=== PATIENT | female | born 1945 | race Caucasian/White ===

== ENCOUNTER 2018-06-11 09:00 | Day surgery (SDC) | payer OTHER ==
[2018-06-11] MEDS ORDERED: Ringers Lactate 1,000 ML IV ONE (09:44)
[2018-06-11] MEDS ORDERED: PROPOFOL 200 MG/20 ML VIAL IV ONE ×2 (11:01→11:36)
[2018-06-11] MEDS ORDERED: NS 0.9% VIAL 10 ML ONE (11:28)
[2018-06-11] MEDS ORDERED: Phenylephrine HCl 10 MG/ML 1 ML VIAL ONE (11:28)
[2018-06-11] MEDS ORDERED: MIDAZOLAM HCL 2 MG/2 ML INJ ONE (11:36)
[2018-06-11 12:12] VITALS: BP 100/52; TEMP 98.3; O2SAT 95
--- NOTE | 2018-06-11 12:57 | ENDO RPT ---
[address], [address] EGD PROCEDURE REPORT EXAM DATE: 06/11/2018 PATIENT NAME: Breanne Montes De Oca MR#: [id number] BIRTHDATE: 1945 ATTENDING: Maxwell Dudley Dr STATUS: outpatient STUBBER: Ginette Mo and Nery Chau RN INDICATIONS: The patient is a 73 yr old Female here for an EGD due to melenic bleeding, nausea, and weight loss PROCEDURE PERFORMED: EGD with biopsy MEDICATIONS: Per Anesthesia. TOPICAL ANESTHETIC: none CONSENT: The patient understands the risks and benefits of the procedure and understands that these risks include, but are not limited to: sedation, allergic reaction, infection, perforation and/or bleeding. Alternative means of evaluation and treatment include, among others: physical exam, x-rays, and/or surgical intervention. The patient elects to proceed with this endoscopic procedure. DESCRIPTION OF PROCEDURE: During intra-op preparation period all mechanical medical equipment was checked for proper function. Hand hygiene and appropriate measures for infection prevention was taken. Procedure, possible complications, and alternatives including but not limited to the possibility of bleeding, perforation, tear, infection, sepsis, need for surgery, need for blood transfusion, and anesthesia related complications were explained to the patient. After the risks, benefits and alternatives of the procedure were thoroughly explained, Informed consent was verified, confirmed and timeout was successfully executed by the treatment team. The patient was placed in the left lateral position. The patient was anesthetized with topical anesthesia. Through the anesthetized oropharyngeal area, the scope was passed without any difficulty. The EG-[id number] ([id number]) endoscope was introduced through the mouth and advanced to the third portion of the duodenum. Retroflexed views revealed a small hiatal hernia. The gastroscope was then slowly withdrawn and removed. A Schatzki's ring was found in the lower esophagus. A small hiatal hernia was found Mild gastritis was found in the antrum. Multiple biopsies were obtained and sent to pathology. Erosion in the antrum. 6 mm submucosal nodule in the antrum. Duodenitis was found in the bulb and descending duodenum. ADVERSE EVENTS: There were no complications. IMPRESSIONS: 1. A Schatzki's ring in the lower esophagus (no history of dysphagia) 2. A small hiatal hernia 3. Mild gastritis in the antrum 4. Erosion in the antrum 5. 6 mm submucosal nodule in the antrum 6. Mild duodenitis in the bulb and descending duodenum RECOMMENDATIONS: 1. await biopsy results 2. acid suppression therapy REPEAT EXAM: Maxwell Dudley Dr eSigned: Maxwell Dudley Dr 06/11/2018 11:29 AM Revised: 06/11/2018 11:29 AM cc: Pavithra Hernandez CPT CODES: ICD9 CODES: PATIENT NAME: Breanne Montes De Oca MR#: [id number]
--- NOTE | 2018-06-11 12:57 | ENDO RPT ---
[address], [address] COLONOSCOPY PROCEDURE REPORT EXAM DATE: 06/11/2018 PATIENT NAME: Breanne Montes De Oca MR #: [id number] BIRTHDATE: 1945 ATTENDING: Maxwell Dudley Dr STATUS: outpatient MEDICAL CENTER MANAGER: Ginette Mo and Nery Chau RN INDICATIONS: The patient is a 73 yr old Female here for a colonoscopy due to abdominal pain, change in bowel habits, constipation, melenic bleeding, and weight loss PROCEDURE PERFORMED: Colonoscopy MEDICATIONS: Per Anesthesia. ESTIMATED BLOOD LOSS: None CONSENT: The patient understands the risks and benefits of the procedure and understands that these risks include, but are not limited to: sedation, allergic reaction, infection, perforation and/or bleeding. Alternative means of evaluation and treatment include, among others: physical exam, x-rays, and/or surgical intervention. The patient elects to proceed with this endoscopic procedure. DESCRIPTION OF PROCEDURE: During intra-op preparation period all mechanical medical equipment was checked for proper function. Hand hygiene and appropriate measures for infection prevention was taken. Procedure, possible complications, alternatives including, but not limited to possibility of bleeding, perforation, tear, infection, sepsis, need for surgery, need for blood transfusion, were explained to the patient. After the risks, benefits and alternatives of the procedure were thoroughly explained, Informed consent was verified, confirmed and timeout was successfully executed by the treatment team. The patient was placed in the left lateral position. A digital rectal exam was performed and revealed no abnormalities of the rectum. After appropriate level of anesthesia, the scope was passed. The EG-[id number] ([id number]) and [id number] ([id number]) endoscope was introduced through the anus and advanced to the cecum. The quality of the prep was poor. The instrument was then slowly withdrawn as the colon was fully examined. Scope withdrawal time was 9 minutes. COLON FINDINGS: Moderate diverticulosis was noted in the sigmoid colon. No bleeding was noted from the diverticulosis. Diverticula was found throughout the entire examined colon. The opening was medium sized. Moderate sized internal hemorrhoids were found. Retroflexed views revealed medium hemorrhoids. The scope was then completely withdrawn from the patient and the procedure terminated. ADVERSE EVENTS: There were no complications. IMPRESSIONS: 1. Moderate diverticulosis in the sigmoid colon 2. Diverticula throughout the remainder of the examined colon 3. Moderate sized internal hemorrhoids 4. Intubation to cecum RECOMMENDATIONS: 1. fiber rich diet 2. yearly hemoccult (poor prep) 3. constipation therapy RECALL: Return in 5 year(s) for Colonoscopy. Maxwell Dudley Dr eSigned: Maxwell Dudley Dr 06/11/2018 11:59 AM cc: Pavithra Hernandez CPT CODES: ICD9 CODES: PATIENT NAME: Breanne Montes De Oca MR#: [id number]
--- NOTE | 2018-06-11 12:57 | ENDO RPT ---
[address], [address] EGD PROCEDURE REPORT EXAM DATE: 06/11/2018 PATIENT NAME: Breanne Montes De Oca MR#: [id number] BIRTHDATE: 1945 ATTENDING: Maxwell Dudley Dr STATUS: outpatient ROSS FURNACE OPERATOR: Ginette Mo and Nery Chau RN INDICATIONS: The patient is a 73 yr old Female here for an EGD due to melenic bleeding, nausea, and weight loss PROCEDURE PERFORMED: EGD with biopsy MEDICATIONS: Per Anesthesia. TOPICAL ANESTHETIC: none CONSENT: The patient understands the risks and benefits of the procedure and understands that these risks include, but are not limited to: sedation, allergic reaction, infection, perforation and/or bleeding. Alternative means of evaluation and treatment include, among others: physical exam, x-rays, and/or surgical intervention. The patient elects to proceed with this endoscopic procedure. DESCRIPTION OF PROCEDURE: During intra-op preparation period all mechanical medical equipment was checked for proper function. Hand hygiene and appropriate measures for infection prevention was taken. Procedure, possible complications, and alternatives including but not limited to the possibility of bleeding, perforation, tear, infection, sepsis, need for surgery, need for blood transfusion, and anesthesia related complications were explained to the patient. After the risks, benefits and alternatives of the procedure were thoroughly explained, Informed consent was verified, confirmed and timeout was successfully executed by the treatment team. The patient was placed in the left lateral position. The patient was anesthetized with topical anesthesia. Through the anesthetized oropharyngeal area, the scope was passed without any difficulty. The EG-[id number] ([id number]) endoscope was introduced through the mouth and advanced to the third portion of the duodenum. Retroflexed views revealed a small hiatal hernia. The gastroscope was then slowly withdrawn and removed. A Schatzki's ring was found in the lower esophagus. A small hiatal hernia was found Mild gastritis was found in the antrum. Multiple biopsies were obtained and sent to pathology. Erosion in the antrum. Duodenitis was found in the bulb and descending duodenum. ADVERSE EVENTS: There were no complications. IMPRESSIONS: 1. A Schatzki's ring in the lower esophagus (no history of dysphagia) 2. A small hiatal hernia 3. Mild gastritis in the antrum 4. Erosion in the antrum 5. Mild duodenitis in the bulb and descending duodenum RECOMMENDATIONS: 1. await biopsy results 2. acid suppression therapy REPEAT EXAM: Maxwell Dudley Dr eSigned: Maxwell Dudley Dr 06/11/2018 11:27 AM cc: Pavithra Hernandez CPT CODES: ICD9 CODES: PATIENT NAME: Breanne Montes De Oca MR#: [id number]
== END 2018-06-11 12:24 | disposition home or self-care (01) ==
LOC: OR 09:00
PROVIDERS: ATTEND Internal Medicine Gastroenterology
PROC: 0DJD8ZZ Inspection of Lower Intestinal Tract, Via Natural or Artificial Opening Endoscopic (ICD-10-PCS; principal; 2018-06-11 11:15)
PROC: 0DB68ZX Excision of Stomach, Via Natural or Artificial Opening Endoscopic, Diagnostic (ICD-10-PCS; 2018-06-11 11:15)
DX: K25.9 Gastric ulcer, unspecified as acute or chronic, without hemorrhage or perforation (principal); K29.50 Unspecified chronic gastritis without bleeding; K57.30 Diverticulosis of large intestine without perforation or abscess without bleeding; K29.80 Duodenitis without bleeding; K22.2 Esophageal obstruction; K44.9 Diaphragmatic hernia without obstruction or gangrene; R22.9 Localized swelling, mass and lump, unspecified; K64.8 Other hemorrhoids; I10 Essential (primary) hypertension; E03.9 Hypothyroidism, unspecified; I50.9 Heart failure, unspecified; J44.9 Chronic obstructive pulmonary disease, unspecified; M81.0 Age-related osteoporosis without current pathological fracture; Z87.891 Personal history of nicotine dependence
CPT/HCPCS: 43239; 45378; 88305; 88312; J2250; J2370

== ENCOUNTER 2019-09-22 12:49 | Observation (INO) | payer OTHER ==
--- OUTSIDE RECORDS SUMMARY | 2019-09-22 12:51 | XMS REPORT ---
:1945 Author Organization [facility] Address [address] [place] [address] Dr. Clark [address] [place] [id number] Care Team Providers Name Role Phone Unavailable Unavailable Unavailable Problems This patient has no known problems. Allergies, Adverse Reactions, Alerts This patient has no known allergies or adverse reactions. Medications This patient has no known medications. Encounters Start End Encounter Admission Attending Care Care Encounter Date/Time Date/Time Type Type Clinicians Facility Department ID 2019-09-15 Inpatient [facility] MED [id number] 00:38:00
[2019-09-22] MEDS ORDERED: PANTOPRAZOLE 40 MG INJ ONE (13:14)
[2019-09-22] MEDS ORDERED: NA CHLORIDE 0.9% 1,000 ML ONE (13:14)
--- NOTE | 2019-09-22 13:45 | RAD REPORT ---
EXAM DESCRIPTION: RAD - Chest Single View - 09/22/2019 1:35 pm CLINICAL HISTORY: COUGH Chest pain. COMPARISON: CHEST SINGLE VIEW dated 05/25/2015; CHEST SINGLE VIEW dated 05/24/2015; CHEST SINGLE VIEW da maria c 05/21/2015; CHEST SINGLE VIEW dated 11/29/2014 FINDINGS: Portable technique limits examination quality. Mild interstitial pulmonary edema is seen. The heart is moderately enlarged in size. No displaced fra ctures. IMPRESSION: Mild CHF.
[2019-09-22 14:04] LABS: ALT/SGPT 40 U/L (12-78); AST/SGOT 14 U/L (15-37); Albumin 3.2 g/dL (3.4-5.0); Alkaline Phosphatase 95 U/L (45-117); BUN Blood Urea Nitrogen 19 mg/dL (7-18); Bicarbonate 34 mmol/L (21-32); Bilirubin Direct 0.2 mg/dL (0-0.2); Bilirubin Total 0.6 mg/dL (0.2-1.0); Glucose Level 84 mg/dL (74-106); Lipase 105 U/L (73-393); NT PRO-BNP 928 pg/mL (<450); Protein, Total 6.6 g/dL (6.4-8.2); Sodium Level 140 mmol/L (136-145); Troponin (Emerg Dept Use Only) < 0.02 ng/mL (0.0-0.045)
[2019-09-22 14:08] LABS: Absolute Lymphocytes (CBC) 2.7 K/uL (0.7-4.9); Basophils % 0.4 % (0-1.3); Hematocrit 36.8 % (36.0-45.0); Lymphocytes % 19.1 % (15.3-44.8); MPV 9.3 fL (7.6-11.3); RBC Red Blood Cell Count 4.03 M/uL (3.86-4.86)
[2019-09-22 14:10] LABS: Protime INR 0.97
--- NOTE | 2019-09-22 14:50 | EKG ---
Test Date: 2019-09-22 Test Time: 14:37:57 Flag Signalman: STELLA MEASUREMENT RESULTS: Intervals: Rate: 61 RI: 148 QRSD: 80 QT: 440 QTc: 442 [place]: P: 55 RI: 148 QRS: 28 T: 24 INTERPRETIVE STATEMENTS: Normal sinus rhythm Nonspecific ST abnormality Abnormal ECG Compared to ECG 05/25/2015 06:36:04 ST (T wave) deviation now present Electronically Signed On 09-22-19 14:50:03 IRRIGATION MANAGER by Roland Guardado
--- NOTE | 2019-09-22 14:50 | ER ---
Nurse's Notes [facility] Name: Breanne Montes De Oca Age: 74 yrs Sex: Female : 1945 Arrival Date: 09/22/2019 Time: 12:54 Bed 3 Private MD: Diagnosis: Syncope and collapse;Weakness;Obesity, unspecified;Urinary tract infection, site not specified;Unspecified combined systolic (congestive) and diastolic (congestive) heart failure Presentation: 09/22 12:49 Presenting complaint: EMS states: called out by Elsy Hernandez's office for sv hypotension 100/30. Pt was recently released from [facility] a week ago with GI bleed. States they also dx her with a UTI. Transition of care: patient was not received from another setting of care. Onset of symptoms was September 22, 2019. Risk Assessment: Do you want to hurt yourself or someone else? Patient reports no desire to harm self or others. Initial Sepsis Screen: Does the patient meet any 2 criteria? No. Patient's initial sepsis screen is negative. Does the patient have a suspected source of infection? No. Patient's initial sepsis screen is negative. Care prior to arrival: None. 12:49 Method Of Arrival: EMS: [facility] sv 12:49 Acuity: FIOR 3 sv Triage Assessment: 12:49 General: Appears in no apparent distress. comfortable, obese, well developed, Behavior sv is calm, cooperative, appropriate for age. Pain: Denies pain. Neuro: Level of Consciousness is awake, alert, obeys commands, Oriented to person, place, time, situation, Moves all extremities. Full function Speech is normal. Cardiovascular: Patient's skin is warm and dry. Pulses are 3+ in right radial artery and left radial artery. Respiratory: Airway is patent Respiratory effort is even, unlabored, Respiratory pattern is regular, symmetrical. Derm: Skin is pink, warm \T\ dry. Historical: - Allergies: 12:59 No Known Drug Allergies; sv - Home Meds: 12:59 Levoxyl 100 mcg Oral tab 1 tab once daily [Active]; amlodipine 5 mg tab 1 tab once sv daily [Active]; trelegy elllipta 100-62.5-25 mcg 1 puff daily [Active]; ProAir HFA 90 mcg/actuation inhalation HFAA [Active]; Lasix 40 mg Oral tab 1 tab daily prn [Active]; metoprolol tartrate 50 mg Oral tab 1 tab 2 times per day [Active]; Vesicare 5 mg oral tab 1 tab once daily [Active]; gabapentin 100 mg oral cap nightly [Active]; Klor-Con M20 20 mEq Oral TbTQ 1 tab once daily [Active]; Pravachol 20 mg Oral tab nightly [Active]; - PMHx: 12:59 Asthma; Bronchitis; COPD; Hypertension; sv 13:01 CHF; Aortic aneurysm; Urinary incontinence; Osteoporosis; Hypothyroidism; Psoriasis; sv Arthritis; Bipolar disorder; - PSHx: 12:59 Cholecystectomy; Appendectomy; sv - Immunization history:: Adult Immunizations up to date. - Social history:: Smoking status: Patient/guardian denies using tobacco. - Ebola Screening: : No symptoms or risks identified at this time. - Family history:: not pertinent. Screenin:56 Abuse screen: Denies threats or abuse. Denies injuries from another. Nutritional hb screening: No deficits noted. Tuberculosis screening: No symptoms or risk factors identified. Fall Risk Total Mcghee Fall Scale indicates Low Risk Score (25-44 pts). Fall prevention measures have been instituted. Side Rails Up X 2 Frequent Obs/Assesments occuring As available Patient and Family Educated on Fall Prevention Program and strategies. Assessment: 13:17 Reassessment: Inside lab at the bedside to obtain blood. sv 14:10 Reassessment: Patient appears in no apparent distress at this time. Patient and/or hb family updated on plan of care and expected duration. Pain level reassessed. Patient is alert, oriented x 3, equal unlabored respirations, skin warm/dry/pink. 15:54 Reassessment: Patient appears in no apparent distress at this time. Patient and/or sv family updated on plan of care and expected duration. Pain level reassessed. Patient is alert, oriented x 3, equal unlabored respirations, skin warm/dry/pink. Vital Signs: 13:01 BP 186 / 58; Pulse 55; Resp 20; Temp 98.2; Pulse Ox 99% ; Weight 161.03 kg; Height 5 sv ft. 2 in. (157.48 cm); Pain 0/10; 13:01 Body Mass Index 64.93 (161.03 kg, 157.48 cm) sv ED Course: 12:49 Patient has correct armband on for positive identification. Placed in gown. Bed in low sv position. Call light in reach. Side rails up X2. hall monitor on. Pulse ox on. NIBP on. Door closed. Head of bed elevated. 12:54 Patient arrived in ED. sv 12:54 Elsy Thao, RN is Primary Nurse. sv 12:56 Triage completed. sv 12:56 Arm band placed on. hb 12:58 Fritz Gomez MD is Attending Physician. clover 13:15 Inserted saline lock: 22 gauge in right forearm, using aseptic technique. Flushed right sv forearm with 5 ml normal saline. 14:00 EKG done, by audiometric technician. reviewed by Fritz Gomez MD. at1 14:46 Prince Leal MD is Hospitalizing Provider. clover 14:53 Urine collected: clean catch specimen, clear. dh3 15:29 CT Aorta for Dissection In Process Unspecified. EDMS 15:45 Urine Dipstick--Ancillary (enter results) Sent. sv 15:45 XRAY Chest (1 view) Sent. sv 15:53 No provider procedures requiring assistance completed. Patient admitted, IV remains in sv place. intact. Administered Medications: Discontinued: NS 0.9% 1000 ml IV at 125 ml/hr continuous 13:17 Drug: ProTONIX 40 mg Route: IVP; Site: right forearm; sv 14:00 Follow up: Response: No adverse reaction sv 13:18 Drug: NS 0.9% 500 ml Route: IV; Rate: bolus; Site: right forearm; sv 14:02 Follow up: Response: No adverse reaction; IV Status: Completed infusion; IV Intake: hb 500ml 13:48 Not Given (Duplicate Order): NS 0.45 % 1000 ml IV at 125 ml/hr continuous clover 14:08 Drug: NS 0.9% 1000 ml Route: IV; Rate: 125 ml/hr; Site: right forearm; hb 16:15 Drug: Lasix 20 mg Route: IVP; Site: left antecubital; sv 16:18 Follow up: Response: No adverse reaction sv 16:17 Drug: Rocephin 1 grams Route: IV; Rate: per protocol; Site: left antecubital; sv 16:18 Follow up: Response: No adverse reaction; IV Status: Completed infusion; IV Intake: 10mlsv Intake: 14:02 IV: 500ml; Total: 500ml. hb 16:18 IV: 10ml; Total: 510ml. sv Outcome: 14:49 Decision to Hospitalize by Provider. clover 16:10 Admitted to Tele accompanied by tech, via wheelchair, room 427, with oxygen, with sv chart, Report called to Senia FRANKLIN 16:10 Condition: stable 16:10 Instructed on the need for admit. 16:18 Patient left the ED. sv Signatures: Dispatcher [employer] Elsy Nicole, RN RN Fritz Rincon MD MD cha Gonzales, Amanda, restoration ecologist EKG Tat1 Isabel Madrigal RN RN ofelia Jernigan, Kat 3
--- NOTE | 2019-09-22 14:51 | EDPHYS ---
Physician Documentation [facility] Name: Breanne Montes De Oca Age: 74 yrs Sex: Female : 1945 Arrival Date: 09/22/2019 Time: 12:54 Bed 3 Private MD: ED Physician Fritz Gomez HPI: 09/22 13:49 This 74 yrs old Female presents to ER via EMS with complaints of Hypotension. clover 13:49 weakness. Onset: The symptoms/episode began/occurred just prior to arrival, this clover morning. Severity of symptoms: At their worst the symptoms were mild moderate in the emergency department the symptoms are unchanged. The patient has not experienced similar symptoms in the past. Historical: - Allergies: 12:59 No Known Drug Allergies; sv - Home Meds: 12:59 Levoxyl 100 mcg Oral tab 1 tab once daily [Active]; amlodipine 5 mg tab 1 tab once sv daily [Active]; trelegy elllipta 100-62.5-25 mcg 1 puff daily [Active]; ProAir HFA 90 mcg/actuation inhalation HFAA [Active]; Lasix 40 mg Oral tab 1 tab daily prn [Active]; metoprolol tartrate 50 mg Oral tab 1 tab 2 times per day [Active]; Vesicare 5 mg oral tab 1 tab once daily [Active]; gabapentin 100 mg oral cap nightly [Active]; Klor-Con M20 20 mEq Oral TbTQ 1 tab once daily [Active]; Pravachol 20 mg Oral tab nightly [Active]; - PMHx: 12:59 Asthma; Bronchitis; COPD; Hypertension; sv 13:01 CHF; Aortic aneurysm; Urinary incontinence; Osteoporosis; Hypothyroidism; Psoriasis; sv Arthritis; Bipolar disorder; - PSHx: 12:59 Cholecystectomy; Appendectomy; sv - Immunization history:: Adult Immunizations up to date. - Social history:: Smoking status: Patient/guardian denies using tobacco. - Ebola Screening: : No symptoms or risks identified at this time. - Family history:: not pertinent. ROS: 13:49 Constitutional: Negative for fever, chills, and weight loss, Eyes: Negative for injury, clover pain, redness, and discharge, ENT: Negative for injury, pain, and discharge, Neck: Negative for injury, pain, and swelling, Cardiovascular: Negative for chest pain, palpitations, and edema, Respiratory: Negative for shortness of breath, cough, wheezing, and pleuritic chest pain, Abdomen/GI: Negative for abdominal pain, nausea, vomiting, diarrhea, and constipation, Back: Negative for injury and pain, : Negative for injury, bleeding, discharge, and swelling, MS/Extremity: Negative for injury and deformity, Skin: Negative for injury, rash, and discoloration, Psych: Negative for depression, anxiety, suicide ideation, homicidal ideation, and hallucinations, Allergy/Immunology: Negative for hives, rash, and allergies, Endocrine: Negative for neck swelling, polydipsia, polyuria, polyphagia, and marked weight changes, Hematologic/Lymphatic: Negative for swollen nodes, abnormal bleeding, and unusual bruising. 13:49 Neuro: Positive for near syncope, weakness. Exam: 13:49 Constitutional: This is a well developed, well nourished patient who is awake, alert, clover and in no acute distress. Head/Face: Normocephalic, atraumatic. Eyes: Pupils equal round and reactive to light, extra-ocular motions intact. Lids and lashes normal. Conjunctiva and sclera are non-icteric and not injected. Cornea within normal limits. Periorbital areas with no swelling, redness, or edema. ENT: Nares patent. No nasal discharge, no septal abnormalities noted. Tympanic membranes are normal and external auditory canals are clear. Oropharynx with no redness, swelling, or masses, exudates, or evidence of obstruction, uvula midline. Mucous membranes moist. Neck: Trachea midline, no thyromegaly or masses palpated, and no cervical lymphadenopathy. Supple, full range of motion without nuchal rigidity, or vertebral point tenderness. No Meningismus. Chest/axilla: Normal chest wall appearance and motion. Nontender with no deformity. No lesions are appreciated. Cardiovascular: Regular rate and rhythm with a normal S1 and S2. No gallops, murmurs, or rubs. Normal PMI, no JVD. No pulse deficits. Respiratory: Lungs have equal breath sounds bilaterally, clear to auscultation and percussion. No rales, rhonchi or wheezes noted. No increased work of breathing, no retractions or nasal flaring. Abdomen/GI: Soft, non-tender, with normal bowel sounds. No distension or tympany. No guarding or rebound. No evidence of tenderness throughout. Back: No spinal tenderness. No costovertebral tenderness. Full range of motion. Female : Normal external genitalia. Skin: Warm, dry with normal turgor. Normal color with no rashes, no lesions, and no evidence of cellulitis. MS/ Extremity: Pulses equal, no cyanosis. Neurovascular intact. Full, normal range of motion. Neuro: Awake and alert, GCS 15, oriented to person, place, time, and situation. Cranial nerves II-XII grossly intact. Motor strength 5/5 in all extremities. Sensory grossly intact. Cerebellar exam normal. Normal gait. Psych: Awake, alert, with orientation to person, place and time. Behavior, mood, and affect are within normal limits. 13:49 Abdomen/GI: Inspection: abdomen appears normal, Bowel sounds: normal, active, all quadrants, Palpation: abdomen is soft and non-tender, Rectal exam: rectal tone normal, Stool: guaiac negative, hemorrhoid(s), are not appreciated, mass, is not appreciated, swelling, is not appreciated. 13:56 Abdomen/GI: Rectal exam: tenderness, is not appreciated, fecal impaction, is not clover appreciated. Vital Signs: 13:01 BP 186 / 58; Pulse 55; Resp 20; Temp 98.2; Pulse Ox 99% ; Weight 161.03 kg; Height 5 sv ft. 2 in. (157.48 cm); Pain 0/10; 13:01 Body Mass Index 64.93 (161.03 kg, 157.48 cm) sv MDM: 13:04 Patient medically screened. [facility] 13:52 Data reviewed: vital signs, nurses notes, lab test result(s), EKG, radiologic studies, [facility] CT scan, plain films. 09/22 13:02 Order name: Basic Metabolic Panel [facility] 09/22 13:02 Order name: CBC with Diff; Complete Time: 14:43 [facility] 09/22 13:02 Order name: LFT's [facility] 09/22 13:02 Order name: Magnesium [facility] 09/22 13:02 Order name: NT PRO-BNP [facility] 09/22 13:02 Order name: PT-INR; Complete Time: 14:43 [facility] 09/22 13:02 Order name: Troponin (emerg Dept Use Only) [facility] 09/22 13:02 Order name: XRAY Chest (1 view) [facility] 09/22 13:02 Order name: Lipase [facility] 09/22 13:02 Order name: Type And Screen; Complete Time: 14:43 clover 09/22 13:02 Order name: Urine Culture [facility] 09/22 13:49 Order name: TSH; Complete Time: 15:45 clover 09/22 14:56 Order name: Urine Dipstick--Ancillary (enter results) 09/22 15:17 Order name: Urine Dipstick-Ancillary EDMS 09/22 13:02 Order name: EKG; Complete Time: 13:04 clover 09/22 13:02 Order name: Cardiac monitoring; Complete Time: 13:15 clover 09/22 13:02 Order name: EKG - Nurse/Tech; Complete Time: 15:45 [facility] 09/22 13:02 Order name: IV Saline Lock; Complete Time: 13:18 clover 09/22 13:02 Order name: Labs collected and sent; Complete Time: 15:45 [facility] 09/22 13:02 Order name: O2 Per Protocol; Complete Time: 13:15 [facility] 09/22 13:02 Order name: O2 Sat Monitoring; Complete Time: 13:15 clover 09/22 13:53 Order name: CT Aorta for Dissection [facility] 09/22 14:45 Order name: Echo w/ Doppler [facility] 09/22 15:26 Order name: RAD; Complete Time: 15:45 [facility] 09/22 13:02 Order name: Urine Dipstick-Ancillary (obtain specimen); Complete Time: 14:53 [facility] 09/22 13:02 Order name: IV Saline Lock - Large Bore; Complete Time: 13:18 clover Administered Medications: Discontinued: NS 0.9% 1000 ml IV at 125 ml/hr continuous 13:17 Drug: ProTONIX 40 mg Route: IVP; Site: right forearm; sv 14:00 Follow up: Response: No adverse reaction sv 13:18 Drug: NS 0.9% 500 ml Route: IV; Rate: bolus; Site: right forearm; sv 14:02 Follow up: Response: No adverse reaction; IV Status: Completed infusion; IV Intake: hb 500ml 13:48 Not Given (Duplicate Order): NS 0.45 % 1000 ml IV at 125 ml/hr continuous clover 14:08 Drug: NS 0.9% 1000 ml Route: IV; Rate: 125 ml/hr; Site: right forearm; hb 16:15 Drug: Lasix 20 mg Route: IVP; Site: left antecubital; sv 16:18 Follow up: Response: No adverse reaction sv 16:17 Drug: Rocephin 1 grams Route: IV; Rate: per protocol; Site: left antecubital; sv 16:18 Follow up: Response: No adverse reaction; IV Status: Completed infusion; IV Intake: 10mlsv Disposition: 09/22/19 14:49 Hospitalization ordered by Prince Elvis for Inpatient Admission. Preliminary diagnosis are Syncope and collapse, Weakness, Obesity, unspecified, Urinary tract infection, site not specified, Unspecified combined systolic (congestive) and diastolic (congestive) heart failure. - Bed requested for Telemetry/MedSurg (Inpatient). - Status is Inpatient Admission. sv - Condition is Fair. - Problem is new. - Symptoms have improved. UTI on Admission? No Signatures: Dispatcher [employer] EDMS Rosalba Ryan Stephanie, RN RN sv Woody, Diana, RN RN dw Anderson, Corey, MD MD cha Baxter, Heather, RN RN Corrections: (The following items were deleted from the chart) 14:55 14:49 Hospitalization Ordered by Prince Elvis LOVETT for Inpatient Admission. Preliminary [facility] diagnosis is Syncope and collapse; Weakness; Obesity, unspecified. Bed requested for Telemetry/MedSurg (Inpatient). Status is Inpatient Admission. Condition is Fair. Problem is new. Symptoms have improved. UTI on Admission? No. clover 15:46 14:55 09/22/2019 14:49 Hospitalization Ordered by Prince Elvis LOVETT for Inpatient clover Admission. Preliminary diagnosis is Syncope and collapse; Weakness; Obesity, unspecified; Urinary tract infection, site not specified. Bed requested for Telemetry/MedSurg (Inpatient). Status is Inpatient Admission. Condition is Fair. Problem is new. Symptoms have improved. UTI on Admission? No. clover 15:51 15:46 09/22/2019 14:49 Hospitalization Ordered by Prince Elvis LOVETT for Inpatient dw Admission. Preliminary diagnosis is Syncope and collapse; Weakness; Obesity, unspecified; Urinary tract infection, site not specified; Unspecified combined systolic (congestive) and diastolic (congestive) heart failure. Bed requested for Telemetry/MedSurg (Inpatient). Status is Inpatient Admission. Condition is Fair. Problem is new. Symptoms have improved. UTI on Admission? No. clover 16:13 15:51 09/22/2019 14:49 Hospitalization Ordered by Prince Elvis LOVETT for Inpatient bd Admission. Preliminary diagnosis is Syncope and collapse; Weakness; Obesity, unspecified; Urinary tract infection, site not specified; Unspecified combined systolic (congestive) and diastolic (congestive) heart failure. Bed requested for Telemetry/MedSurg (Inpatient). Status is Inpatient Admission. Condition is Fair. Problem is new. Symptoms have improved. UTI on Admission? No. dw 16:18 16:13 09/22/2019 14:49 Hospitalization Ordered by Prince Elvis LOVETT for Inpatient sv Admission. Preliminary diagnosis is Syncope and collapse; Weakness; Obesity, unspecified; Urinary tract infection, site not specified; Unspecified combined systolic (congestive) and diastolic (congestive) heart failure. Bed requested for Telemetry/MedSurg (Inpatient). Status is Inpatient Admission. Condition is Fair. Problem is new. Symptoms have improved. UTI on Admission? No. bd
[2019-09-22 15:16] LABS: Urine Blood NEGATIVE (NEG); Urine Glucose NEGATIVE (NEG); Urine Protein NEGATIVE (NEG); Urine pH 5.5 (5.0-7.0)
--- NOTE | 2019-09-22 15:34 | RAD REPORT ---
EXAM DESCRIPTION: CT - Angio Aorta For Dissection - 09/22/2019 3:08 pm CLINICAL HISTORY: . Chest and abdominal pain COMPARISON: 2018 TECHNIQUE: Computed tomography angiography of the chest, abdomen pelvis were obtained. 100 cc Isovue 370 was administered intravenously. Coronal and sagittal reconstruction were performed. MIP 3D reconstruction was performed All CT scans are performed using dose optimization technique as appropriate and may include automated exposure control or mA/KV adjustment according to patient size. FINDINGS: An aortic dissection is not seen. A 4.6 centimeter aneurysm ascending thoracic aorta The celiac, SMA and BRAD are patent . Mild to moderate patchy ground-glass opacities within the right lung. A pericardial effusion is not seen. A pleural effusion is not noted. The liver,spleen, pancreas adrenals left kidney demonstrate no significant abnormality. 6.5 centimete r right renal cystic mass containing septation unchanged. Small umbilical hernia Extensive diverticulosis without diverticulitis. IMPRESSION: Negative for an aortic dissection. Ascending thoracic aortic aneurysm measuring 4.6 centimeters [id number] right lung alveolitis 6.4 centimeter complex right renal cyst
[2019-09-22] MEDS ORDERED: FUROSEMIDE 20 MG/ 2ML VIAL ONE (15:42)
[2019-09-22] MEDS ORDERED: CEFTRIAXONE/SWI 1gm 1 GM/10 ML SYR ONE (15:57)
--- NOTE | 2019-09-22 16:11 | P.HP ---
Certification for Inpatient Patient admitted to: Observation With expected LOS: <2 Midnights Practitioner: I am a practitioner with admitting privileges, knowledge of patient current condition, hospital course, and medical plan of care. Services: Services provided to patient in accordance with Admission requirements found in Title 42 Section 412.3 of the Code of Federal Regulations Patient History Date of Service: 09/22/19 Reason for admission: High BP, recent syncope and possible CVA History of Present Illness: Patient is a 74-year-old female with a known past medical history of chronic respiratory failure secondary to COPD on 4 L of oxygen at home, recent diagnosis of CVA/TIA requiring admission 5 days ago at [facility]. During that time, she was found down and life flighted to [facility] where she required ICU admission upon presentation. As per family, she was found to have CVA She presented to the ER with daughter upon recommendation by her PCP after she was found to be hypertensive during a routine vital check. The patient was following up with her PCP 2 days and she was told to present to the ER as a PCP was concerned about her widened pulse pressure. She had a diastolic blood pressure in 30 years. Daughter states that nothing has been unusual since her discharge from the hospital a few days ago. However, patient stated that she has been feeling unwell. She is a poor historian. 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 Allergies No Known Drug Allergies Allergy (Verified 05/25/15 03:24) Unknown Home medications list reviewed: Yes Home Medications: Divalproex Sodium [Depakote] 500 mg PO BID 11/27/14 Furosemide [Lasix] 40 mg PO DAILY 11/27/14 Loratadine [Claritin*] 10 mg PO DAILY 11/27/14 Potassium Chloride [Klor-Con 10] 20 meq PO DAILY 11/27/14 Pravastatin Sodium [Pravachol] 20 mg PO DAILY 11/27/14 Metoprolol Succinate [Toprol Xl*] 50 mg PO DAILY #30 tab 11/30/14 Omeprazole [Prilosec] 40 mg PO DAILY 05/25/15 Doxycycline Hyclate 100 mg PO BID #14 tablet 05/26/15 Amlodipine [Norvasc] 5 mg PO DAILY 06/11/18 Levothyroxine Sodium [Levoxyl] 100 mcg PO 06/11/18 Losartan Potassium [Cozaar] 50 mg PO DAILY 06/11/18 - Past Medical/Surgical History Diabetic: No -: COPD -: HTN -: BRONCHITIS -: EMPHYSEMA -: HLD -: BIPOLAR DISORDER -: CLAUSTROPHOBIA -: SLEEP APNEA -: HYPOTHYROIDISM -: GERD -: APPY -: LILI - Family History Mother -: Heart disease, Lung disease Father -: Cancer Brother -: Lung disease, Cancer Sister -: Lung disease, Cancer - Social History Alcohol use: No CD- Drugs: No Caffeine use: No Physical Examination - Physical Exam General: Alert, In no apparent distress, Cooperative HEENT: Atraumatic, Normocephalic, PERRLA, EOMI Respiratory: Clear to auscultation bilaterally, Normal air movement Cardiovascular: No edema, Regular rate/rhythm, Normal S1 S2 Gastrointestinal: Normal bowel sounds, Soft and benign, No tenderness, No rebound Integumentary: No significant lesion, Warmth - Studies Laboratory Data (last 24 hrs) 09/22/19 13:26: PT 11.5, INR 0.97 09/22/19 13:26: WBC 13.9 H, Hgb 12.4, Hct 36.8, Plt Count 423 H 09/22/19 13:26: Sodium 140, Potassium 4.0, BUN 19 H, Creatinine 0.84, Glucose 84 , Magnesium 2.0, Total Bilirubin 0.6, AST 14 L, ALT 40, Alkaline Phosphatase 95 , Lipase 105 Assessment and Plan - Problems (Diagnosis) (1) Syncope Current Visit: Yes Status: Acute (2) Leukocytosis Onset Date: 05/25/15 Current Visit: No Status: Acute (3) COPD (chronic obstructive pulmonary disease) Onset Date: 05/25/15 Current Visit: No Status: Acute (4) Chronic respiratory failure Current Visit: Yes Status: Acute (5) CHF (congestive heart failure) Onset Date: 05/25/15 Current Visit: No Status: Acute - Plan Impression: Patient is a elderly female with chronic respiratory failure secondary to COPD, recent diagnosis of CVA who presented with dyspnea on exertion, found to have abnormal vital signs during a routine visit at her PCP and was urged to present to the ER for further management. During encounter, patient was in no acute distress. She presented nonspecific symptoms mainly not feeling well and getting tired and short of breath more frequently Plan: 1. Admit under observation with telemetry. 2. Follow up a 2D echo to assess the reason for dyspnea on exertion 3. Continue supplemental oxygen via nasal cannula. Patient's baseline is 4 L of oxygen 4. Check thyroid function test, vitamin-D level, folic acid and vitamin B12. 5. Check lactic acid and procalcitonin for elevated WBC. - Advance Directives Does patient have a Living Will: No Does patient have a Durable POA for Healthcare: No
[2019-09-22 18:01] LABS: CKMB Creatine Kinase MB 1.2 ng/mL (0.3-3.6)
[2019-09-22] MEDS: DIVALPROEX DR 500MG TAB PO SCH (20:49)
[2019-09-23 00:27] VITALS: O2SAT 100
[2019-09-23] MEDS ORDERED: PANTOPRAZOLE 40MG TABLET PO SCH (06:30)
[2019-09-23 07:20] VITALS: BMI 45.7
[2019-09-23] MEDS ORDERED: LEVOTHYROXINE SOD 0.1 MG TAB PO SCH (07:30)
[2019-09-23 08:25] LABS: Absolute Lymphocytes (CBC) 1.2 K/uL (0.7-4.9); Basophils % 0.6 % (0-1.3); Hematocrit 35.6 % (36.0-45.0); Lymphocytes % 7.5 % (15.3-44.8); MPV 8.9 fL (7.6-11.3); RBC Red Blood Cell Count 3.92 M/uL (3.86-4.86)
[2019-09-23] MEDS ORDERED: LORATADINE 10 MG TAB PO SCH (09:00)
[2019-09-23] MEDS ORDERED: LOSARTAN POTASSIUM 50 MG TABLET PO SCH (09:00)
[2019-09-23] MEDS: DIVALPROEX DR 500MG TAB PO SCH (09:41)
--- NOTE | 2019-09-23 14:00 | P.DS ---
Admission Date: 09/22/19 Discharge Date: 09/23/19 Discharge Condition: GOOD Reason for Admission: High BP, recent syncope and possible CVA - Problems (1) Syncope Current Visit: Yes Status: Acute (2) Leukocytosis Onset Date: 05/25/15 Current Visit: No Status: Acute (3) COPD (chronic obstructive pulmonary disease) Onset Date: 05/25/15 Current Visit: No Status: Acute (4) Chronic respiratory failure Current Visit: Yes Status: Acute (5) CHF (congestive heart failure) Onset Date: 05/25/15 Current Visit: No Status: Acute Brief History of Present Illness: Patient is a 74-year-old female with a known past medical history of chronic respiratory failure secondary to COPD on 4 L of oxygen at home, recent diagnosis of CVA/TIA requiring admission 5 days ago at [facility]. During that time, she was found down and life flighted to [facility] where she required ICU admission upon presentation. As per family, she was found to have CVA She presented to the ER with daughter upon recommendation by her PCP after she was found to be hypertensive during a routine vital check. The patient was following up with her PCP 2 days and she was told to present to the ER as a PCP was concerned about her widened pulse pressure. She had a diastolic blood pressure in 30 years. Daughter states that nothing has been unusual since her discharge from the hospital a few days ago. However, patient stated that she has been feeling unwell. She is a poor historian. 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 Hospital Course: Patient's hospital course has been relatively unremarkable. She underwent workup for her generalized weakness and malaise. She was found to have vitamin- D deficiency. Physical therapy cleared the patient for discharge. An echocardiogram given her history of CVA and syncope. Results are still pending. Additional workup revealed rising WBC. Patient was reporting some frequency and urgency. She has been prescribed Bactrim as outpatient but she has yet to start taking the medication. She was advised to start taking Bactrim and present to her PCP in 2 days. Vital Signs/Physical Exam: Temp Pulse Resp BP Pulse Ox 96.9 F 81 18 128/59 L 99 09/23/19 12:00 09/23/19 12:00 09/23/19 12:00 09/23/19 12:00 09/23/19 12:00 General: Alert, In no apparent distress, Cooperative HEENT: Atraumatic, Normocephalic, EOMI Respiratory: Clear to auscultation bilaterally, Normal air movement Cardiovascular: Normal pulses, Regular rate/rhythm, Normal S1 S2 Gastrointestinal: Normal bowel sounds, Soft and benign, Non-distended Musculoskeletal: No swelling, No contractures, No tenderness Integumentary: No rashes, Warmth Neurological: Normal speech, Normal affect, Other (With a walker) Laboratory Data at Discharge: WBC 15.9 K/uL (4.3-10.9) H D 09/23/19 08:12 Hgb 11.7 g/dL (12.0-15.0) L 09/23/19 08:12 Hct 35.6 % (36.0-45.0) L 09/23/19 08:12 Plt Count 395 K/uL (152-406) 09/23/19 08:12 PT 11.5 SECONDS (9.5-12.5) 09/22/19 13:26 INR 0.97 09/22/19 13:26 Sodium 140 mmol/L (136-145) 09/22/19 13:26 Potassium 4.0 mmol/L (3.5-5.1) 09/22/19 13:26 BUN 19 mg/dL (7-18) H 09/22/19 13:26 Creatinine 0.84 mg/dL (0.55-1.3) 09/22/19 13:26 Glucose 84 mg/dL (74-106) 09/22/19 13:26 Magnesium 2.0 mg/dL (1.8-2.4) 09/22/19 13:26 Total Bilirubin 0.6 mg/dL (0.2-1.0) 09/22/19 13:26 AST 14 U/L (15-37) L 09/22/19 13:26 ALT 40 U/L (12-78) 09/22/19 13:26 Alkaline Phosphatase 95 U/L (45-117) 09/22/19 13:26 Lipase 105 U/L (73-393) 09/22/19 13:26 Home Medications: Divalproex Sodium [Depakote] 500 mg PO BID 11/27/14 Furosemide [Lasix] 40 mg PO DAILY 11/27/14 Loratadine [Claritin*] 10 mg PO DAILY 11/27/14 Potassium Chloride [Klor-Con 10] 20 meq PO DAILY 11/27/14 Pravastatin Sodium [Pravachol] 20 mg PO DAILY 11/27/14 Metoprolol Succinate [Toprol Xl*] 50 mg PO DAILY #30 tab 11/30/14 Omeprazole [Prilosec] 40 mg PO DAILY 05/25/15 Amlodipine [Norvasc*] 5 mg PO DAILY 06/11/18 Levothyroxine Sodium [Levoxyl] 100 mcg PO [id number] 06/11/18 Losartan Potassium [Cozaar*] 50 mg PO DAILY 06/11/18 Albuterol Sulfate [Proair Hfa] 1 - 2 puff IH Q4HP PRN 09/22/19 Fluticasone/Umeclidin/Vilanter [Trelegy Ellipta 100-62.5-25] 1 puff IH DAILY 03/06 Solifenacin Succinate 1 tab PO DAILY 09/22/19 Cholecalciferol (Vitamin D3) [Children's Vitamin D3] 1,000 unit PO DAILY #30 tab.chew 09/23/19 Ergocalciferol (Vitamin D2) [Drisdol] 50,000 unit PO EVERY 7TH DAY #8 capsule Smz./Tmp. [Bactrim Ds 800 MG/160 MG] 1 tab PO BID #8 tab 09/23/19 New Medications: Cholecalciferol (Vitamin D3) [Children's Vitamin D3] 1,000 unit PO DAILY #30 tab.chew Ergocalciferol (Vitamin D2) [Drisdol] 50,000 unit PO EVERY 7TH DAY #8 capsule Smz./Tmp. [Bactrim Ds 800 MG/160 MG] 1 tab PO BID #8 tab Diet: AHA
[2019-09-23 16:53] VITALS: BP 130/60; TEMP 97.8
--- NOTE | 2019-09-24 08:12 | ECHO ---
HEIGHT: 5 ft 2 in WEIGHT: 250 lb 0 oz DATE OF STUDY: 09/23/[address]: Fritz Gomez MD 2-DIMENSIONAL: YES M.MODE: YES DOPPLER: YES COLOR FLOW: YES TDS: YES PORTABLE: NO DEFINITY: NO BUBBLE STUDY: NO DIAGNOSIS: SYNCOPE CARDIAC HISTORY: CATHERIZATION: YES SURGERY: NO PROSTHETIC VALVE: NO PACEMAKER: NO MEASUREMENTS (cm) DIASTOLIC (NORMALS) SYSTOLIC (NORMALS) IVSd 1.1 (0.6-1.2) LA Diam 3.2 (1.9-4.0) LVEF 56% LVIDd 3.8 (3.5-5.7) LVIDs 2.7 (2.0-3.5) %FS 29% LVPWd 1.4 (0.6-1.2) Ao Diam 2.9 (2.0-3.7) 2 DIMENSIONAL ASSESSMENT: RIGHT ATRIUM: NORMAL LEFT ATRIUM: NORMAL RIGHT VENTRICLE: NORMAL LEFT VENTRICLE: LEFT VENTRICULAR HYPERTROPHY TRICUSPID VALVE: NORMAL MITRAL VALVE: MITRAL ANNULAR CALCIFICATION PULMONIC VALVE: NORMAL AORTIC VALVE: NORMAL PERICARDIAL EFFUSION: NONE AORTIC ROOT: NOMRAL LEFT VENTRICULAR WALL MOTION: NORMAL. DOPPLER/COLOR FLOW: NORMAL. COMMENTS: MITRAL ANNULAR CALCIFICATION. MILD LEFT VENTRICULAR HYPERTROPHY. NO WALL MOTION ABNORMALITY. NO EFFUSION. TECHNOLOGIST: JIMMIE BOURGEOIS
[2019-09-28 05:24] LABS: Vitamin D 1,25-Dihydroxy Total 40 pg/mL (18-72); Vitamin D,1,25-OH2, D2 <8 pg/mL
== END 2019-09-23 18:13 | disposition home or self-care (01) ==
LOC: ER 12:49 → ERHOLD 15:14 → 4TH 16:04
PROVIDERS: ADMIT Internal Medicine; ATTEND Internal Medicine
DX: R55 Syncope and collapse (principal); D72.829 Elevated white blood cell count, unspecified; J96.20 Acute and chronic respiratory failure, unspecified whether with hypoxia or hypercapnia; J44.9 Chronic obstructive pulmonary disease, unspecified; F31.9 Bipolar disorder, unspecified; E03.9 Hypothyroidism, unspecified; K21.9 Gastro-esophageal reflux disease without esophagitis; E55.9 Vitamin D deficiency, unspecified; Z86.73 Personal history of transient ischemic attack (TIA), and cerebral infarction without residual deficits; I11.0 Hypertensive heart disease with heart failure; I50.9 Heart failure, unspecified
CPT/HCPCS: 96361; 93005; 93306; 87088; 85025 ×2; 80048; 36415 ×2; 86900; 83735; 86850; 82550; 85610; 86901; 80076; 83605; 82652; 84443; 81003; 84484; 82553; 82607; 83690; 84145; 82306; 83880; 71275; 74175; 71045; 97116; 97161; 97530; 96375; 96374; 99285; Q9967; J1940; C9113; J0696; J7030; G0378 ×3; 87086

== ENCOUNTER 2022-03-25 14:36 | Observation (INO) | payer OTHER ==
[2022-03-25] MEDS ORDERED: NITROGLYCERIN 1 GM PKT TD ONE (15:09)
[2022-03-25] MEDS ORDERED: FUROSEMIDE 40 MG/4 ML VIAL ONE (15:09)
[2022-03-25] MEDS ORDERED: LEVALBUTEROL 1.25 MG/3 ML NEB ONE ×2 (15:09→17:31)
[2022-03-25 15:21] LABS: MPV 8.8 fL (7.6-11.3); RBC Red Blood Cell Count 3.93 M/uL (3.86-4.86)
[2022-03-25 15:22] LABS: Absolute Lymphocytes (CBC) 1.9 K/uL (0.7-4.9); Lymphocytes % 16.8 % (15.3-44.8)
[2022-03-25 15:26] LABS: Protime INR 1.03
[2022-03-25 15:43] LABS: Potassium 3.8 mmol/L (3.5-5.1)
[2022-03-25 15:44] LABS: Albumin 3.4 g/dL (3.4-5.0); Bilirubin Direct 0.2 mg/dL (0-0.2); Bilirubin Total 0.6 mg/dL (0.2-1.0); Protein, Total 7.1 g/dL (6.4-8.2)
--- NOTE | 2022-03-25 16:29 | RAD REPORT ---
EXAM DESCRIPTION: [place] Single View03/25/2022 4:03 pm CLINICAL HISTORY: Chest pain COMPARISON: 2019 FINDINGS: Mild bilateral pulmonary opacities. The heart is mildly to moderately enlarged IMPRESSION: Mild bilateral pulmonary opacities may indicate pneumonitis or pneumonia
[2022-03-25 16:31] LABS: Troponin High Sensitivity 81.3 pg/mL (<58.9)
--- NOTE | 2022-03-25 16:47 | ER ---
Nurse's Notes [facility] Name: Breanne Montes De Oca Age: 76 yrs Sex: Female : 1945 Arrival Date: 03/25/2022 Time: 14:39 Bed 16 Private MD: Pavithra Hernandez C Diagnosis: Acute systolic (congestive) heart failure-volume overload;Chest pain, unspecified Presentation: 03/25 14:47 Chief complaint: Patient states: SHORTNESS OF BREATH AND RIGHT SIDE PAIN FOR SEVERAL [facility] DAYS. Coronavirus screen: Vaccine status: Patient reports receiving the 2nd dose of the covid vaccine. Client denies travel out of the [place] in the last 14 days. difficulty breathing, shortness of breath. Ebola Screen: Patient negative for fever greater than or equal to 101.5 degrees Fahrenheit, and additional compatible Ebola Virus Disease symptoms. Initial Sepsis Screen: Does the patient meet any 2 criteria? RR > 20 per min. Does the patient have a suspected source of infection? No. Patient's initial sepsis screen is negative. Risk Assessment: Do you want to hurt yourself or someone else? Patient reports no desire to harm self or others. Onset of symptoms is unknown. 14:47 Method Of Arrival: Wheelchair [facility] 14:47 Acuity: FIOR 3 [facility] Historical: - Allergies: 14:49 NKDA; 1 - Home Meds: 14:49 amlodipine 5 mg tab 1 tab once daily [Active]; gabapentin 100 mg Oral cap nightly bh1 [Active]; Klor-Con M20 20 mEq Oral cpER 1 tab once daily [Active]; Lasix 40 mg Oral tab 1 tab daily prn [Active]; Levoxyl 100 mcg Oral tab 1 tab once daily [Active]; metoprolol tartrate 50 mg Oral tab 1 tab 2 times per day [Active]; Pravachol 20 mg Oral tab nightly [Active]; ProAir HFA 90 mcg/actuation inhalation HFAA [Active]; trelegy elllipta 100-62.5-25 mcg 1 puff daily [Active]; Vesicare 5 mg Oral tab 1 tab once daily [Active]; - PMHx: 14:49 aortic aneurysm; Arthritis; Asthma; Bipolar disorder; Bronchitis; CHF; COPD; bh1 Hypertension; Hypothyroidism; Osteoporosis; Urinary incontinence; psoriasis; - Immunization history:: Adult Immunizations up to date. - Social history:: Smoking status: unknown. Screenin:55 Abuse screen: Denies threats or abuse. Nutritional screening: No deficits noted. vg1 Tuberculosis screening: No symptoms or risk factors identified. Fall Risk No fall in past 12 months (0 pts). No secondary diagnosis (0 pts). IV access (20 points). Ambulatory Aid- Crutches/Cane/Walker (15 pts). Gait- Impaired (20 pts.). Mental Status- Total Mcghee Fall Scale indicates High Risk Score (45 or more points). Fall prevention measures have been instituted. Side Rails Up X 2 Placed Close to Nursing Station Family Present and informed to notify staff if the need to leave the bedside As available patient and family educated on Fall Prevention Program and Strategies. Assessment: 14:55 General: Appears uncomfortable, Behavior is calm, cooperative. Pain: Complains of pain vg1 in right lateral anterior chest Pain does not radiate. Pain currently is 7 out of 10 on a pain scale. Pain began x 4 days. Neuro: Level of Consciousness is awake, alert, obeys commands, Oriented to person, place, time, situation. Cardiovascular: Reports chest pain, shortness of breath, Patient's skin is warm and dry. Respiratory: Airway is patent Respiratory effort is even, labored, Respiratory pattern is tachypnea Breath sounds with wheezes bilaterally. GI: No signs and/or symptoms were reported involving the gastrointestinal system. : No signs and/or symptoms were reported regarding the genitourinary system. EENT: No signs and/or symptoms were reported regarding the EENT system. Derm: Skin is intact, is healthy with good turgor. Musculoskeletal: Swelling present in right foot, left foot, right leg and left leg. 15:55 Reassessment: Patient appears in no apparent distress at this time. No changes from vg1 previously documented assessment. Patient and/or family updated on plan of care and expected duration. Pain level reassessed. Patient is alert, oriented x 3, equal unlabored respirations, skin warm/dry/pink. Patient denies pain at this time. 17:00 Reassessment: Patient appears in no apparent distress at this time. Patient and/or vg1 family updated on plan of care and expected duration. Pain level reassessed. Patient is alert, oriented x 3, equal unlabored respirations, skin warm/dry/pink. 17:19 Reassessment: pt c/o difficulty breathing; received VO from [place] VERNON to administer vg1 Xopenex 1.25 mg x1. 18:00 Reassessment: Patient appears in no apparent distress at this time. Patient and/or vg1 family updated on plan of care and expected duration. Pain level reassessed. Patient is alert, oriented x 3, equal unlabored respirations, skin warm/dry/pink. Patient denies pain at this time. Patient states feeling better. 20:31 Reassessment: Patient and/or family updated on plan of care and expected duration. Pain vc1 level reassessed. Patient is alert, oriented x 3, equal unlabored respirations, skin warm/dry/pink. Patient denies pain at this time. Patient states feeling better. Patient states symptoms have improved. Vital Signs: 14:47 BP 145 / 113; Pulse 64; Resp 26; Pulse Ox 93% on 2 lpm NC; Weight 104.33 kg (R); Height bh1 5 ft. 2 in. (157.48 cm); 15:34 BP 158 / 61; Pulse 73; Resp 20; Pulse Ox 94% on 2 lpm NC; vg1 16:00 BP 130 / 69; Pulse 64; Resp 18; Temp 98.6(O); Pulse Ox 96% on 2 lpm NC; vg1 16:20 BP 187 / 154; Pulse 68; Resp 21; Pulse Ox 93% on 2 lpm NC; vg1 16:23 BP 176 / 73; Pulse 69; Resp 22; Pulse Ox 98% on 2 lpm NC; vg1 16:40 BP 128 / 61; Pulse 72; Resp 21; Pulse Ox 95% on 2 lpm NC; vg1 17:00 BP 122 / 90; Pulse 68; Resp 17; Pulse Ox 94% on 2 lpm NC; vg1 18:00 BP 153 / 86; Pulse 88; Resp 18; Pulse Ox 95% on 2 lpm NC; vg1 19:37 BP 158 / 63; Pulse 78; Resp 21; Pulse Ox 97% on 2 lpm NC; vc1 20:32 BP 161 / 92; Pulse 86; Resp 25; Pulse Ox 96% on 2 lpm NC; vc1 14:47 Body Mass Index 42.07 (104.33 kg, 157.48 cm) [facility] ED Course: 14:39 Patient arrived in ED. am2 14:39 Pavithra Hernandez FNP is Private Physician. am2 14:42 [facility] pm1 14:42 Tim Flannery MD is Attending Physician. pm1 14:49 Triage completed. bh1 14:50 Arm band placed on left wrist. 1 14:52 Anne Montoya RN is Primary Nurse. 1 14:52 Initial lab(s) drawn, by la, sent to lab. Inserted saline lock: 20 gauge in left vg1 antecubital area, using aseptic technique. Blood collected. Oxygen administration via nasal cannula \T\ 2L/min. 14:55 Patient has correct armband on for positive identification. Placed in gown. Bed in low vg1 position. Call light in reach. Side rails up X2. Adult w/ patient. Client placed on continuous cardiac and pulse oximetry monitoring. NIBP monitoring applied. 16:04 XRAY Chest (1 view) In Process Unspecified. EDMS 16:46 Zeeshan Busch MD is Hospitalizing Provider. pm1 19:15 Primary Nurse role handed off by Anne Montoya RN mw2 19:37 Jennifer Carey RN is Primary Nurse. vc1 20:41 No provider procedures requiring assistance completed. Patient admitted, IV remains in vc1 place. Administered Medications: 14:58 Not Given (Physician Discretion): Albuterol 2.5 mg Inhalation once pm1 15:08 Drug: Xopenex (levalbuterol) 1.25 mg Route: Inhalation; vg1 16:23 Follow up: Response: No adverse reaction; No change in condition vg1 15:09 Drug: Nitroglycerin Ointment 2 % 1 inches Route: Transdermal; Site: anterior chest wall;vg1 16:23 Follow up: Response: No adverse reaction; Marked relief of symptoms vg1 15:10 Drug: Lasix (furosemide) 40 mg Route: IVP; Site: right antecubital; vg1 16:25 Follow up: Response: No adverse reaction; Marked relief of symptoms vg1 17:27 Drug: Xopenex (levalbuterol) 1.25 mg Route: Inhalation; vg1 Medication: 14:55 VIS not applicable for this client. vg1 Intake: 18:00 per [employer] Managerwick vg1 Output: 18:00 Urine: 550ml (Voided); Total: 550ml. vg1 18:00 per purewick vg1 Outcome: 16:46 Decision to Hospitalize by Provider. pm1 20:42 Instructed on the need for admit. vc1 20:59 Admitted to Med/surg accompanied by tech, via stretcher, room 206, Report called to vc1 RIGOBERTO Perry 20:59 Condition: good 21:06 Patient left the ED. vc1 Signatures: Dispatcher [employer] EDMS Angus Rolon, DOZER OPERATOR DOZER OPERATOR pm1 Martha Anaya am2 Audrey Childers mw2 Anne Montoya, RN RN vg1 Jennifer Carey RN RN vc1 Rosalba Rolon, RN RN 1 Corrections: (The following items were deleted from the chart) 16:25 15:55 Reassessment: Patient appears in no apparent distress at this time. No changes vg1 from previously documented assessment. Patient and/or family updated on plan of care and expected duration. Pain level reassessed. Patient is alert, oriented x 3, equal unlabored respirations, skin warm/dry/pink. vg1 16:30 16:22 BP 130 / 69; Pulse 64bpm; Resp 18bpm; Pulse Ox 96% 2 lpm Nasal Cannula; Temp vg1 98.6F Oral; vg1
--- NOTE | 2022-03-25 16:48 | EDPHYS ---
Physician Documentation [facility] Name: Breanne Montes De Oca Age: 76 yrs Sex: Female : 1945 Arrival Date: 03/25/2022 Time: 14:39 Bed 16 Private MD: Pavithra Hernandez C ED Physician Tim Flannery HPI: 03/25 14:52 This 76 yrs old Female presents to ER via Wheelchair with complaints of Chest Pain. pm1 14:52 The patient or guardian reports chest pain that is located primarily in the anterior pm1 chest wall, right lower, right breast. Onset: this morning, patient with shortness of breath and lower extremity swelling for 4 days. The pain does not radiate. Associated signs and symptoms: Pertinent negatives: abdominal pain, nausea, vomiting, fever. The chest pain is described as sharp. Duration: The patient or guardian reports a single episode, that is still ongoing. Modifying factors: The symptoms are alleviated by nothing. the symptoms are aggravated by nothing. Severity of pain: in the emergency department the pain is actually worse. The patient has not recently seen a physician. 76-year-old patient presents to the ER with complaints of chest pain. Chest pain onset this morning. Patient with shortness of breath and swelling to lower extremities for the past 4 days. Patient with standing home order for additional Lasix as needed for swelling. Patient doubled her dosage of Lasix for the past 3 days and has improvement in swelling to her legs however shortness of breath has persisted along with chest pain that started this morning. Chest pain described as sharp to her right lower chest area. Historical: - Allergies: 14:49 NKDA; bh1 - Home Meds: 14:49 amlodipine 5 mg tab 1 tab once daily [Active]; gabapentin 100 mg Oral cap nightly bh1 [Active]; Klor-Con M20 20 mEq Oral cpER 1 tab once daily [Active]; Lasix 40 mg Oral tab 1 tab daily prn [Active]; Levoxyl 100 mcg Oral tab 1 tab once daily [Active]; metoprolol tartrate 50 mg Oral tab 1 tab 2 times per day [Active]; Pravachol 20 mg Oral tab nightly [Active]; ProAir HFA 90 mcg/actuation inhalation HFAA [Active]; trelegy elllipta 100-62.5-25 mcg 1 puff daily [Active]; Vesicare 5 mg Oral tab 1 tab once daily [Active]; - PMHx: 14:49 aortic aneurysm; Arthritis; Asthma; Bipolar disorder; Bronchitis; CHF; COPD; bh1 Hypertension; Hypothyroidism; Osteoporosis; Urinary incontinence; psoriasis; - Immunization history:: Adult Immunizations up to date. - Social history:: Smoking status: unknown. ROS: 14:52 Constitutional: Negative for fever, chills, and weight loss. pm1 14:52 Abdomen/GI: Negative for abdominal pain, nausea, vomiting, diarrhea, and constipation, Back: Negative for injury and pain, MS/Extremity: Negative for injury and deformity, Skin: Negative for injury, rash, and discoloration, Neuro: Negative for headache, weakness, numbness, tingling, and seizure. 14:52 Cardiovascular: Positive for chest pain, edema. 14:52 Respiratory: Positive for shortness of breath. 14:52 All other systems are negative. Exam: 14:52 Constitutional: This is a well developed, well nourished patient who is awake, alert, pm1 and in no acute distress. Head/Face: Normocephalic, atraumatic. 14:52 Back: No spinal tenderness. No costovertebral tenderness. Full range of motion. Skin: Warm, dry with normal turgor. Normal color with no rashes, no lesions, and no evidence of cellulitis. MS/ Extremity: Pulses equal, no cyanosis. Neurovascular intact. Full, normal range of motion. 14:52 Eyes: Exam is negative for acute changes, Extraocular movements: intact throughout, Conjunctiva: no acute changes, no injection. 14:52 ENT: Exam is negative for acute changes, Mouth: no acute changes, Lips: normal, moist, Oral mucosa: normal, pink and intact, moist. 14:52 Chest/axilla: Inspection: no acute changes, Palpation: tenderness, that is mild, that totally reproduces the patient's complaints. 14:52 Cardiovascular: Exam negative for acute changes, Rate: normal, Rhythm: regular, Pulses: no pulse deficits are appreciated, Heart sounds: normal, normal S1and S2, Edema: 1+ edema to level of left midcalf, left ankle, right midcalf and right ankle. 14:52 Respiratory: the patient does not display signs of respiratory distress, Respirations: normal, Breath sounds: wheezing: expiratory that is mild. 14:52 Abdomen/GI: Inspection: obese Palpation: abdomen is soft and non-tender, in all quadrants. 14:52 Neuro: Exam negative for acute changes, Orientation: is normal, Mentation: is normal, Motor: is normal, moves all fours. Vital Signs: 14:47 BP 145 / 113; Pulse 64; Resp 26; Pulse Ox 93% on 2 lpm NC; Weight 104.33 kg (R); Height bh1 5 ft. 2 in. (157.48 cm); 15:34 BP 158 / 61; Pulse 73; Resp 20; Pulse Ox 94% on 2 lpm NC; vg1 16:00 BP 130 / 69; Pulse 64; Resp 18; Temp 98.6(O); Pulse Ox 96% on 2 lpm NC; vg1 16:20 BP 187 / 154; Pulse 68; Resp 21; Pulse Ox 93% on 2 lpm NC; vg1 16:23 BP 176 / 73; Pulse 69; Resp 22; Pulse Ox 98% on 2 lpm NC; vg1 16:40 BP 128 / 61; Pulse 72; Resp 21; Pulse Ox 95% on 2 lpm NC; vg1 17:00 BP 122 / 90; Pulse 68; Resp 17; Pulse Ox 94% on 2 lpm NC; vg1 18:00 BP 153 / 86; Pulse 88; Resp 18; Pulse Ox 95% on 2 lpm NC; vg1 19:37 BP 158 / 63; Pulse 78; Resp 21; Pulse Ox 97% on 2 lpm NC; vc1 20:32 BP 161 / 92; Pulse 86; Resp 25; Pulse Ox 96% on 2 lpm NC; vc1 14:47 Body Mass Index 42.07 (104.33 kg, 157.48 cm) bh1 MDM: 14:43 Patient medically screened. pm1 15:31 ED course: Patient's chest pain resolved and shortness of breath returned to her pm1 baseline. Medications effective in treatment of her symptoms in the ER. 16:34 Counseling: I had a detailed discussion with the patient and/or guardian regarding: the pm1 historical points, exam findings, and any diagnostic results supporting the discharge/admit diagnosis, lab results, radiology results, the need for further work-up and treatment in the hospital. 16:42 Data reviewed: vital signs. Data interpreted: Pulse oximetry: on room air is 98 %. pm1 Interpretation: normal. 16:42 Physician consultation: Zeeshan Busch MD was contacted at 16:42, regarding admission, pm1 patient's condition, and will see patient in ED, Discussed chest x-ray result and patient presentation, clinical impression is CHF exacerbation with volume overload. Clinical presentation is not pneumonia, no fever or cough along with complaints of edema for the past 3-4 days, so I did not treat the patient with antibiotics initially. Dr. Buschl with see the patient and determine if she will need antibiotics. 17:21 Physician consultation: Zeeshan Busch MD in the emergency department to see patient pm1 at 17:21, He agrees with clinical impression. CHF exacerbation. He does not believe pneumonia is present either, therefore no antibiotic therapy. His plan is diuresis and discharge tomorrow morning, therefore I will change her to observation. . 03/25 14:52 Order name: Basic Metabolic Panel; Complete Time: 16:34 pm1 03/25 14:52 Order name: CBC with Diff; Complete Time: 15:49 pm03/25 14:52 Order name: LFT's; Complete Time: 16:34 pm1 03/25 14:52 Order name: Magnesium; Complete Time: 16:34 pm03/25 14:52 Order name: NT PRO-BNP; Complete Time: 16:34 pm03/25 14:52 Order name: PT-INR; Complete Time: 15:28 pm1 03/25 14:52 Order name: Troponin HS; Complete Time: 16:34 pm1 03/25 14:52 Order name: XRAY Chest (1 view); Complete Time: 16:34 pm03/25 15:53 Order name: COVID-19 SARS RT PCR (Document "Date of Onset" if Symptomatic); Complete pm1 Time: 18:22 03/25 17:21 Order name: CBC with Automated Diff EDMS 03/25 17:21 Order name: CBC with Automated Diff EDMS 03/25 17:21 Order name: Comprehensive Metabolic Panel EDMS 03/25 17:21 Order name: Comprehensive Metabolic Panel EDMS 03/25 14:52 Order name: EKG; Complete Time: 14:53 pm1 03/25 14:52 Order name: Cardiac monitoring; Complete Time: 14:59 pm1 03/25 14:52 Order name: EKG - Nurse/Tech; Complete Time: 14:59 pm1 03/25 14:52 Order name: IV Saline Lock; Complete Time: 14:54 pm1 03/25 14:52 Order name: Labs collected and sent; Complete Time: 14:54 pm1 03/25 14:52 Order name: O2 Per Protocol; Complete Time: 14:54 pm1 03/25 14:52 Order name: O2 Sat Monitoring; Complete Time: 14:54 pm1 03/25 17:21 Order name: Heart Healthy EDMS Administered Medications: 14:58 Not Given (Physician Discretion): Albuterol 2.5 mg Inhalation once pm1 15:08 Drug: Xopenex (levalbuterol) 1.25 mg Route: Inhalation; vg1 16:23 Follow up: Response: No adverse reaction; No change in condition vg1 15:09 Drug: Nitroglycerin Ointment 2 % 1 inches Route: Transdermal; Site: anterior chest wall;vg1 16:23 Follow up: Response: No adverse reaction; Marked relief of symptoms vg1 15:10 Drug: Lasix (furosemide) 40 mg Route: IVP; Site: right antecubital; vg1 16:25 Follow up: Response: No adverse reaction; Marked relief of symptoms vg1 17:27 Drug: Xopenex (levalbuterol) 1.25 mg Route: Inhalation; vg1 Disposition: 03/26 08:25 Co-signature as Attending Physician, Tim Flannery MD. rn Disposition Summary: 03/25/22 16:46 Hospitalization Ordered Provider: Zeeshan Busch pm1 Condition: Stable pm1 Problem: new pm1 Symptoms: have improved pm1 Bed/Room Type: Standard pm1 Hospitalization Status: Observation(03/25/22 17:21) pm1 Location: Telemetry/MedSurg (observation)(03/25/22 17:21) pm1 Room Assignment: [facility](03/25/22 20:25) Diagnosis - Acute systolic (congestive) heart failure - volume overload pm1 - Chest pain, unspecified pm1 Forms: - Medication Reconciliation Form pm1 - SBAR form pm1 Signatures: Dispatcher [employer] EDMS Tim Flannery MD MD rn Garcia, Cindy, RN RN cg Marinas, Patrick, NP TECHNOLOGY ANALYST pm1 Anne Montoya RN RN vg1 Rosalba Rolon RN RN bh1 Corrections: (The following items were deleted from the chart) 03/25 17: 16:46 Inpatient Admission pm1 pm1 17: 16:46 Telemetry/MedSurg (Inpatient) pm1 pm1 17: 16:46 pm1 pm1 20:25 17: pm1 cg
--- NOTE | 2022-03-25 17:19 | P.HP ---
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 does not smoke denies any fever or chills Allergies No Known Drug Allergies Allergy (Verified 09/22/19 17:26) Unknown Home Medications: Divalproex Sodium [Depakote] 500 mg PO BID 11/27/14 Loratadine [Claritin*] 10 mg PO DAILY 11/27/14 Pravastatin Sodium [Pravachol] 20 mg PO DAILY 11/27/14 Metoprolol Succinate [Toprol Xl*] 50 mg PO DAILY #30 tab 11/30/14 Omeprazole [Prilosec] 40 mg PO DAILY 05/25/15 Amlodipine [Norvasc*] 5 mg PO DAILY 06/11/18 Levothyroxine Sodium [Levoxyl] 100 mcg PO [id number] 06/11/18 Losartan Potassium [Cozaar*] 50 mg PO DAILY 06/11/18 Albuterol Sulfate [Proair Hfa] 1 - 2 puff IH Q4HP PRN 09/22/19 Fluticasone/Umeclidin/Vilanter [Trelegy Ellipta 100-62.5-25] 1 puff IH DAILY 09/22/19 Solifenacin Succinate 1 tab PO DAILY 09/22/19 Cholecalciferol (Vitamin D3) [Children's Vitamin D3] 1,000 unit PO DAILY #30 tab.chew 09/23/19 Ergocalciferol (Vitamin D2) [Drisdol] 50,000 unit PO EVERY 7TH DAY #8 capsule 09/23/19 Furosemide [Lasix] 40 mg PO DAILY #30 tab 03/26/22 Spironolactone [Aldactone*] 25 mg PO BID #60 tab 03/26/22 - Past Medical/Surgical History Diabetic: No -: COPD -: HTN -: BRONCHITIS -: EMPHYSEMA -: HLD -: BIPOLAR DISORDER -: CLAUSTROPHOBIA -: SLEEP APNEA -: HYPOTHYROIDISM -: GERD -: CHF -: Arthritis -: APPY -: LILI - Family History Mother -: Heart disease, Lung disease Father -: Cancer Brother -: Lung disease, Cancer Sister -: Lung disease, Cancer Notes: Melanoma - Social History Alcohol use: No CD- Drugs: No Caffeine use: Yes Review of Systems 10-point ROS is otherwise unremarkable Physical Examination - Vital Signs Temperature: 97.3 F Blood Pressure: 146/65 Pulse: 71 Respirations: 17 Pulse Ox (%): 96 (2l) - Physical Exam General: Alert, In no apparent distress, Oriented x3 Respiratory: Crackles/rales (At the bases) Cardiovascular: Regular rate/rhythm, Other (Jugular venous distention), Edema (2 + edema) Gastrointestinal: Normal bowel sounds, Soft and benign Musculoskeletal: No clubbing - Studies Laboratory Data (last 24 hrs) 03/25/22 14:52: PT 11.3, INR 1.03 03/25/22 14:52: WBC 11.2 H, Hgb 12.3, Hct 37.0, Plt Count 345 03/25/22 14:52: Sodium 140, Potassium 3.8, BUN 15, Creatinine 1.10, Glucose 120 H, Magnesium 2.0, Total Bilirubin 0.6, AST 13 L, ALT 21, Alkaline Phosphatase 120 H Assessment and Plan - Problems (Diagnosis) (1) CHF exacerbation Current Visit: Yes Status: Acute Plan: Patient is 76 years of age admitted with the worsening shortness of breath for the past 3 days lower extremity edema orthopnea mornings BNP are all elevated consistent with congestive heart failure aggressive diuresis spironolactone Lasix labs all reviewed chest x-ray shows some interstitial changes consistent with CHF so has a history of obstructive airways disease does use bronchodilators for now stable discharge in a.m. add spironolactone to her medications last echogram echocardiogram done in 2019 shows left ventricular hypertrophy I suspect that she has diastolic failure Qualifiers: Heart failure type: diastolic Qualified Code(s): I50.33 - Acute on chronic diastolic (congestive) heart failure Discharge Plan: Home Plan to discharge in: 24 Hours - Advance Directives Does patient have a Living Will: No Does patient have a Durable POA for Healthcare: No
[2022-03-25] MEDS: IPRATROPIUM BROM 0.5MG/2.5ML NEB SCH (19:20)
[2022-03-25] MEDS ORDERED: IPRATROPIUM BROM 0.5MG/2.5ML ONE (19:29)
[2022-03-25] MEDS: SPIRONOLACTONE 25 MG TABLET PO SCH (21:38)
[2022-03-25] MEDS: FUROSEMIDE 40 MG/4 ML VIAL IV SCH (21:39)
[2022-03-25 22:32] VITALS: BMI 42.0
[2022-03-26 00:32] VITALS: TEMP 97.3
[2022-03-26] MEDS: IPRATROPIUM BROM 0.5MG/2.5ML NEB SCH ×2 (01:35→07:42)
[2022-03-26 03:51] LABS: Absolute Lymphocytes (CBC) 2.6 K/uL (0.7-4.9); Hematocrit 32.8 % (36.0-45.0); Lymphocytes % 27.8 % (15.3-44.8); MCV 94.4 fL (80-100); MPV 8.5 fL (7.6-11.3); RBC Red Blood Cell Count 3.48 M/uL (3.86-4.86)
[2022-03-26 04:13] LABS: Albumin 2.9 g/dL (3.4-5.0); Bilirubin Total 0.6 mg/dL (0.2-1.0); Potassium 3.6 mmol/L (3.5-5.1); Protein, Total 6.4 g/dL (6.4-8.2)
--- NOTE | 2022-03-26 08:04 | P.DS ---
Admission Date: 03/25/22 Discharge Date: 03/26/22 Disposition: ROUTINE DISCHARGE Discharge Condition: GOOD Reason for Admission: Exacerbation shortness of breath - Problems (1) CHF exacerbation Current Visit: Yes Status: Acute Qualifiers: Heart failure type: diastolic Qualified Code(s): I50.33 - Acute on chronic diastolic (congestive) heart failure Brief History of Present Illness: Patient is 76 years of age with a history of congestive heart failure she has been sick for about a week complaining of progressive lower extremity edema right-sided chest discomfort shortness of breath compliant with Lasix at home which she takes twice a day has home oxygen and COPD follows up with a cardio logist does not smoke denies any fever or chills Hospital Course: Patient is 76 years of age admitted with congestive heart failure she did much better on spironolactone time of discharge no complaints shortness of breath is improved I change her over to spironolactone twice a day Lasix 20 to 40 mg daily as needed DC potassium patient has oxygen at home labs reviewed to follow-up with her card room manager or primary care doctor also instructed to weigh herself every day if weight gain more than 2 pounds to take 20 to 40 mg of Lasix Vital Signs/Physical Exam: Temp Pulse Resp BP Pulse Ox 97.3 F 71 17 146/65 H 96 03/26/22 08:02 03/26/22 08:02 03/26/22 08:02 03/26/22 08:02 03/26/22 08:02 Laboratory Data at Discharge: WBC 9.2 K/uL (4.3-10.9) D 03/26/22 03:15 Hgb 11.3 g/dL (12.0-15.0) L 03/26/22 03:15 Hct 32.8 % (36.0-45.0) L 03/26/22 03:15 Plt Count 300 K/uL (152-406) 03/26/22 03:15 PT 11.3 SECONDS (9.5-12.5) 03/25/22 14:52 INR 1.03 03/25/22 14:52 Sodium 138 mmol/L (136-145) 03/26/22 03:15 Potassium 3.6 mmol/L (3.5-5.1) 03/26/22 03:15 BUN 17 mg/dL (7-18) 03/26/22 03:15 Creatinine 0.87 mg/dL (0.55-1.3) 03/26/22 03:15 Glucose 95 mg/dL (74-106) 03/26/22 03:15 Magnesium 2.0 mg/dL (1.8-2.4) 03/25/22 14:52 Total Bilirubin 0.6 mg/dL (0.2-1.0) 03/26/22 03:15 AST 19 U/L (15-37) 03/26/22 03:15 ALT 16 U/L (12-78) 03/26/22 03:15 Alkaline Phosphatase 105 U/L (45-117) 03/26/22 03:15 Home Medications: Divalproex Sodium [Depakote] 500 mg PO BID 11/27/14 Loratadine [Claritin*] 10 mg PO DAILY 11/27/14 Pravastatin Sodium [Pravachol] 20 mg PO DAILY 11/27/14 Metoprolol Succinate [Toprol Xl*] 50 mg PO DAILY #30 tab 11/30/14 Omeprazole [Prilosec] 40 mg PO DAILY 05/25/15 Amlodipine [Norvasc*] 5 mg PO DAILY 06/11/18 Levothyroxine Sodium [Levoxyl] 100 mcg PO [id number] 06/11/18 Losartan Potassium [Cozaar*] 50 mg PO DAILY 06/11/18 Albuterol Sulfate [Proair Hfa] 1 - 2 puff IH Q4HP PRN 09/22/19 Fluticasone/Umeclidin/Vilanter [Trelegy Ellipta 100-62.5-25] 1 puff IH DAILY 09/22/19 Solifenacin Succinate 1 tab PO DAILY 09/22/19 Cholecalciferol (Vitamin D3) [Children's Vitamin D3] 1,000 unit PO DAILY #30 tab.chew 09/23/19 Ergocalciferol (Vitamin D2) [Drisdol] 50,000 unit PO EVERY 7TH DAY #8 capsule 09/23/19 Furosemide [Lasix] 40 mg PO DAILY #30 tab 03/26/22 Spironolactone [Aldactone*] 25 mg PO BID #60 tab 03/26/22 New Medications: Spironolactone [Aldactone*] 25 mg PO BID #60 tab Furosemide [Lasix] 40 mg PO DAILY #30 tab Physician Discharge Instructions: Patient to take spironolactone to 25 mg twice a day prescription faxed to the pharmacy Use Lasix 40 mg now as needed basis for weight gain of 2 pounds/patient to weigh herself daily Discontinue potassium Diet: Low sodium Followup: RAMAKRISHNA LAGUNA [Primary Care Provider] -
[2022-03-26] MEDS ORDERED: AMLODIPINE 5 MG TAB PO SCH (09:00)
[2022-03-26] MEDS ORDERED: METOPROLOL XL 50 MG TAB PO SCH (09:00)
[2022-03-26] MEDS: SPIRONOLACTONE 25 MG TABLET PO SCH (09:35)
[2022-03-26 09:36] VITALS: BP 146/75
[2022-03-26] MEDS: FUROSEMIDE 40 MG/4 ML VIAL IV SCH (09:36)
[2022-03-26 21:01] VITALS: O2SAT 94
--- NOTE | 2022-03-27 13:50 | EKG ---
Test Date: 2022-03-25 Test Time: 14:55:51 Senior Credit Officer: TP MEASUREMENT RESULTS: Intervals: Rate: 73 DE: QRSD: 78 QT: 416 QTc: 458 [place]: P: DE: QRS: 24 T: 68 INTERPRETIVE STATEMENTS: Atrial fibrillation Nonspecific T wave abnormality, probably digitalis effect Abnormal ECG Compared to ECG 09/22/2019 14:37:57 T-wave abnormality now present Sinus rhythm no longer present ST (T wave) deviation no longer present Electronically Signed On 03-27-22 13:47:10 CDT by Davy Flores
== END 2022-03-26 12:20 | disposition home or self-care (01) ==
LOC: ER 14:36 → ERHOLD 17:17 → 2ND 20:41
PROVIDERS: ADMIT Internal Medicine Sleep Medicine; ATTEND Internal Medicine Sleep Medicine
DX: I11.0 Hypertensive heart disease with heart failure (principal); I50.33 Acute on chronic diastolic (congestive) heart failure; J44.9 Chronic obstructive pulmonary disease, unspecified; Z99.81 Dependence on supplemental oxygen; G47.30 Sleep apnea, unspecified; E03.9 Hypothyroidism, unspecified; K21.9 Gastro-esophageal reflux disease without esophagitis; M19.90 Unspecified osteoarthritis, unspecified site; E78.5 Hyperlipidemia, unspecified; F40.240 Claustrophobia; F31.9 Bipolar disorder, unspecified; Z20.822 Contact with and (suspected) exposure to COVID-19; Z79.899 Other long term (current) drug therapy; Z90.49 Acquired absence of other specified parts of digestive tract; Z83.6 Family history of other diseases of the respiratory system; Z82.49 Family history of ischemic heart disease and other diseases of the circulatory system; Z80.8 Family history of malignant neoplasm of other organs or systems
CPT/HCPCS: 36415; 71045; 80048; 80053; 80076; 82947; 83735; 83880; 84484; 85025; 85610; 93005; 96374; 99285; G0378; J1940; U0003

== ENCOUNTER 2022-04-06 10:47 | Inpatient (IN) | payer OTHER ==
[2022-04-06] MEDS ORDERED: ASPIRIN 81 MG CHEWABLE TABLET ONE (11:36)
[2022-04-06] MEDS ORDERED: NITROGLYCERIN 0.4 MG/TAB SL ONE (11:36)
[2022-04-06] MEDS ORDERED: FUROSEMIDE 40 MG/4 ML VIAL ONE (11:36)
[2022-04-06 11:38] LABS: Protime INR 0.96
[2022-04-06 12:01] LABS: Troponin High Sensitivity 26.1 pg/mL (<58.9)
--- NOTE | 2022-04-06 12:34 | RAD REPORT ---
EXAM DESCRIPTION: RAD - Chest Single View - 04/06/2022 12:28 pm CLINICAL HISTORY: DYSPNEA Chest pain. COMPARISON: Chest Single View dated 03/25/2022; Chest Single View dated 09/22/2019; CHEST SINGLE VIEW da maria c 05/25/2015; CHEST SINGLE VIEW dated 05/24/2015 FINDINGS: Portable technique limits examination quality. Mild interstitial pulmonary edema seen. Moderate patchy opacity in the right lung base is noted proba moses representing superimposed pneumonia. The heart is moderately enlarged. No displaced fractures. IMPRESSION: Mild CHF with superimposed right lung base pneumonia suspected.
--- NOTE | 2022-04-06 12:39 | ER ---
Nurse's Notes [facility] Name: Breanne Montes De Oca Age: 76 yrs Sex: Female : 1945 Arrival Date: 04/06/2022 Time: 10:50 Bed 17 Private MD: RAMAKRISHNA LAGUNA Diagnosis: Systolic (congestive) heart failure Presentation: 04/06 10:55 Chief complaint: Patient states: Chest pain \T\ SOB X 4 days. Upon arrival to ER pt SpO2 ld1 93% on 2L NC. Cough X 4 days. Coronavirus screen: At this time, the client does not indicate any symptoms associated with coronavirus-19. Ebola Screen: No symptoms or risks identified at this time. Initial Sepsis Screen: Does the patient meet any 2 criteria? No. Patient's initial sepsis screen is negative. Does the patient have a suspected source of infection? No. Patient's initial sepsis screen is negative. Risk Assessment: Do you want to hurt yourself or someone else? Patient reports no desire to harm self or others. Onset of symptoms was April 06, 2022. 10:55 Method Of Arrival: Ambulatory ld1 10:55 Acuity: FIOR 3 ld1 Triage Assessment: 10:57 General: Appears in no apparent distress. comfortable, Behavior is calm, cooperative, ld1 appropriate for age. Pain: Complains of pain in chest Pain does not radiate. Pain currently is 9 out of 10 on a pain scale. EENT: No signs and/or symptoms were reported regarding the EENT system. Neuro: Level of Consciousness is awake, alert, obeys commands, Oriented to person, place, time, situation. Cardiovascular: Capillary refill < 3 seconds Patient's skin is warm and dry. Rhythm is regular. Respiratory: Reports shortness of breath at rest on exertion Airway is patent Respiratory effort is even, unlabored, Onset: The symptoms/episode began/occurred 4 days, the patient has mild shortness of breath. GI: Abdomen is round non-distended. Historical: - Allergies: 10:57 NKDA; ld1 - PMHx: 10:57 aortic aneurysm; Bipolar disorder; Arthritis; Asthma; COPD; Hypothyroidism; Bronchitis; ld1 CHF; Hypertension; Osteoporosis; psoriasis; Urinary incontinence; - PSHx: 10:57 Appendectomy; Cholecystectomy; ld1 - Immunization history:: Adult Immunizations up to date, Client reports receiving the 2nd dose of the Covid vaccine. - Social history:: Smoking status: Patient denies any tobacco usage or history of. Patient/guardian denies using alcohol. Screenin:36 Abuse screen: Denies threats or abuse. Nutritional screening: No deficits noted. ll1 Tuberculosis screening: No symptoms or risk factors identified. Fall Risk Total Mcghee Fall Scale indicates No Risk (0-24 pts). Assessment: 11:42 Reassessment: No changes from previously documented assessment. Patient and/or family ll1 updated on plan of care and expected duration. Pain level reassessed. Patient is alert, oriented x 3, equal unlabored respirations, skin warm/dry/pink. 12:40 Visitor restriction implemented due to in-person visitations may lead to the ll1 transmission of an infectious agent. Restricted visitation is valid for not more than 5 days unless renewed by the attending provider. Reassessment: No changes from previously documented assessment. Patient and/or family updated on plan of care and expected duration. Pain level reassessed. 13:40 Reassessment: No changes from previously documented assessment. Patient and/or family ll1 updated on plan of care and expected duration. Pain level reassessed. Patient is alert, oriented x 3, equal unlabored respirations, skin warm/dry/pink. 14:36 Reassessment: No changes from previously documented assessment. Patient and/or family ll1 updated on plan of care and expected duration. Pain level reassessed. Patient is alert, oriented x 3, equal unlabored respirations, skin warm/dry/pink. 15:17 Cardiovascular:. Respiratory: Airway is patent Respiratory effort is even, kr3 15:57 :. kr3 Vital Signs: 10:55 BP 217 / 108; Pulse 99; Resp 22; Temp 97.9(TE); Pulse Ox 93% on 2 lpm NC; Weight 104.33 ld1 kg; Height 5 ft. 2 in. (157.48 cm); Pain 7/10; 13:13 BP 140 / 92; Pulse 63; Resp 18; Pulse Ox 97% on R/A; kr3 14:00 BP 147 / 38; Pulse 62; Resp 18; Pulse Ox 97% on R/A; ll1 15:19 BP 125 / 104; Pulse 62; Resp 18; Pulse Ox 96% on R/A; kr3 10:55 Body Mass Index 42.07 (104.33 kg, 157.48 cm) ld1 ED Course: 10:50 Patient arrived in ED. mr 10:50 MEREDITH LAGUNAI is Private Physician. mr 10:57 Triage completed. ld1 10:57 Arm band placed on right wrist. ld1 10:58 Frank Fernández MD is Attending Physician. sp3 11:00 Patient placed in an exam room, on a stretcher. kr3 11:05 Missed attempt(s): 22 gauge in right antecubital area. Bleeding controlled, band aid ll1 applied, catheter tip intact. 11:10 Inserted saline lock: 22 gauge in left antecubital area, using aseptic technique. Blood ll1 collected. 11:16 Maine Mathews, RN is Primary Nurse. kr3 11:33 EKG done, by ED staff, reviewed by Frank Fernández MD. jw7 12:29 XRAY Chest (1 view) In Process Unspecified. EDMS 12:38 Sean Perez MD is Hospitalizing Provider. sp3 13:05 purewick to low wall suction. kr3 13:58 COVID swab sent to lab. jw7 13:59 SARS RAPID Sent. jw7 14:18 First set of blood cultures drawn. kj1 14:36 Patient has correct armband on for positive identification. Bed in low position. Call ll1 light in reach. Side rails up X 1. Client placed on continuous cardiac and pulse oximetry monitoring. NIBP monitoring applied. traffic monitor specialist on. 14:45 Second set of blood cultures drawn by me. kj1 15:20 No provider procedures requiring assistance completed. Patient admitted, IV remains in kr3 place. Administered Medications: 11:35 Drug: Aspirin Chewable Tablet 324 mg Route: PO; ll1 15:22 Follow up: Response: No adverse reaction kr3 11:36 Drug: Nitroglycerin 0.4 mg Route: Sublingual; ll1 15:22 Follow up: Response: No adverse reaction kr3 11:37 Drug: Lasix (furosemide) 40 mg Route: IVP; Site: left antecubital; ll1 15:22 Follow up: Response: No adverse reaction kr3 Medication: 14:36 VIS not applicable for this client. ll1 Output: 15:58 Urine: 650ml (Voided); Total: 650ml. kr3 Outcome: 12:38 Decision to Hospitalize by Provider. sp3 15:20 Admitted to Med/surg via stretcher, Report called to Bertha RN kr3 15:20 Condition: stable 15:20 Instructed on the need for admit. 15:53 Patient left the ED. kr3 Signatures: Dispatcher [employer] EDKY Javier, Arminda Kelsey, Gi kj1 Marlyn Moses RN RN ll1 Susan Hoffman RN RN ld1 Frank Fernández MD MD sp3 Malorie Nguyen jw7 Maine Mathews RN RN kr3 Corrections: (The following items were deleted from the chart) 10:58 10:57 PSHx: None; ld1 ld1 10:59 10:55 Chief complaint: Patient states: Chest pain \T\ SOB X 4 days. Upon arrival to ER pt ld1 SpO2 93% on 2L NC. ld1
--- NOTE | 2022-04-06 12:39 | EDPHYS ---
Physician Documentation [facility] Name: Breanne Montes De Oca Age: 76 yrs Sex: Female : 1945 Arrival Date: 04/06/2022 Time: 10:50 Bed 17 Private MD: RAMAKRISHNA LAGUNA ED Physician Frank Fernández HPI: 04/06 11:03 This 76 yrs old Female presents to ER via Ambulatory with complaints of Breathing sp3 Difficulty. 11:03 76-year-old female with extensive past medical history including COPD and CHF presents sp3 with chief complaint shortness of breath "since they discharged me from the hospital". Patient states that she also has some mild chest pain associated with this. Her main complaint however is dyspnea. Denies headache, fever, changes in her medication abdominal pain, nausea, vomiting, diarrhea, increased salt intake, decreased urine output, or any other findings on ROS at this time.. Historical: - Allergies: 10:57 NKDA; ld1 - PMHx: 10:57 aortic aneurysm; Bipolar disorder; Arthritis; Asthma; COPD; Hypothyroidism; Bronchitis; ld1 CHF; Hypertension; Osteoporosis; psoriasis; Urinary incontinence; - PSHx: 10:57 Appendectomy; Cholecystectomy; ld1 - Immunization history:: Adult Immunizations up to date, Client reports receiving the 2nd dose of the Covid vaccine. - Social history:: Smoking status: Patient denies any tobacco usage or history of. Patient/guardian denies using alcohol. ROS: 11:04 Eyes: Negative for injury, pain, redness, and discharge, ENT: Negative for injury, sp3 pain, and discharge, Neck: Negative for injury, pain, and swelling, Abdomen/GI: Negative for abdominal pain, nausea, vomiting, diarrhea, and constipation, Back: Negative for injury and pain, Skin: Negative for injury, rash, and discoloration, Neuro: Negative for headache, weakness, numbness, tingling, and seizure, Psych: Negative for depression, anxiety, suicide ideation, homicidal ideation, and hallucinations, Allergy/Immunology: Negative for hives, rash, and allergies, Endocrine: Negative for neck swelling, polydipsia, polyuria, polyphagia, and marked weight changes. 11:04 All other systems are negative. Exam: 11:05 Head/Face: Normocephalic, atraumatic. Eyes: Pupils equal round and reactive to light, sp3 extra-ocular motions intact. Lids and lashes normal. Conjunctiva and sclera are non-icteric and not injected. Cornea within normal limits. Periorbital areas with no swelling, redness, or edema. ENT: Nares patent. No nasal discharge, no septal abnormalities noted. External auditory canals are clear. Oropharynx with no redness, swelling, or masses, exudates, or evidence of obstruction, uvula midline. Mucous membranes moist. Neck: Trachea midline, no thyromegaly or masses palpated, and no cervical lymphadenopathy. Supple, full range of motion without nuchal rigidity, or vertebral point tenderness. No Meningismus. Chest/axilla: Normal chest wall appearance and motion. Nontender with no deformity. No lesions are appreciated. Cardiovascular: Regular rate and rhythm with a normal S1 and S2. No gallops, murmurs, or rubs. Normal PMI, no JVD. No pulse deficits. Abdomen/GI: Soft, non-tender, with normal bowel sounds. No distension or tympany. No guarding or rebound. No evidence of tenderness throughout. Back: No spinal tenderness. No costovertebral tenderness. Full range of motion. Skin: Warm, dry with normal turgor. Normal color with no rashes, no lesions, and no evidence of cellulitis. Neuro: Awake and alert, GCS 15, oriented to person, place, time, and situation. Cranial nerves II-XII grossly intact. Motor strength 5/5 in all extremities. Sensory grossly intact. Cerebellar exam normal. Normal gait. Psych: Awake, alert, with orientation to person, place and time. Behavior, mood, and affect are within normal limits. 11:05 Respiratory: She was mild respiratory distress and rales noted bilaterally. Patient also has increased peripheral edema in the lower extremities.. Vital Signs: 10:55 BP 217 / 108; Pulse 99; Resp 22; Temp 97.9(TE); Pulse Ox 93% on 2 lpm NC; Weight 104.33 ld1 kg; Height 5 ft. 2 in. (157.48 cm); Pain 7/10; 13:13 BP 140 / 92; Pulse 63; Resp 18; Pulse Ox 97% on R/A; kr3 14:00 BP 147 / 38; Pulse 62; Resp 18; Pulse Ox 97% on R/A; ll1 15:19 BP 125 / 104; Pulse 62; Resp 18; Pulse Ox 96% on R/A; kr3 10:55 Body Mass Index 42.07 (104.33 kg, 157.48 cm) ld1 MDM: 11:01 Patient medically screened. sp3 11:06 Data reviewed: vital signs, nurses notes. ED course: 76-year-old female with likely CHF sp3 exacerbation. Patient's blood pressure is 217/108 and her physical exam is consistent with fluid overload. Will obtain labs, EKG, chest x-ray to confirm diagnosis. We will also administer nitroglycerin sublingually, aspirin, Lasix IV to start treatment. . 12:37 ED course: She is feeling much better and blood pressure is improved. Patient is back sp3 on nasal cannula. BNP is over 3000. Remainder of labs look okay. Will admit patient for 23-hour observation for continued diuresis with probable discharge tomorrow.. 04/06 11:00 Order name: Basic Metabolic Panel; Complete Time: 12:35 [facility] 04/06 11:00 Order name: CBC with Diff [facility] 04/06 11:00 Order name: NT PRO-BNP; Complete Time: 12:35 3 04/06 11:00 Order name: PT-INR; Complete Time: 11:58 [facility] 04/06 11:00 Order name: Troponin HS; Complete Time: 12:35 [facility] 04/06 13:29 Order name: Lactate [facility] 04/06 11:00 Order name: XRAY Chest (1 view) [facility] 04/06 13:29 Order name: Blood Culture [facility] 04/06 13:30 Order name: Blood Culture [facility] 04/06 13:34 Order name: Echo with Doppler [facility] 04/06 13:49 Order name: SARS RAPID aa5 04/06 14:22 Order name: SARS-COV-2 Antigen Rapid [facility] 04/06 11:00 Order name: EKG; Complete Time: 11:04 3 04/06 11:00 Order name: Cardiac monitoring; Complete Time: 11:33 3 04/06 11:00 Order name: EKG - Nurse/Tech; Complete Time: 11:33 [facility] 04/06 11:00 Order name: IV Saline Lock; Complete Time: 11:40 [facility] 04/06 11:00 Order name: Labs collected and sent; Complete Time: 11:17 sp3 04/06 11:00 Order name: O2 Per Protocol; Complete Time: 11:16 sp3 04/06 11:00 Order name: O2 Sat Monitoring; Complete Time: 11:16 sp3 Administered Medications: 11:35 Drug: Aspirin Chewable Tablet 324 mg Route: PO; 1 15:22 Follow up: Response: No adverse reaction kr3 11:36 Drug: Nitroglycerin 0.4 mg Route: Sublingual; 1 15:22 Follow up: Response: No adverse reaction kr3 11:37 Drug: Lasix (furosemide) 40 mg Route: IVP; Site: left antecubital; 1 15:22 Follow up: Response: No adverse reaction kr3 Disposition Summary: 04/06/22 12:38 Hospitalization Ordered Hospitalization Status: Observation sp3 Provider: Sean Perez sp3 Location: Telemetry/MedSurg (observation) sp3 Condition: Stable sp3 Problem: an acute exacerbation sp3 Symptoms: have worsened sp3 Bed/Room Type: Standard sp3 Room Assignment: 418(04/06/22 14:28) dw Diagnosis - Systolic (congestive) heart failure sp3 Forms: - Medication Reconciliation Form sp3 - SBAR form sp3 Signatures: Dispatcher [employer] EDAleksandra Somers RN RN dw Marlyn Moses RN RN ll1 Susan Hoffman RN RN ld1 Frank Fernández MD MD sp3 Maine Mathews RN kr3 Corrections: (The following items were deleted from the chart) 10:58 10:57 PSHx: None; ld1 ld1 14:28 12:38 sp3 dw
[2022-04-06 12:55] LABS: Absolute Lymphocytes (CBC) 1.4 K/uL (0.7-4.9); Hematocrit 38.7 % (36.0-45.0); Lymphocytes % 25.5 % (15.3-44.8); MCV 92.8 fL (80-100); MPV 8.6 fL (7.6-11.3); RBC Red Blood Cell Count 4.17 M/uL (3.86-4.86)
[2022-04-06] MEDS: DOXYCYCLINE 100 MG in NA CHLORIDE 0.9% 100 ML IVPB SCH ×2 (13:25→21:49)
--- NOTE | 2022-04-06 13:31 | P.HP ---
Certification for Inpatient Patient admitted to: Inpatient With expected LOS: >2 Midnights Patient will require the following post-hospital care: None Practitioner: I am a practitioner with admitting privileges, knowledge of patient current condition, hospital course, and medical plan of care. Services: Services provided to patient in accordance with Admission requirements found in Title 42 Section 412.3 of the Code of Federal Regulations Patient History Date of Service: 04/06/22 Reason for admission: Acute Congestive Heart Failure Exacerbation History of Present Illness: Ms. Breanne Montes De Oca is a pleasant 76 year old female who has a past medical history of chronic diastolic congestive heart failure, chronic obstructive pulmonary disease, asthma, bipolar disorder, hypertension, hypothyroidism, and psoriasis who presents to the [facility] Emergency Department for shortness of breath. She was recently admitted to our hospital earlier this month for an acute congestive heart failure exacerbation. Please refer to the discharge summary by Dr. Carcamo dated 03/26/2022 for further details on that hospitalization. She reports that, over the last 3-4 days, she has been experiencing progressively worsening shortness of breath. She denies any associated symptoms and specifically denies any pain. She states that her shortness of breath is significantly worse when lying flat, and is typically relieved by sitting up. She reports that she has had these symptoms in the past, and they seem to be associated with her congestive heart failure exacerbations. Currently, she grades the severity of her symptoms a 9/10. On review of systems, she denies any fevers, chills, headaches, dizziness, syncope, weakness, chest pain, p alpitations, abdominal pain, nausea/vomiting, diarrhea, constipation, hematochezia, melena, dysuria, hematuria, myalgia, or any other symptoms. She presented to the Emergency Department for further evaluation. Upon presentation, her vital signs were notable for a heart rate of 99 bpm, a respiratory rate of 22 breaths/min, and a blood pressure of 217/108. Her laboratory studies were notable for an NT-Pro BNP of 3,511. Blood cultures x 2 were obtained. EKG revealed sinus rhythm with a prolonged QTc interval (500 msec). Chest x-ray revealed, "mild CHF with superimposed right lung base pneumonia suspected." In the Emergency Department, she was given aspirin 324 mg PO x 1, nitroglycerin 0.4 mg x 1, and furosemide 40 mg IV x 1. She was admitted to the General Internal Medicine service for further evaluation. Allergies No Known Drug Allergies Allergy (Verified 09/22/19 17:26) Unknown Home medications list reviewed: Yes (She does not know her home meds. Prior records reviewed.) Home Medications: Divalproex Sodium [Depakote] 500 mg PO BID 11/27/14 Loratadine [Claritin*] 10 mg PO DAILY 11/27/14 Pravastatin Sodium [Pravachol] 20 mg PO DAILY 11/27/14 Metoprolol Succinate [Toprol Xl*] 50 mg PO DAILY #30 tab 11/30/14 Omeprazole [Prilosec] 40 mg PO DAILY 05/25/15 Amlodipine [Norvasc*] 5 mg PO DAILY 06/11/18 Levothyroxine Sodium [Levoxyl] 100 mcg PO [id number] 06/11/18 Losartan Potassium [Cozaar*] 50 mg PO DAILY 06/11/18 Albuterol Sulfate [Proair Hfa] 1 - 2 puff IH Q4HP PRN 09/22/19 Fluticasone/Umeclidin/Vilanter [Trelegy Ellipta 100-62.5-25] 1 puff IH DAILY 09/22/19 Solifenacin Succinate 1 tab PO DAILY 09/22/19 Cholecalciferol (Vitamin D3) [Children's Vitamin D3] 1,000 unit PO DAILY #30 tab.chew 09/23/19 Ergocalciferol (Vitamin D2) [Drisdol] 50,000 unit PO EVERY 7TH DAY #8 capsule 09/23/19 Furosemide [Lasix] 40 mg PO DAILY #30 tab 03/26/22 Spironolactone [Aldactone*] 25 mg PO BID #60 tab 03/26/22 - Past Medical/Surgical History Diabetic: No -: COPD -: HTN -: BRONCHITIS -: EMPHYSEMA -: HLD -: BIPOLAR DISORDER -: CLAUSTROPHOBIA -: SLEEP APNEA -: HYPOTHYROIDISM -: GERD -: CHF -: Arthritis -: APPY -: LILI - Family History Mother -: Heart disease, Lung disease Father -: Cancer Brother -: Lung disease, Cancer Sister -: Lung disease, Cancer Notes: Melanoma - Social History Smoking Status: Never smoker Alcohol use: No CD- Drugs: No Caffeine use: Yes Review of Systems 10-point ROS is otherwise unremarkable Respiratory: Cough, Shortness of Breath, SOB with Excertion Cardiovascular: Orthopnea, Paroxysmal Noc. Dyspnea, Edema Physical Examination - Vital Signs Temperature: 97.9 F ((vitals on presentation)) Blood Pressure: 217/108 Pulse: 99 Respirations: 22 Pulse Ox (%): 93 (on 2 L NC) - Physical Exam General: Alert, In no apparent distress HEENT: Atraumatic, PERRLA, Mucous membr. moist/pink, EOMI, Sclerae nonicteric Neck: Supple, 2+ carotid pulse no bruit, JVD distended Respiratory: Crackles/rales Cardiovascular: Regular rate/rhythm, Normal S1 S2, No gallops, No rubs, No murmurs, Edema (1+ pitting lower extremity edema) Gastrointestinal: Normal bowel sounds, Soft and benign, Non-distended, No tenderness, No rebound, No guarding Musculoskeletal: No tenderness Integumentary: No rashes Neurological: Normal gait, Normal speech, Normal strength at 5/5 x4 extr, Normal tone, Normal affect Lymphatics: No axilla or inguinal lymphadenopathy - Studies Laboratory Data (last 24 hrs) 04/06/22 12:43: WBC 5.7 D, Hgb 13.2, Hct 38.7 D, Plt Count 341 04/06/22 11:10: PT 10.6, INR 0.96 04/06/22 11:10: Sodium 139, Potassium 4.0, BUN 14, Creatinine 0.92, Glucose 93 Assessment and Plan - Plan # Acute on Chronic Decompensated Diastolic Congestive Heart Failure with Preserved Ejection Fraction (LVEF 56 %) # Suspect Flash Pulmonary Edema secondary to Hypertensive Emergency, now improved with Nitroglycerin - Consult Cardiology and notified Dr. Herrmann - recommendations appreciated - Ordered transthoracic echocardiogram - Diuresis with IV furosemide for today - NT-Pro BNP = 3,511 - Serial troponin: first was 26.1 - Daily weights - Strict I/O - Cardiac diet, 2 L fluid restriction, 2 g Na restriction # Sepsis likely secondary to Right Lower Lobe Pneumonia She met SIRS criteria based on HR > 90 bpm and RR > 20 breaths/min, and the suspected source is right lower lobe pneumonia. - Sepsis order set was initiated - Initial Lactate was requested, trend - Blood cultures x 2 requested - Broad spectrum antibiotics started: Ceftriaxone + Doxycycline (chosen over azithromycin due to prolonged QTc interval [500 msec]) - In regards to fluids: - 30 mL/kg of IV fluids was not administered given SBP > 90, MAP > 65 and concern for decompensated heart failure # COVID-19 Positive It is unclear if this is contributing to her symptoms. - Currently with appropriate SpO2 readings on room air - Encouraged incentive spirometry # Chronic Obstructive Pulmonary Disease # Asthma - No evidence of acute exacerbation - Continue home medications once verified # Hypothyroidism - Continue home medications once verified # Psoriasis - Continue home medications once verified # Bipolar Disorder - Continue home medications once verified Sean Perez MD Discharge Plan: Home Plan to discharge in: Greater than 2 days - Advance Directives Does patient have a Living Will: No Does patient have a Durable POA for Healthcare: No - Code Status/Comfort Care Code Status Assessed: Yes Code Status: Full Code
[2022-04-06 14:22] LABS: SARS-CoV-2 Antigen Rapid Res Positive (Negative)
--- OUTSIDE RECORDS SUMMARY | 2022-04-06 16:15 | XMS REPORT | Continuity of Care Document ---
:1945 Author Organization [facility] t Address [address] [place] [address] Dr. [address]. [address] [place] [address] Care Team Providers Name Role Phone Pasquale Attending Clinician Unavailable Ron Posada MD Attending Clinician Franki Spicer MD Attending Clinician Chip LOVETT Attending Clinician Db LOVETT Attending Clinician Ana LOVETT Attending Clinician KNOW Admitting Clinician Unavailable Chip LOVETT Admitting Clinician Payers Payer Name Policy Type Policy Number Effective Date Expiration Date [facility] [id number] 2015 MEDICARE GOLD 00:00:00 Problems Condition Condition Condition Status Onset Resolution Last Treating Co mments Source Name Details Category Date Date Treatment Clinician Date Meningioma Meningioma Disease Active U nivers 2-21 ity of 00:00: [address] CVA, old, CVA, old, Disease Active Uni vers facial facial 2-19 ity of weakness weakness 00:00: [address] Morbid Morbid Disease Active Univers obesity obesity 9-02 ity of 00:00: [address] HTN HTN Disease Active Univers (hypertens (hypertens 05-19 it y of ion) ion) 00:00: [place] 00 [facility] Branch COPD COPD Disease Active Univers (chronic (chronic 05-19 ity of obstructiv obstructiv [place] Medical pulmonary pulmonary Bran ch disease) disease) Hyperchole Hyperchole Disease Active U nivers steremia steremia 05-19 ity of 00:00: [place] 00 Medical Branch CHF CHF Disease Active Univers (congestiv (congestiv 05-19 it y of e heart e heart 00:00: [place] failure) failure) 00 Medica l Branch Bipolar Bipolar Disease Active Univers affective affective 05-19 ity of disorder disorder 00:00: [place] 00 Medical Branch MELISSA MELISSA Disease Active Univers (obstructi (obstructi 05-19 it y of ve sleep ve sleep 00:00: [place] apnea) apnea) 00 Medical Branch GERD GERD Disease Active Univers (gastroeso (gastroeso 05-19 it y of phageal phageal 00:00: [place] reflux reflux 00 Medical disease) disease) Branch Severe Severe Diagnosis Active Common obesity obesity Spirit (BMI >= (BMI >= - CHI 40) 40) [facility] Incontinen Incontinen Problem Active C ommon ce in ce in Spirit female female [facility] Primary Primary Diagnosis Active Commo n osteoarthr osteoarthr Sp tai itis of itis of - CHI left knee left knee [facility] Pain in Pain in Diagnosis Active Commo n joint of joint of [facility] left knee left knee - CH I [facility] Allergies, Adverse Reactions, Alerts Allergy Allergy Status Severity Reaction(s) Onset Inactive Treating Comm ents Source Name Type Date Date Clinician NO KNOWN Drug Active Univers ALLERGIE Class ity of S [facility] Social History Social Habit Start Date Stop Date Quantity Comments Source Sex Assigned At Universit y of [facility] Exposure to Not sure [facility] SARS-CoV-2 (event) [facility] Cigarettes smoked 2020-11-07 2020-11-07 Univers ity of current (pack per 00:00:00 00:00:00 [facility] ) - Reported Branch Cigarette 2020-11-07 2020-11-07 University of pack-years 00:00:00 00:00:00 [facility] Alcohol intake 2020-11-07 2020-11-07 Current University of 00:00:00 00:00:00 non-drinker of [facility] alcohol (finding) Branch Alcohol Comment 2015-05-19 2015-05-19 Occasional 1 x Unive rsity of 00:00:00 00:00:00 month Beer 6 - 12 [facility] edical / a weekend Branch History of tobacco 2004-09-17 Smoker Univer sity of use 00:00:00 [facility] Smoking Status Start Date Stop Date Source Former smoker 2020-11-07 00:00:00 2020-11-07 00:00:00 [facility] Medications Ordered Filled Start Stop Current Ordering Indication Dosage Frequency Signature Comments Components Source Medication Medication Date Date Medication? Clinician (SIG) Name Name lisinopriL Yes 40mg 40 mg, Unive rs (PRINIVIL,Z 2-26 Oral, ity of ESTRIL) 15:15: DAILY, [place] tablet 40 00 First dose Medi vinay mg (after Branch last modificati on) on Sun11/12/20 at 0915, Until Discontinu ed, Routine HYDROcodone 2020- No 1{tbl} 1 tablet, Univers -acetaminop 11-12- Oral, ity of hen (NORCO 02:24: 02:23 Q6HPRN, Esa as 5) 5-325 mg 27 :27 Starting Medi vinay tablet 1 Betty [place] tablet 11/11/20 at 2023, Until Sun11/12/20 at 2022, Routine, Pain (scale 4-6), Pain (scale 7-10) aspirin 81 Yes 81mg Take 1 Unive rs mg EC - tablet by ity of tablet 00:00: mouth [place] 00 daily. Medical Branch clopidogreL Yes 75mg Take 1 Univ ers 75 mg 2-26 tablet by ity of tablet 00:00: mouth [place] 00 daily. Medical Branch lisinopriL Yes 40mg Take 1 Unive rs 40 mg 2-26 tablet by ity of tablet 00:00: mouth [place] 00 daily. Medical Branch lisinopriL 2020- No 20mg Take 1 Univ ers 20 mg -12 11- tablet by ity of tablet 00:00: 00:00 mouth [place] 00 :00 daily. Medical Branch clopidogreL Yes 75mg 75 mg, Univ ers (PLAVIX) 2-25 Oral, ity of tablet 75 15:00: DAILY, [place] mg 00 First dose Medical on Sun Branch 11/11/20 at 0900, Until Discontinu ed, Routine atorvastati Yes [id number] 40mg Take 1 Univers n 40 mg 2-25 tablet by ity of tablet 00:00: mouth at [place] 00 bedtime. Medical Branch HYDROcodone 2020- No 1{tbl} 1 tablet, Univers -acetaminop 11-10 Oral, ity of hen (NORCO 17:07: 17:06 Q6HPRN, Esa as 5) 5-325 mg 57 :57 Starting Medi vinay tablet 1 Sun [place] tablet 11/10/20 at 1107, Until [facility] 11/11/20 at 1106, Routine, Pain (scale 4-6), Pain (scale 7-10) lisinopriL 2020- No 20mg 20 mg, Univ ers (PRINIVIL,Z 11-10 Oral, ity of ESTRIL) 16:45: 15:03 DAILY, [place] tablet 20 00 :05 First dose Medi vinay mg on [facility] Branch 11/10/20 at 1045, Until Discontinu ed, Routine cilostazoL 2020- No 100mg 100 mg, Un rashad (PLETAL) 11-10 Oral, BID, ity of tablet 100 16:45: 18:08 First dose [place] mg 00 :47 on [facility] Medical 11/10/20 at Branch 1045, Until Discontinu ed, Routine ceFAZolin 2020- No Slow IV Univ ers (ANCEF) 11-10 Push, PRN, ity o f injection 16:00: 16:00 Starting Esa as 00 :00 [facility] Medical 11/10/20 at Branch 1000, Until Sun11/10/20 at 1000, CHARLENE midazolam 2020- No IV Push, Uni vers (VERSED) 11-10 PRN, ity of injection 16:00: 16:00 Starting Esa as 00 :00 Sun Medical 11/10/20 at Branch 1000, Until Sun11/10/20 at 1000, Routine lidocaine No PRN, Univers 2% 11-10 Starting ity of (XYLOCAINE) 15:18: 15:18 Sun [place] 20 mg/mL (2 41 :41 11/10/20 at Sd dical %) 0918, Branch injection Until Sun11/10/20 at 0918, Routine FENTanyl PF 2020- No Slow IV Un rashad (SUBLIMAZE 11-10 Push, PRN, it y of (PF)) 15:12: 16:00 Starting [place] injection 00 :00 Wed Medical 11/10/20 at Branch 0912, Until Sun11/10/20 at 1000, Routine iohexol No 250mL 250 mL, Unive rs (OMNIPAQUE 11-10 Intravenou it y of 300-100 mL) 15:00: 15:00 s, ONCE, 1 [place] injection 00 :00 dose, Wed Medic al 250 mL 11/10/20 at [place] 0900, Routine NaCl 0.9% No 1000mL at 75 Univ ers (NS) IV 11-10 mL/hr, IV ity of infusion 00:15: 17:09 Infusion, Esa as 1,000 mL 00 :34 CONTINUOUS Medic al , Starting [place] Sun11/09/20 at 1815, Until Sun11/10/20 at 1109, Routine aspirin EC Yes 81mg 81 mg, Unive rs tablet 81 23 Oral, ity of mg 15:00: DAILY, [place] 00 First dose Medical (after [place] last modificati on) on Sun11/09/20 at 0900, Until Discontinu ed, Routine aspirin 2020- No [id number] 325mg Take 1 Un rashad E.C. 325 mg 11-09 tablet by it y of EC tablet 00:00: 00:00 mouth [place] 00 :00 daily for Medical 30 days. [place] clopidogreL No 75mg 75 mg, Uni vers (PLAVIX) 11-08 Oral, ity of tablet 75 20:30: 16:30 DAILY, [place] mg 00 :50 First dose Medical on Sun [place] 11/08/20 at 1430, Until Discontinu ed, Routine gadoteridol 2020- No .2mL/kg 22.68 mL Univers (PROHANCE-2 11-08 (0.2 mL/kg i ty of 0 mL) 19:00: 18:47 ?113.4 [place] injection 00 :00 kg), Medical 22.68 mL Intravenou Branc h s, ONCE, 1 dose, 11/08/20 at 1300, Routine atorvastati 2020- No [id number] 40mg Take 1 Univers n 40 mg 11-08 tablet by ity of tablet 00:00: 00:00 mouth at [place] 00 :00 bedtime Medical for 30 Branch days. losartan 25 2020- No [id number] 25mg Take 1 Univers mg tablet 11-08 tablet by ity of 00:00: 00:00 mouth at [place] 00 :00 bedtime Medical for 30 Branch days. ondansetron 2020- No 4mg 4 mg, Slow Univers (ZOFRAN 11-07 IV Push, ity of (PF)) 20:56: 16:30 Q6HPRN, [place] injection 4 06 :39 Starting Medi vinay mg [facility] 11/07/20 at 1456, Until 11/10/20 at 1030, Routine, Nausea and Vomiting (N/V) melatonin Yes 3mg 3 mg, Univers (MELATIN) 11-07 Oral, ity of tablet 3 mg 07:39: QHSPRN, Esa as 59 Starting Medical [facility] 11/07/20 at 0139, Until Discontinu ed, Routine, Insomnia aspirin No 325mg 325 mg, Unive rs E.C. 11-06 Oral, ity of (ECOTRIN) 15:00: 22:25 DAILY, [place] tablet 325 00 :48 First dose Med ical mg (after Branch last modificati on) on 11/06/20 at 0900, Until Discontinu ed, Routine atorvastati Yes 40mg 40 mg, Univ ers n (LIPITOR) 2-20 Oral, QHS, it y of tablet 40 03:00: [place] dose [place] mg 00 on Sun Medical 11/05/20 at Branch 2100, Until Discontinu ed, Routine enoxaparin Yes 40mg 40 mg, Unive rs (LOVENOX) 11-05 Subcutaneo ity of injection 23:00: us, DAILY, [place] 40 mg 00 First dose Medical on Sun Branch 11/05/20 at 1700, Until Discontinu ed, Routine aspirin 2020- No 325mg 325 mg, Unive rs E.C. 11-05 Oral, ity of (ECOTRIN) 14:15: 15:16 ONCE, 1 [place] tablet 325 00 :00 dose, Sun Medi vinay mg 11/05/20 at Branch 0815, STAT cefTRIAXone 2020- No 1000mg 1,000 mg, Univers (ROCEPHIN) 11-05 IV ity of 1,000 mg in 01:45: 02:03 Piggyback, [place] NaCl 0.9% 00 :00 ONCE, 1 Medical (NS) 50 mL dose, [facility] Bran ch MINI-BAG 11/04/20 at 1945, 50 mL
Reas on for Anti-Infec tive: Empiric Therapy for Suspected Infection< br>Empiric Therapy Site: Urine
D uration of therapy: 72 hours sulfur 2020- No 10mL 10 mL, Univers hexafluorid 11-04 Intravenou i ty of e microsphr 20:45: 15:55 s, ONCE, 1 [place] (LUMASON) 00 :00 dose, [facility] Medic al injection 11/04/20 at [facility] ch 10 mL 1445, Routine
city council member approving Restricted medication : FINA ZAPATA aspirin 2020- No 81mg 81 mg, Univers chewable 11-04 Oral, ity of tablet 81 15:00: 01:58 DAILY, [place] mg 00 :55 First dose Medical on [place] Branch 11/04/20 at 0900, Until Discontinu ed, Routine cefTRIAXone 2020- No 1000mg 1,000 mg, Univers (ROCEPHIN) 11-04 IV ity of 1,000 mg in 07:00: 06:37 Piggyback, [place] NaCl 0.9% 00 :00 ONCE, 1 Medical (NS) 50 mL dose, [facility] Bran ch MINI-BAG 11/04/20 at 0100, 50 mL
Reas on for Anti-Infec tive: Documented Infection< br>Documen maria c Infection Site: Urine
D uration of Therapy: Other (see Comments) KCL 2020- No 40meq 40 mEq, Univers (KLOR-CON 11-04 Oral, ity of M20) tablet 05:15: 04:38 ONCE, 1 [place] 40 mEq 00 :00 dose, [facility] Medical 11/03/20 at Branch 2315, Routine iohexol 2020- No 100mL 100 mL, Unive rs (OMNIPAQUE 11-04 Intravenou it y of 350 00:30: 00:09 s, ONCE, 1 [place] BULK-100 00 :00 dose, [facility] Medica l mL) 11/03/20 at [place] injection 1830, 100 mL Routine NaCl 0.9% 2020- No 500mL at 999 Univ ers (NS) bolus 11-03 mL/hr, 500 it y of infusion 23:45: 04:32 mL, IV [place] 500 mL 00 :00 Infusion, Medical ONCE, 1 Branch dose, 11/03/20 at 1745, CHARLENE NaCl 0.9% Yes 5mL 5 mL, Slow Un rashad (NS) 2 IV Push, ity of injection 5 23:28: PRN - SEE [place] mL 59 INSTRUCTIO Medical NS, Branch Starting 11/03/20 at 1728, Until Discontinu ed, 10 mL Estrace Estrace Yes Ramon as Commo n 6-06 [facility] directed Spirit 00:00: - [facility] 00 [facility] Levothyroxi Levothyroxi Yes Ramon 1 tablet Common ne Sodium ne Sodium Johns on an Sp tai empty - CHI stomach in [facility] Pravastatin Pravastatin Yes Ramon 1 tablet Common Sodium Sodium [facility] - [facility] Loratadine Loratadine Yes Ramon 1 tablet Common Allergy Allergy Johns on the Spiri t Relief Relief tongue and - CHI allow to [facility] Perforomist Perforomist Yes Ramon 2 ml Common [facility] - [facility] Divalproex Divalproex Yes Ramon not C ommon Sodium Sodium Johns defined [facility] Losartan Losartan Yes Ramon 1 tablet C ommon Potassium Potassium [facility] Furosemide Furosemide Yes Ramon 1 tablet Common Johns [facility] ProAir HFA ProAir HFA Yes Ramon 2 puffs as Common Johns needed [facility] Symbicort Symbicort Yes Ramon 2 puffs Common Johns [facility] Amlodipine Amlodipine Yes Ramon 1 tablet Common Besylate Besylate [facility] Klor-Con Klor-Con Yes Ramon 1 packet C ommon Johns with food [facility] Quetiapine Quetiapine Yes Armon 1 tablet Common Fumarate Fumarate [facility] Metoprolol Metoprolol Yes Ramon not C ommon Succinate Succinate [facility] Immunizations Ordered Filled Immunization Date Status Comments [facility] e Immunization Name Name Pneumococcal 2015-05-30 [facility] o f Polysaccharide, 00:00:00 [facility] ical PPSV23 (PNEUMOVAX) [place] Vital Signs Vital Name Observation Time Observation Value Comments Source Systolic blood 2020-11-12 22:50:00 152 mm[Hg] [facility] Di[facility] blood 2020-11-12 22:50:00 67 mm[Hg] [facility] Heart rate 2020-11-12 22:50:00 90 /min [facility] Body temperature 2020-11-12 22:50:00 37.39 Karen [facility] Res[facility] rate 2020-11-12 22:50:00 20 /min [facility] Oxygen saturation in 2020-11-12 22:50:00 96 /min [facility] Arterial blood by [facility] Pulse oximetry Branch Body weight 2020-11-03 23:13:00 113.399 kg [facility] BMI 2020-11-03 23:13:00 47.20 kg/m2 [facility] Systolic blood 2020-11-12 22:50:00 152 mm[Hg] Univer [facility] Diastolic blood 2020-11-12 22:50:00 67 mm[Hg] [facility] of pressure [facility] Heart rate 2020-11-12 22:50:00 90 /min [facility] Body temperature 2020-11-12 22:50:00 37.39 Karen [facility] Respiratory rate 2020-11-12 22:50:00 20 /min [facility] Oxygen saturation in 2020-11-12 22:50:00 96 /min [facility] Arterial blood by [facility] Pulse oximetry [place] Body weight 2020-11-03 23:13:00 113.399 kg [facility] BMI 2020-11-03 23:13:00 47.20 kg/m2 [facility] Procedures Procedure Date / Time Performing Clinician Source Performed BASIC METABOLIC PANEL 2020-11-10 10:07:00 Arminda Barrera [facility] (NA, K, CL, CO2, GLUCOSE, Medica l Branch BUN, CREATININE, CA) CBC WITH DIFF 2020-11-10 10:07:00 Franko [facility] VERIFYNOW ASPIRIN TEST 2020-11-10 10:07:00 Arminda [facility]rera [facility] BASIC METABOLIC PANEL 2020-11-09 10:43:00 Franko [facility] (NA, K, CL, CO2, GLUCOSE, Medica l Branch BUN, CREATININE, CA) CBC WITH DIFF 2020-11-09 10:43:00 Franko [facility] MR BRAIN W WO CONTRAST 2020-11-08 18:56:40 Roxanne Bhandari [facility] BASIC METABOLIC PANEL 2020-11-08 10:18:00 [facility] (NA, K, CL, CO2, GLUCOSE, Medica l Branch BUN, CREATININE, CA) CBC WITH DIFF 2020-11-08 10:18:00 Franko [facility] POCT GLUCOSE (AUTOMATED) 2020-11-07 14:06:00 [facility]OM[facility]) 2020-11-07 02:09:00 YariSondra brennan [facility] POCT GLUCOSE (AUTOMATED) 2020-11-06 22:49:00 JoycerupaSondra brennan [facility] POCT GLUCOSE (AUTOMATED) 2020-11-06 18:43:00 Sondra Spicer [facility] POCT GLUCOSE (AUTOMATED) 2020-11-06 14:19:00 JoycerupaToyin brennantuan Franki [facility] POCT GLUCOSE (AUTOMATED) 2020-11-06 02:45:00 JoycerupaSondra brennan [facility] POCT GLUCOSE (AUTOMATED) 2020-11-05 23:16:00 JoycerupaToyin brennantuan Franki [facility] POCT GLUCOSE (AUTOMATED) 2020-11-05 18:47:00 JoycerupaSondra brennan [facility] POCT GLUCOSE (AUTOMATED) 2020-11-05 15:21:00 ArleneJorge brennanbrian Franki [facility] TROPONIN I 2020-11-05 10:07:00 [facility] BASIC METABOLIC PANEL 2020-11-05 10:07:00 [facility] (NA, K, CL, CO2, GLUCOSE, Jessie Medica l Branch BUN, CREATININE, CA) CBC WITH DIFF 2020-11-05 10:07:00 [facility] TROPONIN I 2020-11-05 02:24:00 Briana Tiwari [facility] ECHO ROUTINE W/DOPPLER 2020-11-04 15:07:52 [facility] COL[facility] CAROTID DUPLEX BILATERAL 2020-11-04 14:36:19 Briana Tiwari [facility] BY VASCULAR LAB [facility] LIPID PANEL ([id number])(TOTAL 2020-11-04 14:21:00 Briana Tiwari [facility] CHOLESTEROL, [facility] Branch TRIGLYCERIDES, HDL) GLYCOSYLATED HEMOGLOBIN 2020-11-04 14:21:00 Briana Tiwari [facility] (A1C) [facility] URINALYSIS 2020-11-04 04:37:00 [facility] 2020-11-04 04:33:00 Sondra Spicer [facility] N-TERMINAL PRO-BNP 2020-11-04 04:33:00 Sondra Spicer [facility] CREATINE KINASE 2020-11-04 00:28:00 Sean Posada [facility] CT STROKE ANGIOGRAM HEAD 2020-11-04 00:17:10 Sean Posada [facility] CT STROKE ANGIOGRAM NECK 2020-11-04 00:17:10 Sean Posada [facility] CT STROKE HEAD WO 2020-11-04 00:01:24 Sean Posada [facility] CONTRAST [facility] HB CREATININE BLOOD 2020-11-03 23:50:00 Sean Posada [facility] TROPONIN I 2020-11-03 23:49:00 Sean Posada [facility] BASIC METABOLIC PANEL 2020-11-03 23:49:00 Sean Posada [facility] (NA, K, CL, CO2, GLUCOSE, Medica l Branch BUN, CREATININE, CA) CBC WITHOUT DIFF 2020-11-03 23:49:00 Sean Posada [facility] PROTHROMBIN TIME / INR 2020-11-03 23:49:00 Sean Posada [facility] ACTIVATED PARTIAL 2020-11-03 23:49:00 Saen Posada [facility] THRLAS TAMMIE [facility] Branch COVID-19 (ID NOW RAPID 2020-11-03 23:49:00 Sean Posada [facility] TESTING) Medical Branch LAB ONLY COVID 2020-11-03 23:49:00 Sean Posada [facility] INTERPRETATION [facility] HB ECG ROUTINE & RHYTHM 2020-11-03 23:29:45 Sean Posada [facility] POCT GLUCOSE (AUTOMATED) 2020-11-03 23:28:00 Sean Posada [facility] CONSENT/REFUSAL FOR 2020-11-03 22:59:33 Doctor Unassigned, [facility] DIAGNOSIS AND TREATMENT [facility] NOTICE OF PRIVACY 2020-11-03 22:58:50 Doctor Hernán, [facility] PRACTICES [facility] AGREEMENTS AUTHORIZATIONS 2020-11-03 06:01:00 Doctor Hernán, [facility] AND IRREVOCABLE [facility] ASSIGNMENTS (FORM 2001) Encounters Start End Encounter Admission Attending Care Care Encounter Source Date/Time Date/Time Type Type Clinicians Facility Department ID 2019-09-15 Inpatient [facility] MED [id number] [facility] B 00:38:00 2019-05-26 Inpatient E [facility] MED [id number] [facility] H 18:54:00 2020-11-17 2020-11-17 Outpatient Pasquale [facility] [id number] [facility] 15:00:00 15:00:00 Tang Clarke303 [facility] 2020-11-16 2020-11-16 Outpatient JANIYA Giordano [facility] G99 [id number] [facility] 12:03:00 12:03:00 Tang Clarke302 [facility] 2020-11-15 2020-11-15 Outpatient Pasquale [facility] G99 [id number] [facility] 15:00:00 15:00:00 Tang Clarke301 [facility] 2020-11-03 2020-11-12 [facility] [id number] .[id number] 17:16:00 19:49:00 [facility]counter [place] [id number] [facility] [place] [id number]. [address] [place] [id number] [facility] 109 (CLC) 2020-11-03 2020-11-12 [facility] [id number] .114 [id number] [facility] 17:16:00 19:49:00 [facility]counter [facility] [id number] ity Jessie Saunders [place] [id number]. [id number] [place] [id number] Medical [facility] 109 Br anch (CLC) 2020-11-03 2020-11-03 Emergency X [facility] ERT [id number] Univers 16:55:00 16:55:00 ity [facility] 2018-11-11 2018-11-11 [facility] [id number] Common 14:00:00 14:00:00 [facility] 2018-11-04 2018-11-04 [facility] [id number] Common 14:00:00 14:00:00 [facility] 2018-10-21 2018-10-21 [facility] [id number] Common 08:30:00 08:30:00 t [facility] Results Test Description Test Time Test Comments Results Result Sour e Comments - CT UP EXTREM 2020-11-16 W/O CONT LT 16:39:00 [facility] 1945 Sex: F Name: JAMES BOYER [facility] : 1945 Age/S: 75 / F [address] [facility] Unit #: [id number] Loc: LopezPRETTY [address] Phys: Tang Giordano MD Acct: [id number] Dis Date: Status: REG CLI PHONE #: [phone] Exam Date: 11/16/2020 1237 FAX #: [phone] Reason: DISLOCATION OF LT SHOULDER. EXAMS: CPT CODE: [id number] CT UP EXTREM W/[place] [address] [place] left shoulder without contrast. INDICATION: Anterior dislocation of left shoulder/humerus. COMPARISON: None. TECHNIQUE: Noncontrast CT of the shoulder is performed with thin cut reconstructions in all 3 planes. DOSE: CT imaging performed at this location utilizes radiation dose optimization technique which includes one or more of the followin) Automated exposure control; 2) Adjustment of the mA and/or kV according to patient's size; 3) Use of iterative reconstruction techniques. DLP: 593 mGy-cm FINDINGS: There is no acute fracture or dislocation in the shoulder. Moderately severe osteoarthritis is present of the acromioclavicular joint. Mild to moderate glenohumeral osteoarthritis also present with osteophyte, joint space narrowing, and subchondral cysts. No large glenohumeral joint effusion able to be identified by CT. No severe rotator cuff muscle atrophy appreciated by CT. Mild generalized age-appropriate atrophy seen. Emphysematous changes partially included in the [id number] in the left lung. Linear atelectasis or scarring in the left upper lobe noted. IMPRESSION: 1. No acute fracture or dislocation of shoulder. 2. 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 3. 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 SL: SG-H at 1639 Reported and signed by: Fausto Desai M.D. CC: Tang Giordano MD Technologist:RT Ashley(R)(CT) CTDI: DLP: Trnscb Date/Time: 11/16/2020 (1639) [id number] PAGE 1 Signed Report VERIFYNOW ASPIRIN TEST 2020-11-10 11:00:00 Test Item Value Reference Range Interpretation Comme nts VerifyNow Aspirin Test (test See Comment ARU code = [id number]) SHANIA (test code = SHANIA) < 550 ARU - Evidence of platelet dysfunction due to aspirin>= 550 ARU - No evidence of aspirin-induced platelet dysfunction The performance of VerifyNow Aspirin test on patients with acquired non-drug induced platelet abnormalities is not known. Patients who have been treated with Glycoprotein IIb/IIIa inhibitor drugs should not be tested until platelet function has recovered. The recovery period after drug administration is discontinued is approximately 14 days for abciximab (ReoPro) and up to 48 hours for eptifibatide (Integrilin) and tirofiban (Aggrastat). The time to recovery of platelet functions varies among individuals and is longer for patients with renal dysfunction. Patient with low platelet counts may not give consistent results. Results should be interpreted in conjunction with other laboratory and clinical data available to the clinician. [facility]10 10:51:00 Test Item Value Reference Range Interpretation Comments VerifyNow PRUTest See_Comment [Automate d (P2Y12) (test code message] The = [id number]) system which generated this result transmitted reference range : 182 - 335 PRU. The reference range was not used to interpret this result as normal/abnormal . SHANIA (test code = Off-drug PRU SHANIA) reference range is 180 - 376. Values less than 180 PRU suggest evidence of a P2Y12 inhibitor effect, which may be explained by P2Y12 receptor medications. ? ? P2Y12 Reaction Units (PRU) indicates the amount of ADP-mediated aggregation specific to the platelet P2Y12 receptor; a LOW PRU indicates a higher response to anti-platelet medication while a HIGH PRU indicates lower platelet inhibitive effect. Patients who have been treated with Glycoprotein IIb/IIIa inhibitor drugs should not be tested with the PRUtest until platelet function has recovered. The recovery period after drug administration is discontinued is approximately 14 days to abciximab (ReoPro) and up to 48 hours for eptifibatide (Integrilin) and tirofiban (Aggrastat). The time to recovery of platelet functions varies among individuals and is not affected by renal dysfunction. Patient with low platelet counts may not give consistent results. Results should be interpreted in conjunction with other laboratory and clinical data available to the clinician. Lab Interpretation Normal (test code = 95312-7) [facility] (NA, K, CL, CO2, GLUCOSE, BUN, CREATININE, CA)2020-11-10 10:38:00 Test Item Value Reference Range Interpretation Comments NA (test code = 136 mmol/L 135-145 6820615225) K (test code = 3.8 mmol/L 3.5-5 6638686555) CL (test code = 97 mmol/L 98-108 L 7448687083) CO2 TOTAL (test code = 32 mmol/L 23-31 H 8517291705) AGAP (test code = 2-16 2580345189) BUN (test code = 19 mg/dL 7-23 8501313751) GLUCOSE (test code = 101 mg/dL 70-110 2015652562) CREATININE (test code = 0.89 mg/dL 0.5-1.04 3232708551) CALCIUM (test code = 9.4 mg/dL 8.6-10.6 4408605342) eGFR Calculation mL/min/1.73m2 (Non-) (test code = 4757933942) eGFR Calculation mL/min/1.73m2 () (test code = 7964295612) SHANIA (test code = SHANIA) Association of Glomerular Filtration Rate (GFR) and Staging of Kidney Disease* + --+ --+ ------+| GFR (mL/min/1.73 m2) ?| With Kidney Damage ?| ?Without Kidney Damage+ --------+ --------+ +| ?>90 ?| ?Stage one ?| ? Normal ?+ ---+ ---+ -------+| ?60-89 ?| ?Stage two ?| ? Decreased GFR ? + --+ --+ ------+| ?30-59 ?| ?Stage three ?| ? Stage three ? + --+ --+ ------+| ?15-29 ?| ?Stage four ? | ? Stage four ?+ ---+ ---+ -------+| ?<15 (or dialysis) ? ?| ?Stage five ? | ? Stage five ?+ ---+ ---+ -------+ *Each stage assumes the associated GFR level has been in effect for at least three months. ?Stages 1 to 5, with or without kidney disease, indicate chronic kidney disease. Notes: Determination of stages one and two (with eGFR >59mL/min/1.73 m2) requires estimation of kidney damage for at least three months as defined by structural or functional abnormalities of the kidney, manifested by either:Pathological abnormalities or Markers of kidney damage (including abnormalities in the composition of the blood or urine or abnormalities in imaging tests). Lab Interpretation Abnormal (test code = 93283-3) [facility] WITH [id number] 10:31:00 Test Item Value Reference Range Interpretation Comments WBC (test code = See_Comment [Automated 6690-2) message] The sy stem which generated this result transmitted reference range : 4.30 - 11.10 10*3/?L. The reference range was not used to interpret this result as normal/abnormal . RBC (test code = See_Comment [Automated 789-8) message] The sy stem which generated this result transmitted reference range : 3.93 - 5.25 10*6/?L. The reference range was not used to interpret this result as normal/abnormal . HGB (test code = 12.1 g/dL 11.6-15 718-7) HCT (test code = 37.3 % 35.7-45.2 4544-3) MCV (test code = 91.2 fL 80.6-95.5 787-2) MCH (test code = 29.6 pg 25.9-32.8 785-6) MCHC (test code = 32.4 g/dL 31.6-35.1 786-4) RDW-SD (test code = 44.4 fL 39-49.9 22816-8) RDW-CV (test code = 13.5 % 12-15.5 788-0) PLT (test code = See_Comment [Automated 777-3) message] The sy stem which generated this result transmitted reference range : 166 - 358 10*3/ ?L. The reference r maría was not used to interpret this result as normal/abnormal . MPV (test code = 10.3 fL 9.5-12.9 94678-2) NRBC/100 WBC (test See_Comment [Automat ed code = 8721594777) message] The system which generated this result transmitted reference range : 0.0 - 10.0 /100 WBCs. The refer ence range was not u sed to interpret th is result as normal/abnormal . NRBC x10^3 (test code <0.01 See_Comment [Auto mated = 3445218721) message] The s ystem which generated this result transmitted reference range : 10*3/?L. The reference range was not used to interpret this result as normal/abnormal . GRAN MAT (NEUT) % 47.5 % (test code = 770-8) IMM GRAN % (test code 0.40 % = 5562308417) LYMPH % (test code = 39.2 % 736-9) MONO % (test code = 10.1 % 5905-5) EOS % (test code = 2.3 % 713-8) BASO % (test code = 0.5 % 706-2) GRAN MAT x10^3(ANC) 4.65 10*3/uL 1.88-7.09 (test code = 4194796940) IMM GRAN x10^3 (test 0.04 10*3/uL 0-0.06 code = 6629889509) LYMPH x10^3 (test code 3.85 10*3/uL 1.32-3.29 H = 731-0) MONO x10^3 (test code 0.99 10*3/uL 0.33-0.92 H = 742-7) EOS x10^3 (test code = 0.23 10*3/uL 0.03-0.39 711-2) BASO x10^3 (test code 0.05 10*3/uL 0.01-0.07 = 704-7) Lab Interpretation Abnormal (test code = 57485-2) [facility] METABOLIC PANEL (NA, K, CL, CO2, GLUCOSE, BUN, CREATININE, CA)2020-11-09 11:04:00 Test Item Value Reference Range Interpretation Comments NA (test code = 135 mmol/L 135-145 5688394952) K (test code = 3.8 mmol/L 3.5-5 3111040583) CL (test code = 98 mmol/L 98-108 4650737867) CO2 TOTAL (test code = 32 mmol/L 23-31 H 1071886450) AGAP (test code = 2-16 7970833579) BUN (test code = 17 mg/dL 7-23 8020845672) GLUCOSE (test code = 94 mg/dL 70-110 6469973115) CREATININE (test code = 0.89 mg/dL 0.5-1.04 2594657948) CALCIUM (test code = 9.3 mg/dL 8.6-10.6 0929997439) eGFR Calculation mL/min/1.73m2 (Non-) (test code = 7797702443) eGFR Calculation mL/min/1.73m2 () (test code = 9576534871) SHANIA (test code = SHANIA) Association of Glomerular Filtration Rate (GFR) and Staging of Kidney Disease* + --+ --+ ------+| GFR (mL/min/1.73 m2) ?| With Kidney Damage ?| ?Without Kidney Damage+ --------+ --------+ +| ?>90 ?| ?Stage one ?| ? Normal ?+ ---+ ---+ -------+| ?60-89 ?| ?Stage two ?| ? Decreased GFR ? + --+ --+ ------+| ?30-59 ?| ?Stage three ?| ? Stage three ? + --+ --+ ------+| ?15-29 ?| ?Stage four ? | ? Stage four ?+ ---+ ---+ -------+| ?<15 (or dialysis) ? ?| ?Stage five ? | ? Stage five ?+ ---+ ---+ -------+ *Each stage assumes the associated GFR level has been in effect for at least three months. ?Stages 1 to 5, with or without kidney disease, indicate chronic kidney disease. Notes: Determination of stages one and two (with eGFR >59mL/min/1.73 m2) requires estimation of kidney damage for at least three months as defined by structural or functional abnormalities of the kidney, manifested by either:Pathological abnormalities or Markers of kidney damage (including abnormalities in the composition of the blood or urine or abnormalities in imaging tests). Lab Interpretation Abnormal (test code = 43701-8) [facility] WITH [id number] 10:52:00 Test Item Value Reference Range Interpretation Comments WBC (test code = See_Comment [Automated message] 6690-2) The system [employer] generated this result transmitted ref erence range: 4.30 - 1 1.10 10*3/?L. The re ference range was not u sed to interpret this result as normal/abnor mal. RBC (test code = See_Comment [Automated message] 789-8) The system [employer] generated this result transmitted ref erence range: 3.93 - 5 .25 10*6/?L. The re ference range was not u sed to interpret this result as normal/abnor mal. HGB (test code = 12.5 g/dL 11.6-15 718-7) HCT (test code = 38.5 % 35.7-45.2 4544-3) MCV (test code = 90.8 fL 80.6-95.5 787-2) MCH (test code = 29.5 pg 25.9-32.8 785-6) MCHC (test code = 32.5 g/dL 31.6-35.1 786-4) RDW-SD (test code 43.8 fL 39-49.9 = 53533-0) RDW-CV (test code 13.4 % 12-15.5 = 788-0) PLT (test code = See_Comment [Automated message] 777-3) The system [employer] h generated this result transmitted ref erence range: 166 - 35 8 10*3/?L. The re ference range was not u sed to interpret this result as normal/abnor mal. MPV (test code = 10.1 fL 9.5-12.9 40845-8) NRBC/100 WBC (test See_Comment [Automat ed message] code = 2427034354) The syste m which generated this result transmitted ref erence range: 0.0 - 10 .0 /100 WBCs. The refer ence range was not u sed to interpret this result as normal/abnor mal. NRBC x10^3 (test <0.01 See_Comment [Automated message] code = 9074658443) The syste m which generated this result transmitted ref erence range: 10*3/?L. The reference range was not used to interpr et this result as normal/abnormal . GRAN MAT (NEUT) % 53.2 % (test code = 770-8) IMM GRAN % (test 0.40 % code = 0214848131) LYMPH % (test code 31.3 % = 736-9) MONO % (test code 11.5 % = 5905-5) EOS % (test code = 3.1 % 713-8) BASO % (test code 0.5 % = 706-2) GRAN MAT 4.05 10*3/uL 1.88-7.09 x10^3(ANC) (test code = 0897896500) IMM GRAN x10^3 0.03 10*3/uL 0-0.06 (test code = 5533854016) LYMPH x10^3 (test 2.39 10*3/uL 1.32-3.29 code = 731-0) MONO x10^3 (test 0.88 10*3/uL 0.33-0.92 code = 742-7) EOS x10^3 (test 0.24 10*3/uL 0.03-0.39 code = 711-2) BASO x10^3 (test 0.04 10*3/uL 0.01-0.07 code = 704-7) [facility] [id number] 19:19:05 Acute-subacute lacunar infarct involving the right valentin radiata Avidly enhancing, dural-based, extra-axial masses measuring 2-3 cm in theanterior aspect of the right sylvian fissure and overlying the posterioraspect of the left temporal lobe corresponding to densely calcified lesionson prior CT. These most likely represent meningiomas. The mass in the rightsylvian fissure results in mild edema and/or gliosis in the underlyingtemporal pole. Background mild global volume loss and mild ischemic small vessel diseaseMR BRAIN W WO CONTRAST HISTORY: Female 75 years stroke COMPARISON: CT head dated 11/03/2020 TECHNIQUE: Multiplanar multi weighted imaging of the brain was obtainedbefore and following the administration of 20 mL IV ProHance FINDINGS: The ventricles and cerebral sulci are prominent consistent with mild globalvolume loss. No hydrocephalus, midline shift or pathological extra-axialfluid collection is present. The basal cisterns are unremarkable. A small focus of restricted diffusion is noted in the right valentin radiatacorresponds to the hypodensity described on recent CT head. Periventricularand additional scattered small foci of hyperintense T2/FLAIR signal in thebiconvexity deep white matter are nonspecific but most likely representischemic small vessel changes. Remote lacunar infarcts are noted in thebilateral basal ganglia. There are 2 avidly enhancing, extra-axial masses which correspond to thedensely calcified lesion seen on prior CT. One lies within the anterioraspect of the right sylvian fissure at the junction of the anterior andmiddle cranial fossae and measures approximately 3.1 x 2.0 x 2.2 cm (AP byTV by CC). There is involvement of the underlying calvarium. There is al soprobably mild mass effect on the temporal pole with subtle associatedhyperintense FLAIR signal compatible with edema. The second mass overlies the posterior aspect of the left temporal lobe andmeasures approximately 2.4 x 2.3 x 2.0 cm (AP by TV by CC). No signalabnormality is seen in the overlying parenchyma. There is scalloping of theunderlying inner skull table. No focus of abnormal parenchymal gradient blooming or enhancement ispresent. No abnormal fluid signal is present in the mastoid air cells or paranasalair sinuses. The T2 flow voids for the major intracranial vessels areunremarkable. [facility], Radiant Results Inft User - 11/08/2020 1:20 PM CSTMR BRAIN W WO CONTRASTHISTORY: Female 75 years stroke COMPARISON: CT head dated 11/03/2020TECHNIQUE: Multiplanar multi weighted imaging of the brain was obtainedbefore and following the administration of 20 mL IV ProHanceFINDINGS:The ventricles and cerebral sulci are prominent consistent with mild globalvolume loss. No hydrocephalus, midline shift or pathological extra-axialfluid collection is present. The basal cisterns are unremarkable.A small focus of restricted diffusion is noted in the right valentin radiatacorresponds to the hypodensity described on recent CT head. Periventricularand additional scattered small foci of hyperintense T2/FLAIR signal in thebiconvexity deep white matter are nonspecific but most likely representischemic small vessel changes. Remote lacunar infarcts are noted in thebilateral basal ganglia.There are 2 avidly enhancing, extra-axial masses which correspond to thedensely calcified lesion seen on prior CT. One lies within the anterioraspect of the right sylvian fissure at the junction of the anterior andmiddle cranial fossae and measures approximately 3.1 x 2.0 x 2.2 cm (AP byTV by CC). There is involvement of the un derlying calvarium. There is alsoprobably mild mass effect on the temporal pole with subtle associatedhyperintense FLAIR signal compatible with edema.The second mass overlies the posterior aspect of the left temporal lobe andmeasures approximately 2.4 x 2.3 x 2.0 cm (AP by TV by CC). No signalabnormality is seen in the overlying parenchyma. There is scalloping of theunderlying inner skull table.No focus of abnormal parenchymal gradient blooming or enhancement ispresent.No abnormal fluid signal is present in the mastoid air cells or paranasalair sinuses. The T2 flow voids for the major intracranial vessels areunremarkable.IMPRESSIONAcute-subacute lacunar infarct involving the right valentin radiataAvidly enhancing, dural-based, extra-axial masses measuring 2-3 cm in theanterior aspect of the right sylvian fissure and overlying the posterioraspect of the left temporal lobe corresponding to densely calcified lesionson prior CT. These most likely represent meningiomas. The mass in the rightsylvian fissure results in mild edema and/or gliosis in the underlyingtemporal pole.Background mild global volume loss and mild ischemic small vessel diseaseUnO[facility] METABOLIC PANEL (NA, K, CL, CO2, GLUCOSE, BUN, CREATININE, CA)2020-11-08 10:43:00 Test Item Value Reference Range Interpretation Comments NA (test code = 135 mmol/L 135-145 5091961849) K (test code = 3.8 mmol/L 3.5-5 4785185400) CL (test code = 98 mmol/L 98-108 8946306505) CO2 TOTAL (test code = 31 mmol/L 23-31 6949696923) AGAP (test code = 2-16 6411124281) BUN (test code = 18 mg/dL 7-23 0620546783) GLUCOSE (test code = 99 mg/dL 70-110 1379736369) CREATININE (test code 0.95 mg/dL 0.5-1.04 = 8209562098) CALCIUM (test code = 9.4 mg/dL 8.6-10.6 0840738241) eGFR Calculation mL/min/1.73m2 (Non-) (test code = 7907186728) eGFR Calculation mL/min/1.73m2 () (test code = 9826773261) SHANIA (test code = SHANIA) Association of Glomerular Filtration Rate (GFR) and Staging of Kidney Disease* + -+ + ---+| GFR (mL/min/1.73 m2) ?| With Kidney Damage ?| ?Without Kidney Damage+ -------+ ------+ ---------+| ?>90 ?| ?Stage one ?| ? Normal ?+ --+ -+ ----+| ?60-89 ?| ?Stage two ?| ? Decreased GFR ? + -+ + ---+| ?30-59 ?| ?Stage three ?| ? Stage three ? + -+ + ---+| ?15-29 ?| ?Stage four ? | ? Stage four ?+ --+ -+ ----+| ?<15 (or dialysis) ? ?| ?Stage five ? | ? Stage five ?+ --+ -+ ----+ *Each stage assumes the associated GFR level has been in effect for at least three months. ?Stages 1 to 5, with or without kidney disease, indicate chronic kidney disease. Notes: Determination of stages one and two (with eGFR >59mL/min/1.73 m2) requires estimation of kidney damage for at least three months as defined by structural or functional abnormalities of the kidney, manifested by either:Pathological abnormalities or Markers of kidney damage (including abnormalities in the composition of the blood or urine or abnormalities in imaging tests). [facility] WITH [id number] 10:25:00 Test Item Value Reference Range Interpretation Comments WBC (test code = See_Comment [Automated 4532-2) message] The sy stem which generated this result transmitted reference range : 4.30 - 11.10 10*3/?L. The reference range was not used to interpret this result as normal/abnormal . RBC (test code = See_Comment [Automated 995-8) message] The sy stem which generated this result transmitted reference range : 3.93 - 5.25 10*6/?L. The reference range was not used to interpret this result as normal/abnormal . HGB (test code = 12.3 g/dL 11.6-15 718-7) HCT (test code = 37.8 % 35.7-45.2 4544-3) MCV (test code = 90.9 fL 80.6-95.5 787-2) MCH (test code = 29.6 pg 25.9-32.8 785-6) MCHC (test code = 32.5 g/dL 31.6-35.1 786-4) RDW-SD (test code = 44.1 fL 39-49.9 70110-2) RDW-CV (test code = 13.3 % 12-15.5 788-0) PLT (test code = See_Comment H [Automated 777-3) message] The sy stem which generated this result transmitted reference range : 166 - 358 10*3/ ?L. The reference r maría was not used to interpret this result as normal/abnormal . MPV (test code = 10.0 fL 9.5-12.9 95334-0) NRBC/100 WBC (test See_Comment [Automat ed code = 6703343923) message] The system which generated this result transmitted reference range : 0.0 - 10.0 /100 WBCs. The refer ence range was not u sed to interpret th is result as normal/abnormal . NRBC x10^3 (test code <0.01 See_Comment [Auto mated = 8346554245) message] The s ystem which generated this result transmitted reference range : 10*3/?L. The reference range was not used to interpret this result as normal/abnormal . GRAN MAT (NEUT) % 54.7 % (test code = 770-8) IMM GRAN % (test code 0.10 % = 0618855356) LYMPH % (test code = 31.2 % 736-9) MONO % (test code = 11.0 % 5905-5) EOS % (test code = 2.6 % 713-8) BASO % (test code = 0.4 % 706-2) GRAN MAT x10^3(ANC) 4.55 10*3/uL 1.88-7.09 (test code = 1734079662) IMM GRAN x10^3 (test <0.03 0-0.06 code = 5772677579) LYMPH x10^3 (test code 2.59 10*3/uL 1.32-3.29 = 731-0) MONO x10^3 (test code 0.91 10*3/uL 0.33-0.92 = 742-7) EOS x10^3 (test code = 0.22 10*3/uL 0.03-0.39 711-2) BASO x10^3 (test code 0.03 10*3/uL 0.01-0.07 = 704-7) Lab Interpretation Abnormal (test code = 08618-4) [facility] [id number] 05:02:00COVID DMT InterpretationInterpretation/Recommendations: Molecular NAAT Tests for Active Infection with the SARS-CoV-2 Virus: The patient has currently tested negative for the SARS-CoV-2 virus that causes COVID-19 illness. This most likely indicates that the patient does not have an active infection with the SARS-CoV-2 virus. However, infection is not completely ruled out as the false negative rate for molecular NAAT testing using a nasopharyngeal sample can be up to 30%, mostly dependent on the timing of sample collection in relation to illness onset and any deficiencies in sampling techniques. If the patient has symptoms concerning for COVID-19 illness, a repeat NAAT test (PCR, Rapid ID Now, etc.) should be performed, at which time the SARS-CoV-2 virus - if present - may have reached a detectable viral load (usually peaking by the end of the first week of symptoms). Tests for IgM and/or IgGAntibodies to the SARS-CoV-2 Virus: If the patient develops COVID-19 illness in the future, testingfor IgM and IgG antibodies approximately 3 weeks after illness onset will likely indicate if the patient has produced antibodies to the SARS-CoV-2 virus. However, some patients may take longer to develop detectable antibodies, while some patients who were infected with SARS-CoV-2 may never develop antibodies. While antibodies to SARS-CoV-2 may provide some degree of immunity, at this time the strength and duration of the antibody response is unknown. Interpretation Result Comments:These interpretation comments are based uponall COVID-19 testing the patient has had at [facility], including molecular NAAT testing (more commonly known as PCR testing and Rapid ID Now testing) and antibody testing. It does not take into account any testing that a patient has had outside of the [facility] medical record. [facility] LABORATORY SERVICESCOVID Res yinmFAAD-SpY-7 Rapid ID NOW (no units) ? ? Date ? Value ? 11/03/2020 ? Not Detected ? [facility]2020-11-07 14:07:00 Test Item Value Reference Range Interpretation Comments POCT GLU (test code = 3537924736) 93 mg/dL 70-110 Lab Interpretation (test code = Normal 29132-9) General acute hospital GLUCOSE (AUTOMATED)2020-11-07 02:11:00 Test Item Value Reference Range Interpretation Comments POCT GLU (test code = 5272341729) 109 mg/dL 70-110 Lab Interpretation (test code = Normal 40189-6) General acute hospital GLUCOSE (AUTOMATED)2020-11-06 22:50:00 Test Item Value Reference Range Interpretation Comments POCT GLU (test code = 5614228097) 119 mg/dL 70-110 H Lab Interpretation (test code = Abnormal 53174-9) General acute hospital GLUCOSE (AUTOMATED)2020-11-06 18:52:00 Test Item Value Reference Range Interpretation Comments POCT GLU (test code = 6579916775) 101 mg/dL 70-110 Lab Interpretation (test code = Normal 99395-3) General acute hospital GLUCOSE (AUTOMATED)2020-11-06 14:19:00 Test Item Value Reference Range Interpretation Comments POCT GLU (test code = 3383238514) 100 mg/dL 70-110 Lab Interpretation (test code = Normal 36989-2) General acute hospital GLUCOSE (AUTOMATED)2020-11-06 02:46:00 Test Item Value Reference Range Interpretation Comments POCT GLU (test code = 0607890751) 89 mg/dL 70-110 Lab Interpretation (test code = Normal 51349-2) General acute hospital GLUCOSE (AUTOMATED)2020-11-05 23:17:00 Test Item Value Reference Range Interpretation Comments POCT GLU (test code = 0928610796) 101 mg/dL 70-110 Lab Interpretation (test code = Normal 72052-0) General acute hospital GLUCOSE (AUTOMATED)2020-11-05 18:49:00 Test Item Value Reference Range Interpretation Comments POCT GLU (test code = 9476481142) 110 mg/dL 70-110 Lab Interpretation (test code = Normal 49730-3) General acute hospital GLUCOSE (AUTOMATED)2020-11-05 15:22:00 Test Item Value Reference Range Interpretation Comments POCT GLU (test code = 8770171499) 100 mg/dL 70-110 Lab Interpretation (test code = Normal 95643-4) [facility] [id number] 11:16:00 Test Item Value Reference Range Interpretation Comments TROPONIN I (test 0.061 ng/mL See_Comment H [Automated code = 2395227121) message] The system which generated this result transmitted reference range : <=0.034. The reference range was not used to interpret this result as normal/abnormal . SHANIA (test code = Equal or Less than SHANIA) 0.034 ng/ml---Normal ?Note: Cardiac troponin begins to rise 3-4 hours after the onset of ischemia. Repeat in 4-6 hours if the sample was drawn within 3-4 hours of the onset of the symptom and found normal. Between 0.035 and 0.120 ng/mL--- Borderline. Questionable myocardial injury or necrosis ? ?Note: Serial measurement may be necessary to confirm or exclude the diagnosis of myocardial injury or necrosis; Clinical correlation (symptoms, EKGs, imaging studies, and others) required; Repeat in 4-6 hours if clinically indicated. ? Equal or Higher than 0.121 ng/mL---Abnormal. Myocardial Injury or Necrosis Likely ? Biotin has been reported to cause a negative bias, interpret results relative to patient's use of biotin. ? Lab Interpretation Abnormal (test code = 57136-9) [facility] (NA, K, CL, CO2, GLUCOSE, BUN, CREATININE, CA)2020-11-05 10:30:00 Test Item Value Reference Range Interpretation Comments NA (test code = 138 mmol/L 135-145 2490173889) K (test code = 3.2 mmol/L 3.5-5 L 4705107813) CL (test code = 98 mmol/L 98-108 1284048381) CO2 TOTAL (test code = 32 mmol/L 23-31 H 7193468017) AGAP (test code = 2-16 2263796758) BUN (test code = 29 mg/dL 7-23 H 9247751900) GLUCOSE (test code = 106 mg/dL 70-110 1431277187) CREATININE (test code = 1.18 mg/dL 0.5-1.04 H 9832540418) CALCIUM (test code = 9.3 mg/dL 8.6-10.6 2266309261) eGFR Calculation mL/min/1.73m2 (Non-) (test code = 2703743831) eGFR Calculation mL/min/1.73m2 () (test code = 5607993916) SHANIA (test code = SHANIA) Association of Glomerular Filtration Rate (GFR) and Staging of Kidney Disease* + --+ --+ ------+| GFR (mL/min/1.73 m2) ?| With Kidney Damage ?| ?Without Kidney Damage+ --------+ --------+ +| ?>90 ?| ?Stage one ?| ? Normal ?+ ---+ ---+ -------+| ?60-89 ?| ?Stage two ?| ? Decreased GFR ? + --+ --+ ------+| ?30-59 ?| ?Stage three ?| ? Stage three ? + --+ --+ ------+| ?15-29 ?| ?Stage four ? | ? Stage four ?+ ---+ ---+ -------+| ?<15 (or dialysis) ? ?| ?Stage five ? | ? Stage five ?+ ---+ ---+ -------+ *Each stage assumes the associated GFR level has been in effect for at least three months. ?Stages 1 to 5, with or without kidney disease, indicate chronic kidney disease. Notes: Determination of stages one and two (with eGFR >59mL/min/1.73 m2) requires estimation of kidney damage for at least three months as defined by structural or functional abnormalities of the kidney, manifested by either:Pathological abnormalities or Markers of kidney damage (including abnormalities in the composition of the blood or urine or abnormalities in imaging tests). Lab Interpretation Abnormal (test code = 58951-7) [facility] WITH [id number] 10:17:00 Test Item Value Reference Range Interpretation Comments WBC (test code = See_Comment [Automated 6690-2) message] The sy stem which generated this result transmitted reference range : 4.30 - 11.10 10*3/?L. The reference range was not used to interpret this result as normal/abnormal . RBC (test code = See_Comment [Automated 789-8) message] The sy stem which generated this result transmitted reference range : 3.93 - 5.25 10*6/?L. The reference range was not used to interpret this result as normal/abnormal . HGB (test code = 12.5 g/dL 11.6-15 718-7) HCT (test code = 38.5 % 35.7-45.2 4544-3) MCV (test code = 91.0 fL 80.6-95.5 787-2) MCH (test code = 29.6 pg 25.9-32.8 785-6) MCHC (test code = 32.5 g/dL 31.6-35.1 786-4) RDW-SD (test code = 45.7 fL 39-49.9 49980-9) RDW-CV (test code = 13.6 % 12-15.5 788-0) PLT (test code = See_Comment H [Automated 777-3) message] The sy stem which generated this result transmitted reference range : 166 - 358 10*3/ ?L. The reference r maría was not used to interpret this result as normal/abnormal . MPV (test code = 10.3 fL 9.5-12.9 50440-0) NRBC/100 WBC (test See_Comment [Automat ed code = 2075955581) message] The system which generated this result transmitted reference range : 0.0 - 10.0 /100 WBCs. The refer ence range was not u sed to interpret th is result as normal/abnormal . NRBC x10^3 (test code <0.01 See_Comment [Auto mated = 9779903203) message] The s [employer] which generated this result transmitted reference range : 10*3/?L. The reference range was not used to interpret this result as normal/abnormal . GRAN MAT (NEUT) % 53.2 % (test code = 770-8) IMM GRAN % (test code 0.40 % = 7540670958) LYMPH % (test code = 31.6 % 736-9) MONO % (test code = 10.8 % 5905-5) EOS % (test code = 3.4 % 713-8) BASO % (test code = 0.6 % 706-2) GRAN MAT x10^3(ANC) 5.24 10*3/uL 1.88-7.09 (test code = 5022515307) IMM GRAN x10^3 (test 0.04 10*3/uL 0-0.06 code = 1672190791) LYMPH x10^3 (test code 3.11 10*3/uL 1.32-3.29 = 731-0) MONO x10^3 (test code 1.06 10*3/uL 0.33-0.92 H = 742-7) EOS x10^3 (test code = 0.33 10*3/uL 0.03-0.39 711-2) BASO x10^3 (test code 0.06 10*3/uL 0.01-0.07 = 704-7) Lab Interpretation Abnormal (test code = 08284-6) [id number] 03:13:00 Test Item Value Reference Range Interpretation Comments TROPONIN I (test 0.085 ng/mL See_Comment H [Automated code = 9449152813) message] The system which generated this result transmitted reference range : <=0.034. The reference range was not used to interpret this result as normal/abnormal . SHANIA (test code = Equal or Less than SHANIA) 0.034 ng/ml---Normal ?Note: Cardiac troponin begins to rise 3-4 hours after the onset of ischemia. Repeat in 4-6 hours if the sample was drawn within 3-4 hours of the onset of the symptom and found normal. Between 0.035 and 0.120 ng/mL--- Borderline. Questionable myocardial injury or necrosis ? ?Note: Serial measurement may be necessary to confirm or exclude the diagnosis of myocardial injury or necrosis; Clinical correlation (symptoms, EKGs, imaging studies, and others) required; Repeat in 4-6 hours if clinically indicated. ? Equal or Higher than 0.121 ng/mL---Abnormal. Myocardial Injury or Necrosis Likely ? Biotin has been reported to cause a negative bias, interpret results relative to patient's use of biotin. ? Lab Interpretation Abnormal (test code = 93565-8) [facility]2020-11-04 21:45:00 Test Item Value Reference Range Interpretation Comments HGB A1C (test code = 5.2 % 4-6 4548-4) SHANIA (test code = SHANIA) %A1C (NGSP) Interpretation (ADA)4.8-5.6 ? ? Normal or (Non-Diabetic Range)5.7-6.4 ? ? Increased Risk (Pre-Diabetic)>6.5 ?Diabetes Indicated Lab Interpretation Normal (test code = 49017-0) [facility]77705)(TOTAL CHOLESTEROL, TRIGLYCERIDES, HDL)2020-11-04 14:39:00 Test Item Value Reference Range Interpretation Comments CHOL (test code = 139 mg/dL 120-200 9831438014) HDL (test code = 36 mg/dL >50 L 5941403252) HDLC RATIO (test code = See_Comment [Au tomated message] 1068855684) The system [employer] generated this result transmit maria c reference range : <=4.5. The refe rence range was not u sed to interpret th is result as normal/abnormal . TRIG (test code = 99 mg/dL 30-170 2368688827) LDL CHOL (test code = 83 mg/dL See_Comment [Auto mated message] 98474-1) The system [employer] generated this result transmit maria c reference range : <=160. The refe rence range was not u sed to interpret th is result as normal/abnormal . VLDL (test code = 20 mg/dL 5-60 8868164271) Lab Interpretation (test Abnormal code = 87687-5) [facility] [id number] 14:29:00 Test Item Value Reference Range Interpretation Comments POCT Creatinine (test code = 1.7 mg/dL 0.5-1.1 H 7081309518) Lab Interpretation (test code = Abnormal 94570-5) [facility] [id number] 05:41:00 Test Item Value Reference Range Interpretation Comments TROPONIN I (test 0.132 ng/mL See_Comment H [Automated code = 5231559719) message] The system which generated this result transmitted reference range : <=0.034. The reference range was not used to interpret this result as normal/abnormal . SHANIA (test code = Equal or Less than SHANIA) 0.034 ng/ml---Normal ?Note: Cardiac troponin begins to rise 3-4 hours after the onset of ischemia. Repeat in 4-6 hours if the sample was drawn within 3-4 hours of the onset of the symptom and found normal. Between 0.035 and 0.120 ng/mL--- Borderline. Questionable myocardial injury or necrosis ? ?Note: Serial measurement may be necessary to confirm or exclude the diagnosis of myocardial injury or necrosis; Clinical correlation (symptoms, EKGs, imaging studies, and others) required; Repeat in 4-6 hours if clinically indicated. ? Equal or Higher than 0.121 ng/mL---Abnormal. Myocardial Injury or Necrosis Likely ? Biotin has been reported to cause a negative bias, interpret results relative to patient's use of biotin. ? Lab Interpretation Abnormal (test code = 09152-1) [facility] [id number] 05:15:00 Test Item Value Reference Range Interpretation Comments NT-proBNP (test code 820 pg/mL See_Comment H [Autom ated = 3548406245) message] The system which generated this result transmitted reference range : <=450. The reference range was not used to interpret this result as normal/abnormal . SHANIA (test code = SHANIA) Biotin has been reported to cause a negative bias, interpret results relative to patient's use of biotin. Lab Interpretation Abnormal (test code = 52441-5) [id number] 05:06:00 Test Item Value Reference Range Interpretation Comments APPEARANCE (test code = Clear Clear 6554943153) COLOR (test code = Yellow Yellow 3092021923) PH (test code = 4.8-8.0 9574236255) SP GRAVITY (test code = 1.003-1.030 H 8868399595) GLU U QUAL (test code = Normal Normal 2130361586) BLOOD (test code = Negative Negative 0754985987) KETONES (test code = Negative Negative 3065323324) PROTEIN (test code = Negative Negative 2887-8) UROBILIN (test code = Normal Normal 6766195803) BILIRUBIN (test code = Negative Negative 2514097297) NITRITE (test code = Positive Negative A 3497619248) LEUK CHUY (test code = 75/uL Negative A 1210545546) RBC/HPF (test code = See_Comment [Autom ated message] 7168516703) The system [employer] generated this result transmitted ref erence range: 0 - 3 HP F. The reference range was not used to int erpret this result as normal/abnormal . WBC/HPF (test code = See_Comment H [Autom ated message] 0314686931) The system [employer] generated this result transmitted ref erence range: 0 - 5 HP F. The reference range was not used to int erpret this result as normal/abnormal . BACTERIA (test code = Few Negative A 0796419250) MUCOUS (test code = Slight Negative LPF A 0922974101) SQ EPITH (test code = <1 HPF 7425420015) HYAL CAST (test code = See_Comment H [Aut omated message] 4784171367) The system [employer] generated this result transmitted ref erence range: <=2 LPF. The reference range was not used to int erpret this result as normal/abnormal . Lab Interpretation (test Abnormal code = 08975-2) [facility] [id number] 01:07:06 No proximal large vessel occlusion or flow-limiting intracranial stenosisidentified. 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 Otherwise,no flow-limiting extra cranial stenosis identified. CT STROKE ANGIOGRAM HEAD, CT STROKE ANGIOGRAM NECK HISTORY: Female 75 years Acute Stroke Rad: please obtain POCT creatinineprior to CTA head/neck COMPARISON: None TECHNIQUE: . CT angiographic images of the head and neck were obtainedafter administration of IV contrast. Multiplanar reformats includingmaximum intensity projection images submitted for review. FINDINGS: CTA HEAD: The PICA origin is visualized on the left. Right PICA AICA variant issuspected. Trace atherosclerosis of the right V4 vertebral artery segmentwithout flow-limiting stenosis. The basilar artery is normal in caliber.The superior cerebellar arteries are unremarkable. The posterior cerebralarteries are unremarkable. A therosclerotic calcifications of the carotid siphons without flow- limitingstenosis. Mild fusiform ectasia of the right cavernous carotid segment. Thedistal cervical, petrous, cavernous and supraclinoidinternal carotidarteries are otherwise unremarkable. Incidental note is made ofpneumatization of the inferior aspect of the left anterior clinoid as wellas the basisphenoid, right more than left, in the regions of the leftparaclinoid and right distal petrous ICA segments, respectively.Theanterior and middle cerebral arteries are unremarkable. No evidence of filling defect in the major dural venous sinuses. CT ANGIOGRAM NECK: Classic three-vessel arch anatomy identified. Atherosclerotic calcificationof the aortic arch extending to the great vessel ostia without significantluminal narrowing. Moderatestenosis of the right subclavian origin fromthe innominate. Remainder of the subclavian arteries demonstrate normalcontrast opacification. Medialization of the proximal right and mid left cervical ICA segments withbrief retropharyngeal course. Atherosclerosis of the proximal right ICAsegment with mildluminal narrowing. There is normal opacification of thecommon carotid arteries and cervical courses of the bilateral internalcarotid arteries. The vertebral artery ostia patent. No flow- limiting stenosis is identifiedwithin the cervical segments. ? The visualized lung fair down to moderate emphysematous changes andinterlobular septal thickening which may reflect scarring. [facility], Radiant Results Inft User - 11/03/2020 7:08 PM CSTCT STROKE ANGIOGRAM HEAD, CT STROKE ANGIOGRAM NECKHISTORY: Female 75 years Acute Stroke Rad: please obtain POCT creatinineprior to CTA head/neckCOMPARISON: NoneTECHNIQUE:. CT angiographic images of the head and neck were obtainedafter administration of IV contrast. Multiplanar reformats includingmaximum intensity projection images submitted for review.FINDINGS:CTA HEAD:The PICA origin is visualized on the left. Right PICA AICA variant issuspected. Trace atherosclerosis of the right V4 vertebral artery segmentwithout flow-limiting stenosis. The basilar artery is normal in caliber.The superior cerebellar arteries are unremarkable. The posterior cerebralarteries are unremarkable. Atherosclerotic calcifications of the carotid siphons without flow-limitingstenosis. Mildfusiform ectasia of the right cavernous carotid segment. Thedistal cervical, petrous, cavernous and s upraclinoid internal carotidarteries are otherwise unremarkable. Incidental note is made ofpneumatization of the inferior aspect of the left anterior clinoid as wellas the basisphenoid, right more thanleft, in the regions of the leftparaclinoid and right distal petrous ICA segments, respectively.Theanterior and middle cerebral arteries are unremarkable.No evidence of filling defect in the major dural venous sinuses.CT ANGIOGRAM NECK:Classic three-vessel arch anatomy identified. Atherosclerotic calcificationof the aortic arch extending to the great vessel ostia without significantluminal narrowing.Moderate stenosis of the right subclavian origin fromthe innominate. Remainder of the subclavian markie morris demonstrate normalcontrast opacification.Medialization of the proximal right and mid left cervical ICA segments withbrief retropharyngeal course. Atherosclerosis of the proximal right ICAsegment with mild luminal narrowing. There is normal opacification of thecommon carotid arteries and cervical courses of the bilateral internalcarotid arteries. The vertebral artery ostia patent. No flow-limiting stenosis is identifiedwithin the cervical segments. The visualized lung fair down to moderate emphysematous changes andinterlobular septal thickening which may reflect scarring.IMPRESSIONNo proximal large vessel occlusion or flow-limiting intracranial stenosisidentified. 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 Otherwise,no flow-limiting extra cranial stenosis identified.[facility] [id number] 01:07:06 No proximal large vessel occlusion or flow- limiting intracranial stenosisidentified. 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 Otherwise,no flow-limiting extra cranial stenosis identified. CT STROKE ANGIOGRAM HEAD, CT STROKE ANGIOGRAM NECK HISTORY: Female 75 years Acute StrokeRad: please obtain POCT creatinineprior to CTA head/neck COMPARISON: None TECHNIQUE: . CT angiographic images of the head and neck were obtainedafter administration of IV contrast. Multiplanar reformats includingmaximum intensity projection images submitted for review. FINDINGS: CTA HEAD: The PICA origin is visualized on the left. Right PICA AICA variant issuspected. Trace atherosclerosis of the right V4 vertebral artery segmentwithout flow-limiting stenosis. The basilar artery is normal in caliber.T he superior cerebellar arteries are unremarkable. The posterior cerebralarteries are unremarkable. Atherosclerotic calcifications of the carotid siphons without flow-limitingstenosis. Mild fusiform ectasia of the right cavernous carotid segment. Thedistal cervical, petrous, cavernous and supraclinoidinternal carotidarteries are otherwise unremarkable. Incidental note is made ofpneumatization of theinferior aspect of the left anterior clinoid as wellas the basisphenoid, right more than left, in the regions of the leftparaclinoid and right distal petrous ICA segments, respectively.Theanterior and middle cerebral arteries are unremarkable. No evidence of filling defect in the major dural venous sinuses. CT ANGIOGRAM NECK: Classic three-vessel arch anatomy identified. Atherosclerotic calcificationof the aortic arch extending to the great vessel ostia without significantluminal narrowing. Moderatestenosis of the right subclavian origin fromthe innominate. Remainder of the subclavian arteries demonstrate normalcontrast opacification. Medialization of the proximal right and mid left cervical ICA segments withbrief retropharyngeal course. Atherosclerosis of the proximal right ICAsegment with mildluminal narrowing. There is normal opacification of thecommon carotid arteries and cervical courses of the bilateral internalcarotid arteries. The vertebral artery ostia patent. No flow-limiting stenosis is identifiedwithin the cervical segments. ? The visualized lung fair down to moderate emphysematous changes andinterlobular septal thickening which may reflect scarring. [facility], Radiant Results Inft User - 11/03/2020 7:08 PM CSTCT STROKE ANGIOGRAM HEAD, CT STROKE ANGIOGRAM NECKHISTORY: Female 75 years Acute Stroke Rad: please obtain POCT creatinineprior to CTA head/neckCOMPARISON: NoneTECHNIQUE:. CT angiographic images of the head and neck were obtainedafter administration of IV contrast. Multiplanar reformats includingmaximum intensity projection images submitted for review.FINDINGS:CTA HEAD:The PICA origin is visualized on the left. Right PICA AICA variant issuspected. Trace atherosclerosis of the right V4 vertebral artery segmentwithout flow-limiting stenosis. The basilar artery is normal in caliber.The superior cerebellar arteries are unremarkable. The posterior cerebralarteries are unremarkable. Atherosclerotic calcifications of the carotid siphons without flow-limitingstenosis. Mildfusiform ectasia of the right cavernous carotid segment. Thedistal cervical, petrous, cavernous and s upraclinoid internal carotidarteries are otherwise unremarkable. Incidental note is made ofpneumatization of the inferior aspect of the left anterior clinoid as wellas the basisphenoid, right more thanleft, in the regions of the leftparaclinoid and right distal petrous ICA segments, respectively.Theanterior and middle cerebral arteries are unremarkable.No evidence of filling defect in the major dural venous sinuses.CT ANGIOGRAM NECK:Classic three-vessel arch anatomy identified. Atherosclerotic calcificationof the aortic arch extending to the great vessel ostia without significantluminal narrowing.Moderate stenosis of the right subclavian origin fromthe innominate. Remainder of the subclavian markie morris demonstrate normalcontrast opacification.Medialization of the proximal right and mid left cervical ICA segments withbrief retropharyngeal course. Atherosclerosis of the proximal right ICAsegment with mild luminal narrowing. There is normal opacification of thecommon carotid arteries and cervical courses of the bilateral internalcarotid arteries. The vertebral artery ostia patent. No flow-limiting stenosis is identifiedwithin the cervical segments. The visualized lung fair down to moderate emphysematous changes andinterlobular septal thickening which may reflect scarring.IMPRESSIONNo proximal large vessel occlusion or flow-limiting intracranial stenosisidentified. 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 Otherwise,no flow-limiting extra cranial stenosis identified.[facility] 2020-11-04 00:47:00 Test Item Value Reference Range Interpretation Comments CK (test code = 4860741202) 146 U/L 33-194 Lab Interpretation (test code = Normal 68591-2) [facility] WO [id number] 00:26:00 Hypodensities noted in the right valentin radiata and right basal ganglia maybe chronic but are technically age indeterminate. Suggest clinicalcorrelation and further evaluation with MRI, as clinically directed. Partially calcified extra- axial lesions identified in the inferior rightfrontal region and left temporal occipital junction, likely calcifiedmeningiomas.CT HEAD WITHOUT CONTRAST HISTORY: Neurodeficit, acute, stroke suspected COMPARISON: ?None. TECHNIQUE: CT axial images of the head were obtained from vertex to skullbase. Multiplanar reformats were submitted for review. FINDINGS: Calcified nodular right inferior frontal extra-axial lesion in the regionof sylvian fissure noted measuring 2.5x 2.0 x 2.7 cm (AP X TV X CC). Thisis associated with hyperostosis of the underlying calvarium and is favoredto reflect a essentially calcified meningioma. Similar appearingextra-axial lesion at the left temporoparietal junction with smoothscalloping/remodeling of the overlying calvarium measuring 2.9x 2.2 x 2.3(AP X TV X CC) also favored to reflect meningioma. The ventricles and sulci are normal insize and configuration. Nointracranial abnormality such as hemorrhage, midline shift, hydrocephalusor extra axial fluid collection is appreciated. The basal cisterns arepatent. Hypodensities in the right valentin radiata and right basal ganglia.Hypodensity in the right subinsular/external capsular region, likelyreflecting remote lacunar infarct. The calvarium and skull base are intact.Osseous protuberance arising from the midline frontal calvarium measuring2.5 x 0.7 cm likely reflecting osteoma. The paranasal sinuses and mastoidair cells are clear. [facility], Radiant Results Inft User - 11/03/2020 6:27 PM CSTCT HEAD WITHOUT CONTRASTHISTORY: Neuro deficit, acute, stroke suspected COMPARISON: None.TECHNIQUE: CT axial images of the head were obtained from vertex to skullbase. Multiplanar reformats were submitted for review.FINDINGS:Calcified nodular right inferior frontal extra-axial lesion in the regionof sylvian fissure noted measuring 2.5 x 2.0 x 2.7 cm (AP X TV X CC). Thisis associated with hyperostosis of the underlying calvarium and is favoredto reflect a essentially calcified meningioma. Similar appearingextra-axial lesion at the left temporoparietal junction with smoothscalloping/remodeling of the overlying calvarium measuring 2.9 x 2.2 x 2.3(AP X TV X CC) also favored to reflect meningioma.The ventricles and sulci are normal in size and configuration. Nointracranial abnormality such as hemorrhage, midline shift, hydrocephalusor extra axial fluid collection is appreciated. The basal cisterns arepatent.Hypodensities in the right valentin radiata and right basal ganglia.Hypodensity in the right subinsular/external capsular region, likelyreflecting remote lacunar infarct. The calvarium and skull base are intact.Osseous protuberance arising from the midline frontal calvarium measuring2.5 x 0.7 cm likely reflecting osteoma. The paranasal sinuses and mastoidair cells are clear.IMPRESSIONHypodensities noted in the right valentin radiata and right basal ganglia maybe chronic but are technically age indeterminate. Suggest clinicalcorrelation and further evaluation with MRI, as clinically directed.Partially calcified extra-axial lesions identified in the inferior rightfrontal region and left temporal occipital junction, likely calcifiedmeningiomas.[facility] 2020-11-04 00:25:00 Test Item Value Reference Range Interpretation Comments APTT Patient (test See_Comment [Automat ed code = 3173-2) message] The system which generated this result transmitted reference range : 23 - 38 Seconds . The reference range was not used to interpr et this result as normal/abnormal . SHANIA (test code = SHANIA) The [facility] patient population mean normal value for aPTT is 30 seconds. Lab Interpretation Normal (test code = 76820-2) [facility] / [facility] - Code [id number] 00:23:00 Test Item Value Reference Range Interpretation Comments PROTIME PATIENT (test See_Comment [Auto mated message] code = 5964-2) The system wh ich generated this result transmitted ref erence range: 12.0 - 1 4.7 Seconds. The re ference range was not u sed to interpret this result as normal/abnor mal. INR (test code = 6301-6) Nor mal INR <1.1; Warfarin Therap eutic range 2.0 to 3. 0 or 2.5 to 3.5, dep ending upon the indica tions. Lab Interpretation (test Normal code = 29139-4) [facility] Code [id number] 00:17:00 Test Item Value Reference Range Interpretation Comments TROPONIN I (test 0.130 ng/mL See_Comment H [Automated code = 1991048615) message] The system which generated this result transmitted reference range : <=0.034. The reference range was not used to interpret this result as normal/abnormal . SHANIA (test code = Equal or Less than SHANIA) 0.034 ng/ml---Normal ?Note: Cardiac troponin begins to rise 3-4 hours after the onset of ischemia. Repeat in 4-6 hours if the sample was drawn within 3-4 hours of the onset of the symptom and found normal. Between 0.035 and 0.120 ng/mL--- Borderline. Questionable myocardial injury or necrosis ? ?Note: Serial measurement may be necessary to confirm or exclude the diagnosis of myocardial injury or necrosis; Clinical correlation (symptoms, EKGs, imaging studies, and others) required; Repeat in 4-6 hours if clinically indicated. ? Equal or Higher than 0.121 ng/mL---Abnormal. Myocardial Injury or Necrosis Likely ? Biotin has been reported to cause a negative bias, interpret results relative to patient's use of biotin. ? Lab Interpretation Abnormal (test code = 05183-8) [facility] NOW RAPID TESTING)2020-11-04 00:10:00 Test Item Value Reference Range Interpretation Comments SARS-CoV-2 Rapid ID NOW Not Detected Not Detected (test code = 26938-0) SHANIA (test code = SHANIA) ID NOW COVID-19 Assay is an isothermal nucleic acid amplification test intended for the qualitative detection of nucleic acid from SARS-CoV-2 viral RNA in nasopharyngeal (HOT STICK MAN) specimens. It is used under Emergency Use Authorization (EUA) by FDA. The limit of detection (LOD) of the assay is 125 Genome Equivalents/mL. A positive result is indicative of the presence of SARS-CoV-2 RNA. ?Clinical correlation with patient history and other diagnostic information is necessary to determine patient infection status. A negative (Not Detected) result does not preclude SARS-CoV-2 infection. In patients with clinical symptoms and other tests that are consistent with SARS-CoV-2 infection, negative results should be treated as presumptive negative and a new specimen should be tested with alternative PCR molecular test. Invalid: Please collect a new specimen for repeat patient testing if clinically indicated. Lab Interpretation Normal (test code = 08993-9) [facility] Metabolic Panel (NA, K, CL, CO2, Glucose, BUN, Creatinine, CA) - Code [id number] 00:06:00 Test Item Value Reference Range Interpretation Comments NA (test code = 137 mmol/L 135-145 0910254281) K (test code = 3.1 mmol/L 3.5-5 L 6719772230) CL (test code = 91 mmol/L 98-108 L 5956337777) CO2 TOTAL (test code = 36 mmol/L 23-31 H 4977759321) AGAP (test code = 2-16 5431894511) BUN (test code = 30 mg/dL 7-23 H 6325487984) GLUCOSE (test code = 109 mg/dL 70-110 6762816874) CREATININE (test code = 1.70 mg/dL 0.5-1.04 H 5085441008) CALCIUM (test code = 9.4 mg/dL 8.6-10.6 8094094722) eGFR Calculation mL/min/1.73m2 (Non-) (test code = 7986786607) eGFR Calculation mL/min/1.73m2 () (test code = 1272850820) SHANIA (test code = SHANIA) Association of Glomerular Filtration Rate (GFR) and Staging of Kidney Disease* + --+ --+ ------+| GFR (mL/min/1.73 m2) ?| With Kidney Damage ?| ?Without Kidney Damage+ --------+ --------+ +| ?>90 ?| ?Stage one ?| ? Normal ?+ ---+ ---+ -------+| ?60-89 ?| ?Stage two ?| ? Decreased GFR ? + --+ --+ ------+| ?30-59 ?| ?Stage three ?| ? Stage three ? + --+ --+ ------+| ?15-29 ?| ?Stage four ? | ? Stage four ?+ ---+ ---+ -------+| ?<15 (or dialysis) ? ?| ?Stage five ? | ? Stage five ?+ ---+ ---+ -------+ *Each stage assumes the associated GFR level has been in effect for at least three months. ?Stages 1 to 5, with or without kidney disease, indicate chronic kidney disease. Notes: Determination of stages one and two (with eGFR >59mL/min/1.73 m2) requires estimation of kidney damage for at least three months as defined by structural or functional abnormalities of the kidney, manifested by either:Pathological abnormalities or Markers of kidney damage (including abnormalities in the composition of the blood or urine or abnormalities in imaging tests). Lab Interpretation Abnormal (test code = 80176-1) [facility] without Diff - Code [id number] 23:55:00 Test Item Value Reference Range Interpretation Comments WBC (test code = 6690-2) See_Comment H [A utomated message] The system [employer] generated this result transmit maria c reference range : 4.30 - 11.10 10*3/?L. The reference range was not used to interpret this result as normal/abnormal . RBC (test code = 789-8) See_Comment [Au tomated message] The system [employer] generated this result transmit maria c reference range : 3.93 - 5.25 10* 6/?L. The reference r maría was not used to interpret this result as normal/abnormal . HGB (test code = 718-7) 13.4 g/dL 11.6-15 HCT (test code = 4544-3) 41.4 % 35.7-45.2 MCH (test code = 785-6) 29.3 pg 25.9-32.8 MCV (test code = 787-2) 90.6 fL 80.6-95.5 MCHC (test code = 786-4) 32.4 g/dL 31.6-35.1 PLT (test code = 777-3) See_Comment H [Au tomated message] The system [employer] generated this result transmit maria c reference range : 166 - 358 10*3/?L. The reference range was not used to interpret this result as normal/abnormal . MPV (test code = 10.4 fL 9.5-12.9 58517-2) RDW-CV (test code = 13.6 % 12-15.5 788-0) RDW-SD (test code = 45.1 fL 39-49.9 99128-9) NRBC x10^3 (test code = <0.01 See_Comment [Au tomated message] [id number]) The system [employer] generated this result transmit maria c reference range : 10*3/?L. The reference range was not used to interpret this result as normal/abnormal . NRBC/100 WBC (test code See_Comment [Au tomated message] = 4949775145) The system [employer] generated this result transmit maria c reference range : 0.0 - 10.0 /100 WBC s. The reference r maría was not used to interpret this result as normal/abnormal . IPF % (test code = 8906764677) Lab Interpretation (test Abnormal code = 09124-3) [facility]2020-11-03 23:36:00 Test Item Value Reference Range Interpretation Comments POCT GLU (test code = 4095602004) 123 mg/dL 70-110 H Lab Interpretation (test code = Abnormal 36002-9) [facility]"
[2022-04-06] MEDS ORDERED: HYDRALAZINE HCL 20 MG/ML VIAL IV PRN (16:28)
[2022-04-06] MEDS: FUROSEMIDE 40 MG/4 ML VIAL IV SCH (16:40)
--- NOTE | 2022-04-06 19:08 | CON ---
Date of Consultation: 04/06/2022 Reason For Consultation: Suspected heart failure. History Of Present Illness: A 76-year-old female with history of diastolic heart failure, COPD, hype rtension, dyslipidemia, steep apnea, presented to the emergency room with shortness of breath, for th e last 3-4 days having progressive shortness of breath, but without any chest pain, and she has signi ficant orthopnea, cannot lie down flat with some lower extremity edema, presented to the emergency ro om. Evaluation revealed that she is having some congestive heart failure symptoms, started on IV Las ix. Denies having any chest pain. Past Medical History: As outlined above in the HPI. Medications: Refer to reconciliation sheet for detailed list. Allergies: NO KNOWN DRUG ALLERGIES. Family History: No premature coronary artery disease. There is a history of lung cancer among her s iblings. Social History: Does not smoke or drink. Does not use any drugs. Review of Systems: All systems reviewed and they were negative except for what mentioned in HPI. Physical Examination: Vital Signs: Temperature is 97.9, pulse 99, breathing at 22, blood pressure is 217/108. General: Pleasant elderly female, in no distress. Head and Neck: Pupils are equal, reactive to light. Intact eye movements. No JVD. No cervical lym phadenopathy. Neck is supple. Thyroid is not enlarged. Lungs: Clear to auscultation bilaterally. No rhonchi, wheezing, or crackles. No accessory muscle u se. Heart: Regular rate and rhythm. No extra sounds. Abdomen: Soft, nontender. Bowel sounds positive. No organomegaly. No masses or hernia. No rigidi ty or rebound. Extremities: No clubbing or cyanosis. Intact pulses. Skin: No rash. Neurologic: Alert, awake, oriented x3. No acute focal deficits appreciated. Investigations: Troponin is 26. Creatinine is 0.92. Hemoglobin 13.2, white blood cell count is 5.7. NT-proBNP was 3511. Assessment And Recommendations: 1.Acute on chronic diastolic heart failure exacerbation. EF was normal per last echo. Continue Las ix 40 mg IV q.12 hours. Monitor BUN, creatinine, electrolytes, and low-salt diet. Strict I and O me asurements. 2.Hypertensive emergency resulting in acute decompensated heart failure. Recommend to start the pat ient on Norvasc 5 mg daily along with lisinopril 10 mg daily and adjust further to get blood pressure under better control. 3.Questionable pneumonia. The patient is being managed with antibiotics. /AVNI Voice ID: [id number] Report ID: [id number]
[2022-04-06] MEDS: AMLODIPINE 5 MG TAB PO SCH (21:25)
[2022-04-06] MEDS: lisinopriL 10 MG TAB PO SCH (21:27)
[2022-04-07] MEDS ORDERED: ALBUTEROL 2.5 MG/3 ML NEB SOL NEB ONE (02:05)
[2022-04-07] MEDS ORDERED: ALBUTEROL 2.5 MG/3 ML NEB SOL ONE (02:19)
[2022-04-07 03:25] LABS: Absolute Lymphocytes (CBC) 2.8 K/uL (0.7-4.9); Hematocrit 37.7 % (36.0-45.0); Lymphocytes % 39.8 % (15.3-44.8); MCV 92.5 fL (80-100); MPV 8.5 fL (7.6-11.3); RBC Red Blood Cell Count 4.07 M/uL (3.86-4.86)
[2022-04-07 03:46] LABS: Albumin 3.2 g/dL (3.4-5.0); Bilirubin Total 0.7 mg/dL (0.2-1.0); Magnesium 1.8 mg/dL (1.8-2.4); Phosphorus 2.4 mg/dL (2.5-4.9); Potassium 3.7 mmol/L (3.5-5.1); Protein, Total 6.6 g/dL (6.4-8.2)
[2022-04-07] MEDS: dexAMETHasone 10 MG/ML VIAL IV SCH (10:03)
[2022-04-07] MEDS: AMLODIPINE 5 MG TAB PO SCH (10:04)
[2022-04-07] MEDS: FUROSEMIDE 40 MG/4 ML VIAL IV SCH ×2 (10:04→17:23)
[2022-04-07] MEDS: ENOXAPARIN 40 MG/0.4 ML SQ SCH (10:04)
[2022-04-07] MEDS: GUAIFENESIN 600 MG SA TAB PO PRN ×2 (10:05→22:50)
[2022-04-07] MEDS: DOXYCYCLINE 100 MG in NA CHLORIDE 0.9% 100 ML IVPB SCH ×2 (10:35→20:40)
[2022-04-07] MEDS: CEFTRIAXONE 1,000 MG in NA CHLORIDE 0.9% 50 ML IVPB SCH (11:31)
--- NOTE | 2022-04-07 11:38 | P.CNS ---
Date of Consult: 04/07/22 Reason for Consult: COPD exacerbation coronavirus infection Chief Complaint: Shortness of breath History of Present Illness: Patient is 76 years of patient is 76 years of age past medical history of diastolic heart failure COPD bipolar disorders admitted to the hospital with worsening dyspnea and diagnosed with congestive heart failure patient has oxygen at home uses bronchodilators have been complaining of some GI symptoms Allergies No Known Drug Allergies Allergy (Verified 09/22/19 17:26) Unknown Home Medications: Divalproex Sodium [Depakote] 500 mg PO BID 11/27/14 Pravastatin Sodium [Pravachol] 20 mg PO DAILY 11/27/14 Metoprolol Succinate [Toprol Xl*] 50 mg PO DAILY #30 tab 11/30/14 Omeprazole [Prilosec] 40 mg PO DAILY 05/25/15 Amlodipine [Norvasc*] 5 mg PO DAILY 06/11/18 Levothyroxine Sodium [Levoxyl] 100 mcg PO [id number] 06/11/18 Losartan Potassium [Cozaar*] 50 mg PO DAILY 06/11/18 Albuterol Sulfate [Proair Hfa] 1 - 2 puff IH Q4HP PRN 09/22/19 Solifenacin Succinate 1 tab PO DAILY 09/22/19 Cholecalciferol (Vitamin D3) [Children's Vitamin D3] 1,000 unit PO DAILY #30 tab.chew 09/23/19 Ergocalciferol (Vitamin D2) [Drisdol] 50,000 unit PO EVERY 7TH DAY #8 capsule 09/23/19 Furosemide [Lasix] 40 mg PO DAILY #30 tab 03/26/22 Spironolactone [Aldactone*] 25 mg PO BID #60 tab 03/26/22 - Past Medical/Surgical History Diabetic: No -: COPD -: HTN -: BRONCHITIS -: EMPHYSEMA -: HLD -: BIPOLAR DISORDER -: CLAUSTROPHOBIA -: SLEEP APNEA -: HYPOTHYROIDISM -: GERD -: CHF -: Arthritis -: APPY -: LILI - Family History Mother Medical History: Heart disease, Lung disease Father Medical History: Cancer Brother Medical History: Lung disease, Cancer Sister Medical History: Lung disease, Cancer Notes: Melanoma - Social History Smoking Status: Unknown if ever smoked Alcohol use: No CD- Drugs: No Caffeine use: Yes Review of Systems General: Weakness Respiratory: Cough, Shortness of Breath Gastrointestinal: Nausea, Diarrhea Physical Examination Temp Pulse Resp BP Pulse Ox 97.5 F 66 20 148/63 H 98 04/07/22 08:00 04/07/22 10:04 04/07/22 08:00 04/07/22 10:04 04/07/22 08:00 General: Alert, In no apparent distress, Mild distress Laboratory Data (last 24 hrs) 04/06/22 12:43: WBC 5.7 D, Hgb 13.2, Hct 38.7 D, Plt Count 341 04/06/22 11:10: PT 10.6, INR 0.96 04/06/22 11:10: Sodium 139, Potassium 4.0, BUN 14, Creatinine 0.92, Glucose 93 - Problems (1) 2019 novel coronavirus-infected pneumonia (NCIP) Current Visit: Yes Status: Acute Plan: Patient 76 years of age multiple medical problems with a history of COPD admitted with worsening dyspnea more prominent interstitial changes/also has prominent GI symptoms positive for coronavirus/BNP is elevated/vital signs are stable probably has a combination of heart failure COPD and coronavirus pneumonia agree with steroids bronchodilators last echo was done in 2019 possible diastolic dysfunction/plan for discharge home tomorrow on Decadron/can DC doxycycline p.o. levofloxacin possible follow-up with me in 2 weeks
[2022-04-07] MEDS ORDERED: REMDESIVIR (EUA) 200 MG in NA CHLORIDE 0.9% 250 ML IV ONE (13:00)
[2022-04-07] MEDS: BENZONATATE 100 MG CAP PO PRN (17:23)
--- NOTE | 2022-04-07 20:02 | P.PN ---
Subjective Date of Service: 04/07/22 Chief Complaint: Shortness of breath This morning, she complains of significant shortness of breath. She is actively coughing throughout my interview with her. SpO2 is 94 % on 3 L NC. She states that she has never had COVID before and that she is unvaccinated. Review of Systems 10-point ROS is otherwise unremarkable Respiratory: Cough, Shortness of Breath Physical Examination - Vital Signs Temperature: 98.3 F Blood Pressure: 128/85 Pulse: 98 Respirations: 24 Pulse Ox (%): 96 Assessment And Plan - Plan # Acute on Chronic Decompensated Diastolic Congestive Heart Failure with Preserved Ejection Fraction (LVEF 56 %) # Suspect Flash Pulmonary Edema secondary to Hypertensive Emergency, now improved with Nitroglycerin - Consult Cardiology and notified Dr. Herrmann - recommendations appreciated - Transthoracic echocardiogram pending - Diuresis with IV furosemide for today - NT-Pro BNP = 3,511 - HS troponin = 26.1 - Daily weights - Strict I/O - Cardiac diet, 2 L fluid restriction, 2 g Na restriction # Sepsis likely secondary to Right Lower Lobe Pneumonia She met SIRS criteria based on HR > 90 bpm and RR > 20 breaths/min, and the suspected source is right lower lobe pneumonia. - Sepsis order set was initiated - Lactate = 0.9 - Blood cultures x 2 requested - Broad spectrum antibiotics started: Ceftriaxone + Doxycycline (chosen over azithromycin due to prolonged QTc interval [500 msec]) - In regards to fluids: - 30 mL/kg of IV fluids was not administered given SBP > 90, MAP > 65 and concern for decompensated heart failure # Concern for Superimposed COVID-19 Pneumonia - Previously with appropriate SpO2 readings on room air - Now with SpO2 of 94 % on 3 L NC - Discussed with Dr. Busch, will start dexamethasone and remdesivir - Encouraged incentive spirometry # Chronic Obstructive Pulmonary Disease # Asthma # Hypothyroidism # Psoriasis # Bipolar Disorder - She is unable to tell us her home meds - Continue home medications once verified Sean Perez MD
[2022-04-07] MEDS: lisinopriL 10 MG TAB PO SCH (20:40)
[2022-04-07 21:58] LABS: Urine Bilirubin Negative (Negative); Urine Blood Negative (Negative); Urine Clarity Clear (Clear); Urine Color Yellow (Yellow); Urine Glucose Negative (Negative); Urine Protein Negative (Negative); Urine Urobilinogen 0.2 mg/dL (0.2-1.0); Urine pH 5.5 (5.0-7.0)
[2022-04-08] MEDS: BENZONATATE 100 MG CAP PO PRN ×4 (01:44→21:43)
[2022-04-08 03:44] LABS: Absolute Lymphocytes (CBC) 1.3 K/uL (0.7-4.9); Hematocrit 38.2 % (36.0-45.0); Lymphocytes % 17.9 % (15.3-44.8); MCV 92.6 fL (80-100); MPV 8.8 fL (7.6-11.3); RBC Red Blood Cell Count 4.13 M/uL (3.86-4.86)
[2022-04-08 03:53] LABS: Albumin 3.1 g/dL (3.4-5.0); Bilirubin Total 0.5 mg/dL (0.2-1.0); Protein, Total 6.8 g/dL (6.4-8.2)
--- NOTE | 2022-04-08 05:51 | PN ---
Ms. Montes De Oca was seen by Dr. Flores on 04/06/2022. The patient had come in with COVID pneumonia. Hyp ertensive. She is presently on lisinopril, Norvasc, hydralazine, and remdesivir for her COVID. She is being seen by Dr. Carcamo. Echocardiogram showed diastolic congestive heart failure. No wall mot ion abnormalities otherwise. I think we need to continue her present regimen, aim for better blood p ressure control. No further cardiac workup recommended. ADEEL/AVNI Voice ID: [id number] Report ID: [id number]
--- NOTE | 2022-04-08 06:25 | EKG ---
Test Date: 2022-04-06 Test Time: 11:25:30 Instrument Assembly Supervisor: ALBARO MEASUREMENT RESULTS: Intervals: Rate: 77 PA: 154 QRSD: 86 QT: 442 QTc: 500 Crawford: P: 67 PA: 154 QRS: 14 T: 24 INTERPRETIVE STATEMENTS: Sinus rhythm with marked sinus arrhythmia Prolonged QT Abnormal ECG Compared to ECG 03/25/2022 14:55:51 Prolonged QT interval now present Atrial fibrillation no longer present T-wave abnormality no longer present Electronically Signed On 04-08-22 06:22:47 CDT by Alhaji Herrmann
[2022-04-08] MEDS: CEFTRIAXONE 1,000 MG in NA CHLORIDE 0.9% 50 ML IVPB SCH (09:02)
[2022-04-08] MEDS: AMLODIPINE 5 MG TAB PO SCH (09:04)
[2022-04-08] MEDS: GUAIFENESIN 600 MG SA TAB PO PRN (09:04)
[2022-04-08] MEDS: FUROSEMIDE 40 MG/4 ML VIAL IV SCH ×2 (09:05→17:16)
[2022-04-08] MEDS: ENOXAPARIN 40 MG/0.4 ML SQ SCH (09:06)
[2022-04-08] MEDS: dexAMETHasone 10 MG/ML VIAL IV SCH (09:11)
[2022-04-08] MEDS: DOXYCYCLINE 100 MG in NA CHLORIDE 0.9% 100 ML IVPB SCH ×2 (09:40→21:42)
[2022-04-08] MEDS: REMDESIVIR (EUA) 100 MG in NA CHLORIDE 0.9% 250 ML IV SCH (10:45)
--- NOTE | 2022-04-08 11:17 | P.PN ---
Subjective Date of Service: 04/08/22 Chief Complaint: COPD exacerbation pneumonia and positive for COVID Subjective: Improving (Patient is improving feeling better still weak complaining of cough and shortness of breath) Review of Systems General: Weakness Respiratory: Cough, Shortness of Breath Physical Examination - Vital Signs Temperature: 98.1 F Blood Pressure: 137/60 Pulse: 68 Respirations: 20 Pulse Ox (%): 99 - Physical Exam General: Alert, Oriented x3 Respiratory: Expiratory wheezes Cardiovascular: No edema, Regular rate/rhythm, Normal S1 S2 Assessment And Plan - Current Problems (Diagnosis) (1) 2019 novel coronavirus-infected pneumonia (NCIP) Current Visit: Yes Status: Acute Plan: Patient is clinically improving vital signs are stable oxygenation satisfactory labs and chemistries reviewed can change to p.o. meds p.o. Decadron plus p.o. antibiotic patient's white count is normal cultures are negative can be changed over to p.o. levofloxacin she does have a right lower lobe infiltrate
--- NOTE | 2022-04-08 14:15 | RAD REPORT ---
EXAM DESCRIPTION: RAD - Chest Single View - 04/08/2022 1:54 pm CLINICAL HISTORY: Pneumonia COMPARISON: Chest Single View dated 04/06/2022; Chest Single View dated 03/25/2022; Chest Single View d ated 09/22/2019; CHEST SINGLE VIEW dated 05/25/2015 FINDINGS: Lines: None. Lungs: Diffuse prominence of the pulmonary interstitium. Pleural: No significant pleural effusions or pneumothorax. Cardiac: Cardiomegaly. Bones: No acute fractures. Other: IMPRESSION: Prominence of the pulmonary interstitium suggesting edema. No definite evidence of a sup erimposed pneumonia.
--- NOTE | 2022-04-08 19:48 | P.PN ---
Subjective Date of Service: 04/08/22 Chief Complaint: COPD exacerbation pneumonia and positive for COVID This morning, she complains of significant shortness of breath, particularly with exertion. Her cough seems to have improved somewhat compared to yesterday. SpO2 is 98 % on 4 L NC. Review of Systems 10-point ROS is otherwise unremarkable Respiratory: Cough, Shortness of Breath, SOB with Excertion Physical Examination - Vital Signs Temperature: 98.0 F Blood Pressure: 150/82 Pulse: 78 Respirations: 24 Pulse Ox (%): 97 Assessment And Plan - Plan PHYSICAL EXAMINATION: General: Alert, In no apparent distress HEENT: Atraumatic, PERRLA, Mucous membr. moist/pink, EOMI, Sclerae nonicteric Neck: Supple, 2+ carotid pulse no bruit, JVD minimally distended Respiratory: SpO2 98 % on 4 L. Crackles/rales Cardiovascular: Regular rate/rhythm, Normal S1 S2, No gallops, No rubs, No murmurs, Edema (1+ pitting lower extremity edema) Gastrointestinal: Normal bowel sounds, Soft and benign, Non-distended, No tenderness, No rebound, No guarding Musculoskeletal: No tenderness Integumentary: No rashes Neurological: Normal gait, Normal speech, Normal strength at 5/5 x4 extr, Normal tone, Normal affect Lymphatics: No axilla or inguinal lymphadenopathy # Acute on Chronic Decompensated Diastolic Congestive Heart Failure with Preserved Ejection Fraction (LVEF 56 %) # Suspect Flash Pulmonary Edema secondary to Hypertensive Emergency, now improved with Nitroglycerin - Consult Cardiology and notified Dr. Herrmann - recommendations appreciated - Transthoracic echocardiogram pending - Diuresis with IV furosemide for today - NT-Pro BNP = 3,511 - HS troponin = 26.1 - Daily weights - Strict I/O - Cardiac diet, 2 L fluid restriction, 2 g Na restriction # Sepsis likely secondary to Right Lower Lobe Pneumonia She met SIRS criteria based on HR > 90 bpm and RR > 20 breaths/min, and the suspected source is right lower lobe pneumonia. - Sepsis order set was initiated - Lactate = 0.9 - Blood cultures x 2 requested - Broad spectrum antibiotics started: Ceftriaxone + Doxycycline (chosen over azithromycin due to prolonged QTc interval [500 msec]) - In regards to fluids: - 30 mL/kg of IV fluids was not administered given SBP > 90, MAP > 65 and concern for decompensated heart failure # Concern for Superimposed COVID-19 Pneumonia - Previously with appropriate SpO2 readings on room air - Now with SpO2 of 98 % on 4 L NC - Discussed with Dr. Busch, will start dexamethasone and remdesivir (day 2 of 5) - Encouraged incentive spirometry # Chronic Obstructive Pulmonary Disease # Asthma # Hypothyroidism # Psoriasis # Bipolar Disorder - She is unable to tell us her home meds - Continue home medications once verified Sean Perez MD Plan to discharge in: Greater than 2 days
[2022-04-08] MEDS ORDERED: FAMOTIDINE 20 MG TAB PO ONE (21:34)
[2022-04-08] MEDS: lisinopriL 10 MG TAB PO SCH (21:43)
[2022-04-09 03:53] LABS: Absolute Lymphocytes (CBC) 1.4 K/uL (0.7-4.9); Hematocrit 36.6 % (36.0-45.0); MCV 93.2 fL (80-100); MPV 8.9 fL (7.6-11.3); RBC Red Blood Cell Count 3.93 M/uL (3.86-4.86)
[2022-04-09 04:06] LABS: Albumin 3.1 g/dL (3.4-5.0); Bilirubin Total 0.4 mg/dL (0.2-1.0); Protein, Total 6.4 g/dL (6.4-8.2)
--- NOTE | 2022-04-09 08:08 | RAD REPORT ---
EXAM DESCRIPTION: RAD - Chest Single View - 04/09/2022 7:00 am CLINICAL HISTORY: Pneumonia COMPARISON: Chest Single View dated 04/08/2022; Chest Single View dated 04/06/2022; Chest Single View dated 03/25/2022; Chest Single View dated 09/22/2019 FINDINGS: Lines: None. Lungs: Similar prominence of view pulmonary interstitium. Pleural: No significant pleural effusions or pneumothorax. Cardiac: Cardiomegaly. Bones: No acute fractures. Other: IMPRESSION: No significant change from prior. Bilateral interstitial prominence and mild basilar opa cities likely reflecting edema with or without pneumonia.
[2022-04-09] MEDS: REMDESIVIR (EUA) 100 MG in NA CHLORIDE 0.9% 250 ML IV SCH (09:28)
[2022-04-09] MEDS: dexAMETHasone 10 MG/ML VIAL IV SCH (09:34)
[2022-04-09] MEDS: FUROSEMIDE 40 MG/4 ML VIAL IV SCH ×2 (09:35→17:38)
[2022-04-09] MEDS: ENOXAPARIN 40 MG/0.4 ML SQ SCH (09:36)
[2022-04-09] MEDS: AMLODIPINE 5 MG TAB PO SCH (09:36)
[2022-04-09] MEDS: GUAIFENESIN 600 MG SA TAB PO PRN (10:15)
[2022-04-09] MEDS: BENZONATATE 100 MG CAP PO PRN ×2 (10:15→22:11)
--- NOTE | 2022-04-09 12:03 | P.PN ---
Subjective Date of Service: 04/09/22 Chief Complaint: COPD exacerbation pneumonia and positive for COVID This morning, she states that her shortness of breath is gradually improving, but her cough has been persistent. SpO2 is 98 % on 3 L NC. Review of Systems 10-point ROS is otherwise unremarkable Respiratory: Cough, SOB with Excertion Physical Examination - Vital Signs Temperature: 97.4 F Blood Pressure: 172/61 Pulse: 71 Respirations: 21 Pulse Ox (%): 99 Assessment And Plan - Plan PHYSICAL EXAMINATION: General: Alert, In no apparent distress HEENT: Atraumatic, PERRLA, Mucous membr. moist/pink, EOMI, Sclerae nonicteric Neck: Supple, 2+ carotid pulse no bruit, JVD minimally distended Respiratory: SpO2 98 % on 3 L. Crackles/rales Cardiovascular: Regular rate/rhythm, Normal S1 S2, No gallops, No rubs, No murmurs, Edema (1+ pitting lower extremity edema) Gastrointestinal: Normal bowel sounds, Soft and benign, Non-distended, No tenderness, No rebound, No guarding Musculoskeletal: No tenderness Integumentary: No rashes Neurological: Normal gait, Normal speech, Normal strength at 5/5 x4 extr, Normal tone, Normal affect Lymphatics: No axilla or inguinal lymphadenopathy # Acute on Chronic Decompensated Diastolic Congestive Heart Failure with Preserved Ejection Fraction (LVEF 56 %) # Suspect Flash Pulmonary Edema secondary to Hypertensive Emergency, now improved with Nitroglycerin - Consult Cardiology and notified Dr. Herrmann - recommendations appreciated - Transthoracic echocardiogram pending - Diuresis with IV furosemide for today - NT-Pro BNP = 3,511 - HS troponin = 26.1 - Daily weights - Strict I/O - Cardiac diet, 2 L fluid restriction, 2 g Na restriction # Sepsis likely secondary to Right Lower Lobe Pneumonia She met SIRS criteria based on HR > 90 bpm and RR > 20 breaths/min, and the suspected source is right lower lobe pneumonia. - Sepsis order set was initiated - Lactate = 0.9 - Blood cultures x 2 requested - Broad spectrum antibiotics started: Ceftriaxone + Doxycycline (chosen over azithromycin due to prolonged QTc interval [500 msec]) - Day 4 of 7 - In regards to fluids: - 30 mL/kg of IV fluids was not administered given SBP > 90, MAP > 65 and concern for decompensated heart failure # Concern for Superimposed COVID-19 Pneumonia - Previously with appropriate SpO2 readings on room air - Now with SpO2 of 98 % on 4 L NC - Discussed with Dr. Busch, will start dexamethasone and remdesivir (day 3 of 5) - Encouraged incentive spirometry # Chronic Obstructive Pulmonary Disease # Asthma # Hypothyroidism # Psoriasis # Bipolar Disorder - She is unable to tell us her home meds - Continue home medications once verified Sean Perez MD
[2022-04-09] MEDS: CEFTRIAXONE 1,000 MG in NA CHLORIDE 0.9% 50 ML IVPB SCH (13:00)
[2022-04-09] MEDS: DOXYCYCLINE 100 MG in NA CHLORIDE 0.9% 100 ML IVPB SCH ×2 (13:04→22:11)
[2022-04-09] MEDS: GUAIFENESIN 600 MG SA TAB PO SCH (17:39)
[2022-04-09] MEDS ORDERED: FAMOTIDINE 20 MG/2 ML VIAL IV PRN (20:54)
[2022-04-09] MEDS: lisinopriL 10 MG TAB PO SCH (22:11)
[2022-04-10] MEDS: GUAIFENESIN 600 MG SA TAB PO SCH ×3 (01:00→16:10)
[2022-04-10 03:48] LABS: Absolute Lymphocytes (CBC) 1.4 K/uL (0.7-4.9); Hematocrit 35.4 % (36.0-45.0); Lymphocytes % 13.9 % (15.3-44.8); MCV 90.8 fL (80-100); MPV 8.7 fL (7.6-11.3)
[2022-04-10 04:11] LABS: Albumin 2.9 g/dL (3.4-5.0); Bilirubin Total 0.4 mg/dL (0.2-1.0); Potassium 4.1 mmol/L (3.5-5.1); Protein, Total 6.1 g/dL (6.4-8.2)
--- NOTE | 2022-04-10 07:07 | ECHO ---
HEIGHT: 5 ft 2 in WEIGHT: 230 lb 0 oz DATE OF STUDY: 04/07/[address]: Sean Perez MD 2-DIMENSIONAL: YES M.MODE: YES DOPPLER: YES COLOR FLOW: YES TDS: PORTABLE: YES DEFINITY: BUBBLE STUDY: DIAGNOSIS: CONGESTIVE HEART FAILURE CARDIAC HISTORY: CATHERIZATION: SURGERY: PROSTHETIC VALVE: PACEMAKER: MEASUREMENTS (cm) DIASTOLIC (NORMALS) SYSTOLIC (NORMALS) IVSd 1.1 (0.6-1.2) LA Diam 3.7 (1.9-4.0) LVEF 69% LVIDd 4.8 (3.5-5.7) LVIDs 3.0 (2.0-3.5) %FS 38% LVPWd 1.1 (0.6-1.2) Ao Diam 3.0 (2.0-3.7) 2 DIMENSIONAL ASSESSMENT: RIGHT ATRIUM: NORMAL LEFT ATRIUM: NORMAL RIGHT VENTRICLE: NORMAL LEFT VENTRICLE: NORMAL TRICUSPID VALVE: NORMAL MITRAL VALVE: MITRAL ANNULAR CALCIFICATION PULMONIC VALVE: NORMAL AORTIC VALVE: SCLEROSIS PERICARDIAL EFFUSION: NONE AORTIC ROOT: NORMAL LEFT VENTRICULAR WALL MOTION: NORMAL DOPPLER/COLOR FLOW: NORMAL COMMENTS: MITRAL ANNULAR CALCIFICATION. AORTIC SCLEROSIS. NO STENOSIS. NORMAL EJECTION FRACTION. NO WALL MOTION ABNORMALITY. TECHNOLOGIST: ALVARO DAIVS
[2022-04-10 07:35] VITALS: BMI 40.7
[2022-04-10] MEDS: DOXYCYCLINE 100 MG in NA CHLORIDE 0.9% 100 ML IVPB SCH (08:57)
[2022-04-10] MEDS: REMDESIVIR (EUA) 100 MG in NA CHLORIDE 0.9% 250 ML IV SCH (09:00)
[2022-04-10] MEDS: ENOXAPARIN 40 MG/0.4 ML SQ SCH (09:01)
[2022-04-10] MEDS: AMLODIPINE 5 MG TAB PO SCH (09:01)
[2022-04-10] MEDS: CEFTRIAXONE 1,000 MG in NA CHLORIDE 0.9% 50 ML IVPB SCH (09:01)
[2022-04-10] MEDS: dexAMETHasone 10 MG/ML VIAL IV SCH (09:01)
[2022-04-10] MEDS: FUROSEMIDE 40 MG/4 ML VIAL IV SCH ×2 (09:02→16:10)
[2022-04-10] MEDS ORDERED: ACETAMINOPHEN 500 MG TAB PO PRN (11:28)
--- NOTE | 2022-04-10 12:57 | P.PN ---
Subjective Date of Service: 04/10/22 Chief Complaint: COPD exacerbation pneumonia and positive for COVID No acute events overnight. Reports a mild headache this morning. Shortness of breath is still present with ambulation. SpO2 is 99 % on 3.5 L NC. Review of Systems 10-point ROS is otherwise unremarkable Respiratory: Cough, SOB with Excertion Neurological: Other (headache, mild) Physical Examination - Vital Signs Temperature: 97.6 F Blood Pressure: 141/57 Pulse: 72 Respirations: 20 Pulse Ox (%): 95 Assessment And Plan - Plan PHYSICAL EXAMINATION: General: Alert, In no apparent distress HEENT: Atraumatic, PERRLA, Mucous membr. moist/pink, EOMI, Sclerae nonicteric Neck: Supple, 2+ carotid pulse no bruit, JVD minimally distended Respiratory: SpO2 99 % on 3.5 L. Crackles/rales. No wheezes or rhonchi. Cardiovascular: Regular rate/rhythm, Normal S1 S2, No gallops, No rubs, No murmurs, Edema (1+ pitting lower extremity edema) Gastrointestinal: Normal bowel sounds, Soft and benign, Non-distended, No tenderness, No rebound, No guarding Musculoskeletal: No tenderness Integumentary: No rashes Neurological: Normal gait, Normal speech, Normal strength at 5/5 x4 extr, Normal tone, Normal affect Lymphatics: No axilla or inguinal lymphadenopathy # Acute on Chronic Decompensated Diastolic Congestive Heart Failure with Preserved Ejection Fraction (LVEF 56 %) # Suspect Flash Pulmonary Edema secondary to Hypertensive Emergency, now improved with Nitroglycerin - Consult Cardiology and notified Dr. Herrmann - recommendations appreciated - Transthoracic echocardiogram = "mitral annular calcification. aortic sclerosis. no stenosis. normal ejection fraction. no wall motion abnormality" - Diuresis with IV furosemide for today - NT-Pro BNP = 3,511 - HS troponin = 26.1 - Daily weights - Strict I/O - Cardiac diet, 2 L fluid restriction, 2 g Na restriction # Sepsis likely secondary to Right Lower Lobe Pneumonia She met SIRS criteria based on HR > 90 bpm and RR > 20 breaths/min, and the suspected source is right lower lobe pneumonia. - Sepsis order set was initiated - Lactate = 0.9 - Blood cultures x 2 requested - Broad spectrum antibiotics started: Ceftriaxone + Doxycycline (chosen over azithromycin due to prolonged QTc interval [500 msec]) - Day 5 of 7 - In regards to fluids: - 30 mL/kg of IV fluids was not administered given SBP > 90, MAP > 65 and concern for decompensated heart failure # Concern for Superimposed COVID-19 Pneumonia # Chronic Respiratory Failure on Intermittent Home Oxygen (2 L NC) - Previously with appropriate SpO2 readings on room air - Now with SpO2 of 99 % on 3.5 L NC - Discussed with Dr. Bsuch, will start dexamethasone and remdesivir (day 4 of 5) - Encouraged incentive spirometry # Chronic Obstructive Pulmonary Disease # Asthma # Hypothyroidism # Psoriasis # Bipolar Disorder - Continue home medications once verified Sean Perez MD
[2022-04-10] MEDS: BENZONATATE 100 MG CAP PO PRN (16:10)
[2022-04-10] MEDS: lisinopriL 10 MG TAB PO SCH (21:02)
[2022-04-10] MEDS: DOXYCYCLINE 100 MG CAP PO SCH (21:02)
[2022-04-10] MEDS: FAMOTIDINE 20 MG TAB PO PRN (22:04)
[2022-04-11] MEDS: BENZONATATE 100 MG CAP PO PRN (01:22)
[2022-04-11] MEDS: GUAIFENESIN 600 MG SA TAB PO SCH ×3 (01:22→17:00)
[2022-04-11 06:44] LABS: Absolute Lymphocytes (CBC) 1.8 K/uL (0.7-4.9); Hematocrit 37.5 % (36.0-45.0); MCV 92.1 fL (80-100); MPV 8.9 fL (7.6-11.3); RBC Red Blood Cell Count 4.07 M/uL (3.86-4.86)
[2022-04-11 07:00] LABS: Bilirubin Total 0.4 mg/dL (0.2-1.0); Potassium 4.8 mmol/L (3.5-5.1); Protein, Total 6.2 g/dL (6.4-8.2)
[2022-04-11] MEDS: REMDESIVIR (EUA) 100 MG in NA CHLORIDE 0.9% 250 ML IV SCH (10:29)
[2022-04-11] MEDS: CEFTRIAXONE 1,000 MG in NA CHLORIDE 0.9% 50 ML IVPB SCH (10:29)
[2022-04-11] MEDS: FUROSEMIDE 40 MG/4 ML VIAL IV SCH ×2 (10:30→17:00)
[2022-04-11] MEDS: AMLODIPINE 5 MG TAB PO SCH (10:30)
[2022-04-11] MEDS: DOXYCYCLINE 100 MG CAP PO SCH ×2 (10:30→22:19)
[2022-04-11] MEDS: ENOXAPARIN 40 MG/0.4 ML SQ SCH (10:30)
[2022-04-11] MEDS: dexAMETHasone 10 MG/ML VIAL IV SCH (10:31)
[2022-04-11] MEDS: FAMOTIDINE 20 MG TAB PO PRN (15:39)
[2022-04-11] MEDS ORDERED: DIPHENHYDRAMINE 25 MG TAB/CAP PO PRN (17:14)
--- NOTE | 2022-04-11 17:46 | P.PN ---
Subjective Date of Service: 04/11/22 Chief Complaint: COPD exacerbation pneumonia and positive for COVID Subjective: No new changes Physical Examination - Vital Signs Temperature: 97.4 F Blood Pressure: 156/60 Pulse: 61 Respirations: 16 Pulse Ox (%): 97 - Physical Exam General: Alert HEENT: Atraumatic, Normocephalic Neck: Supple Respiratory: Diminished Cardiovascular: Regular rate/rhythm, Normal S1 S2 Gastrointestinal: Soft and benign Neurological: Normal speech Assessment And Plan - Plan # Acute on Chronic Decompensated Diastolic Congestive Heart Failure with Preserved Ejection Fraction (LVEF 56 %) # Suspect Flash Pulmonary Edema secondary to Hypertensive Emergency, now improved with Nitroglycerin Much improved symptomatology. Will continue present care with diuretic therapy, fluid restriction and 2 g sodium diet. Monitor input and output closely. Will follow trend of vitals and symptoms. # Sepsis likely secondary to Right Lower Lobe Pneumonia Much improved vitals and clinical symptoms. To continue empiric antibiotic of Rocephin and Doxycycline. Will follow symptoms closely. # Concern for Superimposed COVID-19 Pneumonia # Chronic Respiratory Failure on Intermittent Home Oxygen (2 L NC) There will continue requirement. will continue dexamethasone and remdesivir (day 5 of 5) - Encouraged incentive spirometry # Chronic Obstructive Pulmonary Disease # Asthma # Hypothyroidism # Psoriasis # Bipolar Disorder - Continue home medications.
[2022-04-11] MEDS: lisinopriL 10 MG TAB PO SCH (21:00)
[2022-04-12 00:19] VITALS: O2SAT 98
[2022-04-12] MEDS: GUAIFENESIN 600 MG SA TAB PO SCH ×2 (00:55→11:12)
[2022-04-12 05:30] LABS: Absolute Lymphocytes (CBC) 1.9 K/uL (0.7-4.9); Lymphocytes % 15.2 % (15.3-44.8); MCV 91.4 fL (80-100); MPV 8.9 fL (7.6-11.3); RBC Red Blood Cell Count 4.15 M/uL (3.86-4.86)
[2022-04-12 05:38] LABS: Bilirubin Total 0.4 mg/dL (0.2-1.0); Potassium 4.5 mmol/L (3.5-5.1); Protein, Total 6.1 g/dL (6.4-8.2)
[2022-04-12] MEDS: dexAMETHasone 10 MG/ML VIAL IV SCH (11:12)
[2022-04-12] MEDS: DOXYCYCLINE 100 MG CAP PO SCH (11:12)
[2022-04-12] MEDS: AMLODIPINE 5 MG TAB PO SCH (11:12)
[2022-04-12] MEDS: ENOXAPARIN 40 MG/0.4 ML SQ SCH (11:13)
[2022-04-12] MEDS: FUROSEMIDE 40 MG/4 ML VIAL IV SCH (11:13)
[2022-04-12] MEDS: CEFTRIAXONE 1,000 MG in NA CHLORIDE 0.9% 50 ML IVPB SCH (11:14)
--- NOTE | 2022-04-12 12:46 | P.DS ---
Admission Date: 04/06/22 Discharge Date: 04/12/22 Disposition: ROUTINE DISCHARGE Discharge Condition: GOOD Reason for Admission: COPD exacerbation pneumonia and positive for COVID Brief History of Present Illness: Ms. Breanne Montes De Oca is a pleasant 76 year old female who has a past medical history of chronic diastolic congestive heart failure, chronic obstructive pulmonary disease, asthma, bipolar disorder, hypertension, hypothyroidism, and psoriasis who presents to the [facility] Emergency Department for shortness of breath. She was recently admitted to our hospital earlier this month for an acute conge stive heart failure exacerbation. Please refer to the discharge summary by Dr. Carcamo dated 03/26/2022 for further details on that hospitalization. She reports that, over the last 3-4 days, she has been experiencing progressively worsening shortness of breath. She denies any associated symptoms and specifically denies any pain. She states that her shortness of breath is significantly worse when lying flat, and is typically relieved by sitting up. She reports that she has had these symptoms in the past, and they seem to be associated with her congestive heart failure exacerbations. Currently, she grades the severity of her symptoms a 9/10. On review of systems, she denies any fevers, chills, headaches, dizziness, syncope, weakness, chest pain, palpitations, abdominal pain, nausea/vomiting, diarrhea, constipation, hematochezia, melena, dysuria, hematuria, myalgia, or any other symptoms. She presented to the Emergency Department for further evaluation. Upon presentation, her vital signs were notable for a heart rate of 99 bpm, a respiratory rate of 22 breaths/min, and a blood pressure of 217/108. Her laboratory studies were notable for an NT-Pro BNP of 3,511. Blood cultures x 2 were obtained. EKG revealed sinus rhythm with a prolonged QTc interval (500 msec). Chest x-ray revealed, "mild CHF with superimposed right lung base pneumonia suspected." In the Emergency Department, she was given aspirin 324 mg PO x 1, nitroglycerin 0.4 mg x 1, and furosemide 40 mg IV x 1. She was admitted to the General Internal Medicine service for further evaluation. Hospital Course: On admission was started on dexamethasone and supplemental oxygen. She was also put on empiric antibiotic therapy of doxycycline and Rocephin for management of suspected pneumonia. she was also started on remdesivir for COVID-19 disease. Pulmonary physician was consulted for additional management recommendation. She responded well to therapy and completed the 6-day course of IV dexamethasone, and dual antibiotic therapy Rocephin and doxycycline. She was deemed stable for discharge today as she was able to meet minimal requirement for mobility and activity participation by PT. She will complete oral course of dexamethasone for 4 days and she will also be continued on as needed Mucinex for antitussive therapy follow-up with pulmonary physician and primary care doctor on outpatient. Vital Signs/Physical Exam: Temp Pulse Resp BP Pulse Ox 97.3 F 81 15 153/40 H 96 04/12/22 08:00 04/12/22 11:13 04/12/22 08:00 04/12/22 11:13 04/12/22 08:00 General: Alert, Oriented x3 HEENT: Atraumatic, Normocephalic Neck: Supple Respiratory: Normal air movement Cardiovascular: Regular rate/rhythm, Normal S1 S2 Gastrointestinal: Soft and benign Musculoskeletal: No swelling Neurological: Normal speech Laboratory Data at Discharge: WBC 12.3 K/uL (4.3-10.9) H 04/12/22 04:50 Hgb 12.5 g/dL (12.0-15.0) 04/12/22 04:50 Hct 38.0 % (36.0-45.0) 04/12/22 04:50 Plt Count 467 K/uL (152-406) H 04/12/22 04:50 PT 10.6 SECONDS (9.5-12.5) 04/06/22 11:10 INR 0.96 04/06/22 11:10 Sodium 137 mmol/L (136-145) 04/12/22 04:50 Potassium 4.5 mmol/L (3.5-5.1) 04/12/22 04:50 BUN 52 mg/dL (7-18) H 04/12/22 04:50 Creatinine 1.12 mg/dL (0.55-1.3) 04/12/22 04:50 Glucose 89 mg/dL (74-106) 04/12/22 04:50 Phosphorus 2.4 mg/dL (2.5-4.9) L 04/07/22 02:53 Magnesium 1.8 mg/dL (1.8-2.4) 04/07/22 02:53 Total Bilirubin 0.4 mg/dL (0.2-1.0) 04/12/22 04:50 AST 14 U/L (15-37) L 04/12/22 04:50 ALT 28 U/L (12-78) 04/12/22 04:50 Alkaline Phosphatase 103 U/L (45-117) 04/12/22 04:50 Home Medications: Divalproex Sodium [Depakote] 500 mg PO BID 11/27/14 Pravastatin Sodium [Pravachol] 20 mg PO DAILY 11/27/14 Metoprolol Succinate [Toprol Xl*] 50 mg PO DAILY #30 tab 11/30/14 Omeprazole [Prilosec] 40 mg PO DAILY 05/25/15 Amlodipine [Norvasc*] 5 mg PO DAILY 06/11/18 Levothyroxine Sodium [Levoxyl] 100 mcg PO [id number] 06/11/18 Losartan Potassium [Cozaar*] 50 mg PO DAILY 06/11/18 Albuterol Sulfate [Proair Hfa] 1 - 2 puff IH Q4HP PRN 09/22/19 Solifenacin Succinate 1 tab PO DAILY 09/22/19 Ergocalciferol (Vitamin D2) [Drisdol] 50,000 unit PO EVERY 7TH DAY #8 capsule 09/23/19 Furosemide [Lasix*] 40 mg PO DAILY #30 tab 03/26/22 Dexamethasone [Decadron] 6 mg PO DAILY 4 Days 04/12/22 Guaifenesin [Mucinex] 600 mg PO BID 7 Days #14 04/12/22 New Medications: Dexamethasone [Decadron] 6 mg PO DAILY 4 Days Guaifenesin [Mucinex] 600 mg PO BID 7 Days #14 Diet: AHA Followup: RAMAKRISHNA LAGUNA [Primary Care Provider] -
[2022-04-12 14:00] VITALS: BP 137/54; TEMP 97.8
== END 2022-04-12 17:18 | disposition home or self-care (01) | DRG 871 ==
LOC: ER 10:47 → ERHOLD 13:25 → 4TH 15:18
PROVIDERS: ADMIT Internal Medicine; ATTEND Internal Medicine
PROC: XW033E5 Introduction of Remdesivir Anti-infective into Peripheral Vein, Percutaneous Approach, New Technology Group 5 (ICD-10-PCS; principal; 2022-04-07)
DX: A41.9 Sepsis, unspecified organism (principal); J18.9 Pneumonia, unspecified organism; U07.1 COVID-19; J12.82 Pneumonia due to coronavirus disease 2019; I50.33 Acute on chronic diastolic (congestive) heart failure; J44.0 Chronic obstructive pulmonary disease with (acute) lower respiratory infection; I16.1 Hypertensive emergency; J96.10 Chronic respiratory failure, unspecified whether with hypoxia or hypercapnia; E03.9 Hypothyroidism, unspecified; L40.9 Psoriasis, unspecified; F31.9 Bipolar disorder, unspecified; F40.240 Claustrophobia; I11.0 Hypertensive heart disease with heart failure; E78.5 Hyperlipidemia, unspecified; K21.9 Gastro-esophageal reflux disease without esophagitis; G47.30 Sleep apnea, unspecified; Z99.81 Dependence on supplemental oxygen
CPT/HCPCS: 36415; 71045; 80048; 80053; 81003; 82947; 83605; 83735; 83880; 84100; 84484; 85025; 85610; 87040; 87811; 93005; 93306; 94010; 94640; 96374; 97116; 97161; 99285; J0248; J0360; J1100; J1650; J1940; J7050

== ENCOUNTER 2022-09-02 06:31 | Inpatient (IN) | payer OTHER ==
--- OUTSIDE RECORDS SUMMARY | 2022-09-02 06:44 | XMS REPORT | Continuity of Care Document ---
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 MG 9-18 tab, PO, l Oral Tablet 18:21: Q12H, 0 Her villegas [Keppra] 00 Refill(s) Lidocaine Yes 1 patch, Samson jere 0.05 MG/MG 9-18 TOP, l Transdermal 18:21: Daily, 0 He rmann Patch 00 Refill(s) polyethylen 0 Yes PO, Daily, Memoria e glycol 18 0 l 3350 oral 18:21: Refill(s) Her villegas powder for 00 reconstitut ion Sulfamethox Yes 1 tab, PO, Memoria azole 800 9-18 [id number], 0 l MG / 18:21: Refill(s) Arash Trimethopri 00 m 160 MG Oral Tablet [Bactrim] Docusate Yes 1 tab, PO, Mem oria Sodium 50 9-18 BID, PRN l MG / 18:21: Constipati [place] sennosides, 00 on, 0 [facility] 8.6 MG Refill(s) Oral Tablet gabapentin Yes 100 mg = 1 M emoria 100 MG Oral 9-18 cap, PO, l Capsule 18:21: Q8H, 0 [place] 00 Refill(s) Levetiracet Yes 500 mg = 1 Memoria am 500 MG 9-18 tab, PO, l Oral Tablet 18:21: Q12H, 0 Her villegas [Keppra] 00 Refill(s) Lidocaine Yes 1 patch, Samson jere 0.05 MG/MG 9-18 TOP, l Transdermal 18:21: Daily, 0 He rmann Patch 00 Refill(s) polyethylen 0 Yes PO, Daily, Memoria e glycol 9-18 0 l 3350 oral 18:21: Refill(s) Her villegas powder for 00 reconstitut ion Sulfamethox Yes 1 tab, PO, Memoria azole 800 9-18 [id number], 0 l MG / 18:21: Refill(s) Arash Trimethopri 00 m 160 MG Oral Tablet [Bactrim] remove No Notes: Memoria patch 9-16 Remove l 02:00: patch 12 [place] 00 hours after applicatio n each day. remove No Notes: Memoria patch 9-16 Remove l 02:00: patch 12 Arash 00 hours after applicatio n each day. Docusate No Notes: Memoria Sodium 50 9-15 (Same as l MG / 22:00: Senokot-S) [place] sennosides, 00 Equiv. to [facility] 8.6 MG [facility] Oral Tablet e. Docusate No Notes: Memoria Sodium 50 9-15 (Same as l MG / 22:00: Senokot-S) Arash sennosides, 00 Equiv. to [facility] 8.6 MG [facility] Oral Tablet e. Lidocaine No Notes: Memori a 0.05 MG/MG 9-15 Apply only l Transdermal 14:00: once for He rmann Patch 00 up to 12 hours in a 24-hour period (12 hours on and 12 hours off). (Same as: Lidoderm) "Remove old patch before applicatio n of new patch" Lidocaine No Notes: Memori a 0.05 MG/MG 9-15 Apply only l Transdermal 14:00: once for He rmann Patch 00 up to 12 hours in a 24-hour period (12 hours on and 12 hours off). (Same as: Lidoderm) "Remove old patch before applicatio n of new patch" Symbicort No 2 puff, Memor ia 160/4.5 05-30 Route: l inhalation 22:00: INHALATION H ermann aerosol 00 , Drug with Form: adapter AERO/A, Dosing Weight 130, kg, BID, Start date: 05/30/19 17:00:00 CDT, Duration: 30 day, Stop date: 06/29/19 9:00:00 CDT Symbicort No 2 puff, Memor ia 160/4.5 05-30 Route: l inhalation 22:00: INHALATION H ermann aerosol 00 , Drug with Form: adapter AERO/A, Dosing Weight 130, kg, BID, Start date: 05/30/19 17:00:00 CDT, Duration: 30 day, Stop date: 06/29/19 9:00:00 CDT albuterol No Notes: SEE Me moria - RT l 20:00: DOCUMENTAT Arash ION (Same as: Proventil) albuterol No Notes: SEE Me moria -13 RT l 20:00: DOCUMENTAT Arash ION (Same as: Proventil) Pulmicort No Notes: Memori a Respules 05-30 (Same As: l 19:36: Pulmicort) [place] 00 Pulmicort No Notes: Memori a Respules 05-30 (Same As: l 19:36: Pulmicort) Pravachol No Notes: Memori a -13 (Same as: l 02:00: Pravachol) [place] 00 Pravachol No Notes: Memori a 9-13 (Same as: l 02:00: Pravachol) [place] 00 Sulfamethox No Notes: One Memoria azole 800 9-12 DS tablet l MG / 23:00: = Arash Trimethopri 00 trimethopr m 160 MG im 160mg + Oral Tablet sulfametho [Bactrim] xazole 800 mg Dose based on trimethopr im component On empty stomach with a glass of water. (Same As: Bactrim DS, Septra DS) Sulfamethox No Notes: One Memoria azole 800 9-12 DS tablet l MG / 23:00: = [place] Trimethopri 00 trimethopr m 160 MG im 160mg + Oral Tablet sulfametho [Bactrim] xazole 800 mg Dose based on trimethopr im component On empty stomach with a glass of water. (Same As: Bactrim DS, Septra DS) Morphine No Notes: Memoria 12 (Same l 21:01: as:MORPhin [place] 00 e Sulfate) Morphine No Notes: Memoria 9-12 (Same l 21:01: as:MORPhin Arash 00 e Sulfate) Levetiracet No Notes: Samson jere am 500 MG 9-12 (Same l Oral Tablet 14:00: as:Keppra) Arash [Keppra] Losartan No Notes: Memoria 9-12 (Same as: l 14:00: Cozaar) Detrol No Notes: Memoria 9-12 (Same As: l 14:00: Detrol) metoprolol No Notes: Memor ia tartrate 9-12 (Same as: l 14:00: Lopressor) Miralax No 17 gm, 1 Memori a 9-12 pkt, l 14:00: Route: PO, Drug form: PWDR, Daily, Dosing Weight 130, kg, Start date: 05/29/19 9:00:00 CDT, Duration: 30 day, Stop date: 06/27/19 9:00:00 CDT, 0 Levetiracet No Notes: Samson jere am 500 MG -12 (Same l Oral Tablet 14:00: as:Keppra) [place] [Keppra] Losartan No Notes: Memoria 9-12 (Same as: l 14:00: Cozaar) Detrol No Notes: Memoria 9-12 (Same As: l 14:00: Detrol) metoprolol No Notes: Memor ia tartrate 9-12 (Same as: l 14:00: Lopressor) Miralax No 17 gm, 1 Memori a 9-12 pkt, l 14:00: Route: PO, Drug form: PWDR, Daily, Dosing Weight 130, kg, Start date: 05/29/19 9:00:00 CDT, Duration: 30 day, Stop date: 06/27/19 9:00:00 CDT, 0 Docusate No Notes: Memoria Sodium 50 -12 (Same as l MG / 09:37: Senokot-S) Arash sennosides, 00 Equiv. to [facility] 8.6 MG [facility] Oral Tablet e. Docusate 2019-0 No Notes: Memoria Sodium 50 9-12 (Same as l MG / 09:37: Senokot-S) Arahs merlos, 00 Equiv. to [facility] 8.6 MG [facility] Oral Tablet e. Tramadol 2019-0 No 100 mg, 2 Samson jere 9-11 tab, l 23:22: Route: PO, Drug form: TAB, Q6H, Dosing Weight 130, kg, PRN Pain Score 4-6, Start date: 05/28/19 18:22:00 CDT, Duration: 30 day, Stop date: 06/27/19 18:21:00 CDT, 0 Tramadol 2019-0 No 100 mg, 2 Samson jere 9-11 tab, l 23:22: Route: PO, Drug form: TAB, Q6H, Dosing Weight 130, kg, PRN Pain Score 4-6, Start date: 05/28/19 18:22:00 CDT, Duration: 30 day, Stop date: 06/27/19 18:21:00 CDT, 0 Symbicort 2019-0 No 2 puff, Memor ia 160/4.5 05-28 Route: l inhalation 22:00: INHALATION H ermann aerosol , Drug with Form: adapter AERO/A, Dosing Weight 130, kg, BID, Start date: 05/28/19 17:00:00 CDT, Duration: 30 day, Stop date: 06/27/19 9:00:00 CDT Symbicort 2019-0 No 2 puff, Memor ia 160/4.5 05-28 Route: l inhalation 22:00: INHALATION H ermann aerosol , Drug with Form: adapter AERO/A, Dosing Weight 130, kg, BID, Start date: 05/28/19 17:00:00 CDT, Duration: 30 day, Stop date: 06/27/19 9:00:00 CDT albuterol 2019-0 No 2.49 mg, 3 Me moria 9-11 mL, Route: l 20:00: NEB, Drug form: SOLN, RQID, Start date: 05/28/19 15:00:00 CDT, Duration: 30 day, Stop date: 06/27/19 11:00:00 CDT, 0 albuterol 2019-0 No 2.49 mg, 3 Me moria 9-11 mL, Route: l 20:00: NEB, Drug form: SOLN, RQID, Start date: 05/28/19 15:00:00 CDT, Duration: 30 day, Stop date: 06/27/19 11:00:00 CDT, 0 Tylenol 2019-0 No Notes: Max Samson jere 9-11 acetaminop l 19:33: hen 4000 Arash 00 mg/day (4 gm/day). (Same as: Tylenol Extra Strength) Tylenol 2019-0 No Notes: Max Samson jere 9-11 acetaminop l 19:33: hen 4000 Arash 00 mg/day (4 gm/day). (Same as: Tylenol Extra Strength) Pulmicort 2019-0 No 0.5 mg, 2 Mem oria Respules 9-11 mL, Route: l 18:52: NEB, Drug form: SUSP, RBID, Start date: 05/28/19 13:52:00 CDT, Duration: 30 day, Stop date: 06/27/19 8:00:00 CDT, 0 Pulmicort 2019-0 No 0.5 mg, 2 Mem oria Respules 9-11 mL, Route: l 18:52: NEB, Drug form: SUSP, RBID, Start date: 05/28/19 13:52:00 CDT, Duration: 30 day, Stop date: 06/27/19 8:00:00 CDT, 0 Amoxicillin 2019-0 No 1 tab, Samson jere 875 MG / 05-28 Route: PO, l Clavulanate 18:41: Drug Form: [place] 125 MG Oral 00 TAB, Tablet Dosing [Augmentin Weight 875-mg] 130, kg, [id number], NOW, Start date: 05/28/19 13:41:00 CDT, Duration: 30 day, Stop date: 06/27/19 2:00:00 CDT, 0 Amoxicillin 2019-0 No 1 tab, Samson jere 875 MG / 11 Route: PO, l Clavulanate 18:41: Drug Form: Arash 125 MG Oral 00 TAB, Tablet Dosing [Augmentin Weight 875-mg] 130, kg, [id number], NOW, Start date: 05/28/19 13:41:00 CDT, Duration: 30 day, Stop date: 06/27/19 2:00:00 CDT, 0 Amlodipine No Notes: Memor ia 9-11 (Same as: l 14:00: Norvasc) Amlodipine No Notes: Memor ia 9-11 (Same as: l 14:00: Norvasc) metoprolol No Notes: Memor ia tartrate 9-11 (Same as: l 12:00: Lopressor) metoprolol No Notes: Memor ia tartrate 9-11 (Same as: l 12:00: Lopressor) Tylenol No Notes: Max Samson jere 9-11 acetaminop l 05:00: hen 4000 Arash 00 mg/day (4 gm/day). (Same as: Tylenol Extra Strength) gabapentin No Notes: Memor ia 9-11 (Same as: l 05:00: Neurontin) Tylenol No Notes: Max Samson jere 9-11 acetaminop l 05:00: hen 4000 Arash 00 mg/day (4 gm/day). (Same as: Tylenol Extra Strength) gabapentin No Notes: Memor ia 9-11 (Same as: l 05:00: Neurontin) Naproxen No Notes: Memoria 9-11 (Same as: l 02:00: Naprosyn) Take with food. Naproxen No Notes: Memoria 9-11 (Same as: l 02:00: Naprosyn) Take with food. Hydralazine No 10 mg, Samson jere 9-10 Route: l 21:32: IVP, ONCE, Dosing Weight 130, kg, Start date: 05/27/19 16:32:00 CDT, Stop date: 05/27/19 16:32:00 CDT Hydralazine No 10 mg, Samson jere 9-10 Route: l 21:32: IVP, ONCE, Dosing Weight 130, kg, Start date: 05/27/19 16:32:00 CDT, Stop date: 05/27/19 16:32:00 CDT Losartan No Notes: Memoria 9-10 (Same as: l 21:00: Cozaar) Arash 00 Losartan No Notes: Memoria 9-10 (Same as: l 21:00: Cozaar) [place] 00 Dexmedetomi No Notes: Use Memoria dine 9-10 the l 20:06: following [place] 00 cdm for [id number]. Dexmedetomi No Notes: Use Memoria dine 9-10 the l 20:06: following Arash 00 cdm for [id number]. cefepime No Notes: Memoria 9-10 (Same As: l 14:00: Maxipime) Arash 00 MEDICATION WASTE Product Size: 1000 mg Product Wasted: _0__ mg Famotidine No Notes: Memor ia 9-10 (Same as: l 14:00: Pepcid) Arash 00 Can be dilute in 5-10cc NS IVP: Slow IV push over at least 2 minutes. Saline No Notes: Memoria Flush 0.9% 9-10 (Same as: l 14:00: BD [place] 00 Posiflush) chlorhexidi No Notes: Samson jere ne 9-10 (Same As: l gluconate 14:00: Peridex) Herm rachna 1.2 MG/ML 00 Mouthwash Symbicort No Notes: Memori a 160/4.5 9-10 (Same as: l inhalation 14:00: Symbicort) H ermann aerosol 00 WASTE: with Aerosol - adapter Return to Pharmacy cefepime No Notes: Memoria 9-10 (Same As: l 14:00: Maxipime) [place] 00 MEDICATION WASTE Product Size: 1000 mg Product Wasted: _0__ mg Famotidine No Notes: Memor ia 9-10 (Same as: l 14:00: Pepcid) Arash 00 Can be dilute in 5-10cc NS IVP: Slow IV push over at least 2 minutes. Saline No Notes: Memoria Flush 0.9% 9- (Same as: l 14:00: BD [place] 00 Posiflush) chlorhexidi No Notes: Samson jere ne - (Same As: l gluconate 14:00: Peridex) Herm rachna 1.2 MG/ML 00 Mouthwash Symbicort No Notes: Memori a 160/4.5 -10 (Same as: l inhalation 14:00: Symbicort) H ermann aerosol 00 WASTE: with Aerosol - adapter Return to Pharmacy cefepime No Notes: Memoria 9-10 (Same As: l 13:00: Maxipime) [place] 00 MEDICATION WASTE Product Size: 1000 mg Product Wasted: 0 mg cefepime No Notes: Memoria 9-10 (Same As: l 13:00: Maxipime) Arash 00 MEDICATION WASTE Product Size: 1000 mg Product Wasted: 0 mg Levoxyl No Notes: Memoria 9-10 Take 1 l 11:30: hour Arash 00 before or 2 hours after meal; Enteral feeds may interefere with the absorption of this medication . (Same as:Levothr oid, Synthroid) Levoxyl No Notes: Memoria 9-10 Take 1 l 11:30: hour Arash 00 before or 2 hours after meal; Enteral feeds may interefere with the absorption of this medication . (Same as:Levothr oid, Synthroid) Docusate No Notes: Memoria Sodium 50 9-10 (Same as l MG / 11:04: Senokot-S) [place] sennosides, 00 Equiv. to [facility] 8.6 MG [facility] Oral Tablet e. Docusate No Notes: Memoria Sodium 50 9-10 (Same as l MG / 11:04: Senokot-S) [place] sennosides, 00 Equiv. to [facility] 8.6 MG [facility] Oral Tablet e. ocular No Notes: Memoria lubricant 9-10 (Same as: l 11:00: Lacri-Lube [place] 00 , Puralube, Duratears Naturale, Artificial Tears, and Tears Again ) ocular No Notes: Memoria lubricant 9-10 (Same as: l 11:00: Lacri-Lube [place] 00 , Puralube, Duratears Naturale, Artificial Tears, and Tears Again ) Levothyroxi Yes 100 Memori a ne Sodium 9-10 microgram l 0.1 MG Oral 09:03: = 1 tab, He rmann Tablet 00 PO, Daily, [Levoxyl] # 30 tab, 0 Refill(s) Levothyroxi Yes 100 Memori a ne Sodium 9-10 microgram l 0.1 MG Oral 09:03: = 1 tab, He rmann Tablet 00 PO, Daily, [Levoxyl] # 30 tab, 0 Refill(s) chlorhexidi No Notes: Samson jere ne 9-10 (Same As: l gluconate 08:52: Peridex) Herm rachna 1.2 MG/ML 00 Mouthwash chlorhexidi No Notes: Samson jere ne 9-10 (Same As: l gluconate 08:52: Peridex) Herm rachna 1.2 MG/ML 00 Mouthwash Amlodipine No PO, Daily, M emoria 9-10 0 l 07:28: Refill(s) Arash 00 Furosemide No 40 mg = 1 Me moria 40 MG Oral 9-10 tab, PO, l Tablet 07:28: Daily, # Arash [Lasix] 00 30 tab, 0 Refill(s) Levoxyl 0 No PO, Daily, Samson jere 9-10 0 l 07:28: Refill(s) [place] 00 losartan 50 2019 Yes 50 mg = 1 M emoria mg oral 9-10 tab, PO, l tablet 07:28: Daily, # Arash 00 30 tab, 0 Refill(s) metoprolol 2019 Yes 50 mg = 1 Me moria tartrate 50 9-10 tab, PO, l mg oral 07:28: BID, # 60 Jessy nn tablet 00 tab, 0 Refill(s) Pravastatin Yes 20 mg = 1 M emoria Sodium 20 9-10 tab, PO, l MG Oral 07:28: Bedtime, # Herm rachna Tablet 00 30 tab, 0 [Pravachol] Refill(s) Symbicort Yes 2 puff, Memor ia 160/4.5 9-10 INHALATION l inhalation 07:28: , BID, # 6 H ermann aerosol 00 gm, 0 with Refill(s) adapter tolterodine 2019-0 Yes 2 mg = 1 Me moria tartrate 2 9-10 tab, PO, l MG Oral 07:28: BID, # 60 Jsesy nn Tablet 00 tab, 0 [Detrol] Refill(s) Loratadine Yes 10 mg = 1 Me moria 10 MG Oral 9-10 tab, PO, l Tablet 07:28: Daily, # [place] 00 30 tab, 0 Refill(s) 200 ACTUAT 20190 Yes 2 puff, Samson jere Albuterol 9-10 INHALER, l 0.09 07:28: Q6H, PRN Arash MG/ACTUAT 00 for Metered wheezing, Dose # 8.5 gm, Inhaler 0 [ProAir Refill(s) HFA] Amlodipine 2018-0 No PO, Daily, M emoria 9-10 0 l 07:28: Refill(s) Arash 00 Furosemide No 40 mg = 1 Me moria 40 MG Oral 9-10 tab, PO, l Tablet 07:28: Daily, # Arash [Lasix] 00 30 tab, 0 Refill(s) Levoxyl 2018-0 No PO, Daily, Samson jere 9-10 0 l 07:28: Refill(s) [place] 00 losartan 50 0 Yes 50 mg = 1 M emoria mg oral 9-10 tab, PO, l tablet 07:28: Daily, # [place] 00 30 tab, 0 Refill(s) metoprolol 0 Yes 50 mg = 1 Me moria tartrate 50 9-10 tab, PO, l mg oral 07:28: BID, # 60 Jessy nn tablet 00 tab, 0 Refill(s) Pravastatin 20190 Yes 20 mg = 1 M emoria Sodium 20 9-10 tab, PO, l MG Oral 07:28: Bedtime, # Herm rachna Tablet 00 30 tab, 0 [Pravachol] Refill(s) Symbicort 2018-0 Yes 2 puff, Memor ia 160/4.5 9-10 INHALATION l inhalation 07:28: , BID, # 6 H ermann aerosol 00 gm, 0 with Refill(s) adapter tolterodine Yes 2 mg = 1 Me moria tartrate 2 9-10 tab, PO, l MG Oral 07:28: BID, # 60 Jessy nn Tablet 00 tab, 0 [Detrol] Refill(s) Loratadine Yes 10 mg = 1 Me moria 10 MG Oral 9-10 tab, PO, l Tablet 07:28: Daily, # [place] 00 30 tab, 0 Refill(s) 200 ACTUAT 20190 Yes 2 puff, Samson jere Albuterol 9-10 INHALER, l 0.09 07:28: Q6H, PRN [place] MG/ACTUAT 00 for Metered wheezing, Dose # 8.5 gm, Inhaler 0 [ProAir Refill(s) HFA] Flagyl No Notes: Memoria 9-10 (Same as: l 05:00: Flagyl) Arash 00 Avoid alcohol. Vancomycin No 2001 mg: Me moria 9-10 infuse l 05:00: over 2.5 Arash 00 hours For adult patients only: Round to nearest 250 mg per Medical Staff approval MEDICATION WASTE Product Size: 1000 mg Product Wasted: ___ mg Flagyl No Notes: Memoria 9-10 (Same as: l 05:00: Flagyl) [place] 00 Avoid alcohol. Vancomycin No 2001 mg: Me moria 9-10 infuse l 05:00: over 2.5 [place] 00 hours For adult patients only: Round to nearest 250 mg per Medical Staff approval MEDICATION WASTE Product Size: 1000 mg Product Wasted: ___ mg Vancomycin 2018- No 2001 mg: Me moria 9-10 infuse l 04:25: over 2.5 [place] 00 hours For adult patients only: Round to nearest 250 mg per Medical Staff approval MEDICATION WASTE Product Size: 1000 mg Product Wasted: ___ mg cefepime 2018- No Notes: Memoria 9-10 (Same as: l 04:25: Maxipime) Arash 00 MEDICATION WASTE Product Size: 2000 mg Product Wasted: ___ mg Vancomycin 2019-0 No 2001 mg: Me moria 9-10 infuse l 04:25: over 2.5 Arash 00 hours For adult patients only: Round to nearest 250 mg per Medical Staff approval MEDICATION WASTE Product Size: 1000 mg Product Wasted: ___ mg cefepime No Notes: Memoria 9-10 (Same as: l 04:25: Maxipime) MEDICATION WASTE Product Size: 2000 mg Product Wasted: ___ mg Enoxaparin No Notes: Memor ia 9-10 (Same as: l 04:00: Lovenox) [place] 00 Enoxaparin No Notes: Memor ia 9-10 (Same as: l 04:00: Lovenox) [place] 00 Nystatin No Notes: Memoria 100 UNT/MG 9-10 (Same l Topical 03:59: as:Mycosta Herm rachna Powder 00 tin, Nilstat) For external use only. Albuterol No Notes: Memori a 0.833 MG/ML 9-10 (Same as: l / 03:59: Duoneb) [place] Ipratropium 00 [place] 0.167 MG/ML Inhalant Solution Saline No Notes: Memoria Flush 0.9% 9-10 (Same as: l 03:59: BD Arash 00 Posiflush) Nystatin No Notes: Memoria 100 UNT/MG 9-10 (Same l Topical 03:59: as:Mycosta Herm rachna Powder 00 tin, Nilstat) For external use only. Albuterol No Notes: Memori a 0.833 MG/ML 9-10 (Same as: l / 03:59: Duoneb) Arash Ipratropium 00 [place] 0.167 MG/ML Inhalant Solution Saline No Notes: Memoria Flush 0.9% 9-10 (Same as: l 03:59: BD [place] 00 Posiflush) Fentanyl No 50 Memoria 9-09 microgram, l 23:09: Route: Arash 00 IVP, ONCE, Dosing Weight 130, kg, Priority: STAT, Start date: 05/26/19 18:09:00 CDT, Stop date: 05/26/19 18:09:00 CDT Fentanyl No 50 Memoria 9-09 microgram, l 23:09: Route: [place] 00 IVP, ONCE, Dosing Weight 130, kg, Priority: STAT, Start date: 05/26/19 18:09:00 CDT, Stop date: 05/26/19 18:09:00 CDT Fentanyl 2019-0 No 1,000 Memoria 9-09 microgram, l 21:43: 20 mL, Rate: Titrate, Start Dose: 50 microgram/ hr, Titration: 25 microgram/ hour every 15 minutes, Goal(s): rass 0, Max Dose: 300 microgram/ hr, Route: IV, Dosing Weight 130 kg, Total Volume: 20, Start date: 05/26/19 16:43:00 CDT, Durat... Fentanyl 2019-0 No 1,000 Memoria 9-09 microgram, l 21:43: 20 mL, Rate: Titrate, Start Dose: 50 microgram/ hr, Titration: 25 microgram/ hour every 15 minutes, Goal(s): rass 0, Max Dose: 300 microgram/ hr, Route: IV, Dosing Weight 130 kg, Total Volume: 20, Start date: 05/26/19 16:43:00 CDT, Durat... Fentanyl 2019-0 No 50 Memoria 9-09 microgram, l 20:47: Route: IVP, Drug form: INJ, ONCE, Dosing Weight 130, kg, Priority: STAT, Start date: 05/26/19 15:47:00 CDT, Stop date: 05/26/19 15:47:00 CDT, 0 Fentanyl 2019-0 No 50 Memoria 9-09 microgram, l 20:47: Route: IVP, Drug form: INJ, ONCE, Dosing Weight 130, kg, Priority: STAT, Start date: 05/26/19 15:47:00 CDT, Stop date: 05/26/19 15:47:00 CDT, 0 Versed 2018-0 No 1 mg/kg, Memoria 05-26 Route: l 20:46: IVP, ONCE, Dosing Weight 130, kg, Priority: STAT, Start date: 05/26/19 15:46:00 CDT, Stop date: 05/26/19 15:46:00 CDT Versed 2018-0 No 1 mg/kg, Memoria 05-26 Route: l 20:46: IVP, ONCE, Dosing Weight 130, kg, Priority: STAT, Start date: 05/26/19 15:46:00 CDT, Stop date: 05/26/19 15:46:00 CDT Fentanyl 2018- No 50 Memoria 9- microgram, l 19:46: 1 mL, Route: IVP, Drug form: INJ, ONCE, Dosing Weight 130, kg, Priority: STAT, Start date: 05/26/19 14:46:00 CDT, Stop date: 05/26/19 14:46:00 CDT, 0 Fentanyl 2018- No 50 Memoria 05-26 microgram, l 19:46: 1 mL, Route: IVP, Drug form: INJ, ONCE, Dosing Weight 130, kg, Priority: STAT, Start date: 05/26/19 14:46:00 CDT, Stop date: 05/26/19 14:46:00 CDT, 0 Propofol No Notes: Per [facility] oria 05-26 state l 19:42: nursing Arash law propofol can only be given by a nurse if patient is intubated or being intubated (unless the nurse is a SPORTS SPECIALIST). (Same as: Ju) Fentanyl No Notes: Memoria 05-26 (Same as: l 19:42: Sublimaze) Propofol No Notes: Per [facility] oria 05-26 state l 19:42: nursing [place] 00 law propofol can only be given by a nurse if patient is intubated or being intubated (unless the nurse is a SPORTS SPECIALIST). (Same as: Ju) Fentanyl No Notes: Memoria 05-26 (Same as: l 19:42: Sublimaze) propofol 10 No 1,000 mg, M emoria mg/mL 05-26 100 mL, l (Titrate.) 19:30: Rate: Vincent n IV 1,000 mg 00 Titrate, Start Dose: 5 microgram/ kg/min, Titration: 5 microgram/ kg/min every 15 min, Goal(s): RASS -1, Max Dose: 50 microgram/ kg/min, Route: IV, Dosing Weight 130 kg, Total Volume: 100, Start date: 05/26/19 14:30:00 CDT, Durati... propofol 10 No 1,000 mg, M emoria mg/mL 05-26 100 mL, l (Titrate.) 19:30: Rate: Vincent n IV 1,000 mg 00 Titrate, Start Dose: 5 microgram/ kg/min, Titration: 5 microgram/ kg/min every 15 min, Goal(s): RASS -1, Max Dose: 50 microgram/ kg/min, Route: IV, Dosing Weight 130 kg, Total Volume: 100, Start date: 05/26/19 14:30:00 CDT, Durati... Iohexol No Notes: Memoria 05-26 (Same l 18:16: as:Omnipaq [place] [address]). WASTE: F/P - Black; E - [facility] Trash [facility] Iohexol No Notes: Memoria 05-26 (Same l 18:16: as:Omnipaq [place] [address]). WASTE: F/P - Black; E - [facility] Trash [facility] Iohexol No 150 mL, Memoria 05-26 Route: l 18:12: IVP, Drug [place] 00 Form: SOLN, kg, ONCALL, STAT, Start date: 05/26/19 13:12:00 CDT, Duration: 1 doses or times, Dose = 2.2ml/kg, Max dose = 150ml -- "To be infused by Radiology Staff ONLY" Iohexol No 150 mL, Memoria 05-26 Route: l 18:12: IVP, Drug [place] Form: SOLN, kg, ONCALL, STAT, Start date: 05/26/19 13:12:00 CDT, Duration: 1 doses or times, Dose = 2.2ml/kg, Max dose = 150ml -- "To be infused by Radiology Staff ONLY" Morphine No Notes: Memoria 05-26 (Same l 17:22: as:MORPhin [place] 00 e Sulfate) Zofran No Notes: Memoria 05-26 (Same as: l 17:22: Zofran) [place] 00 MEDICATION WASTE Product Size: 4 mg Product Wasted: ___ mg Morphine No Notes: Memoria 05-26 (Same l 17:22: as:MORPhin Arash 00 e Sulfate) Zofran No Notes: Memoria 05-26 (Same as: l 17:22: Zofran) Arash 00 MEDICATION WASTE Product Size: 4 mg Product Wasted: ___ mg Saline No Notes: Memoria Flush 0.9% 05-26 (Same as: l 17:16: BD Arash 00 Posiflush) Saline No Notes: Memoria Flush 0.9% 05-26 (Same as: l 17:16: BD [place] Posiflush) Estrace Estrace Yes Ramon as Commo n 6-06 [facility] directed [facility] 00:00: - [facility] 00 [facility] Levothyroxi Levothyroxi Yes Ramon 1 tablet Common ne Sodium ne Sodium Johns on an Sp tai empty - [facility] stomach in [facility] Pravastatin Pravastatin Yes Ramon 1 tablet Common Sodium Sodium [facility] Loratadine Loratadine Yes Ramon 1 tablet Common Allergy Allergy Johns on the Spiri t Relief Relief tongue and - [facility] allow to [facility] Perforomist Perforomist Yes Ramon 2 ml Common [facility] Divalproex Divalproex Yes Ramon not C ommon Sodium Sodium [facility] defined [facility] Losartan Losartan Yes Ramon 1 tablet C ommon Potassium Potassium [facility] Furosemide Furosemide Yes Ramon 1 tablet Common Johns [facility] ProAir HFA ProAir HFA Yes Ramon 2 puffs as Common Johns needed [facility] Symbicort Symbicort Yes Ramon 2 puffs Common [facility] Amlodipine Amlodipine Yes Ramon 1 tablet Common Besylate Besylate [facility] Klor-Con Klor-Con Yes Ramon 1 packet C ommon Johns with food [facility] Quetiapine Quetiapine Yes Ramon 1 tablet Common Fumarate Fumarate [facility] Metoprolol Metoprolol Yes Ramon not C ommon Succinate Succinate Johns defined [facility] Immunizations Ordered Filled Immunization Date Status Comments [facility] e Immunization Name Name Pneumococcal 2015-05-30 Completed [facility] Polys[place], 00:00[facility]00 [place] [facility] PPSV23 (PNEUMOVAX) [place] Vital Signs Vital Name Observation Time Observation Value Comments Source Systolic blood 2020-11-12 22:50:00 152 mm[Hg] [facility] Diastolic blood 2020-11-12 22:50:00 67 mm[Hg] [facility] Heart rate 2020-11-12 22:50:00 90 /min [facility] [place] [facility] Body temperature 2020-11-12 22:50:00 37.39 Karen [facility] [place] [facility] Respiratory rate 2020-11-12 22:50:00 20 /min [facility] [place] [facility] Oxygen saturation in 2020-11-12 22:50:00 96 /min [facility] Arterial blood by [place] [employer] vinay Pulse oximetry Branch Body weight 2020-11-03 23:13:00 113.399 kg [facility] [place] [facility] BMI 2020-11-03 23:13:00 47.20 kg/m2 [facility] [place] [facility] Systolic blood 2020-11-12 22:50:00 152 mm[Hg] [facility] [place] [facility] Diastolic blood 2020-11-12 22:50:00 67 mm[Hg] [facility] Heart rate 2020-11-12 22:50:00 90 /min [facility] [place] [facility] Body temperature 2020-11-12 22:50:00 37.39 Karen [facility] [place] [facility] Respiratory rate 2020-11-12 22:50:00 20 /min [facility] [place] [facility] Oxygen saturation in 2020-11-12 22:50:00 96 /min [facility] Arterial blood by [place] [employer] vinay Pulse oximetry Branch Body weight 2020-11-03 23:13:00 113.399 kg [facility] [place] [facility] BMI 2020-11-03 23:13:00 47.20 kg/m2 [facility] [place] [facility] Temperature Oral (F) 2019-09-17 13:15:[address] [facility] Heart Rate 2019-09-17 13:15:00 [facility] Respitory Rate 2019-09-17 13:15:00 [facility] [place] Systolic (mm Hg) 2019-09-17 13:15:00 Samson rial [place] Diastolic (mm Hg) 2019-09-17 13:15:00 Mem [facility] [place] Heart Rate 2019-09-17 09:14:00 [facility] [place] Respitory Rate 2019-09-17 09:14:00 [facility] [place] Systolic (mm Hg) 2019-09-17 09:14:00 Samson rial [facility] Diastolic (mm Hg) 2019-09-17 09:14:00 Mem [facility] [place] Temperature Oral (F) 2019-09-17 09:14:00 97.8 F [facility] Temperature Oral (F) 2019-09-17 04:42:00 97.6 F [facility] [place] Heart Rate 2019-09-17 04:42:00 [facility] Respitory Rate 2019-09-17 04:42:00 [facility] Systolic (mm Hg) 2019-09-17 04:42:00 Samson rial [facility] Diastolic (mm Hg) 2019-09-17 04:42:00 Mem [facility] Weight 2019-09-16 12:50:00 [facility] [place] Height 2019-09-15 05:17:00 157.48 cm [facility] Weight 2019-09-15 05:17:00 [facility] BMI Calculated 2019-09-15 05:17:00 [facility] [place] Temperature Oral (F) 2019-06-04 17:13:00 97.1 F [facility] Heart Rate 2019-06-04 17:13:00 [facility] Respitory Rate 2019-06-04 17:13:00 [facility] [place] Systolic (mm Hg) 2019-06-04 17:13:00 Samson rial [facility] Diastolic (mm Hg) 2019-06-04 17:13:00 Mem [facility] [place] Temperature Oral (F) 2019-06-04 12:15:00 97.5 F [facility] [place] Heart Rate 2019-06-04 12:15:00 [facility] [place] Respitory Rate 2019-06-04 12:15:00 [facility] [place] Systolic (mm Hg) 2019-06-04 12:15:00 Samson rial [facility] Diastolic (mm Hg) 2019-06-04 12:15:00 Mem orial [place] Heart Rate 2019-06-04 09:41:00 [facility] [place] Respitory Rate 2019-06-04 09:41:00 Carey fonseca [facility] Systolic (mm Hg) 2019-06-04 09:41:00 Samson garcia [place] Diastolic (mm Hg) 2019-06-04 09:41:00 Mem [facility] Temperature Oral (F) 2019-06-03 21:55:00 99.4 F [facility] [place] Height 2019-05-30 10:34:00 160.02 cm [facility] Height 2019 16:48:00 160.02 cm [facility] Height 2019 12:47:00 160.02 cm [facility] Weight 2019-05-27 02:16:00 [facility] BMI Calculated 2019-05-27 02:16:00 Carey fonseca [facility] BMI Calculated 2019-05-26 17:05:00 Carey fonseca [facility] Weight 2019-05-26 17:05:00 [facility] Arash Procedures Procedure Date / Time Performing Clinician Source Performed BASIC METABOLIC PANEL (NA, 2020-11-10 10:07:00 Arminda Barrera [facility] [place] K, CL, CO2, GLUCOSE, BUN, Medica l Branch CREATININE, [place]) CBC WITH DIFF 2020-11-10 10:07:00 Franko [facility] VERIFYNOW ASPIRIN TEST 2020-11-10 10:07:00 Arminda Barrera [facility] BASIC METABOLIC PANEL (NA, 2020-11-09 10:43:00 Abdul, Minnie [employer] [facility] [place] K, CL, CO2, GLUCOSE, BUN, Medica l Branch CREATININE, CA) CBC WITH DIFF 2020-11-09 10:43:00 Franko [facility] MR BRAIN W WO CONTRAST 2020-11-08 18:56:40 Roxanne Bhandari [facility] BASIC METABOLIC PANEL (NA, 2020-11-08 10:18:00 Abdul, Minnie [facility] [facility] [place] K, CL, CO2, GLUCOSE, BUN, Medica l Branch CREATININE, CA) CBC WITH DIFF 2020-11-08 10:18:00 Abdul, [facility] POCT GLUCOSE (AUTOMATED) 2020-11-07 14:06:00 Sondra Spicer [facility] POCT GLUCOSE (AUTOMATED) 2020-11-07 02:09:00 Sondra Spicer [facility] POCT GLUCOSE (AUTOMATED) 2020-11-06 22:49:00 Sondra Spicer [facility] POCT GLUCOSE (AUTOMATED) 2020-11-06 18:43:00 Sondra Spicer [facility] POCT GLUCOSE (AUTOMATED) 2020-11-06 14:19:00 Sondra Spicer [facility] POCT GLUCOSE (AUTOMATED) 2020-11-06 02:45:00 Sondra Spicer [facility] POCT GLUCOSE (AUTOMATED) 2020-11-05 23:16:00 Sondra Spicer [facility] POCT GLUCOSE (AUTOMATED) 2020-11-05 18:47:00 Sondra Spicer [facility] POCT GLUCOSE (AUTOMATED) 2020-11-05 15:21:00 Sondra Spicer [facility] TROPONIN I 2020-11-05 10:07:00 [facility] BASIC METABOLIC PANEL (NA, 2020-11-05 10:07:00 Annalabbhaskarprosper, [facility] K, CL, CO2, GLUCOSE, BUN, Jessie Medica [facility] Branch CREATININE, CA) CBC WITH DIFF 2020-11-05 10:07:00 [facility] TROPONIN I 2020-11-05 02:24:00 Briana Tiwari [facility] ECHO ROUTINE W/DOPPLER 2020-11-04 15:07:52 [facility] CAROT[facility] DUP[facility] BILATERAL 2020-11-04 14:36:19 Briana Tiwari [facility] BY VASCULAR LAB [facility] LIPID PANEL (78611)(TOTAL 2020-11-04 14:21:00 Briana Tiwari [facility] CHOLESTEROL, [facility] TRIGLYCERIDES, HDL) GLYCOSYLATED HEMOGLOBIN 2020-11-04 14:21:00 Briana Tiwari [facility] (A1C) [facility] URINALYSIS 2020-11-04 04:37:00 Sondra Spicer [facility] TROPONIN I 2020-11-04 04:33:00 Sondra Spicer [facility] N-TERMINAL PRO-BNP 2020-11-04 04:33:00 Sondra Spicer [facility] CREATINE KINASE 2020-11-04 00:28:00 Sean Posada [facility] CT STROKE ANGIOGRAM HEAD 2020-11-04 00:17:10 Sean Posada [facility] CT STROKE ANGIOGRAM NECK 2020-11-04 00:17:10 Sean Posada [facility] CT STROKE HEAD WO CONTRAST 2020-11-04 00:01:24 Sean Posada [facility] HB CREATININE BLOOD 2020-11-03 23:50:00 Sean Posada [facility] TROPONIN I 2020-11-03 23:49:00 Sean Posada [facility] BASIC METABOLIC PANEL (NA, 2020-11-03 23:49:00 Sean Posada [facility] K, CL, CO2, GLUCOSE, BUN, Medica l Branch CREATININE, CA) CBC WITHOUT DIFF 2020-11-03 23:49:00 Sean Posada [facility] PROTHROMBIN TIME / INR 2020-11-03 23:49:00 Sean Posada [facility] ACTIVATED PARTIAL THRMPLAS 2020-11-03 23:49:00 Sean Posada [facility] COVID-19 (ID NOW RAPID 2020-11-03 23:49:00 Sean Posada [facility] TESTING) Medical Branch LAB ONLY COVID 2020-11-03 23:49:00 Sean Posada [facility] HB ECG ROUTINE & RHYTHM 2020-11-03 23:29:45 [facility] (AUTOMATED) 2020-11-03 23:28:00 [facility] [place] CONSENT/REFUSAL FOR 2020-11-03 22:59:33 Doctor Unassigned, [facility] DIAGNOSIS AND TREATMENT [facility] NOTICE OF PRIVACY 2020-11-03 22:58:50 Doctor Unassigned, [facility] PRACTICES [facility] AGREEMENTS AUTHORIZATIONS 2020-11-03 06:01:00 Doctor Unassigned, [facility] AND IRREVOCABLE [facility] ASSIGNMENTS (FORM 2001) Appendectomy [facility] Cholecystectomy [facility] Encounters Start End Encounter Admission Attending Care Care Encounter Source Date/Time Date/Time Type Type Clinicians Facility Department ID 2019-09-15 Inpatient [facility] MED [id number] [facility] B 00:38:00 2019-05-26 Inpatient E [facility] MED [id number] MHH H 18:54:00 2020-11-15 2020-11-15 Outpatient DEE EdwardsCL HCACL G00 [id number] [facility] 16:57:54 16:57:54 Tang Clemente [facility] 2020-11-03 2020-11-12 [facility] [place] [facility] [id number] 17:16:00 19:49:00 [place] [id number] [facility] cheng [place] 4.2.7.2. 686 [facility] [id number] [facility] 109 ([facility]) 2020-11-03 2020-11-12 [facility] [place] [facility] 1.2.840 .[id number] Univers 17:16:00 19:49:00 Encounter [facility] [id number] [facility] 4.2.7.2. 686 [facility] [id number] [facility] 109 Br anch (CLC) 2020-11-03 2020-11-03 Emergency X [facility] ERT [id number] Univers 16:55:00 16:55:00 ity of [facility] 2019-09-15 2019-09-17 Inpatient nullFlavo [facility] [id number] Memoria 06:38:00 17:57:00 r Arash campoverde Dundee Herma 2019-09-15 2019-09-17 Inpatient nullFlavo [facility] [id number] Memoria 06:38:00 17:57:00 r Arash campoverde Dundee Herma 2019-09-15 2019-09-17 Outpatient Kiki SL [facility] [id number] 00:38:00 11:57:00 Alyssa Naqvi 2019-09-15 2019-09-17 Outpatient [facility], [facility] [id number] 00:38:00 11:57:00 Alyssa Martinez Donya 2019-05-26 2019-06-04 Inpatient nullFlavo [facility] [id number] Memoria 17:14:00 20:05:00 ortiz Antoine 00 [facility] 2019-05-26 2019-06-04 Inpatient fifiFlavo [facility] [id number] Memoria 17:14:00 20:05:00 r Arash 00 [facility] 2019-05-26 2019-06-04 Outpatient Carla Petty [facility] [id number] 12:14:00 15:05:00 Abhijeet 2019-05-26 2019-06-04 Outpatient Carla Petty [facility] [id number] 12:14:00 15:05:00 Abhijeet 2019-05-26 2019-05-26 Emergency nullFlavo [facility] [id number] Memoria 16:58:00 16:58:00 r Arash Goyal [facility] 2019-05-26 2019-05-26 Emergency nullFlavo [facility] [id number] Memoria 16:58:00 16:58:00 r Arash Goyal [facility] 2019-05-26 2019-05-26 Outpatient Ann-Marie [facility] [id number] 11:58:00 11:58:00 Mp Hennessy 2019-05-26 2019-05-26 Outpatient Ann-Marie [facility] [id number] 11:58:00 11:58:00 Mp Hennessy 2018-11-11 2018-11-11 [facility]patient [facility] [id number] Common 14:00:00 14:00:00 [facility] 2018-11-04 2018-11-04 Outpatient [facility] [id number] Common 14:00:00 14:00:00 [facility] 2018-10-21 2018-10-21 Outpatient [facility] [id number] Common 08:30:00 08:30:00 t [facility] Results Test Description Test Time Test Comments Results Result [facility] e Comments - CT UP EXTREM W/O 2020-11-16 CONT LT 16:39:00 [facility] : 1945 Sex: F Name: JAMES BOYER [facility] : 1945 Age/S: 75 / F [address] [place] [address] Unit #: [id number] Loc: [place] [address] Phys: Tang Giordano MD Acct: [id number] Dis Date: Status: REG CLI PHONE #: [phone] Exam Date: 11/16/2020 1237 FAX #: [phone] Reason: DISLOCATION OF LT SHOULDER. EXAMS: CPT CODE: [id number] CT UP EXTREM W/[place] [address] [place] left shoulder without contrast. INDICATION: Anterior [...] seen. Emphysematous changes partially included in the auzhi-ub-jotc in the left lung. Linear atelectasis or [...] Test (test See Comment ARU code = 8882168150) SHANIA (test code = SHANIA) < 550 [...] and clinical data available to the clinician. [facility] PRUTEST (P2Y12)2020-11-10 10:51:00 Test Item Value Reference Range Interpretation Comments VerifyNow PRUTest See_Comment [Automate d (P2Y12) (test code = message ] The 7682982210) system which generated this result transmitted reference [...] clinician. Lab Interpretation Normal (test code = 38259-9) [facility]IC PANEL (NA, K, CL, CO2, GLUCOSE, BUN, CREATININE, CA)2020-11-10 10:38:00 Test Item Value Reference Range Interpretation Comments NA (test code = 136 mmol/L 135-145 5166425385) K (test code = 3.8 mmol/L 3.5-5 4606537382) CL (test code = 97 mmol/L 98-108 L 6070712278) CO2 TOTAL (test code = 32 mmol/L 23-31 H 5492301526) AGAP (test code = 2-16 9884684643) BUN (test code = 19 mg/dL 7-23 2998444148) GLUCOSE (test code = 101 mg/dL 70-110 5755116826) CREATININE (test code = 0.89 mg/dL 0.5-1.04 1567248358) CALCIUM (test code = 9.4 mg/dL 8.6-10.6 0376650382) eGFR Calculation mL/min/1.73m2 (Non-) (test code = 4749168701) eGFR Calculation mL/min/1.73m2 () (test code = 1266750477) SHANIA (test code = SHANIA) Association of [...] tests). Lab Interpretation Abnormal (test code = 09937-1) [facility] WITH [id number] 10:31:00 Test Item Value Reference Range Interpretation Comments WBC (test code = See_Comment [Automated 3290-2) message] The sy stem which generated this [...] RDW-SD (test code = 44.4 fL 39-49.9 38286-5) RDW-CV (test code = 13.5 % 12-15.5 788-0) PLT (test code = See_Comment [Automated 777-3) message] The sy stem which generated this result transmitted reference range : 166 - 358 10*3/ ?L. The reference r maría was not used to interpret this result as normal/abnormal . MPV (test code = 10.3 fL 9.5-12.9 67247-3) NRBC/100 WBC (test See_Comment [Automat ed code = 5926209937) message] The system which generated this result transmitted reference range : 0.0 - 10.0 /100 WBCs. The refer ence range was not u sed to interpret th is result as normal/abnormal . NRBC x10^3 (test code <0.01 See_Comment [Auto mated = 3169810406) message] The s ystem which generated this result transmitted reference range : 10*3/?L. The reference range was not used to interpret this result as normal/abnormal . GRAN MAT (NEUT) % 47.5 % (test code = 770-8) IMM GRAN % (test code 0.40 % = 6498331413) LYMPH % (test code = 39.2 % 736-9) MONO % (test code = 10.1 % 5905-5) EOS % (test code = 2.3 % 713-8) BASO % (test code = 0.5 % 706-2) GRAN MAT x10^3(ANC) 4.65 10*3/uL 1.88-7.09 (test code = 0650486607) IMM GRAN x10^3 (test 0.04 10*3/uL 0-0.06 code = 0038348710) LYMPH x10^3 (test code 3.85 10*3/uL 1.32-3.29 H = 731-0) MONO x10^3 (test code 0.99 10*3/uL 0.33-0.92 H = 742-7) EOS x10^3 (test code = 0.23 10*3/uL 0.03-0.39 711-2) BASO x10^3 (test code 0.05 10*3/uL 0.01-0.07 = 704-7) Lab Interpretation Abnormal (test code = 46427-0) [facility] METABOLIC PANEL (NA, K, CL, CO2, GLUCOSE, BUN, CREATININE, CA)2020-11-09 11:04:00 Test Item Value Reference Range Interpretation Comments NA (test code = 135 mmol/L 135-145 1461153204) K (test code = 3.8 mmol/L 3.5-5 7410052760) CL (test code = 98 mmol/L 98-108 0033340152) CO2 TOTAL (test code = 32 mmol/L 23-31 H 4148490616) AGAP (test code = 2-16 2860605641) BUN (test code = 17 mg/dL 7-23 5276140368) GLUCOSE (test code = 94 mg/dL 70-110 9994624346) CREATININE (test code = 0.89 mg/dL 0.5-1.04 9498456134) CALCIUM (test code = 9.3 mg/dL 8.6-10.6 6494768203) eGFR Calculation mL/min/1.73m2 (Non-) (test code = 2258578961) eGFR Calculation mL/min/1.73m2 () (test code = 4748009470) SHANIA (test code = SHANIA) Association of [...] tests). Lab Interpretation Abnormal (test code = 07600-5) [facility] WITH [id number] 10:52:00 Test Item Value Reference Range Interpretation Comments WBC (test code = See_Comment [Automated message] 6690-2) The system DXY generated this result transmitted ref erence range: 4.30 - 1 1.10 10*3/?L. The re ference range was not u sed to interpret this result as normal/abnor mal. RBC (test code = See_Comment [Automated message] 789-8) The system DXY generated this result transmitted ref erence range: [...] RDW-SD (test code 43.8 fL 39-49.9 = 89755-7) RDW-CV (test code 13.4 % 12-15.5 = 788-0) PLT (test code = See_Comment [Automated message] 777-3) The system whic h generated this result transmitted ref erence range: 166 - 35 8 10*3/?L. The re ference range was not u sed to interpret this result as normal/abnor mal. MPV (test code = 10.1 fL 9.5-12.9 85877-5) NRBC/100 WBC (test See_Comment [Automat ed message] code = 2007452358) The syste m which generated this result transmitted ref erence range: 0.0 - 10 .0 /100 WBCs. The refer ence range was not u sed to interpret this result as normal/abnor mal. NRBC x10^3 (test <0.01 See_Comment [Automated message] code = 8661753715) The syste m which generated this result transmitted ref erence range: 10*3/?L. The reference range was not used to interpr et this result as normal/abnormal . GRAN MAT (NEUT) % 53.2 % (test code = 770-8) IMM GRAN % (test 0.40 % code = 6578364887) LYMPH % (test code 31.3 % = 736-9) MONO % (test code 11.5 % = 5905-5) EOS % (test code = 3.1 % 713-8) BASO % (test code 0.5 % = 706-2) GRAN MAT 4.05 10*3/uL 1.88-7.09 x10^3(ANC) (test code = 0422575823) IMM GRAN x10^3 0.03 10*3/uL 0-0.06 (test code = 9114761086) LYMPH x10^3 (test 2.39 10*3/uL 1.32-3.29 code = 731-0) MONO x10^3 (test 0.88 10*3/uL 0.33-0.92 code = 742-7) EOS x10^3 (test 0.24 10*3/uL 0.03-0.39 code = 711-2) BASO x10^3 (test 0.04 10*3/uL 0.01-0.07 code = 704-7) [facility] WO [id number] 19:19:05 Acute-subacute lacunar infarct involving the right [...] of the brain was obtainedbefore and following theadministration of 20 mL IV ProHance FINDINGS: The [...] of hyperintense T2/FLAIR signal in thebiconvexity deep whitematter are nonspecific but most likely representischemic small [...] involvement of the underlying calvarium. There is als oprobably mild mass effect on the temporal pole [...] voids for the major intracranial vessels areunremarkable. [facility], Radiant Results Inft User - 11/08/2020 [...] are nonspecific but most likely representischemic small vesselchanges. Remote lacunar infarcts are noted in thebilateral [...] involvement of the underlying calvarium. There is alsoprobably mild mass effect [...] gliosis in the underlyingtemporal pole.Background mild global volumeloss and mild ischemic small vessel diseaseUnKnapp Medical CenterBACARROLL [facility] METABOLIC PANEL (NA, K, CL, CO2, GLUCOSE, BUN, CREATININE, CA)2020-11-08 10:43:00 Test Item Value Reference Range Interpretation Comments NA (test code = 135 mmol/L 135-145 6013489097) K (test code = 3.8 mmol/L 3.5-5 1952613119) CL (test code = 98 mmol/L 98-108 5596483707) CO2 TOTAL (test code = 31 mmol/L 23-31 4594541788) AGAP (test code = 2-16 4543467363) BUN (test code = 18 mg/dL 7-23 8012503883) GLUCOSE (test code = 99 mg/dL 70-110 8358075602) CREATININE (test code 0.95 mg/dL 0.5-1.04 = 7813107463) CALCIUM (test code = 9.4 mg/dL 8.6-10.6 3105574342) eGFR Calculation mL/min/1.73m2 (Non-) (test code = 0943360305) eGFR Calculation mL/min/1.73m2 () (test code = 8578588839) SHANIA (test code = SHANIA) Association of [...] or urine or abnormalities in imaging tests). [facility] WITH [id number] 10:25:00 Test Item Value Reference Range Interpretation Comments WBC (test code = See_Comment [Automated 7345-2) message] The sy stem which generated this result transmitted reference range : 4.30 - 11.10 10*3/?L. The reference range was not used to interpret this result as normal/abnormal . RBC (test code = See_Comment [Automated 739-8) message] The sy stem which generated this [...] RDW-SD (test code = 44.1 fL 39-49.9 22637-1) RDW-CV (test code = 13.3 % 12-15.5 788-0) PLT (test code = See_Comment H [Automated 777-3) message] The sy stem which generated this result transmitted reference range : 166 - 358 10*3/ ?L. The reference r maría was not used to interpret this result as normal/abnormal . MPV (test code = 10.0 fL 9.5-12.9 15547-3) NRBC/100 WBC (test See_Comment [Automat ed code = 8595161602) message] The system which generated this result transmitted reference range : 0.0 - 10.0 /100 WBCs. The refer ence range was not u sed to interpret th is result as normal/abnormal . NRBC x10^3 (test code <0.01 See_Comment [Auto mated = 9397545001) message] The s ystem which generated this result transmitted reference range : 10*3/?L. The reference range was not used to interpret this result as normal/abnormal . GRAN MAT (NEUT) % 54.7 % (test code = 770-8) IMM GRAN % (test code 0.10 % = 0450891110) LYMPH % (test code = 31.2 % 736-9) MONO % (test code = 11.0 % 5905-5) EOS % (test code = 2.6 % 713-8) BASO % (test code = 0.4 % 706-2) GRAN MAT x10^3(ANC) 4.55 10*3/uL 1.88-7.09 (test code = 1798887494) IMM GRAN x10^3 (test <0.03 0-0.06 code = 9766918258) LYMPH x10^3 (test code 2.59 10*3/uL 1.32-3.29 = 731-0) MONO x10^3 (test code 0.91 10*3/uL 0.33-0.92 = 742-7) EOS x10^3 (test code = 0.22 10*3/uL 0.03-0.39 711-2) BASO x10^3 (test code 0.03 10*3/uL 0.01-0.07 = 704-7) Lab Interpretation Abnormal (test code = 02239-5) [facility] COVID [id number] 05:02:00COVID DMT InterpretationInterpretation/Recommendations: Molecular NAAT Tests for [...] week of symptoms). Tests for IgM and/or IgG Antibodies to the SARS-CoV-2 Virus: If the patient develops COVID-19 illness in the future, testing for IgM and IgG antibodies approximately 3 weeks [...] Interpretation Result Comments:These interpretation comments are based upon all COVID-19 testing the patient has had at [facility], including molecular NAAT testing (more commonly known as PCR testing and Rapid ID Now testing) and antibody testing. It does not take into account any testingthat a patient has had outside of the [facility] medical record. [facility] SERVICESCOVID [id number]-[id number] Rapid ID NOW (no units) ? ? Date ? Value ? 11/03/2020 ? Not Detected ? [facility] GLUCOSE (AUTOMATED)2020-11-07 14:07:00 Test Item Value Reference Range Interpretation Comments POCT GLU (test code = 7340377510) 93 mg/dL 70-110 Lab Interpretation (test code = Normal 22785-1) [facility] GLUCOSE (AUTOMATED)2020-11-07 02:11:00 Test Item Value Reference Range Interpretation Comments POCT GLU (test code = 4293709102) 109 mg/dL 70-110 Lab Interpretation (test code = Normal 68129-0) [facility] GLUCOSE (AUTOMATED)2020-11-06 22:50:00 Test Item Value Reference Range Interpretation Comments POCT GLU (test code = 1399419431) 119 mg/dL 70-110 H Lab Interpretation (test code = Abnormal 02446-9) [facility] GLUCOSE (AUTOMATED)2020-11-06 18:52:00 Test Item Value Reference Range Interpretation Comments POCT GLU (test code = 4260874277) 101 mg/dL 70-110 Lab Interpretation (test code = Normal 51043-6) [facility] GLUCOSE (AUTOMATED)2020-11-06 14:19:00 Test Item Value Reference Range Interpretation Comments POCT GLU (test code = 5970096366) 100 mg/dL 70-110 Lab Interpretation (test code = Normal 61485-4) [facility] GLUCOSE (AUTOMATED)2020-11-06 02:46:00 Test Item Value Reference Range Interpretation Comments POCT GLU (test code = 6746810293) 89 mg/dL 70-110 Lab Interpretation (test code = Normal 50774-2) [facility] GLUCOSE (AUTOMATED)2020-11-05 23:17:00 Test Item Value Reference Range Interpretation Comments POCT GLU (test code = 7679759558) 101 mg/dL 70-110 Lab Interpretation (test code = Normal 25438-8) [facility] GLUCOSE (AUTOMATED)2020-11-05 18:49:00 Test Item Value Reference Range Interpretation Comments POCT GLU (test code = 1464013092) 110 mg/dL 70-110 Lab Interpretation (test code = Normal 76960-2) [facility]2020-[facility] 15:22:00 Test Item Value Reference Range Interpretation Comments POCT GLU (test code = 0374278736) 100 mg/dL 70-110 Lab Interpretation (test code = Normal 04244-6) [facility] [id number] 11:16:00 Test Item Value Reference Range Interpretation Comments TROPONIN I (test 0.061 ng/mL See_Comment H [Automated code = 7671080603) message] The system which generated this result [...] ? Lab Interpretation Abnormal (test code = 29140-3) [facility] (NA, K, CL, CO2, GLUCOSE, BUN, CREATININE, CA)2020-11-05 10:30:00 Test Item Value Reference Range Interpretation Comments NA (test code = 138 mmol/L 135-145 3525518318) K (test code = 3.2 mmol/L 3.5-5 L 4297749313) CL (test code = 98 mmol/L 98-108 5700739553) CO2 TOTAL (test code = 32 mmol/L 23-31 H 3249438789) AGAP (test code = 2-16 4162532862) BUN (test code = 29 mg/dL 7-23 H 4654698851) GLUCOSE (test code = 106 mg/dL 70-110 9706263899) CREATININE (test code = 1.18 mg/dL 0.5-1.04 H 7046541368) CALCIUM (test code = 9.3 mg/dL 8.6-10.6 3994600201) eGFR Calculation mL/min/1.73m2 (Non-) (test code = 8281457894) eGFR Calculation mL/min/1.73m2 () (test code = 5326045966) SHANIA (test code = SHANIA) Association of [...] tests). Lab Interpretation Abnormal (test code = 85332-1) [facility] WITH [id number] 10:17:00 Test Item Value Reference Range Interpretation [...] RDW-SD (test code = 45.7 fL 39-49.9 79388-3) RDW-CV (test code = 13.6 % 12-15.5 788-0) PLT (test code = See_Comment H [Automated 777-3) message] The sy stem which generated this result transmitted reference range : 166 - 358 10*3/ ?L. The reference r maría was not used to interpret this result as normal/abnormal . MPV (test code = 10.3 fL 9.5-12.9 56736-7) NRBC/100 WBC (test See_Comment [Automat ed code = 6359023937) message] The system which generated this result transmitted reference range : 0.0 - 10.0 /100 WBCs. The refer ence range was not u sed to interpret th is result as normal/abnormal . NRBC x10^3 (test code <0.01 See_Comment [Auto mated = 1843293636) message] The s ystem which generated this result transmitted reference range : 10*3/?L. The reference range was not used to interpret this result as normal/abnormal . GRAN MAT (NEUT) % 53.2 % (test code = 770-8) IMM GRAN % (test code 0.40 % = 8795997924) LYMPH % (test code = 31.6 % 736-9) MONO % (test code = 10.8 % 5905-5) EOS % (test code = 3.4 % 713-8) BASO % (test code = 0.6 % 706-2) GRAN MAT x10^3(ANC) 5.24 10*3/uL 1.88-7.09 (test code = 8979223808) IMM GRAN x10^3 (test 0.04 10*3/uL 0-0.06 code = 7331356677) LYMPH x10^3 (test code 3.11 10*3/uL 1.32-3.29 = 731-0) MONO x10^3 (test code 1.06 10*3/uL 0.33-0.92 H = 742-7) EOS x10^3 (test code = 0.33 10*3/uL 0.03-0.39 711-2) BASO x10^3 (test code 0.06 10*3/uL 0.01-0.07 = 704-7) Lab Interpretation Abnormal (test code = 46338-5) [id number] Test Item Value Reference Range Interpretation Comments TROPONIN I (test 0.085 ng/mL See_Comment H [Automated code = 5808840020) message] The system which generated this result [...] ? Lab Interpretation Abnormal (test code = 25171-1) [facility] (A1C)2020-11-04 21:45:00 Test Item Value Reference Range Interpretation Comments HGB A1C (test code = 5.2 % 4-6 4548-4) SHANIA (test code = SHANIA) %A1C (NGSP) Interpretation (ADA)4.8-5.6 ? ? Normal or (Non-Diabetic Range)5.7-6.4 ? ? Increased Risk (Pre-Diabetic)>6.5 ?Diabetes Indicated Lab Interpretation Normal (test code = 47978-2) [facility] SystemLIP[facility] (84150)(TOTAL CHOLESTEROL, TRIGLYCERIDES, HDL)2020-11-04 14:39:00 Test Item Value Reference Range Interpretation Comments CHOL (test code = 139 mg/dL 120-200 7471450450) HDL (test code = 36 mg/dL >50 L 0641035078) HDLC RATIO (test code = See_Comment [Au tomated message] 1064036246) The system DXY generated this result transmit maria c reference range : <=4.5. The refe rence range was not u sed to interpret th is result as normal/abnormal . TRIG (test code = 99 mg/dL 30-170 3767183138) LDL CHOL (test code = 83 mg/dL See_Comment [Auto mated message] 14305-1) The system DXY generated this result transmit maria c reference range : <=160. The refe rence range was not u sed to interpret th is result as normal/abnormal . VLDL (test code = 20 mg/dL 5-60 0872177139) Lab Interpretation (test Abnormal code = 96317-9) [facility] SystemPOCT [id number] 14:29:00 Test Item Value Reference Range Interpretation Comments POCT Creatinine (test code = 1.7 mg/dL 0.5-1.1 H 7266382290) Lab Interpretation (test code = Abnormal 58530-1) [facility] SystemTR[facility] [id number] 05:41:00 Test Item Value Reference Range Interpretation Comments TROPONIN I (test 0.132 ng/mL See_Comment H [Automated code = 6203852728) message] The system which generated this result [...] ? Lab Interpretation Abnormal (test code = 69987-7) [facility] SystemN-TERMINAL [id number] 05:15:00 Test Item Value Reference Range Interpretation Comments NT-proBNP (test code 820 pg/mL See_Comment H [Autom ated = 3195467782) message] The system which generated this result transmitted reference range : <=450. The reference range was not used to interpret this result as normal/abnormal . SHANIA (test code = SHANIA) Biotin has been reported to cause a negative bias, interpret results relative to patient's use of biotin. Lab Interpretation Abnormal (test code = 31108-4) [facility] SystemURINALYSIS2021-02-18 05:06:00 Test Item Value Reference Range Interpretation Comments APPEARANCE (test code = Clear Clear 4703983475) COLOR (test code = Yellow Yellow 0330472007) PH (test code = 4.8-8.0 7789649155) SP GRAVITY (test code = 1.003-1.030 H 2410797474) GLU U QUAL (test code = Normal Normal 2406366970) BLOOD (test code = Negative Negative 5414503194) KETONES (test code = Negative Negative 7244601640) PROTEIN (test code = Negative Negative 2887-8) UROBILIN (test code = Normal Normal 3074262087) BILIRUBIN (test code = Negative Negative 6383047173) NITRITE (test code = Positive Negative A 9668506194) LEUK CHUY (test code = 75/uL Negative A 9970316368) RBC/HPF (test code = See_Comment [Autom ated message] 0552976663) The system DXY generated this result transmitted ref erence range: 0 - 3 HP F. The reference range was not used to int erpret this result as normal/abnormal . WBC/HPF (test code = See_Comment H [Autom ated message] 2966314977) The system DXY generated this result transmitted ref erence range: 0 - 5 HP F. The reference range was not used to int erpret this result as normal/abnormal . BACTERIA (test code = Few Negative A 6957655347) MUCOUS (test code = Slight Negative LPF A 2968686726) SQ EPITH (test code = <1 HPF 7876840040) HYAL CAST (test code = See_Comment H [Aut omated message] 7328946274) The system DXY generated this result transmitted ref erence range: <=2 LPF. The reference range was not used to int erpret this result as normal/abnormal . Lab Interpretation (test Abnormal code = 05042-7) [facility] ANG[facility] [id number] 01:07:06 No proximal large vessel occlusion or [...] for review. FINDINGS: CTA HEAD: The PICA originis visualized on the left. Right PICA AICA variant issuspected. Trace atherosclerosis of the right V4 vertebral artery segmentwithout flow-limiting stenosis. The basilar artery is normal in caliber.Thesuperior cerebellar arteries are unremarkable. The posterior cerebralarteries are unremarkable. Atherosclerotic calcifications of the carotid siphons without flow- limitingstenosis. Mild fusiform ectasia of the right cavernous carotid segment. Thedistal cervical, petrous, cavernous and supraclinoid internal carotidarteries are otherwise unremarkable. Incidental note is made ofpneumatization of the infe rior aspect of the left anterior clinoid as [...] the great vessel ostia without significantluminal narrowing. Moderate stenosis of the right subclavian origin fromthe [...] The visualized lung fair down to moderate emphysematouschanges andinterlobular septal thickening which may reflect scarring. [facility], Radiant Results Inft User - 11/03/2020 7:08 PM CSTCT STROKE ANGIOGRAM HEAD, CT STROKE ANGIOGRAM NECKHISTORY: Female 75 years Acute Stroke Rad: please obtain POCT creatinineprior to CTA head/neckCOMPARISON: NoneTECHNIQUE: . CT angiographic images of the head and neck were obtainedafter administration of IV contrast. Multiplanar reformats includingmaximum intensity projection images submitted for review.FINDINGS:CTA HEAD:The PICA origin is visualized on the left. Right PICA AICA variant issuspected. Trace atherosclerosis of the right V4 vertebral artery segmentwithout flow-limiting stenosis. The basilar artery is normal in ca liber.The superior cerebellar arteries are unremarkable. The posterior cerebralarteries are unremarkable. Atherosclerotic calcifications of the carotid siphons without flow-limitingstenosis. Mild fusiform ectasia of the right cavernous carotid segment. Thedistal cervical, petrous, cavernous and supracl inoid internal carotidarteries are otherwise unremarkable. Incidental note is made ofpneumatization of the inferior aspect of the left anterior clinoid as wellas the basisphenoid, right more than left,in the regions of the leftparaclinoid and right distal petrous ICA segments, respectively.Theanterior and middle cerebral arteries are unremarkable.No evidence of filling defect in the major dural venous sinuses.CT ANGIOGRAM NECK:Classic three-vessel arch anatomy identified. Atherosclerotic calcificationof the aortic arch extending to the great vessel ostia without significantluminal narrowing. Moderate stenosis of the right subclavian origin fromthe innominate. Remainder of the subclavian arteries demonstrate normalcontrast opacification.Medialization of the proximal right [...] septal thickening which may reflect scarring.IMPRESSIONNo proximal largevessel occlusion or flow-limiting intracranial stenosisidentified. 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 Otherwise,no flow-limiting extra cranial stenosis identified.[facility] [id number] 01:07:06 No proximal large vessel occlusion or [...] obtainedafter administration of IV contrast. Multiplanar reformats in cludingmaximum intensity projection images submitted for review. FINDINGS: CTA HEAD: The PICA originis visualized on the left. Right PICA AICA variant issuspected. Trace atherosclerosis of the right V4 vertebral artery segmentwithout flow-limiting stenosis. The basilar artery is normal in caliber.Thesuperior cerebellar arteries are unremarkable. The posterior cerebralarteries are unremarkable. Atherosclerotic calcifications of the carotid siphons without flow-limitingstenosis. Mild fusiform ectasia of the right cavernous carotid segment. Thedistal cervical, petrous, cavernous and supraclinoid internal carotidarteries are otherwise unremarkable. Incidental note [...] the great vessel ostia without significantluminal narrowing. Moderate stenosis of the right subclavian origin fromthe [...] The visualized lung fair down to moderate emphysematouschanges andinterlobular septal thickening which may reflect scarring. [facility], Radiant Results Inft User - 11/03/2020 7:08 PM CSTCT STROKE ANGIOGRAM HEAD, CT STROKE ANGIOGRAM NECKHISTORY: Female 75 years Acute Stroke Rad: please obtain POCT creatinineprior to CTA head/neckCOMPARISON: NoneTECHNIQUE: . CT angiographic images of the head and neck were obtainedafter administration of IV contrast. Multiplanar reformats includingmaximum intensity projection images submitted for review.FINDINGS:CTA HEAD:The PICA origin is visualized on the left. Right PICA AICA variant issuspected. Trace atherosclerosis of the right V4 vertebral artery segmentwithout flow-limiting stenosis. The basilar artery is normal in ca liber.The superior cerebellar arteries are unremarkable. The posterior cerebralarteries are unremarkable. Atherosclerotic calcifications of the carotid siphons without flow-limitingstenosis. Mild fusiform ectasia of the right cavernous carotid segment. Thedistal cervical, petrous, cavernous and supracl inoid internal carotidarteries are otherwise unremarkable. Incidental note is made ofpneumatization of the inferior aspect of the left anterior clinoid as wellas the basisphenoid, right more than left,in the regions of the leftparaclinoid and right distal petrous ICA segments, respectively.Theanterior and middle cerebral arteries are unremarkable.No evidence of filling defect in the major dural venous sinuses.CT ANGIOGRAM NECK:Classic three-vessel arch anatomy identified. Atherosclerotic calcificationof the aortic arch extending to the great vessel ostia without significantluminal narrowing. Moderate stenosis of the right subclavian origin fromthe innominate. Remainder of the subclavian arteries demonstrate normalcontrast opacification.Medialization of the proximal right [...] septal thickening which may reflect scarring.IMPRESSIONNo proximal largevessel occlusion or flow-limiting intracranial stenosisidentified. 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 Otherwise,no flow-limiting extra cranial stenosis identified.[facility] SystemCREAT[facility] KINASE 2020-11-04 00:47:00 Test Item Value Reference Range Interpretation Comments CK (test code = 4078723052) 146 U/L 33-194 Lab Interpretation (test code = Normal 21599-7) [facility] SystemCT [facility] HEAD WO [id number] 00:26:00 Hypodensities noted in the right valentin [...] with hyperostosis of the underlying calvarium and isfavoredto reflect a essentially calcified meningioma. Similar appearingextra-axial lesion at the left temporoparietal junction with smoothscalloping/remodeling of the overlying calvarium measuring 2.9 x 2.2 x 2.3(AP X TV X CC) also favored to reflect meningioma. The ventricles and sulci are normal in size and configuration. Nointracranial abnormality such as hemorrhage, midline shift, hydrocephalusorextra axial fluid collection is appreciated. The basal cisterns arepatent. Hypodensities in the right valentin radiata and right basal ganglia.Hypodensity in the right subinsular/external capsular region, likelyreflecting remote lacunar infarct. The calvarium and skull base are intact.Osseous protuberance arising from the midline frontal calvarium measuring2.5 x 0.7 cm likely reflecting osteoma. The paranasal sinuses and mastoidair cells are clear. [facility], Radiant Results Inft User - 11/03/2020 6:27 PM CSTCT HEAD WITHOUT CONTRASTHISTORY: Neuro deficit, acute, stroke suspected COMPARISON: None.TECHNIQUE: CT axial images of the head were obtained from vertex to skullbase. Multiplanar reformats were submitted for review.FINDINGS:Calcified nodular right inferior frontal extra-axial lesion in the regionofsylvian fissure noted measuring 2.5 x 2.0 x 2.7 cm (AP X TV X CC). Thisis associated with hyperostosis of the underlying calvarium and is favoredto reflect a essentially calcified meningioma. Similar appearingextra-axial lesion at the left temporoparietal junction with smoothscalloping/remodeling of the overlying calvarium measuring 2.9 x 2.2 x 2.3(AP X TV X CC) also favored to reflect meningioma.Theventricles and sulci are normal in size and configuration. Nointracranial abnormality such as hemorrhage, midline shift, hydrocephalusor extra axial fluid collection is appreciated. The basal cisterns a repatent.Hypodensities in the right valentin radiata and right basal ganglia.Hypodensity in the right subinsular/external capsular region, likelyreflecting remote lacunar infarct. The calvarium and skullbase are intact.Osseous protuberance arising from the midline frontal calvarium measuring2.5 x 0.7 cm likely reflecting osteoma. The paranasal sinuses and mastoidair cells are clear.IMPRESSIONHypodensities noted in the right valentin radiata and right basal ganglia maybe chronic but are technically age i ndeterminate. Suggest clinicalcorrelation and further evaluation with MRI, as clinically directed.Partially calcified extra-axial lesions identified in the inferior rightfrontal region and left temporal occipital junction, likely calcifiedmeningiomas.[facility] SystemaP[facility] - Code Stroke 2020-11-04 00:25:00 Test Item Value Reference Range Interpretation Comments APTT Patient (test See_Comment [Automat ed code = 3173-2) message] The system which generated this result transmitted reference range : 23 - 38 Seconds . The reference range was not used to interpr et this result as normal/abnormal . SHANIA (test code = SHANIA) The [facility] patient population mean normal value for aPTT is 30 seconds. Lab Interpretation Normal (test code = 89571-7) [facility] SystemProthrombin Time / INR - Code [id number] 00:23:00 Test Item Value Reference Range Interpretation [...] tions. Lab Interpretation (test Normal code = 41097-5) [facility] SystemTroponin I - Code [id number] 00:17:00 Test Item Value Reference Range Interpretation Comments TROPONIN I (test 0.130 ng/mL See_Comment H [Automated code = 7729485573) message] The system which generated this result [...] ? Lab Interpretation Abnormal (test code = 43250-8) [facility] System[facility]OVID[facility] (ID NOW RAPID TESTING)2020-11-04 00:10:00 Test Item Value Reference Range Interpretation Comments SARS-CoV-2 Rapid ID NOW Not Detected Not Detected (test code = 20821-8) SHANIA (test code = SHANIA) ID NOW COVID-19 Assay is an isothermal nucleic acid amplification test intended for the qualitative detection of nucleic acid from SARS-CoV-2 viral RNA in nasopharyngeal (MANAGER OF [employer]ANNING) specimens. It is used under Emergency Use [...] indicated. Lab Interpretation Normal (test code = 85143-1) [facility] (NA, K, CL, CO2, Glucose, BUN, Creatinine, CA) - Code [id number] 00:06:00 Test Item Value Reference Range Interpretation Comments NA (test code = 137 mmol/L 135-145 8779352405) K (test code = 3.1 mmol/L 3.5-5 L 7535925991) CL (test code = 91 mmol/L 98-108 L 5066637330) CO2 TOTAL (test code = 36 mmol/L 23-31 H 5698118633) AGAP (test code = 2-16 7024908296) BUN (test code = 30 mg/dL 7-23 H 4774232418) GLUCOSE (test code = 109 mg/dL 70-110 1245977297) CREATININE (test code = 1.70 mg/dL 0.5-1.04 H 9967490592) CALCIUM (test code = 9.4 mg/dL 8.6-10.6 5416257283) eGFR Calculation mL/min/1.73m2 (Non-) (test code = 4317770029) eGFR Calculation mL/min/1.73m2 () (test code = 6718375203) SHANIA (test code = SHANIA) Association of [...] tests). Lab Interpretation Abnormal (test code = 41044-8) [facility] without Diff - Code [id number] 23:55:00 Test Item Value Reference Range Interpretation Comments WBC (test code = 6690-2) See_Comment H [A utomated message] The system DXY generated this result transmit maria c reference range : 4.30 - 11.10 10*3/?L. The reference range was not used to interpret this result as normal/abnormal . RBC (test code = 789-8) See_Comment [Au tomated message] The system DXY generated this result transmit maria c reference [...] See_Comment H [Au tomated message] The system DXY generated this result transmit maria c reference range : 166 - 358 10*3/?L. The reference range was not used to interpret this result as normal/abnormal . MPV (test code = 10.4 fL 9.5-12.9 95758-9) RDW-CV (test code = 13.6 % 12-15.5 788-0) RDW-SD (test code = 45.1 fL 39-49.9 68169-9) NRBC x10^3 (test code = <0.01 See_Comment [Au tomated message] 3238559950) The system [employer] h generated this result transmit maria c reference range : 10*3/?L. The reference range was not used to interpret this result as normal/abnormal . NRBC/100 WBC (test code See_Comment [Au tomated message] = 3391003688) The system [employer] ch generated this result transmit maria c reference range : 0.0 - 10.0 /100 WBC s. The reference r maría was not used to interpret this result as normal/abnormal . IPF % (test code = 4912468703) Lab Interpretation (test Abnormal code = 47369-5) [facility] (AUT[facility]ATED)2020-11-03 23:36:00 Test Item Value Reference Range Interpretation Comments POCT GLU (test code = 9975035750) 123 mg/dL 70-110 H Lab Interpretation (test code = Abnormal 05586-4) [facility] SystemCHEM [id number] 00:06:00 Test Item Value Reference Range Interpretation Comments Ammonia (test code = Ammonia) 12.0 [facility] [id number] 00:06:00 Test Item Value Reference Range Interpretation Comments D-Dimer (test code = D-Dimer) 3.11 [facility] CenterCHEM [id number] 00:06:00 Test Item Value Reference Range Interpretation Comments Ammonia (test code = Ammonia) 12.0 [facility] [id number] 00:06:00 Test Item Value Reference Range Interpretation Comments D-Dimer (test code = D-Dimer) 3.11 [facility] CenterCARDIAC [id number] 15:23:00 Test Item Value Reference Range Interpretation Comments Troponin-I (test code 0.16 See_Comment [Auto mated message] The = Troponin-I) system which g enerated this result transmit maria c reference range : <=0.40. The reference r maría was not used to interpr et this result as karthikeyan l/abnormal. [facility] CenterannCARDIAC [id number] 15:23:00 Test Item Value Reference Range Interpretation Comments Troponin-I (test code 0.16 See_Comment [Auto mated message] The = Troponin-I) system which g enerated this result transmit maria c reference range : <=0.40. The reference r maría was not used to interpr et this result as karthikeyan l/abnormal. [facility] CenterannBACTERIAL - [id number] 12:33:00 Test Item Value Reference Range Interpretation Comments Source Strep (test code Urine *NA*(09/15/19 = Source Strep) 6:33 AM) [facility] CenterannBACTERIAL - [id number] 12:33:00 Test Item Value Reference Range Interpretation Comments Strep pneumoniae Ag Negative (09/15/19 (test code = Strep 6:33 AM) pneumoniae Ag) [facility] [id number] 12:33:00 Test Item Value Reference Range Interpretation Comments Source Respiratory Nasophrngl Swb Panel PCR (test code = *NA*(09/15/19 6:33 AM) Source Respiratory Panel PCR) [facility] [id number] 12:33:00 Test Item Value Reference Range Interpretation Comments Influenza A PCR (test Negative *NA*(09/15/19 code = Influenza A PCR) 6:33 AM) [facility] [id number] 12:33:00 Test Item Value Reference Range Interpretation Comments Influenza B PCR (test Negative *NA*(09/15/19 code = Influenza B PCR) 6:33 AM) [facility] [id number] 12:33:00 Test Item Value Reference Range Interpretation Comments RSV PCR (test code = Negative *NA*(09/15/19 RSV PCR) 6:33 AM) [facility] [id number] 12:33:00 Test Item Value Reference Range Interpretation Comments Source Strep (test code Urine *NA*(09/15/19 = Source Strep) 6:33 AM) [facility]ann[facility] - [id number] 12:33:00 Test Item Value Reference Range Interpretation Comments Strep pneumoniae Ag Negative (09/15/19 (test code = Strep 6:33 AM) pneumoniae Ag) [facility] [id number] 12:33:00 Test Item Value Reference Range Interpretation Comments Source Respiratory Nasophrngl Swb Panel PCR (test code = *NA*(09/15/19 6:33 AM) Source Respiratory Panel PCR) [facility] [id number] 12:33:00 Test Item Value Reference Range Interpretation Comments Influenza A PCR (test Negative *NA*(09/15/19 code = Influenza A PCR) 6:33 AM) [facility] [id number] 12:33:00 Test Item Value Reference Range Interpretation Comments Influenza B PCR (test Negative *NA*(09/15/19 code = Influenza B PCR) 6:33 AM) [facility] [id number] 12:33:00 Test Item Value Reference Range Interpretation Comments RSV PCR (test code = Negative *NA*(09/15/19 RSV PCR) 6:33 AM) [facility] [id number] 10:31:00 Test Item Value Reference Range Interpretation Comments Vitamin B12 Lvl (test code = Vitamin [phone] B12 Lvl) [facility] [id number] 10:31:00 Test Item Value Reference Range Interpretation Comments Troponin-I (test code 0.18 See_Comment [Auto mated message] The = Troponin-I) system which g enerated this result transmit maria c reference range : <=0.40. The reference r maría was not used to interpr et this result as karthikeyan l/abnormal. [facility] CenterSojern [id number] 10:31:00 Test Item Value Reference Range Interpretation Comments Phosphorus (test code = Phosphorus) 4.4 2.5-4.5 [facility]2019-12-30 10:31:00 Test Item Value Reference Range Interpretation Comments Magnesium Lvl (test code = Magnesium 2.2 1.8-2.4 Lvl) [facility] [id number] 10:31:00 Test Item Value Reference Range Interpretation Comments Glucose Lvl (test code = Glucose Lvl) 146 70-99 [facility]2019-12-30 10:31:00 Test Item Value Reference Range Interpretation Comments BUN (test code = BUN) 14 7-22 [facility]2019-12-30 10:31:00 Test Item Value Reference Range Interpretation Comments Creatinine Lvl (test code = Creatinine 0.94 0.50-1.40 Lvl) [facility]2019-12-30 10:31:00 Test Item Value Reference Range Interpretation Comments Sodium Lvl (test code = Sodium Lvl) 140 135-145 [facility]2019-12-30 10:31:00 Test Item Value Reference Range Interpretation Comments Potassium Lvl (test code = Potassium 3.9 3.5-5.1 Lvl) [facility]2019-12-30 10:31:00 Test Item Value Reference Range Interpretation Comments Chloride Lvl (test code = Chloride Lvl) 103 95-109 [facility]2019-12-30 10:31:00 Test Item Value Reference Range Interpretation Comments CO2 (test code = CO2) 28 24-32 [facility]2019-12-30 10:31:00 Test Item Value Reference Range Interpretation Comments Calcium Lvl (test code = Calcium Lvl) 9.2 8.5-10.5 [facility]2019-12-30 10:31:00 Test Item Value Reference Range Interpretation Comments eGFR (test code = eGFR) 59 [facility]2019-12-30 10:31:00 Test Item Value Reference Range Interpretation Comments AGAP (test code = AGAP) 12.9 10.0-20.0 [facility]2019-12-30 10:31:00 Test Item Value Reference Range Interpretation Comments Procalcitonin Lvl (test 3.83 See_Comment [Au tomated message] code = Procalcitonin Lvl) e system which generated this result transmitted ref erence range: <=0.10. The reference range was not used to interpr et this result as normal/abnormal . [facility]2019-12-30 10:31:00 Test Item Value Reference Range Interpretation Comments Lactic Acid Lvl (test code = Lactic 1.5 0.5-2.2 Acid Lvl) [facility] Hos[id number] 10:31:00 Test Item Value Reference Range Interpretation Comments Segs (test code = Segs) 91.2 45.0-75.0 [facility] Hospit[id number] 10:31:00 Test Item Value Reference Range Interpretation Comments Lymphocytes (test code = Lymphocytes) 7.5 20.0-40.0 [facility] Hospit[id number] 10:31:00 Test Item Value Reference Range Interpretation Comments Monocytes (test code = Monocytes) 1.2 2.0-12.0 [facility] HospitalFeegpmpUBBVRHVQSA2852-16-93 10:31:00 Test Item Value Reference Range Interpretation Comments Basophils (test code = 0.1 See_Comment [Aut omated message] The Basophils) system which ge nerated this result tra nsmitted reference range : <=1.0. The reference r maría was not used to int erpret this result as normal/abnormal . [facility] HospitalNrtmapfPLUXSMZRGI8935-27-39 10:31:00 Test Item Value Reference Range Interpretation Comments Neutrophils # (test code = Neutrophils 9.4 1.5-8.1 #) [facility] HospitalWjitifdPVUZPKSBLO8677-30-98 10:31:00 Test Item Value Reference Range Interpretation Comments Lymphocytes # (test code = Lymphocytes 0.8 1.0-5.5 #) [facility] HospitalVvkitbxXFFEPRCJHH2316-65-29 10:31:00 Test Item Value Reference Range Interpretation Comments Monocytes # (test code 0.1 See_Comment [Aut omated message] The = Monocytes #) system which generated this result tra nsmitted reference range : <=0.8. The reference r maría was not used to int erpret this result as normal/abnormal . [facility] HospitalFavsftsMKHJHJITTT3288-91-40 10:31:00 Test Item Value Reference Range Interpretation Comments WBC (test code = WBC) 10.3 3.7-10.4 [facility] HospitalTqgntgoKGAWFNVUXP3165-17-81 10:31:00 Test Item Value Reference Range Interpretation Comments RBC (test code = RBC) 4.13 4.20-5.40 [facility] HospitalJhpdpamKFAILJQAYC4577-21-87 10:31:00 Test Item Value Reference Range Interpretation Comments Hgb (test code = Hgb) 12.8 12.0-16.0 [facility] HospitalHxbmdhuGBJLYVORTJ7890-66-75 10:31:00 Test Item Value Reference Range Interpretation Comments Hct (test code = Hct) 38.6 36.0-48.0 [facility] HospitalCshinvlJBTYCQIJGQ5575-06-21 10:31:00 Test Item Value Reference Range Interpretation Comments MCV (test code = MCV) 93.7 80.0-98.0 [facility] HospitalOeqiqdoSIJFEKVUUD6207-09-60 10:31:00 Test Item Value Reference Range Interpretation Comments MCH (test code = MCH) 31.0 pg 27.0-31.0 [facility] CenterZnorpkyLCGETRTJTP0108-33-12 10:31:00 Test Item Value Reference Range Interpretation Comments MCHC (test code = MCHC) 33.1 32.0-36.0 [facility]YddhsmbZSJIGOUVXB7360-67-50 10:31:00 Test Item Value Reference Range Interpretation Comments RDW (test code = RDW) 15.4 11.5-14.5 [facility] CenterNxffxtyFJMZUZUVOQ8349-36-58 10:31:00 Test Item Value Reference Range Interpretation Comments Platelet (test code = Platelet) 388 133-450 [facility] HospitalLlxkaviBBPCPUFYRQ3054-73-20 10:31:00 Test Item Value Reference Range Interpretation Comments MPV (test code = MPV) 8.3 7.4-10.4 [facility] CenterXfreiyaBFBNZI5655-54-96 10:31:00 Test Item Value Reference Range Interpretation Comments CHD Risk (test code = CHD Risk) 2.87 1 3.90-5.80 [facility] CenterSzzzyoxCBPLOB8035-06-00 10:31:00 Test Item Value Reference Range Interpretation Comments Trig (test code = Trig) 52 [facility] CenterSvixqegOMUNFZ6149-91-76 10:31:00 Test Item Value Reference Range Interpretation Comments Chol (test code = Chol) 172 [facility] CenterNptswxePPIZHL9979-43-77 10:31:00 Test Item Value Reference Range Interpretation Comments HDL (test code = HDL) 60 [facility] CenterHgovdmdYNPTTV8918-68-83 10:31:00 Test Item Value Reference Range Interpretation Comments LDL (Calculated) (test code = LDL 102 (Calculated)) [facility] CenterUckabzxFZYKNN2146-14-86 10:31:00 Test Item Value Reference Range Interpretation Comments VLDL (test code = VLDL) [address] [facility] CenterSPECIAL [id number] 10:31:00 Test Item Value Reference Range Interpretation Comments Hgb A1C (test code = Hgb A1C) 4.9 [facility] CenterannANEMIA [id number] 10:31:00 Test Item Value Reference Range Interpretation Comments Vitamin B12 Lvl (test code = Vitamin [phone] B12 Lvl) [facility] CenterCARDIAC [id number] 10:31:00 Test Item Value Reference Range Interpretation Comments Troponin-I (test code 0.18 See_Comment [Auto mated message] The = Troponin-I) system which g enerated this result transmit maria c reference range : <=0.40. The reference r maría was not used to interpr et this result as karthikeyan l/abnormal. [facility]2019-12-30 10:31:00 Test Item Value Reference Range Interpretation Comments Phosphorus (test code = Phosphorus) 4.4 2.5-4.5 [facility]2019-12-30 10:31:00 Test Item Value Reference Range Interpretation Comments Magnesium Lvl (test code = Magnesium 2.2 1.8-2.4 Lvl) [facility]2019-12-30 10:31:00 Test Item Value Reference Range Interpretation Comments Glucose Lvl (test code = Glucose Lvl) 146 70-99 [facility]2019-12-30 10:31:00 Test Item Value Reference Range Interpretation Comments BUN (test code = BUN) 14 7-22 [facility]2019-12-30 10:31:00 Test Item Value Reference Range Interpretation Comments Creatinine Lvl (test code = Creatinine 0.94 0.50-1.40 Lvl) [facility]2019-12-30 10:31:00 Test Item Value Reference Range Interpretation Comments Sodium Lvl (test code = Sodium Lvl) 140 135-145 [facility]2019-12-30 10:31:00 Test Item Value Reference Range Interpretation Comments Potassium Lvl (test code = Potassium 3.9 3.5-5.1 Lvl) [facility]2019-12-30 10:31:00 Test Item Value Reference Range Interpretation Comments Chloride Lvl (test code = Chloride Lvl) 103 95-109 [facility]2019-12-30 10:31:00 Test Item Value Reference Range Interpretation Comments CO2 (test code = CO2) 28 24-32 [facility]2019-12-30 10:31:00 Test Item Value Reference Range Interpretation Comments Calcium Lvl (test code = Calcium Lvl) 9.2 8.5-10.5 [facility]2019-12-30 10:31:00 Test Item Value Reference Range Interpretation Comments eGFR (test code = eGFR) 59 [facility]2019-12-30 10:31:00 Test Item Value Reference Range Interpretation Comments AGAP (test code = AGAP) 12.9 10.0-20.0 [facility]2019-12-30 10:31:00 Test Item Value Reference Range Interpretation Comments Procalcitonin Lvl (test 3.83 See_Comment [Au tomated message] code = Procalcitonin Lvl) Th e system which generated this result transmitted ref erence range: <=0.10. The reference range was not used to interpr et this result as normal/abnormal . [facility]2019-12-30 10:31:00 Test Item Value Reference Range Interpretation Comments Lactic Acid Lvl (test code = Lactic 1.5 0.5-2.2 Acid Lvl) [facility] HospitalQevwegmHUZMWSOBHA8573-41-63 10:31:00 Test Item Value Reference Range Interpretation Comments Segs (test code = Segs) 91.2 45.0-75.0 [facility] HospitalHlfgmkxILAWEDQBLR4896-81-22 10:31:00 Test Item Value Reference Range Interpretation Comments Lymphocytes (test code = Lymphocytes) 7.5 20.0-40.0 [facility] HospitalUjdpvddZHZUBULDYM1870-24-18 10:31:00 Test Item Value Reference Range Interpretation Comments Monocytes (test code = Monocytes) 1.2 2.0-12.0 [facility] HospitalQdpowpcXCBSKTVANO4376-63-32 10:31:00 Test Item Value Reference Range Interpretation Comments Basophils (test code = 0.1 See_Comment [Aut omated message] The Basophils) system which ge nerated this result tra nsmitted reference range : <=1.0. The reference r maría was not used to int erpret this result as normal/abnormal . [facility] HospitalCwqawebAEAMPUJUAZ3174-87-71 10:31:00 Test Item Value Reference Range Interpretation Comments Neutrophils # (test code = Neutrophils 9.4 1.5-8.1 #) [facility] HospitalDxbmrcxBZKRFRZGAW8942-10-51 10:31:00 Test Item Value Reference Range Interpretation Comments Lymphocytes # (test code = Lymphocytes 0.8 1.0-5.5 #) [facility] HospitalOifbbeiTORJQDWJZQ7626-67-24 10:31:00 Test Item Value Reference Range Interpretation Comments Monocytes # (test code 0.1 See_Comment [Aut omated message] The = Monocytes #) system which generated this result tra nsmitted reference range : <=0.8. The reference r maría was not used to int erpret this result as normal/abnormal . [facility] HospitalLzogsqrANGBLFLRQT3402-08-23 10:31:00 Test Item Value Reference Range Interpretation Comments WBC (test code = WBC) 10.3 3.7-10.4 [facility] HospitalLfdlzfeQUMVHRCWSK6071-85-01 10:31:00 Test Item Value Reference Range Interpretation Comments RBC (test code = RBC) 4.13 4.20-5.40 [facility] HospitalOoizadwEOMISBGTPE0595-48-33 10:31:00 Test Item Value Reference Range Interpretation Comments Hgb (test code = Hgb) 12.8 12.0-16.0 [facility] HospitalCoplowqZTMAKUBWLN6790-10-94 10:31:00 Test Item Value Reference Range Interpretation Comments Hct (test code = Hct) 38.6 36.0-48.0 [facility] HospitalKphhougHSTAXNLAMS9823-61-64 10:31:00 Test Item Value Reference Range Interpretation Comments MCV (test code = MCV) 93.7 80.0-98.0 [facility] HospitalEqbjpsrIWLCHLEOQW5169-70-56 10:31:00 Test Item Value Reference Range Interpretation Comments MCH (test code = MCH) 31.0 pg 27.0-31.0 [facility] HospitalRqossnhLJLWIJIPNX5151-67-71 10:31:00 Test Item Value Reference Range Interpretation Comments MCHC (test code = MCHC) 33.1 32.0-36.0 [facility] HospitalFnhvsqdYBHKKRNVWX7954-35-78 10:31:00 Test Item Value Reference Range Interpretation Comments RDW (test code = RDW) 15.4 11.5-14.5 [facility] HospitalBnndtqsCPMDYUPRRH1146-50-67 10:31:00 Test Item Value Reference Range Interpretation Comments Platelet (test code = Platelet) 388 133-450 [facility] HospitalXbswxtdFZULJJWFNT4905-90-09 10:31:00 Test Item Value Reference Range Interpretation Comments MPV (test code = MPV) 8.3 7.4-10.4 [facility]RssbiujKBVRYO3646-94-20 10:31:00 Test Item Value Reference Range Interpretation Comments CHD Risk (test code = CHD Risk) 2.87 1 3.90-5.80 [facility] CenterDbkjxgeZXQNVZ5980-18-04 10:31:00 Test Item Value Reference Range Interpretation Comments Trig (test code = Trig) 52 [facility] CenterOgbohzjTHSRPZ7814-43-27 10:31:00 Test Item Value Reference Range Interpretation Comments Chol (test code = Chol) 172 [facility] CenterRpaboxgFYMWJO0517-20-95 10:31:00 Test Item Value Reference Range Interpretation Comments HDL (test code = HDL) 60 [facility] CenterIxgieepJGTZAG9300-46-07 10:31:00 Test Item Value Reference Range Interpretation Comments LDL (Calculated) (test code = LDL 102 (Calculated)) [facility] CenterBebotzpNJJCGS3460-13-28 10:31:00 Test Item Value Reference Range Interpretation Comments VLDL (test code = VLDL) [address] [facility] CenterSPECIAL BQJTDBUIT6213-89-32 10:31:00 Test Item Value Reference Range Interpretation Comments Hgb A1C (test code = Hgb A1C) 4.9 [facility] CenterBACTERIAL - NQVJBJIE7874-90-96 05:41:00 Test Item Value Reference Range Interpretation Comments MRSA by PCR (test Negative (09/14/19 11:41 code = MRSA by PCR) PM) [facility] CenterannCARDIAC [id number] 05:41:00 Test Item Value Reference Range Interpretation Comments BNP (test code = BNP) 488 [facility] CenterImpulcityCARYieldPlanetAC [id number] 05:41:00 Test Item Value Reference Range Interpretation Comments Troponin-I (test code 0.26 See_Comment [Auto mated message] The = Troponin-I) system which g enerated this result transmit maria c reference range : <=0.40. The reference r maría was not used to interpr et this result as karthikeyan l/abnormal. [facility] [employer] [id number] 05:41:00 Test Item Value Reference Range Interpretation Comments Procalcitonin Lvl (test 2.77 See_Comment [Au tomated message] code = Procalcitonin Lvl) Th e system which generated this result transmitted ref erence range: <=0.10. The reference range was not used to interpr et this result as normal/abnormal . [facility] [employer] [id number] 05:41:00 Test Item Value Reference Range Interpretation Comments Glucose Lvl (test code = Glucose Lvl) 134 70-99 [facility] [employer] [id number] 05:41:00 Test Item Value Reference Range Interpretation Comments BUN (test code = BUN) 13 7-22 [facility]2019-12-30 05:41:00 Test Item Value Reference Range Interpretation Comments Creatinine Lvl (test code = Creatinine 1.01 0.50-1.40 Lvl) [facility]2019-12-30 05:41:00 Test Item Value Reference Range Interpretation Comments Sodium Lvl (test code = Sodium Lvl) 140 135-145 [facility]2019-12-30 05:41:00 Test Item Value Reference Range Interpretation Comments Potassium Lvl (test code = Potassium 4.0 3.5-5.1 Lvl) [facility]2019-12-30 05:41:00 Test Item Value Reference Range Interpretation Comments Chloride Lvl (test code = Chloride Lvl) 103 95-109 [facility]2019-12-30 05:41:00 Test Item Value Reference Range Interpretation Comments CO2 (test code = CO2) 30 24-32 [facility]2019-12-30 05:41:00 Test Item Value Reference Range Interpretation Comments Calcium Lvl (test code = Calcium Lvl) 8.8 8.5-10.5 [facility]2019-12-30 05:41:00 Test Item Value Reference Range Interpretation Comments Total Protein (test code = Total 7.3 6.4-8.4 Protein) [facility]2019-12-30 05:41:00 Test Item Value Reference Range Interpretation Comments Albumin Lvl (test code = Albumin Lvl) 3.2 3.5-5.0 [facility]2019-12-30 05:41:00 Test Item Value Reference Range Interpretation Comments ALT (test code = ALT) 19 See_Comment [Auto mated message] The system which ge nerated this result transmit maria c reference range : <=65. The reference range was not used to interpr et this result as karthikeyan l/abnormal. [facility]2019-12-30 05:41:00 Test Item Value Reference Range Interpretation Comments AST (test code = AST) 21 See_Comment [Auto mated message] The system which ge nerated this result transmit maria c reference range : <=37. The reference range was not used to interpr et this result as karthikeyan l/abnormal. [facility]2019-12-30 05:41:00 Test Item Value Reference Range Interpretation Comments Alk Phos (test code = Alk Phos) 136 39-136 [facility]2019-12-30 05:41:00 Test Item Value Reference Range Interpretation Comments Bili Total (test code = Bili Total) 0.4 0.2-1.3 [facility]2019-12-30 05:41:00 Test Item Value Reference Range Interpretation Comments eGFR (test code = eGFR) 55 [facility]2019-12-30 05:41:00 Test Item Value Reference Range Interpretation Comments AGAP (test code = AGAP) 11.0 10.0-20.0 [facility]2019-12-30 05:41:00 Test Item Value Reference Range Interpretation Comments B/C Ratio (test code = B/C Ratio) 13 1 6-25 [facility]2019-12-30 05:41:00 Test Item Value Reference Range Interpretation Comments Globulin (test code = Globulin) 4.1 2.7-4.2 [facility]2019-12-30 05:41:00 Test Item Value Reference Range Interpretation Comments A/G Ratio (test code = A/G Ratio) 0.8 1 0.7-1.6 [facility]2019-12-30 05:41:00 Test Item Value Reference Range Interpretation Comments Magnesium Lvl (test code = Magnesium 2.3 1.8-2.4 Lvl) [facility]2019-12-30 05:41:00 Test Item Value Reference Range Interpretation Comments Phosphorus (test code = Phosphorus) 4.4 2.5-4.5 [facility] Ho[id number] 05:41:00 Test Item Value Reference Range Interpretation Comments WBC (test code = WBC) 14.9 3.7-10.4 [facility] HospitalWsyqfyeTWKFTKSLYG4921-58-33 05:41:00 Test Item Value Reference Range Interpretation Comments RBC (test code = RBC) 4.11 4.20-5.40 [facility] HospitalEowypziTFZKPEFIBW6641-71-92 05:41:00 Test Item Value Reference Range Interpretation Comments Hgb (test code = Hgb) 12.6 12.0-16.0 [facility] HospitalXvhuedcAKEJTPKSYM3659-94-64 05:41:00 Test Item Value Reference Range Interpretation Comments Hct (test code = Hct) 38.1 36.0-48.0 [facility] HospitalAggdhjkCOYHNVKTNI3925-28-75 05:41:00 Test Item Value Reference Range Interpretation Comments MCV (test code = MCV) 92.8 80.0-98.0 [facility] HospitalGajaruiVPEWFGTWDS2405-06-13 05:41:00 Test Item Value Reference Range Interpretation Comments MCH (test code = MCH) 30.7 pg 27.0-31.0 [facility] HospitalJwifyiuPSCIHRSYQO8501-92-42 05:41:00 Test Item Value Reference Range Interpretation Comments MCHC (test code = MCHC) 33.1 32.0-36.0 [facility] HospitalBwuqvliLHJRKNJUWT6136-52-16 05:41:00 Test Item Value Reference Range Interpretation Comments RDW (test code = RDW) 15.2 11.5-14.5 [facility] HospitalMlpyujfHZJVLWGLVN0972-70-02 05:41:00 Test Item Value Reference Range Interpretation Comments Platelet (test code = Platelet) 372 133-450 [facility] HospitalUvmrtwyOCXUAEPGAK4201-91-04 05:41:00 Test Item Value Reference Range Interpretation Comments MPV (test code = MPV) 8.3 7.4-10.4 [facility] HospitalSiypuakDIHVLXFUFJ3521-33-77 05:41:00 Test Item Value Reference Range Interpretation Comments INR (test code = INR) 1.07 1 0.85-1.17 [facility] HospitalBaldsckQPQHGTCPSZ4880-29-35 05:41:00 Test Item Value Reference Range Interpretation Comments PT (test code = PT) 13.9 s 12.0-14.7 [facility] HospitalTxdehvlXJRCHITJRJ0849-72-83 05:41:00 Test Item Value Reference Range Interpretation Comments PTT (test code = PTT) 34.8 s 22.9-35.8 [facility] HospitalFtresynTFZUXZPAEL2112-40-23 05:41:00 Test Item Value Reference Range Interpretation Comments RBC Morph (test code = Normal (09/14/19 11:41 RBC Morph) PM) [facility] HospitalMrastkrEIUDYRLGDY7527-61-04 05:41:00 Test Item Value Reference Range Interpretation Comments Plt Morph (test code = Normal (09/14/19 11:41 Plt Morph) PM) [facility] HospitalHwoysbpOECSBNKHTP6073-29-81 05:41:00 Test Item Value Reference Range Interpretation Comments Segs (test code = Segs) 94.6 45.0-75.0 [facility] HospitalKwwrstlRXJYONXOIK0809-45-31 05:41:00 Test Item Value Reference Range Interpretation Comments Lymphocytes (test code = Lymphocytes) 3.9 20.0-40.0 [facility] HospitalNwdzlpyQVEPXCPFJR3204-20-45 05:41:00 Test Item Value Reference Range Interpretation Comments Monocytes (test code = Monocytes) 1.1 2.0-12.0 [facility] HospitalLwoujbbJIYHEMEZED5032-87-24 05:41:00 Test Item Value Reference Range Interpretation Comments Eosinophils (test code = 0.1 See_Comment [A utomated message] The Eosinophils) system which ge nerated this result tra nsmitted reference range : <=4.0. The reference r maría was not used to int erpret this result as normal/abnormal . [facility] HospitalDxjeiysEQCSVVVUOP2397-77-06 05:41:00 Test Item Value Reference Range Interpretation Comments Basophils (test code = 0.3 See_Comment [Aut omated message] The Basophils) system which ge nerated this result tra nsmitted reference range : <=1.0. The reference r maría was not used to int erpret this result as normal/abnormal . [facility] HospitalFjztmdlWUBVYLODCB5700-23-44 05:41:00 Test Item Value Reference Range Interpretation Comments Neutrophils # (test code = Neutrophils 14.1 1.5-8.1 #) [facility] HospitalNrtcajgSPNQYTYURD0709-40-72 05:41:00 Test Item Value Reference Range Interpretation Comments Lymphocytes # (test code = Lymphocytes 0.6 1.0-5.5 #) [facility] HospitalOwopqzjZDITEJDOSA9330-15-84 05:41:00 Test Item Value Reference Range Interpretation Comments Monocytes # (test code 0.2 See_Comment [Aut omated message] The = Monocytes #) system which generated this result tra nsmitted reference range : <=0.8. The reference r maría was not used to int erpret this result as normal/abnormal . [facility]2019-12-30 05:41:00 Test Item Value Reference Range Interpretation Comments Ca Ion WB (test code = Ca Ion WB) 1.08 1.05-1.25 [facility]2019-12-30 05:41:00 Test Item Value Reference Range Interpretation Comments Ca Norm WB (test code = Ca Norm WB) 1.04 1.05-1.25 [facility]BACT[facility] - [id number] 05:41:00 Test Item Value Reference Range Interpretation Comments MRSA by PCR (test Negative (09/14/19 11:41 code = MRSA by PCR) PM) [facility] CenterCARDIAC [id number] 05:41:00 Test Item Value Reference Range Interpretation Comments BNP (test code = BNP) 488 [facility] FTMSEFS9554-77-11 05:41:00 Test Item Value Reference Range Interpretation Comments Troponin-I (test code 0.26 See_Comment [Auto mated message] The = Troponin-I) system which g enerated this result transmit maria c reference range : <=0.40. The reference r maría was not used to interpr et this result as karthikeyan l/abnormal. [facility] [id number] 05:41:00 Test Item Value Reference Range Interpretation Comments Procalcitonin Lvl (test 2.77 See_Comment [Au tomated message] code = Procalcitonin Lvl) Th e system which generated this result transmitted ref erence range: <=0.10. The reference range was not used to interpr et this result as normal/abnormal . [facility] [id number] 05:41:00 Test Item Value Reference Range Interpretation Comments Glucose Lvl (test code = Glucose Lvl) 134 70-99 [facility] [id number] 05:41:00 Test Item Value Reference Range Interpretation Comments BUN (test code = BUN) 13 7-22 [facility] [id number] 05:41:00 Test Item Value Reference Range Interpretation Comments Creatinine Lvl (test code = Creatinine 1.01 0.50-1.40 Lvl) [facility] [id number] 05:41:00 Test Item Value Reference Range Interpretation Comments Sodium Lvl (test code = Sodium Lvl) 140 135-145 [facility] [id number] 05:41:00 Test Item Value Reference Range Interpretation Comments Potassium Lvl (test code = Potassium 4.0 3.5-5.1 Lvl) [facility] [id number] 05:41:00 Test Item Value Reference Range Interpretation Comments Chloride Lvl (test code = Chloride Lvl) 103 95-109 [facility]2019-12-30 05:41:00 Test Item Value Reference Range Interpretation Comments CO2 (test code = CO2) 30 24-32 [facility]2019-12-30 05:41:00 Test Item Value Reference Range Interpretation Comments Calcium Lvl (test code = Calcium Lvl) 8.8 8.5-10.5 [facility]2019-12-30 05:41:00 Test Item Value Reference Range Interpretation Comments Total Protein (test code = Total 7.3 6.4-8.4 Protein) [facility]2019-12-30 05:41:00 Test Item Value Reference Range Interpretation Comments Albumin Lvl (test code = Albumin Lvl) 3.2 3.5-5.0 [facility]2019-12-30 05:41:00 Test Item Value Reference Range Interpretation Comments ALT (test code = ALT) 19 See_Comment [Auto mated message] The system which ge nerated this result transmit maria c reference range : <=65. The reference range was not used to interpr et this result as karthikeyan l/abnormal. [facility]2019-12-30 05:41:00 Test Item Value Reference Range Interpretation Comments AST (test code = AST) 21 See_Comment [Auto mated message] The system which ge nerated this result transmit maria c reference range : <=37. The reference range was not used to interpr et this result as karthikeyan l/abnormal. [facility]2019-12-30 05:41:00 Test Item Value Reference Range Interpretation Comments Alk Phos (test code = Alk Phos) 136 39-136 [facility]2019-12-30 05:41:00 Test Item Value Reference Range Interpretation Comments Bili Total (test code = Bili Total) 0.4 0.2-1.3 [facility]2019-12-30 05:41:00 Test Item Value Reference Range Interpretation Comments eGFR (test code = eGFR) 55 [facility]2019-12-30 05:41:00 Test Item Value Reference Range Interpretation Comments AGAP (test code = AGAP) 11.0 10.0-20.0 [facility]2019-12-30 05:41:00 Test Item Value Reference Range Interpretation Comments B/C Ratio (test code = B/C Ratio) 13 1 6-25 [facility]2019-12-30 05:41:00 Test Item Value Reference Range Interpretation Comments Globulin (test code = Globulin) 4.1 2.7-4.2 [facility]2019-12-30 05:41:00 Test Item Value Reference Range Interpretation Comments A/G Ratio (test code = A/G Ratio) 0.8 1 0.7-1.6 [facility]2019-12-30 05:41:00 Test Item Value Reference Range Interpretation Comments Magnesium Lvl (test code = Magnesium 2.3 1.8-2.4 Lvl) [facility]2019-12-30 05:41:00 Test Item Value Reference Range Interpretation Comments Phosphorus (test code = Phosphorus) 4.4 2.5-4.5 [facility] HospitalIxofstzSAFVRUFRIT2216-40-90 05:41:00 Test Item Value Reference Range Interpretation Comments WBC (test code = WBC) 14.9 3.7-10.4 [facility] HospitalGevomwlZJBNEQTIQC2127-11-39 05:41:00 Test Item Value Reference Range Interpretation Comments RBC (test code = RBC) 4.11 4.20-5.40 [facility] HospitalVyikaxcHDVJULZZCP8999-93-45 05:41:00 Test Item Value Reference Range Interpretation Comments Hgb (test code = Hgb) 12.6 12.0-16.0 [facility] HospitalElagibfIYMGQILNZP9878-89-79 05:41:00 Test Item Value Reference Range Interpretation Comments Hct (test code = Hct) 38.1 36.0-48.0 [facility] HospitalSdbdicpWFLPSYONOT3851-57-64 05:41:00 Test Item Value Reference Range Interpretation Comments MCV (test code = MCV) 92.8 80.0-98.0 [facility] HospitalAfxxgntNZNHRGJNSL4104-44-32 05:41:00 Test Item Value Reference Range Interpretation Comments MCH (test code = MCH) 30.7 pg 27.0-31.0 [facility] HospitalLvqntfiSLCZGTUQGA4304-60-40 05:41:00 Test Item Value Reference Range Interpretation Comments MCHC (test code = MCHC) 33.1 32.0-36.0 [facility] HospitalOrxzdwjALOOJEWNDH9161-34-93 05:41:00 Test Item Value Reference Range Interpretation Comments RDW (test code = RDW) 15.2 11.5-14.5 [facility] HospitalYoexenuGAYSOVTIMX0602-33-38 05:41:00 Test Item Value Reference Range Interpretation Comments Platelet (test code = Platelet) 372 133-450 [facility] HospitalKmobevuXGMNVXBLNS9617-19-19 05:41:00 Test Item Value Reference Range Interpretation Comments MPV (test code = MPV) 8.3 7.4-10.4 [facility] HospitalOiunepjPRKKOAMMNU9517-92-81 05:41:00 Test Item Value Reference Range Interpretation Comments INR (test code = INR) 1.07 1 0.85-1.17 [facility] HospitalOrbasjuYZXENBXWAH0401-66-32 05:41:00 Test Item Value Reference Range Interpretation Comments PT (test code = PT) 13.9 s 12.0-14.7 [facility] HospitalQkrtdnoGHXSBQXFKU4112-74-80 05:41:00 Test Item Value Reference Range Interpretation Comments PTT (test code = PTT) 34.8 s 22.9-35.8 [facility] HospitalUtytrczHCQZSSRVLP6559-92-90 05:41:00 Test Item Value Reference Range Interpretation Comments RBC Morph (test code = Normal (09/14/19 11:41 RBC Morph) PM) [facility] HospitalIfbdusnBHBPVJAEDL2335-62-32 05:41:00 Test Item Value Reference Range Interpretation Comments Plt Morph (test code = Normal (09/14/19 11:41 Plt Morph) PM) [facility] HospitalNnsybxzKIIVRBADGW2912-33-68 05:41:00 Test Item Value Reference Range Interpretation Comments Segs (test code = Segs) 94.6 45.0-75.0 [facility] HospitalKjjfbwcXHDOWSDUVL2311-90-96 05:41:00 Test Item Value Reference Range Interpretation Comments Lymphocytes (test code = Lymphocytes) 3.9 20.0-40.0 [facility] HospitalEezscgeVHDRPDMVHQ7750-09-27 05:41:00 Test Item Value Reference Range Interpretation Comments Monocytes (test code = Monocytes) 1.1 2.0-12.0 [facility] HospitalEzyvbljOUGXHJLSAD1008-75-52 05:41:00 Test Item Value Reference Range Interpretation Comments Eosinophils (test code = 0.1 See_Comment [A utomated message] The Eosinophils) system which ge nerated this result tra nsmitted reference range : <=4.0. The reference r maría was not used to int erpret this result as normal/abnormal . [facility] HospitalIzydtrjTJSSCATGYZ4324-05-12 05:41:00 Test Item Value Reference Range Interpretation Comments Basophils (test code = 0.3 See_Comment [Aut omated message] The Basophils) system which ge nerated this result tra nsmitted reference range : <=1.0. The reference r maría was not used to int erpret this result as normal/abnormal . [facility] HospitalTpnzgvlIGHRPQLAJF8916-57-89 05:41:00 Test Item Value Reference Range Interpretation Comments Neutrophils # (test code = Neutrophils 14.1 1.5-8.1 #) [facility] HospitalAxmioheJVDAHTIJHM4849-01-46 05:41:00 Test Item Value Reference Range Interpretation Comments Lymphocytes # (test code = Lymphocytes 0.6 1.0-5.5 #) [facility] HospitalQneutaqQYUWHMOCVR7341-55-84 05:41:00 Test Item Value Reference Range Interpretation Comments Monocytes # (test code 0.2 See_Comment [Aut omated message] The = Monocytes #) system which generated this result tra nsmitted reference range : <=0.8. The reference r maría was not used to int erpret this result as normal/abnormal . [facility]2019-12-30 05:41:00 Test Item Value Reference Range Interpretation Comments Ca Ion WB (test code = Ca Ion WB) 1.08 1.05-1.25 [facility]2019-12-30 05:41:00 Test Item Value Reference Range Interpretation Comments Ca Norm WB (test code = Ca Norm WB) 1.04 1.05-1.25 [facility]2019-09-15 10:10:00 Test Item Value Reference Range Interpretation Comments Glucose Lvl (test code = Glucose Lvl) 78 70-99 [facility]2019-09-15 10:10:00 Test Item Value Reference Range Interpretation Comments BUN (test code = BUN) 16 7-22 [facility]2019-09-15 10:10:00 Test Item Value Reference Range Interpretation Comments Creatinine Lvl (test code = Creatinine 0.80 0.50-1.40 Lvl) [facility]2019-09-15 10:10:00 Test Item Value Reference Range Interpretation Comments Sodium Lvl (test code = Sodium Lvl) 138 135-145 [facility]2019-09-15 10:10:00 Test Item Value Reference Range Interpretation Comments Potassium Lvl (test code = Potassium 4.2 3.5-5.1 Lvl) [facility]2019-09-15 10:10:00 Test Item Value Reference Range Interpretation Comments Chloride Lvl (test code = Chloride Lvl) 102 95-109 [facility]2019-09-15 10:10:00 Test Item Value Reference Range Interpretation Comments CO2 (test code = CO2) 30 24-32 [facility]2019-09-15 10:10:00 Test Item Value Reference Range Interpretation Comments Calcium Lvl (test code = Calcium Lvl) 9.0 8.5-10.5 [facility]2019-09-15 10:10:00 Test Item Value Reference Range Interpretation Comments AGAP (test code = AGAP) 10.2 10.0-20.0 [facility]2019-09-15 10:10:00 Test Item Value Reference Range Interpretation Comments eGFR (test code = eGFR) 72 [facility] HospitalKtlzokaHJFUPKYUEQ1906-65-63 10:10:00 Test Item Value Reference Range Interpretation Comments WBC (test code = WBC) 9.7 3.7-10.4 [facility] HospitalVjdpmpfLGSVASYIIZ4822-10-05 10:10:00 Test Item Value Reference Range Interpretation Comments RBC (test code = RBC) 3.56 4.20-5.40 [facility] HospitalVqdrrqfZJAMEKURYS8133-40-21 10:10:00 Test Item Value Reference Range Interpretation Comments Hgb (test code = Hgb) 11.6 12.0-16.0 [facility] HospitalEhfksrsZIQRWKJXEZ6257-44-54 10:10:00 Test Item Value Reference Range Interpretation Comments Hct (test code = Hct) 34.9 36.0-48.0 [facility] HospitalKcrjawpJUUWHOFJXK0268-93-54 10:10:00 Test Item Value Reference Range Interpretation Comments MCV (test code = MCV) 98.1 80.0-98.0 [facility] HospitalIvgduawFYKQTJPZSS2058-07-22 10:10:00 Test Item Value Reference Range Interpretation Comments MCH (test code = MCH) 32.7 pg 27.0-31.0 [facility] HospitalEwhcicxDRAZSKSGAZ1336-16-37 10:10:00 Test Item Value Reference Range Interpretation Comments MCHC (test code = MCHC) 33.4 32.0-36.0 [facility] HospitalTxnybydKJUIDJNCQF5119-85-60 10:10:00 Test Item Value Reference Range Interpretation Comments RDW (test code = RDW) 15.5 11.5-14.5 [facility] HospitalFulniemKLIRLUCWOH5004-77-30 10:10:00 Test Item Value Reference Range Interpretation Comments Platelet (test code = Platelet) 288 133-450 [facility] HospitalUjhiiaiNYXVLCFAZL4951-37-81 10:10:00 Test Item Value Reference Range Interpretation Comments MPV (test code = MPV) 9.0 7.4-10.4 [facility]2019-09-15 10:10:00 Test Item Value Reference Range Interpretation Comments Glucose Lvl (test code = Glucose Lvl) 78 70-99 [facility]2019-09-15 10:10:00 Test Item Value Reference Range Interpretation Comments BUN (test code = BUN) 16 7-22 [facility]2019-09-15 10:10:00 Test Item Value Reference Range Interpretation Comments Creatinine Lvl (test code = Creatinine 0.80 0.50-1.40 Lvl) [facility]2019-09-15 10:10:00 Test Item Value Reference Range Interpretation Comments Sodium Lvl (test code = Sodium Lvl) 138 135-145 [facility]2019-09-15 10:10:00 Test Item Value Reference Range Interpretation Comments Potassium Lvl (test code = Potassium 4.2 3.5-5.1 Lvl) [facility]2019-09-15 10:10:00 Test Item Value Reference Range Interpretation Comments Chloride Lvl (test code = Chloride Lvl) 102 95-109 [facility]2019-09-15 10:10:00 Test Item Value Reference Range Interpretation Comments CO2 (test code = CO2) 30 24-32 [facility]2019-09-15 10:10:00 Test Item Value Reference Range Interpretation Comments Calcium Lvl (test code = Calcium Lvl) 9.0 8.5-10.5 [facility]2019-09-15 10:10:00 Test Item Value Reference Range Interpretation Comments AGAP (test code = AGAP) 10.2 10.0-20.0 [facility]2019-09-15 10:10:00 Test Item Value Reference Range Interpretation Comments eGFR (test code = eGFR) 72 [facility] HospitalQfktunbLREBGVIRSC2127-45-29 10:10:00 Test Item Value Reference Range Interpretation Comments WBC (test code = WBC) 9.7 3.7-10.4 [facility] HospitalEyixrhpAJRHLTUWYY3600-23-56 10:10:00 Test Item Value Reference Range Interpretation Comments RBC (test code = RBC) 3.56 4.20-5.40 [facility] HospitalRulejlbUGIQZIIIEA2789-34-94 10:10:00 Test Item Value Reference Range Interpretation Comments Hgb (test code = Hgb) 11.6 12.0-16.0 [facility] HospitalKmjhudyAAGYDDWZWW6586-39-35 10:10:00 Test Item Value Reference Range Interpretation Comments Hct (test code = Hct) 34.9 36.0-48.0 [facility] HospitalDmuzemeKHIXPYBKHC8741-69-90 10:10:00 Test Item Value Reference Range Interpretation Comments MCV (test code = MCV) 98.1 80.0-98.0 [facility] HospitalTyluvdqTODGBHEQUO2838-84-01 10:10:00 Test Item Value Reference Range Interpretation Comments MCH (test code = MCH) 32.7 pg 27.0-31.0 [facility] HospitalPnutrsgSFRYGXDGCP8874-90-49 10:10:00 Test Item Value Reference Range Interpretation Comments MCHC (test code = MCHC) 33.4 32.0-36.0 [facility] HospitalCzcxgteDAEMZZOJEW8779-42-91 10:10:00 Test Item Value Reference Range Interpretation Comments RDW (test code = RDW) 15.5 11.5-14.5 [facility] HospitalBtkpsmzJDVSPNHDTK1443-38-86 10:10:00 Test Item Value Reference Range Interpretation Comments Platelet (test code = Platelet) 288 133-450 [facility] HospitalOppdcrjASHUIUBADO1712-96-41 10:10:00 Test Item Value Reference Range Interpretation Comments MPV (test code = MPV) 9.0 7.4-10.4 [facility]2019-09-14 08:06:00 Test Item Value Reference Range Interpretation Comments Magnesium Lvl (test code = Magnesium 2.2 1.8-2.4 Lvl) [facility]2019-09-14 08:06:00 Test Item Value Reference Range Interpretation Comments Phosphorus (test code = Phosphorus) 3.7 2.5-4.5 [facility]KmlfmiuXQMTAUILTDUG0619-88-96 08:06:00 Test Item Value Reference Range Interpretation Comments AGAP (test code = AGAP) 11.3 10.0-20.0 [facility] HospitalFcxrbtoEHKHZXRUHSYX4089-93-38 08:06:00 Test Item Value Reference Range Interpretation Comments Glucose Lvl (test code = Glucose Lvl) 88 70-99 [facility] HospitalDzaceyvGVGBINWDYCSH3475-28-86 08:06:00 Test Item Value Reference Range Interpretation Comments BUN (test code = BUN) 21 7-22 [facility] HospitalXzhleukNMTNMJVTFUFU7446-94-86 08:06:00 Test Item Value Reference Range Interpretation Comments Creatinine Lvl (test code = Creatinine 0.74 0.50-1.40 Lvl) [facility] HospitalPkwzajfQICWNZXJLKCL2300-67-60 08:06:00 Test Item Value Reference Range Interpretation Comments Sodium Lvl (test code = Sodium Lvl) 137 135-145 [facility] HospitalAfvxyqtHOEABTBYTZLX5058-57-48 08:06:00 Test Item Value Reference Range Interpretation Comments Potassium Lvl (test code = Potassium 4.3 3.5-5.1 Lvl) [facility] HospitalCisubtzSCANZWVOMXWR6585-92-51 08:06:00 Test Item Value Reference Range Interpretation Comments Chloride Lvl (test code = Chloride Lvl) 102 95-109 [facility] HospitalNdvrsngPJGDXRIJICWF1053-62-46 08:06:00 Test Item Value Reference Range Interpretation Comments CO2 (test code = CO2) 28 24-32 [facility] HospitalVfpynigUYPYMBTQDKOL4620-30-76 08:06:00 Test Item Value Reference Range Interpretation Comments Calcium Lvl (test code = Calcium Lvl) 8.5 8.5-10.5 [facility] HospitalOyljujiRHDFBDUZQDUG6153-53-74 08:06:00 Test Item Value Reference Range Interpretation Comments eGFR (test code = eGFR) 79 [facility] HospitalObwckuyVXVITHKRTF7240-84-24 08:06:00 Test Item Value Reference Range Interpretation Comments WBC (test code = WBC) 9.9 3.7-10.4 [facility] HospitalKjumhkfRULHIYZEVA1582-36-96 08:06:00 Test Item Value Reference Range Interpretation Comments RBC (test code = RBC) 3.57 4.20-5.40 [facility] HospitalFfmyitxGJDPFGFJXB7911-64-78 08:06:00 Test Item Value Reference Range Interpretation Comments Hgb (test code = Hgb) 11.7 12.0-16.0 [facility] HospitalIgwstzaUTZEUBQSRB4623-58-10 08:06:00 Test Item Value Reference Range Interpretation Comments Hct (test code = Hct) 35.0 36.0-48.0 [facility] HospitalZleijfyRRBYACKPFA3478-65-32 08:06:00 Test Item Value Reference Range Interpretation Comments MCV (test code = MCV) 98.0 80.0-98.0 [facility] HospitalOrlcnbhKNTUVZZMGI2163-96-01 08:06:00 Test Item Value Reference Range Interpretation Comments MCH (test code = MCH) 32.9 pg 27.0-31.0 [facility] HospitalZxwnmqlBVAJMSTFLA1486-32-59 08:06:00 Test Item Value Reference Range Interpretation Comments MCHC (test code = MCHC) 33.5 32.0-36.0 [facility] HospitalXdsttxqREJCGZZSWK4282-79-33 08:06:00 Test Item Value Reference Range Interpretation Comments RDW (test code = RDW) 15.2 11.5-14.5 [facility] HospitalJcydnkzUKNVQBQUVU0936-04-49 08:06:00 Test Item Value Reference Range Interpretation Comments Platelet (test code = Platelet) 244 133-450 [facility] HospitalPeundxgDOGCNBGDLC7827-51-66 08:06:00 Test Item Value Reference Range Interpretation Comments MPV (test code = MPV) 9.1 7.4-10.4 [facility]2019-09-14 08:06:00 Test Item Value Reference Range Interpretation Comments Magnesium Lvl (test code = Magnesium 2.2 1.8-2.4 Lvl) [facility]2019-09-14 08:06:00 Test Item Value Reference Range Interpretation Comments Phosphorus (test code = Phosphorus) 3.7 2.5-4.5 [facility] HospitalPfmktzcLCHOTBIIYYEP1684-48-68 08:06:00 Test Item Value Reference Range Interpretation Comments AGAP (test code = AGAP) 11.3 10.0-20.0 [facility] HospitalIkrygjuUFZNXUWMHKCD2230-44-85 08:06:00 Test Item Value Reference Range Interpretation Comments Glucose Lvl (test code = Glucose Lvl) 88 70-99 [facility] HospitalYuquvlzXHYEUQRUYNXI8439-17-97 08:06:00 Test Item Value Reference Range Interpretation Comments BUN (test code = BUN) 21 7-22 [facility] HospitalZklnllzFWNKREJRVYRQ8106-86-24 08:06:00 Test Item Value Reference Range Interpretation Comments Creatinine Lvl (test code = Creatinine 0.74 0.50-1.40 Lvl) [facility] HospitalObugetqTFNBPOMSZMUA9143-16-98 08:06:00 Test Item Value Reference Range Interpretation Comments Sodium Lvl (test code = Sodium Lvl) 137 135-145 [facility] HospitalBkqfghxGUUNWNZDMQZQ7304-44-00 08:06:00 Test Item Value Reference Range Interpretation Comments Potassium Lvl (test code = Potassium 4.3 3.5-5.1 Lvl) [facility] HospitalRkrcclnMATLSLDJPFVW0497-03-58 08:06:00 Test Item Value Reference Range Interpretation Comments Chloride Lvl (test code = Chloride Lvl) 102 95-109 [facility] HospitalHlssivpYQZBJYDTQYRD1276-50-26 08:06:00 Test Item Value Reference Range Interpretation Comments CO2 (test code = CO2) 28 24-32 [facility]ylsncKWNYXCQSSSCO3967-95-87 08:06:00 Test Item Value Reference Range Interpretation Comments Calcium Lvl (test code = Calcium Lvl) 8.5 8.5-10.5 [facility]IhwbryoHVRPPZBFHNCH2237-45-33 08:06:00 Test Item Value Reference Range Interpretation Comments eGFR (test code = eGFR) 79 [facility]WrzvaooNGDBNSWUGD5623-31-23 08:06:00 Test Item Value Reference Range Interpretation Comments WBC (test code = WBC) 9.9 3.7-10.4 [facility] HospitalUyqgsndMNVDHBIMLI4684-06-66 08:06:00 Test Item Value Reference Range Interpretation Comments RBC (test code = RBC) 3.57 4.20-5.40 [facility] HospitalRgelkkwNKAJZGVYDV5629-57-78 08:06:00 Test Item Value Reference Range Interpretation Comments Hgb (test code = Hgb) 11.7 12.0-16.0 [facility] HospitalYsodrueYIQXVNMAQH4558-89-64 08:06:00 Test Item Value Reference Range Interpretation Comments Hct (test code = Hct) 35.0 36.0-48.0 [facility] HospitalUqqymoyHGYRYVNAXR7597-67-88 08:06:00 Test Item Value Reference Range Interpretation Comments MCV (test code = MCV) 98.0 80.0-98.0 [facility] HospitalNjiljudDPHSCDMWGP4740-62-69 08:06:00 Test Item Value Reference Range Interpretation Comments MCH (test code = MCH) 32.9 pg 27.0-31.0 [facility] HospitalNdhjqhxSJXJMAWYNW2501-25-70 08:06:00 Test Item Value Reference Range Interpretation Comments MCHC (test code = MCHC) 33.5 32.0-36.0 [facility] HospitalJmmlzjlDJPKKIRJRR0391-26-45 08:06:00 Test Item Value Reference Range Interpretation Comments RDW (test code = RDW) 15.2 11.5-14.5 [facility] HospitalUqibjgfPKYYMOANKR2988-60-16 08:06:00 Test Item Value Reference Range Interpretation Comments Platelet (test code = Platelet) 244 133-450 [facility] HospitalEijgmruTWNCXHHPXU5403-29-48 08:06:00 Test Item Value Reference Range Interpretation Comments MPV (test code = MPV) 9.1 7.4-10.4 [facility]2019-09-13 07:47:00 Test Item Value Reference Range Interpretation Comments Magnesium Lvl (test code = Magnesium 2.3 1.8-2.4 Lvl) [facility]2019-09-13 07:47:00 Test Item Value Reference Range Interpretation Comments Phosphorus (test code = Phosphorus) 3.1 2.5-4.5 [facility]2019-09-13 07:47:00 Test Item Value Reference Range Interpretation Comments Procalcitonin Lvl (test 0.93 See_Comment [Au tomated message] code = Procalcitonin Lvl) e system which generated this result transmitted ref erence range: <=0.10. The reference range was not used to interpr et this result as normal/abnormal . [facility]2019-09-13 07:47:00 Test Item Value Reference Range Interpretation Comments Glucose Lvl (test code = Glucose Lvl) 88 70-99 [facility]2019-09-13 07:47:00 Test Item Value Reference Range Interpretation Comments BUN (test code = BUN) 21 7-22 [facility]2019-09-13 07:47:00 Test Item Value Reference Range Interpretation Comments Creatinine Lvl (test code = Creatinine 0.64 0.50-1.40 Lvl) [facility]2019-09-13 07:47:00 Test Item Value Reference Range Interpretation Comments Sodium Lvl (test code = Sodium Lvl) 141 135-145 [facility]2019-09-13 07:47:00 Test Item Value Reference Range Interpretation Comments Potassium Lvl (test code = Potassium 4.6 3.5-5.1 Lvl) [place]659-09-13 07:47:00 Test Item Value Reference Range Interpretation Comments Chloride Lvl (test code = Chloride Lvl) 104 95-109 [facility]2019-09-13 07:47:00 Test Item Value Reference Range Interpretation Comments CO2 (test code = CO2) 27 24-32 [place] 458659-09-13 07:47:00 Test Item Value Reference Range Interpretation Comments Calcium Lvl (test code = Calcium Lvl) 8.7 8.5-10.5 [facility]2019-09-13 07:47:00 Test Item Value Reference Range Interpretation Comments eGFR (test code = eGFR) 87 [facility]2019-09-13 07:47:00 Test Item Value Reference Range Interpretation Comments AGAP (test code = AGAP) 14.6 10.0-20.0 [facility] HospitalDcjdgjiNMHLVSOWXP7918-61-62 07:47:00 Test Item Value Reference Range Interpretation Comments WBC (test code = WBC) 10.6 3.7-10.4 [facility] HospitalDdyigifPOPUBBODLY0349-11-77 07:47:00 Test Item Value Reference Range Interpretation Comments RBC (test code = RBC) 3.73 4.20-5.40 [facility] HospitalPkefdvzVHRVFRALPV4373-80-28 07:47:00 Test Item Value Reference Range Interpretation Comments Hgb (test code = Hgb) 12.4 12.0-16.0 [place] 744099-09-13 07:47:00 Test Item Value Reference Range Interpretation Comments Hct (test code = Hct) 36.3 36.0-48.0 [facility] HospitalEwbvrjyJFOXKWTQHJ7997-57-31 07:47:00 Test Item Value Reference Range Interpretation Comments MCV (test code = MCV) 97.3 80.0-98.0 [place] 744099-09-13 07:47:00 Test Item Value Reference Range Interpretation Comments MCH (test code = MCH) 33.2 pg 27.0-31.0 [place] 744099-09-13 07:47:00 Test Item Value Reference Range Interpretation Comments MCHC (test code = MCHC) 34.2 32.0-36.0 [facility] HospitalYeuvdtfHXLWDTFHDM9122-75-49 07:47:00 Test Item Value Reference Range Interpretation Comments RDW (test code = RDW) 15.6 11.5-14.5 [place] 744099-09-13 07:47:00 Test Item Value Reference Range Interpretation Comments Platelet (test code = Platelet) 240 133-450 [facility] HospitalHspiscyPNLXPWHDHV1051-05-72 07:47:00 Test Item Value Reference Range Interpretation Comments MPV (test code = MPV) 9.2 7.4-10.4 [facility]2019-09-13 07:47:00 Test Item Value Reference Range Interpretation Comments Magnesium Lvl (test code = Magnesium 2.3 1.8-2.4 Lvl) [facility]2019-09-13 07:47:00 Test Item Value Reference Range Interpretation Comments Phosphorus (test code = Phosphorus) 3.1 2.5-4.5 [facility]2019-09-13 07:47:00 Test Item Value Reference Range Interpretation Comments Procalcitonin Lvl (test 0.93 See_Comment [Au tomated message] code = Procalcitonin Lvl) e system which generated this result transmitted ref erence range: <=0.10. The reference range was not used to interpr et this result as normal/abnormal . [facility]2019-09-13 07:47:00 Test Item Value Reference Range Interpretation Comments Glucose Lvl (test code = Glucose Lvl) 88 70-99 [facility]2019-09-13 07:47:00 Test Item Value Reference Range Interpretation Comments BUN (test code = BUN) 21 7-22 [facility]2019-09-13 07:47:00 Test Item Value Reference Range Interpretation Comments Creatinine Lvl (test code = Creatinine 0.64 0.50-1.40 Lvl) [facility]2019-09-13 07:47:00 Test Item Value Reference Range Interpretation Comments Sodium Lvl (test code = Sodium Lvl) 141 135-145 [facility]2019-09-13 07:47:00 Test Item Value Reference Range Interpretation Comments Potassium Lvl (test code = Potassium 4.6 3.5-5.1 Lvl) [facility]2019-09-13 07:47:00 Test Item Value Reference Range Interpretation Comments Chloride Lvl (test code = Chloride Lvl) 104 95-109 [place] 458659-09-13 07:47:00 Test Item Value Reference Range Interpretation Comments CO2 (test code = CO2) 27 24-32 [facility]2019-09-13 07:47:00 Test Item Value Reference Range Interpretation Comments Calcium Lvl (test code = Calcium Lvl) 8.7 8.5-10.5 [facility]2019-09-13 07:47:00 Test Item Value Reference Range Interpretation Comments eGFR (test code = eGFR) 87 [facility]2019-09-13 07:47:00 Test Item Value Reference Range Interpretation Comments AGAP (test code = AGAP) 14.6 10.0-20.0 [facility] HospitalGktqsprVZKQUQTASW1769-67-72 07:47:00 Test Item Value Reference Range Interpretation Comments WBC (test code = WBC) 10.6 3.7-10.4 [facility] HospitalVslwfzbEDXRLANHQR2456-19-55 07:47:00 Test Item Value Reference Range Interpretation Comments RBC (test code = RBC) 3.73 4.20-5.40 [facility] HospitalTmqevejGGJOPHJYJH9816-94-91 07:47:00 Test Item Value Reference Range Interpretation Comments Hgb (test code = Hgb) 12.4 12.0-16.0 [facility] HospitalCkwtbkaWBXEJVLJJF2870-79-26 07:47:00 Test Item Value Reference Range Interpretation Comments Hct (test code = Hct) 36.3 36.0-48.0 [place] 744099-09-13 07:47:00 Test Item Value Reference Range Interpretation Comments MCV (test code = MCV) 97.3 80.0-98.0 [facility] HospitalKkmfxafQALMHFYBKR0549-33-29 07:47:00 Test Item Value Reference Range Interpretation Comments MCH (test code = MCH) 33.2 pg 27.0-31.0 [facility] HospitalXqdzpkmTJHOCAGYTM0032-91-64 07:47:00 Test Item Value Reference Range Interpretation Comments MCHC (test code = MCHC) 34.2 32.0-36.0 [place] 744099-09-13 07:47:00 Test Item Value Reference Range Interpretation Comments RDW (test code = RDW) 15.6 11.5-14.5 [facility] HospitalTsjwjuqYRTZOKBLRT1950-00-88 07:47:00 Test Item Value Reference Range Interpretation Comments Platelet (test code = Platelet) 240 133-450 [facility] HospitalJmwknnfUZPTIDZADY6568-54-67 07:47:00 Test Item Value Reference Range Interpretation Comments MPV (test code = MPV) 9.2 7.4-10.4 [facility] [id number] 07:17:00 Test Item Value Reference Range Interpretation Comments Phosphorus (test code = Phosphorus) 2.9 2.5-4.5 [facility] [id number] 07:17:00 Test Item Value Reference Range Interpretation Comments Magnesium Lvl (test code = Magnesium 2.3 1.8-2.4 Lvl) [facility] HospitalMsdugshHLMDURCBRE8340-66-91 07:17:00 Test Item Value Reference Range Interpretation Comments Segs (test code = Segs) 68.6 45.0-75.0 [facility] HospitalFaxquptURCLOOHBRH6546-88-18 07:17:00 Test Item Value Reference Range Interpretation Comments Lymphocytes (test code = Lymphocytes) 17.0 20.0-40.0 [facility] HospitalJlvaaqbKHJOQUZHTM8387-73-83 07:17:00 Test Item Value Reference Range Interpretation Comments Monocytes (test code = Monocytes) 12.1 2.0-12.0 [facility] HospitalMtzrkigYQLQXYMOVG0333-66-23 07:17:00 Test Item Value Reference Range Interpretation Comments Eosinophils (test code = 1.5 See_Comment [A utomated message] The Eosinophils) system which ge nerated this result tra nsmitted reference range : <=4.0. The reference r maría was not used to int erpret this result as normal/abnormal . [facility] HospitalKjdzihlEBINWMTCUP8248-06-76 07:17:00 Test Item Value Reference Range Interpretation Comments Basophils (test code = 0.8 See_Comment [Aut omated message] The Basophils) system which ge nerated this result tra nsmitted reference range : <=1.0. The reference r maría was not used to int erpret this result as normal/abnormal . [facility] HospitalBrxpiruVQMCXNGFFK9384-71-63 07:17:00 Test Item Value Reference Range Interpretation Comments Neutrophils # (test code = Neutrophils 7.8 1.5-8.1 #) [facility] HospitalYjozqneEKNVACTVVT3537-11-98 07:17:00 Test Item Value Reference Range Interpretation Comments Lymphocytes # (test code = Lymphocytes 1.9 1.0-5.5 #) [facility] HospitalRghxwczHZLHUHDDZT1976-23-86 07:17:00 Test Item Value Reference Range Interpretation Comments Monocytes # (test code 1.4 See_Comment [Aut omated message] The = Monocytes #) system which generated this result tra nsmitted reference range : <=0.8. The reference r maría was not used to int erpret this result as normal/abnormal . [facility] HospitalUjyzsuwUHFKVOZOWF1870-63-40 07:17:00 Test Item Value Reference Range Interpretation Comments Eosinophils # (test code 0.2 See_Comment [A utomated message] The = Eosinophils #) system whic h generated this result tra nsmitted reference range : <=0.5. The reference r maría was not used to int erpret this result as normal/abnormal . [facility] HospitalZdpdlodCGKVHREUQL3350-08-39 07:17:00 Test Item Value Reference Range Interpretation Comments Basophils # (test code 0.1 See_Comment [Aut omated message] The = Basophils #) system which generated this result tra nsmitted reference range : <=0.2. The reference r maría was not used to int erpret this result as normal/abnormal . [facility]2019-09-12 07:17:00 Test Item Value Reference Range Interpretation Comments Ca Ion WB (test code = Ca Ion WB) 1.20 1.05-1.25 [facility]2019-09-12 07:17:00 Test Item Value Reference Range Interpretation Comments Ca Norm WB (test code = Ca Norm WB) 1.11 1.05-1.25 [facility]2019-09-12 07:17:00 Test Item Value Reference Range Interpretation Comments Phosphorus (test code = Phosphorus) 2.9 2.5-4.5 [facility]2019-09-12 07:17:00 Test Item Value Reference Range Interpretation Comments Magnesium Lvl (test code = Magnesium 2.3 1.8-2.4 Lvl) [facility] HospitalQpcicwqZECFQERLNB1327-73-52 07:17:00 Test Item Value Reference Range Interpretation Comments Segs (test code = Segs) 68.6 45.0-75.0 [facility] HospitalLddqiqeBAHENYDXKK8951-15-09 07:17:00 Test Item Value Reference Range Interpretation Comments Lymphocytes (test code = Lymphocytes) 17.0 20.0-40.0 [facility] HospitalPmijjipGELGAJITLD8457-79-19 07:17:00 Test Item Value Reference Range Interpretation Comments Monocytes (test code = Monocytes) 12.1 2.0-12.0 [facility] HospitalXwtvcqqKFMIOKFSIB8163-35-72 07:17:00 Test Item Value Reference Range Interpretation Comments Eosinophils (test code = 1.5 See_Comment [A utomated message] The Eosinophils) system which ge nerated this result tra nsmitted reference range : <=4.0. The reference r maría was not used to int erpret this result as normal/abnormal . [facility] HospitalUtugzrjUYVJBMEQCF7943-16-64 07:17:00 Test Item Value Reference Range Interpretation Comments Basophils (test code = 0.8 See_Comment [Aut omated message] The Basophils) system which ge nerated this result tra nsmitted reference range : <=1.0. The reference r maraí was not used to int erpret this result as normal/abnormal . [facility] HospitalMoamyerLRCOIBZQKU6072-33-43 07:17:00 Test Item Value Reference Range Interpretation Comments Neutrophils # (test code = Neutrophils 7.8 1.5-8.1 #) [facility] HospitalPfwoiliBZQIAHAJVF5566-72-08 07:17:00 Test Item Value Reference Range Interpretation Comments Lymphocytes # (test code = Lymphocytes 1.9 1.0-5.5 #) [facility] HospitalOewkqycLDTVCTEJJE2773-69-29 07:17:00 Test Item Value Reference Range Interpretation Comments Monocytes # (test code 1.4 See_Comment [Aut omated message] The = Monocytes #) system which generated this result tra nsmitted reference range : <=0.8. The reference r maría was not used to int erpret this result as normal/abnormal . [facility] HospitalWwvbbbqAJJFBDTDXW3432-87-02 07:17:00 Test Item Value Reference Range Interpretation Comments Eosinophils # (test code 0.2 See_Comment [A utomated message] The = Eosinophils #) system whic h generated this result tra nsmitted reference range : <=0.5. The reference r maría was not used to int erpret this result as normal/abnormal . [facility]QpcnmpeKBVPDWOTPY7369-92-27 07:17:00 Test Item Value Reference Range Interpretation Comments Basophils # (test code 0.1 See_Comment [Aut omated message] The = Basophils #) system which generated this result tra nsmitted reference range : <=0.2. The reference r maría was not used to int erpret this result as normal/abnormal . [facility]annPARATHYROID [id number] 07:17:00 Test Item Value Reference Range Interpretation Comments Ca Ion WB (test code = Ca Ion WB) 1.20 1.05-1.25 [facility] CenterannPARATHYROID [id number] 07:17:00 Test Item Value Reference Range Interpretation Comments Ca Norm WB (test code = Ca Norm WB) 1.11 1.05-1.25 [facility] CenterannBACTERIAL - [id number] 09:43:00 Test Item Value Reference Range Interpretation Comments MRSA by PCR (test Negative (05/28/19 4:43 code = MRSA by PCR) AM) [facility] CenterannBACTERIAL - [id number] 09:43:00 Test Item Value Reference Range Interpretation Comments MRSA by PCR (test Negative (05/28/19 4:43 code = MRSA by PCR) AM) [facility] CenterannCARDIAC [id number] 05:09:00 Test Item Value Reference Range Interpretation Comments Troponin-I (test code 0.62 See_Comment [Auto mated message] The = Troponin-I) system which g enerated this result transmit maria c reference range : <=0.40. The reference r maría was not used to interpr et this result as karthikeyan l/abnormal. [facility] NikmsmtCAMMRJKJWG5748-26-54 05:09:00 Test Item Value Reference Range Interpretation Comments Segs (test code = Segs) 75.1 45.0-75.0 [facility] CenterMbmvvshWOLVHKQNYV7333-85-71 05:09:00 Test Item Value Reference Range Interpretation Comments Lymphocytes (test code = Lymphocytes) 13.1 20.0-40.0 [facility] CenterZpwbbnzZYCFEDSRFQ5670-64-18 05:09:00 Test Item Value Reference Range Interpretation Comments Monocytes (test code = Monocytes) 11.3 2.0-12.0 [facility]JpmmizoBETQGYISXA7440-97-17 05:09:00 Test Item Value Reference Range Interpretation Comments Eosinophils (test code = 0.2 See_Comment [A utomated message] The Eosinophils) system which ge nerated this result tra nsmitted reference range : <=4.0. The reference r maría was not used to int erpret this result as normal/abnormal . [facility] HospitalIgcdflgWXVOMFTFZX2181-73-22 05:09:00 Test Item Value Reference Range Interpretation Comments Basophils (test code = 0.3 See_Comment [Aut omated message] The Basophils) system which ge nerated this result tra nsmitted reference range : <=1.0. The reference r maría was not used to int erpret this result as normal/abnormal . [facility] HospitalXitvarnROQCCHVLOQ7909-75-07 05:09:00 Test Item Value Reference Range Interpretation Comments Neutrophils # (test code = Neutrophils 8.6 1.5-8.1 #) [facility] CenterWafhdibZYWDLSPGRL6731-34-43 05:09:00 Test Item Value Reference Range Interpretation Comments Lymphocytes # (test code = Lymphocytes 1.5 1.0-5.5 #) [facility] HospitalWkemorhYIQBASPZQB1650-94-92 05:09:00 Test Item Value Reference Range Interpretation Comments Monocytes # (test code 1.3 See_Comment [Aut omated message] The = Monocytes #) system which generated this result tra nsmitted reference range : <=0.8. The reference r maría was not used to int erpret this result as normal/abnormal . [facility] CenterPARATHYROID TRKZHVB7583-25-20 05:09:00 Test Item Value Reference Range Interpretation Comments Ca Ion WB (test code = Ca Ion WB) 1.19 1.05-1.25 [facility] CenterannPARATHYROID [id number] 05:09:00 Test Item Value Reference Range Interpretation Comments Ca Norm WB (test code = Ca Norm WB) 1.12 1.05-1.25 [facility] CenterCARDIAC [id number] 05:09:00 Test Item Value Reference Range Interpretation Comments Troponin-I (test code 0.62 See_Comment [Auto mated message] The = Troponin-I) system which g enerated this result transmit maria c reference range : <=0.40. The reference r maría was not used to interpr et this result as karthikeyan l/abnormal. [facility] HospitalCkuacybJMAKFCOXIR7897-39-56 05:09:00 Test Item Value Reference Range Interpretation Comments Segs (test code = Segs) 75.1 45.0-75.0 [facility] HospitalWayaxlgHXEUJYLPMH5487-13-96 05:09:00 Test Item Value Reference Range Interpretation Comments Lymphocytes (test code = Lymphocytes) 13.1 20.0-40.0 [facility] HospitalRfwwwjxQONNQIMVCY4739-64-14 05:09:00 Test Item Value Reference Range Interpretation Comments Monocytes (test code = Monocytes) 11.3 2.0-12.0 [facility] HospitalTqcieseZGKABGWFAV5864-37-50 05:09:00 Test Item Value Reference Range Interpretation Comments Eosinophils (test code = 0.2 See_Comment [A utomated message] The Eosinophils) system which ge nerated this result tra nsmitted reference range : <=4.0. The reference r maría was not used to int erpret this result as normal/abnormal . [facility] HospitalSrygjgdUQLQRPJRPI7505-27-21 05:09:00 Test Item Value Reference Range Interpretation Comments Basophils (test code = 0.3 See_Comment [Aut omated message] The Basophils) system which ge nerated this result tra nsmitted reference range : <=1.0. The reference r maría was not used to int erpret this result as normal/abnormal . [facility] HospitalEhgbpzzLHBOKTBCQE5352-66-62 05:09:00 Test Item Value Reference Range Interpretation Comments Neutrophils # (test code = Neutrophils 8.6 1.5-8.1 #) [facility] HospitalUewozmfLHOYNFZNGV5150-03-56 05:09:00 Test Item Value Reference Range Interpretation Comments Lymphocytes # (test code = Lymphocytes 1.5 1.0-5.5 #) [facility] HospitalMmcrrvdHYZBCXAKZD6163-14-90 05:09:00 Test Item Value Reference Range Interpretation Comments Monocytes # (test code 1.3 See_Comment [Aut omated message] The = Monocytes #) system which generated this result tra nsmitted reference range : <=0.8. The reference r maría was not used to int erpret this result as normal/abnormal . [facility]ATHYROID [id number] 05:09:00 Test Item Value Reference Range Interpretation Comments Ca Ion WB (test code = Ca Ion WB) 1.19 1.05-1.25 [facility]annPARATHYROID ZFCBMCY2969-35-07 05:09:00 Test Item Value Reference Range Interpretation Comments Ca Norm WB (test code = Ca Norm WB) 1.12 1.05-1.25 [facility] [id number] 21:41:00 Test Item Value Reference Range Interpretation Comments Troponin-I (test code 0.73 See_Comment [Auto mated message] The = Troponin-I) system which g enerated this result transmit maria c reference range : <=0.40. The reference r maría was not used to interpr et this result as karthikeyan l/abnormal. [facility]annCARDIAC AFGSUEQ6324-77-12 21:41:00 Test Item Value Reference Range Interpretation Comments Troponin-I (test code 0.73 See_Comment [Auto mated message] The = Troponin-I) system which g enerated this result transmit maria c reference range : <=0.40. The reference r maría was not used to interpr et this result as karthikeyan l/abnormal. [facility] LudyannCARDIAC TCYVVTQ0828-87-48 14:27:00 Test Item Value Reference Range Interpretation Comments Troponin-I (test code 0.53 See_Comment [Auto mated message] The = Troponin-I) system which g enerated this result transmit maria c reference range : <=0.40. The reference r maría was not used to interpr et this result as karthikeyan l/abnormal. [facility] LudyannCARDIAC [id number] 14:27:00 Test Item Value Reference Range Interpretation Comments Troponin-I (test code 0.53 See_Comment [Auto mated message] The = Troponin-I) system which g enerated this result transmit maria c reference range : <=0.40. The reference r maría was not used to interpr et this result as karthikeyan l/abnormal. [facility]annCIPROFLOXACIN:SUSC:PT:ISOLATE:ORDQN:[id number] 13:00:00 Test Item Value Reference Range Interpretation Comments Gram Stain Report Gram Stain Performed By: (test code = Gram [facility] [place] Stain Report) [facility] HermannCIPROFLOXACIN:SUSC:PT:ISOLATE:ORDQN:[id number] 13:00:00 Test Item Value Reference Range Interpretation Comments Culture: Respiratory Few Serratia w/Gram Stain (test code marcescens Few Yeast = Culture: Respiratory Normal Respiratory w/Gram Stain) [facility] CenterCIPROFLOXACIN:SUSC:PT:ISOLATE:ORDQN:[id number] 13:00:00 Test Item Value Reference Range Interpretation Comments Serratia marcescens (test Serratia marcescens code = Serratia marcescens) [facility] CenterannCIPROFLOXACIN:SUSC:PT:ISOLATE:ORDQN:[id number] 13:00:00 Test Item Value Reference Range Interpretation Comments Gram Stain Report Gram Stain Performed By: (test code = Gram [facility] Stain Report) [facility]annCIPROFLOXACIN:SUSC:PT:ISOLATE:ORDQN:[id number] 13:00:00 Test Item Value Reference Range Interpretation Comments Culture: Respiratory Few Serratia w/Gram Stain (test code marcescens Few Yeast = Culture: Respiratory Normal Respiratory w/Gram Stain) [facility]PROFLOXACIN:SUSC:PT:ISOLATE:ORDQN:[id number] 13:00:00 Test Item Value Reference Range Interpretation Comments Serratia marcescens (test Serratia marcescens code = Serratia marcescens) [facility]2019-09-10 05:32:00 Test Item Value Reference Range Interpretation Comments Total Protein (test code = Total 6.6 6.4-8.4 Protein) [facility]2019-09-10 05:32:00 Test Item Value Reference Range Interpretation Comments Albumin Lvl (test code = Albumin Lvl) 3.3 3.5-5.0 [facility]2019-09-10 05:32:00 Test Item Value Reference Range Interpretation Comments ALT (test code = ALT) 28 See_Comment [Auto mated message] The system which ge nerated this result transmit maria c reference range : <=65. The reference range was not used to interpr et this result as karthikeyan l/abnormal. [facility]2019-09-10 05:32:00 Test Item Value Reference Range Interpretation Comments AST (test code = AST) 38 See_Comment [Auto mated message] The system which ge nerated this result transmit maria c reference range : <=37. The reference range was not used to interpr et this result as karthikeyan l/abnormal. [facility]2019-09-10 05:32:00 Test Item Value Reference Range Interpretation Comments Alk Phos (test code = Alk Phos) 77 39-136 [facility]2019-09-10 05:32:00 Test Item Value Reference Range Interpretation Comments Bili Total (test code = Bili Total) 0.5 0.2-1.3 [facility]2019-09-10 05:32:00 Test Item Value Reference Range Interpretation Comments B/C Ratio (test code = B/C Ratio) 24 1 6-25 [facility]2019-09-10 05:32:00 Test Item Value Reference Range Interpretation Comments Globulin (test code = Globulin) 3.3 2.7-4.2 [facility]2019-09-10 05:32:00 Test Item Value Reference Range Interpretation Comments A/G Ratio (test code = A/G Ratio) 1.0 1 0.7-1.6 [facility]2019-09-10 05:32:00 Test Item Value Reference Range Interpretation Comments Procalcitonin Lvl (test 5.00 See_Comment [Au tomated message] code = Procalcitonin Lvl) Th e system which generated this result transmitted ref erence range: <=0.10. The reference range was not used to interpr et this result as normal/abnormal . [facility] H[id number] 05:32:00 Test Item Value Reference Range Interpretation Comments Segs (test code = Segs) 76.1 45.0-75.0 [facility] H[id number] 05:32:00 Test Item Value Reference Range Interpretation Comments Lymphocytes (test code = Lymphocytes) 12.8 20.0-40.0 [facility] HospitalLwyanczHUSJAYQYOE7972-88-06 05:32:00 Test Item Value Reference Range Interpretation Comments Monocytes (test code = Monocytes) 10.8 2.0-12.0 [facility] Hos[id number] 05:32:00 Test Item Value Reference Range Interpretation Comments Basophils (test code = 0.3 See_Comment [Aut omated message] The Basophils) system which ge nerated this result tra nsmitted reference range : <=1.0. The reference r maría was not used to int erpret this result as normal/abnormal . [facility]CztknoaQICIWPVMJC2684-77-73 05:32:00 Test Item Value Reference Range Interpretation Comments Neutrophils # (test code = Neutrophils 12.4 1.5-8.1 #) [facility] [id number] 05:32:00 Test Item Value Reference Range Interpretation Comments Lymphocytes # (test code = Lymphocytes 2.1 1.0-5.5 #) [facility] H[id number] 05:32:00 Test Item Value Reference Range Interpretation Comments Monocytes # (test code 1.8 See_Comment [Aut omated message] The = Monocytes #) system which generated this result tra nsmitted reference range : <=0.8. The reference r maría was not used to int erpret this result as normal/abnormal . [facility] HospitalATHYROID [id number] 05:32:00 Test Item Value Reference Range Interpretation Comments Ca Ion WB (test code = Ca Ion WB) 1.07 1.05-1.25 [facility] [id number] 05:32:00 Test Item Value Reference Range Interpretation Comments Ca Norm WB (test code = Ca Norm WB) 1.04 1.05-1.25 [facility] [id number] 05:32:00 Test Item Value Reference Range Interpretation Comments U Creatinine (test code = U 184.00 Creatinine) [facility] [id number] 05:32:00 Test Item Value Reference Range Interpretation Comments U Protein (test code = U Protein) 39.4 [facility] [id number] 05:32:00 Test Item Value Reference Range Interpretation Comments U Prot/Creat (test code = U 0.21 1 Prot/Creat) [facility] CenterCulture: [id number] 05:32:00 Test Item Value Reference Range Interpretation Comments Culture: Urine (test code = No Growth Culture: Urine) [facility] [id number] 05:32:00 Test Item Value Reference Range Interpretation Comments Total Protein (test code = Total 6.6 6.4-8.4 Protein) [facility] [id number] 05:32:00 Test Item Value Reference Range Interpretation Comments Albumin Lvl (test code = Albumin Lvl) 3.3 3.5-5.0 [facility]2019-09-10 05:32:00 Test Item Value Reference Range Interpretation Comments ALT (test code = ALT) 28 See_Comment [Auto mated message] The system which ge nerated this result transmit maria c reference range : <=65. The reference range was not used to interpr et this result as karthikeyan l/abnormal. [facility]2019-09-10 05:32:00 Test Item Value Reference Range Interpretation Comments AST (test code = AST) 38 See_Comment [Auto mated message] The system which ge nerated this result transmit maria c reference range : <=37. The reference range was not used to interpr et this result as karthikeyan l/abnormal. [facility] CenterImpulcityHARRIS REGIONAL [id number] 05:32:00 Test Item Value Reference Range Interpretation Comments Alk Phos (test code = Alk Phos) 77 39-136 [facility] CenterImpulcityHARRIS REGIONAL [id number] 05:32:00 Test Item Value Reference Range Interpretation Comments Bili Total (test code = Bili Total) 0.5 0.2-1.3 [facility]2019-09-10 05:32:00 Test Item Value Reference Range Interpretation Comments B/C Ratio (test code = B/C Ratio) 24 1 6-25 [facility]2019-09-10 05:32:00 Test Item Value Reference Range Interpretation Comments Globulin (test code = Globulin) 3.3 2.7-4.2 [facility]2019-09-10 05:32:00 Test Item Value Reference Range Interpretation Comments A/G Ratio (test code = A/G Ratio) 1.0 1 0.7-1.6 [facility]2019-09-10 05:32:00 Test Item Value Reference Range Interpretation Comments Procalcitonin Lvl (test 5.00 See_Comment [Au tomated message] code = Procalcitonin Lvl) Th e system which generated this result transmitted ref erence range: <=0.10. The reference range was not used to interpr et this result as normal/abnormal . [facility] H[id number] 05:32:00 Test Item Value Reference Range Interpretation Comments Segs (test code = Segs) 76.1 45.0-75.0 [facility] HospitalKvxrbrqOLKNKWTKFV5886-89-33 05:32:00 Test Item Value Reference Range Interpretation Comments Lymphocytes (test code = Lymphocytes) 12.8 20.0-40.0 [facility] HospitalYzmoukhEPOKTGMTTV9616-74-87 05:32:00 Test Item Value Reference Range Interpretation Comments Monocytes (test code = Monocytes) 10.8 2.0-12.0 [facility] HospitalFadmvhqMAOIAQGKFX7515-23-94 05:32:00 Test Item Value Reference Range Interpretation Comments Basophils (test code = 0.3 See_Comment [Aut omated message] The Basophils) system which ge nerated this result tra nsmitted reference range : <=1.0. The reference r maría was not used to int erpret this result as normal/abnormal . [facility] [id number] 05:32:00 Test Item Value Reference Range Interpretation Comments Neutrophils # (test code = Neutrophils 12.4 1.5-8.1 #) [facility] H[id number] 05:32:00 Test Item Value Reference Range Interpretation Comments Lymphocytes # (test code = Lymphocytes 2.1 1.0-5.5 #) [facility] HospitalMiykqrpIZJHRIMRUE3616-99-13 05:32:00 Test Item Value Reference Range Interpretation Comments Monocytes # (test code 1.8 See_Comment [Aut omated message] The = Monocytes #) system which generated this result tra nsmitted reference range : <=0.8. The reference r maría was not used to int erpret this result as normal/abnormal . [facility]2019-09-10 05:32:00 Test Item Value Reference Range Interpretation Comments Ca Ion WB (test code = Ca Ion WB) 1.07 1.05-1.25 [facility]2019-09-10 05:32:00 Test Item Value Reference Range Interpretation Comments Ca Norm WB (test code = Ca Norm WB) 1.04 1.05-1.25 [facility]2019-09-10 05:32:00 Test Item Value Reference Range Interpretation Comments U Creatinine (test code = U 184.00 Creatinine) [facility]2019-09-10 05:32:00 Test Item Value Reference Range Interpretation Comments U Protein (test code = U Protein) 39.4 [facility]2019-09-10 05:32:00 Test Item Value Reference Range Interpretation Comments U Prot/Creat (test code = U 0.21 1 Prot/Creat) [facility] CenterCulture: [id number] 05:32:00 Test Item Value Reference Range Interpretation Comments Culture: Urine (test code = No Growth Culture: Urine) [facility] AND [id number] 20:46:43 Test Item Value Reference Range Interpretation Comments UA Color (test code = Yellow (05/26/19 3:46 PM) UA Color) [facility] AND [id number] 20:46:43 Test Item Value Reference Range Interpretation Comments UA Turbidity (test code Slight *ABN*(05/26/19 = UA Turbidity) 3:46 PM) [facility] AND [id number] 20:46:43 Test Item Value Reference Range Interpretation Comments UA Spec Grav (test code = UA Spec 1.032 1 Grav) [facility] AND [id number] 20:46:43 Test Item Value Reference Range Interpretation Comments UA pH (test code = UA pH) 5.0 1 5.0-8.0 [facility] AND [id number] 20:46:43 Test Item Value Reference Range Interpretation Comments UA Protein (test code = UA Protein) 100 mg/dL [facility] AND [id number] 20:46:43 Test Item Value Reference Range Interpretation Comments UA Glucose (test code = UA Glucose) 50mg/dl [facility] AND [id number] 20:46:43 Test Item Value Reference Range Interpretation Comments UA Ketones (test code = Trace *ABN*(05/26/19 UA Ketones) 3:46 PM) [facility] AND [id number] 20:46:43 Test Item Value Reference Range Interpretation Comments UA Bili (test code = Negative *NA*(05/26/19 UA Bili) 3:46 PM) [facility] AND [id number] 20:46:43 Test Item Value Reference Range Interpretation Comments UA Blood (test code = Small *ABN*(05/26/19 UA Blood) 3:46 PM) [facility] AND [id number] 20:46:43 Test Item Value Reference Range Interpretation Comments UA Urobilinogen (test code = UA 2.0 0.1-1.0 Urobilinogen) [facility] AND [id number] 20:46:43 Test Item Value Reference Range Interpretation Comments UA Nitrite (test code Negative (05/26/19 3:46 = UA Nitrite) PM) [facility] AND [id number] 20:46:43 Test Item Value Reference Range Interpretation Comments UA Leuk Est (test Negative (05/26/19 3:46 code = UA Leuk Est) PM) [facility] AND [id number] 20:46:43 Test Item Value Reference Range Interpretation Comments UA Sq Epi (test code = UA Sq Occasional /LPF Epi) [facility] AND [id number] 20:46:43 Test Item Value Reference Range Interpretation Comments UA WBC (test code = 5 See_Comment [Automa maria c message] The UA WBC) system which ge nerated this result transmit maria c reference range : <=5. The reference range was not used to interpr et this result as karthikeyan l/abnormal. [facility] AND [id number] 20:46:43 Test Item Value Reference Range Interpretation Comments UA RBC (test code = 6 See_Comment [Automa maria c message] The UA RBC) system which ge nerated this result transmit maria c reference range : <=2. The reference range was not used to interpr et this result as karthikeyan l/abnormal. [facility] AND [id number] 20:46:43 Test Item Value Reference Range Interpretation Comments UA Mucus (test code = UA Mucus) Few /LPF [facility] AND [id number] 20:46:43 Test Item Value Reference Range Interpretation Comments UA Amorph Lamar (test code = Occasional /HPF UA Amorph Lamar) [facility] AND [id number] 20:46:43 Test Item Value Reference Range Interpretation Comments UA Hyal Cast (test 5 See_Comment [Automat ed message] The code = UA Hyal Cast) system which generated this result transmit maria c reference range : <=2. The reference range was not used to interpr et this result as karthikeyan l/abnormal. [facility] AND [id number] 20:46:43 Test Item Value Reference Range Interpretation Comments UA WBC Cast (test code = UA WBC Cast) 1 [facility] AND [id number] 20:46:43 Test Item Value Reference Range Interpretation Comments UA Color (test code = Yellow (05/26/19 3:46 PM) UA Color) [facility] AND [id number] 20:46:43 Test Item Value Reference Range Interpretation Comments UA Turbidity (test code Slight *ABN*(05/26/19 = UA Turbidity) 3:46 PM) [facility] AND [id number] 20:46:43 Test Item Value Reference Range Interpretation Comments UA Spec Grav (test code = UA Spec 1.032 1 Grav) [facility] AND [id number] 20:46:43 Test Item Value Reference Range Interpretation Comments UA pH (test code = UA pH) 5.0 1 5.0-8.0 [facility] AND [id number] 20:46:43 Test Item Value Reference Range Interpretation Comments UA Protein (test code = UA Protein) 100 mg/dL [facility] AND [id number] 20:46:43 Test Item Value Reference Range Interpretation Comments UA Glucose (test code = UA Glucose) 50mg/dl [facility] AND [id number] 20:46:43 Test Item Value Reference Range Interpretation Comments UA Ketones (test code = Trace *ABN*(05/26/19 UA Ketones) 3:46 PM) [facility] AND [id number] 20:46:43 Test Item Value Reference Range Interpretation Comments UA Bili (test code = Negative *NA*(05/26/19 UA Bili) 3:46 PM) [facility] AND [id number] 20:46:43 Test Item Value Reference Range Interpretation Comments UA Blood (test code = Small *ABN*(05/26/19 UA Blood) 3:46 PM) [facility] AND [id number] 20:46:43 Test Item Value Reference Range Interpretation Comments UA Urobilinogen (test code = UA 2.0 0.1-1.0 Urobilinogen) [facility] AND [id number] 20:46:43 Test Item Value Reference Range Interpretation Comments UA Nitrite (test code Negative (05/26/19 3:46 = UA Nitrite) PM) [facility] AND [id number] 20:46:43 Test Item Value Reference Range Interpretation Comments UA Leuk Est (test Negative (05/26/19 3:46 code = UA Leuk Est) PM) [facility] [id number] 20:46:43 Test Item Value Reference Range Interpretation Comments UA Sq Epi (test code = UA Sq Occasional /LPF Epi) [facility] [id number] 20:46:43 Test Item Value Reference Range Interpretation Comments UA WBC (test code = 5 See_Comment [Automa maria c message] The UA WBC) system which ge nerated this result transmit maria c reference range : <=5. The reference range was not used to interpr et this result as karthikeyan l/abnormal. [facility] [id number] 20:46:43 Test Item Value Reference Range Interpretation Comments UA RBC (test code = 6 See_Comment [Automa maria c message] The UA RBC) system which ge nerated this result transmit maria c reference range : <=2. The reference range was not used to interpr et this result as karthikeyan l/abnormal. [facility] [id number] 20:46:43 Test Item Value Reference Range Interpretation Comments UA Mucus (test code = UA Mucus) Few /LPF [facility] [id number] 20:46:43 Test Item Value Reference Range Interpretation Comments UA Amorph Lamar (test code = Occasional /HPF UA Amorph Lamar) [facility] [id number] 20:46:43 Test Item Value Reference Range Interpretation Comments UA Hyal Cast (test 5 See_Comment [Automat ed message] The code = UA Hyal Cast) system which generated this result transmit maria c reference range : <=2. The reference range was not used to interpr et this result as karthikeyan l/abnormal. [facility] [id number] 20:46:43 Test Item Value Reference Range Interpretation Comments UA WBC Cast (test code = UA WBC Cast) 1 [facility] [id number] 20:20:00 Test Item Value Reference Range Interpretation Comments U Amph Scr (test code Negative *NA*(05/26/19 = U Amph Scr) 3:20 PM) [facility] [id number] 20:20:00 Test Item Value Reference Range Interpretation Comments U Tereza Scr (test code Negative *NA*(05/26/19 = U Tereza Scr) 3:20 PM) [facility] [id number] 20:20:00 Test Item Value Reference Range Interpretation Comments U Benzodiaz Scr (test Negative *NA*(05/26/19 code = U Benzodiaz Scr) 3:20 PM) [facility] [id number] 20:20:00 Test Item Value Reference Range Interpretation Comments U Cocaine Scr (test Negative *NA*(05/26/19 code = U Cocaine Scr) 3:20 PM) [facility] [id number] 20:20:00 Test Item Value Reference Range Interpretation Comments U Cannab Scr (test Negative *NA*(05/26/19 code = U Cannab Scr) 3:20 PM) [facility] [id number] 20:20:00 Test Item Value Reference Range Interpretation Comments U Opiate Scr (test Negative *NA*(05/26/19 code = U Opiate Scr) 3:20 PM) [facility] [id number] 20:20:00 Test Item Value Reference Range Interpretation Comments U Phencyclidine Scr (test Negative *NA*(05/26/19 code = U Phencyclidine 3:20 PM) Scr) [facility] [id number] 20:20:00 Test Item Value Reference Range Interpretation Comments UDS Note (test code = See Note (05/26/19 3:20 UDS Note) PM) [facility] [id number] 20:20:00 Test Item Value Reference Range Interpretation Comments U Amph Scr (test code Negative *NA*(05/26/19 = U Amph Scr) 3:20 PM) [facility] [id number] 20:20:00 Test Item Value Reference Range Interpretation Comments U Tereza Scr (test code Negative *NA*(05/26/19 = U Tereza Scr) 3:20 PM) [facility] [id number] 20:20:00 Test Item Value Reference Range Interpretation Comments U Benzodiaz Scr (test Negative *NA*(05/26/19 code = U Benzodiaz Scr) 3:20 PM) [facility] [id number] 20:20:00 Test Item Value Reference Range Interpretation Comments U Cocaine Scr (test Negative *NA*(05/26/19 code = U Cocaine Scr) 3:20 PM) [facility] [id number] 20:20:00 Test Item Value Reference Range Interpretation Comments U Cannab Scr (test Negative *NA*(05/26/19 code = U Cannab Scr) 3:20 PM) [facility] [id number] 20:20:00 Test Item Value Reference Range Interpretation Comments U Opiate Scr (test Negative *NA*(05/26/19 code = U Opiate Scr) 3:20 PM) [facility] [id number] 20:20:00 Test Item Value Reference Range Interpretation Comments U Phencyclidine Scr (test Negative *NA*(05/26/19 code = U Phencyclidine 3:20 PM) Scr) [facility]2019-09-09 20:20:00 Test Item Value Reference Range Interpretation Comments UDS Note (test code = See Note (05/26/19 3:20 UDS Note) PM) [facility]2019-09-09 17:18:00 Test Item Value Reference Range Interpretation Comments Lactic Acid Lvl (test code = Lactic 1.6 0.5-2.2 Acid Lvl) [facility] [id number] 17:18:00 Test Item Value Reference Range Interpretation Comments ACT (TEG) Rapid (test code = ACT (TEG) 121 s 86-118 Rapid) [facility] [id number] 17:18:00 Test Item Value Reference Range Interpretation Comments Split Point Rapid (test code = Split 0.7 min Point Rapid) [facility] [id number] 17:18:00 Test Item Value Reference Range Interpretation Comments R-time Rapid (test code = R-time 0.8 min 0.4-0.7 Rapid) [facility] [id number] 17:18:00 Test Item Value Reference Range Interpretation Comments K-time Rapid (test code = K-time 1.3 min 0.6-2.3 Rapid) [facility] H[id number] 17:18:00 Test Item Value Reference Range Interpretation Comments Angle Rapid (test code = Angle 74 degrees 64-80 Rapid) [facility] [id number] 17:18:00 Test Item Value Reference Range Interpretation Comments Max Amplitude Rapid (test code = Max 73 mm 52-71 Amplitude Rapid) [facility] Ho[id number] 17:18:00 Test Item Value Reference Range Interpretation Comments G-value Rapid (test code = G-value 13.4 5.0-11.6 Rapid) [facility] H[id number] 17:18:00 Test Item Value Reference Range Interpretation Comments Estimated % Lysis Rapid 0.1 See_Comment [Au tomated message] The (test code = Estimated syste m which generated % Lysis Rapid) this result t ransmitted reference range : <=7.5. The reference r maría was not used to int erpret this result as normal/abnormal . [facility] H[id number] 17:18:00 Test Item Value Reference Range Interpretation Comments Eosinophils (test code = 0.2 See_Comment [A utomated message] The Eosinophils) system which ge nerated this result tra nsmitted reference range : <=4.0. The reference r maría was not used to int erpret this result as normal/abnormal . [facility] H[id number] 17:18:00 Test Item Value Reference Range Interpretation Comments Basophils # (test code 0.1 See_Comment [Aut omated message] The = Basophils #) system which generated this result tra nsmitted reference range : <=0.2. The reference r maría was not used to int erpret this result as normal/abnormal . [place] [id number] 17:18:00 Test Item Value Reference Range Interpretation Comments Ethanol Lvl (test code = Ethanol <3.0 mg/dL Lvl) [place] [id number] 17:18:00 Test Item Value Reference Range Interpretation Comments Etoh (%) (test code = Etoh (%)) <0.003 % [facility]2019-09-09 17:18:00 Test Item Value Reference Range Interpretation Comments Lactic Acid Lvl (test code = Lactic 1.6 0.5-2.2 Acid Lvl) [id number] 17:18:00 Test Item Value Reference Range Interpretation Comments ACT (TEG) Rapid (test code = ACT (TEG) 121 s 86-118 Rapid) [facility] [id number] 17:18:00 Test Item Value Reference Range Interpretation Comments Split Point Rapid (test code = Split 0.7 min Point Rapid) [facility] [id number] 17:18:00 Test Item Value Reference Range Interpretation Comments R-time Rapid (test code = R-time 0.8 min 0.4-0.7 Rapid) [facility] H[id number] 17:18:00 Test Item Value Reference Range Interpretation Comments K-time Rapid (test code = K-time 1.3 min 0.6-2.3 Rapid) [facility] H[id number] 17:18:00 Test Item Value Reference Range Interpretation Comments Angle Rapid (test code = Angle 74 degrees 64-80 Rapid) [facility] H[id number] 17:18:00 Test Item Value Reference Range Interpretation Comments Max Amplitude Rapid (test code = Max 73 mm 52-71 Amplitude Rapid) [facility] [id number] 17:18:00 Test Item Value Reference Range Interpretation Comments G-value Rapid (test code = G-value 13.4 5.0-11.6 Rapid) [facility] [id number] 17:18:00 Test Item Value Reference Range Interpretation Comments Estimated % Lysis Rapid 0.1 See_Comment [Au tomated message] The (test code = Estimated syste m which generated % Lysis Rapid) this result t ransmitted reference range : <=7.5. The reference r maría was not used to int erpret this result as normal/abnormal . [facility] [id number] 17:18:00 Test Item Value Reference Range Interpretation Comments Eosinophils (test code = 0.2 See_Comment [A utomated message] The Eosinophils) system which ge nerated this result tra nsmitted reference range : <=4.0. The reference r maría was not used to int erpret this result as normal/abnormal . [facility] [id number] 17:18:00 Test Item Value Reference Range Interpretation Comments Basophils # (test code 0.1 See_Comment [Aut omated message] The = Basophils #) system which generated this result tra nsmitted reference range : <=0.2. The reference r maría was not used to int erpret this result as normal/abnormal . [id number] 17:18:00 Test Item Value Reference Range Interpretation Comments Ethanol Lvl (test code = Ethanol <3.0 mg/dL Lvl) [id number] 17:18:00 Test Item Value Reference Range Interpretation Comments Etoh (%) (test code = Etoh (%)) <0.003 % [facility] [id number] 17:12:00 Test Item Value Reference Range Interpretation Comments ABO/Rh (test code = ABO/Rh) O POS [facility] [id number] 17:12:00 Test Item Value Reference Range Interpretation Comments Antibody Scrn (test Negative (05/26/19 12:12 code = Antibody Scrn) PM) [facility] [id number] 17:12:00 Test Item Value Reference Range Interpretation Comments ABO/Rh (test code = ABO/Rh) O POS [facility] [id number] 17:12:00 Test Item Value Reference Range Interpretation Comments Antibody Scrn (test Negative (05/26/19 12:12 code = Antibody Scrn) PM) [facility]
[2022-09-02] MEDS ORDERED: METHYLPREDNISOLONE 125 MG INJ ONE (06:57)
[2022-09-02] MEDS ORDERED: AZITHROMYCIN 250 MG TAB ONE (06:57)
[2022-09-02] MEDS ORDERED: NA CHLORIDE 0.9% 1,000 ML ONE (06:58)
[2022-09-02] MEDS ORDERED: LEVALBUTEROL 1.25 MG/3 ML NEB ONE ×2 (06:58→07:00)
[2022-09-02] MEDS ORDERED: CEFTRIAXONE 1000 MG/VIAL ONE (06:58)
[2022-09-02] MEDS ORDERED: NA CHLORIDE 0.9% 0 ML IV ONE (06:58)
[2022-09-02] MEDS ORDERED: NA CHLORIDE 0.9% 500 ML ONE (06:58)
[2022-09-02] MEDS ORDERED: Magnesium Sulfate 2gm IVPB 2 G/50 ML BAG IV ONE (06:58)
[2022-09-02] MEDS ORDERED: FAMOTIDINE 20 MG/2 ML VIAL IV ONE (06:58)
[2022-09-02] MEDS ORDERED: IPRATROPIUM BROM 0.5MG/2.5ML ONE (06:58)
--- NOTE | 2022-09-02 07:09 | ER ---
Nurse's Notes [facility] Name: Breanne Montes De Oca Age: 77 yrs Sex: Female : 1945 Arrival Date: 09/02/2022 Time: 06:33 Bed 6 Private MD: RAMAKRISHNA LAGUNA Diagnosis: COPD/ Chronic obstructive pulmonary disease with (acute) exacerbation;Obesity, unspecified Presentation: 09/02 06:47 Chief complaint: Patient states: "I've been short of breath for the past 2 days". as6 Coronavirus screen: At this time, the client does not indicate any symptoms associated with coronavirus-19. Ebola Screen: No symptoms or risks identified at this time. Initial Sepsis Screen: Does the patient meet any 2 criteria? No. Patient's initial sepsis screen is negative. Does the patient have a suspected source of infection? No. Patient's initial sepsis screen is negative. Risk Assessment: Do you want to hurt yourself or someone else? Patient reports no desire to harm self or others. Onset of symptoms was August 31, 2022. 06:47 Method Of Arrival: Ambulatory as6 06:47 Acuity: FIOR 3 as6 Historical: - Allergies: 06:50 NKDA; as6 - PMHx: 06:50 aortic aneurysm; Arthritis; Asthma; Bipolar disorder; Bronchitis; CHF; COPD; as6 Hypertension; Hypothyroidism; Osteoporosis; psoriasis; Urinary incontinence; - PSHx: 06:50 Appendectomy; Cholecystectomy; as6 - Immunization history:: Client reports having NOT received the Covid vaccine. Flu vaccine is not up to date. - Social history:: Smoking status: Patient denies any tobacco usage or history of. Screenin:[facility] ED Fall Risk Assessment (Adult) History of falling in the last 3 months, as6 including since admission No falls in past 3 months (0 pts) Confusion or Disorientation No (0 pts) Intoxicated or Sedated No (0 pts) Impaired Gait No (0 pts) Mobility Assist Device Used Yes (1 pt) Altered Elimination Yes (1 pt) Score/Fall Risk Level 0 - 2 = Low Risk Oriented to surroundings, Maintained a safe environment, Educated pt \\T\\ family on fall prevention, incl call for assistance when getting out of bed, Used ambulatory aids as needed (educated on \\T\\ assisted with). Abuse screen: Denies threats or abuse. Denies injuries from another. Nutritional screening: No deficits noted. Tuberculosis screening: No symptoms or risk factors identified. Fall Risk No fall in past 12 months (0 pts). IV access (20 points). Ambulatory Aid- Crutches/Cane/Walker (15 pts). Total Mcghee Fall Scale indicates High Risk Score (45 or more points). Side Rails Up X 2 Family Present and informed to notify staff if the need to leave the bedside. Assessment: 06:50 General: Appears in no apparent distress. Behavior is calm, cooperative. General: as6 Reports feeling ill for. Pain: Complains of pain in chest. Neuro: Level of Consciousness is awake, alert, obeys commands, Oriented to person, place, time, situation. Cardiovascular: Reports chest pain, shortness of breath. Respiratory: Airway is patent Respiratory effort is even, labored, Breath sounds with wheezes. 07:05 General: Appears in no apparent distress. comfortable, Behavior is calm, cooperative, kc6 appropriate for age. Neuro: Wiley Agitation-Sedation Scale (RASS): 0 - Alert and Calm Level of Consciousness is awake, alert, obeys commands, Oriented to person, place, time, situation, Appropriate for age. Cardiovascular: Heart tones S1 S2 present Capillary refill < 3 seconds. Respiratory: Reports shortness of breath Airway is patent Trachea midline Respiratory effort is even, unlabored, Respiratory pattern is regular, symmetrical, Breath sounds with wheezes bilaterally. GI: No signs and/or symptoms were reported involving the gastrointestinal system. : No signs and/or symptoms were reported regarding the genitourinary system. EENT: No signs and/or symptoms were reported regarding the EENT system. Derm: No signs and/or symptoms reported regarding the dermatologic system. Skin is intact, Skin is pink, warm \\T\\ dry. Musculoskeletal: No signs and/or symptoms reported regarding the musculoskeletal system. Circulation, motion, and sensation intact. Capillary refill < 3 seconds, Range of motion: intact in all extremities. 08:00 Reassessment: attempted to call inside lab for assistance with blood draw, no answer. 6 08:05 Reassessment: Sara Pedraza (daughter) [phone]. jd3 08:05 Reassessment: Patient appears in no apparent distress at this time. No changes from kc6 previously documented assessment. Patient and/or family updated on plan of care and expected duration. Pain level reassessed. Patient is alert, oriented x 3, equal unlabored respirations, skin warm/dry/pink. 08:15 Reassessment: inside lab paged for assistance with blood draw. kc6 08:30 Reassessment: called inside lab for assistance with blood draw. stated they will send kc6 someone down here as soon as they can. stated they're very busy. 09:05 Reassessment: Patient appears in no apparent distress at this time. No changes from kc6 previously documented assessment. Patient and/or family updated on plan of care and expected duration. Pain level reassessed. Patient is alert, oriented x 3, equal unlabored respirations, skin warm/dry/pink. 09:35 Reassessment: phlebotomy at bedside for blood draw. kc6 10:05 Reassessment: Patient appears in no apparent distress at this time. No changes from kc6 previously documented assessment. Patient and/or family updated on plan of care and expected duration. Pain level reassessed. Patient is alert, oriented x 3, equal unlabored respirations, skin warm/dry/pink. 11:05 Reassessment: Patient appears in no apparent distress at this time. No changes from hb previously documented assessment. Patient and/or family updated on plan of care and expected duration. Pain level reassessed. Patient is alert, oriented x 3, equal unlabored respirations, skin warm/dry/pink. 12:05 Reassessment: Patient appears in no apparent distress at this time. No changes from hb previously documented assessment. Patient and/or family updated on plan of care and expected duration. Pain level reassessed. Patient is alert, oriented x 3, equal unlabored respirations, skin warm/dry/pink. Reassessment: Patient appears in no apparent distress at this time. No changes from previously documented assessment. Patient and/or family updated on plan of care and expected duration. Pain level reassessed. Patient is alert, oriented x 3, equal unlabored respirations, skin warm/dry/pink. please see [facility] for further charting. Vital Signs: 06:47 BP 175 / 72; Pulse 66; Resp 20 S; Temp 98.6(O); Pulse Ox 99% on 2 lpm NC; Weight 100.7 as6 kg (R); Height 5 ft. 2 in. (157.48 cm) (R); Pain 6/10; 08:14 BP 142 / 96; Pulse 60; Resp 20 S; Pulse Ox 100% on 2 lpm NC; kc6 09:14 BP 157 / 57; Pulse 62; Resp 27 S; Pulse Ox 97% on 2 lpm NC; kc6 10:14 BP 138 / 97; Pulse 59; Resp 20 S; Pulse Ox 97% on 2.5 lpm NC; kc6 13:40 BP 130 / 59; Pulse 84; Resp 19 S; Pulse Ox 96% on 2 lpm NC; hb 06:47 Body Mass Index 40.60 (100.70 kg, 157.48 cm) as6 ED Course: 06:33 Patient arrived in ED. es 06:34 RAMAKRISHNA LAGUNA is Private Physician. es 06:36 Fritz Gomez MD is Attending Physician. clover 06:47 Edgar Cortes, RN is Primary Nurse. as6 06:50 Triage completed. as6 06:50 Arm band placed on. as6 06:52 Placed in gown. Bed in low position. Call light in reach. Side rails up X 1. Adult w/ as6 patient. 07:05 Ad Maloney is Hospitalizing Provider. clover 07:21 Nunu Dickey MD is Hospitalizing Provider. clover 07:28 COVID-19/FLU A+B Sent. kc6 07:45 Accessed peripheral vein via ultrasound, utilizing dynamic ultrasound technique using jd3 20G Nexia IV catheter ,sterile technique, per hospital protocol. Clean \\T\\ dry. Dressing intact. Good blood return. Flushes easily. 20 G to the left forearm. 07:57 Chest Pa And Lat (2 Views) XRAY In Process Unspecified. EDMS 13:50 No provider procedures requiring assistance completed. Patient admitted, IV remains in hb place. Administered Medications: 07:02 Drug: Xopenex (levalbuterol) 3.75 mg Route: Inhalation; as6 07:55 Follow up: Response: No adverse reaction; Wheezing diminished kc6 07:02 Drug: AtroVENT (ipratropium) Aerosol 0.5 mg Route: Inhalation; as6 07:55 Follow up: Response: No adverse reaction; Wheezing diminished kc6 07:28 Drug: Zithromax (azithromycin) 500 mg Route: PO; kc6 08:41 Follow up: Response: No adverse reaction kc6 08:13 Drug: NS 0.9% 500 ml Route: IV; Rate: bolus; Site: left forearm; kc6 08:42 Follow up: Response: No adverse reaction; IV Status: Completed infusion; IV Intake: kc6 500ml 08:13 Drug: SOLU-Medrol (methylPrednisoLONE) 125 mg Route: IVP; Site: left forearm; kc6 08:42 Follow up: Response: No adverse reaction kc6 08:13 Drug: Magnesium Sulfate 2 grams Route: IVPB; Infused Over: 2 hrs; Site: left forearm; kc6 09:31 Follow up: Response: No adverse reaction; IV Status: Completed infusion; IV Intake: kc6 100ml 08:13 Drug: Pepcid (famotidine) 20 mg Route: IVP; Site: left forearm; kc6 08:42 Follow up: Response: No adverse reaction kc6 08:41 Drug: NS 0.9% 1000 ml Route: IV; Rate: 125 ml/hr; Site: left forearm; kc6 09:41 Follow up: Response: No adverse reaction; IV Status: Infusion continued; IV Intake: kc6 1000ml 10:00 Drug: Rocephin (cefTRIAXone) 1 grams Route: IV; Rate: per protocol; Site: left forearm; kc6 10:29 Follow up: Response: No adverse reaction; IV Status: Completed infusion; IV Intake: [id number] Medication: 13:50 VIS not applicable for this client. hb Intake: 08:42 IV: 500ml; Total: 500ml. kc6 09:31 IV: 100ml; Total: 600ml. kc6 09:41 IV: 1000ml; Total: 1600ml. kc6 10:29 IV: 10ml; Total: 1610ml. kc6 Outcome: 07:08 Decision to Hospitalize by Provider. clover 13:50 Admitted to Med/surg accompanied by tech, via stretcher, room 229, with oxygen, with hb chart, Report called to RIGOBERTO Roman 13:50 Condition: stable 13:50 Instructed on the need for admit. 14:57 Patient left the ED. hb Signatures: Dispatcher [employer] Fritz Hernandez MD MD cha Salyer, Edna es Baxter, Heather, RN RN hb Davies, Jonathon, RN RN jd3 Edgar Cortes, RN RN as6 Sandy Spangler, RN RN kc6
--- NOTE | 2022-09-02 07:09 | EDPHYS ---
Physician Documentation [facility] Name: Breanne Montes De Oca Age: 77 yrs Sex: Female : 1945 Arrival Date: 09/02/2022 Time: 06:33 Bed 6 Private MD: RAMAKRISHNA LAGUNA ED Physician Fritz Gomez HPI: 09/02 06:50 This 77 yrs old Female presents to ER via Ambulatory with complaints of clover Breathing Difficulty. 06:50 The patient has shortness of breath at rest, with light activity. Onset: The clover symptoms/episode began/occurred 2 day(s) ago. Duration: The symptoms are continuous, and are steadily getting worse. The patient's shortness of breath is aggravated by coughing, talking, walking. Associated signs and symptoms: The patient has no apparent associated signs or symptoms. Severity of symptoms: At their worst the symptoms were moderate in the emergency department the symptoms are worse mildly. The patient has experienced similar episodes in the past. Historical: - Allergies: 06:50 NKDA; as6 - PMHx: 06:50 aortic aneurysm; Arthritis; Asthma; Bipolar disorder; Bronchitis; CHF; COPD; as6 Hypertension; Hypothyroidism; Osteoporosis; psoriasis; Urinary incontinence; - PSHx: 06:50 Appendectomy; Cholecystectomy; as6 - Immunization history:: Client reports having NOT received the Covid vaccine. Flu vaccine is not up to date. - Social history:: Smoking status: Patient denies any tobacco usage or history of. ROS: 06:52 Constitutional: Negative for fever, chills, and weight loss, Eyes: Negative for injury, clover pain, redness, and discharge, ENT: Negative for injury, pain, and discharge, Neck: Negative for injury, pain, and swelling, Cardiovascular: Negative for chest pain, palpitations, and edema, Abdomen/GI: Negative for abdominal pain, nausea, vomiting, diarrhea, and constipation, Back: Negative for injury and pain, : Negative for injury, bleeding, discharge, and swelling, MS/Extremity: Negative for injury and deformity, Skin: Negative for injury, rash, and discoloration, Neuro: Negative for headache, weakness, numbness, tingling, and seizure, Psych: Negative for depression, anxiety, suicide ideation, homicidal ideation, and hallucinations, Allergy/Immunology: Negative for hives, rash, and allergies, Endocrine: Negative for neck swelling, polydipsia, polyuria, polyphagia, and marked weight changes, Hematologic/Lymphatic: Negative for swollen nodes, abnormal bleeding, and unusual bruising. 06:52 Constitutional: Positive for fatigue, fever, malaise. 06:52 Respiratory: Positive for cough, shortness of breath, wheezing, inspiratory, expiratory. Exam: 06:52 Constitutional: This is a well developed, well nourished patient who is awake, alert, clover and in no acute distress. Head/Face: Normocephalic, atraumatic. Eyes: Pupils equal round and reactive to light, extra-ocular motions intact. Lids and lashes normal. Conjunctiva and sclera are non-icteric and not injected. Cornea within normal limits. Periorbital areas with no swelling, redness, or edema. ENT: Nares patent. No nasal discharge, no septal abnormalities noted. Tympanic membranes are normal and external auditory canals are clear. Oropharynx with no redness, swelling, or masses, exudates, or evidence of obstruction, uvula midline. Mucous membranes moist. Neck: Trachea midline, no thyromegaly or masses palpated, and no cervical lymphadenopathy. Supple, full range of motion without nuchal rigidity, or vertebral point tenderness. No Meningismus. Chest/axilla: Normal chest wall appearance and motion. Nontender with no deformity. No lesions are appreciated. Cardiovascular: Regular rate and rhythm with a normal S1 and S2. No gallops, murmurs, or rubs. Normal PMI, no JVD. No pulse deficits. Abdomen/GI: Soft, non-tender, with normal bowel sounds. No distension or tympany. No guarding or rebound. No evidence of tenderness throughout. Back: No spinal tenderness. No costovertebral tenderness. Full range of motion. Female : Normal external genitalia. Skin: Warm, dry with normal turgor. Normal color with no rashes, no lesions, and no evidence of cellulitis. MS/ Extremity: Pulses equal, no cyanosis. Neurovascular intact. Full, normal range of motion. Neuro: Awake and alert, GCS 15, oriented to person, place, time, and situation. Cranial nerves II-XII grossly intact. Motor strength 5/5 in all extremities. Sensory grossly intact. Cerebellar exam normal. Normal gait. Psych: Awake, alert, with orientation to person, place and time. Behavior, mood, and affect are within normal limits. 06:52 ECG was reviewed by the Attending Physician. 06:52 Respiratory: mild respiratory distress is noted, Respirations: labored breathing, that is mild, Breath sounds: decreased breath sounds, rhonchi, that are mild, stridor, is not appreciated, + upper airway congestion. wheezing: expiratory Vital Signs: 06:47 BP 175 / 72; Pulse 66; Resp 20 S; Temp 98.6(O); Pulse Ox 99% on 2 lpm NC; Weight 100.7 as6 kg (R); Height 5 ft. 2 in. (157.48 cm) (R); Pain 6/10; 08:14 BP 142 / 96; Pulse 60; Resp 20 S; Pulse Ox 100% on 2 lpm NC; kc6 09:14 BP 157 / 57; Pulse 62; Resp 27 S; Pulse Ox 97% on 2 lpm NC; kc6 10:14 BP 138 / 97; Pulse 59; Resp 20 S; Pulse Ox 97% on 2.5 lpm NC; kc6 13:40 BP 130 / 59; Pulse 84; Resp 19 S; Pulse Ox 96% on 2 lpm NC; hb 06:47 Body Mass Index 40.60 (100.70 kg, 157.48 cm) as6 MDM: 06:36 Patient medically screened. [facility] 09/02 06:43 Order name: Basic Metabolic Panel; Complete Time: 10:37 [facility] 09/02 06:43 Order name: CBC with Diff; Complete Time: 10:37 [facility] 09/02 06:43 Order name: LFT's; Complete Time: 10:37 [facility] 09/02 06:43 Order name: Magnesium; Complete Time: 10:37 [facility] 09/02 06:43 Order name: NT PRO-BNP; Complete Time: 10:37 [facility] 09/02 06:43 Order name: PT-INR [facility] 09/02 06:43 Order name: Troponin HS; Complete Time: 10:37 [facility] 09/02 06:43 Order name: Blood Culture Adult (2) [facility] 09/02 06:43 Order name: COVID-19/FLU A+B; Complete Time: 10:37 [facility] 09/02 06:43 Order name: Lactate w/ 2H reflex if indic.; Complete Time: 10:37 [facility] 09/02 12:00 Order name: CBC with Automated Diff EDMS 09/02 12:00 Order name: CBC with Automated Diff EDMS 09/02 12:00 Order name: Comprehensive Metabolic Panel EDMS 09/02 12:00 Order name: Comprehensive Metabolic Panel EDMS 09/02 06:49 Order name: Chest Pa And Lat (2 Views) XRAY; Complete Time: 10:37 [facility] 09/02 12:00 Order name: Lipid Profile EDMS 09/02 12:00 Order name: Lipid Profile EDMS 09/02 12:00 Order name: Magnesium EDMS 09/02 12:00 Order name: Magnesium EDMS 09/02 12:00 Order name: NT PRO-BNP EDMS 09/02 12:00 Order name: NT PRO-BNP EDMS 09/02 12:00 Order name: Phosphorus EDMS 09/02 12:00 Order name: Phosphorus EDMS 09/02 06:43 Order name: EKG; Complete Time: 06:44 [facility] 09/02 06:43 Order name: Cardiac monitoring; Complete Time: 07:02 [facility] 09/02 06:43 Order name: EKG - Nurse/Tech; Complete Time: 07:02 [facility] 09/02 06:43 Order name: IV Saline Lock; Complete Time: 08:25 [facility] 09/02 06:43 Order name: Labs collected and sent; Complete Time: 09:47 [facility] 09/02 06:43 Order name: O2 Per Protocol; Complete Time: 06:52 [facility] 09/02 06:43 Order name: O2 Sat Monitoring; Complete Time: 06:52 [facility] 09/02 09:37 Order name: Labs - recollect needed: recollect chemistries per [place]; Complete Time: eb 09:47 09/02 12:00 Order name: Heart Healthy EDMS EC:52 Rate is 63 beats/min. Rhythm is regular. QRS [place] is Normal. MO interval is normal. QRS clover interval is normal. No Q waves. T waves are Normal. No ST changes noted. Clinical impression: NSR w/ Non-specific ST/T Changes and No evidence of ischemia. Interpreted by me. Reviewed by me. Administered Medications: 07:02 Drug: Xopenex (levalbuterol) 3.75 mg Route: Inhalation; as6 07:55 Follow up: Response: No adverse reaction; Wheezing diminished kc6 07:02 Drug: AtroVENT (ipratropium) Aerosol 0.5 mg Route: Inhalation; as6 07:55 Follow up: Response: No adverse reaction; Wheezing diminished kc6 07:28 Drug: Zithromax (azithromycin) 500 mg Route: PO; kc6 08:41 Follow up: Response: No adverse reaction kc6 08:13 Drug: NS 0.9% 500 ml Route: IV; Rate: bolus; Site: left forearm; kc6 08:42 Follow up: Response: No adverse reaction; IV Status: Completed infusion; IV Intake: kc6 500ml 08:13 Drug: SOLU-Medrol (methylPrednisoLONE) 125 mg Route: IVP; Site: left forearm; kc6 08:42 Follow up: Response: No adverse reaction kc6 08:13 Drug: Magnesium Sulfate 2 grams Route: IVPB; Infused Over: 2 hrs; Site: left forearm; kc6 09:31 Follow up: Response: No adverse reaction; IV Status: Completed infusion; IV Intake: kc6 100ml 08:13 Drug: Pepcid (famotidine) 20 mg Route: IVP; Site: left forearm; kc6 08:42 Follow up: Response: No adverse reaction kc6 08:41 Drug: NS 0.9% 1000 ml Route: IV; Rate: 125 ml/hr; Site: left forearm; kc6 09:41 Follow up: Response: No adverse reaction; IV Status: Infusion continued; IV Intake: kc6 1000ml 10:00 Drug: Rocephin (cefTRIAXone) 1 grams Route: IV; Rate: per protocol; Site: left forearm; kc6 10:29 Follow up: Response: No adverse reaction; IV Status: Completed infusion; IV Intake: [id number] Disposition Summary: 09/02/22 07:08 Hospitalization Ordered Hospitalization Status: Inpatient Admission clover Location: Telemetry/MedSurg (Inpatient) clover Condition: Fair clover Problem: new clover Symptoms: have improved clover Bed/Room Type: Standard clover Provider: Nunu Dickey(09/02/22 07:21) clover Room Assignment: 229(09/02/22 13:36) eb Diagnosis - COPD/ Chronic obstructive pulmonary disease with (acute) exacerbation clover - Obesity, unspecified clover Forms: - Medication Reconciliation Form clover - SBAR form clover Signatures: Dispatcher [employer] EDFritz Navarro MD MD cha Nieto, Roman, MD MD rn Botello, Elizabeth eb Slawson, Edgar, RN RN as6 Sandy Spangler RN RN kc6 Corrections: (The following items were deleted from the chart) 07:21 07:08 Ad Maloney cha, cha 13:36 07:08 clover caruso
[2022-09-02 08:25] LABS: SARS-COV-2 RT PCR NEGATIVE (NEGATIVE)
--- NOTE | 2022-09-02 09:20 | RAD REPORT ---
EXAM DESCRIPTION: Janellt Pa And Lat (2 Views)09/02/2022 7:55 am CLINICAL HISTORY: Cough COMPARISON: March 2022 FINDINGS: Mild bilateral interstitial opacities. Heart remains enlarged IMPRESSION: Mild bilateral interstitial lung opacities probably interstitial pulmonary edema
[2022-09-02 09:33] LABS: Absolute Lymphocytes (CBC) 1.1 K/uL (0.7-4.9); Hematocrit 37.7 % (36.0-45.0); Lymphocytes % 10.5 % (15.3-44.8); MPV 9.3 fL (7.6-11.3); RBC Red Blood Cell Count 4.05 M/uL (3.86-4.86)
[2022-09-02 09:58] LABS: Protime INR 1.01
[2022-09-02 10:14] LABS: Albumin 3.4 g/dL (3.4-5.0); Bilirubin Direct 0.3 mg/dL (0-0.2); Bilirubin Total 0.9 mg/dL (0.2-1.0); Magnesium 2.5 mg/dL (1.6-2.4); Potassium 4.1 mmol/L (3.5-5.1); Protein, Total 7.3 g/dL (6.4-8.2)
[2022-09-02 10:28] LABS: Troponin High Sensitivity 84.4 pg/mL (<58.9)
[2022-09-02] MEDS ORDERED: ONDANSETRON 4 MG/2 ML VIAL IV PRN (11:55)
[2022-09-02] MEDS ORDERED: ACETAMINOPHEN 500 MG TAB PO PRN (11:55)
[2022-09-02 13:18] VITALS: BMI 40.2
[2022-09-02] MEDS ORDERED: ALBUTEROL 2.5 MG/3 ML NEB SOL NEB SCH (14:00)
[2022-09-02] MEDS ORDERED: ALBUTEROL 2.5 MG/3 ML NEB SOL NEB PRN (14:00)
[2022-09-02] MEDS: IPRATROPIUM BROM 0.5MG/2.5ML NEB SCH ×2 (15:00→20:10)
[2022-09-02] MEDS: METHYLPREDNISOLONE 40 MG INJ IV SCH (16:07)
[2022-09-02] MEDS: CEFTRIAXONE 1,000 MG in NA CHLORIDE 0.9% 50 ML IVPB SCH (20:32)
[2022-09-03] MEDS: METHYLPREDNISOLONE 40 MG INJ IV SCH ×3 (00:59→16:45)
[2022-09-03] MEDS: IPRATROPIUM BROM 0.5MG/2.5ML NEB SCH ×4 (01:20→19:55)
[2022-09-03 07:27] LABS: Absolute Lymphocytes (CBC) 0.8 K/uL (0.7-4.9); Hematocrit 36.5 % (36.0-45.0); Lymphocytes % 7.7 % (15.3-44.8); MCV 93.2 fL (80-100); RBC Red Blood Cell Count 3.92 M/uL (3.86-4.86)
[2022-09-03 07:45] LABS: Albumin 3.1 g/dL (3.4-5.0); Bilirubin Total 0.5 mg/dL (0.2-1.0); Magnesium 2.4 mg/dL (1.6-2.4); Phosphorus 2.9 mg/dL (2.5-4.9); Protein, Total 6.9 g/dL (6.4-8.2)
[2022-09-03] MEDS: CEFTRIAXONE 1,000 MG in NA CHLORIDE 0.9% 50 ML IVPB SCH ×2 (08:49→20:38)
[2022-09-03] MEDS ORDERED: PANTOPRAZOLE 40MG TABLET PO ONE (11:00)
[2022-09-03] MEDS ORDERED: MAGNES/ALUMIN/SIMET 30ML UCUP PO ONE (11:00)
[2022-09-03] MEDS: ALBUTEROL 2.5 MG/3 ML NEB SOL NEB SCH ×3 (12:08→19:55)
--- NOTE | 2022-09-03 15:51 | EKG ---
Test Date: 2022-09-02 Test Time: 06:48:58 Motion Picture Equipment Supervisor: MEASUREMENT RESULTS: Intervals: Rate: 63 CO: 154 QRSD: 80 QT: 424 QTc: 433 [place]: P: 30 CO: 154 QRS: -6 T: 33 INTERPRETIVE STATEMENTS: Normal sinus rhythm Septal infarct, age undetermined Abnormal ECG Compared to ECG 04/06/2022 11:25:30 Myocardial infarct finding now present Sinus arrhythmia no longer present Prolonged QT interval no longer present Electronically Signed On 09-03-22 15:50:37 FURNACE CHARGING MACHINE OPERATOR by Davy Flores
[2022-09-03] MEDS ORDERED: clonazePAM 1 MG TAB PO ONE (16:57)
[2022-09-03] MEDS ORDERED: ALBUTEROL INHALER 60 PUFF/8 GM IH PRN (18:56)
[2022-09-03] MEDS: ATORVASTATIN 10 MG TAB PO SCH (20:38)
[2022-09-03] MEDS: DIVALPROEX DR 500MG TAB PO SCH (20:38)
[2022-09-03] MEDS: GUAIFENESIN 600 MG SA TAB PO SCH (20:38)
[2022-09-04] MEDS: METHYLPREDNISOLONE 40 MG INJ IV SCH ×3 (00:16→17:00)
[2022-09-04] MEDS: HYDRALAZINE HCL 20 MG/ML VIAL IV PRN ×2 (01:28→20:32)
[2022-09-04] MEDS: IPRATROPIUM BROM 0.5MG/2.5ML NEB SCH ×4 (01:30→20:00)
[2022-09-04] MEDS: ALBUTEROL 2.5 MG/3 ML NEB SOL NEB SCH ×4 (01:30→14:05)
[2022-09-04] MEDS: METOPROLOL XL 50 MG TAB PO SCH ×2 (06:05→17:08)
[2022-09-04] MEDS: LEVOTHYROXINE SOD 0.1 MG TAB PO SCH (06:05)
[2022-09-04 07:31] LABS: Potassium 4.4 mmol/L (3.5-5.1)
[2022-09-04] MEDS ORDERED: CEFTRIAXONE 1000 MG/VIAL ONE (07:52)
--- NOTE | 2022-09-04 08:01 | P.HP ---
Certification for Inpatient Patient admitted to: Inpatient With expected LOS: >2 Midnights Patient will require the following post-hospital care: None Practitioner: I am a practitioner with admitting privileges, knowledge of patient current condition, hospital course, and medical plan of care. Services: Services provided to patient in accordance with Admission requirements found in Title 42 Section 412.3 of the Code of Federal Regulations Patient History Date of Service: 09/02/22 Reason for admission: Acute COPD exacerbation History of Present Illness: patient is a 77-year-old female with a history of COPD, who presents to the hospital with 2 days worsening of shortness of breath. Patient has been having persistent cough and congestion. She did have a some expiratory wheezing. She has history of COPD and she is on inhaler therapy. Patient has also been on some dexamethasone but is not getting any better. She came to the emergency room for further evaluation. Chest x-ray with some interstitial edema. Prior CT scan shows thoracic aortic aneurysm which is being followed by Cardiology. Patient also has had alveolitis on prior imaging studies. Patient admits on nebs, steroids, and antibiotics. She is feeling better. She will be admitted to the hospital for further evaluation. Allergies No Known Drug Allergies Allergy (Verified 09/22/19 17:26) Unknown Home Medications: Divalproex Sodium [Depakote] 500 mg PO BID 11/27/14 Pravastatin Sodium [Pravachol] 20 mg PO BEDTIME 11/27/14 Omeprazole [Prilosec] 40 mg PO DAILY 05/25/15 Amlodipine [Norvasc*] 5 mg PO DAILY 06/11/18 Levothyroxine Sodium [Levoxyl] 100 mcg PO [id number] 06/11/18 Losartan Potassium [Cozaar*] 50 mg PO DAILY 06/11/18 Albuterol Sulfate [Proair Hfa] 1 - 2 puff IH Q4HP PRN 09/22/19 Solifenacin Succinate 1 tab PO DAILY 09/22/19 Ergocalciferol (Vitamin D2) [Drisdol] 50,000 unit PO EVERY 7TH DAY #8 capsule 09/23/19 Furosemide [Lasix*] 40 mg PO DAILY #30 tab 03/26/22 Guaifenesin [Mucinex] 600 mg PO BID 7 Days #14 04/12/22 dexAMETHasone [Decadron] 6 mg PO DAILY 4 Days 04/12/22 Fluticasone/Umeclidin/Vilanter [Trelegy Ellipta 100-62.5-25] 1 puff IH DAILY 09/02/22 Metoprolol Succinate [Toprol Xl*] 50 mg PO BID 6AM 6PM 09/02/22 - Past Medical/Surgical History Has patient received pneumonia vaccine in the past: No Diabetic: No -: COPD -: HTN -: BRONCHITIS -: EMPHYSEMA -: HLD -: BIPOLAR DISORDER -: CLAUSTROPHOBIA -: SLEEP APNEA -: HYPOTHYROIDISM -: GERD -: CHF -: Arthritis -: APPY -: LILI - Family History Mother Medical History: Heart disease, Lung disease Father Medical History: Cancer Brother Medical History: Lung disease, Cancer Sister Medical History: Lung disease, Cancer Notes: Melanoma - Social History Smoking Status: Former smoker CD- Drugs: No Review of Systems 10-point ROS is otherwise unremarkable Physical Examination - Vital Signs Temperature: 97.3 F Blood Pressure: 174/76 Pulse: 65 Respirations: 18 Pulse Ox (%): 98 - Physical Exam General: Alert, In no apparent distress, Oriented x3 HEENT: Atraumatic, PERRLA, Mucous membr. moist/pink, EOMI, Sclerae nonicteric Neck: Supple, 2+ carotid pulse no bruit, No LAD, Without JVD or thyroid abnormality Respiratory: Diminished, Expiratory wheezes Cardiovascular: Regular rate/rhythm, Normal S1 S2, No murmurs Gastrointestinal: Normal bowel sounds, Soft and benign, Non-distended, No tenderness Musculoskeletal: No clubbing, No swelling, No tenderness Neurological: Normal speech, Sensation intact, Cranial nerves 3-12 intact, Normal affect Lymphatics: No axilla or inguinal lymphadenopathy - Studies Microbiology Data (last 24 hrs): 09/02/22 09:45 Blood - Blood Anaerobic Blood Culture - Final Assessment & Plan - Problems (Diagnosis) (1) COPD (chronic obstructive pulmonary disease) Onset Date: 05/25/15 Current Visit: No Status: Acute Qualifiers: COPD type: COPD with acute exacerbation Qualified Code(s): J44.1 - Chronic obstructive pulmonary disease with (acute) exacerbation (2) 2019 novel coronavirus-infected pneumonia (NCIP) Current Visit: No Status: Chronic (3) Dyspnea Onset Date: 05/25/15 Current Visit: No Status: Acute Qualifiers: Dyspnea type: dyspnea on exertion Qualified Code(s): R06.09 - Other forms of dyspnea (4) Pulmonary edema Onset Date: 11/30/14 Current Visit: No Status: Acute (5) Thoracic aortic aneurysm Current Visit: Yes Status: Chronic - Plan -nebs, steroids, and antibiotics -O2 per protocol. -Out of bed and ambulate -reviewed echocardiogram; normal ejection fraction -repeat chest x-ray -pulmonary follow-up as an outpatient Discharge Plan: Home Plan to discharge in: Greater than 2 days - Advance Directives Does patient have a Living Will: No Does patient have a Durable POA for Healthcare: No - Code Status/Comfort Care Code Status Assessed: Yes Code Status: Full Code Critical Care: No Time Spent Managing PTS Care (In Minutes): 45
--- NOTE | 2022-09-04 08:05 | P.PN ---
Subjective Date of Service: 09/03/22 Subjective: No new changes, No C/O voiced, Improving patient still feels like she is little more short of breath than baseline. She is a little nervous going home today. Will continue with neb treatments and steroids and possible discharge in the morning. Review of Systems 10-point ROS is otherwise unremarkable Physical Examination - Vital Signs Temperature: 97.3 F Blood Pressure: 174/76 Pulse: 65 Respirations: 18 Pulse Ox (%): 98 - Physical Exam General: Alert, In no apparent distress, Oriented x3 Respiratory: Diminished, Expiratory wheezes Cardiovascular: Regular rate/rhythm, Normal S1 S2, No murmurs Gastrointestinal: Normal bowel sounds, Soft and benign, Non-distended, No tenderness Musculoskeletal: No clubbing, No swelling, No tenderness Neurological: Normal strength at 5/5 x4 extr, Sensation intact, Cranial nerves 3-12 intact, Normal affect - Studies Microbiology Data (last 24 hrs): 09/02/22 09:45 Blood - Blood Anaerobic Blood Culture - Final Medications List Reviewed: Yes Assessment & Plan - Problems (Diagnosis) (1) COPD (chronic obstructive pulmonary disease) Onset Date: 05/25/15 Current Visit: No Status: Acute Qualifiers: COPD type: COPD with acute exacerbation Qualified Code(s): J44.1 - Chronic obstructive pulmonary disease with (acute) exacerbation (2) 2019 novel coronavirus-infected pneumonia (NCIP) Current Visit: No Status: Chronic (3) Dyspnea Onset Date: 05/25/15 Current Visit: No Status: Acute Qualifiers: Dyspnea type: dyspnea on exertion Qualified Code(s): R06.09 - Other forms of dyspnea (4) Pulmonary edema Onset Date: 11/30/14 Current Visit: No Status: Acute (5) Thoracic aortic aneurysm Current Visit: Yes Status: Chronic - Plan Continue with plan of care as mentioned below: -nebs, steroids, and antibiotics -O2 per protocol. -Out of bed and ambulate -reviewed echocardiogram; normal ejection fraction -repeat chest x-ray -pulmonary follow-up as an outpatient Discharge Plan: Home Plan to discharge in: Greater than 2 days - Advance Directives Does patient have a Living Will: No Does patient have a Durable POA for Healthcare: No - Code Status/Comfort Care Code Status: Full Code Critical Care: No Time Spent Managing PTS Care (In Minutes): 30
[2022-09-04] MEDS: AMLODIPINE 5 MG TAB PO SCH (08:36)
[2022-09-04] MEDS: PANTOPRAZOLE 40MG TABLET PO SCH (08:36)
[2022-09-04] MEDS: DIVALPROEX DR 500MG TAB PO SCH ×2 (08:37→20:32)
[2022-09-04] MEDS: LOSARTAN POTASSIUM 50 MG TABLET PO SCH (08:37)
[2022-09-04] MEDS: GUAIFENESIN 600 MG SA TAB PO SCH ×2 (08:37→20:31)
[2022-09-04] MEDS: SOLIFENACIN SUCCIN 5 MG TAB PO SCH (08:37)
[2022-09-04] MEDS: TRELEGY ELLIPTA IH SCH (08:38)
[2022-09-04] MEDS ORDERED: FUROSEMIDE 40 MG TABLET PO SCH (09:00)
[2022-09-04] MEDS ORDERED: NA CHLORIDE 0.9% 50 ML IV ONE (09:50)
[2022-09-04] MEDS: CEFTRIAXONE 1,000 MG in NA CHLORIDE 0.9% 50 ML IVPB SCH (09:52)
--- NOTE | 2022-09-04 10:57 | P.PN ---
Subjective Date of Service: 09/04/22 Chief Complaint: Acute COPD exacerbation No acute events overnight. She reports that her breathing is unchanged compared to yesterday. She reports persistent dry cough and wheezing. Review of Systems 10-point ROS is otherwise unremarkable Respiratory: Cough, Dry, Shortness of Breath, Wheezing Physical Examination - Vital Signs Temperature: 97.3 F Blood Pressure: 165/86 Pulse: 71 Respirations: 18 Pulse Ox (%): 98 - Physical Exam General: Alert, Oriented x3, Mild distress HEENT: Atraumatic, Mucous membr. moist/pink, EOMI, Sclerae nonicteric Neck: JVD not distended Respiratory: Expiratory wheezes, Inspiratory wheezes Cardiovascular: No edema, Regular rate/rhythm, Normal S1 S2, No gallops, No rubs, No murmurs Gastrointestinal: Normal bowel sounds, Soft and benign, Non-distended, No tenderness, No rebound, No guarding Musculoskeletal: No clubbing Integumentary: No rashes Neurological: Normal speech, Cranial nerves 3-12 intact, Normal affect - Studies Microbiology Data (last 24 hrs): 09/02/22 09:45 Blood - Blood Anaerobic Blood Culture - Final Medications List Reviewed: Yes Assessment And Plan - Plan # Acute on Chronic Decompensated Diastolic Congestive Heart Failure with Preserved Ejection Fraction (LVEF 56 %) - Consult Cardiology - recommendations appreciated - Diuresis with IV furosemide for today - NT-Pro BNP = 9,225 - Daily weights - Strict I/O - Cardiac diet, 1.5 L fluid restriction, 2 g Na restriction # Hypertensive Urgency # Type II Non-ST Segment Elevation Myocardial Infarction (Demand Ischemia) secondary to above - resolved # Thoracic Aortic Aneurysm - Continue home amlodipine, metoprolol, losartan - HS troponin = 84.4 -> 30.7 - PRN hydralazine for SBP > 160 mmHg # Acute Chronic Obstructive Pulmonary Disease Exacerbation # Chronic Respiratory Failure on Intermittent Home Oxygen (2 L NC) # Asthma - Evaluation thus far: - Physical exam = wheezing throughout - Chest x-ray = "mild bilateral interstitial lung opacities probably interstitial pulmonary edema." - Plan: - Continue steroids + bronchodilators - Consulted Respiratory Therapy - Supplemental oxygen to maintain SpO2 > 92% - Assess inhaler technique one improved from COPD exacerbation # Hypothyroidism - Continue home levothyroxine # Bipolar Disorder - Continue Divalproex # Psoriasis Sean Perez MD
[2022-09-04] MEDS ORDERED: ALBUTEROL 2.5 MG/3 ML NEB SOL NEB PRN (14:34)
[2022-09-04] MEDS: ATORVASTATIN 10 MG TAB PO SCH (20:31)
[2022-09-05] MEDS: METHYLPREDNISOLONE 40 MG INJ IV SCH ×2 (01:00→08:59)
[2022-09-05] MEDS: IPRATROPIUM BROM 0.5MG/2.5ML NEB SCH ×4 (01:25→20:45)
[2022-09-05 04:05] LABS: Magnesium 2.4 mg/dL (1.6-2.4); Potassium 4.3 mmol/L (3.5-5.1)
[2022-09-05] MEDS: METOPROLOL XL 50 MG TAB PO SCH ×2 (05:11→17:48)
[2022-09-05] MEDS: LEVOTHYROXINE SOD 0.1 MG TAB PO SCH (05:12)
[2022-09-05] MEDS: PANTOPRAZOLE 40MG TABLET PO SCH (08:55)
[2022-09-05] MEDS: AMLODIPINE 5 MG TAB PO SCH (08:55)
[2022-09-05] MEDS: SOLIFENACIN SUCCIN 5 MG TAB PO SCH (08:56)
[2022-09-05] MEDS: GUAIFENESIN 600 MG SA TAB PO SCH ×2 (08:56→20:04)
[2022-09-05] MEDS: LOSARTAN POTASSIUM 50 MG TABLET PO SCH (08:56)
[2022-09-05] MEDS: DIVALPROEX DR 500MG TAB PO SCH ×2 (08:56→20:05)
[2022-09-05] MEDS: TRELEGY ELLIPTA IH SCH (08:57)
[2022-09-05] MEDS ORDERED: CEFTRIAXONE 1,000 MG in NA CHLORIDE 0.9% 50 ML IVPB SCH (09:00)
[2022-09-05] MEDS: CEFDINIR 300 MG CAP PO SCH ×2 (09:29→20:05)
[2022-09-05] MEDS: predniSONE 20 MG TAB PO SCH ×2 (10:04→20:04)
[2022-09-05] MEDS ORDERED: FUROSEMIDE 40 MG/4 ML VIAL IV SCH (12:00)
[2022-09-05] MEDS: FUROSEMIDE 40 MG TABLET PO SCH (12:31)
--- NOTE | 2022-09-05 15:14 | EKG ---
Test Date: 2022-09-05 Test Time: 09:42:46 Decating Machine Operator: STELLA MEASUREMENT RESULTS: Intervals: Rate: 72 NC: 132 QRSD: 90 QT: 400 QTc: 438 [place]: P: 72 NC: 132 QRS: 74 T: 75 INTERPRETIVE STATEMENTS: Sinus rhythm with frequent premature ventricular complexes Otherwise normal ECG Compared to ECG 09/02/2022 06:48:58 Ventricular premature complex(es) now present Myocardial infarct finding no longer present Electronically Signed On 09-05-22 15:13:40 EMERGENCY ROOM CLINICIAN by Davy Flores
--- NOTE | 2022-09-05 16:49 | CON ---
Date of Consultation: 09/05/2022 Reason For Consultation: Shortness of breath. History Of Present Illness: This is a 77-year-old female with history of COPD, severe, presented to the hospital with worsening shortness of breath, wheezing and productive cough and congestion, took h er inhalers, did not feel better, so presented to the emergency room. Denies having any chest pain. No diaphoresis. No nausea, vomiting. Past Medical History: As outlined above in the HPI. Medications: Refer to reconciliation sheet for detailed list. Allergies: NO KNOWN DRUG ALLERGIES. Family History: No premature coronary artery disease. Mother has history of lung cancer. Social History: She is an ex-smoker. Does not drink or use any drugs. Review of Systems: All systems reviewed and they were negative except what mentioned in HPI. Physical Examination: Vital Signs: Showed temperature is 97.1, pulse 74, breathing at 15, blood pressure 171/65, saturatin g 97% on nasal cannula. General: Pleasant elderly female, slightly short of breath. Head and Neck: Pupils are equal, reactive to light. Intact eye movements. No JVD. No cervical lym phadenopathy. Neck is supple. Thyroid is not enlarged. Lungs: Decreased breathing sounds with wheezing and rhonchi bilaterally. Slightly short of breath. Heart: Regular rate and rhythm. No extra sounds. Abdomen: Soft, nontender. Bowel sounds positive. No organomegaly. No masses or hernia. No rigidi ty or rebound. Extremities: Trace edema bilaterally. No clubbing or cyanosis. Intact pulses. Skin: No rash. Neurologic: Alert, awake, oriented x3. No acute focal deficits appreciated. Lymph Nodes: No cervical or axillary lymphadenopathy. Investigations: BUN is 36, creatinine 1.37. Troponins are negative and NT-proBNP was 9229. Hemoglo bin is 12.0. The chest x-ray showed mild pulmonary edema. Assessment And Recommendations: 1.Shortness of breath in part due to severe chronic obstructive pulmonary disease exacerbation for w hich she has been treated by primary hospitalist. Definitely, she has a mild component of fluid rete ntion and congestive heart failure. Recommend to do gentle diuresis, carefully monitor BUN, creatini ne, electrolytes, and a low-sodium diet. Last echo was on March, which showed normal ejection fractio n. 2.Hypertension. Blood pressure is elevated. She has better blood pressure control. She is current ly on Cozaar. Recommend to increase the dose to 100 mg and she will probably benefit from adding hyd rochlorothiazide to it and goal for systolic blood pressure less than 140. 3.Acute on chronic diastolic heart failure exacerbation. She received IV Lasix. She appears to be doing better and appropriately switched to oral Lasix. Monitor BUN, creatinine, electrolytes. SR/MODL Voice ID: [id number] Report ID: [id number]
--- NOTE | 2022-09-05 17:14 | P.PN ---
Subjective Date of Service: 09/05/22 Chief Complaint: Acute COPD exacerbation No acute events overnight. She reports that her breathing is slightly improved compared to yesterday. She reports persistent dry cough and wheezing; however, this is also slightly improved compared to yesterday. Review of Systems 10-point ROS is otherwise unremarkable Respiratory: Cough, Dry, Shortness of Breath, Wheezing Physical Examination - Vital Signs Temperature: 97.1 F Blood Pressure: 171/65 Pulse: 74 Respirations: 15 Pulse Ox (%): 97 - Studies Medications List Reviewed: Yes Assessment And Plan - Plan - Physical Exam General: Alert, Oriented x3, Mild distress HEENT: Atraumatic, Mucous membr. moist/pink, EOMI, Sclerae nonicteric Neck: JVD not distended Respiratory: Diminished throughout, with faint end-expiratory wheezes Cardiovascular: No edema, Regular rate/rhythm, Normal S1 S2, No gallops, No rubs, No murmurs Gastrointestinal: Normal bowel sounds, Soft and benign, Non-distended, No tenderness, No rebound, No guarding Musculoskeletal: No clubbing Integumentary: No rashes Neurological: Normal speech, Cranial nerves 3-12 intact, Normal affect # Acute on Chronic Decompensated Diastolic Congestive Heart Failure with Preserved Ejection Fraction (LVEF 56 %) - Consult Cardiology and spoke with Dr. Flores - recommendations appreciated - Diuresis with IV furosemide for today - NT-Pro BNP = 9,225 - Daily weights - Strict I/O - Cardiac diet, 1.5 L fluid restriction, 2 g Na restriction # Acute Chronic Obstructive Pulmonary Disease Exacerbation # Chronic Respiratory Failure on Intermittent Home Oxygen (2 L NC) # Asthma - Evaluation thus far: - Physical exam = wheezing throughout - Chest x-ray = "mild bilateral interstitial lung opacities probably interstitial pulmonary edema." - Plan: - Continue steroids + bronchodilators - Consulted Respiratory Therapy - Supplemental oxygen to maintain SpO2 > 92% - Assess inhaler technique one improved from COPD exacerbation # Hypertensive Urgency # Type II Non-ST Segment Elevation Myocardial Infarction (Demand Ischemia) secondary to above - resolved # Thoracic Aortic Aneurysm - Continue home amlodipine, metoprolol, losartan (increased from 50 mg to 100 mg) - HS troponin = 84.4 -> 30.7 - PRN hydralazine for SBP > 160 mmHg # Hypothyroidism - Continue home levothyroxine # Bipolar Disorder - Continue Divalproex # Psoriasis Sean Perez MD
[2022-09-05] MEDS ORDERED: LOSARTAN POTASSIUM 50 MG TABLET PO ONE (18:00)
[2022-09-05] MEDS: ATORVASTATIN 10 MG TAB PO SCH (20:05)
[2022-09-06] MEDS: IPRATROPIUM BROM 0.5MG/2.5ML NEB SCH ×2 (02:00→08:38)
[2022-09-06 03:38] LABS: Potassium 4.7 mmol/L (3.5-5.1)
[2022-09-06] MEDS: METOPROLOL XL 50 MG TAB PO SCH (05:12)
[2022-09-06] MEDS: LEVOTHYROXINE SOD 0.1 MG TAB PO SCH (05:12)
[2022-09-06 08:14] VITALS: BP 196/71; TEMP 96.8
--- NOTE | 2022-09-06 08:18 | P.DS ---
Admission Date: 09/03/22 Discharge Date: 09/06/22 Primary Care Provider: Ramakrishna Laguna NP Disposition: ROUTINE DISCHARGE Discharge Condition: GOOD Reason for Admission: Acute COPD exacerbation Consultations: 1. Cardiology Hospital Course: DIAGNOSES: # Acute on Chronic Decompensated Diastolic Congestive Heart Failure with Preserved Ejection Fraction (LVEF 56 %) # Acute Chronic Obstructive Pulmonary Disease Exacerbation # Chronic Respiratory Failure on Intermittent Home Oxygen (2 L NC) # Asthma # Hypertensive Urgency # Type II Non-ST Segment Elevation Myocardial Infarction (Demand Ischemia) secondary to above - resolved # Thoracic Aortic Aneurysm # Hypothyroidism # Bipolar Disorder # Psoriasis HOSPITAL COURSE: Ms. Breanne Montes De Oca is a pleasant 77 year old female with a past medical history significant for chronic respiratory failure on 2 L nasal cannula secondary to chronic obstructive pulmonary disease, chronic diastolic congestive heart failure, hypothyroidism, and bipolar disorder who was admitted to the [facility] on 09/02/2022 for an acute COPD and CHF exacerbation. She was admitted to the Medicine service for further evaluation. She was treated with bronchodilators, steroids, and IV furosemide. Over the course of her hospitalization, her symptoms improved significantly. She was also noted to have a mildly elevated troponin, so Cardiology was consulted. She was evaluated by Dr. Flores, who felt that her troponin was secondary to demand ischemia from COPD and CHF. This morning, her respiratory status has improved significantly and stated that she wishes to go home. On 09/06/2022, she was seen on morning rounds and deemed medically stable for discharge. She was discharged with instructions to schedule follow-up appointments with her PCP (SAULO Laguna) and with Pulmonary Medicine (Dr. Busch). She was provided prescriptions for prednisone and benzonatate. She was given the opportunity to ask questions and reported no further questions. Furthermore, all questions were answered to the best of my ability. A copy of this discharge summary will be sent to the above providers to facilitate continuity of care. Today, I personally spent 20 minutes on her case, of which greater than 50% of the time was spent in patient education, counseling, and coordination of care as described above. Physical Exam General: Alert, Oriented x3, No acute distress HEENT: Atraumatic, Mucous membr. moist/pink, EOMI, Sclerae nonicteric Neck: JVD not distended Respiratory: Diminished throughout, but clear to auscultation bilaterally without wheezes or rales Cardiovascular: No edema, Regular rate/rhythm, Normal S1 S2, No gallops, No rubs, No murmurs Gastrointestinal: Normal bowel sounds, Soft and benign, Non-distended, No tenderness, No rebound, No guarding Musculoskeletal: No clubbing Integumentary: No rashes Neurological: Normal speech, Cranial nerves 3-12 intact, Normal affect Vital Signs/Physical Exam: Temp Pulse Resp BP Pulse Ox 96.8 F 68 18 170/58 H 99 09/06/22 08:00 09/06/22 08:00 09/06/22 08:00 09/06/22 11:13 09/06/22 08:00 Laboratory Data at Discharge: WBC 10.40 K/uL (4.3-10.9) 09/03/22 06:56 Hgb 12.0 g/dL (12.0-15.0) 09/03/22 06:56 Hct 36.5 % (36.0-45.0) 09/03/22 06:56 Plt Count 274 K/uL (152-406) 09/03/22 06:56 PT 11.1 SECONDS (9.5-12.5) 09/02/22 Unknown INR 1.01 09/02/22 Unknown Sodium 138 mmol/L (136-145) 09/06/22 03:11 Potassium 4.7 mmol/L (3.5-5.1) 09/06/22 03:11 BUN 37 mg/dL (7-18) H 09/06/22 03:11 Creatinine 1.33 mg/dL (0.55-1.02) H 09/06/22 03:11 Glucose 111 mg/dL (74-106) H 09/06/22 03:11 Phosphorus 2.9 mg/dL (2.5-4.9) 09/03/22 06:56 Magnesium 2.4 mg/dL (1.6-2.4) 09/05/22 03:04 Total Bilirubin 0.5 mg/dL (0.2-1.0) 09/03/22 06:56 AST 11 U/L (15-37) L 09/03/22 06:56 ALT 17 U/L (13-56) 09/03/22 06:56 Alkaline Phosphatase 106 U/L (45-117) 09/03/22 06:56 Triglycerides 44 mg/dL (<150) 09/03/22 06:56 Cholesterol 143 mg/dL (<200) 09/03/22 06:56 HDL Cholesterol 81 mg/dL (40-60) H 09/03/22 06:56 Cholesterol/HDL Ratio 1.77 09/03/22 06:56 Home Medications: Divalproex Sodium [Depakote] 500 mg PO BID 11/27/14 Pravastatin Sodium [Pravachol] 20 mg PO BEDTIME 11/27/14 Omeprazole [Prilosec] 40 mg PO DAILY 05/25/15 Amlodipine [Norvasc*] 5 mg PO DAILY 06/11/18 Levothyroxine Sodium [Levoxyl] 100 mcg PO [id number] 06/11/18 Albuterol Sulfate [Proair Hfa] 1 - 2 puff IH Q4HP PRN 09/22/19 Solifenacin Succinate 1 tab PO DAILY 09/22/19 Ergocalciferol (Vitamin D2) [Drisdol] 50,000 unit PO EVERY 7TH DAY #8 capsule 09/23/19 Furosemide [Lasix*] 40 mg PO DAILY #30 tab 03/26/22 Guaifenesin [Mucinex] 600 mg PO BID 7 Days #14 04/12/22 Fluticasone/Umeclidin/Vilanter [Trelegy Ellipta 100-62.5-25] 1 puff IH DAILY 09/02/22 Metoprolol Succinate [Toprol Xl*] 50 mg PO BID 6AM 6PM 09/02/22 Benzonatate [Tessalon Perle*] 100 mg PO TID PRN 7 Days #20 cap 09/06/22 Losartan Potassium [Cozaar] 100 mg PO DAILY #30 tab 09/06/22 predniSONE [Prednisone*] 20 mg PO BID 5 Days #10 tab 09/06/22 New Medications: Losartan Potassium [Cozaar] 100 mg PO DAILY #30 tab predniSONE [Prednisone*] 20 mg PO BID 5 Days #10 tab Benzonatate [Tessalon Perle*] 100 mg PO TID PRN 7 Days #20 cap PRN Reason: Cough Physician Discharge Instructions: 1. Please call and schedule a follow-up appointment with your PCP (SAULO Laguna) in 3-5 days - Your losartan dose has been increased from 50 mg to 100 mg - Please have your blood work rechecked with SAULO Laguna to monitor your kidney function and potassium levels 2. Please call and schedule a follow-up appointment with Pulmonary Medicine (Dr. Busch) in 5-7 days Diet: AHA Activity: Ad jessica Followup: Zeeshan Busch MD [ACTIVE - CAN ADMIT] - RAMAKRISHNA LAGUNA [OUTSIDE PHYSICIAN] - Time spent managing pt's care (in minutes): 20
[2022-09-06] MEDS: predniSONE 20 MG TAB PO SCH (08:23)
[2022-09-06] MEDS: PANTOPRAZOLE 40MG TABLET PO SCH (08:23)
[2022-09-06] MEDS: DIVALPROEX DR 500MG TAB PO SCH (08:23)
[2022-09-06] MEDS: GUAIFENESIN 600 MG SA TAB PO SCH (08:23)
[2022-09-06] MEDS: AMLODIPINE 5 MG TAB PO SCH (08:23)
[2022-09-06] MEDS: FUROSEMIDE 40 MG TABLET PO SCH (08:24)
[2022-09-06] MEDS: CEFDINIR 300 MG CAP PO SCH (08:24)
[2022-09-06] MEDS: TRELEGY ELLIPTA IH SCH (08:35)
[2022-09-06] MEDS: SOLIFENACIN SUCCIN 5 MG TAB PO SCH (08:35)
[2022-09-06] MEDS ORDERED: FUROSEMIDE 40 MG TABLET PO SCH (09:00)
[2022-09-06] MEDS ORDERED: LOSARTAN POTASSIUM 50 MG TABLET PO SCH (09:00)
[2022-09-06 09:19] VITALS: O2SAT 97
[2022-09-10] MEDS ORDERED: DRISDOL (VITAMIN D=ERGOCALCIFEROL) 50000 UNIT CAP PO SCH (09:00)
== END 2022-09-06 11:25 | disposition home or self-care (01) | DRG 280 ==
LOC: ER 06:31 → ERHOLD 11:55 → 2ND 13:50 → OBSVTOIN 09-03 16:04
PROVIDERS: ADMIT Hospitalist; ATTEND Internal Medicine
DX: I11.0 Hypertensive heart disease with heart failure (principal); I21.4 Non-ST elevation (NSTEMI) myocardial infarction; I50.33 Acute on chronic diastolic (congestive) heart failure; J44.1 Chronic obstructive pulmonary disease with (acute) exacerbation; Z68.41 Body mass index [BMI] 40.0-44.9, adult; J96.11 Chronic respiratory failure with hypoxia; E66.9 Obesity, unspecified; K21.9 Gastro-esophageal reflux disease without esophagitis; I16.0 Hypertensive urgency; L40.9 Psoriasis, unspecified; F31.9 Bipolar disorder, unspecified; E03.9 Hypothyroidism, unspecified; I71.20 Thoracic aortic aneurysm, without rupture, unspecified; Z79.52 Long term (current) use of systemic steroids; Z90.49 Acquired absence of other specified parts of digestive tract; Z99.81 Dependence on supplemental oxygen; Z86.16 Personal history of COVID-19; Z28.310 Unvaccinated for COVID-19; Z79.890 Hormone replacement therapy; Z79.899 Other long term (current) drug therapy; Z87.891 Personal history of nicotine dependence; Z20.822 Contact with and (suspected) exposure to COVID-19
CPT/HCPCS: 0240U; 36415; 71046; 80048; 80053; 80061; 80076; 83605; 83735; 83880; 84100; 84132; 84484; 85025; 85610; 87040; 93005; 94640; 94760; 96365; 96367; 96375; 97116; 97161; 97530; 99285; G0378; J0360; J2920; J2930; J3475; J7030; J7040; J7512; J7613; J7614; J7644; Q0144

== ENCOUNTER 2023-01-28 13:46 | Emergency (ER) | payer OTHER ==
--- OUTSIDE RECORDS SUMMARY | 2023-01-28 14:08 | XMS REPORT | Continuity of Care Document ---
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 l 15:00: Cozaar) Arash 00 Docusate 2018-09 No Notes: [facility] Sodium 100 2-30 (Same as: l MG Oral 15:00: Colace) Arash Capsule 00 (Do Not [Colace] Crush) Keppra 2018-09 No Notes: Memoria 2-30 (Same l 15:00: as:Keppra) [place] 00 Neurontin 2018-09 No Notes: Memori a 2-30 (Same as: l 15:00: Neurontin) [place] 00 Saline 2018-09 No Notes: [facility] Flush 0.9% 2-30 preservati l 15:00: ve free. Arash 00 Lasix 2018-09 No Notes: Memoria 2-30 (Same as: l 15:00: Lasix) January cause GI upset. Give with food or milk. Losartan 2018-09 No Notes: Memoria 2-30 (Same as: l 15:00: Cozaar) Arash Docusate 2018-09 No Notes: [facility] Sodium 100 2-30 (Same as: l MG Oral 15:00: Colace) Arash Capsule 00 (Do Not [Colace] Crush) Keppra 2018-09 No Notes: Memoria 2-30 (Same l 15:00: as:Keppra) Arash Neurontin 2018-09 No Notes: Memori a 2-30 (Same as: l 15:00: Neurontin) Arash 00 Saline 2018-09 No Notes: [facility] Flush 0.9% 2-30 preservati l 15:00: ve free. [place] Furosemide 2018-09 No Notes: Memor ia 2-30 (Same as: l 15:00: Lasix) Arash MEDICATION WASTE Product Size: 40 mg Product Wasted: ___ mg Furosemide 2018-09 No Notes: Memor ia 2-30 (Same as: l 15:00: Lasix) [place] MEDICATION WASTE Product Size: 40 mg Product Wasted: ___ mg Lasix 2018-09 No Notes: Memoria 2-30 (Same as: l 15:00: Lasix) January cause GI upset. Give with food or milk. Losartan 2018-09 No Notes: Memoria 2-30 (Same as: l 15:00: Cozaar) Arash Docusate 2018-09 No Notes: [facility] Sodium 100 2-30 (Same as: l MG Oral 15:00: Colace) Arash Capsule 00 (Do Not [Colace] Crush) Keppra 2018-09 No Notes: Memoria 2-30 (Same l 15:00: as:Keppra) [place] Neurontin 2018-09 No Notes: Memori a 2-30 (Same as: l 15:00: Neurontin) Arash Saline 2018-09 No Notes: [facility] Flush 0.9% 2-30 preservati l 15:00: ve free. [place] Furosemide 2018-09 No Notes: Memor ia 2-30 (Same as: l 15:00: Lasix) Arash MEDICATION WASTE Product Size: 40 mg Product Wasted: ___ mg Lasix 2018-09 No Notes: Memoria 2-30 (Same as: l 15:00: Lasix) January cause GI upset. Give with food or milk. Losartan 2018-09 No Notes: Memoria 2-30 (Same as: l 15:00: Cozaar) [place] Docusate 2018-09 No Notes: [facility] Sodium 100 2-30 (Same as: l MG Oral 15:00: Colace) [place] Capsule 00 (Do Not [Colace] Crush) Keppra 2018-09 No Notes: Memoria 2-30 (Same l 15:00: as:Keppra) Arash Neurontin 2018-09 No Notes: Memori a 2-30 (Same as: l 15:00: Neurontin) Arash Saline 2018-09 No Notes: [facility] Flush 0.9% 2-30 preservati l 15:00: ve free. [place] Furosemide 2018-09 No Notes: Memor ia 2-30 (Same as: l 15:00: Lasix) [place] 00 MEDICATION WASTE Product Size: 40 mg Product Wasted: ___ mg Lasix 2018-09 No Notes: Memoria 2-30 (Same as: l 15:00: Lasix) January cause GI upset. Give with food or milk. Losartan 2018-09 No Notes: Memoria 2-30 (Same as: l 15:00: Cozaar) Arash 00 Docusate 2018-09 No Notes: [facility] Sodium 100 2-30 (Same as: l MG Oral 15:00: Colace) Arash Capsule 00 (Do Not [Colace] Crush) Keppra 2018-09 No Notes: Memoria 2-30 (Same l 15:00: as:Keppra) Arash 00 Neurontin 2018-09 No Notes: Memori a 2-30 (Same as: l 15:00: Neurontin) Arash 00 Saline 2018-09 No Notes: [facility] Flush 0.9% 2-30 preservati l 15:00: ve free. [place] 00 Furosemide 2018-09 No Notes: Memor ia 2-30 (Same as: l 15:00: Lasix) [place] 00 MEDICATION WASTE Product Size: 40 mg Product Wasted: ___ mg Lasix 2018-09 No Notes: Memoria 2-30 (Same as: l 15:00: Lasix) May [place] 00 cause GI upset. Give with food or milk. Losartan 2018-09 No Notes: Memoria 2-30 (Same as: l 15:00: Cozaar) [place] 00 Docusate 2018-09 No Notes: [facility] Sodium 100 2-30 (Same as: l MG Oral 15:00: Colace) [place] Capsule 00 (Do Not [Colace] Crush) Keppra 2018-09 No Notes: Memoria 2-30 (Same l 15:00: as:Keppra) [place] 00 Neurontin 2018-09 No Notes: Memori a 2-30 (Same as: l 15:00: Neurontin) [place] 00 Saline 2018-09 No Notes: [facility] Flush 0.9% 2-30 preservati l 15:00: ve free. [place] 00 Furosemide 2018-09 No Notes: Memor ia 2-30 (Same as: l 15:00: Lasix) Arash 00 MEDICATION WASTE Product Size: 40 mg Product Wasted: ___ mg Protonix 2018-09 No Notes: Memoria 2-30 Tablet l 13:30: should not [place] 00 be chewed or crushed. (Same as: Protonix) Protonix 2018-09 No Notes: Memoria 2-30 Tablet l 13:30: should not Arash 00 be chewed or crushed. (Same as: Protonix) Protonix 2018-09 No Notes: Memoria 2-30 Tablet l 13:30: should not [place] 00 be chewed or crushed. (Same as: Protonix) Protonix 2018-09 No Notes: Memoria 2-30 Tablet l 13:30: should not Arash 00 be chewed or crushed. (Same as: Protonix) Protonix 2018-09 No Notes: Memoria 2-30 Tablet l 13:30: should not Arash 00 be chewed or crushed. (Same as: Protonix) Protonix 2018-09 No Notes: Memoria 2-30 Tablet l 13:30: should not Arash 00 be chewed or crushed. (Same as: Protonix) Synthroid 2018-09 No Notes: Memori a 2-30 Take 1 l 12:30: hour [place] 00 before or 2 hours after meal; Enteral feeds may interefere with the absorption of this medication . (Same as:Levothr oid, Synthroid) Synthroid 2018-09 No Notes: Memori a 2-30 Take 1 l 12:30: hour [place] 00 before or 2 hours after meal; Enteral feeds may interefere with the absorption of this medication . (Same as:Levothr oid, Synthroid) Synthroid 2018-09 No Notes: Memori a 2-30 Take 1 l 12:30: hour Arash 00 before or 2 hours after meal; Enteral feeds may interefere with the absorption of this medication . (Same as:Levothr oid, Synthroid) Synthroid 2018-09 No Notes: Memori a 2-30 Take 1 l 12:30: hour Arash 00 before or 2 hours after meal; Enteral feeds may interefere with the absorption of this medication . (Same as:Levothr oid, Synthroid) Synthroid 2018-09 No Notes: Memori a 2-30 Take 1 l 12:30: hour [place] 00 before or 2 hours after meal; Enteral feeds may interefere with the absorption of this medication . (Same as:Levothr oid, Synthroid) Synthroid 2018-09 No Notes: Memori a 2-30 Take 1 l 12:30: hour Arash 00 before or 2 hours after meal; Enteral feeds may interefere with the absorption of this medication . (Same as:Levothr oid, Synthroid) Rocephin + 2018-09 No Notes: Memor ia sterile 2-30 (Same As: l water 10 mL 10:00: Rocephin). Arash 00 Use with 100 mL NS and infuse over 30 min MEDICATION WASTE Product Size: 1000 mg Product Wasted: ___ mg Rocephin + 2018-09 No Notes: Memor ia sterile 2-30 (Same As: l water 10 mL 10:00: Rocephin). Arash 00 Use with 100 mL NS and infuse over 30 min MEDICATION WASTE Product Size: 1000 mg Product Wasted: ___ mg Rocephin + 2018-09 No Notes: Memor ia sterile 2-30 (Same As: l water 10 mL 10:00: Rocephin). Arash 00 Use with 100 mL NS and infuse over 30 min MEDICATION WASTE Product Size: 1000 mg Product Wasted: ___ mg Rocephin + 2018-09 No Notes: Memor ia sterile 2-30 (Same As: l water 10 mL 10:00: Rocephin). Arash 00 Use with 100 mL NS and infuse over 30 min MEDICATION WASTE Product Size: 1000 mg Product Wasted: ___ mg Rocephin + 2018-09 No Notes: Memor ia sterile 2-30 (Same As: l water 10 mL 10:00: Rocephin). [place] 00 Use with 100 mL NS and infuse over 30 min MEDICATION WASTE Product Size: 1000 mg Product Wasted: ___ mg Rocephin + 2018-09 No Notes: Memor ia sterile 2-30 (Same As: l water 10 mL 10:00: Rocephin). Arash 00 Use with 100 mL NS and infuse over 30 min MEDICATION WASTE Product Size: 1000 mg Product Wasted: ___ mg Fentanyl 2018-09 No Notes: Memoria 2-30 (Same as: l 09:03: Sublimaze) [place] 00 Preservati ve free. Fentanyl 2018-09 No Notes: Memoria 2-30 (Same as: l 09:03: Sublimaze) [place] 00 Preservati ve free. Fentanyl 2018-09 No Notes: Memoria 2-30 (Same as: l 09:03: Sublimaze) Arash 00 Preservati ve free. Fentanyl 2018-09 No Notes: Memoria 2-30 (Same as: l 09:03: Sublimaze) [place] 00 Preservati ve free. Fentanyl 2018-09 No Notes: Memoria 2-30 (Same as: l 09:03: Sublimaze) Arash 00 Preservati ve free. Fentanyl 2018-09 No Notes: Memoria 2-30 (Same as: l 09:03: Sublimaze) [place] Preservati ve free. Pulmicort 2018-09 No Notes: Memori a Respules 2-30 (Same As: l 07:42: Pulmicort) Arash Pulmicort 2018-09 No Notes: Memori a Respules 2-30 (Same As: l 07:42: Pulmicort) [place] Pulmicort 2018-09 No Notes: Memori a Respules 2-30 (Same As: l 07:42: Pulmicort) Arash Pulmicort 2018-09 No Notes: Memori a Respules 2-30 (Same As: l 07:42: Pulmicort) [place] Pulmicort 2018-09 No Notes: Memori a Respules 2-30 (Same As: l 07:42: Pulmicort) [place] Pulmicort 2018-09 No Notes: Memori a Respules 2-30 (Same As: l 07:42: Pulmicort) [place] Azithromyci 2018-09 No Notes: Samson jere n 2-30 (Same As: l 07:35: Zithromax Arash 00 IV) Azithromyci 2018-09 No Notes: Samson jere n 2-30 (Same As: l 07:35: Zithromax [place] 00 IV) Azithromyci 2018-09 No Notes: Samson jere n 2-30 (Same As: l 07:35: Zithromax [place] 00 IV) Azithromyci 2018-09 No Notes: Samson jere n 2-30 (Same As: l 07:35: Zithromax [place] 00 IV) Azithromyci 2018-09 No Notes: Samson jere n 2-30 (Same As: l 07:35: Zithromax [place] 00 IV) Azithromyci 2018-09 No Notes: Samson jere n 2-30 (Same As: l 07:35: Zithromax [place] 00 IV) Saline 2018-09 No Notes: [facility] Flush 0.9% 2-30 preservati l 07:28: ve free. [place] 00 Saline 2018-09 No Notes: [facility] Flush 0.9% 2-30 preservati l 07:28: ve free. Arash 00 Saline 2018-09 No Notes: Memoria [...] oria n 2-30 Route: PO, l 07:00: [id number], Dosing Weight 115.6, kg, Start date: 09/15/19 1:00:00 KILN WORKER, Duration: 3 day, Stop date: 09/17/19 1:00:00 KILN WORKER, ABX Indication : Non-PNA Respirator y Tract Infection Ceftriaxone 2018-09 No 1 gm, Memor ia 2-30 Route: l 07:00: IVP, [id number], Dosing Weight 115.6, kg, Start date: 09/15/19 1:00:00 KILN WORKER, Duration: 7 day, Stop date: 09/21/19 1:00:00 KILN WORKER, ABX Indication : Pneumonia Rocephin + 2018-09 No Notes: Memor ia sterile 2-30 (Same As: l water 10 mL 07:00: Rocephin). Use with 100 mL NS and infuse over 30 min MEDICATION WASTE Product Size: 1000 mg Product Wasted: ___ mg Azithromyci 2018-09 No 500 mg, Mem oria n 2-30 Route: PO, l 07:00: [id number], Dosing Weight 115.6, kg, Start date: 09/15/19 1:00:00 KILN WORKER, Duration: 3 day, Stop date: 09/17/19 1:00:00 KILN WORKER, ABX Indication : Non-PNA Respirator y Tract Infection Ceftriaxone 2018-09 No 1 gm, Memor ia 2-30 Route: l 07:00: IVP, [id number], Dosing Weight 115.6, kg, Start date: 09/15/19 1:00:00 KILN WORKER, Duration: 7 day, Stop date: 09/21/19 1:00:00 KILN WORKER, ABX Indication : Pneumonia Rocephin + 2018- No Notes: Memor ia sterile 2-30 (Same As: l water 10 mL 07:00: Rocephin). Arash 00 Use with 100 mL NS and infuse over 30 min MEDICATION WASTE Product Size: 1000 mg Product Wasted: ___ mg Azithromyci 2018-09 No 500 mg, Mem oria n 2-30 Route: PO, l 07:00: [id number], [place] 00 Dosing Weight 115.6, kg, Start date: 09/15/19 1:00:00 KILN WORKER, Duration: 3 day, Stop date: 09/17/19 1:00:00 KILN WORKER, ABX Indication : Non-PNA Respirator y Tract Infection Ceftriaxone 2018-09 No 1 gm, Memor ia 2-30 Route: l 07:00: IVP, [id number], Dosing Weight 115.6, kg, Start date: 09/15/19 1:00:00 KILN WORKER, Duration: 7 day, Stop date: 09/21/19 1:00:00 KILN WORKER, ABX Indication : Pneumonia Rocephin + 2018-09 No Notes: Memor ia sterile 2-30 (Same As: l water 10 mL 07:00: Rocephin). Arash 00 Use with 100 mL NS and infuse over 30 min MEDICATION WASTE Product Size: 1000 mg Product Wasted: ___ mg Azithromyci 2018-09 No 500 mg, Mem oria n 2-30 Route: PO, l 07:00: [id number], Arash 00 Dosing Weight 115.6, kg, Start date: 09/15/19 1:00:00 KILN WORKER, Duration: 3 day, Stop date: 09/17/19 1:00:00 KILN WORKER, ABX Indication : Non-PNA Respirator y Tract Infection Ceftriaxone 2018-09 No 1 gm, Memor ia 2-30 Route: l 07:00: IVP, [place] 00 [id number], Dosing Weight 115.6, kg, Start date: 09/15/19 1:00:00 KILN WORKER, Duration: 7 day, Stop date: 09/21/19 1:00:00 KILN WORKER, ABX Indication : Pneumonia Rocephin + 2019- No Notes: Memor ia sterile 2-30 (Same As: l water 10 mL 07:00: Rocephin). Use with 100 mL NS and infuse over 30 min MEDICATION WASTE Product Size: 1000 mg Product Wasted: ___ mg Azithromyci 2018-09 No 500 mg, Mem oria n 2-30 Route: PO, l 07:00: [id number], Arash 00 Dosing Weight 115.6, kg, Start date: 09/15/19 1:00:00 KILN WORKER, Duration: 3 day, Stop date: 09/17/19 1:00:00 KILN WORKER, ABX Indication : Non-PNA Respirator y Tract Infection Ceftriaxone 2018-09 No 1 gm, Memor ia 2-30 Route: l 07:00: IVP, [id number], Dosing Weight 115.6, kg, Start date: 09/15/19 1:00:00 KILN WORKER, Duration: 7 day, Stop date: 09/21/19 1:00:00 KILN WORKER, ABX Indication : Pneumonia Rocephin + 2018- No Notes: Memor ia sterile 2-30 (Same As: l water 10 mL 07:00: Rocephin). Use with 100 mL NS and infuse over 30 min MEDICATION WASTE Product Size: 1000 mg Product Wasted: ___ mg Azithromyci 2018-09 No 500 mg, Mem oria n 2-30 Route: PO, l 07:00: [id number], [place] 00 Dosing Weight 115.6, kg, Start date: 09/15/19 1:00:00 KILN WORKER, Duration: 3 day, Stop date: 09/17/19 1:00:00 KILN WORKER, ABX Indication : Non-PNA Respirator y Tract Infection Ceftriaxone 2018-09 No 1 gm, Memor ia 2-30 Route: l 07:00: IVP, [place] 00 [id number], Dosing Weight 115.6, kg, Start date: 09/15/19 1:00:00 KILN WORKER, Duration: 7 day, Stop date: 09/21/19 1:00:00 KILN WORKER, ABX Indication : Pneumonia Rocephin + 2018-09 [...] 0.9% 2-30 preservati l 06:38: ve free. [place] 00 methylPREDN 2018-09 No Notes: Samson jere ISolone [...] 2-30 Same as l 05:36: Keppra Mix Arash with 100 mL NS, LR or D5W MEDICATION WASTE Product Size: 500 mg Product Wasted: ___ mg Keppra 2018-09 No Notes: Memoria 2-30 Same as l 05:36: Keppra Mix [place] 00 with 100 mL NS, LR or D5W MEDICATION WASTE Product Size: 500 mg Product Wasted: ___ mg Keppra 2018-09 No Notes: Memoria 2-30 Same as l 05:36: Keppra Mix [place] 00 with 100 mL NS, LR or D5W MEDICATION WASTE Product Size: 500 mg Product Wasted: ___ mg Keppra 2018-09 No Notes: Memoria 2-30 Same as l 05:36: Keppra Mix [place] 00 with 100 mL NS, LR or D5W MEDICATION WASTE Product Size: 500 mg Product Wasted: ___ mg Keppra 2018-09 No Notes: Memoria 2-30 Same as l 05:36: Keppra Mix [place] 00 with 100 mL NS, LR or D5W MEDICATION WASTE Product Size: 500 mg Product Wasted: ___ mg Keppra 2018-09 No Notes: Memoria 2-30 Same as l 05:36: Keppra Mix [place] 00 with 100 mL NS, LR or D5W MEDICATION WASTE Product Size: 500 mg Product Wasted: ___ mg Albuterol 2018-09 No Notes: Memori a 0.833 MG/ML 2-30 (Same as: l 05:00: Duoneb) [place] Ipratropium 00 [place] 0.167 MG/ML Inhalant Solution Enoxaparin 2018-09 No Notes: Memor ia 2-30 (Same as: l 05:00: Lovenox) Arash Rocephin 2018-09 No 500 mg, Memori a 2-30 Route: l 05:00: IVPB, Drug [place] 00 form: PDR/INJ, [id number], Dosing Weight 130, kg, Start date: 09/14/19 23:00:00 KILN WORKER, Duration: 7 day, Stop date: 09/21/19 11:00:00 KILN WORKER, ABX Indication : Pneumonia Albuterol 2018-09 No Notes: Memori a 0.833 MG/ML 2-30 (Same as: l 05:00: Duoneb) Arash Ipratropium 00 [place] 0.167 MG/ML Inhalant Solution Enoxaparin 2018-09 No Notes: Memor ia 2-30 (Same as: l 05:00: Lovenox) Arash Rocephin 2018-09 No 500 mg, Memori a 2-30 Route: l 05:00: IVPB, Drug [place] 00 form: PDR/INJ, [id number], Dosing Weight 130, kg, Start date: 09/14/19 23:00:00 KILN WORKER, Duration: 7 day, Stop date: 09/21/19 11:00:00 KILN WORKER, ABX Indication : Pneumonia Albuterol 2018-09 No Notes: Memori a 0.833 MG/ML 2-30 (Same as: l / 05:00: Duoneb) [place] Ipratropium 00 [place] 0.167 MG/ML Inhalant Solution Enoxaparin 2018-09 No Notes: Memor ia 2-30 (Same as: l 05:00: Lovenox) Arash Rocephin 2018-09 No 500 mg, Memori a 2-30 Route: l 05:00: IVPB, Drug Arash 00 form: PDR/INJ, [id number], Dosing Weight 130, kg, Start date: 09/14/19 23:00:00 KILN WORKER, Duration: 7 day, Stop date: 09/21/19 11:00:00 KILN WORKER, ABX Indication : Pneumonia Albuterol 2018-09 No Notes: Memori a 0.833 MG/ML 2-30 (Same as: l / 05:00: Duoneb) [place] Ipratropium 00 [place] 0.167 MG/ML Inhalant Solution Enoxaparin 2018-09 No Notes: Memor ia 2-30 (Same as: l 05:00: Lovenox) [place] Rocephin 2018-09 No 500 mg, Memori a 2-30 Route: l 05:00: IVPB, Drug [place] form: PDR/INJ, [id number], Dosing Weight 130, kg, Start date: 09/14/19 23:00:00 KILN WORKER, Duration: 7 day, Stop date: 09/21/19 11:00:00 KILN WORKER, ABX Indication : Pneumonia Albuterol 2018-09 No Notes: Memori a 0.833 MG/ML 2-30 (Same as: l / 05:00: Duoneb) [place] Ipratropium 00 [place] 0.167 MG/ML Inhalant Solution Enoxaparin 2018-09 No Notes: Memor ia 2-30 (Same as: l 05:00: Lovenox) Arash Rocephin 2018-09 No 500 mg, Memori a 2-30 Route: l 05:00: IVPB, Drug Arash 00 form: PDR/INJ, [id number], Dosing Weight 130, kg, Start date: 09/14/19 23:00:00 KILN WORKER, Duration: 7 day, Stop date: 09/21/19 11:00:00 KILN WORKER, ABX Indication : Pneumonia Albuterol 2018-09 No Notes: Memori a 0.833 MG/ML 2-30 (Same as: l / 05:00: Duoneb) Ipratropium 00 [place] 0.167 MG/ML Inhalant Solution Enoxaparin 2018-09 No Notes: Memor ia 2-30 (Same as: l 05:00: Lovenox) Rocephin 2018-09 No 500 mg, Memori a 2-30 Route: l 05:00: IVPB, Drug form: PDR/INJ, [id number], Dosing Weight 130, kg, Start date: 09/14/19 23:00:00 KILN WORKER, Duration: 7 day, Stop date: 09/21/19 11:00:00 KILN WORKER, ABX Indication : Pneumonia Budesonide 2018-09 No 2 Memoria 0.16 2-30 inhalation l MG/ACTUAT / 04:33: , Route: He rm formoterol 00 INHALATION fumarate , Drug 0.0045 Form: MG/ACTUAT AERO/A, Metered Dosing Dose Weight Inhaler 130, kg, RBID, Start date: 09/14/19 22:33:00 KILN WORKER, Duration: 30 day, Stop date: 10/14/19 20:00:00 KILN WORKER metoprolol 2018-09 No Notes: Memor ia tartrate 2-30 (Same as: l 04:33: Lopressor) Labetalol 2018-09 No 150, 0 Memori a 2-30 l 04:33: Hydralazine 2018-09 No Notes: Samson jere 2-30 (Same as: l 04:33: Apresoline ) Push over 5 minutes Zofran 2018-09 No Notes: Memoria 2-30 (Same as: l 04:33: Zofran) MEDICATION WASTE Product Size: 4 mg Product Wasted: ___ mg Protonix 2018-09 No Notes: For Mem oria 2-30 IV push l 04:33: reconstitu te with 10 ml 0.9% sodium chloride and push over 2 minutes. (Same as: Protonix) Budesonide 2018-09 No 2 Memoria 0.16 2-30 inhalation l MG/ACTUAT / 04:33: , Route: He rmrachna formoterol 00 INHALATION fumarate , Drug 0.0045 Form: MG/ACTUAT AERO/A, Metered Dosing Dose Weight Inhaler 130, kg, RBID, Start date: 09/14/19 22:33:00 KILN WORKER, Duration: 30 day, Stop date: 10/14/19 20:00:00 KILN WORKER metoprolol 2018-09 No Notes: Memor ia tartrate 2-30 (Same as: l 04:33: Lopressor) Labetalol 2018-09 No 150, 0 Memori a 2-30 l 04:33: Arash 00 Hydralazine 2018-09 No Notes: Samson jere 2-30 (Same as: l 04:33: Apresoline ) Push over 5 minutes Zofran 2018-09 No Notes: Memoria 2-30 (Same as: l 04:33: Zofran) MEDICATION WASTE Product Size: 4 mg Product Wasted: ___ mg Protonix 2018-09 No Notes: For Mem oria 2-30 IV push l 04:33: reconstitu te with 10 ml 0.9% sodium chloride and push over 2 minutes. (Same as: Protonix) Budesonide 2018-09 No 2 Memoria 0.16 2-30 inhalation l MG/ACTUAT / 04:33: , Route: Jaret rmrachna formoterol 00 INHALATION fumarate , Drug 0.0045 Form: MG/ACTUAT AERO/A, Metered Dosing Dose Weight Inhaler 130, kg, RBID, Start date: 09/14/19 22:33:00 KILN WORKER, Duration: 30 day, Stop date: 10/14/19 20:00:00 KILN WORKER metoprolol 2018-09 No Notes: Memor ia tartrate 2-30 (Same as: l 04:33: Lopressor) Labetalol 2018-09 No 150, 0 Memori a 2-30 l 04:33: Arash 00 Hydralazine 2018-09 No Notes: Samson jere 2-30 (Same as: l 04:33: Apresoline [place] 00 ) Push over 5 minutes Zofran 2018-09 No Notes: Memoria 2-30 (Same as: l 04:33: Zofran) [place] 00 MEDICATION WASTE Product Size: 4 mg Product Wasted: ___ mg Protonix 2018-09 No Notes: For Mem oria 2-30 IV push l 04:33: reconstitu Arash 00 te with 10 ml 0.9% sodium chloride and push over 2 minutes. (Same as: Protonix) Budesonide 2018-09 No 2 Memoria 0.16 2-30 inhalation l MG/ACTUAT / 04:33: , Route: He ann formoterol 00 INHALATION fumarate , Drug 0.0045 Form: MG/ACTUAT AERO/A, Metered Dosing Dose Weight Inhaler 130, kg, RBID, Start date: 09/14/19 22:33:00 KILN WORKER, Duration: 30 day, Stop date: 10/14/19 20:00:00 KILN WORKER metoprolol 2018-09 No Notes: Memor ia tartrate 2-30 (Same as: l 04:33: Lopressor) Labetalol 2018-09 No 150, 0 Memori a 2-30 l 04:33: Arash 00 Hydralazine 2018-09 No Notes: Samson jere 2-30 (Same as: l 04:33: Apresoline ) Push over 5 minutes Zofran 2018-09 No Notes: Memoria 2-30 (Same as: l 04:33: Zofran) Arash 00 MEDICATION WASTE Product Size: 4 mg Product Wasted: ___ mg Protonix 2018-09 No Notes: For Mem oria 2-30 IV push l 04:33: reconstitu [place] 00 te with 10 ml 0.9% sodium chloride and push over 2 minutes. (Same as: Protonix) Budesonide 2018-09 No 2 Memoria 0.16 2-30 inhalation l MG/ACTUAT / 04:33: , Route: He rmann formoterol 00 INHALATION fumarate , Drug 0.0045 Form: MG/ACTUAT AERO/A, Metered Dosing Dose Weight Inhaler 130, kg, RBID, Start date: 09/14/19 22:33:00 KILN WORKER, Duration: 30 day, Stop date: 10/14/19 20:00:00 KILN WORKER metoprolol 2018-09 No Notes: Memor ia tartrate 2-30 (Same as: l 04:33: Lopressor) Arash 00 Labetalol 2018-09 No 150, 0 Memori a 2-30 l 04:33: Arash 00 Hydralazine 2018-09 No Notes: Samson jere 2-30 (Same as: l 04:33: Apresoline Stigler 00 ) Push over 5 minutes Zofran 2018-09 No Notes: Memoria 2-30 (Same as: l 04:33: Zofran) Stigler 00 MEDICATION WASTE Product Size: 4 mg Product Wasted: ___ mg Protonix 2018-09 No Notes: For Mem oria 2-30 IV push l 04:33: reconstitu Stigler 00 te with 10 ml 0.9% sodium chloride and push over 2 minutes. (Same as: Protonix) Budesonide 2018-09 No 2 Memoria 0.16 2-30 inhalation l MG/ACTUAT / 04:33: , Route: [facility] formoterol 00 INHALATION fumarate , Drug 0.0045 Form: MG/ACTUAT AERO/A, Metered Dosing Dose Weight Inhaler 130, kg, RBID, Start date: 09/14/19 22:33:00 KIL[employer] WORKER, Duration: 30 day, Stop date: 10/14/19 20:00:00 [employer] WORK[employer] metoprolol 2018-09 No Notes: Memor ia tartrate 2-30 (Same as: l 04:33: Lopressor) Labetalol 2018-09 No 150, 0 Memori a 2-30 l 04:33: Arash 00 Hydralazine 2018-09 No Notes: Samson jere 2-30 (Same as: l 04:33: Apresoline Stigler 00 ) Push over 5 minutes Zofran 2018-09 No Notes: Memoria 2-30 (Same as: l 04:33: Zofran) Arash 00 MEDICATION WASTE Product Size: 4 mg Product Wasted: ___ mg Protonix 2018-09 No Notes: For Mem oria 2-30 IV push l 04:33: reconstitu Stigler 00 te with 10 ml 0.9% sodium chloride and push over 2 minutes. (Same as: Protonix) Docusate Yes 1 tab, PO, Mem oria Sodium 50 9-18 BID, PRN l MG / 18:21: Constipati Stigler sennosides, 00 on, 0 HALF-WAY 8.6 MG Refill(s) Oral Tablet gabapentin Yes [...] 1 tab, PO, Memoria azole 800 9-18 [id number], 0 l MG / 18:21: Refill(s) Arash Trimethopri 00 m 160 MG Oral Tablet [Bactrim] Docusate Yes 1 tab, PO, Mem oria Sodium 50 9-18 BID, PRN l MG / 18:21: Constipati Arash sennosides, 00 on, 0 HALF-WAY 8.6 MG Refill(s) Oral Tablet gabapentin Yes [...] 1 tab, PO, Memoria azole 800 9-18 [id number], 0 l MG / 18:21: Refill(s) Arash Trimethopri 00 m 160 MG Oral Tablet [Bactrim] Docusate Yes 1 tab, PO, Mem oria Sodium 50 9-18 BID, PRN l MG / 18:21: Constipati Stigler sennosides, 00 on, 0 HALF-WAY 8.6 MG Refill(s) Oral Tablet gabapentin Yes 100 mg = 1 M emoria 100 MG Oral 18 cap, PO, l Capsule 18:21: Q8H, 0 Arash 00 Refill(s) Levetiracet Yes 500 mg = 1 Memoria am 500 MG -18 tab, PO, l Oral Tablet 18:21: Q12H, 0 Her villegas [Keppra] 00 Refill(s) Lidocaine Yes 1 patch, Samson jere 0.05 MG/MG 06-04 TOP, l Transdermal 18:21: Daily, 0 He rmann Patch 00 Refill(s) polyethylen 0 Yes PO, Daily, Memoria e glycol 18 0 l 3350 oral 18:21: Refill(s) Her villegas powder for 00 reconstitut ion Sulfamethox Yes 1 tab, PO, Memoria azole 800 9-18 [id number], 0 l MG / 18:21: Refill(s) Arash Trimethopri 00 m 160 MG Oral Tablet [Bactrim] Docusate Yes 1 tab, PO, Mem oria Sodium 50 9-18 BID, PRN l MG / 18:21: Constipati Stigler sennosides, 00 on, 0 HALF-WAY 8.6 MG Refill(s) Oral Tablet gabapentin Yes 100 mg = 1 M emoria 100 MG Oral 9-18 cap, PO, l Capsule 18:21: Q8H, 0 Stigler 00 Refill(s) Levetiracet Yes 500 mg = 1 Memoria am 500 MG 9-18 tab, PO, l Oral Tablet 18:21: Q12H, 0 Her villegas [Keppra] 00 Refill(s) Lidocaine Yes 1 patch, Samson jere 0.05 MG/MG 9-18 TOP, l Transdermal 18:21: Daily, 0 He rmann Patch 00 Refill(s) polyethylen 2019-0 Yes PO, Daily, Memoria e glycol 9-18 0 l 3350 oral 18:21: Refill(s) Her villegas powder for 00 reconstitut ion Sulfamethox Yes 1 tab, PO, Memoria azole 800 9-18 [id number], 0 l MG / 18:21: Refill(s) Stigler Trimethopri 00 m 160 MG Oral Tablet [Bactrim] Docusate Yes 1 tab, PO, Mem oria Sodium 50 9-18 BID, PRN l MG / 18:21: Constipati Arash sennosides, 00 on, 0 HALF-WAY 8.6 MG Refill(s) Oral Tablet gabapentin Yes 100 mg = 1 M emoria 100 MG Oral 9-18 cap, PO, l Capsule 18:21: Q8H, 0 Stigler 00 Refill(s) Levetiracet Yes 500 mg = 1 Memoria am 500 MG 9-18 tab, PO, l Oral Tablet 18:21: Q12H, 0 Her villegas [Keppra] 00 Refill(s) Lidocaine Yes 1 patch, Samson jere 0.05 MG/MG 18 TOP, l Transdermal 18:21: Daily, 0 He rmann Patch 00 Refill(s) polyethylen 20190 Yes PO, Daily, Memoria e glycol 9-18 0 l 3350 oral 18:21: Refill(s) Her villegas powder for 00 reconstitut ion Sulfamethox Yes 1 tab, PO, Memoria azole 800 9-18 [id number], 0 l MG / 18:21: Refill(s) Stigler Trimethopri 00 m 160 MG Oral Tablet [Bactrim] Docusate Yes 1 tab, PO, Mem oria Sodium 50 9-18 BID, PRN l MG / 18:21: Constipati Stigler sennosides, 00 on, 0 HALF-WAY 8.6 MG Refill(s) Oral Tablet gabapentin Yes 100 mg = 1 M emoria 100 MG Oral 9-18 cap, PO, l Capsule 18:21: Q8H, 0 Stigler 00 Refill(s) Levetiracet Yes 500 mg = 1 Memoria am 500 MG 9-18 tab, PO, l Oral Tablet 18:21: Q12H, 0 Her villegas [Keppra] 00 Refill(s) Lidocaine Yes 1 patch, Samson jere 0.05 MG/MG 18 TOP, l Transdermal 18:21: Daily, 0 He rmann Patch 00 Refill(s) polyethylen Yes PO, Daily, Memoria e glycol 9-18 0 l 3350 oral 18:21: Refill(s) Her villegas powder for 00 reconstitut ion Sulfamethox Yes 1 tab, PO, Memoria azole 800 9-18 [id number], 0 l MG / 18:21: Refill(s) Stigler Trimethopri 00 m 160 MG Oral Tablet [Bactrim] remove No Notes: Memoria patch 9-16 Remove l 02:00: patch 12 Arash 00 hours after applicatio n each day. remove No Notes: Memoria patch 9-16 Remove l 02:00: patch 12 Arash 00 hours after applicatio n each day. remove No Notes: Memoria patch 9-16 Remove l 02:00: patch 12 Stigler 00 hours after applicatio n each day. remove No Notes: Memoria patch 9-16 Remove l 02:00: patch 12 Stigler 00 hours after applicatio n each day. remove No Notes: Memoria patch 9-16 Remove l 02:00: patch 12 Stigler 00 hours after applicatio n each day. remove No Notes: Memoria patch 9-16 Remove l 02:00: patch 12 Stigler 00 hours after applicatio n each day. Docusate No Notes: Memoria Sodium 50 9-15 (Same as l MG / 22:00: Senokot-S) Arash sennosides, 00 Equiv. to HALF-WAY 8.6 MG [facility] Oral Tablet e. Docusate No Notes: Memoria Sodium 50 9-15 (Same as l MG / 22:00: Senokot-S) Arash sennosides, 00 Equiv. to HALF-WAY 8.6 MG [facility] Oral Tablet e. Docusate No Notes: Memoria Sodium 50 9-15 (Same as l MG / 22:00: Senokot-S) Stigler sennosides, 00 Equiv. to HALF-WAY 8.6 MG [facility] Oral Tablet e. Docusate No Notes: Memoria Sodium 50 9-15 (Same as l MG / 22:00: Senokot-S) Stigler sennosides, 00 Equiv. to HALF-WAY 8.6 MG [facility] Oral Tablet e. Docusate No Notes: Memoria Sodium 50 9-15 (Same as l MG / 22:00: Senokot-S) Stigler sennosides, 00 Equiv. to HALF-WAY 8.6 MG [facility] Oral Tablet e. Docusate No Notes: Memoria Sodium 50 9-15 (Same as l MG / 22:00: Senokot-S) Stigler sennosides, 00 Equiv. to HALF-WAY 8.6 MG [facility] Oral Tablet e. Lidocaine [...] before applicatio n of new patch" Lidocaine 2018-0 No Notes: Memori a 0.05 MG/MG 9-15 Apply only l Transdermal 14:00: once for He rmann Patch 00 up to 12 hours in a 24-hour period (12 hours on and 12 hours off). (Same as: Lidoderm) "Remove old patch before applicatio n of new patch" Lidocaine 2018-0 No Notes: Memori a 0.05 MG/MG 9-15 Apply only l Transdermal 14:00: once for He rmann Patch 00 up to 12 hours in a 24-hour period (12 hours on and 12 hours off). (Same as: Lidoderm) "Remove old patch before applicatio n of new patch" Symbicort 2019-0 No 2 puff, Memor ia 160/4.5 05-30 Route: l inhalation 22:00: INHALATION H ermann aerosol 00 , Drug with Form: adapter AERO/A, Dosing Weight 130, kg, BID, Start date: 05/30/19 17:00:00 CDT, Duration: 30 day, Stop date: 06/29/19 9:00:00 CDT Symbicort 2019-0 No 2 puff, Memor ia 160/4.5 05-30 Route: l inhalation 22:00: INHALATION H ermann aerosol 00 , Drug with Form: adapter AERO/A, Dosing Weight 130, kg, BID, Start date: 05/30/19 17:00:00 CDT, Duration: 30 day, Stop date: 06/29/19 9:00:00 CDT Symbicort 2019-0 No 2 puff, Memor ia 160/4.5 05-30 Route: l inhalation 22:00: INHALATION H ermann aerosol 00 , Drug with Form: adapter AERO/A, Dosing Weight 130, kg, BID, Start date: 05/30/19 17:00:00 CDT, Duration: 30 day, Stop date: 06/29/19 9:00:00 CDT Symbicort 2019-0 No 2 puff, Memor ia 160/4.5 05-30 Route: l inhalation 22:00: INHALATION H ermann aerosol 00 , Drug with Form: adapter AERO/A, Dosing Weight 130, kg, BID, Start date: 05/30/19 17:00:00 CDT, Duration: 30 day, Stop date: 06/29/19 9:00:00 CDT Symbicort 2019-0 No 2 puff, Memor ia 160/4.5 05-30 Route: l inhalation 22:00: INHALATION H ermann aerosol 00 , Drug with Form: adapter AERO/A, Dosing Weight 130, kg, BID, Start date: 05/30/19 17:00:00 CDT, Duration: 30 day, Stop date: 06/29/19 9:00:00 CDT Symbicort 2018-0 No 2 puff, Memor ia 160/4.5 05-30 Route: l inhalation 22:00: INHALATION H ermann aerosol 00 , Drug with Form: adapter AERO/A, Dosing Weight 130, kg, BID, Start date: 05/30/19 17:00:00 CDT, Duration: 30 day, Stop date: 06/29/19 9:00:00 CDT albuterol 2018-0 No Notes: SEE Me moria 9-13 RT l 20:00: DOCUMENTAT Stigler 00 ION (Same as: Proventil) albuterol No Notes: SEE Me moria 9-13 RT l 20:00: DOCUMENTAT Arash 00 ION (Same as: Proventil) albuterol No Notes: SEE Me moria 9-13 RT l 20:00: DOCUMENTAT Arash 00 ION (Same as: Proventil) albuterol No Notes: SEE Me moria 9-13 RT l 20:00: DOCUMENTAT Stigler 00 ION (Same as: Proventil) albuterol No Notes: SEE Me moria 9-13 RT l 20:00: DOCUMENTAT Arash 00 ION (Same as: Proventil) albuterol No Notes: SEE Me moria 9-13 RT l 20:00: DOCUMENTAT Stigler 00 ION (Same as: Proventil) Pulmicort No Notes: Memori a Respules 05-30 (Same As: l 19:36: Pulmicort) Arash 00 Pulmicort No Notes: Memori a Respules 05-30 (Same As: l 19:36: Pulmicort) Arash 00 Pulmicort No Notes: Memori a Respules 9-13 (Same As: l 19:36: Pulmicort) Pulmicort No Notes: Memori a Respules 9-13 (Same As: l 19:36: Pulmicort) Pulmicort No Notes: Memori a Respules 9-13 (Same As: l 19:36: Pulmicort) Pulmicort No Notes: Memori a Respules 9-13 (Same As: l 19:36: Pulmicort) Pravachol No Notes: Memori a 9-13 (Same as: l 02:00: Pravachol) Pravachol No Notes: Memori a 9-13 (Same as: l 02:00: Pravachol) Pravachol No Notes: Memori a 9-13 (Same as: l 02:00: Pravachol) Pravachol No Notes: Memori a 9-13 (Same as: l 02:00: Pravachol) Pravachol No Notes: Memori a 9-13 (Same as: l 02:00: Pravachol) Pravachol No Notes: Memori a 9-13 (Same as: l 02:00: Pravachol) Sulfamethox No Notes: One Memoria azole 800 9-12 DS tablet l MG / 23:00: = Trimethopri 00 trimethopr m 160 MG im [...] DS tablet l MG / 23:00: = Stigler Trimethopri 00 trimethopr m 160 MG im 160mg + Oral Tablet sulfametho [Bactrim] xazole 800 mg Dose based on trimethopr im component On empty stomach with a glass of water. (Same As: Bactrim DS, Septra DS) Morphine No Notes: Memoria 9-12 (Same l 21:01: as:MORPhin Stigler 00 e Sulfate) Morphine No Notes: Memoria 9-12 (Same l 21:01: as:MORPhin Stigler 00 e Sulfate) Morphine No Notes: Memoria 9-12 (Same l 21:01: as:MORPhin Arash 00 e Sulfate) Morphine No Notes: Memoria 9-12 (Same l 21:01: as:MORPhin Stigler 00 e Sulfate) Morphine No Notes: Memoria 9-12 (Same l 21:01: as:MORPhin Stigler 00 e Sulfate) Morphine No Notes: Memoria 9-12 (Same l 21:01: as:MORPhin Arash 00 e Sulfate) Detrol No Notes: Memoria 9-12 (Same As: [...] 9-12 (Same l Oral Tablet 14:00: as:Keppra) Stigler [Keppra] Losartan No Notes: Memoria 9-12 (Same [...] 9-12 (Same l Oral Tablet 14:00: as:Keppra) Stigler [Keppra] Losartan No Notes: Memoria 9-12 (Same as: l 14:00: Cozaar) Detrol No Notes: Memoria 9-12 (Same As: l 14:00: Detrol) metoprolol No Notes: Memor ia tartrate 9-12 (Same as: l 14:00: Lopressor) Miralax No 17 gm, 1 Memori a 9-12 pkt, l 14:00: Route: PO, Arash 00 Drug form: PWDR, Daily, Dosing Weight 130, kg, Start date: 05/29/19 9:00:00 CDT, Duration: 30 day, Stop date: 06/27/19 9:00:00 CDT, 0 Levetiracet No Notes: Samson jere am 500 MG 9-12 (Same l Oral Tablet 14:00: as:Keppra) [Keppra] Losartan No Notes: Memoria 9-12 (Same [...] 9-12 (Same l Oral Tablet 14:00: as:Keppra) [Keppra] Losartan No Notes: Memoria 9-12 (Same as: l 14:00: Cozaar) Levetiracet No Notes: Samson jere am 500 MG 9-12 (Same l Oral Tablet 14:00: as:Keppra) [Keppra] Losartan No Notes: Memoria 9-12 (Same [...] No Notes: Samson jere am 500 MG 05-29 (Same l Oral Tablet 14:00: as:Keppra) [Keppra] Losartan No Notes: Memoria 9-12 (Same as: l 14:00: Cozaar) Detrol No Notes: Memoria 9-12 (Same As: l 14:00: Detrol) metoprolol No Notes: Memor ia tartrate 12 (Same as: l 14:00: Lopressor) Miralax No 17 gm, 1 Memori a 12 pkt, l 14:00: Route: PO, Drug form: PWDR, Daily, Dosing Weight 130, kg, Start date: 05/29/19 9:00:00 CDT, Duration: 30 day, Stop date: 06/27/19 9:00:00 CDT, 0 Docusate No Notes: Memoria Sodium 50 9-12 (Same as l MG / 09:37: Senokot-S) Arash quiroznosides, 00 Equiv. to HALF-WAY 8.6 MG [facility] Oral Tablet e. Docusate No Notes: Memoria Sodium 50 9-12 (Same as l MG / 09:37: Senokot-S) Arash sennosides, 00 Equiv. to HALF-WAY 8.6 MG [facility] Oral Tablet e. Docusate No Notes: Memoria Sodium 50 9-12 (Same as l MG / 09:37: Senokot-S) Arash sennosides, 00 Equiv. to HALF-WAY 8.6 MG [facility] Oral Tablet e. Docusate No Notes: Memoria Sodium 50 9-12 (Same as l MG / 09:37: Senokot-S) Stigler sennosides, 00 Equiv. to HALF-WAY 8.6 MG [facility] Oral Tablet e. Docusate 2019-0 No Notes: Memoria Sodium 50 9-12 (Same as l MG / 09:37: Senokot-S) Stigler sennosides, 00 Equiv. to HALF-WAY 8.6 MG [facility] Oral Tablet e. Docusate 2019-0 No Notes: Memoria Sodium 50 9-12 (Same as l MG / 09:37: Senokot-S) Arash sennosides, 00 Equiv. to HALF-WAY 8.6 MG [facility] Oral Tablet e. Tramadol [...] jere 9-11 tab, l 23:22: Route: PO, Arash 00 Drug form: TAB, Q6H, Dosing Weight 130, kg, PRN Pain Score 4-6, Start date: 05/28/19 18:22:00 CDT, Duration: 30 day, Stop date: 06/27/19 18:21:00 CDT, 0 Tramadol 2019-0 No 100 mg, 2 Samson jere 9-11 tab, l 23:22: Route: PO, Arash 00 Drug form: TAB, Q6H, Dosing Weight 130, [...] 9-11 mL, Route: l 20:00: NEB, Drug Arash form: ROCAEL MUSA, Start date: 05/28/19 15:00:00 CDT, Duration: 30 day, Stop date: 06/27/19 11:00:00 CDT, 0 albuterol 2019-0 No 2.49 mg, 3 Me moria 9-11 mL, Route: l 20:00: NEB, Drug Stigler form: ROCAEL MUSA, Start date: 05/28/19 15:00:00 CDT, Duration: 30 day, Stop date: 06/27/19 11:00:00 CDT, 0 albuterol 2019-0 No 2.49 mg, 3 Me moria 9-11 mL, Route: l 20:00: NEB, Drug Stigler form: ROCAEL MUSA, Start date: 05/28/19 15:00:00 CDT, Duration: 30 day, Stop date: 06/27/19 11:00:00 CDT, 0 albuterol 2019-0 No 2.49 mg, 3 Me moria 9-11 mL, Route: l 20:00: NEB, Drug Stigler 00 form: SOLN, RQID, Start date: 05/28/19 15:00:00 CDT, Duration: 30 day, Stop date: 06/27/19 11:00:00 CDT, 0 albuterol 2019-0 No 2.49 mg, 3 Me moria 9-11 mL, Route: l 20:00: NEB, Drug Arash 00 form: SOLN, RQID, Start date: 05/28/19 15:00:00 CDT, Duration: 30 day, Stop date: 06/27/19 11:00:00 CDT, 0 albuterol 2019-0 No 2.49 mg, 3 Me moria 9-11 mL, Route: l 20:00: NEB, Drug Arash 00 form: SOLN, RQID, Start date: 05/28/19 15:00:00 CDT, Duration: 30 day, Stop date: 06/27/19 11:00:00 CDT, 0 Tylenol No Notes: Max Samson jere 9-11 acetaminop l 19:33: hen 4000 Stigler 00 mg/day (4 gm/day). (Same as: Tylenol Extra Strength) Tylenol No Notes: Max Samson jere 9-11 acetaminop l 19:33: hen 4000 Stigler 00 mg/day (4 gm/day). (Same as: Tylenol Extra Strength) Tylenol No Notes: Max Samson jere 9-11 acetaminop l 19:33: hen 4000 Arash 00 mg/day (4 gm/day). (Same as: Tylenol Extra Strength) Tylenol No Notes: Max Samson jere 9-11 acetaminop l 19:33: hen 4000 Arash 00 mg/day (4 gm/day). (Same as: Tylenol Extra Strength) Tylenol 0 No Notes: Max Samson jere 9-11 acetaminop l 19:33: hen 4000 Arash 00 mg/day (4 gm/day). (Same as: Tylenol Extra Strength) Tylenol No Notes: Max Samson jere 9-11 acetaminop l 19:33: hen 4000 Arash 00 mg/day (4 gm/day). (Same as: Tylenol Extra Strength) Pulmicort 2018-0 No 0.5 mg, 2 Mem oria Respules 9-11 mL, Route: l 18:52: NEB, Drug Arash 00 form: SUSP, RBID, Start date: 05/28/19 13:52:00 CDT, Duration: 30 day, Stop date: 06/27/19 8:00:00 CDT, 0 Pulmicort 2019-0 No 0.5 mg, 2 Mem oria Respules 9-11 mL, Route: l 18:52: NEB, Drug Arash 00 form: SUSP, RBID, Start date: 05/28/19 13:52:00 [...] 9-11 mL, Route: l 18:52: NEB, Drug Stigler 00 form: SUSP, RBID, Start date: 05/28/19 13:52:00 CDT, Duration: 30 day, Stop date: 06/27/19 8:00:00 CDT, 0 Amoxicillin 2019-0 No 1 tab, Samson jere 875 MG / 05-28 Route: PO, l Clavulanate 18:41: Drug Form: Stigler 125 MG Oral 00 TAB, Tablet Dosing [Augmentin Weight 875-mg] 130, kg, [id number], NOW, Start date: 05/28/19 13:41:00 CDT, Duration: 30 day, Stop date: 06/27/19 2:00:00 CDT, 0 Amoxicillin 2019-0 No 1 tab, Samson jere 875 MG 05-28 Route: PO, l Clavulanate 18:41: Drug Form: Stigler 125 MG Oral 00 TAB, Tablet Dosing [Augmentin Weight 875-mg] 130, kg, [id number], NOW, Start date: 05/28/19 13:41:00 CDT, Duration: 30 day, Stop date: 06/27/19 2:00:00 CDT, 0 Amoxicillin 2019-0 No 1 tab, Samson jere 875 MG / 05-28 Route: PO, l Clavulanate 18:41: Drug Form: Arash 125 MG Oral 00 TAB, Tablet Dosing [Augmentin Weight 875-mg] 130, kg, [id number], NOW, Start date: 05/28/19 13:41:00 CDT, Duration: 30 day, Stop date: 06/27/19 2:00:00 CDT, 0 Amoxicillin 2019-0 No 1 tab, Samson jere 875 MG 05-28 Route: PO, l Clavulanate 18:41: Drug Form: Arash 125 MG Oral 00 TAB, Tablet Dosing [Augmentin Weight 875-mg] 130, kg, [id number], NOW, Start date: 05/28/19 13:41:00 CDT, Duration: 30 day, Stop date: 06/27/19 2:00:00 CDT, 0 Amoxicillin 2019-0 No 1 tab, Samson jere 875 MG 05-28 Route: PO, l Clavulanate 18:41: Drug Form: Arash 125 MG Oral 00 TAB, Tablet Dosing [Augmentin Weight 875-mg] 130, kg, [id number], NOW, Start date: 05/28/19 13:41:00 CDT, Duration: 30 day, Stop date: 06/27/19 2:00:00 CDT, 0 Amoxicillin 2019-0 No 1 tab, Samson jere 875 MG / - Route: PO, l Clavulanate 18:41: Drug Form: Arash 125 MG Oral 00 TAB, Tablet Dosing [Augmentin Weight 875-mg] 130, kg, [id number], NOW, Start date: 05/28/19 13:41:00 CDT, Duration: [...] ia 9-11 (Same as: l 05:00: Neurontin) Stigler Tylenol No Notes: Max Samson jere 9-11 acetaminop l 05:00: hen 4000 Arash 00 mg/day (4 gm/day). (Same as: Tylenol Extra Strength) gabapentin No Notes: Memor ia 9-11 (Same as: l 05:00: Neurontin) Stigler Tylenol No Notes: Max Samson jere 9-11 acetaminop l 05:00: hen 4000 Stigler 00 mg/day (4 gm/day). (Same as: Tylenol Extra Strength) gabapentin No Notes: Memor ia 9-11 (Same as: l 05:00: Neurontin) Stigler 00 Tylenol No Notes: Max Samson jere 9-11 acetaminop l 05:00: hen 4000 Arash 00 mg/day (4 gm/day). (Same as: Tylenol Extra Strength) gabapentin No Notes: Memor ia 9-11 (Same as: l 05:00: Neurontin) Stigler Tylenol No Notes: Max Samson jere 9-11 acetaminop l 05:00: hen 4000 Arash 00 mg/day (4 gm/day). (Same as: Tylenol Extra Strength) gabapentin No Notes: Memor ia 9-11 (Same as: l 05:00: Neurontin) Stigler Tylenol No Notes: Max Samson jere 9-11 acetaminop l 05:00: hen 4000 Arash 00 mg/day (4 gm/day). (Same as: Tylenol Extra Strength) gabapentin No Notes: Memor ia 9-11 (Same as: l 05:00: Neurontin) Stigler Naproxen No Notes: Memoria 9-11 (Same as: l 02:00: Naprosyn) Stigler Take with food. Naproxen No Notes: Memoria 9-11 (Same as: l 02:00: Naprosyn) Arash Take with food. Naproxen 2019-0 No Notes: Memoria 9-11 (Same as: l 02:00: Naprosyn) Stigler Take with food. Naproxen 2018-0 No Notes: Memoria 9-11 (Same as: l 02:00: Naprosyn) Stigler Take with food. Naproxen 2018-0 No Notes: Memoria 9-11 (Same as: l 02:00: Naprosyn) Stigler Take with food. Naproxen 2018-0 No Notes: Memoria 9-11 (Same as: l 02:00: Naprosyn) Arash Take with food. Hydralazine 2019-0 No 10 mg, Samson jere 9-10 Route: l 21:32: IVP, ONCE, Dosing Weight 130, kg, Start date: 05/27/19 16:32:00 CDT, Stop date: 05/27/19 16:32:00 CDT Hydralazine 2018-0 No 10 mg, Samson jere 9-10 Route: l 21:32: IVP, ONCE, Dosing Weight 130, kg, Start date: 05/27/19 16:32:00 CDT, Stop date: 05/27/19 16:32:00 CDT Hydralazine 2018-0 No 10 mg, Samson jere 9-10 Route: l 21:32: IVP, ONCE, Dosing Weight 130, kg, Start date: 05/27/19 16:32:00 CDT, Stop date: 05/27/19 16:32:00 CDT Hydralazine 2018-0 No 10 mg, Samson jere 9-10 Route: l 21:32: IVP, ONCE, Dosing Weight 130, kg, Start date: 05/27/19 16:32:00 CDT, Stop date: 05/27/19 16:32:00 CDT Hydralazine 2018-0 No 10 mg, Samson jere 9-10 Route: l 21:32: IVP, ONCE, Dosing Weight 130, kg, Start date: 05/27/19 16:32:00 CDT, Stop date: 05/27/19 16:32:00 CDT Hydralazine 2019-0 No 10 mg, Samson jere 9-10 Route: l 21:32: IVP, ONCE, Arash 00 Dosing Weight 130, kg, Start date: 05/27/19 16:32:00 CDT, Stop date: 05/27/19 16:32:00 CDT Losartan No Notes: Memoria 9-10 (Same as: l 21:00: Cozaar) Losartan No Notes: Memoria 9-10 (Same as: l 21:00: Cozaar) Losartan No Notes: Memoria 9-10 (Same as: l 21:00: Cozaar) Losartan No Notes: Memoria 9-10 (Same as: l 21:00: Cozaar) Losartan No Notes: Memoria 9-10 (Same as: l 21:00: Cozaar) Losartan No Notes: Memoria 9-10 (Same as: l 21:00: Cozaar) Dexmedetomi No Notes: Use Memoria dine 9-10 the l 20:06: following Stigler 00 cdm for [id number]. Dexmedetomi 0 No Notes: Use Memoria dine 9-10 the l 20:06: following Stigler 00 cdm for [id number]. Dexmedetomi No Notes: Use Memoria dine 9-10 the l 20:06: following Arash 00 cdm for [id number]. Dexmedetomi 0 No Notes: Use Memoria dine 9-10 the l 20:06: following Arash 00 cdm for [id number]. Dexmedetomi 0 No Notes: Use Memoria dine 9-10 the l 20:06: following Arash 00 cdm for [id number]. Dexmedetomi 0 No Notes: Use Memoria dine 9-10 the l 20:06: following Arash 00 cdm for [id number]. cefepime 2018- No Notes: Memoria 9-10 (Same As: l 14:00: Maxipime) MEDICATION WASTE Product Size: 1000 mg Product Wasted: _0__ mg Famotidine No Notes: Memor ia 9-10 (Same as: l 14:00: Pepcid) Stigler 00 Can be dilute in 5-10cc NS IVP: Slow IV push over at least 2 minutes. Saline No Notes: Memoria Flush 0.9% 9-10 (Same as: l 14:00: BD Stigler 00 Posiflush) chlorhexidi No Notes: Samson jere ne 9-10 (Same As: l gluconate 14:00: Peridex) Herm rachna 1.2 MG/ML 00 Mouthwash Symbicort No Notes: Memori a 160/4.5 9-10 (Same as: l inhalation 14:00: Symbicort) H ermann aerosol 00 WASTE: with Aerosol - adapter Return to Pharmacy cefepime No Notes: Memoria 9-10 (Same As: l 14:00: Maxipime) Stigler 00 MEDICATION WASTE Product Size: 1000 mg Product Wasted: _0__ mg Famotidine No Notes: Memor ia 9-10 (Same as: l 14:00: Pepcid) Arash 00 Can be dilute in 5-10cc NS IVP: Slow IV push over at least 2 minutes. Saline No Notes: Memoria Flush 0.9% 9-10 (Same as: l 14:00: BD Arash 00 Posiflush) chlorhexidi No Notes: Samson jere ne 9-10 (Same As: l gluconate 14:00: Peridex) Herm rachna 1.2 MG/ML 00 Mouthwash Symbicort No Notes: Memori a 160/4.5 9-10 (Same as: l inhalation 14:00: Symbicort) H ermann aerosol 00 WASTE: with Aerosol - adapter Return to Pharmacy cefepime No Notes: Memoria 9-10 (Same As: l 14:00: Maxipime) Stigler 00 MEDICATION WASTE Product Size: 1000 mg Product Wasted: _0__ mg Famotidine No Notes: Memor ia 9-10 (Same as: l 14:00: Pepcid) Stigler 00 Can be dilute in 5-10cc NS IVP: Slow IV push over at least 2 minutes. Saline No Notes: Memoria Flush 0.9% 9-10 (Same as: l 14:00: BD Arash 00 Posiflush) chlorhexidi No Notes: Samson jere ne 9-10 (Same As: l gluconate 14:00: Peridex) Herm rachna 1.2 MG/ML 00 Mouthwash Symbicort No Notes: Memori a 160/4.5 9-10 (Same as: l inhalation 14:00: Symbicort) H ermann aerosol 00 WASTE: with Aerosol - adapter Return to Pharmacy cefepime No Notes: Memoria 9-10 (Same As: l 14:00: Maxipime) Stigler 00 MEDICATION WASTE Product Size: 1000 mg Product Wasted: _0__ mg Famotidine No Notes: Memor ia 9-10 (Same as: l 14:00: Pepcid) Stigler 00 Can be dilute in 5-10cc NS IVP: Slow IV push over at least 2 minutes. Saline No Notes: Memoria Flush 0.9% 9-10 (Same as: l 14:00: BD Arash 00 Posiflush) chlorhexidi No Notes: Samson jere [...] 0.9% 9-10 (Same as: l 14:00: BD Stigler 00 Posiflush) chlorhexidi No Notes: Samson jere ne 9-10 (Same As: l gluconate 14:00: Peridex) Herm rachna 1.2 MG/ML 00 Mouthwash Symbicort No Notes: Memori a 160/4.5 9-10 (Same as: l inhalation 14:00: Symbicort) H ermann aerosol 00 WASTE: with Aerosol - adapter Return to Pharmacy cefepime No Notes: Memoria 9-10 (Same As: l 14:00: Maxipime) Stigler 00 MEDICATION WASTE Product Size: 1000 mg Product Wasted: _0__ mg Famotidine No Notes: Memor ia -10 (Same as: l 14:00: Pepcid) Arash Can be dilute in 5-10cc NS IVP: Slow IV push over at least 2 minutes. Saline No Notes: Memoria Flush 0.9% - (Same as: l 14:00: BD Stigler 00 Posiflush) chlorhexidi No Notes: Samson jere ne -10 (Same As: l gluconate 14:00: Peridex) Herm rachna 1.2 MG/ML 00 Mouthwash Symbicort No Notes: Memori a 160/4.5 9-10 (Same as: l inhalation 14:00: Symbicort) H ermann aerosol 00 WASTE: with Aerosol - adapter Return to Pharmacy cefepime No Notes: Memoria 9-10 (Same As: l 13:00: Maxipime) Stigler 00 MEDICATION WASTE Product Size: 1000 mg Product Wasted: 0 mg cefepime No Notes: Memoria 9-10 (Same As: l 13:00: Maxipime) Stigler 00 MEDICATION WASTE Product Size: 1000 mg [...] Memoria 9-10 (Same As: l 13:00: Maxipime) Stigler 00 MEDICATION WASTE Product Size: 1000 mg Product Wasted: 0 mg cefepime No Notes: Memoria 9-10 (Same As: l 13:00: Maxipime) Arash MEDICATION WASTE Product Size: 1000 mg Product [...] Memoria 9-10 Take 1 l 11:30: hour Stigler 00 before or 2 hours after meal; Enteral feeds may interefere with the absorption of this medication . (Same as:Levothr oid, Synthroid) Levoxyl No Notes: Memoria 9-10 Take 1 l 11:30: hour Stigler 00 before or 2 hours after meal; [...] (Same as l MG / 11:04: Senokot-S) Stigler sennosides, 00 Equiv. to HALF-WAY 8.6 MG [employer] Oral Tablet e. Docusate No Notes: Memoria Sodium 50 9-10 (Same as l MG / 11:04: Senokot-S) Arash sennosides, 00 Equiv. to HALF-WAY 8.6 MG [employer] Oral Tablet e. Docusate No Notes: Memoria Sodium 50 9-10 (Same as l MG / 11:04: Senokot-S) Stigler sennosides, 00 Equiv. to HALF-WAY 8.6 MG [employer] Oral Tablet e. Docusate No Notes: Memoria Sodium 50 9-10 (Same as l MG / 11:04: Senokot-S) Stigler sennosides, 00 Equiv. to HALF-WAY 8.6 MG [employer] Oral Tablet e. Docusate No Notes: Memoria Sodium 50 9-10 (Same as l MG / 11:04: Senokot-S) Stigler sennosides, 00 Equiv. to HALF-WAY 8.6 MG [employer] Oral Tablet e. Docusate No Notes: Memoria Sodium 50 9-10 (Same as l MG / 11:04: Senokot-S) Arash sennosides, 00 Equiv. to HALF-WAY 8.6 MG [employer] Oral Tablet e. ocular No Notes: Memoria lubricant 9-10 (Same as: l 11:00: Lacri-Lube Stigler 00 , Puralube, Duratears Naturale, Artificial Tears, and Tears Again ) ocular 2019 No Notes: Memoria lubricant 9-10 (Same as: l 11:00: Lacri-Lube Arash 00 , Puralube, Duratears Naturale, Artificial Tears, and Tears Again ) ocular 2019 No Notes: Memoria lubricant 9-10 (Same as: l 11:00: Lacri-Lube Stigler 00 , Puralube, Duratears Naturale, Artificial Tears, and Tears Again ) ocular 2019 No Notes: Memoria lubricant 9-10 (Same as: l 11:00: Lacri-Lube Arash 00 , Puralube, Duratears Naturale, Artificial Tears, and Tears Again ) ocular 2019 No Notes: Memoria lubricant 9-10 (Same as: l 11:00: Lacri-Lube Arash 00 , Puralube, Duratears Naturale, Artificial Tears, and Tears Again ) ocular No Notes: Memoria lubricant 9-10 (Same as: l 11:00: Lacri-Lube Arash 00 , Puralube, Duratears Naturale, Artificial Tears, and Tears Again ) Levothyroxi Yes 100 Memori a ne Sodium 9-10 microgram l 0.1 MG Oral 09:03: = 1 tab, He rmann Tablet 00 PO, Daily, [Levoxyl] # 30 tab, 0 Refill(s) Levothyroxi 2019 Yes 100 Memori a ne Sodium 9-10 [...] [Lasix] 00 30 tab, 0 Refill(s) Levoxyl No PO, Daily, Samson jere 9-10 0 l 07:28: Refill(s) Arash 00 losartan 50 Yes 50 mg = 1 M emoria mg oral 9-10 tab, PO, l tablet 07:28: Daily, # Arash 00 30 tab, 0 Refill(s) metoprolol Yes 50 mg = 1 Me moria [...] PO, l Tablet 07:28: Daily, # Arash 00 30 tab, 0 Refill(s) 200 ACTUAT 0 Yes 2 puff, Samson jere Albuterol 9-10 INHALER, l 0.09 07:28: Q6H, PRN Stigler MG/ACTUAT 00 for Metered wheezing, Dose # 8.5 gm, Inhaler 0 [ProAir Refill(s) HFA] Amlodipine No PO, Daily, M emoria 9-10 0 l 07:28: Refill(s) Arash 00 Furosemide No 40 mg = 1 Me moria 40 MG Oral 9-10 tab, PO, l Tablet 07:28: Daily, # Stigler [Lasix] 00 30 tab, 0 Refill(s) Levoxyl No PO, Daily, Samson jere 9-10 0 l 07:28: Refill(s) Stigler 00 losartan 50 Yes 50 mg = 1 M emoria mg oral 9-10 tab, PO, l tablet 07:28: Daily, # Stigler 00 30 tab, 0 Refill(s) metoprolol Yes 50 mg = 1 Me moria [...] PO, l Tablet 07:28: Daily, # Arash 00 30 tab, 0 Refill(s) 200 ACTUAT 2019-0 Yes 2 puff, Samson jere Albuterol 9-10 INHALER, l 0.09 07:28: Q6H, PRN Stigler MG/ACTUAT 00 for Metered wheezing, Dose # 8.5 gm, Inhaler 0 [ProAir Refill(s) HFA] Amlodipine 2018-0 No PO, Daily, M emoria 9-10 0 l 07:28: Refill(s) Stigler 00 Furosemide 0 No 40 mg = 1 Me moria 40 MG Oral 9-10 tab, PO, l Tablet 07:28: Daily, # Stigler [Lasix] 00 30 tab, 0 Refill(s) Levoxyl 2018-0 No PO, Daily, Samson jere 9-10 0 l 07:28: Refill(s) Stigler 00 losartan 50 0 Yes 50 mg = 1 M emoria mg oral 9-10 tab, PO, l tablet 07:28: Daily, # Arash 00 30 tab, 0 Refill(s) metoprolol Yes 50 mg = 1 Me moria [...] 00 gm, 0 with Refill(s) adapter tolterodine 0 Yes 2 mg = 1 Me moria tartrate 2 9-10 tab, PO, l MG Oral 07:28: BID, # 60 Jessy nn Tablet 00 tab, 0 [Detrol] Refill(s) Loratadine 2018-0 Yes 10 mg = 1 Me moria 10 MG Oral 9-10 tab, PO, l Tablet 07:28: Daily, # Stigler 00 30 tab, 0 Refill(s) 200 ACTUAT 2018-0 Yes 2 puff, Samson jere Albuterol 9-10 INHALER, l 0.09 07:28: Q6H, PRN Arash MG/ACTUAT 00 for Metered wheezing, Dose # 8.5 gm, Inhaler 0 [ProAir Refill(s) HFA] Amlodipine 0 No PO, Daily, M emoria 9-10 0 l 07:28: Refill(s) Arash 00 Furosemide No 40 mg = 1 Me moria 40 MG Oral 9-10 tab, PO, l Tablet 07:28: Daily, # Stig[place] [Lasix] 00 30 tab, 0 Refill(s) Levoxyl 0 No PO, Daily, Samson jere 9-10 0 l 07:28: Refill(s) Arash 00 losartan 50 Yes 50 mg = 1 M emoria mg oral 9-10 tab, PO, l tablet 07:28: Daily, # Arash 00 30 tab, 0 Refill(s) metoprolol Yes 50 mg = 1 Me moria tartrate 50 9-10 tab, PO, l mg oral 07:28: BID, # 60 Jessy nn tablet 00 tab, 0 Refill(s) Pravastatin Yes 20 mg = 1 M emoria Sodium 20 9-10 tab, PO, l MG Oral 07:28: Bedtime, # Herm rachna Tablet 00 30 tab, 0 [Pravachol] Refill(s) Symbicort 0 Yes 2 puff, Memor ia 160/4.5 9-10 INHALATION l inhalation 07:28: , BID, # 6 H ermann aerosol 00 gm, 0 with Refill(s) adapter tolterodine Yes 2 mg = 1 Me moria tartrate 2 9-10 tab, PO, l MG Oral 07:28: BID, # 60 Jessy nn Tablet 00 tab, 0 [Detrol] Refill(s) Loratadine 0 Yes 10 mg = 1 Me moria 10 MG Oral 9-10 tab, PO, l Tablet 07:28: Daily, # Stigler 00 30 tab, 0 Refill(s) 200 ACTUAT 0 Yes 2 puff, Samson jere Albuterol 9-10 INHALER, l 0.09 07:28: Q6H, PRN Arash MG/ACTUAT 00 for Metered wheezing, Dose # 8.5 gm, Inhaler 0 [ProAir Refill(s) HFA] Amlodipine No PO, Daily, M emoria 9-10 0 l 07:28: Refill(s) Arash 00 Furosemide No 40 mg = 1 Me moria 40 MG Oral 9-10 tab, PO, l Tablet 07:28: Daily, # Stig[place] [Lasix] 00 30 tab, 0 Refill(s) Levoxyl 0 No PO, Daily, Samson jere 9-10 0 l 07:28: Refill(s) Stigler 00 losartan 50 Yes 50 mg = 1 M emoria mg oral 9-10 tab, PO, l tablet 07:28: Daily, # Arash 00 30 tab, 0 Refill(s) metoprolol Yes 50 mg = 1 Me moria [...] tab, PO, l Tablet 07:28: Daily, # Stigler 00 30 tab, 0 Refill(s) 200 ACTUAT 0 Yes 2 puff, Samson jere Albuterol 9-10 INHALER, l 0.09 07:28: Q6H, PRN Stigler MG/ACTUAT 00 for Metered wheezing, Dose # 8.5 gm, Inhaler 0 [ProAir Refill(s) HFA] Amlodipine No PO, Daily, M emoria 9-10 0 l 07:28: Refill(s) Stigler 00 Furosemide 2018- No 40 mg = 1 Me moria 40 MG Oral 9-10 tab, PO, l Tablet 07:28: Daily, # Stigler [Lasix] 00 30 tab, 0 Refill(s) Levoxyl No PO, Daily, Samson jere 9-10 0 l 07:28: Refill(s) Arash 00 losartan 50 2019- Yes 50 mg = 1 M emoria mg oral 9-10 tab, PO, l tablet 07:28: Daily, # Stigler 00 30 tab, 0 Refill(s) metoprolol Yes 50 mg = 1 Me moria [...] PO, l Tablet 07:28: Daily, # Arash 00 30 tab, 0 Refill(s) 200 ACTUAT 0 Yes 2 puff, Samson jere Albuterol 9-10 INHALER, l 0.09 07:28: Q6H, PRN Arash MG/ACTUAT 00 for Metered wheezing, Dose # 8.5 gm, Inhaler 0 [ProAir Refill(s) HFA] Flagyl No Notes: Memoria 9-10 (Same as: l 05:00: Flagyl) Stigler 00 Avoid alcohol. Vancomycin No 2001 mg: Me moria 9-10 infuse l 05:00: over 2.5 Arash 00 hours For adult patients only: Round to nearest 250 mg per Medical Staff approval MEDICATION WASTE Product Size: 1000 mg Product Wasted: ___ mg Flagyl 2019-0 No Notes: Memoria 9-10 (Same as: l 05:00: Flagyl) Arash 00 Avoid alcohol. Vancomycin 2019-0 No 2001 mg: Me moria 9-10 infuse l 05:00: over 2.5 Arash 00 hours For adult patients only: Round to nearest 250 mg per Medical Staff approval MEDICATION WASTE Product Size: 1000 mg Product Wasted: ___ mg Flagyl 2019-0 No Notes: Memoria 9-10 (Same as: l 05:00: Flagyl) Stigler 00 Avoid alcohol. Vancomycin 2019-0 No 2001 mg: Me moria 9-10 infuse l 05:00: over 2.5 Arash 00 hours For adult patients only: Round to nearest 250 mg per Medical Staff approval MEDICATION WASTE Product Size: 1000 mg Product Wasted: ___ mg Flagyl 2019-0 No Notes: Memoria 9-10 (Same as: l 05:00: Flagyl) Stigler 00 Avoid alcohol. Vancomycin 2019-0 No 2001 mg: Me moria 9-10 infuse l 05:00: over 2.5 Stigler 00 hours For adult patients only: Round to nearest 250 mg per Medical Staff approval MEDICATION WASTE Product Size: 1000 mg Product Wasted: ___ mg Flagyl 2019-0 No Notes: Memoria 9-10 (Same as: l 05:00: Flagyl) Arash 00 Avoid alcohol. Vancomycin 2019-0 No 2001 mg: Me moria 9-10 infuse l 05:00: over 2.5 Arash 00 hours For adult patients only: Round to nearest 250 mg per Medical Staff approval MEDICATION WASTE Product Size: 1000 mg Product Wasted: ___ mg Flagyl 2019-0 No Notes: Memoria 9-10 (Same as: l 05:00: Flagyl) Stigler 00 Avoid alcohol. Vancomycin 2019-0 No 2001 mg: Me moria 9-10 infuse l 05:00: over 2.5 Stigler 00 hours For adult patients only: Round to nearest 250 mg per Medical Staff approval MEDICATION WASTE Product Size: 1000 mg Product Wasted: ___ mg Vancomycin 2019-0 No 2001 mg: Me moria 9-10 infuse l 04:25: over 2.5 Stigler 00 hours For adult patients only: Round to nearest 250 mg per Medical Staff approval MEDICATION WASTE Product Size: 1000 mg Product Wasted: ___ mg cefepime 2019-0 No Notes: Memoria 05-27 (Same as: l 04:25: Maxipime) Arash 00 MEDICATION WASTE Product Size: 2000 mg Product Wasted: ___ mg Vancomycin 2019-0 No 2001 mg: Me moria 9-10 infuse l 04:25: over 2.5 Arash 00 hours For adult patients only: Round to nearest 250 mg per Medical Staff approval MEDICATION WASTE Product Size: 1000 mg Product Wasted: ___ mg cefepime 2019-0 No Notes: Memoria 05-27 (Same as: l 04:25: Maxipime) Arash 00 MEDICATION WASTE Product Size: 2000 mg Product Wasted: ___ mg Vancomycin 2019-0 No 2001 mg: Me moria 9-10 infuse l 04:25: over 2.5 Stigler 00 hours For adult patients only: Round to nearest 250 mg per Medical Staff approval MEDICATION WASTE Product Size: 1000 mg Product Wasted: ___ mg cefepime 2019-0 No Notes: Memoria 05-27 (Same as: l 04:25: Maxipime) Stigler 00 MEDICATION WASTE Product Size: 2000 mg Product Wasted: ___ mg Vancomycin 2019-0 No 2001 mg: Me moria 9-10 infuse l 04:25: over 2.5 Stigler 00 hours For adult patients only: Round to nearest 250 mg per Medical Staff approval MEDICATION WASTE Product Size: 1000 mg Product Wasted: ___ mg cefepime 2019-0 No Notes: Memoria 10 (Same as: l 04:25: Maxipime) Stigler 00 MEDICATION WASTE Product Size: 2000 mg Product Wasted: ___ mg Vancomycin 2019-0 No 2001 mg: Me moria 9-10 infuse l 04:25: over 2.5 Stigler 00 hours For adult patients only: Round to nearest 250 mg per Medical Staff approval MEDICATION WASTE Product Size: 1000 mg Product Wasted: ___ mg cefepime 2019- No Notes: Memoria 9-10 (Same as: l 04:25: Maxipime) Stigler 00 MEDICATION WASTE Product Size: 2000 mg Product Wasted: ___ mg Vancomycin 2019- No 2001 mg: Me moria 9-10 infuse l 04:25: over 2.5 Arash 00 hours For adult patients only: Round to nearest 250 mg per Medical Staff approval MEDICATION WASTE Product Size: 1000 mg Product Wasted: ___ mg cefepime 2019- No Notes: Memoria 9-10 (Same as: l 04:25: Maxipime) Stigler 00 MEDICATION WASTE Product Size: 2000 mg Product Wasted: ___ mg Enoxaparin 2019- No Notes: Memor ia 9-10 (Same as: l 04:00: Lovenox) Stigler Enoxaparin No Notes: Memor ia 9-10 (Same as: l 04:00: Lovenox) Stigler Enoxaparin No Notes: Memor ia 9-10 (Same as: l 04:00: Lovenox) Stigler Enoxaparin No Notes: Memor ia 9-10 (Same as: l 04:00: Lovenox) Stigler Enoxaparin No Notes: Memor ia 9-10 (Same as: l 04:00: Lovenox) Stigler Enoxaparin No Notes: Memor ia 9-10 (Same as: l 04:00: Lovenox) Arash Nystatin 2018- No Notes: Memoria 100 UNT/MG -10 (Same l Topical 03:59: as:Mycosta Herm rachna Powder 00 tin, Nilstat) For external use only. Albuterol No Notes: Memori a 0.833 MG/ML -10 (Same as: l / 03:59: Duoneb) Arash Ipratropium 00 [place] 0.167 MG/ML Inhalant Solution Saline No Notes: Memoria Flush 0.9% 9-10 (Same as: l 03:59: BD Arash 00 Posiflush) Nystatin No Notes: Memoria 100 UNT/MG 9-10 (Same l Topical 03:59: as:Mycosta Herm rachna Powder 00 tin, Nilstat) For external use only. Albuterol No Notes: Memori a 0.833 MG/ML 9-10 (Same as: l / 03:59: Duoneb) Arash Ipratropium 00 [place] 0.167 MG/ML Inhalant Solution Saline No Notes: Memoria Flush 0.9% 9-10 (Same as: l 03:59: BD Arash 00 Posiflush) Nystatin No Notes: Memoria 100 UNT/MG 9-10 (Same l Topical 03:59: as:Mycosta Herm rachna Powder 00 tin, Nilstat) For external use only. Albuterol No Notes: Memori a 0.833 MG/ML 9-10 (Same as: l / 03:59: Duoneb) Arash Ipratropium 00 [place] 0.167 MG/ML Inhalant Solution Saline No Notes: Memoria Flush 0.9% 9-10 (Same as: l 03:59: BD Stigler 00 Posiflush) Nystatin No Notes: Memoria 100 UNT/MG 9-10 (Same l Topical 03:59: as:Mycosta Herm rachna Powder 00 tin, Nilstat) For external use only. Albuterol No Notes: Memori a 0.833 MG/ML 9-10 (Same as: l / 03:59: Duoneb) Arash Ipratropium 00 [place] 0.167 MG/ML Inhalant Solution Saline No Notes: Memoria Flush 0.9% 9-10 (Same as: l 03:59: BD Arash 00 Posiflush) Nystatin No Notes: Memoria 100 UNT/MG 9-10 (Same l Topical 03:59: as:Mycosta Herm rachna Powder 00 tin, Nilstat) For external use only. Albuterol No Notes: Memori a 0.833 MG/ML 9-10 (Same as: l / 03:59: Duoneb) Stigler Ipratropium 00 [place] 0.167 MG/ML Inhalant Solution Saline No Notes: Memoria Flush 0.9% 9-10 (Same as: l 03:59: BD Stigler 00 Posiflush) Nystatin No Notes: Memoria 100 UNT/MG 9-10 (Same l Topical 03:59: as:Mycosta Herm rachna Powder 00 tin, Nilstat) For external use only. Albuterol No Notes: Memori a 0.833 MG/ML 9-10 (Same as: l / 03:59: Duoneb) Arash Ipratropium 00 [place] 0.167 MG/ML Inhalant Solution Saline No Notes: Memoria Flush 0.9% 9-10 (Same as: l 03:59: BD Stigler 00 Posiflush) Fentanyl No 50 Memoria 9-09 microgram, l 23:09: Route: Stigler 00 IVP, ONCE, Dosing Weight 130, kg, Priority: STAT, Start date: 05/26/19 18:09:00 CDT, Stop date: 05/26/19 18:09:00 CDT Fentanyl 2018-0 No 50 Memoria 9-09 microgram, l 23:09: Route: Stigler 00 IVP, ONCE, Dosing Weight 130, kg, Priority: STAT, Start date: 05/26/19 18:09:00 CDT, Stop date: 05/26/19 18:09:00 CDT Fentanyl 2019-0 No 50 Memoria 9-09 microgram, l 23:09: Route: Arash 00 IVP, ONCE, Dosing Weight 130, kg, Priority: STAT, Start date: 05/26/19 18:09:00 CDT, Stop date: 05/26/19 18:09:00 CDT Fentanyl 2019-0 No 50 Memoria 9-09 microgram, l 23:09: Route: Stigler 00 IVP, ONCE, Dosing Weight 130, kg, Priority: STAT, Start date: 05/26/19 18:09:00 CDT, Stop date: 05/26/19 18:09:00 CDT Fentanyl 2019-0 No 50 Memoria 9-09 microgram, l 23:09: Route: Stigler 00 IVP, ONCE, Dosing Weight 130, kg, Priority: STAT, Start date: 05/26/19 18:09:00 CDT, Stop date: 05/26/19 18:09:00 CDT Fentanyl 2019-0 No 50 Memoria 9-09 microgram, l 23:09: [...] 50 Memoria 9-09 microgram, l 20:47: Route: Arash 00 IVP, Drug form: INJ, ONCE, Dosing Weight 130, kg, Priority: STAT, Start date: 05/26/19 15:47:00 CDT, Stop date: 05/26/19 15:47:00 CDT, 0 Fentanyl 2019-0 No 50 Memoria 9-09 microgram, l 20:47: Route: Arash 00 IVP, Drug form: INJ, ONCE, Dosing Weight 130, kg, Priority: STAT, Start date: 05/26/19 15:47:00 CDT, Stop date: 05/26/19 15:47:00 CDT, 0 Fentanyl 2019-0 No 50 Memoria 9-09 microgram, l 20:47: Route: Arash 00 IVP, Drug form: INJ, ONCE, Dosing Weight 130, kg, Priority: STAT, Start date: 05/26/19 15:47:00 CDT, Stop date: 05/26/19 15:47:00 CDT, 0 Fentanyl 2019-0 No 50 Memoria 9-09 microgram, l 20:47: Route: Arash 00 IVP, Drug form: INJ, ONCE, Dosing Weight 130, kg, Priority: STAT, Start date: 05/26/19 15:47:00 CDT, Stop date: 05/26/19 15:47:00 CDT, 0 Fentanyl 2018-0 No 50 Memoria - microgram, l 20:47: Route: Stigler IVP, Drug form: INJ, ONCE, Dosing Weight 130, kg, Priority: STAT, Start date: 05/26/19 15:47:00 CDT, Stop date: 05/26/19 15:47:00 CDT, 0 Fentanyl 2018-0 No 50 Memoria - microgram, l 20:47: Route: Stigler IVP, Drug form: INJ, ONCE, Dosing Weight 130, kg, Priority: STAT, Start date: 05/26/19 15:47:00 CDT, Stop date: 05/26/19 15:47:00 CDT, 0 Versed 2019-0 No 1 mg/kg, Memoria 05-26 Route: l [...] CDT, Stop date: 05/26/19 15:46:00 CDT Versed 2019-0 No 1 mg/kg, Memoria 05-26 Route: l 20:46: IVP, ONCE, Dosing Weight 130, kg, Priority: STAT, Start date: 05/26/19 15:46:00 CDT, Stop date: 05/26/19 15:46:00 CDT Fentanyl 2019-0 No 50 Memoria 9-09 microgram, l 19:46: 1 mL, Route: IVP, Drug form: INJ, ONCE, Dosing Weight 130, kg, Priority: STAT, Start date: 05/26/19 14:46:00 CDT, Stop date: 05/26/19 14:46:00 CDT, 0 Fentanyl 2019-0 No 50 Memoria 9-09 microgram, l 19:46: 1 mL, Route: IVP, Drug form: INJ, ONCE, Dosing Weight 130, kg, Priority: STAT, Start date: 05/26/19 14:46:00 CDT, Stop date: 05/26/19 14:46:00 CDT, 0 Fentanyl 2019-0 No 50 Memoria 9-09 microgram, l 19:46: 1 mL, Route: IVP, Drug form: INJ, ONCE, Dosing Weight 130, kg, Priority: STAT, Start date: 05/26/19 14:46:00 CDT, Stop date: 05/26/19 14:46:00 CDT, 0 Fentanyl 2019-0 No 50 Memoria 9-09 microgram, l 19:46: 1 mL, Route: IVP, Drug form: INJ, ONCE, Dosing Weight 130, kg, Priority: STAT, Start date: 05/26/19 14:46:00 CDT, Stop date: 05/26/19 14:46:00 CDT, 0 Fentanyl 2019-0 No 50 Memoria 9-09 microgram, l 19:46: 1 mL, Route: IVP, Drug form: INJ, ONCE, Dosing Weight 130, kg, Priority: STAT, Start date: 05/26/19 14:46:00 CDT, Stop date: 05/26/19 14:46:00 CDT, 0 Fentanyl 2019-0 No 50 Memoria 05-26 microgram, l 19:46: 1 mL, Stigler 00 Route: IVP, Drug form: INJ, ONCE, Dosing Weight 130, kg, Priority: STAT, Start date: 05/26/19 14:46:00 CDT, Stop date: 05/26/19 14:46:00 CDT, 0 Propofol No Notes: Per [facility] 05-26 state l 19:42: nursing Stigler 00 law propofol can only be given by a nurse if patient is intubated or being intubated (unless the nurse is a BUCKET OPERATOR). (Same as: Ju) Fentanyl No Notes: Memoria 05-26 (Same as: l 19:42: Sublimaze) Arash [facility]ol No [facility]: [facility] 19:42: nursing Arash 00 law propofol can only be given by a nurse if patient is intubated or being intubated (unless the nurse is a BUCKET OPERATOR). (Same as: Ju) Fentanyl No Notes: Memoria 05-26 (Same as: l 19:42: Sublimaze) Arash Propofol No Notes: [facility] state l 19:42: nursing Stigler 00 law propofol can only be given by a nurse if patient is intubated or being intubated (unless the nurse is a BUCKET OPERATOR). (Same as: Ju) Fentanyl No Notes: Memoria 05-26 (Same as: l 19:42: Sublimaze) Stigler Propofol No Notes: Per [facility] oria 05-26 state l 19:42: nursing Arash 00 law propofol can only be given by a nurse if patient is intubated or being intubated (unless the nurse is a BUCKET OPERATOR). (Same as: Ju) Fentanyl No Notes: Memoria 05-26 (Same as: l 19:42: Sublimaze) Stigler Propofol No Notes: Per [facility] oria 05-26 state l 19:42: nursing Arash 00 law propofol can only be given by a nurse if patient is intubated or being intubated (unless the nurse is a BUCKET OPERATOR). (Same as: Ju) Fentanyl No Notes: Memoria 05-26 (Same as: l 19:42: Sublimaze) Propofol No Notes: Per [facility] 05-26 state l 19:42: nursing law propofol can only be given by a nurse if patient is intubated or being intubated (unless the nurse is a BUCKET OPERATOR). (Same as: Joelrileonor) Fentanyl No Notes: oria 05-26 (Same as: l 19:42: Sublimaze) propofol No 1,000 mg, M emoria mg/mL 05-26 100 mL, l (Titrate.) 19:30: Rate: Vincent n IV 1,000 mg 00 Titrate, Start Dose: 5 microgram/ kg/min, Titration: 5 microgram/ kg/min every 15 min, Goal(s): RASS -1, Max Dose: 50 microgram/ kg/min, Route: IV, Dosing Weight 130 kg, Total Volume: 100, Start date: 05/26/19 14:30:00 CDT, Durati... propofol No 1,000 mg, M emoria mg/mL 05-26 100 mL, l (Titrate.) 19:30: Rate: Vincent n IV 1,000 mg 00 Titrate, Start Dose: 5 microgram/ kg/min, Titration: 5 microgram/ kg/min every 15 min, Goal(s): RASS -1, Max Dose: 50 microgram/ kg/min, Route: IV, Dosing Weight 130 kg, Total Volume: 100, Start date: 05/26/19 14:30:00 CDT, Durati... propofol No 1,000 mg, M emoria mg/mL 05-26 100 mL, l (Titrate.) 19:30: Rate: Vincent n IV 1,000 mg 00 Titrate, Start Dose: 5 microgram/ kg/min, Titration: 5 microgram/ kg/min every 15 min, Goal(s): RASS -1, Max Dose: 50 microgram/ kg/min, Route: IV, Dosing Weight 130 kg, Total Volume: 100, Start date: 05/26/19 14:30:00 CDT, Durati... propofol No 1,000 mg, M emoria mg/mL 05-26 100 mL, l (Titrate.) 19:30: Rate: Vincent n IV 1,000 mg 00 Titrate, Start Dose: 5 microgram/ kg/min, Titration: 5 microgram/ kg/min every 15 min, Goal(s): RASS -1, Max Dose: 50 microgram/ kg/min, Route: IV, Dosing Weight 130 kg, Total Volume: 100, Start date: 05/26/19 14:30:00 CDT, Durati... propofol No 1,000 mg, M emoria mg/mL 05-26 100 mL, l (Titrate.) 19:30: Rate: Vincent n IV 1,000 mg 00 Titrate, Start Dose: 5 microgram/ kg/min, Titration: 5 microgram/ kg/min every 15 min, Goal(s): RASS -1, Max Dose: 50 microgram/ kg/min, Route: IV, Dosing Weight 130 kg, Total Volume: 100, Start date: 05/26/19 14:30:00 CDT, Durati... propofol No 1,000 mg, M emoria mg/mL 05-26 [...] Notes: Memoria 05-26 (Same l 18:16: as:Omnipaq Stigler 00 ue 350). WASTE: F/P - Black; E - Municipal Trash Bin Iohexol No Notes: oria 05-26 (Same l 18:16: as:Omnipaq Arash 00 ue 350). WASTE: F/P - Black; E - Municipal Trash Bin Iohexol No Notes: oria 05-26 (Same l 18:16: as:Omnipaq Arash 00 ue 350). WASTE: F/P - Black; E - Municipal Trash Bin Iohexol 2019-0 No Notes: oria 05-26 (Same l 18:16: as:Omnipaq Stigler 00 ue 350). WASTE: F/P - Black; E - Municipal Trash Bin Iohexol 0 No Notes: oria 05-26 (Same l 18:16: as:Omnipaq Stigler 00 ue 350). WASTE: F/P - Black; E - Municipal Trash Bin Iohexol 0 No Notes: oria 05-26 (Same l 18:16: as:Omnipaq Stigler 00 ue 350). WASTE: F/P - Black; E - Municipal Trash Bin Iohexol 0 No 150 mL, Memoria 05-26 Route: l 18:12: IVP, Drug Stigler Form: SOLN, kg, ONCALL, STAT, Start date: 05/26/19 13:12:00 CDT, Duration: 1 doses or times, Dose = 2.2ml/kg, Max dose = 150ml -- "To be infused by Radiology Staff ONLY" Iohexol 0 No 150 mL, Memoria 05-26 Route: l 18:12: IVP, Drug Stigler Form: SOLN, kg, ONCALL, STAT, Start date: 05/26/19 13:12:00 CDT, Duration: 1 doses or times, Dose = 2.2ml/kg, Max dose = 150ml -- "To be infused by Radiology Staff ONLY" Iohexol No 150 mL, Memoria 05-26 Route: l 18:12: IVP, Drug Stigler Form: SOLN, kg, ONCALL, STAT, Start date: 05/26/19 13:12:00 CDT, Duration: 1 doses or times, Dose = 2.2ml/kg, Max dose = 150ml -- "To be infused by Radiology Staff ONLY" Iohexol 0 No 150 mL, Memoria 05-26 Route: l 18:12: IVP, Drug Stigler 00 Form: SOLN, kg, ONCALL, STAT, Start date: 05/26/19 13:12:00 CDT, Duration: 1 doses or times, Dose = 2.2ml/kg, Max dose = 150ml -- "To be infused by Radiology Staff ONLY" Iohexol No 150 mL, Memoria 05-26 Route: l 18:12: IVP, Drug Stigler 00 Form: SOLN, kg, ONCALL, STAT, Start date: 05/26/19 13:12:00 CDT, Duration: 1 doses or times, Dose = 2.2ml/kg, Max dose = 150ml -- "To be infused by Radiology Staff ONLY" Iohexol No 150 mL, Memoria 05-26 Route: l 18:12: IVP, Drug Arash 00 Form: SOLN, kg, ONCALL, STAT, Start [...] Memoria 05-26 (Same as: l 17:22: Zofran) Stigler 00 MEDICATION WASTE Product Size: 4 mg [...] Memoria 05-26 (Same as: l 17:22: Zofran) Stigler 00 MEDICATION WASTE Product Size: 4 mg Product Wasted: ___ mg Morphine No Notes: Memoria 9- (Same l 17:22: as:MORPhin Arash 00 e Sulfate) Zofran No Notes: Memoria 9 (Same as: l 17:22: Zofran) Arash MEDICATION WASTE Product Size: 4 mg Product Wasted: ___ mg Morphine No Notes: Memoria 9 (Same l 17:22: as:MORPhin Arash 00 e Sulfate) Zofran No Notes: Memoria 9- (Same as: l 17:22: Zofran) Stigler MEDICATION WASTE Product Size: 4 mg Product Wasted: ___ mg Saline No Notes: Memoria Flush 0.9% 9-09 (Same as: l 17:16: BD Stigler 00 Posiflush) Saline No Notes: Memoria Flush 0.9% 9-09 (Same as: l 17:16: BD Arash 00 Posiflush) Saline No Notes: Memoria Flush 0.9% 9-09 (Same as: l 17:16: BD Stigler 00 Posiflush) Saline No Notes: Memoria Flush 0.9% 9-09 (Same as: l 17:16: BD Stigler 00 Posiflush) Saline No Notes: Memoria Flush 0.9% 9-09 (Same as: l 17:16: BD Stigler 00 Posiflush) Saline No Notes: Memoria Flush 0.9% 9-09 (Same as: l 17:16: BD Arash 00 Posiflush) Estrace Estrace Yes Ramon as Commo n 6-06 [facility]: - [facility] Levothyroxi Levothyroxi Yes Ramon 1 tablet Common ne Sodium ne Sodium [facility] tai empty - [facility] stomach in [facility] Pravastatin Pravastatin Yes Ramon 1 tablet Common Sodium Sodium [facility] Loratadine Loratadine Yes Ramon 1 tablet Common Allergy Allergy [facility] t Relief Relief tongue and - [facility] allow to [facility] Perforomist Perforomist Yes Ramon 2 ml Common [facility] Divalproex Divalproex Yes Ramon not C ommon Sodium Sodium [facility] Losartan Losartan Yes Ramon 1 tablet C ommon Potassium Potassium [facility] Furosemide Furosemide Yes Ramon 1 tablet Common [facility] ProAir HFA ProAir HFA Yes Ramon 2 puffs as Common [facility] needed [facility] Symbicort Symbicort Yes Ramon 2 puffs Common [facility] Amlodipine Amlodipine Yes Ramon 1 tablet Common Besylate Besylate [facility] Klor-Con Klor-Con Yes Ramon 1 packet C ommon [facility] with food [facility] Quetiapine Quetiapine Yes Ramon 1 tablet Common Fumarate Fumarate [facility] [facility] Metoprolol Metoprolol Yes Ramon not C ommon Succinate Succinate [facility] Immunizations Ordered Filled Immunization Date Status Comments [facility] e Immunization Name Name Pneumococcal 2015-05-30 Completed Romeo o f Polysaccharide, 00:00:00 [facility] PPSV23 (PNEUMOVAX) [place] Vital Signs Vital Name Observation Time Observation Value Comments Source Systolic blood 2020-11-12 22:50:00 152 mm[Hg] [facility] [place], operated by [facility] Diastolic blood 2020-11-12 22:50:00 67 mm[Hg] [facility] Heart rate 2020-11-12 22:50:00 90 /min [facility] Body temperature 2020-11-12 22:50:00 37.39 Karen [facility] acute hospital Respiratory rate 2020-11-12 22:50:00 20 /min General acute hospital Oxygen saturation in 2020-11-12 22:50:00 96 /min [facility] Arterial blood by [facility] Pulse oximetry Branch Body weight 2020-11-03 23:13:00 113.399 kg [facility] BMI 2020-11-03 23:13:00 47.20 kg/m2 [facility] Systolic blood 2020-11-12 22:50:00 152 mm[Hg] Univer sity of pressure [facility] Diastolic blood 2020-11-12 22:50:00 67 mm[Hg] Unive rsity of pressure [facility] Heart rate 2020-11-12 22:50:00 90 /min [facility] Body temperature 2020-11-12 22:50:[address] [facility] 2020-11-12 22:50:00 20 /min [facility] Oxygen saturation in 2020-11-12 22:50:00 96 /min [facility] Arterial blood by [facility] Pulse oximetry [place] Body weight 2020-11-03 23:13:00 113.399 kg [facility] BMI 2020-11-03 23:13:00 47.20 kg/m2 [facility] Temperature Oral (F) 2019-09-17 13:15:00 98.1 F [facility] Heart Rate 2019-09-17 13:15:00 [facility] Respitory Rate 2019-09-17 13:15:00 [facility] Systolic (mm Hg) 2019-09-17 13:15:00 Samson rial [facility] Diastolic (mm Hg) 2019-09-17 13:15:00 Mem orial [facility] Temperature Oral (F) 2019-09-17 09:14:00 97.8 F [facility] Heart Rate 2019-09-17 09:14:00 [facility] Respitory Rate 2019-09-17 09:14:00 [facility] Systolic (mm Hg) 2019-09-17 09:14:00 Samson rial [facility]ash Diastolic (mm Hg) 2019-09-17 09:14:00 Mem orial [facility] Temperature Oral (F) 2019-09-17 04:42:00 97.6 F [facility] Heart Rate 2019-09-17 04:42:00 [facility] Respitory Rate 2019-09-17 04:42:00 Memori [facility] Systolic (mm Hg) 2019-09-17 04:42:00 Samson rial [facility] Diastolic (mm Hg) 2019-09-17 04:42:00 Mem orial [facility]ash Weight 2019-09-16 12:50:00 [facility] Height 2019-09-15 05:17:00 157.48 cm [facility] Weight 2019-09-15 05:17:00 [facility] BMI Calculated 2019-09-15 05:17:00 [facility] Temperature Oral (F) 2019-06-04 17:13:00 97.1 F [facility] Heart Rate 2019-06-04 17:13:00 [facility] Respitory Rate 2019-06-04 17:13:00 [facility] Systolic (mm Hg) 2019-06-04 17:13:00 Samson rial [facility] Diastolic (mm Hg) 2019-06-04 17:13:00 Mem orial Arash Temperature Oral (F) 2019-06-04 12:15:00 97.5 F [facility] Heart Rate 2019-06-04 12:15:00 [facility] Respitory Rate 2019-06-04 12:15:00 [facility] Systolic (mm Hg) 2019-06-04 12:15:00 Samson rial Arash Diastolic (mm Hg) 2019-06-04 12:15:00 Mem orial [facility] Heart Rate 2019-06-04 09:41:00 [facility] Respitory Rate 2019-06-04 09:41:00 Memori [facility] Systolic (mm Hg) 2019-06-04 09:41:00 Samson rial [facility] Diastolic (mm Hg) 2019-06-04 09:41:00 Mem orial [facility]ash Temperature Oral (F) 2019-06-03 21:55:00 99.4 F [facility] Height 2019-05-30 10:34:00 160.02 cm [facility] Height 2019 16:48:00 160.02 cm [facility] Height 2019 12:47:00 160.02 cm [facility] Weight 2019-05-27 02:16:00 [facility] BMI Calculated 2019-05-27 02:16:00 [facility] BMI Calculated 2019-05-26 17:05:00 [facility] Weight 2019-05-26 17:05:00 [facility] Procedures Procedure Date / Time Performing Clinician Source Performed BASIC METABOLIC PANEL (NA, 2020-11-10 10:07:00 [facility], CL, CO2, GLUCOSE, BUN, Medica l Branch CREATININE, CA) CBC WITH DIFF 2020-11-10 10:07:00 Abdul, [facility] VERIFYNOW ASPIRIN TEST 2020-11-10 10:07:00 Arminda Barrera [facility] BASIC METABOLIC PANEL (NA, 2020-11-09 10:43:00 Abdul, [facility] [place] K, CL, CO2, GLUCOSE, BUN, Medica l Branch CREATININE, CA) CBC WITH DIFF 2020-11-09 10:43:00 Abdul, [facility] MR BRAIN W WO CONTRAST 2020-11-08 18:56:40 Roxanne [facility]hand[facility] BASIC METABOLIC PANEL (NA, 2020-11-08 10:18:00 Abdul, [place]ie [facility] [place] K, CL, CO2, GLUCOSE, BUN, Medica l Branch CREATININE, CA) CBC WITH DIFF 2020-11-08 10:18:00 Abdul, [facility] POCT GLUCOSE (AUTOMATED) 2020-11-07 14:06:00 Sondra Spicer [facility] POCT GLUCOSE (AUTOMATED) 2020-11-07 02:09:00 Sondra Spicer [facility] POCT GLUCOSE (AUTOMATED) 2020-11-06 22:49:00 Sondra Spicer [facility] POCT GLUCOSE (AUTOMATED) 2020-11-06 18:43:00 Sondra Spicer [facility] POCT GLUCOSE (AUTOMATED) 2020-11-06 14:19:00 Sondra Spicer [facility] POCT GLUCOSE (AUTOMATED) 2020-11-06 02:45:00 Sondra Spicer [facility] POCT GLUCOSE (AUTOMATED) 2020-11-05 23:16:00 Sondra Spicer [facility] POCT GLUCOSE (AUTOMATED) 2020-11-05 18:47:00 Sondra Spicer [facility] POCT GLUCOSE (AUTOMATED) 2020-11-05 15:21:00 Sondra Spicer [facility] TROPONIN I 2020-11-05 10:07:00 [facility] BASIC METABOLIC PANEL (NA, 2020-11-05 10:07:00 [facility] K, CL, CO2, GLUCOSE, BUN, Jessie Medica Branch CREATININE, CA) CBC WITH DIFF 2020-11-05 10:07:00 [facility] TROPONIN I 2020-11-05 02:24:00 Briana Tiwari [facility] ECHO ROUTINE W/DOPPLER 2020-11-04 15:07:52 Briana Tiwari [facility] CAROTID DUPLEX BILATERAL 2020-11-04 14:36:19 Briana Tiwari [facility] BY VASCULAR LAB [facility] LIPID PANEL (78479)(TOTAL 2020-11-04 14:21:00 Briana Tiwari [facility] CHOLESTEROL, [facility] TRIGLYCERIDES, HDL) GLYCOSYLATED HEMOGLOBIN 2020-11-04 14:21:00 Briana Tiwari [facility] (A1C) [facility] URINALYSIS 2020-11-04 04:37:00 Sondra Spicer [facility] TROPONIN I 2020-11-04 04:33:00 Sondra Spicer [facility] N-TERMINAL PRO-BNP 2020-11-04 04:33:00 Sondra Spicer [facility] CREATINE KINASE 2020-11-04 00:28:00 Sean Posada [facility] CT STROKE ANGIOGRAM HEAD 2020-11-04 00:17:10 Sean Posada [facility] CT STROKE ANGIOGRAM NECK 2020-11-04 00:17:10 Sean Posada [facility] CT STROKE HEAD WO CONTRAST 2020-11-04 00:01:24 Sean Posada [facility] HB CREATININE BLOOD 2020-11-03 23:50:00 Sean Posada [facility] TROPONIN I 2020-11-03 23:49:00 Sean Posada [facility] BASIC METABOLIC PANEL (NA, 2020-11-03 23:49:00 Sean Posada [facility] K, CL, CO2, GLUCOSE, BUN, Medica l Branch CREATININE, CA) CBC WITHOUT DIFF 2020-11-03 23:49:00 Sean Posada [facility] PROTHROMBIN TIME / INR 2020-11-03 23:49:00 Sean Posada [facility] ACTIVATED PARTIAL THRMPLAS 2020-11-03 23:49:00 Sean Posada [facility] COVID-19 (ID NOW RAPID 2020-11-03 23:49:00 Sean Posada [facility] TESTING) Medical Branch LAB ONLY COVID 2020-11-03 23:49:00 Sean Posada [facility] INTERPRETATION [facility] HB ECG ROUTINE & RHYTHM 2020-11-03 23:29:45 [facility]) 2020-11-03 23:28:00 [facility]US[facility] FOR 2020-11-03 22:59:33 Doctor Hernán, [facility] DIAGNOSIS AND TREATMENT [facility] [place] NOTICE OF PRIVACY 2020-11-03 22:58:50 Doctor Hernán, [facility] PRACTICES [facility] AGREEMENTS AUTHORIZATIONS 2020-11-03 06:01:00 Doctor Hernán, [facility] AND IRREVOCABLE [facility] [place] ASSIGNMENTS (FORM 2000) Appendectomy [facility] Cholecystectomy [facility] Encounters Start End Encounter Admission Attending Care Care Encounter Source Date/Time Date/Time Type Type Clinicians Facility Department ID 2019-09-15 Inpatient [facility] MED [id number] [facility] B 00:38:00 2019-05-26 Inpatient E [facility] MED [id number] [facility] H 18:54:00 2020-11-15 2020-11-15 Outpatient DAKOTA Edwards [facility]L G00 [id number] [facility] 16:57:54 16:57:54 Tang Clemente [facility] 2020-11-03 2020-11-12 Hospital Sean Posada [facility] 1.2.840 .114 [id number] 17:16:00 19:49:00 [facility] [id number] Chip Jessie Clear 4.2.7.2. 686 Olman Ace [id number] [facility] 109 ([facility]) 2020-11-03 2020-11-12 [facility] 1.2.840 .114 [id number] [facility] 17:16:00 19:49:00 [facility] [id number] ity of Haileyprosper Jessie Clear 4.2.7.2. 686 [facility] Russell [id number] [facility] 109 Br anch ([facility]) 2020-11-03 2020-11-03 Emergency X [facility] ERT [id number] Univers 16:55:00 16:55:00 ity of [facility] 2019-09-15 2019-09-17 Inpatient nullFlavo [facility] [id number] Memoria 06:38:00 17:57:00 r Arash 62 l [place] Jessy 2019-09-15 2019-09-17 Inpatient nullFlavo [facility] [id number] Memoria 06:38:00 17:57:00 ortiz Antoine 62 l [place] Jessy 2019-09-15 2019-09-17 Inpatient [facility] [id number] Memoria 06:38:00 17:57:00 ortiz Antoine 62 l [place] Jessy 2019-09-15 2019-09-17 Outpatient Kiki, SL S [id number] 00:38:00 11:57:00 Alyssa Martinez Donya 2019-09-15 2019-09-17 Outpatient Kiki, SL S [id number] 00:38:00 11:57:00 Alyssa Naqvi 2019-05-26 2019-06-04 Inpatient [facility] [id number] Memoria 17:14:00 20:05:00 ortiz Antoine 00 l [facility] 2019-05-26 2019-06-04 Inpatient nullFlavo [facility] [id number] Memoria 17:14:00 20:05:00 r [facility] 00 [facility] 2019-05-26 2019-06-04 Inpatient nullFlavo [facility] [id number] Memoria 17:14:00 20:05:00 r Arash 00 [facility] 2019-05-26 2019-06-04 Outpatient Carla Petty [facility] [id number] 12:14:00 15:05:00 Abhijeet 2019-05-26 2019-06-04 Outpatient Latrice Pettyti [facility] [id number] 12:14:00 15:05:00 Abhijeet 2019-05-26 2019-05-26 Emergency nullFlavo [facility] [id number] Memoria 16:58:00 16:58:00 r Stigler 52 [facility] 2019-05-26 2019-05-26 Emergency nullFlavo [facility] [id number] Memoria 16:58:00 16:58:00 r Stigler 52 [facility] 2019-05-26 2019-05-26 Emergency nullFlavo [facility] [id number] Memoria 16:58:00 16:58:00 r Arash 52 [facility] 2019-05-26 2019-05-26 Outpatient Ann-Marie [facility] [id number] 11:58:00 11:58:00 Mp Jyotsna Gerhard 2019-05-26 2019-05-26 Outpatient Ann-Marie [facility] [id number] 11:58:00 11:58:00 Mp Jyotsna Hennessy 2018-11-11 2018-11-11 Out[facility] [id number] Common 14:00:00 14:00:00 [facility] 2018-11-04 2018-11-04 [facility] [id number] Common 14:00:00 14:00:00 t [facility] 2018-10-21 2018-10-21 [facility] [id number] Common 08:30:00 08:30:00 t [facility] Results Test Description Test Time Test Comments Results Result [facility] e Comments - CT UP EXTREM W/O 2020-11-16 CONT LT 16:39:00 [facility] 1945 Sex: F Name: JAMES BOYER [facility] [place] : 1945 Age/S: 75 / F [address] [facility] Unit #: [id number] Loc: [place] [address] Phys: Tang Giordano MD Acct: [id number] Dis Date: Status: REG CLI PHONE #: [phone] Exam Date: 11/16/2020 1237 FAX #: [phone] Reason: DISLOCATION OF LT SHOULDER. EXAMS: CPT CODE: [id number] CT UP EXTREM W/[place] [address] [place] left shoulder without contrast. INDICATION: Anterior [...] seen. Emphysematous changes partially included in the zqvbf-oc-dwqh in the left lung. Linear atelectasis or scarring in the left upper lobe noted. IMPRESSION: 1. No acute fracture or dislocation of shoulder. 2. 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 3. 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 SL: SG-H at 1639 Reported and signed by: Fausot Desai M.D. CC: Tang Giordano MD Technologist:Shobha Montelongo RT(R)(CT) CTDI: DLP: Trnscb Date/Time: 11/16/2020 (1639) CedrickR.SG9 PAGE 1 Signed Report VERIFYNOW ASPIRIN TEST 2020-11-10 11:00:00 Test Item Value Reference Range Interpretation Comme nts VerifyNow Aspirin Test (test See Comment ARU code = 1773909403) SHANIA (test code = SHANIA) < 550 [...] and clinical data available to the clinician. [facility] PRUTEST (P2Y12)2020-11-10 10:51:00 Test Item Value Reference Range Interpretation Comments VerifyNow PRUTest See_Comment [Automate d (P2Y12) (test code = message ] The 9108331406) system which generated this result transmitted reference [...] clinician. Lab Interpretation Normal (test code = 39186-6) [facility] (NA, K, CL, CO2, GLUCOSE, BUN, CREATININE, CA)2020-11-10 10:38:00 Test Item Value Reference Range Interpretation Comments NA (test code = 136 mmol/L 135-145 3421960548) K (test code = 3.8 mmol/L 3.5-5 5981350409) CL (test code = 97 mmol/L 98-108 L 7000314949) CO2 TOTAL (test code = 32 mmol/L 23-31 H 0512796430) AGAP (test code = 2-16 9832763712) BUN (test code = 19 mg/dL 7-23 3229070183) GLUCOSE (test code = 101 mg/dL 70-110 9205220339) CREATININE (test code = 0.89 mg/dL 0.5-1.04 3951965511) CALCIUM (test code = 9.4 mg/dL 8.6-10.6 5830337937) eGFR Calculation mL/min/1.73m2 (Non-) (test code = 8106012408) eGFR Calculation mL/min/1.73m2 () (test code = 0756991240) SHANIA (test code = SHANIA) Association of [...] tests). Lab Interpretation Abnormal (test code = 03201-4) [facility] WITH [id number] 10:31:00 Test Item Value Reference Range Interpretation Comments WBC (test code = See_Comment [Automated 3369-2) message] The sy stem which generated this result transmitted reference range : 4.30 - 11.10 10*3/?L. The reference range was not used to interpret this result as normal/abnormal . RBC (test code = See_Comment [Automated 980-0) message] The sy stem which generated this [...] RDW-SD (test code = 44.4 fL 39-49.9 76644-5) RDW-CV (test code = 13.5 % 12-15.5 788-0) PLT (test code = See_Comment [Automated 777-3) message] The sy stem which generated this result transmitted reference range : 166 - 358 10*3/ ?L. The reference r maría was not used to interpret this result as normal/abnormal . MPV (test code = 10.3 fL 9.5-12.9 42774-2) NRBC/100 WBC (test See_Comment [Automat ed code = 8986718816) message] The system which generated this result transmitted reference range : 0.0 - 10.0 /100 WBCs. The refer ence range was not u sed to interpret th is result as normal/abnormal . NRBC x10^3 (test code <0.01 See_Comment [Auto mated = 6069327517) message] The s ystem which generated this result transmitted reference range : 10*3/?L. The reference range was not used to interpret this result as normal/abnormal . GRAN MAT (NEUT) % 47.5 % (test code = 770-8) IMM GRAN % (test code 0.40 % = 5829766722) LYMPH % (test code = 39.2 % 736-9) MONO % (test code = 10.1 % 5905-5) EOS % (test code = 2.3 % 713-8) BASO % (test code = 0.5 % 706-2) GRAN MAT x10^3(ANC) 4.65 10*3/uL 1.88-7.09 (test code = 3139934394) IMM GRAN x10^3 (test 0.04 10*3/uL 0-0.06 code = 8256114656) LYMPH x10^3 (test code 3.85 10*3/uL 1.32-3.29 H = 731-0) MONO x10^3 (test code 0.99 10*3/uL 0.33-0.92 H = 742-7) EOS x10^3 (test code = 0.23 10*3/uL 0.03-0.39 711-2) BASO x10^3 (test code 0.05 10*3/uL 0.01-0.07 = 704-7) Lab Interpretation Abnormal (test code = 45635-7) [facility] METABOLIC PANEL (NA, K, CL, CO2, GLUCOSE, BUN, CREATININE, CA)2020-11-09 11:04:00 Test Item Value Reference Range Interpretation Comments NA (test code = 135 mmol/L 135-145 3783308847) K (test code = 3.8 mmol/L 3.5-5 9870576201) CL (test code = 98 mmol/L 98-108 9502850183) CO2 TOTAL (test code = 32 mmol/L 23-31 H 3707029199) AGAP (test code = 2-16 6021594256) BUN (test code = 17 mg/dL 7-23 5169453361) GLUCOSE (test code = 94 mg/dL 70-110 9921469815) CREATININE (test code = 0.89 mg/dL 0.5-1.04 0996334355) CALCIUM (test code = 9.3 mg/dL 8.6-10.6 3968150171) eGFR Calculation mL/min/1.73m2 (Non-) (test code = 3459221261) eGFR Calculation mL/min/1.73m2 () (test code = 4488004224) SHANIA (test code = SHANIA) Association of [...] tests). Lab Interpretation Abnormal (test code = 51922-0) [facility] WITH [id number] 10:52:00 Test Item Value Reference Range Interpretation Comments WBC (test code = See_Comment [Automated message] 0190-2) The system [employer] generated this result transmitted ref erence range: 4.30 - 1 1.10 10*3/?L. The re ference range was not u sed to interpret this result as normal/abnor mal. RBC (test code = See_Comment [Automated message] 199-8) The system [employer] generated this result transmitted ref erence range: [...] RDW-SD (test code 43.8 fL 39-49.9 = 47029-6) RDW-CV (test code 13.4 % 12-15.5 = 788-0) PLT (test code = See_Comment [Automated message] 137-3) The system whic h generated this result transmitted ref erence range: 166 - 35 8 10*3/?L. The re ference range was not u sed to interpret this result as normal/abnor mal. MPV (test code = 10.1 fL 9.5-12.9 86286-1) NRBC/100 WBC (test See_Comment [Automat ed message] code = 4194969918) The syste m which generated this result transmitted ref erence range: 0.0 - 10 .0 /100 WBCs. The refer ence range was not u sed to interpret this result as normal/abnor mal. NRBC x10^3 (test <0.01 See_Comment [Automated message] code = 5551628125) The syste m which generated this result transmitted ref erence range: 10*3/?L. The reference range was not used to interpr et this result as normal/abnormal . GRAN MAT (NEUT) % 53.2 % (test code = 770-8) IMM GRAN % (test 0.40 % code = 9829808841) LYMPH % (test code 31.3 % = 736-9) MONO % (test code 11.5 % = 5905-5) EOS % (test code = 3.1 % 713-8) BASO % (test code 0.5 % = 706-2) GRAN MAT 4.05 10*3/uL 1.88-7.09 x10^3(ANC) (test code = 5975508890) IMM GRAN x10^3 0.03 10*3/uL 0-0.06 (test code = 2638421115) LYMPH x10^3 (test 2.39 10*3/uL 1.32-3.29 code = 731-0) MONO x10^3 (test 0.88 10*3/uL 0.33-0.92 code = 742-7) EOS x10^3 (test 0.24 10*3/uL 0.03-0.39 code = 711-2) BASO x10^3 (test 0.04 10*3/uL 0.01-0.07 code = 704-7) [facility] BRAIN W WO [id number] 19:19:05 Acute-subacute lacunar infarct involving the right [...] voids for the major intracranial vessels areunremarkable. [facility], Radiant Results Inft User - 11/08/2020 1:20 [...] global volumeloss and mild ischemic small vessel diseaseUT [facility] MET[facility]OLIC PANEL (NA, K, CL, CO2, GLUCOSE, BUN, CREATININE, CA)2020-11-08 10:43:00 Test Item Value Reference Range Interpretation Comments NA (test code = 135 mmol/L 135-145 5102263989) K (test code = 3.8 mmol/L 3.5-5 0776202287) CL (test code = 98 mmol/L 98-108 1384110777) CO2 TOTAL (test code = 31 mmol/L 23-31 7315075925) AGAP (test code = 2-16 8077674734) BUN (test code = 18 mg/dL 7-23 3347520013) GLUCOSE (test code = 99 mg/dL 70-110 5881903045) CREATININE (test code 0.95 mg/dL 0.5-1.04 = 1168759413) CALCIUM (test code = 9.4 mg/dL 8.6-10.6 4019654335) eGFR Calculation mL/min/1.73m2 (Non-) (test code = 2846383470) eGFR Calculation mL/min/1.73m2 () (test code = 7851531264) SHANIA (test code = SHANIA) Association of [...] or urine or abnormalities in imaging tests). [facility] WITH [id number] 10:25:00 Test Item Value Reference Range Interpretation Comments WBC (test code = See_Comment [Automated 2690-2) message] The sy stem which generated this [...] RDW-SD (test code = 44.1 fL 39-49.9 53458-4) RDW-CV (test code = 13.3 % 12-15.5 788-0) PLT (test code = See_Comment H [Automated 777-3) message] The sy stem which generated this result transmitted reference range : 166 - 358 10*3/ ?L. The reference r maría was not used to interpret this result as normal/abnormal . MPV (test code = 10.0 fL 9.5-12.9 49352-7) NRBC/100 WBC (test See_Comment [Automat ed code = 9388030825) message] The system which generated this result transmitted reference range : 0.0 - 10.0 /100 WBCs. The refer ence range was not u sed to interpret th is result as normal/abnormal . NRBC x10^3 (test code <0.01 See_Comment [Auto mated = 3206209393) message] The s ystem which generated this result transmitted reference range : 10*3/?L. The reference range was not used to interpret this result as normal/abnormal . GRAN MAT (NEUT) % 54.7 % (test code = 770-8) IMM GRAN % (test code 0.10 % = 0080830244) LYMPH % (test code = 31.2 % 736-9) MONO % (test code = 11.0 % 5905-5) EOS % (test code = 2.6 % 713-8) BASO % (test code = 0.4 % 706-2) GRAN MAT x10^3(ANC) 4.55 10*3/uL 1.88-7.09 (test code = 2576552248) IMM GRAN x10^3 (test <0.03 0-0.06 code = 1647516106) LYMPH x10^3 (test code 2.59 10*3/uL 1.32-3.29 = 731-0) MONO x10^3 (test code 0.91 10*3/uL 0.33-0.92 = 742-7) EOS x10^3 (test code = 0.22 10*3/uL 0.03-0.39 711-2) BASO x10^3 (test code 0.03 10*3/uL 0.01-0.07 = 704-7) Lab Interpretation Abnormal (test code = 99565-1) [facility] COVID [id number] 05:02:00COVID DMT InterpretationInterpretation/Recommendations: Molecular NAAT Tests for [...] develops COVID-19 illness in the future, testing forIgM and IgG antibodies approximately 3 weeks after illness onset will likely indicate if the patienthas produced antibodies to the SARS-CoV-2 virus. However, [...] COVID-19 testing the patient has had at [facility], including molecular NAAT testing (more commonly known asPCR testing and Rapid ID Now testing) and antibody testing. It does not take into account any testing that a patient has had outside of the [facility] medical record. [facility] LABORATORY SERVICESCOVID ResultsSARS -CoV-2 Rapid ID NOW (no units) ? ? Date ? Value ? 11/03/2020 ? Not Detected ? [facility] LABORATORY SERVICES [facility] GLUCOSE (AUTOMATED)2020-11-07 14:07:00 Test Item Value Reference Range Interpretation Comments POCT GLU (test code = 1035945218) 93 mg/dL 70-110 Lab Interpretation (test code = Normal 38988-3) [facility] GLUCOSE (AUTOMATED)2020-11-07 02:11:00 Test Item Value Reference Range Interpretation Comments POCT GLU (test code = 5461501630) 109 mg/dL 70-110 Lab Interpretation (test code = Normal 42411-3) [facility] GLUCOSE (AUTOMATED)2020-11-06 22:50:00 Test Item Value Reference Range Interpretation Comments POCT GLU (test code = 1739729559) 119 mg/dL 70-110 H Lab Interpretation (test code = Abnormal 19055-1) [facility] GLUCOSE (AUTOMATED)2020-11-06 18:52:00 Test Item Value Reference Range Interpretation Comments POCT GLU (test code = 2359113865) 101 mg/dL 70-110 Lab Interpretation (test code = Normal 73589-8) [facility] GLUCOSE (AUTOMATED)2020-11-06 14:19:00 Test Item Value Reference Range Interpretation Comments POCT GLU (test code = 1569049631) 100 mg/dL 70-110 Lab Interpretation (test code = Normal 87035-1) [facility] GLUCOSE (AUTOMATED)2020-11-06 02:46:00 Test Item Value Reference Range Interpretation Comments POCT GLU (test code = 1854350061) 89 mg/dL 70-110 Lab Interpretation (test code = Normal 19687-1) [facility] GLUCOSE (AUTOMATED)2020-11-05 23:17:00 Test Item Value Reference Range Interpretation Comments POCT GLU (test code = 6732622467) 101 mg/dL 70-110 Lab Interpretation (test code = Normal 97759-3) [facility] GLUCOSE (AUTOMATED)2020-11-05 18:49:00 Test Item Value Reference Range Interpretation Comments POCT GLU (test code = 0052447562) 110 mg/dL 70-110 Lab Interpretation (test code = Normal 63741-4) [facility] GLUCOSE (AUTOMATED)2020-11-05 15:22:00 Test Item Value Reference Range Interpretation Comments POCT GLU (test code = 6491565812) 100 mg/dL 70-110 Lab Interpretation (test code = Normal 42531-4) [facility] [id number] 11:16:00 Test Item Value Reference Range Interpretation Comments TROPONIN I (test 0.061 ng/mL See_Comment H [Automated code = 5943504334) message] The system which generated this result [...] ? Lab Interpretation Abnormal (test code = 59001-6) [facility] (NA, K, CL, CO2, GLUCOSE, BUN, CREATININE, CA)2020-11-05 10:30:00 Test Item Value Reference Range Interpretation Comments NA (test code = 138 mmol/L 135-145 7467654047) K (test code = 3.2 mmol/L 3.5-5 L 7052757571) CL (test code = 98 mmol/L 98-108 1035420976) CO2 TOTAL (test code = 32 mmol/L 23-31 H 3554876217) AGAP (test code = 2-16 8443902492) BUN (test code = 29 mg/dL 7-23 H 6823210097) GLUCOSE (test code = 106 mg/dL 70-110 1506344835) CREATININE (test code = 1.18 mg/dL 0.5-1.04 H 7118159602) CALCIUM (test code = 9.3 mg/dL 8.6-10.6 8502052980) eGFR Calculation mL/min/1.73m2 (Non-) (test code = 0732000317) eGFR Calculation mL/min/1.73m2 () (test code = 0295801153) SHANIA (test code = SHANIA) Association of [...] tests). Lab Interpretation Abnormal (test code = 69651-9) [facility] WITH [id number] 10:17:00 Test Item Value Reference Range Interpretation Comments WBC (test code = See_Comment [Automated 7762-2) message] The sy stem which generated this result transmitted reference range : 4.30 - 11.10 10*3/?L. The reference range was not used to interpret this result as normal/abnormal . RBC (test code = See_Comment [Automated 057-8) message] The sy stem which generated this [...] RDW-SD (test code = 45.7 fL 39-49.9 67182-3) RDW-CV (test code = 13.6 % 12-15.5 788-0) PLT (test code = See_Comment H [Automated 777-3) message] The sy stem which generated this result transmitted reference range : 166 - 358 10*3/ ?L. The reference r maría was not used to interpret this result as normal/abnormal . MPV (test code = 10.3 fL 9.5-12.9 36849-3) NRBC/100 WBC (test See_Comment [Automat ed code = 1307975823) message] The system which generated this result transmitted reference range : 0.0 - 10.0 /100 WBCs. The refer ence range was not u sed to interpret th is result as normal/abnormal . NRBC x10^3 (test code <0.01 See_Comment [Auto mated = 4216139788) message] The s ystem which generated this result transmitted reference range : 10*3/?L. The reference range was not used to interpret this result as normal/abnormal . GRAN MAT (NEUT) % 53.2 % (test code = 770-8) IMM GRAN % (test code 0.40 % = 4187359186) LYMPH % (test code = 31.6 % 736-9) MONO % (test code = 10.8 % 5905-5) EOS % (test code = 3.4 % 713-8) BASO % (test code = 0.6 % 706-2) GRAN MAT x10^3(ANC) 5.24 10*3/uL 1.88-7.09 (test code = 5471411167) IMM GRAN x10^3 (test 0.04 10*3/uL 0-0.06 code = 5147073390) LYMPH x10^3 (test code 3.11 10*3/uL 1.32-3.29 = 731-0) MONO x10^3 (test code 1.06 10*3/uL 0.33-0.92 H = 742-7) EOS x10^3 (test code = 0.33 10*3/uL 0.03-0.39 711-2) BASO x10^3 (test code 0.06 10*3/uL 0.01-0.07 = 704-7) Lab Interpretation Abnormal (test code = 45301-3) [facility] [id number] 03:13:00 Test Item Value Reference Range Interpretation Comments TROPONIN I (test 0.085 ng/mL See_Comment H [Automated code = 0072321509) message] The system which generated this result [...] ? Lab Interpretation Abnormal (test code = 03730-3) [facility] WorthGLYCOSYLATED HEMOGLOBIN (A1C)2020-11-04 21:45:00 Test Item Value Reference Range Interpretation Comments HGB A1C (test code = 5.2 % 4-6 4548-4) SHANIA (test code = SHANIA) %A1C (NGSP) Interpretation (ADA)4.8-5.6 ? ? Normal or (Non-Diabetic Range)5.7-6.4 ? ? Increased Risk (Pre-Diabetic)>6.5 ?Diabetes Indicated Lab Interpretation Normal (test code = 24345-7) [facility] WorthLIPID PANEL (99410)(TOTAL CHOLESTEROL, TRIGLYCERIDES, HDL)2020-11-04 14:39:00 Test Item Value Reference Range Interpretation Comments CHOL (test code = 139 mg/dL 120-200 5327063481) HDL (test code = 36 mg/dL >50 L 1313859471) HDLC RATIO (test code = See_Comment [Au tomated message] 0384612713) The system [employer] generated this result transmit maria c reference range : <=4.5. The refe rence range was not u sed to interpret th is result as normal/abnormal . TRIG (test code = 99 mg/dL 30-170 8716705699) LDL CHOL (test code = 83 mg/dL See_Comment [Auto mated message] 41339-1) The system [employer] generated this result transmit maria c reference range : <=160. The refe rence range was not u sed to interpret th is result as normal/abnormal . VLDL (test code = 20 mg/dL 5-60 3635179501) Lab Interpretation (test Abnormal code = 38388-9) [facility] WorthPOCT [id number] 14:29:00 Test Item Value Reference Range Interpretation Comments POCT Creatinine (test code = 1.7 mg/dL 0.5-1.1 H 8491584831) Lab Interpretation (test code = Abnormal 56915-9) [facility] WorthTR[facility]IN [id number] 05:41:00 Test Item Value Reference Range Interpretation Comments TROPONIN I (test 0.132 ng/mL See_Comment H [Automated code = 0892169479) message] The system which generated this result [...] ? Lab Interpretation Abnormal (test code = 55081-9) [facility] WorthN-TERMINAL [id number] 05:15:00 Test Item Value Reference Range Interpretation Comments NT-proBNP (test code 820 pg/mL See_Comment H [Autom ated = 3858801408) message] The system which generated this result transmitted reference range : <=450. The reference range was not used to interpret this result as normal/abnormal . SHANIA (test code = SHANIA) Biotin has been reported to cause a negative bias, interpret results relative to patient's use of biotin. Lab Interpretation Abnormal (test code = 55778-4) [facility] WorthURINALYSIS2021-02-18 05:06:00 Test Item Value Reference Range Interpretation Comments APPEARANCE (test code = Clear Clear 5482308297) COLOR (test code = Yellow Yellow 2462900586) PH (test code = 4.8-8.0 8036111597) SP GRAVITY (test code = 1.003-1.030 H 6611430442) GLU U QUAL (test code = Normal Normal 1254153171) BLOOD (test code = Negative Negative 7775468328) KETONES (test code = Negative Negative 4685300337) PROTEIN (test code = Negative Negative 2887-8) UROBILIN (test code = Normal Normal 9541914969) BILIRUBIN (test code = Negative Negative 6715664882) NITRITE (test code = Positive Negative A 4455284962) LEUK CHUY (test code = 75/uL Negative A 5365342600) RBC/HPF (test code = See_Comment [Autom ated message] 9262058685) The system [employer] generated this result transmitted ref erence range: 0 - 3 HP F. The reference range was not used to int erpret this result as normal/abnormal . WBC/HPF (test code = See_Comment H [Autom ated message] 2987206246) The system [employer] generated this result transmitted ref erence range: 0 - 5 HP F. The reference range was not used to int erpret this result as normal/abnormal . BACTERIA (test code = Few Negative A 8175162230) MUCOUS (test code = Slight Negative LPF A 1861721987) SQ EPITH (test code = <1 HPF 0751190176) HYAL CAST (test code = See_Comment H [Aut omated message] 7122663381) The system [employer] generated this result transmitted ref erence range: <=2 LPF. The reference range was not used to int erpret this result as normal/abnormal . Lab Interpretation (test Abnormal code = 38356-6) [facility] WorthCT STR[facility]KE ANG[facility]GRAM [id number] 01:07:06 No proximal large vessel occlusion or [...] ostium noted. Otherwise,no flow-limiting extra cranial stenosis identified.[facility] Worth[facility] STR[facility]KE ANG[facility] [id number] 01:07:06 No proximal large vessel occlusion or flow- limiting intracranial stenosisidentified. 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 Otherwise,no flow-limiting extra cranial stenosis identified. CT STROKE ANGIOGRAM HEAD, CT STROKE ANGIOGRAM NECK HISTORY: Female 75 years Acute Stroke Rad: please obtain POCT creatinineprior to CTA head/neck COMPARISON: None TECHNIQUE: . CT angiographicimages of the head and neck were obtainedafter [...] HEAD, CT STROKE ANGIOGRAM NECKHISTORY: Female 75 yearsAcute Stroke Rad: please obtain POCT creatinineprior to CTA head/neckCOMPARISON: NoneTECHNIQUE: . CTangiographic images of the head and neck were obtainedafter administration of IV contrast. Multiplanar reformats includingmaximum intensity projection images submitted for review.FINDINGS:CTA HEAD:The PICA origin is visualized on the left. Right PICA AICA variant issuspected. Trace atherosclerosis of the right V4 vertebral artery segmentwithout flow-limiting stenosis. The basilar artery is normal in c aliber.The superior cerebellar arteries are unremarkable. The posterior cerebralarteries are unremarkable. Atherosclerotic calcifications of the carotid siphons without flow-limitingstenosis. Mild fusiform ectasia of the right cavernous carotid segment. Thedistal cervical, petrous, cavernous and suprac linoid internal carotidarteries are otherwise unremarkable. Incidental note is made ofpneumatizationof the inferior aspect of the left anterior [...] origin fromthe innominate. Remainder of the subclavian arteriesdemonstrate normalcontrast opacification.Medialization of the proximal right and [...] ostium noted. 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 The reference range was not used to interpr et this result as normal/abnormal . SHANIA (test code = SHANIA) The [facility] patient population mean normal value for aPTT is 30 seconds. Lab Interpretation Normal (test code = 40366-6) [facility] WorthProthrombin Time / INR - Code [id number] 00:23:00 Test Item Value Reference Range Interpretation [...] tions. Lab Interpretation (test Normal code = 25310-7) [facility] WorthTroponin I - Code [id number] 00:17:00 Test Item Value Reference Range Interpretation Comments TROPONIN I (test 0.130 ng/mL See_Comment H [Automated code = 0712225495) message] The system which generated this result [...] ? Lab Interpretation Abnormal (test code = 39439-3) [facility] WorthCOVID-19 (ID NOW RAPID TESTING)2020-11-04 00:10:00 Test Item Value Reference Range Interpretation Comments SARS-CoV-2 Rapid ID NOW Not Detected Not Detected (test code = 62521-7) SHANIA (test code = SHANIA) ID NOW COVID-19 Assay is an isothermal nucleic acid amplification test intended for the qualitative detection of nucleic acid from SARS-CoV-2 viral RNA in nasopharyngeal (COMMUNICATIONS CONSULTANT) specimens. It is used under Emergency Use [...] indicated. Lab Interpretation Normal (test code = 27315-3) [facility] WorthBasi Metabolic Panel (NA, K, CL, CO2, Glucose, BUN, Creatinine, CA) - Code [id number] 00:06:00 Test Item Value Reference Range Interpretation Comments NA (test code = 137 mmol/L 135-145 5388052922) K (test code = 3.1 mmol/L 3.5-5 L 2926915016) CL (test code = 91 mmol/L 98-108 L 5565536530) CO2 TOTAL (test code = 36 mmol/L 23-31 H 8691505260) AGAP (test code = 2-16 2857214685) BUN (test code = 30 mg/dL 7-23 H 7516944195) GLUCOSE (test code = 109 mg/dL 70-110 7574708364) CREATININE (test code = 1.70 mg/dL 0.5-1.04 H 4346628897) CALCIUM (test code = 9.4 mg/dL 8.6-10.6 8111611485) eGFR Calculation mL/min/1.73m2 (Non-) (test code = 5360765976) eGFR Calculation mL/min/1.73m2 () (test code = 2189920413) SHANIA (test code = SHANIA) Association of [...] tests). Lab Interpretation Abnormal (test code = 74921-7) [facility] without Diff - Code [id number] 23:55:00 Test Item Value Reference Range Interpretation Comments WBC (test code = 6690-2) See_Comment H [A utomated message] The system [employer] generated this result transmit maria c reference range : 4.30 - 11.10 10*3/?L. The reference range was not used to interpret this result as normal/abnormal . RBC (test code = 789-8) See_Comment [Au tomated message] The system [employer] generated this result transmit maria c reference [...] See_Comment H [Au tomated message] The system [employer] generated this result transmit maria c reference range : 166 - 358 10*3/?L. The reference range was not used to interpret this result as normal/abnormal . MPV (test code = 10.4 fL 9.5-12.9 84598-0) RDW-CV (test code = 13.6 % 12-15.5 788-0) RDW-SD (test code = 45.1 fL 39-49.9 43591-3) NRBC x10^3 (test code = <0.01 See_Comment [Au tomated message] 9527827789) The system [employer] generated this result transmit maria c reference range : 10*3/?L. The reference range was not used to interpret this result as normal/abnormal . NRBC/100 WBC (test code See_Comment [Au tomated message] = 1627804032) The system [facility] generated this result transmit maria c reference range : 0.0 - 10.0 /100 WBC s. The reference r maría was not used to interpret this result as normal/abnormal . IPF % (test code = 8116611645) Lab Interpretation (test Abnormal code = 67870-8) [facility] WorthPO[facility] GLUCOSE (AUTOMATED)2020-11-03 23:36:00 Test Item Value Reference Range Interpretation Comments POCT GLU (test code = 7778096376) 123 mg/dL 70-110 H Lab Interpretation (test code = Abnormal 95242-3) [facility] WorthCHEM [id number] 00:06:00 Test Item Value Reference Range Interpretation Comments Ammonia (test code = Ammonia) 12.0 [facility]burgZpzvivcULBEZHIDMM5473-55-61 00:06:00 Test Item Value Reference Range Interpretation Comments D-Dimer (test code = D-Dimer) 3.11 [facility]2019-12-31 00:06:00 Test Item Value Reference Range Interpretation Comments Ammonia (test code = Ammonia) 12.0 [facility]burgAdfcswaPSTFLKULXG4901-70-59 00:06:00 Test Item Value Reference Range Interpretation Comments D-Dimer (test code = D-Dimer) 3.11 [facility]2019-12-31 00:06:00 Test Item Value Reference Range Interpretation Comments Ammonia (test code = Ammonia) 12.0 [facility] EdinburgNskaynkPIMXIOXEED0367-96-30 00:06:00 Test Item Value Reference Range Interpretation Comments D-Dimer (test code = D-Dimer) 3.11 [facility]2019-12-31 00:06:00 Test Item Value Reference Range Interpretation Comments Ammonia (test code = Ammonia) 12.0 [facility]inburgJzjqnrxUFOEFLYEQG8496-92-43 00:06:00 Test Item Value Reference Range Interpretation Comments D-Dimer (test code = D-Dimer) 3.11 [facility]2019-12-31 00:06:00 Test Item Value Reference Range Interpretation Comments Ammonia (test code = Ammonia) 12.0 [facility]burgIlumhcwTAOVGDTCXT2918-63-34 00:06:00 Test Item Value Reference Range Interpretation Comments D-Dimer (test code = D-Dimer) 3.11 [facility]2019-12-31 00:06:00 Test Item Value Reference Range Interpretation Comments Ammonia (test code = Ammonia) 12.0 [facility] EdinburgQchhenpGZAVBPRUAA7619-71-59 00:06:00 Test Item Value Reference Range Interpretation Comments D-Dimer (test code = D-Dimer) 3.11 [facility] [id number] 15:23:00 Test Item Value Reference Range Interpretation Comments Troponin-I (test code 0.16 See_Comment [Auto mated message] The = Troponin-I) system which g enerated this result transmit maria c reference range : <=0.40. The reference r maría was not used to interpr et this result as karthikeyan l/abnormal. [facility] [id number] 15:23:00 Test Item Value Reference Range Interpretation Comments Troponin-I (test code 0.16 See_Comment [Auto mated message] The = Troponin-I) system which g enerated this result transmit maria c reference range : <=0.40. The reference r maría was not used to interpr et this result as karthikeyan l/abnormal. [facility] HospitalInfused Medical TechnologyLongShine TechnologyHFTESER3941-67-54 15:23:00 Test Item Value Reference Range Interpretation Comments Troponin-I (test code 0.16 See_Comment [Auto mated message] The = Troponin-I) system which g enerated this result transmit maria c reference range : <=0.40. The reference r maría was not used to interpr et this result as karthikeyan l/abnormal. [facility] HospitalInfused Medical TechnologyLongShine TechnologyIIPUTKZ8671-56-97 15:23:00 Test Item Value Reference Range Interpretation Comments Troponin-I (test code 0.16 See_Comment [Auto mated message] The = Troponin-I) system which g enerated this result transmit maria c reference range : <=0.40. The reference r maría was not used to interpr et this result as karthikeyan l/abnormal. [facility] HospitalWeeleoEPTKDSX5995-75-99 15:23:00 Test Item Value Reference Range Interpretation Comments Troponin-I (test code 0.16 See_Comment [Auto mated message] The = Troponin-I) system which g enerated this result transmit maria c reference range : <=0.40. The reference r maría was not used to interpr et this result as karthikeyan l/abnormal. [facility] Campusu[facility]sit2019-[facility] 15:23:00 Test Item Value Reference Range Interpretation Comments Troponin-I (test code 0.16 See_Comment [Auto mated message] The = Troponin-I) system which g enerated this result transmit maria c reference range : <=0.40. The reference r maría was not used to interpr et this result as karthikeyan l/abnormal. [facility] CampusannBACTERIAL - [id number] 12:33:00 Test Item Value Reference Range Interpretation Comments Source Strep (test code Urine *NA*(09/15/19 = Source Strep) 6:33 AM) [facility] CampusannBACTERIAL - [id number] 12:33:00 Test Item Value Reference Range Interpretation Comments Strep pneumoniae Ag Negative (09/15/19 (test code = Strep 6:33 AM) pneumoniae Ag) [facility] [id number] 12:33:00 Test Item Value Reference Range Interpretation Comments Source Respiratory Nasophrngl Swb Panel PCR (test code = *NA*(09/15/19 6:33 AM) Source Respiratory Panel PCR) [facility]2019-12-30 12:33:00 Test Item Value Reference Range Interpretation Comments Influenza A PCR (test Negative *NA*(09/15/19 code = Influenza A PCR) 6:33 AM) [facility]2019-12-30 12:33:00 Test Item Value Reference Range Interpretation Comments Influenza B PCR (test Negative *NA*(09/15/19 code = Influenza B PCR) 6:33 AM) [facility] [id number] 12:33:00 Test Item Value Reference Range Interpretation Comments RSV PCR (test code = Negative *NA*(09/15/19 RSV PCR) 6:33 AM) [facility] HospitalBACT[facility] - [id number] 12:33:00 Test Item Value Reference Range Interpretation Comments Source Strep (test code Urine *NA*(09/15/19 = Source Strep) 6:33 AM) [facility] CampusannBACTERIAL - [id number] 12:33:00 Test Item Value Reference Range Interpretation Comments Strep pneumoniae Ag Negative (09/15/19 (test code = Strep 6:33 AM) pneumoniae Ag) [facility] [id number] 12:33:00 Test Item Value Reference Range Interpretation Comments Source Respiratory Nasophrngl Swb Panel PCR (test code = *NA*(09/15/19 6:33 AM) Source Respiratory Panel PCR) [facility] [id number] 12:33:00 Test Item Value Reference Range Interpretation Comments Influenza A PCR (test Negative *NA*(09/15/19 code = Influenza A PCR) 6:33 AM) [facility] [id number] 12:33:00 Test Item Value Reference Range Interpretation Comments Influenza B PCR (test Negative *NA*(09/15/19 code = Influenza B PCR) 6:33 AM) [facility] [id number] 12:33:00 Test Item Value Reference Range Interpretation Comments RSV PCR (test code = Negative *NA*(09/15/19 RSV PCR) 6:33 AM) [facility] HospitalBACTERIAL - [id number] 12:33:00 Test Item Value Reference Range Interpretation Comments Source Strep (test code Urine *NA*(09/15/19 = Source Strep) 6:33 AM) [facility] HospitalBACTERIAL - [id number] 12:33:00 Test Item Value Reference Range Interpretation Comments Strep pneumoniae Ag Negative (09/15/19 (test code = Strep 6:33 AM) pneumoniae Ag) [facility] [id number] 12:33:00 Test Item Value Reference Range Interpretation Comments Source Respiratory Nasophrngl Swb Panel PCR (test code = *NA*(09/15/19 6:33 AM) Source Respiratory Panel PCR) [facility]2019-12-30 12:33:00 Test Item Value Reference Range Interpretation Comments Influenza A PCR (test Negative *NA*(09/15/19 code = Influenza A PCR) 6:33 AM) [facility] [id number] 12:33:00 Test Item Value Reference Range Interpretation Comments Influenza B PCR (test Negative *NA*(09/15/19 code = Influenza B PCR) 6:33 AM) [facility]2019-12-30 12:33:00 Test Item Value Reference Range Interpretation Comments RSV PCR (test code = Negative *NA*(09/15/19 RSV PCR) 6:33 AM) [facility] CampusannBACTERIAL - [id number] 12:33:00 Test Item Value Reference Range Interpretation Comments Source Strep (test code Urine *NA*(09/15/19 = Source Strep) 6:33 AM) [facility] CampusannBACTERIAL - [id number] 12:33:00 Test Item Value Reference Range Interpretation Comments Strep pneumoniae Ag Negative (09/15/19 (test code = Strep 6:33 AM) pneumoniae Ag) [facility] [id number] 12:33:00 Test Item Value Reference Range Interpretation Comments Source Respiratory Nasophrngl Swb Panel PCR (test code = *NA*(09/15/19 6:33 AM) Source Respiratory Panel PCR) [facility] [id number] 12:33:00 Test Item Value Reference Range Interpretation Comments Influenza A PCR (test Negative *NA*(09/15/19 code = Influenza A PCR) 6:33 AM) [facility] [id number] 12:33:00 Test Item Value Reference Range Interpretation Comments Influenza B PCR (test Negative *NA*(09/15/19 code = Influenza B PCR) 6:33 AM) [facility] [id number] 12:33:00 Test Item Value Reference Range Interpretation Comments RSV PCR (test code = Negative *NA*(09/15/19 RSV PCR) 6:33 AM) [facility] [id number] 12:33:00 Test Item Value Reference Range Interpretation Comments Source Strep (test code Urine *NA*(09/15/19 = Source Strep) 6:33 AM) [facility] [id number] 12:33:00 Test Item Value Reference Range Interpretation Comments Strep pneumoniae Ag Negative (09/15/19 (test code = Strep 6:33 AM) pneumoniae Ag) [facility] [id number] 12:33:00 Test Item Value Reference Range Interpretation Comments Source Respiratory Nasophrngl Swb Panel PCR (test code = *NA*(09/15/19 6:33 AM) Source Respiratory Panel PCR) [facility] [id number] 12:33:00 Test Item Value Reference Range Interpretation Comments Influenza A PCR (test Negative *NA*(09/15/19 code = Influenza A PCR) 6:33 AM) [facility] [id number] 12:33:00 Test Item Value Reference Range Interpretation Comments Influenza B PCR (test Negative *NA*(09/15/19 code = Influenza B PCR) 6:33 AM) [facility] [id number] 12:33:00 Test Item Value Reference Range Interpretation Comments RSV PCR (test code = Negative *NA*(09/15/19 RSV PCR) 6:33 AM) [facility] [id number] 12:33:00 Test Item Value Reference Range Interpretation Comments Source Strep (test code Urine *NA*(09/15/19 = Source Strep) 6:33 AM) [facility] [id number] 12:33:00 Test Item Value Reference Range Interpretation Comments Strep pneumoniae Ag Negative (09/15/19 (test code = Strep 6:33 AM) pneumoniae Ag) [facility] [id number] 12:33:00 Test Item Value Reference Range Interpretation Comments Source Respiratory Nasophrngl Swb Panel PCR (test code = *NA*(09/15/19 6:33 AM) Source Respiratory Panel PCR) [facility] [id number] 12:33:00 Test Item Value Reference Range Interpretation Comments Influenza A PCR (test Negative *NA*(09/15/19 code = Influenza A PCR) 6:33 AM) [facility] [id number] 12:33:00 Test Item Value Reference Range Interpretation Comments Influenza B PCR (test Negative *NA*(09/15/19 code = Influenza B PCR) 6:33 AM) [facility] [id number] 12:33:00 Test Item Value Reference Range Interpretation Comments RSV PCR (test code = Negative *NA*(09/15/19 RSV PCR) 6:33 AM) [facility] [id number] 10:31:00 Test Item Value Reference Range Interpretation Comments Vitamin B12 Lvl (test code = Vitamin [phone] B12 Lvl) [facility] [id number] 10:31:00 Test Item Value Reference Range Interpretation Comments Troponin-I (test code 0.18 See_Comment [Auto mated message] The = Troponin-I) system which g enerated this result transmit maria c reference range : <=0.40. The reference r maría was not used to interpr et this result as karthikeyan l/abnormal. [facility]2019-12-30 10:31:00 Test Item Value Reference Range Interpretation Comments Phosphorus (test code = Phosphorus) 4.4 2.5-4.5 [facility]2019-12-30 10:31:00 Test Item Value Reference Range Interpretation Comments Magnesium Lvl (test code = Magnesium 2.2 1.8-2.4 Lvl) [facility]2019-12-30 10:31:00 Test Item Value Reference Range Interpretation Comments Glucose Lvl (test code = Glucose Lvl) 146 70-99 [facility]2019-12-30 10:31:00 Test Item Value Reference Range Interpretation Comments BUN (test code = BUN) 14 7-22 [facility]2019-12-30 10:31:00 Test Item Value Reference Range Interpretation Comments Creatinine Lvl (test code = Creatinine 0.94 0.50-1.40 Lvl) [facility]2019-12-30 10:31:00 Test Item Value Reference Range Interpretation Comments Sodium Lvl (test code = Sodium Lvl) 140 135-145 [facility]2019-12-30 10:31:00 Test Item Value Reference Range Interpretation Comments Potassium Lvl (test code = Potassium 3.9 3.5-5.1 Lvl) [facility]2019-12-30 10:31:00 Test Item Value Reference Range Interpretation Comments Chloride Lvl (test code = Chloride Lvl) 103 95-109 [facility]2019-12-30 10:31:00 Test Item Value Reference Range Interpretation Comments CO2 (test code = CO2) 28 24-32 [facility]2019-12-30 10:31:00 Test Item Value Reference Range Interpretation Comments Calcium Lvl (test code = Calcium Lvl) 9.2 8.5-10.5 [facility]2019-12-30 10:31:00 Test Item Value Reference Range Interpretation Comments eGFR (test code = eGFR) 59 [facility]2019-12-30 10:31:00 Test Item Value Reference Range Interpretation Comments AGAP (test code = AGAP) 12.9 10.0-20.0 [facility]2019-12-30 10:31:00 Test Item Value Reference Range Interpretation Comments Procalcitonin Lvl (test 3.83 See_Comment [Au tomated message] code = Procalcitonin Lvl) e system which generated this result transmitted ref erence range: <=0.10. The reference range was not used to interpr et this result as normal/abnormal . [facility]2019-12-30 10:31:00 Test Item Value Reference Range Interpretation Comments Lactic Acid Lvl (test code = Lactic 1.5 0.5-2.2 Acid Lvl) [facility]FyeugwpOQOCMPYJTW6487-08-58 10:31:00 Test Item Value Reference Range Interpretation Comments Segs (test code = Segs) 91.2 45.0-75.0 [facility]burgGakyuodRSPTKYFSYY7724-23-86 10:31:00 Test Item Value Reference Range Interpretation Comments Lymphocytes (test code = Lymphocytes) 7.5 20.0-40.0 [id number] 10:31:00 Test Item Value Reference Range Interpretation Comments Monocytes (test code = Monocytes) 1.2 2.0-12.0 [facility]burgLchgpqoXQHQEZVRKS8880-80-26 10:31:00 Test Item Value Reference Range Interpretation Comments Basophils (test code = 0.1 See_Comment [Aut omated message] The Basophils) system which ge nerated this result tra nsmitted reference range : <=1.0. The reference r maría was not used to int erpret this result as normal/abnormal . [facility]burgLcdzjthECWFQJIMRV5467-97-28 10:31:00 Test Item Value Reference Range Interpretation Comments Neutrophils # (test code = Neutrophils 9.4 1.5-8.1 #) [facility]burgHxmrrdwFOOQPIGJRD1242-96-42 10:31:00 Test Item Value Reference Range Interpretation Comments Lymphocytes # (test code = Lymphocytes 0.8 1.0-5.5 #) [facility]burgRfmhtqyPPNSGFRBKB0547-49-11 10:31:00 Test Item Value Reference Range Interpretation Comments Monocytes # (test code 0.1 See_Comment [Aut omated message] The = Monocytes #) system which generated this result tra nsmitted reference range : <=0.8. The reference r maría was not used to int erpret this result as normal/abnormal . [facility] HospitalUkhxdfcQSIXMHTPHI2191-03-64 10:31:00 Test Item Value Reference Range Interpretation Comments WBC (test code = WBC) 10.3 3.7-10.4 [facility]burgSndbnibZIPIZYMJCN7858-54-02 10:31:00 Test Item Value Reference Range Interpretation Comments RBC (test code = RBC) 4.13 4.20-5.40 [facility]burgFrcbjulCTJKKDGBNJ7479-65-39 10:31:00 Test Item Value Reference Range Interpretation Comments Hgb (test code = Hgb) 12.8 12.0-16.0 [facility]burgIgiqrcdXMHSIFRJTR9371-59-55 10:31:00 Test Item Value Reference Range Interpretation Comments Hct (test code = Hct) 38.6 36.0-48.0 [facility]burgHftzpikUWNIYQEFHH3805-58-23 10:31:00 Test Item Value Reference Range Interpretation Comments MCV (test code = MCV) 93.7 80.0-98.0 [facility] [id number] 10:31:00 Test Item Value Reference Range Interpretation Comments Vitamin B12 Lvl (test code = Vitamin 102 537-6205 B12 Lvl) [facility]burgSkfswdzUIZDXKBBEY5458-82-36 10:31:00 Test Item Value Reference Range Interpretation Comments MCH (test code = MCH) 31.0 pg 27.0-31.0 [facility] [id number] 10:31:00 Test Item Value Reference Range Interpretation Comments Troponin-I (test code 0.18 See_Comment [Auto mated message] The = Troponin-I) system which g enerated this result transmit maria c reference range : <=0.40. The reference r maría was not used to interpr et this result as karthikeyan l/abnormal. [facility]bu[id number] 10:31:00 Test Item Value Reference Range Interpretation Comments MCHC (test code = MCHC) 33.1 32.0-36.0 [facility]2019-12-30 10:31:00 Test Item Value Reference Range Interpretation Comments Phosphorus (test code = Phosphorus) 4.4 2.5-4.5 [facility]burgPzdjpfvATEXPILWEP2318-80-74 10:31:00 Test Item Value Reference Range Interpretation Comments RDW (test code = RDW) 15.4 11.5-14.5 [facility]2019-12-30 10:31:00 Test Item Value Reference Range Interpretation Comments Magnesium Lvl (test code = Magnesium 2.2 1.8-2.4 Lvl) [facility]burgLyzztobAZHLARRKWP6518-70-04 10:31:00 Test Item Value Reference Range Interpretation Comments Platelet (test code = Platelet) 388 133-450 [facility]inburgWhvymuzKBWCOIEEVI1821-22-47 10:31:00 Test Item Value Reference Range Interpretation Comments MPV (test code = MPV) 8.3 7.4-10.4 [facility]2019-12-30 10:31:00 Test Item Value Reference Range Interpretation Comments Glucose Lvl (test code = Glucose Lvl) 146 70-99 [facility]HxnqmcaGCLIVK9924-54-77 10:31:00 Test Item Value Reference Range Interpretation Comments CHD Risk (test code = CHD Risk) 2.87 1 3.90-5.80 [facility]2019-12-30 10:31:00 Test Item Value Reference Range Interpretation Comments BUN (test code = BUN) 14 7-22 [facility]woodPemwgylFJGWHH4222-47-49 10:31:00 Test Item Value Reference Range Interpretation Comments Trig (test code = Trig) 52 [facility]2019-12-30 10:31:00 Test Item Value Reference Range Interpretation Comments Creatinine Lvl (test code = Creatinine 0.94 0.50-1.40 Lvl) [facility]woodNrfralaBLWNBS9068-25-71 10:31:00 Test Item Value Reference Range Interpretation Comments Chol (test code = Chol) 172 [facility]2019-12-30 10:31:00 Test Item Value Reference Range Interpretation Comments Sodium Lvl (test code = Sodium Lvl) 140 135-145 [facility]woodXrwxwjnVHBJMR8731-36-37 10:31:00 Test Item Value Reference Range Interpretation Comments HDL (test code = HDL) 60 [facility]2019-12-30 10:31:00 Test Item Value Reference Range Interpretation Comments Potassium Lvl (test code = Potassium 3.9 3.5-5.1 Lvl) [facility]woodDtddsyhJCIVSF2796-08-26 10:31:00 Test Item Value Reference Range Interpretation Comments LDL (Calculated) (test code = LDL 102 (Calculated)) [facility]2019-12-30 10:31:00 Test Item Value Reference Range Interpretation Comments Chloride Lvl (test code = Chloride Lvl) 103 95-109 [facility] HospitalYbgbfyqYFMVJO1612-49-61 10:31:00 Test Item Value Reference Range Interpretation Comments VLDL (test code = VLDL) 10 1 [facility]2019-12-30 10:31:00 Test Item Value Reference Range Interpretation Comments CO2 (test code = CO2) 28 24-32 [facility] [id number] 10:31:00 Test Item Value Reference Range Interpretation Comments Hgb A1C (test code = Hgb A1C) 4.9 [facility]2019-12-30 10:31:00 Test Item Value Reference Range Interpretation Comments Calcium Lvl (test code = Calcium Lvl) 9.2 8.5-10.5 [facility]2019-12-30 10:31:00 Test Item Value Reference Range Interpretation Comments eGFR (test code = eGFR) 59 [facility]2019-12-30 10:31:00 Test Item Value Reference Range Interpretation Comments AGAP (test code = AGAP) 12.9 10.0-20.0 [facility]2019-12-30 10:31:00 Test Item Value Reference Range Interpretation Comments Procalcitonin Lvl (test 3.83 See_Comment [Au tomated message] code = Procalcitonin Lvl) Th e system which generated this result transmitted ref erence range: <=0.10. The reference range was not used to interpr et this result as normal/abnormal . [facility] [id number] 10:31:00 Test Item Value Reference Range Interpretation Comments Lactic Acid Lvl (test code = Lactic 1.5 0.5-2.2 Acid Lvl) [facility] HospitalVmjqvwoGDZUCJBNVS4252-60-30 10:31:00 Test Item Value Reference Range Interpretation Comments Segs (test code = Segs) 91.2 45.0-75.0 [facility] HospitalGtvtjsaURQYGAFQLR7729-82-45 10:31:00 Test Item Value Reference Range Interpretation Comments Lymphocytes (test code = Lymphocytes) 7.5 20.0-40.0 [facility] HospitalIjqjawmPRMNYEJXRQ0976-15-61 10:31:00 Test Item Value Reference Range Interpretation Comments Monocytes (test code = Monocytes) 1.2 2.0-12.0 [facility]burgGiskxxiEOSKCQKLJQ9466-09-30 10:31:00 Test Item Value Reference Range Interpretation Comments Basophils (test code = 0.1 See_Comment [Aut omated message] The Basophils) system which ge nerated this result tra nsmitted reference range : <=1.0. The reference r maría was not used to int erpret this result as normal/abnormal . [facility]burgApfazeqJDUBLLFGXB1466-91-52 10:31:00 Test Item Value Reference Range Interpretation Comments Neutrophils # (test code = Neutrophils 9.4 1.5-8.1 #) [facility]burgRsbnbqqVESNQQABPB1147-36-64 10:31:00 Test Item Value Reference Range Interpretation Comments Lymphocytes # (test code = Lymphocytes 0.8 1.0-5.5 #) [facility]burgGdxgmewHNCBNPGDFC8114-20-68 10:31:00 Test Item Value Reference Range Interpretation Comments Monocytes # (test code 0.1 See_Comment [Aut omated message] The = Monocytes #) system which generated this result tra nsmitted reference range : <=0.8. The reference r maría was not used to int erpret this result as normal/abnormal . [facility]burgEwdwtcnJRCWIAOLRQ3392-43-92 10:31:00 Test Item Value Reference Range Interpretation Comments WBC (test code = WBC) 10.3 3.7-10.4 [facility]burgChopvjfZNRYWXBMPM8072-19-19 10:31:00 Test Item Value Reference Range Interpretation Comments RBC (test code = RBC) 4.13 4.20-5.40 [facility]burgIrlyuidSCAKBYWDSQ9370-66-35 10:31:00 Test Item Value Reference Range Interpretation Comments Hgb (test code = Hgb) 12.8 12.0-16.0 [facility]burgGehtenwSCYHSREUVU6246-72-87 10:31:00 Test Item Value Reference Range Interpretation Comments Hct (test code = Hct) 38.6 36.0-48.0 [facility]burgKfqpqekDFSDELUBUM7517-22-64 10:31:00 Test Item Value Reference Range Interpretation Comments MCV (test code = MCV) 93.7 80.0-98.0 [facility]burgRxquoszMQGYLNYABS0704-25-52 10:31:00 Test Item Value Reference Range Interpretation Comments MCH (test code = MCH) 31.0 pg 27.0-31.0 [facility]burgJwiibfzDWYYYTKMEV0355-27-61 10:31:00 Test Item Value Reference Range Interpretation Comments MCHC (test code = MCHC) 33.1 32.0-36.0 [facility]burgSmoddtuIIBCNLVUMJ1495-89-80 10:31:00 Test Item Value Reference Range Interpretation Comments RDW (test code = RDW) 15.4 11.5-14.5 [facility] HospitalQnrigtaVVIKAIVAPZ0123-99-25 10:31:00 Test Item Value Reference Range Interpretation Comments Platelet (test code = Platelet) 388 133-450 [facility]burgPzxadinDKCTYYYELS2261-48-94 10:31:00 Test Item Value Reference Range Interpretation Comments MPV (test code = MPV) 8.3 7.4-10.4 [facility]woodIryoaqaKFZKMQ0714-70-72 10:31:00 Test Item Value Reference Range Interpretation Comments CHD Risk (test code = CHD Risk) 2.87 1 3.90-5.80 [facility]woodMrdapvoOOOQKA6486-15-86 10:31:00 Test Item Value Reference Range Interpretation Comments Trig (test code = Trig) 52 [facility]woodZsbvgzpEDFAFA0485-85-26 10:31:00 Test Item Value Reference Range Interpretation Comments Chol (test code = Chol) 172 [facility] HospitalXlwfxuoBKJDBI2901-16-79 10:31:00 Test Item Value Reference Range Interpretation Comments HDL (test code = HDL) 60 [facility] HospitalSgimraaBLQWDY7213-24-29 10:31:00 Test Item Value Reference Range Interpretation Comments LDL (Calculated) (test code = LDL 102 (Calculated)) [facility] HospitalSrckclqMVPHDU7271-51-56 10:31:00 Test Item Value Reference Range Interpretation Comments VLDL (test code = VLDL) 10 1 [facility] IIDSLJNJG9387-52-54 10:31:00 Test Item Value Reference Range Interpretation Comments Hgb A1C (test code = Hgb A1C) 4.9 [facility] HospitalUnqfptiYNCIEEUVSA1599-31-31 10:31:00 Test Item Value Reference Range Interpretation Comments RBC (test code = RBC) 4.13 4.20-5.40 [facility]burgTzkswcsBWGIZTOTON8305-40-78 10:31:00 Test Item Value Reference Range Interpretation Comments Hgb (test code = Hgb) 12.8 12.0-16.0 [facility]burgHsxcpyaDJYMWOJCWH9217-51-83 10:31:00 Test Item Value Reference Range Interpretation Comments Hct (test code = Hct) 38.6 36.0-48.0 [facility] HospitalCfahzsbKKKFVRZDMC8248-90-24 10:31:00 Test Item Value Reference Range Interpretation Comments MCV (test code = MCV) 93.7 80.0-98.0 [facility]burgFuwwdpeXHJLLGUCNE4761-65-50 10:31:00 Test Item Value Reference Range Interpretation Comments MCH (test code = MCH) 31.0 pg 27.0-31.0 [facility]burgKzsmlxpFJGDUFUJHL2035-12-88 10:31:00 Test Item Value Reference Range Interpretation Comments MCHC (test code = MCHC) 33.1 32.0-36.0 [facility]burgZwtnvidFNINCSQAQR1593-81-49 10:31:00 Test Item Value Reference Range Interpretation Comments RDW (test code = RDW) 15.4 11.5-14.5 [facility]burgZxxcjvqMTGWHOMUOD1606-50-71 10:31:00 Test Item Value Reference Range Interpretation Comments Platelet (test code = Platelet) 388 133-450 [facility]burgFeguqnqUSPQOEEAZA3335-80-44 10:31:00 Test Item Value Reference Range Interpretation Comments MPV (test code = MPV) 8.3 7.4-10.4 [facility] HospitalCdmucsmPASBGF4814-36-17 10:31:00 Test Item Value Reference Range Interpretation Comments CHD Risk (test code = CHD Risk) 2.87 1 3.90-5.80 [facility] HospitalVqtswfnBHPNMV6684-23-08 10:31:00 Test Item Value Reference Range Interpretation Comments Trig (test code = Trig) 52 [facility]woodPrqezoeGLZPFR5345-09-71 10:31:00 Test Item Value Reference Range Interpretation Comments Chol (test code = Chol) 172 [facility] HospitalSrrmnbhHATTSB6118-69-54 10:31:00 Test Item Value Reference Range Interpretation Comments HDL (test code = HDL) 60 [facility] HospitalPxxbifsBYFBNN1465-67-72 10:31:00 Test Item Value Reference Range Interpretation Comments LDL (Calculated) (test code = LDL 102 (Calculated)) [facility] HospitalQjzwflvBKPMVA0873-23-97 10:31:00 Test Item Value Reference Range Interpretation Comments VLDL (test code = VLDL) 10 1 [facility] CLRJYWOIF7403-30-97 10:31:00 Test Item Value Reference Range Interpretation Comments Hgb A1C (test code = Hgb A1C) 4.9 [facility] ZLWQG2796-35-33 10:31:00 Test Item Value Reference Range Interpretation Comments Vitamin B12 Lvl (test code = Vitamin [phone] B12 Lvl) [facility] SFRVYGT3553-49-79 10:31:00 Test Item Value Reference Range Interpretation Comments Troponin-I (test code 0.18 See_Comment [Auto mated message] The = Troponin-I) system which g enerated this result transmit maria c reference range : <=0.40. The reference r maría was not used to interpr et this result as karthikeyan l/abnormal. [facility] [id number] 10:31:00 Test Item Value Reference Range Interpretation Comments Phosphorus (test code = Phosphorus) 4.4 2.5-4.5 [facility]2019-12-30 10:31:00 Test Item Value Reference Range Interpretation Comments Magnesium Lvl (test code = Magnesium 2.2 1.8-2.4 Lvl) [facility]2019-12-30 10:31:00 Test Item Value Reference Range Interpretation Comments Glucose Lvl (test code = Glucose Lvl) 146 70-99 [facility]2019-12-30 10:31:00 Test Item Value Reference Range Interpretation Comments BUN (test code = BUN) 14 7-22 [facility]2019-12-30 10:31:00 Test Item Value Reference Range Interpretation Comments Creatinine Lvl (test code = Creatinine 0.94 0.50-1.40 Lvl) [facility]2019-12-30 10:31:00 Test Item Value Reference Range Interpretation Comments Sodium Lvl (test code = Sodium Lvl) 140 135-145 [facility]2019-12-30 10:31:00 Test Item Value Reference Range Interpretation Comments Potassium Lvl (test code = Potassium 3.9 3.5-5.1 Lvl) [facility]2019-12-30 10:31:00 Test Item Value Reference Range Interpretation Comments Chloride Lvl (test code = Chloride Lvl) 103 95-109 [facility]2019-12-30 10:31:00 Test Item Value Reference Range Interpretation Comments CO2 (test code = CO2) 28 24-32 [facility]2019-12-30 10:31:00 Test Item Value Reference Range Interpretation Comments Calcium Lvl (test code = Calcium Lvl) 9.2 8.5-10.5 [facility]2019-12-30 10:31:00 Test Item Value Reference Range Interpretation Comments eGFR (test code = eGFR) 59 [facility]2019-12-30 10:31:00 Test Item Value Reference Range Interpretation Comments AGAP (test code = AGAP) 12.9 10.0-20.0 [facility]2019-12-30 10:31:00 Test Item Value Reference Range Interpretation Comments Procalcitonin Lvl (test 3.83 See_Comment [Au tomated message] code = Procalcitonin Lvl) Th e system which generated this result transmitted ref erence range: <=0.10. The reference range was not used to interpr et this result as normal/abnormal . [facility]2019-12-30 10:31:00 Test Item Value Reference Range Interpretation Comments Lactic Acid Lvl (test code = Lactic 1.5 0.5-2.2 Acid Lvl) [facility]burgHswauiuBFJEUOBFKX4855-64-91 10:31:00 Test Item Value Reference Range Interpretation Comments Segs (test code = Segs) 91.2 45.0-75.0 [facility]burgCwadktuPNVXODILDM7294-38-80 10:31:00 Test Item Value Reference Range Interpretation Comments Lymphocytes (test code = Lymphocytes) 7.5 20.0-40.0 [facility]burgAvauwvkTGIHPAUQGF6327-13-13 10:31:00 Test Item Value Reference Range Interpretation Comments Monocytes (test code = Monocytes) 1.2 2.0-12.0 [facility]inburgJxenrlrWGLCYKJCSI0015-97-22 10:31:00 Test Item Value Reference Range Interpretation Comments Basophils (test code = 0.1 See_Comment [Aut omated message] The Basophils) system which ge nerated this result tra nsmitted reference range : <=1.0. The reference r maría was not used to int erpret this result as normal/abnormal . [facility]inburgEhcvraqHVRJUKKWDP2821-72-99 10:31:00 Test Item Value Reference Range Interpretation Comments Neutrophils # (test code = Neutrophils 9.4 1.5-8.1 #) [facility] [id number] 10:31:00 Test Item Value Reference Range Interpretation Comments Lymphocytes # (test code = Lymphocytes 0.8 1.0-5.5 #) [facility] [place]burgSihwpxtJOBUMNOOIF8615-39-81 10:31:00 Test Item Value Reference Range Interpretation Comments Monocytes # (test code 0.1 See_Comment [Aut omated message] The = Monocytes #) system which generated this result tra nsmitted reference range : <=0.8. The reference r maría was not used to int erpret this result as normal/abnormal . [facility] [place]inburgRivmgjoHITHTXVAFV3778-42-28 10:31:00 Test Item Value Reference Range Interpretation Comments WBC (test code = WBC) 10.3 3.7-10.4 [facility] [place]burgCjmsvngRTETEAJRTY5872-37-42 10:31:00 Test Item Value Reference Range Interpretation Comments RBC (test code = RBC) 4.13 4.20-5.40 [facility] [place]burgUdoiqtpTNBTRBWLVJ5105-27-85 10:31:00 Test Item Value Reference Range Interpretation Comments Hgb (test code = Hgb) 12.8 12.0-16.0 [facility] [place]inburgZeoezoaMWULDFBYUF8210-63-12 10:31:00 Test Item Value Reference Range Interpretation Comments Hct (test code = Hct) 38.6 36.0-48.0 [facility] [place]inburgJlqqlnxWEIRANYCYG6086-15-74 10:31:00 Test Item Value Reference Range Interpretation Comments MCV (test code = MCV) 93.7 80.0-98.0 [facility] [place]XfvwsrdVYDGADFPWS9769-36-02 10:31:00 Test Item Value Reference Range Interpretation Comments MCH (test code = MCH) 31.0 pg 27.0-31.0 [facility] [place]inburgLqvecekMCGNZEUBEY7525-00-69 10:31:00 Test Item Value Reference Range Interpretation Comments MCHC (test code = MCHC) 33.1 32.0-36.0 [facility] Ed[place]burgIbufxqoXUJJRIUXXI4884-74-72 10:31:00 Test Item Value Reference Range Interpretation Comments RDW (test code = RDW) 15.4 11.5-14.5 [facility] [place]burgTnljobvHGMHQIEPXH5068-98-59 10:31:00 Test Item Value Reference Range Interpretation Comments Platelet (test code = Platelet) 388 133-450 [facility] [place]burgGmwsmhwKOIZEZXHJP1772-85-10 10:31:00 Test Item Value Reference Range Interpretation Comments MPV (test code = MPV) 8.3 7.4-10.4 [facility] CampusXlhhjnbYBMZPC3792-33-57 10:31:00 Test Item Value Reference Range Interpretation Comments CHD Risk (test code = CHD Risk) 2.87 1 3.90-5.80 [facility]VbldbbrUTKXHH3725-18-68 10:31:00 Test Item Value Reference Range Interpretation Comments Trig (test code = Trig) 52 [facility] CampusVnnqwswFHWFTB1924-78-95 10:31:00 Test Item Value Reference Range Interpretation Comments Chol (test code = Chol) 172 [facility] CampusWpjshfuZZAASV8489-74-09 10:31:00 Test Item Value Reference Range Interpretation Comments HDL (test code = HDL) 60 [facility] CampusOdbqvlwACQAMH9541-01-55 10:31:00 Test Item Value Reference Range Interpretation Comments LDL (Calculated) (test code = LDL 102 (Calculated)) [facility] HospitalNovtabkYJMETZ9913-29-89 10:31:00 Test Item Value Reference Range Interpretation Comments VLDL (test code = VLDL) 10 1 [facility] HospitalSPECIAL LSFFBWEUF9654-25-50 10:31:00 Test Item Value Reference Range Interpretation Comments Hgb A1C (test code = Hgb A1C) 4.9 [facility] [id number] 10:31:00 Test Item Value Reference Range Interpretation Comments Vitamin B12 Lvl (test code = Vitamin 988 034-2043 B12 Lvl) [facility]CARD[facility]AC [id number] 10:31:00 Test Item Value Reference Range Interpretation Comments Troponin-I (test code 0.18 See_Comment [Auto mated message] The = Troponin-I) system which g enerated this result transmit maria c reference range : <=0.40. The reference r maría was not used to interpr et this result as karthikeyan l/abnormal. [facility] HospitalCHEM [id number] 10:31:00 Test Item Value Reference Range Interpretation Comments Phosphorus (test code = Phosphorus) 4.4 2.5-4.5 [facility]CHEM [id number] 10:31:00 Test Item Value Reference Range Interpretation Comments Magnesium Lvl (test code = Magnesium 2.2 1.8-2.4 Lvl) [facility]CHE[facility] [id number] 10:31:00 Test Item Value Reference Range Interpretation Comments Glucose Lvl (test code = Glucose Lvl) 146 70-99 [facility]2019-12-30 10:31:00 Test Item Value Reference Range Interpretation Comments BUN (test code = BUN) 14 7-22 [facility]2019-12-30 10:31:00 Test Item Value Reference Range Interpretation Comments Creatinine Lvl (test code = Creatinine 0.94 0.50-1.40 Lvl) [facility]2019-12-30 10:31:00 Test Item Value Reference Range Interpretation Comments Sodium Lvl (test code = Sodium Lvl) 140 135-145 [facility]2019-12-30 10:31:00 Test Item Value Reference Range Interpretation Comments Potassium Lvl (test code = Potassium 3.9 3.5-5.1 Lvl) [facility]2019-12-30 10:31:00 Test Item Value Reference Range Interpretation Comments Chloride Lvl (test code = Chloride Lvl) 103 95-109 [facility]2019-12-30 10:31:00 Test Item Value Reference Range Interpretation Comments CO2 (test code = CO2) 28 24-32 [facility]2019-12-30 10:31:00 Test Item Value Reference Range Interpretation Comments Calcium Lvl (test code = Calcium Lvl) 9.2 8.5-10.5 [facility]2019-12-30 10:31:00 Test Item Value Reference Range Interpretation Comments eGFR (test code = eGFR) 59 [facility]2019-12-30 10:31:00 Test Item Value Reference Range Interpretation Comments AGAP (test code = AGAP) 12.9 10.0-20.0 [facility]2019-12-30 10:31:00 Test Item Value Reference Range Interpretation Comments Procalcitonin Lvl (test 3.83 See_Comment [Au tomated message] code = Procalcitonin Lvl) Th e system which generated this result transmitted ref erence range: <=0.10. The reference range was not used to interpr et this result as normal/abnormal . [facility]2019-12-30 10:31:00 Test Item Value Reference Range Interpretation Comments Lactic Acid Lvl (test code = Lactic 1.5 0.5-2.2 Acid Lvl) [facility] [place]burgXevcvtjBJGUBATSJZ6872-10-47 10:31:00 Test Item Value Reference Range Interpretation Comments Segs (test code = Segs) 91.2 45.0-75.0 [facility] EdinburgDfxzykrOFVXVXJPCW4382-74-11 10:31:00 Test Item Value Reference Range Interpretation Comments Lymphocytes (test code = Lymphocytes) 7.5 20.0-40.0 [facility] EdinburgClcnranNKLIMBTWTC0264-41-98 10:31:00 Test Item Value Reference Range Interpretation Comments Monocytes (test code = Monocytes) 1.2 2.0-12.0 [facility] EdinburgDybepekZAOTAMWGOK4950-93-54 10:31:00 Test Item Value Reference Range Interpretation Comments Basophils (test code = 0.1 See_Comment [Aut omated message] The Basophils) system which ge nerated this result tra nsmitted reference range : <=1.0. The reference r maría was not used to int erpret this result as normal/abnormal . [facility] EdinburgEubrigxDEPKQECWLC3729-76-40 10:31:00 Test Item Value Reference Range Interpretation Comments Neutrophils # (test code = Neutrophils 9.4 1.5-8.1 #) [facility] [place]inburgWzakxczEWJCIGTNXA6763-74-65 10:31:00 Test Item Value Reference Range Interpretation Comments Lymphocytes # (test code = Lymphocytes 0.8 1.0-5.5 #) [facility] EdinburgUxenuduDNXGGGBOTE7678-65-45 10:31:00 Test Item Value Reference Range Interpretation Comments Monocytes # (test code 0.1 See_Comment [Aut omated message] The = Monocytes #) system which generated this result tra nsmitted reference range : <=0.8. The reference r maría was not used to int erpret this result as normal/abnormal . [facility] EdinburgDfmdxaxHLWQTXIHCT7718-57-37 10:31:00 Test Item Value Reference Range Interpretation Comments WBC (test code = WBC) 10.3 3.7-10.4 [facility] [place]burgXaqeeonCBUBGDQPUS6681-35-31 10:31:00 Test Item Value Reference Range Interpretation Comments RBC (test code = RBC) 4.13 4.20-5.40 [facility] [place]burgOhkbkexUVNTWMUEBF2455-49-34 10:31:00 Test Item Value Reference Range Interpretation Comments Hgb (test code = Hgb) 12.8 12.0-16.0 [facility] EdinburgOcmokacAGGARYMGHO8585-67-58 10:31:00 Test Item Value Reference Range Interpretation Comments Hct (test code = Hct) 38.6 36.0-48.0 [facility] HospitalApukevoTTGTPDKYBW0303-59-80 10:31:00 Test Item Value Reference Range Interpretation Comments MCV (test code = MCV) 93.7 80.0-98.0 [facility] EdinburgDixaflfMYSKTCUDIF3887-17-92 10:31:00 Test Item Value Reference Range Interpretation Comments MCH (test code = MCH) 31.0 pg 27.0-31.0 [facility] EdinburgQxxveljDMWWAYIGXJ4825-84-05 10:31:00 Test Item Value Reference Range Interpretation Comments MCHC (test code = MCHC) 33.1 32.0-36.0 [facility] [place]burgOcncuvuKPPXBDWBEI8482-31-85 10:31:00 Test Item Value Reference Range Interpretation Comments RDW (test code = RDW) 15.4 11.5-14.5 [facility] EdinburgZqadjacHNSRJFNXGL4956-28-20 10:31:00 Test Item Value Reference Range Interpretation Comments Platelet (test code = Platelet) 388 133-450 [facility] EdinburgHicfkduZMUVPQNRQT0760-52-52 10:31:00 Test Item Value Reference Range Interpretation Comments MPV (test code = MPV) 8.3 7.4-10.4 [facility] HospitalVttzhrwOLUFGL1012-50-30 10:31:00 Test Item Value Reference Range Interpretation Comments CHD Risk (test code = CHD Risk) 2.87 1 3.90-5.80 [facility] HospitalKjttznoWQPFQY1416-17-72 10:31:00 Test Item Value Reference Range Interpretation Comments Trig (test code = Trig) 52 [facility]VcnssctWEIPYG3586-54-46 10:31:00 Test Item Value Reference Range Interpretation Comments Chol (test code = Chol) 172 [facility] HospitalLsbspkxABKWFG8914-06-63 10:31:00 Test Item Value Reference Range Interpretation Comments HDL (test code = HDL) 60 [facility] HospitalCgpqldvIGEHOS7469-13-81 10:31:00 Test Item Value Reference Range Interpretation Comments LDL (Calculated) (test code = LDL 102 (Calculated)) [facility] HospitalCygdrldRFEJWA8457-88-75 10:31:00 Test Item Value Reference Range Interpretation Comments VLDL (test code = VLDL) 10 1 [facility] [id number] 10:31:00 Test Item Value Reference Range Interpretation Comments Hgb A1C (test code = Hgb A1C) 4.9 [facility] HospitalIA [id number] 10:31:00 Test Item Value Reference Range Interpretation Comments Vitamin B12 Lvl (test code = Vitamin 829 766-7994 B12 Lvl) [facility] HospitalCARDIAC [id number] 10:31:00 Test Item Value Reference Range Interpretation Comments Troponin-I (test code 0.18 See_Comment [Auto mated message] The = Troponin-I) system which g enerated this result transmit maria c reference range : <=0.40. The reference r maría was not used to interpr et this result as karthikeyan l/abnormal. [facility]2019-12-30 10:31:00 Test Item Value Reference Range Interpretation Comments Phosphorus (test code = Phosphorus) 4.4 2.5-4.5 [facility]2019-12-30 10:31:00 Test Item Value Reference Range Interpretation Comments Magnesium Lvl (test code = Magnesium 2.2 1.8-2.4 Lvl) [facility]2019-12-30 10:31:00 Test Item Value Reference Range Interpretation Comments Glucose Lvl (test code = Glucose Lvl) 146 70-99 [facility]2019-12-30 10:31:00 Test Item Value Reference Range Interpretation Comments BUN (test code = BUN) 14 7-22 [facility]2019-12-30 10:31:00 Test Item Value Reference Range Interpretation Comments Creatinine Lvl (test code = Creatinine 0.94 0.50-1.40 Lvl) [facility]2019-12-30 10:31:00 Test Item Value Reference Range Interpretation Comments Sodium Lvl (test code = Sodium Lvl) 140 135-145 [facility]2019-12-30 10:31:00 Test Item Value Reference Range Interpretation Comments Potassium Lvl (test code = Potassium 3.9 3.5-5.1 Lvl) [facility]2019-12-30 10:31:00 Test Item Value Reference Range Interpretation Comments Chloride Lvl (test code = Chloride Lvl) 103 95-109 [facility]2019-12-30 10:31:00 Test Item Value Reference Range Interpretation Comments CO2 (test code = CO2) 28 24-32 [facility]2019-12-30 10:31:00 Test Item Value Reference Range Interpretation Comments Calcium Lvl (test code = Calcium Lvl) 9.2 8.5-10.5 [facility]2019-12-30 10:31:00 Test Item Value Reference Range Interpretation Comments eGFR (test code = eGFR) 59 [facility]2019-12-30 10:31:00 Test Item Value Reference Range Interpretation Comments AGAP (test code = AGAP) 12.9 10.0-20.0 [facility]2019-12-30 10:31:00 Test Item Value Reference Range Interpretation Comments Procalcitonin Lvl (test 3.83 See_Comment [Au tomated message] code = Procalcitonin Lvl) Th e system which generated this result transmitted ref erence range: <=0.10. The reference range was not used to interpr et this result as normal/abnormal . [facility]2019-12-30 10:31:00 Test Item Value Reference Range Interpretation Comments Lactic Acid Lvl (test code = Lactic 1.5 0.5-2.2 Acid Lvl) [facility] [place]burgSvjxgvwBSZIKLKWJT6266-22-32 10:31:00 Test Item Value Reference Range Interpretation Comments Segs (test code = Segs) 91.2 45.0-75.0 [facility] [place]inburgIrkglnlIFFWOCAZRV7438-03-90 10:31:00 Test Item Value Reference Range Interpretation Comments Lymphocytes (test code = Lymphocytes) 7.5 20.0-40.0 [facility] [place]burgPohfmyiSEUNJUPUZO6314-82-58 10:31:00 Test Item Value Reference Range Interpretation Comments Monocytes (test code = Monocytes) 1.2 2.0-12.0 [facility] EdinburgRebpirfPYGXKSYTLX3474-56-51 10:31:00 Test Item Value Reference Range Interpretation Comments Basophils (test code = 0.1 See_Comment [Aut omated message] The Basophils) system which ge nerated this result tra nsmitted reference range : <=1.0. The reference r maría was not used to int erpret this result as normal/abnormal . [facility] [place]burgGwjjkauVLQWGMGYDZ6613-09-10 10:31:00 Test Item Value Reference Range Interpretation Comments Neutrophils # (test code = Neutrophils 9.4 1.5-8.1 #) [facility] [place]burgWzbmpdfDYFGJXKINW5442-11-57 10:31:00 Test Item Value Reference Range Interpretation Comments Lymphocytes # (test code = Lymphocytes 0.8 1.0-5.5 #) [facility] EdinburgQzlivgzHOFOZTJGPT3889-19-40 10:31:00 Test Item Value Reference Range Interpretation Comments Monocytes # (test code 0.1 See_Comment [Aut omated message] The = Monocytes #) system which generated this result tra nsmitted reference range : <=0.8. The reference r maría was not used to int erpret this result as normal/abnormal . [facility] [place]burgPrwcwpfGUUWISJXRV4664-71-12 10:31:00 Test Item Value Reference Range Interpretation Comments WBC (test code = WBC) 10.3 3.7-10.4 [facility] [place]inburgKawidbeBZEDTDPIZC7458-59-66 10:31:00 Test Item Value Reference Range Interpretation Comments RBC (test code = RBC) 4.13 4.20-5.40 [facility] EdinburgSnugulnWPZIKVCJYZ5811-93-39 10:31:00 Test Item Value Reference Range Interpretation Comments Hgb (test code = Hgb) 12.8 12.0-16.0 [facility] [place]burgKbfjvtkPJDBVVRBEC7061-14-28 10:31:00 Test Item Value Reference Range Interpretation Comments Hct (test code = Hct) 38.6 36.0-48.0 [facility] [place]burgWgqtjpmUXWEGOHQEK8722-53-52 10:31:00 Test Item Value Reference Range Interpretation Comments MCV (test code = MCV) 93.7 80.0-98.0 [facility] [place]burgXhepppfDXNKVJCKIG4305-62-10 10:31:00 Test Item Value Reference Range Interpretation Comments MCH (test code = MCH) 31.0 pg 27.0-31.0 [facility] [place]burgXbknslvTEMNJIPWQE9353-61-97 10:31:00 Test Item Value Reference Range Interpretation Comments MCHC (test code = MCHC) 33.1 32.0-36.0 [facility] EdinburgBzgqkiyBJEYMYXBFY8006-15-78 10:31:00 Test Item Value Reference Range Interpretation Comments RDW (test code = RDW) 15.4 11.5-14.5 [facility] EdinburgRwyknlyBKNZEATVHU3944-30-28 10:31:00 Test Item Value Reference Range Interpretation Comments Platelet (test code = Platelet) 388 133-450 [facility] [place]inburgBgbgqsmRWMCQWDCDC9826-66-04 10:31:00 Test Item Value Reference Range Interpretation Comments MPV (test code = MPV) 8.3 7.4-10.4 [facility] CampusHqkcdahVVVWHT6746-65-81 10:31:00 Test Item Value Reference Range Interpretation Comments CHD Risk (test code = CHD Risk) 2.87 1 3.90-5.80 [facility] CampusAlylnndBJKSBW6023-96-59 10:31:00 Test Item Value Reference Range Interpretation Comments Trig (test code = Trig) 52 [facility] CampusDetfrxiNVPXIU6316-97-58 10:31:00 Test Item Value Reference Range Interpretation Comments Chol (test code = Chol) 172 [facility] CampusVvmxhmlSWTDYE1746-41-29 10:31:00 Test Item Value Reference Range Interpretation Comments HDL (test code = HDL) 60 [facility] CampusKyiluyuEGGXBX4626-34-58 10:31:00 Test Item Value Reference Range Interpretation Comments LDL (Calculated) (test code = LDL 102 (Calculated)) [facility] HospitalRyhdyzePANVZO2091-79-87 10:31:00 Test Item Value Reference Range Interpretation Comments VLDL (test code = VLDL) 10 1 [facility] FKLLBCXRK8730-89-94 10:31:00 Test Item Value Reference Range Interpretation Comments Hgb A1C (test code = Hgb A1C) 4.9 [facility] CenterNEMIA KXDVD4631-92-56 10:31:00 Test Item Value Reference Range Interpretation Comments Vitamin B12 Lvl (test code = Vitamin 954 574-1314 B12 Lvl) [facility]CARD[facility]AC FFZIWPY8037-18-19 10:31:00 Test Item Value Reference Range Interpretation Comments Troponin-I (test code 0.18 See_Comment [Auto mated message] The = Troponin-I) system which g enerated this result transmit maria c reference range : <=0.40. The reference r maría was not used to interpr et this result as karthikeyan l/abnormal. [facility]CHEM [id number] 10:31:00 Test Item Value Reference Range Interpretation Comments Phosphorus (test code = Phosphorus) 4.4 2.5-4.5 [facility]CHE[facility] [id number] 10:31:00 Test Item Value Reference Range Interpretation Comments Magnesium Lvl (test code = Magnesium 2.2 1.8-2.4 Lvl) [facility]CHE[facility] JVVZV6552-97-50 10:31:00 Test Item Value Reference Range Interpretation Comments Glucose Lvl (test code = Glucose Lvl) 146 70-99 [facility]2019-12-30 10:31:00 Test Item Value Reference Range Interpretation Comments BUN (test code = BUN) 14 7-22 [facility]2019-12-30 10:31:00 Test Item Value Reference Range Interpretation Comments Creatinine Lvl (test code = Creatinine 0.94 0.50-1.40 Lvl) [facility]2019-12-30 10:31:00 Test Item Value Reference Range Interpretation Comments Sodium Lvl (test code = Sodium Lvl) 140 135-145 [facility]2019-12-30 10:31:00 Test Item Value Reference Range Interpretation Comments Potassium Lvl (test code = Potassium 3.9 3.5-5.1 Lvl) [facility]2019-12-30 10:31:00 Test Item Value Reference Range Interpretation Comments Chloride Lvl (test code = Chloride Lvl) 103 95-109 [facility]2019-12-30 10:31:00 Test Item Value Reference Range Interpretation Comments CO2 (test code = CO2) 28 24-32 [facility]2019-12-30 10:31:00 Test Item Value Reference Range Interpretation Comments Calcium Lvl (test code = Calcium Lvl) 9.2 8.5-10.5 [facility]2019-12-30 10:31:00 Test Item Value Reference Range Interpretation Comments eGFR (test code = eGFR) 59 [facility]2019-12-30 10:31:00 Test Item Value Reference Range Interpretation Comments AGAP (test code = AGAP) 12.9 10.0-20.0 [facility]2019-12-30 10:31:00 Test Item Value Reference Range Interpretation Comments Procalcitonin Lvl (test 3.83 See_Comment [Au tomated message] code = Procalcitonin Lvl) Th e system which generated this result transmitted ref erence range: <=0.10. The reference range was not used to interpr et this result as normal/abnormal . [facility]2019-12-30 10:31:00 Test Item Value Reference Range Interpretation Comments Lactic Acid Lvl (test code = Lactic 1.5 0.5-2.2 Acid Lvl) [facility] EdinburgPlwjeqwWMOFLSTBGF8358-28-08 10:31:00 Test Item Value Reference Range Interpretation Comments Segs (test code = Segs) 91.2 45.0-75.0 [facility] HospitalBqqmkuzNHUHKGJACC3578-66-65 10:31:00 Test Item Value Reference Range Interpretation Comments Lymphocytes (test code = Lymphocytes) 7.5 20.0-40.0 [facility] HospitalZmxpodcSKAGOHBGQE4283-06-88 10:31:00 Test Item Value Reference Range Interpretation Comments Monocytes (test code = Monocytes) 1.2 2.0-12.0 [facility] HospitalXzjuhpeWMKZGSXFUO0054-83-05 10:31:00 Test Item Value Reference Range Interpretation Comments Basophils (test code = 0.1 See_Comment [Aut omated message] The Basophils) system which ge nerated this result tra nsmitted reference range : <=1.0. The reference r maría was not used to int erpret this result as normal/abnormal . [facility] EdinburgOfswjrgXGJBLOZPBE2896-71-69 10:31:00 Test Item Value Reference Range Interpretation Comments Neutrophils # (test code = Neutrophils 9.4 1.5-8.1 #) [facility] HospitalUandqjnMLGGRRHTPL6562-11-05 10:31:00 Test Item Value Reference Range Interpretation Comments Lymphocytes # (test code = Lymphocytes 0.8 1.0-5.5 #) [facility] EdinburgFrfviilHYAJVVZJOA0662-68-69 10:31:00 Test Item Value Reference Range Interpretation Comments Monocytes # (test code 0.1 See_Comment [Aut omated message] The = Monocytes #) system which generated this result tra nsmitted reference range : <=0.8. The reference r maría was not used to int erpret this result as normal/abnormal . [facility] HospitalCaicmmwNPIOETLSBC0875-22-23 10:31:00 Test Item Value Reference Range Interpretation Comments WBC (test code = WBC) 10.3 3.7-10.4 [facility] HospitalBACTERIAL - CFMCXMZE9234-06-61 05:41:00 Test Item Value Reference Range Interpretation Comments MRSA by PCR (test Negative (09/14/19 11:41 code = MRSA by PCR) PM) [facility]CARD[facility]AC [id number] 05:41:00 Test Item Value Reference Range Interpretation Comments BNP (test code = BNP) 488 [facility]AC HHPYZVU9235-38-22 05:41:00 Test Item Value Reference Range Interpretation Comments Troponin-I (test code 0.26 See_Comment [Auto mated message] The = Troponin-I) system which g enerated this result transmit maria c reference range : <=0.40. The reference r maría was not used to interpr et this result as karthikeyan l/abnormal. [facility]2019-12-30 05:41:00 Test Item Value Reference Range Interpretation Comments Procalcitonin Lvl (test 2.77 See_Comment [Au tomated message] code = Procalcitonin Lvl) Th e system which generated this result transmitted ref erence range: <=0.10. The reference range was not used to interpr et this result as normal/abnormal . [facility]2019-12-30 05:41:00 Test Item Value Reference Range Interpretation Comments Glucose Lvl (test code = Glucose Lvl) 134 70-99 [facility]2019-12-30 05:41:00 Test Item Value Reference Range Interpretation Comments BUN (test code = BUN) 13 7-22 [facility]2019-12-30 05:41:00 Test Item Value Reference Range Interpretation Comments Creatinine Lvl (test code = Creatinine 1.01 0.50-1.40 Lvl) [facility]2019-12-30 05:41:00 Test Item Value Reference Range Interpretation Comments Sodium Lvl (test code = Sodium Lvl) 140 135-145 [facility]2019-12-30 05:41:00 Test Item Value Reference Range Interpretation Comments Potassium Lvl (test code = Potassium 4.0 3.5-5.1 Lvl) [facility]2019-12-30 05:41:00 Test Item Value Reference Range Interpretation Comments Chloride Lvl (test code = Chloride Lvl) 103 95-109 [facility]2019-12-30 05:41:00 Test Item Value Reference Range Interpretation Comments CO2 (test code = CO2) 30 24-32 [facility]2019-12-30 05:41:00 Test Item Value Reference Range Interpretation Comments Calcium Lvl (test code = Calcium Lvl) 8.8 8.5-10.5 [facility]2019-12-30 05:41:00 Test Item Value Reference Range Interpretation Comments Total Protein (test code = Total 7.3 6.4-8.4 Protein) [facility]2019-12-30 05:41:00 Test Item Value Reference Range Interpretation Comments Albumin Lvl (test code = Albumin Lvl) 3.2 3.5-5.0 [facility]2019-12-30 05:41:00 Test Item Value Reference Range Interpretation Comments ALT (test code = ALT) 19 See_Comment [Auto mated message] The system which ge nerated this result transmit maria c reference range : <=65. The reference range was not used to interpr et this result as karthikeyan l/abnormal. [facility]2019-12-30 05:41:00 Test Item Value Reference Range Interpretation Comments AST (test code = AST) 21 See_Comment [Auto mated message] The system which ge nerated this result transmit maria c reference range : <=37. The reference range was not used to interpr et this result as karthikeyan l/abnormal. [facility]2019-12-30 05:41:00 Test Item Value Reference Range Interpretation Comments Alk Phos (test code = Alk Phos) 136 39-136 [facility]2019-12-30 05:41:00 Test Item Value Reference Range Interpretation Comments Bili Total (test code = Bili Total) 0.4 0.2-1.3 [facility]2019-12-30 05:41:00 Test Item Value Reference Range Interpretation Comments eGFR (test code = eGFR) 55 [facility]2019-12-30 05:41:00 Test Item Value Reference Range Interpretation Comments AGAP (test code = AGAP) 11.0 10.0-20.0 [facility]2019-12-30 05:41:00 Test Item Value Reference Range Interpretation Comments B/C Ratio (test code = B/C Ratio) 13 1 6-25 [place] 508859-12-30 05:41:00 Test Item Value Reference Range Interpretation Comments Globulin (test code = Globulin) 4.1 2.7-4.2 [place] 508859-12-30 05:41:00 Test Item Value Reference Range Interpretation Comments A/G Ratio (test code = A/G Ratio) 0.8 1 0.7-1.6 [place] 508859-12-30 05:41:00 Test Item Value Reference Range Interpretation Comments Magnesium Lvl (test code = Magnesium 2.3 1.8-2.4 Lvl) [id number] 05:[facility]:00 Test Item Value Reference Range Interpretation Comments Phosphorus (test code = Phosphorus) 4.4 2.5-4.5 [facility]KbtcydiZNKZENRUNS5012-50-23 05:41:00 Test Item Value Reference Range Interpretation Comments WBC (test code = WBC) 14.9 3.7-10.4 [facility]burgUarzptyCCVCWCDSTS6114-78-97 05:41:00 Test Item Value Reference Range Interpretation Comments RBC (test code = RBC) 4.11 4.20-5.40 [facility]burgWubeypeNBXFRJQVCY8886-28-61 05:41:00 Test Item Value Reference Range Interpretation Comments Hgb (test code = Hgb) 12.6 12.0-16.0 [facility]burgYkppgdcHQGONUYMWL6809-77-70 05:41:00 Test Item Value Reference Range Interpretation Comments Hct (test code = Hct) 38.1 36.0-48.0 [facility]BACT[facility] - [id number] 05:41:00 Test Item Value Reference Range Interpretation Comments MRSA by PCR (test Negative (09/14/19 11:41 code = MRSA by PCR) PM) [facility]inburgIwfgzavUMFURTYKBO8424-01-68 05:41:00 Test Item Value Reference Range Interpretation Comments MCV (test code = MCV) 92.8 80.0-98.0 [facility] HospitalCARDIAC [id number] 05:41:00 Test Item Value Reference Range Interpretation Comments BNP (test code = BNP) 488 [facility]inburgHxwqwgiKGBKNABLPO1504-48-40 05:41:00 Test Item Value Reference Range Interpretation Comments MCH (test code = MCH) 30.7 pg 27.0-31.0 [facility] HospitalCARDI VODKQZE1847-33-29 05:41:00 Test Item Value Reference Range Interpretation Comments Troponin-I (test code 0.26 See_Comment [Auto mated message] The = Troponin-I) system which g enerated this result transmit maria c reference range : <=0.40. The reference r maría was not used to interpr et this result as karthikeyan l/abnormal. [facility]inburgZeoqpkpEQAEDVVIJP3658-07-21 05:41:00 Test Item Value Reference Range Interpretation Comments MCHC (test code = MCHC) 33.1 32.0-36.0 [facility]2019-12-30 05:41:00 Test Item Value Reference Range Interpretation Comments Procalcitonin Lvl (test 2.77 See_Comment [Au tomated message] code = Procalcitonin Lvl) Th e system which generated this result transmitted ref erence range: <=0.10. The reference range was not used to interpr et this result as normal/abnormal . [facility]burgMprhlwbZKPXBNABKR2911-91-93 05:41:00 Test Item Value Reference Range Interpretation Comments RDW (test code = RDW) 15.2 11.5-14.5 [facility]2019-12-30 05:41:00 Test Item Value Reference Range Interpretation Comments Glucose Lvl (test code = Glucose Lvl) 134 70-99 [facility]inburgOhezflaHBSKNECCMY4969-15-61 05:41:00 Test Item Value Reference Range Interpretation Comments Platelet (test code = Platelet) 372 133-450 [facility]2019-12-30 05:41:00 Test Item Value Reference Range Interpretation Comments BUN (test code = BUN) 13 7-22 [facility]burgJqcpbzrUSWSJVLIEX3736-42-27 05:41:00 Test Item Value Reference Range Interpretation Comments MPV (test code = MPV) 8.3 7.4-10.4 [facility]2019-12-30 05:41:00 Test Item Value Reference Range Interpretation Comments Creatinine Lvl (test code = Creatinine 1.01 0.50-1.40 Lvl) [facility]inburgLwqozaaVVLEJCGLTT1001-02-96 05:41:00 Test Item Value Reference Range Interpretation Comments INR (test code = INR) 1.07 1 0.85-1.17 [facility]2019-12-30 05:41:00 Test Item Value Reference Range Interpretation Comments Sodium Lvl (test code = Sodium Lvl) 140 135-145 [facility]inburgKdgdzllGWBRWHUAYS5203-35-86 05:41:00 Test Item Value Reference Range Interpretation Comments PT (test code = PT) 13.9 s 12.0-14.7 [facility]2019-12-30 05:41:00 Test Item Value Reference Range Interpretation Comments Potassium Lvl (test code = Potassium 4.0 3.5-5.1 Lvl) [facility]burgZbwzwwhVNGLRTBQKJ3332-91-07 05:41:00 Test Item Value Reference Range Interpretation Comments PTT (test code = PTT) 34.8 s 22.9-35.8 [facility]burgTuwbmzcONLJWSOEAC5531-00-99 05:41:00 Test Item Value Reference Range Interpretation Comments RBC Morph (test code = Normal (09/14/19 11:41 RBC Morph) PM) [facility]2019-12-30 05:41:00 Test Item Value Reference Range Interpretation Comments Chloride Lvl (test code = Chloride Lvl) 103 95-109 [facility]inburgHtqfgckDILUGPHMRQ0402-64-45 05:41:00 Test Item Value Reference Range Interpretation Comments Plt Morph (test code = Normal (09/14/19 11:41 Plt Morph) PM) [facility]2019-12-30 05:41:00 Test Item Value Reference Range Interpretation Comments CO2 (test code = CO2) 30 24-32 [facility]inburgZcmkgjhAHAWIYTXWN5670-54-89 05:41:00 Test Item Value Reference Range Interpretation Comments Segs (test code = Segs) 94.6 45.0-75.0 [facility]2019-12-30 05:41:00 Test Item Value Reference Range Interpretation Comments Calcium Lvl (test code = Calcium Lvl) 8.8 8.5-10.5 [facility]burgEziowcsNWKNMHSBZP0174-28-36 05:41:00 Test Item Value Reference Range Interpretation Comments Lymphocytes (test code = Lymphocytes) 3.9 20.0-40.0 [facility]2019-12-30 05:41:00 Test Item Value Reference Range Interpretation Comments Total Protein (test code = Total 7.3 6.4-8.4 Protein) [facility]burgCbpvqtfRTJCLXISPW7433-48-86 05:41:00 Test Item Value Reference Range Interpretation Comments Monocytes (test code = Monocytes) 1.1 2.0-12.0 [facility]2019-12-30 05:41:00 Test Item Value Reference Range Interpretation Comments Albumin Lvl (test code = Albumin Lvl) 3.2 3.5-5.0 [facility]burgDdmsssxPTJKZDJHYA7082-97-86 05:41:00 Test Item Value Reference Range Interpretation Comments Eosinophils (test code = 0.1 See_Comment [A utomated message] The Eosinophils) system which ge nerated this result tra nsmitted reference range : <=4.0. The reference r maría was not used to int erpret this result as normal/abnormal . [facility]2019-12-30 05:41:00 Test Item Value Reference Range Interpretation Comments ALT (test code = ALT) 19 See_Comment [Auto mated message] The system which ge nerated this result transmit maria c reference range : <=65. The reference range was not used to interpr et this result as karthikeyan l/abnormal. [facility]inburgZddmjsxPQDGUSMYGY3469-05-59 05:41:00 Test Item Value Reference Range Interpretation Comments Basophils (test code = 0.3 See_Comment [Aut omated message] The Basophils) system which ge nerated this result tra nsmitted reference range : <=1.0. The reference r maría was not used to int erpret this result as normal/abnormal . [facility]2019-12-30 05:41:00 Test Item Value Reference Range Interpretation Comments AST (test code = AST) 21 See_Comment [Auto mated message] The system which ge nerated this result transmit maria c reference range : <=37. The reference range was not used to interpr et this result as karthikeyan l/abnormal. [facility]burgCwqdvhaYLBPJUDCCN5469-12-64 05:41:00 Test Item Value Reference Range Interpretation Comments Neutrophils # (test code = Neutrophils 14.1 1.5-8.1 #) [facility]2019-12-30 05:41:00 Test Item Value Reference Range Interpretation Comments Alk Phos (test code = Alk Phos) 136 39-136 [facility]inburgLsnkjukIJFBWBXRPN0047-42-94 05:41:00 Test Item Value Reference Range Interpretation Comments Lymphocytes # (test code = Lymphocytes 0.6 1.0-5.5 #) [facility]2019-12-30 05:41:00 Test Item Value Reference Range Interpretation Comments Bili Total (test code = Bili Total) 0.4 0.2-1.3 [facility]burgHsmcywsHCGOWVIBTH6092-97-44 05:41:00 Test Item Value Reference Range Interpretation Comments Monocytes # (test code 0.2 See_Comment [Aut omated message] The = Monocytes #) system which generated this result tra nsmitted reference range : <=0.8. The reference r maría was not used to int erpret this result as normal/abnormal . [facility]2019-12-30 05:41:00 Test Item Value Reference Range Interpretation Comments eGFR (test code = eGFR) 55 [facility]2019-12-30 05:41:00 Test Item Value Reference Range Interpretation Comments Ca Ion WB (test code = Ca Ion WB) 1.08 1.05-1.25 [facility]2019-12-30 05:41:00 Test Item Value Reference Range Interpretation Comments AGAP (test code = AGAP) 11.0 10.0-20.0 [facility]2019-12-30 05:41:00 Test Item Value Reference Range Interpretation Comments B/C Ratio (test code = B/C Ratio) 13 1 6-25 [facility]2019-12-30 05:41:00 Test Item Value Reference Range Interpretation Comments Ca Norm WB (test code = Ca Norm WB) 1.04 1.05-1.25 [facility]2019-12-30 05:41:00 Test Item Value Reference Range Interpretation Comments Globulin (test code = Globulin) 4.1 2.7-4.2 [facility]2019-12-30 05:41:00 Test Item Value Reference Range Interpretation Comments A/G Ratio (test code = A/G Ratio) 0.8 1 0.7-1.6 [facility]2019-12-30 05:41:00 Test Item Value Reference Range Interpretation Comments Magnesium Lvl (test code = Magnesium 2.3 1.8-2.4 Lvl) [facility]2019-12-30 05:41:00 Test Item Value Reference Range Interpretation Comments Phosphorus (test code = Phosphorus) 4.4 2.5-4.5 [facility]burgKapxjftASSSHBLIQU6573-15-68 05:41:00 Test Item Value Reference Range Interpretation Comments WBC (test code = WBC) 14.9 3.7-10.4 [facility]burgOtjtsdfIYZJLRLLZM4590-32-92 05:41:00 Test Item Value Reference Range Interpretation Comments RBC (test code = RBC) 4.11 4.20-5.40 [facility]burgEzqznvsDDVYTRFGYI8202-68-71 05:41:00 Test Item Value Reference Range Interpretation Comments Hgb (test code = Hgb) 12.6 12.0-16.0 [facility]burgWdqkhqqCESTABCEJK2214-73-20 05:41:00 Test Item Value Reference Range Interpretation Comments Hct (test code = Hct) 38.1 36.0-48.0 [facility]inburgBpgidreGSKSUZDVKI5785-08-37 05:41:00 Test Item Value Reference Range Interpretation Comments MCV (test code = MCV) 92.8 80.0-98.0 [facility]burgSqufqohUSQQCTUSIA5411-32-34 05:41:00 Test Item Value Reference Range Interpretation Comments MCH (test code = MCH) 30.7 pg 27.0-31.0 [facility]inburgMioilteDUOXHPXCWT8895-25-53 05:41:00 Test Item Value Reference Range Interpretation Comments MCHC (test code = MCHC) 33.1 32.0-36.0 [facility]inburgDbjtmtaNZZKSIBHSG5401-89-35 05:41:00 Test Item Value Reference Range Interpretation Comments RDW (test code = RDW) 15.2 11.5-14.5 [facility]inburgJsklhsiUJDRZWHYHH6282-51-46 05:41:00 Test Item Value Reference Range Interpretation Comments Platelet (test code = Platelet) 372 133-450 [facility]inburgHihwxsmTORSORUJRA2010-33-59 05:41:00 Test Item Value Reference Range Interpretation Comments MPV (test code = MPV) 8.3 7.4-10.4 [facility]inburgOgkegjpNQTXEXTOQU4674-04-50 05:41:00 Test Item Value Reference Range Interpretation Comments INR (test code = INR) 1.07 1 0.85-1.17 [facility]inburgFplkzmrLVZNBPWQNM9494-39-80 05:41:00 Test Item Value Reference Range Interpretation Comments PT (test code = PT) 13.9 s 12.0-14.7 [facility]inburgRffyrtzJOEITVRIZB5556-31-85 05:41:00 Test Item Value Reference Range Interpretation Comments PTT (test code = PTT) 34.8 s 22.9-35.8 [facility]inburgQuqbrkkABKBSFOQAA3726-73-75 05:41:00 Test Item Value Reference Range Interpretation Comments RBC Morph (test code = Normal (09/14/19 11:41 RBC Morph) PM) [facility]inburgIiynegnDEIGKYADPE5627-38-86 05:41:00 Test Item Value Reference Range Interpretation Comments Plt Morph (test code = Normal (09/14/19 11:41 Plt Morph) PM) [facility]inburgNlpyyhpYFTYNWOLKW2364-16-32 05:41:00 Test Item Value Reference Range Interpretation Comments Segs (test code = Segs) 94.6 45.0-75.0 [facility]burgKujgcgqLQMGWCSPJV6375-95-83 05:41:00 Test Item Value Reference Range Interpretation Comments Lymphocytes (test code = Lymphocytes) 3.9 20.0-40.0 [facility]inburgDqxkvssWCYTGRXNVP4439-41-31 05:41:00 Test Item Value Reference Range Interpretation Comments Monocytes (test code = Monocytes) 1.1 2.0-12.0 [facility]burgKihmntxLNGDKTRTAJ6526-59-38 05:41:00 Test Item Value Reference Range Interpretation Comments Eosinophils (test code = 0.1 See_Comment [A utomated message] The Eosinophils) system which ge nerated this result tra nsmitted reference range : <=4.0. The reference r maría was not used to int erpret this result as normal/abnormal . [facility]inburgDovvkztIIIIVZZWBD8407-86-69 05:41:00 Test Item Value Reference Range Interpretation Comments Basophils (test code = 0.3 See_Comment [Aut omated message] The Basophils) system which ge nerated this result tra nsmitted reference range : <=1.0. The reference r maría was not used to int erpret this result as normal/abnormal . [facility]inburgYvdnutmLJILJYPLLY0305-38-61 05:41:00 Test Item Value Reference Range Interpretation Comments Neutrophils # (test code = Neutrophils 14.1 1.5-8.1 #) [facility]burgOceblqcUUHMXAAWCE8480-48-52 05:41:00 Test Item Value Reference Range Interpretation Comments Lymphocytes # (test code = Lymphocytes 0.6 1.0-5.5 #) [facility]inburgCazpwogIINCMHEBCA1879-17-10 05:41:00 Test Item Value Reference Range Interpretation Comments Monocytes # (test code 0.2 See_Comment [Aut omated message] The = Monocytes #) system which generated this result tra nsmitted reference range : <=0.8. The reference r maría was not used to int erpret this result as normal/abnormal . [facility] HospitalPARATHYROID [id number] 05:41:00 Test Item Value Reference Range Interpretation Comments Ca Ion WB (test code = Ca Ion WB) 1.08 1.05-1.25 [facility] HospitalPARATHYROID [id number] 05:41:00 Test Item Value Reference Range Interpretation Comments Ca Norm WB (test code = Ca Norm WB) 1.04 1.05-1.25 [facility] HospitalBACTERIAL - [id number] 05:41:00 Test Item Value Reference Range Interpretation Comments MRSA by PCR (test Negative (09/14/19 11:41 code = MRSA by PCR) PM) [facility] CampusannCARDIAC [id number] 05:41:00 Test Item Value Reference Range Interpretation Comments BNP (test code = BNP) 488 [facility] CampusDomain Holdings GroupCAREyestormAC SGETDTJ3631-26-01 05:41:00 Test Item Value Reference Range Interpretation Comments Troponin-I (test code 0.26 See_Comment [Auto mated message] The = Troponin-I) system which g enerated this result transmit maria c reference range : <=0.40. The reference r maría was not used to interpr et this result as karthikeyan l/abnormal. [facility] [employer] [id number] 05:41:00 Test Item Value Reference Range Interpretation Comments Procalcitonin Lvl (test 2.77 See_Comment [Au tomated message] code = Procalcitonin Lvl) Th e system which generated this result transmitted ref erence range: <=0.10. The reference range was not used to interpr et this result as normal/abnormal . [facility] [employer] [id number] 05:41:00 Test Item Value Reference Range Interpretation Comments Glucose Lvl (test code = Glucose Lvl) 134 70-99 [facility] [employer] [id number] 05:41:00 Test Item Value Reference Range Interpretation Comments BUN (test code = BUN) 13 7-22 [facility] CampusResiModel [id number] 05:41:00 Test Item Value Reference Range Interpretation Comments Creatinine Lvl (test code = Creatinine 1.01 0.50-1.40 Lvl) [facility] HospitalFocal Point Pharmaceuticals [id number] 05:41:00 Test Item Value Reference Range Interpretation Comments Sodium Lvl (test code = Sodium Lvl) 140 135-145 [facility] [employer] [id number] 05:41:00 Test Item Value Reference Range Interpretation Comments Potassium Lvl (test code = Potassium 4.0 3.5-5.1 Lvl) [facility]2019-12-30 05:41:00 Test Item Value Reference Range Interpretation Comments Chloride Lvl (test code = Chloride Lvl) 103 95-109 [facility]2019-12-30 05:41:00 Test Item Value Reference Range Interpretation Comments CO2 (test code = CO2) 30 24-32 [facility]2019-12-30 05:41:00 Test Item Value Reference Range Interpretation Comments Calcium Lvl (test code = Calcium Lvl) 8.8 8.5-10.5 [facility]2019-12-30 05:41:00 Test Item Value Reference Range Interpretation Comments Total Protein (test code = Total 7.3 6.4-8.4 Protein) [facility]2019-12-30 05:41:00 Test Item Value Reference Range Interpretation Comments Albumin Lvl (test code = Albumin Lvl) 3.2 3.5-5.0 [facility]2019-12-30 05:41:00 Test Item Value Reference Range Interpretation Comments ALT (test code = ALT) 19 See_Comment [Auto mated message] The system which ge nerated this result transmit maria c reference range : <=65. The reference range was not used to interpr et this result as karthikeyan l/abnormal. [facility]2019-12-30 05:41:00 Test Item Value Reference Range Interpretation Comments AST (test code = AST) 21 See_Comment [Auto mated message] The system which ge nerated this result transmit maria c reference range : <=37. The reference range was not used to interpr et this result as karthikeyan l/abnormal. [facility]2019-12-30 05:41:00 Test Item Value Reference Range Interpretation Comments Alk Phos (test code = Alk Phos) 136 39-136 [facility]2019-12-30 05:41:00 Test Item Value Reference Range Interpretation Comments Bili Total (test code = Bili Total) 0.4 0.2-1.3 [facility]2019-12-30 05:41:00 Test Item Value Reference Range Interpretation Comments eGFR (test code = eGFR) 55 [facility]2019-12-30 05:41:00 Test Item Value Reference Range Interpretation Comments AGAP (test code = AGAP) 11.0 10.0-20.0 [facility]2019-12-30 05:41:00 Test Item Value Reference Range Interpretation Comments B/C Ratio (test code = B/C Ratio) 13 1 6-25 [facility]2019-12-30 05:41:00 Test Item Value Reference Range Interpretation Comments Globulin (test code = Globulin) 4.1 2.7-4.2 [facility]2019-12-30 05:41:00 Test Item Value Reference Range Interpretation Comments A/G Ratio (test code = A/G Ratio) 0.8 1 0.7-1.6 [facility]2019-12-30 05:41:00 Test Item Value Reference Range Interpretation Comments Magnesium Lvl (test code = Magnesium 2.3 1.8-2.4 Lvl) [facility]2019-12-30 05:41:00 Test Item Value Reference Range Interpretation Comments Phosphorus (test code = Phosphorus) 4.4 2.5-4.5 [facility]inburgNawxosvEZVGYUWQHK0267-94-26 05:41:00 Test Item Value Reference Range Interpretation Comments WBC (test code = WBC) 14.9 3.7-10.4 [facility] EdinburgRjoearkYLADRNGWDX5223-07-00 05:41:00 Test Item Value Reference Range Interpretation Comments RBC (test code = RBC) 4.11 4.20-5.40 [facility] EdinburgXoihfreSYBWESRAJG4490-26-05 05:41:00 Test Item Value Reference Range Interpretation Comments Hgb (test code = Hgb) 12.6 12.0-16.0 [facility] EdinburgCrnfndxUULKZKJFWO1114-43-61 05:41:00 Test Item Value Reference Range Interpretation Comments Hct (test code = Hct) 38.1 36.0-48.0 [facility] EdinburgUlhlhrnRNNUDBCNND6991-51-32 05:41:00 Test Item Value Reference Range Interpretation Comments MCV (test code = MCV) 92.8 80.0-98.0 [facility] EdinburgLxpoflvFJDIPYRDOK4728-99-93 05:41:00 Test Item Value Reference Range Interpretation Comments MCH (test code = MCH) 30.7 pg 27.0-31.0 [facility] EdinburgZcbfkvoFOXAGLUVBW0618-22-44 05:41:00 Test Item Value Reference Range Interpretation Comments MCHC (test code = MCHC) 33.1 32.0-36.0 [facility] EdinburgNdxuwuiSPLRALRCQO8805-34-65 05:41:00 Test Item Value Reference Range Interpretation Comments RDW (test code = RDW) 15.2 11.5-14.5 [facility] EdinburgLtldsqbLZNQVQHYPR6326-46-55 05:41:00 Test Item Value Reference Range Interpretation Comments Platelet (test code = Platelet) 372 133-450 [facility] EdinburgYwgiorjQNDOTVCHRR8638-47-56 05:41:00 Test Item Value Reference Range Interpretation Comments MPV (test code = MPV) 8.3 7.4-10.4 [facility] EdinburgMijwxdhUIGKLJCVGM5521-21-86 05:41:00 Test Item Value Reference Range Interpretation Comments INR (test code = INR) 1.07 1 0.85-1.17 [facility] [facility] [place]XavdczlVSTUZPXJQY3642-88-21 05:41:00 Test Item Value Reference Range Interpretation Comments PT (test code = PT) 13.9 s 12.0-14.7 [facility] [place]burgGklsfdaQCYHFEFCKO5657-16-84 05:41:00 Test Item Value Reference Range Interpretation Comments PTT (test code = PTT) 34.8 s 22.9-35.8 [facility] [place]burgChzcmbcSGKTCGBVJB0860-49-04 05:41:00 Test Item Value Reference Range Interpretation Comments RBC Morph (test code = Normal (09/14/19 11:41 RBC Morph) PM) [facility] [place]burgXjsdkfoWQKKRADYLZ1624-27-78 05:41:00 Test Item Value Reference Range Interpretation Comments Plt Morph (test code = Normal (09/14/19 11:41 Plt Morph) PM) [facility] [place]burgPfetxccRJIAVLQANX5483-97-94 05:41:00 Test Item Value Reference Range Interpretation Comments Segs (test code = Segs) 94.6 45.0-75.0 [facility] [place]inburgLturtvpPIHCRWVFQV3720-40-74 05:41:00 Test Item Value Reference Range Interpretation Comments Lymphocytes (test code = Lymphocytes) 3.9 20.0-40.0 [facility] [place]burgWjbcwnzBMVQTEXRUF5901-43-03 05:41:00 Test Item Value Reference Range Interpretation Comments Monocytes (test code = Monocytes) 1.1 2.0-12.0 [facility] EdinburgLqtckbuIYDJLVDTGE4865-51-25 05:41:00 Test Item Value Reference Range Interpretation Comments Eosinophils (test code = 0.1 See_Comment [A utomated message] The Eosinophils) system which ge nerated this result tra nsmitted reference range : <=4.0. The reference r maría was not used to int erpret this result as normal/abnormal . [facility]SluzmltBUYWHITAXR6230-60-71 05:41:00 Test Item Value Reference Range Interpretation Comments Basophils (test code = 0.3 See_Comment [Aut omated message] The Basophils) system which ge nerated this result tra nsmitted reference range : <=1.0. The reference r maría was not used to int erpret this result as normal/abnormal . [facility] HospitalWacfhofADIVYWZVMA6373-80-50 05:41:00 Test Item Value Reference Range Interpretation Comments Neutrophils # (test code = Neutrophils 14.1 1.5-8.1 #) [facility] HospitalFbabhaxHXIAXMNUDU5472-96-69 05:41:00 Test Item Value Reference Range Interpretation Comments Lymphocytes # (test code = Lymphocytes 0.6 1.0-5.5 #) [facility] HospitalHahjufqFMWICLOETC1763-71-81 05:41:00 Test Item Value Reference Range Interpretation Comments Monocytes # (test code 0.2 See_Comment [Aut omated message] The = Monocytes #) system which generated this result tra nsmitted reference range : <=0.8. The reference r maría was not used to int erpret this result as normal/abnormal . [facility]PAR[facility] [id number] 05:41:00 Test Item Value Reference Range Interpretation Comments Ca Ion WB (test code = Ca Ion WB) 1.08 1.05-1.25 [facility] HospitalPARATHYROID [id number] 05:41:00 Test Item Value Reference Range Interpretation Comments Ca Norm WB (test code = Ca Norm WB) 1.04 1.05-1.25 [facility] CampusannBACTERIAL - [id number] 05:41:00 Test Item Value Reference Range Interpretation Comments MRSA by PCR (test Negative (09/14/19 11:41 code = MRSA by PCR) PM) [facility] CampusannCARDIAC [id number] 05:41:00 Test Item Value Reference Range Interpretation Comments BNP (test code = BNP) 488 [facility] HospitalC[facility] PZSQWOD4110-46-06 05:41:00 Test Item Value Reference Range Interpretation Comments Troponin-I (test code 0.26 See_Comment [Auto mated message] The = Troponin-I) system which g enerated this result transmit maria c reference range : <=0.40. The reference r maría was not used to interpr et this result as karthikeyan l/abnormal. [facility]2019-12-30 05:41:00 Test Item Value Reference Range Interpretation Comments Procalcitonin Lvl (test 2.77 See_Comment [Au tomated message] code = Procalcitonin Lvl) Th e system which generated this result transmitted ref erence range: <=0.10. The reference range was not used to interpr et this result as normal/abnormal . [facility]2019-12-30 05:41:00 Test Item Value Reference Range Interpretation Comments Glucose Lvl (test code = Glucose Lvl) 134 70-99 [facility]2019-12-30 05:41:00 Test Item Value Reference Range Interpretation Comments BUN (test code = BUN) 13 7-22 [facility]2019-12-30 05:41:00 Test Item Value Reference Range Interpretation Comments Creatinine Lvl (test code = Creatinine 1.01 0.50-1.40 Lvl) [facility]2019-12-30 05:41:00 Test Item Value Reference Range Interpretation Comments Sodium Lvl (test code = Sodium Lvl) 140 135-145 [facility]2019-12-30 05:41:00 Test Item Value Reference Range Interpretation Comments Potassium Lvl (test code = Potassium 4.0 3.5-5.1 Lvl) [facility]2019-12-30 05:41:00 Test Item Value Reference Range Interpretation Comments Chloride Lvl (test code = Chloride Lvl) 103 95-109 [facility]2019-12-30 05:41:00 Test Item Value Reference Range Interpretation Comments CO2 (test code = CO2) 30 24-32 [facility]2019-12-30 05:41:00 Test Item Value Reference Range Interpretation Comments Calcium Lvl (test code = Calcium Lvl) 8.8 8.5-10.5 [facility]2019-12-30 05:41:00 Test Item Value Reference Range Interpretation Comments Total Protein (test code = Total 7.3 6.4-8.4 Protein) [facility]2019-12-30 05:41:00 Test Item Value Reference Range Interpretation Comments Albumin Lvl (test code = Albumin Lvl) 3.2 3.5-5.0 [facility]2019-12-30 05:41:00 Test Item Value Reference Range Interpretation Comments ALT (test code = ALT) 19 See_Comment [Auto mated message] The system which ge nerated this result transmit maria c reference range : <=65. The reference range was not used to interpr et this result as karthikeyan l/abnormal. [facility]2019-12-30 05:41:00 Test Item Value Reference Range Interpretation Comments AST (test code = AST) 21 See_Comment [Auto mated message] The system which ge nerated this result transmit maria c reference range : <=37. The reference range was not used to interpr et this result as karthikeyan l/abnormal. [place] 508859-12-30 05:41:00 Test Item Value Reference Range Interpretation Comments Alk Phos (test code = Alk Phos) 136 39-136 [facility]2019-12-30 05:41:00 Test Item Value Reference Range Interpretation Comments Bili Total (test code = Bili Total) 0.4 0.2-1.3 [facility]2019-12-30 05:41:00 Test Item Value Reference Range Interpretation Comments eGFR (test code = eGFR) 55 [facility]2019-12-30 05:41:00 Test Item Value Reference Range Interpretation Comments AGAP (test code = AGAP) 11.0 10.0-20.0 [facility]2019-12-30 05:41:00 Test Item Value Reference Range Interpretation Comments B/C Ratio (test code = B/C Ratio) 13 1 6-25 [facility]2019-12-30 05:41:00 Test Item Value Reference Range Interpretation Comments Globulin (test code = Globulin) 4.1 2.7-4.2 [facility]2019-12-30 05:41:00 Test Item Value Reference Range Interpretation Comments A/G Ratio (test code = A/G Ratio) 0.8 1 0.7-1.6 [place] 508859-12-30 05:41:00 Test Item Value Reference Range Interpretation Comments Magnesium Lvl (test code = Magnesium 2.3 1.8-2.4 Lvl) [facility]2019-12-30 05:41:00 Test Item Value Reference Range Interpretation Comments Phosphorus (test code = Phosphorus) 4.4 2.5-4.5 [facility] [place]burgOxpiwzfONBKXBEBNU3544-15-11 05:41:00 Test Item Value Reference Range Interpretation Comments WBC (test code = WBC) 14.9 3.7-10.4 [facility] [place]burgTvmhmvaGFYOSEBXIA5129-83-05 05:41:00 Test Item Value Reference Range Interpretation Comments RBC (test code = RBC) 4.11 4.20-5.40 [facility] [place]burgEntjcdyDSTFQHMLIC4910-77-27 05:41:00 Test Item Value Reference Range Interpretation Comments Hgb (test code = Hgb) 12.6 12.0-16.0 [facility] [place]inburgLljedxuFYZUUWCFSH9311-92-94 05:41:00 Test Item Value Reference Range Interpretation Comments Hct (test code = Hct) 38.1 36.0-48.0 [facility] [place]burgTelqvtxOTYUIFXVSD4106-14-03 05:41:00 Test Item Value Reference Range Interpretation Comments MCV (test code = MCV) 92.8 80.0-98.0 [facility] [place]burgQoikrntMDYJJNLKEM9790-92-80 05:41:00 Test Item Value Reference Range Interpretation Comments MCH (test code = MCH) 30.7 pg 27.0-31.0 [facility] [place]burgDoxmwwcAMMWYHNMXT5177-33-69 05:41:00 Test Item Value Reference Range Interpretation Comments MCHC (test code = MCHC) 33.1 32.0-36.0 [facility] EdinburgArrnhonPGWVFJPUWX6409-96-35 05:41:00 Test Item Value Reference Range Interpretation Comments RDW (test code = RDW) 15.2 11.5-14.5 [facility] EdinburgRwpfdcpFTUJZYQGVE4979-03-73 05:41:00 Test Item Value Reference Range Interpretation Comments Platelet (test code = Platelet) 372 133-450 [facility] EdinburgSzizskeKFFZMQHKJJ0649-12-87 05:41:00 Test Item Value Reference Range Interpretation Comments MPV (test code = MPV) 8.3 7.4-10.4 [facility] [place]burgSpltxckBAYPXUEHJQ6238-48-63 05:41:00 Test Item Value Reference Range Interpretation Comments INR (test code = INR) 1.07 1 0.85-1.17 [facility] [place]burgAhvoswnUKUKUVGIUE4373-94-84 05:41:00 Test Item Value Reference Range Interpretation Comments PT (test code = PT) 13.9 s 12.0-14.7 [facility] [place]burgXisalhmFHPBSJJHRQ1794-97-11 05:41:00 Test Item Value Reference Range Interpretation Comments PTT (test code = PTT) 34.8 s 22.9-35.8 [facility] [place]burgTxrizbzFXUKLNHXVS8413-21-74 05:41:00 Test Item Value Reference Range Interpretation Comments RBC Morph (test code = Normal (09/14/19 11:41 RBC Morph) PM) [facility] [place]burgTnxrwtdQTAFPNLNMD7361-94-53 05:41:00 Test Item Value Reference Range Interpretation Comments Plt Morph (test code = Normal (09/14/19 11:41 Plt Morph) PM) [facility] [place]burgQmzxfqjRXHPUMCVYP0803-57-29 05:41:00 Test Item Value Reference Range Interpretation Comments Segs (test code = Segs) 94.6 45.0-75.0 [facility] [place]burgXfqqeveKKZHFJTBII7917-70-23 05:41:00 Test Item Value Reference Range Interpretation Comments Lymphocytes (test code = Lymphocytes) 3.9 20.0-40.0 [facility] [place]burgVxpjyobNAAFHKSCTT5172-10-64 05:41:00 Test Item Value Reference Range Interpretation Comments Monocytes (test code = Monocytes) 1.1 2.0-12.0 [facility] [place]burgDjymbsgZDSHWYRFXE4502-67-23 05:41:00 Test Item Value Reference Range Interpretation Comments Eosinophils (test code = 0.1 See_Comment [A utomated message] The Eosinophils) system which ge nerated this result tra nsmitted reference range : <=4.0. The reference r maría was not used to int erpret this result as normal/abnormal . [facility] [place]burgQgxfjyaNFEYXKBCHX7472-63-60 05:41:00 Test Item Value Reference Range Interpretation Comments Basophils (test code = 0.3 See_Comment [Aut omated message] The Basophils) system which ge nerated this result tra nsmitted reference range : <=1.0. The reference r maría was not used to int erpret this result as normal/abnormal . [facility] [place]burgXlumoahNSFFIHZTOZ1107-16-50 05:41:00 Test Item Value Reference Range Interpretation Comments Neutrophils # (test code = Neutrophils 14.1 1.5-8.1 #) [facility] CampusSbnkxryFIIRBJLZUZ9934-20-23 05:41:00 Test Item Value Reference Range Interpretation Comments Lymphocytes # (test code = Lymphocytes 0.6 1.0-5.5 #) [facility] CampusMzfviqqFDWZMZRRWP1189-72-50 05:41:00 Test Item Value Reference Range Interpretation Comments Monocytes # (test code 0.2 See_Comment [Aut omated message] The = Monocytes #) system which generated this result tra nsmitted reference range : <=0.8. The reference r maría was not used to int erpret this result as normal/abnormal . [facility] CampusannPARATHYROID [id number] 05:41:00 Test Item Value Reference Range Interpretation Comments Ca Ion WB (test code = Ca Ion WB) 1.08 1.05-1.25 [facility] CampusannPARATHYROID [id number] 05:41:00 Test Item Value Reference Range Interpretation Comments Ca Norm WB (test code = Ca Norm WB) 1.04 1.05-1.25 [facility] CampusannBACTERIAL - [id number] 05:41:00 Test Item Value Reference Range Interpretation Comments MRSA by PCR (test Negative (09/14/19 11:41 code = MRSA by PCR) PM) [facility] CampusannCARDIAC [id number] 05:41:00 Test Item Value Reference Range Interpretation Comments BNP (test code = BNP) 488 [facility] CampusannCARDIAC [id number] 05:41:00 Test Item Value Reference Range Interpretation Comments Troponin-I (test code 0.26 See_Comment [Auto mated message] The = Troponin-I) system which g enerated this result transmit maria c reference range : <=0.40. The reference r maría was not used to interpr et this result as karthikeyan l/abnormal. [facility] [employer] [id number] 05:41:00 Test Item Value Reference Range Interpretation Comments Procalcitonin Lvl (test 2.77 See_Comment [Au tomated message] code = Procalcitonin Lvl) Th e system which generated this result transmitted ref erence range: <=0.10. The reference range was not used to interpr et this result as normal/abnormal . [facility] [employer] [id number] 05:41:00 Test Item Value Reference Range Interpretation Comments Glucose Lvl (test code = Glucose Lvl) 134 70-99 [facility]2019-12-30 05:41:00 Test Item Value Reference Range Interpretation Comments BUN (test code = BUN) 13 7-22 [facility]2019-12-30 05:41:00 Test Item Value Reference Range Interpretation Comments Creatinine Lvl (test code = Creatinine 1.01 0.50-1.40 Lvl) [facility]2019-12-30 05:41:00 Test Item Value Reference Range Interpretation Comments Sodium Lvl (test code = Sodium Lvl) 140 135-145 [facility]2019-12-30 05:41:00 Test Item Value Reference Range Interpretation Comments Potassium Lvl (test code = Potassium 4.0 3.5-5.1 Lvl) [facility]2019-12-30 05:41:00 Test Item Value Reference Range Interpretation Comments Chloride Lvl (test code = Chloride Lvl) 103 95-109 [facility]2019-12-30 05:41:00 Test Item Value Reference Range Interpretation Comments CO2 (test code = CO2) 30 24-32 [facility]2019-12-30 05:41:00 Test Item Value Reference Range Interpretation Comments Calcium Lvl (test code = Calcium Lvl) 8.8 8.5-10.5 [facility]2019-12-30 05:41:00 Test Item Value Reference Range Interpretation Comments Total Protein (test code = Total 7.3 6.4-8.4 Protein) [facility]2019-12-30 05:41:00 Test Item Value Reference Range Interpretation Comments Albumin Lvl (test code = Albumin Lvl) 3.2 3.5-5.0 [facility]2019-12-30 05:41:00 Test Item Value Reference Range Interpretation Comments ALT (test code = ALT) 19 See_Comment [Auto mated message] The system which ge nerated this result transmit maria c reference range : <=65. The reference range was not used to interpr et this result as karthikeyan l/abnormal. [facility]2019-12-30 05:41:00 Test Item Value Reference Range Interpretation Comments AST (test code = AST) 21 See_Comment [Auto mated message] The system which ge nerated this result transmit maria c reference range : <=37. The reference range was not used to interpr et this result as karthikeyan l/abnormal. [facility]2019-12-30 05:41:00 Test Item Value Reference Range Interpretation Comments Alk Phos (test code = Alk Phos) 136 39-136 [facility]2019-12-30 05:41:00 Test Item Value Reference Range Interpretation Comments Bili Total (test code = Bili Total) 0.4 0.2-1.3 [facility]2019-12-30 05:41:00 Test Item Value Reference Range Interpretation Comments eGFR (test code = eGFR) 55 [facility]2019-12-30 05:41:00 Test Item Value Reference Range Interpretation Comments AGAP (test code = AGAP) 11.0 10.0-20.0 [facility]2019-12-30 05:41:00 Test Item Value Reference Range Interpretation Comments B/C Ratio (test code = B/C Ratio) 13 1 6-25 [facility]2019-12-30 05:41:00 Test Item Value Reference Range Interpretation Comments Globulin (test code = Globulin) 4.1 2.7-4.2 [facility]2019-12-30 05:41:00 Test Item Value Reference Range Interpretation Comments A/G Ratio (test code = A/G Ratio) 0.8 1 0.7-1.6 [facility]2019-12-30 05:41:00 Test Item Value Reference Range Interpretation Comments Magnesium Lvl (test code = Magnesium 2.3 1.8-2.4 Lvl) [facility]2019-12-30 05:41:00 Test Item Value Reference Range Interpretation Comments Phosphorus (test code = Phosphorus) 4.4 2.5-4.5 [facility] EdinburgFhsxxocNKOVWLABOM8845-56-16 05:41:00 Test Item Value Reference Range Interpretation Comments WBC (test code = WBC) 14.9 3.7-10.4 [facility] [place]burgSesgrkmCXQOGAPGED8863-84-55 05:41:00 Test Item Value Reference Range Interpretation Comments RBC (test code = RBC) 4.11 4.20-5.40 [facility] EdinburgUasvfcpEYYZALOWEP3534-22-79 05:41:00 Test Item Value Reference Range Interpretation Comments Hgb (test code = Hgb) 12.6 12.0-16.0 [facility] EdinburgHhmytgkXFFOMEPZXP9154-63-82 05:41:00 Test Item Value Reference Range Interpretation Comments Hct (test code = Hct) 38.1 36.0-48.0 [facility] EdinburgUmlfnczAGPQDBARDB9508-89-58 05:41:00 Test Item Value Reference Range Interpretation Comments MCV (test code = MCV) 92.8 80.0-98.0 [facility] EdinburgJukbxtoNKCXQLRSGZ2533-06-96 05:41:00 Test Item Value Reference Range Interpretation Comments MCH (test code = MCH) 30.7 pg 27.0-31.0 [facility] [place]burgPmftigvAASVJZKBUW9750-40-02 05:41:00 Test Item Value Reference Range Interpretation Comments MCHC (test code = MCHC) 33.1 32.0-36.0 [facility] EdinburgClqovjaFEYMMWUPOY7876-75-79 05:41:00 Test Item Value Reference Range Interpretation Comments RDW (test code = RDW) 15.2 11.5-14.5 [facility] EdinburgXyluhhgHTUZSXVTXG0356-47-14 05:41:00 Test Item Value Reference Range Interpretation Comments Platelet (test code = Platelet) 372 133-450 [facility] EdinburgJqntrplBYCEAWTPYN6372-17-92 05:41:00 Test Item Value Reference Range Interpretation Comments MPV (test code = MPV) 8.3 7.4-10.4 [facility] EdinburgBsjgezqSPYDYRADJJ2593-14-94 05:41:00 Test Item Value Reference Range Interpretation Comments INR (test code = INR) 1.07 1 0.85-1.17 [facility] EdinburgRyzaclqITQWDKWLTB1961-46-39 05:41:00 Test Item Value Reference Range Interpretation Comments PT (test code = PT) 13.9 s 12.0-14.7 [facility]inburgPthbqqeOXSJQUMHEC9161-30-88 05:41:00 Test Item Value Reference Range Interpretation Comments PTT (test code = PTT) 34.8 s 22.9-35.8 [facility] EdinburgIvallsdTRVBBJAKVL4435-03-07 05:41:00 Test Item Value Reference Range Interpretation Comments RBC Morph (test code = Normal (09/14/19 11:41 RBC Morph) PM) [facility] EdinburgMbllthnZVJZAEGOEZ8511-72-36 05:41:00 Test Item Value Reference Range Interpretation Comments Plt Morph (test code = Normal (09/14/19 11:41 Plt Morph) PM) [facility] EdinburgVwkutjkQYEXSKLCXC1360-73-61 05:41:00 Test Item Value Reference Range Interpretation Comments Segs (test code = Segs) 94.6 45.0-75.0 [facility] EdinburgSomyiqmHFPUPDBVVA7799-48-05 05:41:00 Test Item Value Reference Range Interpretation Comments Lymphocytes (test code = Lymphocytes) 3.9 20.0-40.0 [facility] EdinburgQekkpnrYGXBNTIORU5250-00-61 05:41:00 Test Item Value Reference Range Interpretation Comments Monocytes (test code = Monocytes) 1.1 2.0-12.0 [facility] EdinburgMmcfgfnOQKFIRDLHO4772-70-70 05:41:00 Test Item Value Reference Range Interpretation Comments Eosinophils (test code = 0.1 See_Comment [A utomated message] The Eosinophils) system which ge nerated this result tra nsmitted reference range : <=4.0. The reference r maría was not used to int erpret this result as normal/abnormal . [facility] EdinburgXritximCANAERBLIZ3351-38-76 05:41:00 Test Item Value Reference Range Interpretation Comments Basophils (test code = 0.3 See_Comment [Aut omated message] The Basophils) system which ge nerated this result tra nsmitted reference range : <=1.0. The reference r maría was not used to int erpret this result as normal/abnormal . [facility] EdinburgFvlbskkFUKLCEMMNW7161-43-01 05:41:00 Test Item Value Reference Range Interpretation Comments Neutrophils # (test code = Neutrophils 14.1 1.5-8.1 #) [facility] EdinburgPkwsisfIQSOQMUMLM9341-83-44 05:41:00 Test Item Value Reference Range Interpretation Comments Lymphocytes # (test code = Lymphocytes 0.6 1.0-5.5 #) [facility] EdinburgDxwhexoAPHNTKJKVE8317-05-57 05:41:00 Test Item Value Reference Range Interpretation Comments Monocytes # (test code 0.2 See_Comment [Aut omated message] The = Monocytes #) system which generated this result tra nsmitted reference range : <=0.8. The reference r maría was not used to int erpret this result as normal/abnormal . [facility]ATHY[facility] [id number] 05:41:00 Test Item Value Reference Range Interpretation Comments Ca Ion WB (test code = Ca Ion WB) 1.08 1.05-1.25 [facility]PARATHYROID [id number] 05:41:00 Test Item Value Reference Range Interpretation Comments Ca Norm WB (test code = Ca Norm WB) 1.04 1.05-1.25 [facility] HospitalBACTERIAL - [id number] 05:41:00 Test Item Value Reference Range Interpretation Comments MRSA by PCR (test Negative (09/14/19 11:41 code = MRSA by PCR) PM) [facility] CampusDomain Holdings GroupCARDIAC [id number] 05:41:00 Test Item Value Reference Range Interpretation Comments BNP (test code = BNP) 488 [facility] HospitalTetra DiscoveryAC WEJXWDQ0369-30-23 05:41:00 Test Item Value Reference Range Interpretation Comments Troponin-I (test code 0.26 See_Comment [Auto mated message] The = Troponin-I) system which g enerated this result transmit maria c reference range : <=0.40. The reference r maría was not used to interpr et this result as karthikeyan l/abnormal. [facility] CampusResiModel [id number] 05:41:00 Test Item Value Reference Range Interpretation Comments Procalcitonin Lvl (test 2.77 See_Comment [Au tomated message] code = Procalcitonin Lvl) Th e system which generated this result transmitted ref erence range: <=0.10. The reference range was not used to interpr et this result as normal/abnormal . [facility] CampusResiModel [id number] 05:41:00 Test Item Value Reference Range Interpretation Comments Glucose Lvl (test code = Glucose Lvl) 134 70-99 [facility] CampusResiModel [id number] 05:41:00 Test Item Value Reference Range Interpretation Comments BUN (test code = BUN) 13 7-22 [facility] CampusResiModel [id number] 05:41:00 Test Item Value Reference Range Interpretation Comments Creatinine Lvl (test code = Creatinine 1.01 0.50-1.40 Lvl) [facility] HospitalFocal Point Pharmaceuticals [id number] 05:41:00 Test Item Value Reference Range Interpretation Comments Sodium Lvl (test code = Sodium Lvl) 140 135-145 [facility] CampusResiModel [id number] 05:41:00 Test Item Value Reference Range Interpretation Comments Potassium Lvl (test code = Potassium 4.0 3.5-5.1 Lvl) [facility]2019-12-30 05:41:00 Test Item Value Reference Range Interpretation Comments Chloride Lvl (test code = Chloride Lvl) 103 95-109 [facility]2019-12-30 05:41:00 Test Item Value Reference Range Interpretation Comments CO2 (test code = CO2) 30 24-32 [facility]2019-12-30 05:41:00 Test Item Value Reference Range Interpretation Comments Calcium Lvl (test code = Calcium Lvl) 8.8 8.5-10.5 [facility]2019-12-30 05:41:00 Test Item Value Reference Range Interpretation Comments Total Protein (test code = Total 7.3 6.4-8.4 Protein) [facility]2019-12-30 05:41:00 Test Item Value Reference Range Interpretation Comments Albumin Lvl (test code = Albumin Lvl) 3.2 3.5-5.0 [facility]2019-12-30 05:41:00 Test Item Value Reference Range Interpretation Comments ALT (test code = ALT) 19 See_Comment [Auto mated message] The system which ge nerated this result transmit maria c reference range : <=65. The reference range was not used to interpr et this result as karthikeyan l/abnormal. [facility]2019-12-30 05:41:00 Test Item Value Reference Range Interpretation Comments AST (test code = AST) 21 See_Comment [Auto mated message] The system which ge nerated this result transmit maria c reference range : <=37. The reference range was not used to interpr et this result as karthikeyan l/abnormal. [facility]2019-12-30 05:41:00 Test Item Value Reference Range Interpretation Comments Alk Phos (test code = Alk Phos) 136 39-136 [facility]2019-12-30 05:41:00 Test Item Value Reference Range Interpretation Comments Bili Total (test code = Bili Total) 0.4 0.2-1.3 [facility]2019-12-30 05:41:00 Test Item Value Reference Range Interpretation Comments eGFR (test code = eGFR) 55 [facility]2019-12-30 05:41:00 Test Item Value Reference Range Interpretation Comments AGAP (test code = AGAP) 11.0 10.0-20.0 [facility]2019-12-30 05:41:00 Test Item Value Reference Range Interpretation Comments B/C Ratio (test code = B/C Ratio) 13 1 6-25 [facility]2019-12-30 05:41:00 Test Item Value Reference Range Interpretation Comments Globulin (test code = Globulin) 4.1 2.7-4.2 [facility]2019-12-30 05:41:00 Test Item Value Reference Range Interpretation Comments A/G Ratio (test code = A/G Ratio) 0.8 1 0.7-1.6 [facility]2019-12-30 05:41:00 Test Item Value Reference Range Interpretation Comments Magnesium Lvl (test code = Magnesium 2.3 1.8-2.4 Lvl) [facility]2019-12-30 05:41:00 Test Item Value Reference Range Interpretation Comments Phosphorus (test code = Phosphorus) 4.4 2.5-4.5 [facility]MfafkeeJTIBXVQAVG8773-01-11 05:41:00 Test Item Value Reference Range Interpretation Comments WBC (test code = WBC) 14.9 3.7-10.4 [facility]burgKypxbunSQJMKJEBZY9616-93-68 05:41:00 Test Item Value Reference Range Interpretation Comments RBC (test code = RBC) 4.11 4.20-5.40 [facility]burgFjchbowUUYYOHBTOU5544-59-24 05:41:00 Test Item Value Reference Range Interpretation Comments Hgb (test code = Hgb) 12.6 12.0-16.0 [facility]burgLcwdwdzYCWDIHJYLJ3921-41-97 05:41:00 Test Item Value Reference Range Interpretation Comments Hct (test code = Hct) 38.1 36.0-48.0 [facility]burgNezotzcTXERDOUMPJ1666-82-97 05:41:00 Test Item Value Reference Range Interpretation Comments MCV (test code = MCV) 92.8 80.0-98.0 [facility]burgHaklbehNIJVXTBELM6232-64-42 05:41:00 Test Item Value Reference Range Interpretation Comments MCH (test code = MCH) 30.7 pg 27.0-31.0 [facility]burgYxjgtqbKNETSSEWUS3640-18-39 05:41:00 Test Item Value Reference Range Interpretation Comments MCHC (test code = MCHC) 33.1 32.0-36.0 [facility]burgEwyolqiOQIPVBNHFN9040-79-75 05:41:00 Test Item Value Reference Range Interpretation Comments RDW (test code = RDW) 15.2 11.5-14.5 [facility]burgSegdlpbPCWRZZWFAW9840-09-13 05:41:00 Test Item Value Reference Range Interpretation Comments Platelet (test code = Platelet) 372 133-450 [facility]burgMguidzdHLXWDRVGIB6722-55-56 05:41:00 Test Item Value Reference Range Interpretation Comments MPV (test code = MPV) 8.3 7.4-10.4 [facility]burgCjlqbafXOBURSKGWI6735-05-23 05:41:00 Test Item Value Reference Range Interpretation Comments INR (test code = INR) 1.07 1 0.85-1.17 [facility]burgGvpvlrmEIBONVYBPD0858-83-05 05:41:00 Test Item Value Reference Range Interpretation Comments PT (test code = PT) 13.9 s 12.0-14.7 [facility]burgZcbdcreBSAIUSJOGN5914-71-44 05:41:00 Test Item Value Reference Range Interpretation Comments PTT (test code = PTT) 34.8 s 22.9-35.8 [facility]burgFxvouswQVPNSHNBRJ9790-15-10 05:41:00 Test Item Value Reference Range Interpretation Comments RBC Morph (test code = Normal (09/14/19 11:41 RBC Morph) PM) [facility]burgRrclscgYMUXVVEPZJ2769-08-20 05:41:00 Test Item Value Reference Range Interpretation Comments Plt Morph (test code = Normal (09/14/19 11:41 Plt Morph) PM) [facility]burgEwdrzbfDPYNGHZHNY2007-76-35 05:41:00 Test Item Value Reference Range Interpretation Comments Segs (test code = Segs) 94.6 45.0-75.0 [facility]burgJnmdmskPHDLPYSGOZ5512-79-60 05:41:00 Test Item Value Reference Range Interpretation Comments Lymphocytes (test code = Lymphocytes) 3.9 20.0-40.0 [facility]burgWnfjujkLPKLYJQJCT8381-24-57 05:41:00 Test Item Value Reference Range Interpretation Comments Monocytes (test code = Monocytes) 1.1 2.0-12.0 [facility]burgPtbivqoPXONVXSEHX6153-29-93 05:41:00 Test Item Value Reference Range Interpretation Comments Eosinophils (test code = 0.1 See_Comment [A utomated message] The Eosinophils) system which ge nerated this result tra nsmitted reference range : <=4.0. The reference r maría was not used to int erpret this result as normal/abnormal . [facility]burgSopwpbuXDPXAWSYHC9639-30-61 05:41:00 Test Item Value Reference Range Interpretation Comments Basophils (test code = 0.3 See_Comment [Aut omated message] The Basophils) system which ge nerated this result tra nsmitted reference range : <=1.0. The reference r maría was not used to int erpret this result as normal/abnormal . [facility]burgTfhvnyoNGYIIIMHFS6615-57-39 05:41:00 Test Item Value Reference Range Interpretation Comments Neutrophils # (test code = Neutrophils 14.1 1.5-8.1 #) [facility]burgHjccwrzPSYNTOZFKL5015-39-64 05:41:00 Test Item Value Reference Range Interpretation Comments Lymphocytes # (test code = Lymphocytes 0.6 1.0-5.5 #) [facility]burgZygfnzqFWRQAYEMSE5866-61-12 05:41:00 Test Item Value Reference Range Interpretation Comments Monocytes # (test code 0.2 See_Comment [Aut omated message] The = Monocytes #) system which generated this result tra nsmitted reference range : <=0.8. The reference r maría was not used to int erpret this result as normal/abnormal . [facility]2019-12-30 05:41:00 Test Item Value Reference Range Interpretation Comments Ca Ion WB (test code = Ca Ion WB) 1.08 1.05-1.25 [facility]2019-12-30 05:41:00 Test Item Value Reference Range Interpretation Comments Ca Norm WB (test code = Ca Norm WB) 1.04 1.05-1.25 [facility]2019-09-15 10:10:00 Test Item Value Reference Range Interpretation Comments Glucose Lvl (test code = Glucose Lvl) 78 70-99 [facility]2019-09-15 10:10:00 Test Item Value Reference Range Interpretation Comments BUN (test code = BUN) 16 7-22 [facility]2019-09-15 10:10:00 Test Item Value Reference Range Interpretation Comments Creatinine Lvl (test code = Creatinine 0.80 0.50-1.40 Lvl) [facility]2019-09-15 10:10:00 Test Item Value Reference Range Interpretation Comments Sodium Lvl (test code = Sodium Lvl) 138 135-145 [facility]2019-09-15 10:10:00 Test Item Value Reference Range Interpretation Comments Potassium Lvl (test code = Potassium 4.2 3.5-5.1 Lvl) [facility]2019-09-15 10:10:00 Test Item Value Reference Range Interpretation Comments Chloride Lvl (test code = Chloride Lvl) 102 95-109 [facility]2019-09-15 10:10:00 Test Item Value Reference Range Interpretation Comments CO2 (test code = CO2) 30 24-32 [facility]2019-09-15 10:10:00 Test Item Value Reference Range Interpretation Comments Calcium Lvl (test code = Calcium Lvl) 9.0 8.5-10.5 [facility]2019-09-15 10:10:00 Test Item Value Reference Range Interpretation Comments AGAP (test code = AGAP) 10.2 10.0-20.0 [facility]2019-09-15 10:10:00 Test Item Value Reference Range Interpretation Comments eGFR (test code = eGFR) 72 [facility]burgWkrlxvoNWWCMQGJRZ2197-67-78 10:10:00 Test Item Value Reference Range Interpretation Comments WBC (test code = WBC) 9.7 3.7-10.4 [facility]burgYlicndjJCFBKXDNNT9887-67-00 10:10:00 Test Item Value Reference Range Interpretation Comments RBC (test code = RBC) 3.56 4.20-5.40 [facility]burgKtswuxhZBCXCLNAWF9048-92-78 10:10:00 Test Item Value Reference Range Interpretation Comments Hgb (test code = Hgb) 11.6 12.0-16.0 [facility]burgZwvyejaZPRXSFYBQG0992-87-18 10:10:00 Test Item Value Reference Range Interpretation Comments Hct (test code = Hct) 34.9 36.0-48.0 [facility]burgBnszckyFMOTBTNRLP3476-11-65 10:10:00 Test Item Value Reference Range Interpretation Comments MCV (test code = MCV) 98.1 80.0-98.0 [facility]burgVojghhdDZWXNFIAXC7778-38-55 10:10:00 Test Item Value Reference Range Interpretation Comments MCH (test code = MCH) 32.7 pg 27.0-31.0 [facility]burgOjmuavfINCJMZZHWZ2748-36-37 10:10:00 Test Item Value Reference Range Interpretation Comments MCHC (test code = MCHC) 33.4 32.0-36.0 [facility]burgKxrfnioACSUTCONFD8465-43-23 10:10:00 Test Item Value Reference Range Interpretation Comments RDW (test code = RDW) 15.5 11.5-14.5 [facility]burgStxlymeRTQZAVTALC1084-71-08 10:10:00 Test Item Value Reference Range Interpretation Comments Platelet (test code = Platelet) 288 133-450 [facility]burgPbluvwzJROQHABCTP8285-35-12 10:10:00 Test Item Value Reference Range Interpretation Comments MPV (test code = MPV) 9.0 7.4-10.4 [facility]2019-09-15 10:10:00 Test Item Value Reference Range Interpretation Comments Glucose Lvl (test code = Glucose Lvl) 78 70-99 [facility]2019-09-15 10:10:00 Test Item Value Reference Range Interpretation Comments BUN (test code = BUN) 16 7-22 [facility]2019-09-15 10:10:00 Test Item Value Reference Range Interpretation Comments Creatinine Lvl (test code = Creatinine 0.80 0.50-1.40 Lvl) [facility]2019-09-15 10:10:00 Test Item Value Reference Range Interpretation Comments Sodium Lvl (test code = Sodium Lvl) 138 135-145 [facility]2019-09-15 10:10:00 Test Item Value Reference Range Interpretation Comments Potassium Lvl (test code = Potassium 4.2 3.5-5.1 Lvl) [facility]2019-09-15 10:10:00 Test Item Value Reference Range Interpretation Comments Chloride Lvl (test code = Chloride Lvl) 102 95-109 [facility]2019-09-15 10:10:00 Test Item Value Reference Range Interpretation Comments CO2 (test code = CO2) 30 24-32 [facility]2019-09-15 10:10:00 Test Item Value Reference Range Interpretation Comments Calcium Lvl (test code = Calcium Lvl) 9.0 8.5-10.5 [facility]2019-09-15 10:10:00 Test Item Value Reference Range Interpretation Comments AGAP (test code = AGAP) 10.2 10.0-20.0 [facility]2019-09-15 10:10:00 Test Item Value Reference Range Interpretation Comments eGFR (test code = eGFR) 72 [facility]burgZctmvmeEJGVHPZIWL7563-65-24 10:10:00 Test Item Value Reference Range Interpretation Comments WBC (test code = WBC) 9.7 3.7-10.4 [facility]burgUvovxmvPRYYCTIHRX0294-21-50 10:10:00 Test Item Value Reference Range Interpretation Comments RBC (test code = RBC) 3.56 4.20-5.40 [facility]burgZbpgsqpLXJBFYYAEW8013-09-46 10:10:00 Test Item Value Reference Range Interpretation Comments Hgb (test code = Hgb) 11.6 12.0-16.0 [facility]burgCixacslURREWPFEXK8210-82-04 10:10:00 Test Item Value Reference Range Interpretation Comments Hct (test code = Hct) 34.9 36.0-48.0 [facility]burgRrabcfjRAWBONHABZ7879-18-22 10:10:00 Test Item Value Reference Range Interpretation Comments MCV (test code = MCV) 98.1 80.0-98.0 [facility]burgPiessylXSRCMSXICE4941-41-18 10:10:00 Test Item Value Reference Range Interpretation Comments MCH (test code = MCH) 32.7 pg 27.0-31.0 [facility]burgPzxuoesYXAZLNBANT2650-55-36 10:10:00 Test Item Value Reference Range Interpretation Comments MCHC (test code = MCHC) 33.4 32.0-36.0 [facility]burgPaerzlpMEOHESNEUD0595-38-13 10:10:00 Test Item Value Reference Range Interpretation Comments RDW (test code = RDW) 15.5 11.5-14.5 [facility]burgWseiexpTXSIINKQCZ1831-26-48 10:10:00 Test Item Value Reference Range Interpretation Comments Platelet (test code = Platelet) 288 133-450 [facility]burgQwrbgxwRHWEZXLXMQ7095-40-01 10:10:00 Test Item Value Reference Range Interpretation Comments MPV (test code = MPV) 9.0 7.4-10.4 [facility]2019-09-15 10:10:00 Test Item Value Reference Range Interpretation Comments Glucose Lvl (test code = Glucose Lvl) 78 70-99 [facility]2019-09-15 10:10:00 Test Item Value Reference Range Interpretation Comments BUN (test code = BUN) 16 7-22 [facility]2019-09-15 10:10:00 Test Item Value Reference Range Interpretation Comments Creatinine Lvl (test code = Creatinine 0.80 0.50-1.40 Lvl) [facility]2019-09-15 10:10:00 Test Item Value Reference Range Interpretation Comments Sodium Lvl (test code = Sodium Lvl) 138 135-145 [facility]2019-09-15 10:10:00 Test Item Value Reference Range Interpretation Comments Potassium Lvl (test code = Potassium 4.2 3.5-5.1 Lvl) [facility]2019-09-15 10:10:00 Test Item Value Reference Range Interpretation Comments Chloride Lvl (test code = Chloride Lvl) 102 95-109 [facility]2019-09-15 10:10:00 Test Item Value Reference Range Interpretation Comments CO2 (test code = CO2) 30 24-32 [facility]2019-09-15 10:10:00 Test Item Value Reference Range Interpretation Comments Calcium Lvl (test code = Calcium Lvl) 9.0 8.5-10.5 [facility]2019-09-15 10:10:00 Test Item Value Reference Range Interpretation Comments AGAP (test code = AGAP) 10.2 10.0-20.0 [facility]2019-09-15 10:10:00 Test Item Value Reference Range Interpretation Comments eGFR (test code = eGFR) 72 [facility]burgNjmxjkqYUFGSNOXQG6893-24-08 10:10:00 Test Item Value Reference Range Interpretation Comments WBC (test code = WBC) 9.7 3.7-10.4 [facility]burgLtapwdwWVPFMBPJWZ3316-43-76 10:10:00 Test Item Value Reference Range Interpretation Comments RBC (test code = RBC) 3.56 4.20-5.40 [facility]burgZbrrnnzJOEPMNILWU6723-34-80 10:10:00 Test Item Value Reference Range Interpretation Comments Hgb (test code = Hgb) 11.6 12.0-16.0 [facility]burgEsmgyifNHWPUYARQH5924-94-21 10:10:00 Test Item Value Reference Range Interpretation Comments Hct (test code = Hct) 34.9 36.0-48.0 [facility]burgFragsonKIHVHUCSRT7580-84-52 10:10:00 Test Item Value Reference Range Interpretation Comments MCV (test code = MCV) 98.1 80.0-98.0 [facility]burgGiikgrvQHOOWQXCDE5161-57-21 10:10:00 Test Item Value Reference Range Interpretation Comments MCH (test code = MCH) 32.7 pg 27.0-31.0 [facility]burgUwrhlvdTZOEPPQLLE3675-35-28 10:10:00 Test Item Value Reference Range Interpretation Comments MCHC (test code = MCHC) 33.4 32.0-36.0 [facility]burgBrnakzaAWDWLOAKXL9357-14-78 10:10:00 Test Item Value Reference Range Interpretation Comments RDW (test code = RDW) 15.5 11.5-14.5 [facility]burgSympqzuQMFGXHYATP6592-60-82 10:10:00 Test Item Value Reference Range Interpretation Comments Platelet (test code = Platelet) 288 133-450 [facility]burgFufsjnhDYYYMEJIIT2368-06-91 10:10:00 Test Item Value Reference Range Interpretation Comments MPV (test code = MPV) 9.0 7.4-10.4 [facility]2019-09-15 10:10:00 Test Item Value Reference Range Interpretation Comments Glucose Lvl (test code = Glucose Lvl) 78 70-99 [facility]2019-09-15 10:10:00 Test Item Value Reference Range Interpretation Comments BUN (test code = BUN) 16 7-22 [facility]2019-09-15 10:10:00 Test Item Value Reference Range Interpretation Comments Creatinine Lvl (test code = Creatinine 0.80 0.50-1.40 Lvl) [facility]2019-09-15 10:10:00 Test Item Value Reference Range Interpretation Comments Sodium Lvl (test code = Sodium Lvl) 138 135-145 [facility]2019-09-15 10:10:00 Test Item Value Reference Range Interpretation Comments Potassium Lvl (test code = Potassium 4.2 3.5-5.1 Lvl) [facility]2019-09-15 10:10:00 Test Item Value Reference Range Interpretation Comments Chloride Lvl (test code = Chloride Lvl) 102 95-109 [facility]2019-09-15 10:10:00 Test Item Value Reference Range Interpretation Comments CO2 (test code = CO2) 30 24-32 [facility]2019-09-15 10:10:00 Test Item Value Reference Range Interpretation Comments Calcium Lvl (test code = Calcium Lvl) 9.0 8.5-10.5 [facility]2019-09-15 10:10:00 Test Item Value Reference Range Interpretation Comments AGAP (test code = AGAP) 10.2 10.0-20.0 [facility]2019-09-15 10:10:00 Test Item Value Reference Range Interpretation Comments eGFR (test code = eGFR) 72 [facility]burgPdjdmayMBCRTZZPHI5040-87-06 10:10:00 Test Item Value Reference Range Interpretation Comments WBC (test code = WBC) 9.7 3.7-10.4 [facility]burgNpgpqliYCDBUKNLSY6671-69-04 10:10:00 Test Item Value Reference Range Interpretation Comments RBC (test code = RBC) 3.56 4.20-5.40 [facility]burgLwptzbhEDEONCGQQT0877-13-80 10:10:00 Test Item Value Reference Range Interpretation Comments Hgb (test code = Hgb) 11.6 12.0-16.0 [facility]burgWjrgiviTWSGRQXABR1399-76-83 10:10:00 Test Item Value Reference Range Interpretation Comments Hct (test code = Hct) 34.9 36.0-48.0 [facility]burgWcxnxebFHSNTPZDPM7976-27-84 10:10:00 Test Item Value Reference Range Interpretation Comments MCV (test code = MCV) 98.1 80.0-98.0 [facility]burgKhxvaaiNXUAIOYKHQ1169-67-93 10:10:00 Test Item Value Reference Range Interpretation Comments MCH (test code = MCH) 32.7 pg 27.0-31.0 [facility]burgZqwzszwVXGBNMZUDM4960-90-12 10:10:00 Test Item Value Reference Range Interpretation Comments MCHC (test code = MCHC) 33.4 32.0-36.0 [facility]burgVkrhvorRLHIFLWRRZ8534-19-24 10:10:00 Test Item Value Reference Range Interpretation Comments RDW (test code = RDW) 15.5 11.5-14.5 [facility]burgWcsuzncQHEXDGLFLN7089-95-57 10:10:00 Test Item Value Reference Range Interpretation Comments Platelet (test code = Platelet) 288 133-450 [facility]burgNzdbzxfOHAWHHPCAI1429-47-55 10:10:00 Test Item Value Reference Range Interpretation Comments MPV (test code = MPV) 9.0 7.4-10.4 [facility]2019-09-15 10:10:00 Test Item Value Reference Range Interpretation Comments Glucose Lvl (test code = Glucose Lvl) 78 70-99 [facility]2019-09-15 10:10:00 Test Item Value Reference Range Interpretation Comments BUN (test code = BUN) 16 7-22 [facility]2019-09-15 10:10:00 Test Item Value Reference Range Interpretation Comments Creatinine Lvl (test code = Creatinine 0.80 0.50-1.40 Lvl) [facility]2019-09-15 10:10:00 Test Item Value Reference Range Interpretation Comments Sodium Lvl (test code = Sodium Lvl) 138 135-145 [facility]2019-09-15 10:10:00 Test Item Value Reference Range Interpretation Comments Potassium Lvl (test code = Potassium 4.2 3.5-5.1 Lvl) [facility]2019-09-15 10:10:00 Test Item Value Reference Range Interpretation Comments Chloride Lvl (test code = Chloride Lvl) 102 95-109 [facility]2019-09-15 10:10:00 Test Item Value Reference Range Interpretation Comments CO2 (test code = CO2) 30 24-32 [facility]2019-09-15 10:10:00 Test Item Value Reference Range Interpretation Comments Calcium Lvl (test code = Calcium Lvl) 9.0 8.5-10.5 [facility]2019-09-15 10:10:00 Test Item Value Reference Range Interpretation Comments AGAP (test code = AGAP) 10.2 10.0-20.0 [facility]2019-09-15 10:10:00 Test Item Value Reference Range Interpretation Comments eGFR (test code = eGFR) 72 [facility]burgRuheloiMQQIDVJYGR4939-64-40 10:10:00 Test Item Value Reference Range Interpretation Comments WBC (test code = WBC) 9.7 3.7-10.4 [facility]burgAdltffkBRIPGBSONP7268-95-30 10:10:00 Test Item Value Reference Range Interpretation Comments RBC (test code = RBC) 3.56 4.20-5.40 [facility]burgVrytngpKRAUHWGVXN8679-83-07 10:10:00 Test Item Value Reference Range Interpretation Comments Hgb (test code = Hgb) 11.6 12.0-16.0 [facility]burgBzgkenqMANEASXEVI3402-57-29 10:10:00 Test Item Value Reference Range Interpretation Comments Hct (test code = Hct) 34.9 36.0-48.0 [facility]burgMbbucwqBQPGHXQBFI5901-51-68 10:10:00 Test Item Value Reference Range Interpretation Comments MCV (test code = MCV) 98.1 80.0-98.0 [facility]burgGjhozcpMZVXWNIWLL8353-16-01 10:10:00 Test Item Value Reference Range Interpretation Comments MCH (test code = MCH) 32.7 pg 27.0-31.0 [facility]burgVkbqxzwNPMYYRPJET0511-44-80 10:10:00 Test Item Value Reference Range Interpretation Comments MCHC (test code = MCHC) 33.4 32.0-36.0 [facility]burgVqglkrgLROBXLNHVU0534-53-26 10:10:00 Test Item Value Reference Range Interpretation Comments RDW (test code = RDW) 15.5 11.5-14.5 [facility]burgTzislowFIPTHVWEKP6619-83-01 10:10:00 Test Item Value Reference Range Interpretation Comments Platelet (test code = Platelet) 288 133-450 [facility]burgTjnzzeoBWWSWDIING8903-06-93 10:10:00 Test Item Value Reference Range Interpretation Comments MPV (test code = MPV) 9.0 7.4-10.4 [facility]2019-09-15 10:10:00 Test Item Value Reference Range Interpretation Comments Glucose Lvl (test code = Glucose Lvl) 78 70-99 [facility]2019-09-15 10:10:00 Test Item Value Reference Range Interpretation Comments BUN (test code = BUN) 16 7-22 [facility]2019-09-15 10:10:00 Test Item Value Reference Range Interpretation Comments Creatinine Lvl (test code = Creatinine 0.80 0.50-1.40 Lvl) [facility]2019-09-15 10:10:00 Test Item Value Reference Range Interpretation Comments Sodium Lvl (test code = Sodium Lvl) 138 135-145 [facility]2019-09-15 10:10:00 Test Item Value Reference Range Interpretation Comments Potassium Lvl (test code = Potassium 4.2 3.5-5.1 Lvl) [facility]2019-09-15 10:10:00 Test Item Value Reference Range Interpretation Comments Chloride Lvl (test code = Chloride Lvl) 102 95-109 [facility]2019-09-15 10:10:00 Test Item Value Reference Range Interpretation Comments CO2 (test code = CO2) 30 24-32 [facility]2019-09-15 10:10:00 Test Item Value Reference Range Interpretation Comments Calcium Lvl (test code = Calcium Lvl) 9.0 8.5-10.5 [facility]2019-09-15 10:10:00 Test Item Value Reference Range Interpretation Comments AGAP (test code = AGAP) 10.2 10.0-20.0 [facility]2019-09-15 10:10:00 Test Item Value Reference Range Interpretation Comments eGFR (test code = eGFR) 72 [facility]WaetoajJQRWKDJEGS1026-07-69 10:10:00 Test Item Value Reference Range Interpretation Comments WBC (test code = WBC) 9.7 3.7-10.4 [facility]burgKvgjemjTHJRRZWRVZ6474-97-85 10:10:00 Test Item Value Reference Range Interpretation Comments RBC (test code = RBC) 3.56 4.20-5.40 [facility]burgRfttyblBGXLQJYNGT8704-44-52 10:10:00 Test Item Value Reference Range Interpretation Comments Hgb (test code = Hgb) 11.6 12.0-16.0 [facility]burgLshkfmnCMAMBEDKYJ6126-42-14 10:10:00 Test Item Value Reference Range Interpretation Comments Hct (test code = Hct) 34.9 36.0-48.0 [facility]burgYhlugzmCXIAPLUPYT7847-49-18 10:10:00 Test Item Value Reference Range Interpretation Comments MCV (test code = MCV) 98.1 80.0-98.0 [facility]burgDdksjlcNXNOYCUEEE3305-66-55 10:10:00 Test Item Value Reference Range Interpretation Comments MCH (test code = MCH) 32.7 pg 27.0-31.0 [facility]burgVlwtqmlOIGPOJGLBM7199-73-09 10:10:00 Test Item Value Reference Range Interpretation Comments MCHC (test code = MCHC) 33.4 32.0-36.0 [facility]burgFlnfugtQXXFYGONWW5808-05-04 10:10:00 Test Item Value Reference Range Interpretation Comments RDW (test code = RDW) 15.5 11.5-14.5 [facility]inburgNscbzukNRPZXAXHMF9450-28-52 10:10:00 Test Item Value Reference Range Interpretation Comments Platelet (test code = Platelet) 288 133-450 [facility]inburgUephgzvDHMLIHOVIT6735-84-97 10:10:00 Test Item Value Reference Range Interpretation Comments MPV (test code = MPV) 9.0 7.4-10.4 [facility]2019-09-14 08:06:00 Test Item Value Reference Range Interpretation Comments Magnesium Lvl (test code = Magnesium 2.2 1.8-2.4 Lvl) [facility]2019-09-14 08:06:00 Test Item Value Reference Range Interpretation Comments Phosphorus (test code = Phosphorus) 3.7 2.5-4.5 [facility]QmhusggUTJXJGHSEYZS0970-30-24 08:06:00 Test Item Value Reference Range Interpretation Comments AGAP (test code = AGAP) 11.3 10.0-20.0 [facility] CenterHhafojhVUNNWZDUDMHC6238-79-58 08:06:00 Test Item Value Reference Range Interpretation Comments Glucose Lvl (test code = Glucose Lvl) 88 70-99 [facility] CenterXemxqolFUNZLUDFDHSS8429-36-42 08:06:00 Test Item Value Reference Range Interpretation Comments BUN (test code = BUN) 21 7-22 [facility] CenterUtelnorWCTLTGCMKNBG6769-01-39 08:06:00 Test Item Value Reference Range Interpretation Comments Creatinine Lvl (test code = Creatinine 0.74 0.50-1.40 Lvl) [facility] CenterQhsyvawTUTPTMIYPAIR4156-01-03 08:06:00 Test Item Value Reference Range Interpretation Comments Sodium Lvl (test code = Sodium Lvl) 137 135-145 [facility] CenterGoizbuvUFFWEGJFJLMU6629-67-69 08:06:00 Test Item Value Reference Range Interpretation Comments Potassium Lvl (test code = Potassium 4.3 3.5-5.1 Lvl) [facility] CenterAggvzbiKKQNJREBAEIJ1997-31-28 08:06:00 Test Item Value Reference Range Interpretation Comments Chloride Lvl (test code = Chloride Lvl) 102 95-109 [place] 917769-09-14 08:06:00 Test Item Value Reference Range Interpretation Comments CO2 (test code = CO2) 28 24-32 [facility] CenterWokzxlkWXPBGDDGRQIB1605-03-01 08:06:00 Test Item Value Reference Range Interpretation Comments Calcium Lvl (test code = Calcium Lvl) 8.5 8.5-10.5 [facility] CenterXafxvnjSQHQQBEYCFFA4138-45-39 08:06:00 Test Item Value Reference Range Interpretation Comments eGFR (test code = eGFR) 79 [facility]inburgOexouakWZNTMHJAPM1991-22-03 08:06:00 Test Item Value Reference Range Interpretation Comments WBC (test code = WBC) 9.9 3.7-10.4 [facility]burgWvdneyjLIFTYGNBMU6177-94-25 08:06:00 Test Item Value Reference Range Interpretation Comments RBC (test code = RBC) 3.57 4.20-5.40 [facility]inburgBwslubkJKYWLFNWTW1329-79-09 08:06:00 Test Item Value Reference Range Interpretation Comments Hgb (test code = Hgb) 11.7 12.0-16.0 [facility]burgObfgyobWVBIFJVCZH6264-64-04 08:06:00 Test Item Value Reference Range Interpretation Comments Hct (test code = Hct) 35.0 36.0-48.0 [facility]inburgGzoilgdDEXCSDTBLU7900-92-50 08:06:00 Test Item Value Reference Range Interpretation Comments MCV (test code = MCV) 98.0 80.0-98.0 [facility]burgPkldumpPRUVAGYCIG6583-95-28 08:06:00 Test Item Value Reference Range Interpretation Comments MCH (test code = MCH) 32.9 pg 27.0-31.0 [facility] EdinburgBdtmgmeOEDJANBRZO7586-86-42 08:06:00 Test Item Value Reference Range Interpretation Comments MCHC (test code = MCHC) 33.5 32.0-36.0 [facility]inburgOadrbarNDTUHBGRMB4469-13-96 08:06:00 Test Item Value Reference Range Interpretation Comments RDW (test code = RDW) 15.2 11.5-14.5 [facility]inburgItconlsXVIIRAPFZW2457-56-95 08:06:00 Test Item Value Reference Range Interpretation Comments Platelet (test code = Platelet) 244 133-450 [facility]burgGswoxgrOMOLBPQCUI5336-93-57 08:06:00 Test Item Value Reference Range Interpretation Comments MPV (test code = MPV) 9.1 7.4-10.4 [facility]2019-09-14 08:06:00 Test Item Value Reference Range Interpretation Comments Magnesium Lvl (test code = Magnesium 2.2 1.8-2.4 Lvl) [facility]2019-09-14 08:06:00 Test Item Value Reference Range Interpretation Comments Phosphorus (test code = Phosphorus) 3.7 2.5-4.5 [facility] CenterAbyoyuvUQUCCQYTRKNM1721-86-90 08:06:00 Test Item Value Reference Range Interpretation Comments AGAP (test code = AGAP) 11.3 10.0-20.0 [facility] CenterRlozsaeMFFIGSTEJGAU5111-30-30 08:06:00 Test Item Value Reference Range Interpretation Comments Glucose Lvl (test code = Glucose Lvl) 88 70-99 [facility] CenterUercsfiWQAATWYJEUFI4977-29-59 08:06:00 Test Item Value Reference Range Interpretation Comments BUN (test code = BUN) 21 7-22 [facility] CenterTjcjgizBXWQEHTXVMAD6058-61-79 08:06:00 Test Item Value Reference Range Interpretation Comments Creatinine Lvl (test code = Creatinine 0.74 0.50-1.40 Lvl) [facility] CenterThrdkvqFLKIOITHNWUT1038-23-70 08:06:00 Test Item Value Reference Range Interpretation Comments Sodium Lvl (test code = Sodium Lvl) 137 135-145 [facility] CenterUshpztxPEPUGKBRRWDS6064-67-60 08:06:00 Test Item Value Reference Range Interpretation Comments Potassium Lvl (test code = Potassium 4.3 3.5-5.1 Lvl) [facility] CenterFqhjcxqKRTEKCSIULFI2250-49-81 08:06:00 Test Item Value Reference Range Interpretation Comments Chloride Lvl (test code = Chloride Lvl) 102 95-109 [facility] CenterOgwumtsFITEVJRDDDPX2118-48-74 08:06:00 Test Item Value Reference Range Interpretation Comments CO2 (test code = CO2) 28 24-32 [facility] CenterJdyuysoVCUZISGMVHOG8780-40-10 08:06:00 Test Item Value Reference Range Interpretation Comments Calcium Lvl (test code = Calcium Lvl) 8.5 8.5-10.5 [facility] CenterRywskcpJNQAKYYDRUXA6549-67-05 08:06:00 Test Item Value Reference Range Interpretation Comments eGFR (test code = eGFR) 79 [facility]DfdafyqIRABOGNVCV9296-37-81 08:06:00 Test Item Value Reference Range Interpretation Comments WBC (test code = WBC) 9.9 3.7-10.4 [facility] HospitalRvuftfkRKPGEAHEFE6333-52-88 08:06:00 Test Item Value Reference Range Interpretation Comments RBC (test code = RBC) 3.57 4.20-5.40 [facility] HospitalWhjowtgJHEJQDQTQI4496-83-08 08:06:00 Test Item Value Reference Range Interpretation Comments Hgb (test code = Hgb) 11.7 12.0-16.0 [facility] HospitalDspygvqCMCSZTQBYQ8305-53-06 08:06:00 Test Item Value Reference Range Interpretation Comments Hct (test code = Hct) 35.0 36.0-48.0 [facility] HospitalXvyyxrpARMSZJRDZA7375-77-68 08:06:00 Test Item Value Reference Range Interpretation Comments MCV (test code = MCV) 98.0 80.0-98.0 [facility] HospitalVbobwamMMBUVMFJBL5644-70-00 08:06:00 Test Item Value Reference Range Interpretation Comments MCH (test code = MCH) 32.9 pg 27.0-31.0 [facility] HospitalRfjqnfcWENPVNLVHB2527-07-40 08:06:00 Test Item Value Reference Range Interpretation Comments MCHC (test code = MCHC) 33.5 32.0-36.0 [facility] HospitalTycbprvDPGZJMGILG3294-26-71 08:06:00 Test Item Value Reference Range Interpretation Comments RDW (test code = RDW) 15.2 11.5-14.5 [facility] HospitalEinfhvjYMFTSDGBIN5706-73-21 08:06:00 Test Item Value Reference Range Interpretation Comments Platelet (test code = Platelet) 244 133-450 [facility] HospitalYiivxtvXSKFSLHKRU1219-20-93 08:06:00 Test Item Value Reference Range Interpretation Comments MPV (test code = MPV) 9.1 7.4-10.4 [facility]CHEM IXSYB5318-35-25 08:06:00 Test Item Value Reference Range Interpretation Comments Magnesium Lvl (test code = Magnesium 2.2 1.8-2.4 Lvl) [facility]CHE[facility] FMQTS1005-03-35 08:06:00 Test Item Value Reference Range Interpretation Comments Phosphorus (test code = Phosphorus) 3.7 2.5-4.5 [facility] CampusWexrweaVLGEDFRBJMXM2782-63-68 08:06:00 Test Item Value Reference Range Interpretation Comments AGAP (test code = AGAP) 11.3 10.0-20.0 [facility] CenterMdlmladAYKWDTZHTZQF9914-73-09 08:06:00 Test Item Value Reference Range Interpretation Comments Glucose Lvl (test code = Glucose Lvl) 88 70-99 [facility] CenterWzyfeqlBSQIJBTQRIKJ9002-34-93 08:06:00 Test Item Value Reference Range Interpretation Comments BUN (test code = BUN) 21 7-22 [facility] CenterSzzqqedTUAOLCYKZJBB2374-52-61 08:06:00 Test Item Value Reference Range Interpretation Comments Creatinine Lvl (test code = Creatinine 0.74 0.50-1.40 Lvl) [facility] CenterEembasiXUXQNQWMSSZW0779-38-75 08:06:00 Test Item Value Reference Range Interpretation Comments Sodium Lvl (test code = Sodium Lvl) 137 135-145 [facility] CenterLspazqmOWXUMPUJYVYB8698-73-30 08:06:00 Test Item Value Reference Range Interpretation Comments Potassium Lvl (test code = Potassium 4.3 3.5-5.1 Lvl) [facility] CenterAevohbhJAZMLPNQSUSA9391-65-17 08:06:00 Test Item Value Reference Range Interpretation Comments Chloride Lvl (test code = Chloride Lvl) 102 95-109 [facility] CenterFrdvmglGAXVNVBJRLBR8370-47-12 08:06:00 Test Item Value Reference Range Interpretation Comments CO2 (test code = CO2) 28 24-32 [facility] CenterXpcqkviSQNCVSUNANLQ4054-30-52 08:06:00 Test Item Value Reference Range Interpretation Comments Calcium Lvl (test code = Calcium Lvl) 8.5 8.5-10.5 [facility] CenterZkvyypwNNMIMZIOTFBC7606-54-54 08:06:00 Test Item Value Reference Range Interpretation Comments eGFR (test code = eGFR) 79 [facility]burgHxwydhlZOOYUCYACS5102-13-14 08:06:00 Test Item Value Reference Range Interpretation Comments WBC (test code = WBC) 9.9 3.7-10.4 [facility]burgBhlvfiwSIWCYSMIWP0739-39-23 08:06:00 Test Item Value Reference Range Interpretation Comments RBC (test code = RBC) 3.57 4.20-5.40 [facility]burgKxmybtpHIXQAWPQLP2579-80-34 08:06:00 Test Item Value Reference Range Interpretation Comments Hgb (test code = Hgb) 11.7 12.0-16.0 [facility]burgUfucarlSQBTLWVXPG8698-48-86 08:06:00 Test Item Value Reference Range Interpretation Comments Hct (test code = Hct) 35.0 36.0-48.0 [facility]burgEauohryHPKEQWCJEK3774-32-87 08:06:00 Test Item Value Reference Range Interpretation Comments MCV (test code = MCV) 98.0 80.0-98.0 [facility]burgQhgeufgRBZIAUHZZM6167-01-80 08:06:00 Test Item Value Reference Range Interpretation Comments MCH (test code = MCH) 32.9 pg 27.0-31.0 [facility]burgGxisaslLDNCHFQRQG7835-22-99 08:06:00 Test Item Value Reference Range Interpretation Comments MCHC (test code = MCHC) 33.5 32.0-36.0 [facility]burgJbrvffxYGFXVVECUB3378-65-50 08:06:00 Test Item Value Reference Range Interpretation Comments RDW (test code = RDW) 15.2 11.5-14.5 [facility]burgFgrbdacIMPTESWUOH4783-38-19 08:06:00 Test Item Value Reference Range Interpretation Comments Platelet (test code = Platelet) 244 133-450 [facility]burgNdcaytuJYGJKFOOPL3327-40-03 08:06:00 Test Item Value Reference Range Interpretation Comments MPV (test code = MPV) 9.1 7.4-10.4 [facility]2019-09-14 08:06:00 Test Item Value Reference Range Interpretation Comments Magnesium Lvl (test code = Magnesium 2.2 1.8-2.4 Lvl) [facility]2019-09-14 08:06:00 Test Item Value Reference Range Interpretation Comments Phosphorus (test code = Phosphorus) 3.7 2.5-4.5 [facility]JzcxqjqXQPFATPBQBDC1723-03-23 08:06:00 Test Item Value Reference Range Interpretation Comments AGAP (test code = AGAP) 11.3 10.0-20.0 [facility] CenterMkxigwlQTIMIDFQTDQK8018-59-94 08:06:00 Test Item Value Reference Range Interpretation Comments Glucose Lvl (test code = Glucose Lvl) 88 70-99 [facility] CenterHkcxtfjXWREEVNVHDHQ0681-94-56 08:06:00 Test Item Value Reference Range Interpretation Comments BUN (test code = BUN) 21 7-22 [facility] CenterDbvqufzDYRBEBYUHWKR2556-21-68 08:06:00 Test Item Value Reference Range Interpretation Comments Creatinine Lvl (test code = Creatinine 0.74 0.50-1.40 Lvl) [facility] CenterGgtgvmfMVNYCUKBNYBB5835-26-14 08:06:00 Test Item Value Reference Range Interpretation Comments Sodium Lvl (test code = Sodium Lvl) 137 135-145 [facility] CenterZtupzsaZNPCAETOEPNE1663-25-48 08:06:00 Test Item Value Reference Range Interpretation Comments Potassium Lvl (test code = Potassium 4.3 3.5-5.1 Lvl) [facility] CenterWphwjmpXNXUKMWXHOSP9369-22-63 08:06:00 Test Item Value Reference Range Interpretation Comments Chloride Lvl (test code = Chloride Lvl) 102 95-109 [facility] CenterGnyhhqjREEDKERIDYBU7681-82-47 08:06:00 Test Item Value Reference Range Interpretation Comments CO2 (test code = CO2) 28 24-32 [facility] CenterLmogyyhACIAPBSZACQC3196-55-50 08:06:00 Test Item Value Reference Range Interpretation Comments Calcium Lvl (test code = Calcium Lvl) 8.5 8.5-10.5 [facility] CenterUbernwmJUJORTBBYXLA0036-09-30 08:06:00 Test Item Value Reference Range Interpretation Comments eGFR (test code = eGFR) 79 [facility]burgHtqtptfLGVLKIZGTU1339-05-52 08:06:00 Test Item Value Reference Range Interpretation Comments WBC (test code = WBC) 9.9 3.7-10.4 [facility]burgVdipplcHWUMLZQDBS5674-94-75 08:06:00 Test Item Value Reference Range Interpretation Comments RBC (test code = RBC) 3.57 4.20-5.40 [facility]burgXbmdrpgUEATOQXLFH3247-68-23 08:06:00 Test Item Value Reference Range Interpretation Comments Hgb (test code = Hgb) 11.7 12.0-16.0 [facility]burgXkhkrmeUSISHDADZJ9981-08-37 08:06:00 Test Item Value Reference Range Interpretation Comments Hct (test code = Hct) 35.0 36.0-48.0 [facility]burgNcbxjxvHWUIUXXQYQ2839-94-23 08:06:00 Test Item Value Reference Range Interpretation Comments MCV (test code = MCV) 98.0 80.0-98.0 [facility]burgScuqrvyQTBVOFJEJH5942-94-74 08:06:00 Test Item Value Reference Range Interpretation Comments MCH (test code = MCH) 32.9 pg 27.0-31.0 [facility]burgGeukjjvBQZPUBVRBZ3346-91-55 08:06:00 Test Item Value Reference Range Interpretation Comments MCHC (test code = MCHC) 33.5 32.0-36.0 [facility]inburgNcaspgiGKAEUBVMYK7216-08-60 08:06:00 Test Item Value Reference Range Interpretation Comments RDW (test code = RDW) 15.2 11.5-14.5 [facility]burgKlnipevJCCSDEKBEI6206-03-75 08:06:00 Test Item Value Reference Range Interpretation Comments Platelet (test code = Platelet) 244 133-450 [facility] EdinburgYbcbjfcPHWVDKNKIX3805-58-85 08:06:00 Test Item Value Reference Range Interpretation Comments MPV (test code = MPV) 9.1 7.4-10.4 [facility]2019-09-14 08:06:00 Test Item Value Reference Range Interpretation Comments Magnesium Lvl (test code = Magnesium 2.2 1.8-2.4 Lvl) [facility]2019-09-14 08:06:00 Test Item Value Reference Range Interpretation Comments Phosphorus (test code = Phosphorus) 3.7 2.5-4.5 [facility] CenterMqdrzceUZAYAKQUMDTO1892-94-11 08:06:00 Test Item Value Reference Range Interpretation Comments AGAP (test code = AGAP) 11.3 10.0-20.0 [facility] CenterRmkqntcENEWGLNEJJEN4976-13-21 08:06:00 Test Item Value Reference Range Interpretation Comments Glucose Lvl (test code = Glucose Lvl) 88 70-99 [facility] CenterPciuwvqCOQZNBXCSNAN7209-80-72 08:06:00 Test Item Value Reference Range Interpretation Comments BUN (test code = BUN) 21 7-22 [facility] CenterNqgrjzyYKFCHSZYZGED8929-16-44 08:06:00 Test Item Value Reference Range Interpretation Comments Creatinine Lvl (test code = Creatinine 0.74 0.50-1.40 Lvl) [facility] CenterKuluhczSWLQVHSGNHNF4966-81-79 08:06:00 Test Item Value Reference Range Interpretation Comments Sodium Lvl (test code = Sodium Lvl) 137 135-145 [facility] CenterVfcaeklJBUBRDUHYFYH8912-10-08 08:06:00 Test Item Value Reference Range Interpretation Comments Potassium Lvl (test code = Potassium 4.3 3.5-5.1 Lvl) [facility] CenterKvozkpeFAYBZGGFLZGZ1246-55-62 08:06:00 Test Item Value Reference Range Interpretation Comments Chloride Lvl (test code = Chloride Lvl) 102 95-109 [facility] CenterJvqxzvcGTTCLSDIPNBP9844-77-28 08:06:00 Test Item Value Reference Range Interpretation Comments CO2 (test code = CO2) 28 24-32 [facility] CenterBsaflsjQSFEZATJEEAY4467-23-75 08:06:00 Test Item Value Reference Range Interpretation Comments Calcium Lvl (test code = Calcium Lvl) 8.5 8.5-10.5 [facility] CenterGcneegiEMLOCRMAJUVX0082-24-88 08:06:00 Test Item Value Reference Range Interpretation Comments eGFR (test code = eGFR) 79 [facility]burgFpbwvhuTMZJHBFVRQ7949-01-00 08:06:00 Test Item Value Reference Range Interpretation Comments WBC (test code = WBC) 9.9 3.7-10.4 [facility]burgWgaknttEANEFTIQUU8969-68-19 08:06:00 Test Item Value Reference Range Interpretation Comments RBC (test code = RBC) 3.57 4.20-5.40 [facility]burgEyiztrvLHUDMVVZLM6281-19-62 08:06:00 Test Item Value Reference Range Interpretation Comments Hgb (test code = Hgb) 11.7 12.0-16.0 [facility]burgFlqpvkzKVQXXJXFDL4957-10-25 08:06:00 Test Item Value Reference Range Interpretation Comments Hct (test code = Hct) 35.0 36.0-48.0 [facility]inburgNfwbjdeLMCNMIKINF8622-53-68 08:06:00 Test Item Value Reference Range Interpretation Comments MCV (test code = MCV) 98.0 80.0-98.0 [facility]inburgTtubdstVKEVLLENOG1723-96-66 08:06:00 Test Item Value Reference Range Interpretation Comments MCH (test code = MCH) 32.9 pg 27.0-31.0 [facility]burgWmmzzazQBOCZSTHUS6169-51-58 08:06:00 Test Item Value Reference Range Interpretation Comments MCHC (test code = MCHC) 33.5 32.0-36.0 [facility]burgXxfykeoJPZJQHPBHE8600-90-45 08:06:00 Test Item Value Reference Range Interpretation Comments RDW (test code = RDW) 15.2 11.5-14.5 [facility] EdinburgZljaxsfCAWTHNICVL0561-31-17 08:06:00 Test Item Value Reference Range Interpretation Comments Platelet (test code = Platelet) 244 133-450 [facility] HospitalRjusuxzUYPWCBWQJD5607-85-55 08:06:00 Test Item Value Reference Range Interpretation Comments MPV (test code = MPV) 9.1 7.4-10.4 [facility] FWZZR0327-18-15 08:06:00 Test Item Value Reference Range Interpretation Comments Magnesium Lvl (test code = Magnesium 2.2 1.8-2.4 Lvl) [facility]2019-09-14 08:06:00 Test Item Value Reference Range Interpretation Comments Phosphorus (test code = Phosphorus) 3.7 2.5-4.5 [facility]BgdnbsmGGGMXXITTTSM7141-36-92 08:06:00 Test Item Value Reference Range Interpretation Comments AGAP (test code = AGAP) 11.3 10.0-20.0 [facility] CenterVymucpoBGMWFFCUQLOZ8164-44-34 08:06:00 Test Item Value Reference Range Interpretation Comments Glucose Lvl (test code = Glucose Lvl) 88 70-99 [facility] CenterHadxgvjSGZPXXWCAMNB1598-20-85 08:06:00 Test Item Value Reference Range Interpretation Comments BUN (test code = BUN) 21 7-22 [facility] CenterMusrkhpGIZXBRCPLVMO6922-10-46 08:06:00 Test Item Value Reference Range Interpretation Comments Creatinine Lvl (test code = Creatinine 0.74 0.50-1.40 Lvl) [facility] CenterWcxongeLYIKLCQKSSFS7995-58-01 08:06:00 Test Item Value Reference Range Interpretation Comments Sodium Lvl (test code = Sodium Lvl) 137 135-145 [facility] CenterYnujxiwSUCRNQKVSNCN0363-59-63 08:06:00 Test Item Value Reference Range Interpretation Comments Potassium Lvl (test code = Potassium 4.3 3.5-5.1 Lvl) [facility] CenterIrxjpyhLDHXOWNGZGXK0727-76-55 08:06:00 Test Item Value Reference Range Interpretation Comments Chloride Lvl (test code = Chloride Lvl) 102 95-109 [facility] CenterRyhgbiuWWPQKRKHGXQO2701-87-49 08:06:00 Test Item Value Reference Range Interpretation Comments CO2 (test code = CO2) 28 24-32 [facility] CenterMwtfpghEIZIPSPMWPXO4961-41-03 08:06:00 Test Item Value Reference Range Interpretation Comments Calcium Lvl (test code = Calcium Lvl) 8.5 8.5-10.5 [facility] CenterMpkdtsuXHJIOSCSHSQI7519-89-91 08:06:00 Test Item Value Reference Range Interpretation Comments eGFR (test code = eGFR) 79 [facility] HospitalTvknekvSHVXZRBCCQ6516-14-76 08:06:00 Test Item Value Reference Range Interpretation Comments WBC (test code = WBC) 9.9 3.7-10.4 [facility]burgRfdfxreMZKQKETCJY9096-66-48 08:06:00 Test Item Value Reference Range Interpretation Comments RBC (test code = RBC) 3.57 4.20-5.40 [facility]inburgSnrthlxAHOIKVEXCY2059-93-79 08:06:00 Test Item Value Reference Range Interpretation Comments Hgb (test code = Hgb) 11.7 12.0-16.0 [facility] HospitalPmnwejrMNLNJZEWVE2952-61-90 08:06:00 Test Item Value Reference Range Interpretation Comments Hct (test code = Hct) 35.0 36.0-48.0 [facility]inburgFegursmPMVVWIJLOE0723-82-37 08:06:00 Test Item Value Reference Range Interpretation Comments MCV (test code = MCV) 98.0 80.0-98.0 [facility]burgEufdzdnOMEXGFRLHL9659-82-78 08:06:00 Test Item Value Reference Range Interpretation Comments MCH (test code = MCH) 32.9 pg 27.0-31.0 [facility] HospitalSxtdohyDDYNRGGZBD9921-49-24 08:06:00 Test Item Value Reference Range Interpretation Comments MCHC (test code = MCHC) 33.5 32.0-36.0 [facility]inburgPbmzoisHTRMDTSKED3537-37-19 08:06:00 Test Item Value Reference Range Interpretation Comments RDW (test code = RDW) 15.2 11.5-14.5 [facility]burgZapsipbRLQKLJJCGS6221-31-71 08:06:00 Test Item Value Reference Range Interpretation Comments Platelet (test code = Platelet) 244 133-450 [facility]JweohsjQDEIKVLSQI6268-84-54 08:06:00 Test Item Value Reference Range Interpretation Comments MPV (test code = MPV) 9.1 7.4-10.4 [facility] [id number] 07:47:00 Test Item Value Reference Range Interpretation Comments Magnesium Lvl (test code = Magnesium 2.3 1.8-2.4 Lvl) [facility] [id number] 07:47:00 Test Item Value Reference Range Interpretation Comments Phosphorus (test code = Phosphorus) 3.1 2.5-4.5 [facility]2019-09-13 07:47:00 Test Item Value Reference Range Interpretation Comments Procalcitonin Lvl (test 0.93 See_Comment [Au tomated message] code = Procalcitonin Lvl) Th e system which generated this result transmitted ref erence range: <=0.10. The reference range was not used to interpr et this result as normal/abnormal . [facility]2019-09-13 07:47:00 Test Item Value Reference Range Interpretation Comments Glucose Lvl (test code = Glucose Lvl) 88 70-99 [facility]2019-09-13 07:47:00 Test Item Value Reference Range Interpretation Comments BUN (test code = BUN) 21 7-22 [facility]2019-09-13 07:47:00 Test Item Value Reference Range Interpretation Comments Creatinine Lvl (test code = Creatinine 0.64 0.50-1.40 Lvl) [facility]2019-09-13 07:47:00 Test Item Value Reference Range Interpretation Comments Sodium Lvl (test code = Sodium Lvl) 141 135-145 [facility]2019-09-13 07:47:00 Test Item Value Reference Range Interpretation Comments Potassium Lvl (test code = Potassium 4.6 3.5-5.1 Lvl) [facility]2019-09-13 07:47:00 Test Item Value Reference Range Interpretation Comments Chloride Lvl (test code = Chloride Lvl) 104 95-109 [facility]2019-09-13 07:47:00 Test Item Value Reference Range Interpretation Comments CO2 (test code = CO2) 27 24-32 [facility]2019-09-13 07:47:00 Test Item Value Reference Range Interpretation Comments Calcium Lvl (test code = Calcium Lvl) 8.7 8.5-10.5 [facility]2019-09-13 07:47:00 Test Item Value Reference Range Interpretation Comments eGFR (test code = eGFR) 87 [facility]2019-09-13 07:47:00 Test Item Value Reference Range Interpretation Comments AGAP (test code = AGAP) 14.6 10.0-20.0 [facility]burgGvfkkouXYGEKHVWXU8597-93-53 07:47:00 Test Item Value Reference Range Interpretation Comments WBC (test code = WBC) 10.6 3.7-10.4 [facility]burgOblljsfTHVXLAIRNX8503-82-72 07:47:00 Test Item Value Reference Range Interpretation Comments RBC (test code = RBC) 3.73 4.20-5.40 [facility]burgAisqznmKKJMREOVXR3675-59-90 07:47:00 Test Item Value Reference Range Interpretation Comments Hgb (test code = Hgb) 12.4 12.0-16.0 [facility]burgUpsayufPZOYBHSYCM8769-75-92 07:47:00 Test Item Value Reference Range Interpretation Comments Hct (test code = Hct) 36.3 36.0-48.0 [facility]burgUcnxlzsEQRQQXYNGP0483-64-59 07:47:00 Test Item Value Reference Range Interpretation Comments MCV (test code = MCV) 97.3 80.0-98.0 [facility]burgBdixonvPDLNVKINYQ6693-95-13 07:47:00 Test Item Value Reference Range Interpretation Comments MCH (test code = MCH) 33.2 pg 27.0-31.0 [facility]burgHdeddwxJBOPGJSSZA9627-35-46 07:47:00 Test Item Value Reference Range Interpretation Comments MCHC (test code = MCHC) 34.2 32.0-36.0 [facility]burgJfenbuiMBQIMGWIBE2154-13-99 07:47:00 Test Item Value Reference Range Interpretation Comments RDW (test code = RDW) 15.6 11.5-14.5 [facility]burgQytxceuOKSCPRRIQT8173-32-20 07:47:00 Test Item Value Reference Range Interpretation Comments Platelet (test code = Platelet) 240 133-450 [facility]burgIykxpmsPFLZZFPCLA7385-95-55 07:47:00 Test Item Value Reference Range Interpretation Comments MPV (test code = MPV) 9.2 7.4-10.4 [facility]2019-09-13 07:47:00 Test Item Value Reference Range Interpretation Comments Magnesium Lvl (test code = Magnesium 2.3 1.8-2.4 Lvl) [facility]2019-09-13 07:47:00 Test Item Value Reference Range Interpretation Comments Phosphorus (test code = Phosphorus) 3.1 2.5-4.5 [facility]2019-09-13 07:47:00 Test Item Value Reference Range Interpretation Comments Procalcitonin Lvl (test 0.93 See_Comment [Au tomated message] code = Procalcitonin Lvl) Th e system which generated this result transmitted ref erence range: <=0.10. The reference range was not used to interpr et this result as normal/abnormal . [facility]2019-09-13 07:47:00 Test Item Value Reference Range Interpretation Comments Glucose Lvl (test code = Glucose Lvl) 88 70-99 [facility]2019-09-13 07:47:00 Test Item Value Reference Range Interpretation Comments BUN (test code = BUN) 21 7-22 [facility]2019-09-13 07:47:00 Test Item Value Reference Range Interpretation Comments Creatinine Lvl (test code = Creatinine 0.64 0.50-1.40 Lvl) [facility]2019-09-13 07:47:00 Test Item Value Reference Range Interpretation Comments Sodium Lvl (test code = Sodium Lvl) 141 135-145 [facility]2019-09-13 07:47:00 Test Item Value Reference Range Interpretation Comments Potassium Lvl (test code = Potassium 4.6 3.5-5.1 Lvl) [facility]2019-09-13 07:47:00 Test Item Value Reference Range Interpretation Comments Chloride Lvl (test code = Chloride Lvl) 104 95-109 [facility]2019-09-13 07:47:00 Test Item Value Reference Range Interpretation Comments CO2 (test code = CO2) 27 24-32 [facility]2019-09-13 07:47:00 Test Item Value Reference Range Interpretation Comments Calcium Lvl (test code = Calcium Lvl) 8.7 8.5-10.5 [facility]2019-09-13 07:47:00 Test Item Value Reference Range Interpretation Comments eGFR (test code = eGFR) 87 [facility]2019-09-13 07:47:00 Test Item Value Reference Range Interpretation Comments AGAP (test code = AGAP) 14.6 10.0-20.0 [facility]burgKtsjtbaXAJGGWYDKE1885-36-28 07:47:00 Test Item Value Reference Range Interpretation Comments WBC (test code = WBC) 10.6 3.7-10.4 [facility]burgAhpyzsxYGFDEDYSNP7757-25-22 07:47:00 Test Item Value Reference Range Interpretation Comments RBC (test code = RBC) 3.73 4.20-5.40 [facility]burgMiakjndQIEWGIQOEB9671-38-64 07:47:00 Test Item Value Reference Range Interpretation Comments Hgb (test code = Hgb) 12.4 12.0-16.0 [facility]burgZkdomgiAFRUWTCXNC7887-45-69 07:47:00 Test Item Value Reference Range Interpretation Comments Hct (test code = Hct) 36.3 36.0-48.0 [facility]burgJentdguQTHDJWNLLF4261-63-65 07:47:00 Test Item Value Reference Range Interpretation Comments MCV (test code = MCV) 97.3 80.0-98.0 [facility]burgKsjglzaAXQIVQCQJK2626-80-77 07:47:00 Test Item Value Reference Range Interpretation Comments MCH (test code = MCH) 33.2 pg 27.0-31.0 [facility]burgJjmnccwLBGNPECIMJ1196-99-96 07:47:00 Test Item Value Reference Range Interpretation Comments MCHC (test code = MCHC) 34.2 32.0-36.0 [facility]burgKnvjcddAWPOFMGRNF6082-16-75 07:47:00 Test Item Value Reference Range Interpretation Comments RDW (test code = RDW) 15.6 11.5-14.5 [facility]burgMxakcgvDZUDIVPUGL4019-01-73 07:47:00 Test Item Value Reference Range Interpretation Comments Platelet (test code = Platelet) 240 133-450 [facility]burgAosqummYMHNHPZVOT7651-11-52 07:47:00 Test Item Value Reference Range Interpretation Comments MPV (test code = MPV) 9.2 7.4-10.4 [facility]2019-09-13 07:47:00 Test Item Value Reference Range Interpretation Comments Magnesium Lvl (test code = Magnesium 2.3 1.8-2.4 Lvl) [facility]2019-09-13 07:47:00 Test Item Value Reference Range Interpretation Comments Phosphorus (test code = Phosphorus) 3.1 2.5-4.5 [facility]2019-09-13 07:47:00 Test Item Value Reference Range Interpretation Comments Procalcitonin Lvl (test 0.93 See_Comment [Au tomated message] code = Procalcitonin Lvl) Th e system which generated this result transmitted ref erence range: <=0.10. The reference range was not used to interpr et this result as normal/abnormal . [facility]2019-09-13 07:47:00 Test Item Value Reference Range Interpretation Comments Glucose Lvl (test code = Glucose Lvl) 88 70-99 [place] 508859-09-13 07:47:00 Test Item Value Reference Range Interpretation Comments BUN (test code = BUN) 21 7-22 [facility]2019-09-13 07:47:00 Test Item Value Reference Range Interpretation Comments Creatinine Lvl (test code = Creatinine 0.64 0.50-1.40 Lvl) [facility]2019-09-13 07:47:00 Test Item Value Reference Range Interpretation Comments Sodium Lvl (test code = Sodium Lvl) 141 135-145 [facility]2019-09-13 07:47:00 Test Item Value Reference Range Interpretation Comments Potassium Lvl (test code = Potassium 4.6 3.5-5.1 Lvl) [facility]2019-09-13 07:47:00 Test Item Value Reference Range Interpretation Comments Chloride Lvl (test code = Chloride Lvl) 104 95-109 [facility]2019-09-13 07:47:00 Test Item Value Reference Range Interpretation Comments CO2 (test code = CO2) 27 24-32 [facility]2019-09-13 07:47:00 Test Item Value Reference Range Interpretation Comments Calcium Lvl (test code = Calcium Lvl) 8.7 8.5-10.5 [facility]2019-09-13 07:47:00 Test Item Value Reference Range Interpretation Comments eGFR (test code = eGFR) 87 [facility]2019-09-13 07:47:00 Test Item Value Reference Range Interpretation Comments AGAP (test code = AGAP) 14.6 10.0-20.0 [facility]burgYnrhcxhXGYUAUNVFB7325-60-45 07:47:00 Test Item Value Reference Range Interpretation Comments WBC (test code = WBC) 10.6 3.7-10.4 [facility]burgJovjkohQKOODYKBBI8090-44-63 07:47:00 Test Item Value Reference Range Interpretation Comments RBC (test code = RBC) 3.73 4.20-5.40 [place] 899879-09-13 07:47:00 Test Item Value Reference Range Interpretation Comments Hgb (test code = Hgb) 12.4 12.0-16.0 [facility]burgHlwsnekQSYYKGLBDO4265-97-64 07:47:00 Test Item Value Reference Range Interpretation Comments Hct (test code = Hct) 36.3 36.0-48.0 [facility]burgBsqpbbuQAKGYPTPFX8073-41-23 07:47:00 Test Item Value Reference Range Interpretation Comments MCV (test code = MCV) 97.3 80.0-98.0 [facility]burgEewkfvbLHNYQYLYTF3396-41-32 07:47:00 Test Item Value Reference Range Interpretation Comments MCH (test code = MCH) 33.2 pg 27.0-31.0 [facility]burgAwifkbdMIPKVSEHRA1390-04-62 07:47:00 Test Item Value Reference Range Interpretation Comments MCHC (test code = MCHC) 34.2 32.0-36.0 [facility]burgArebokzZZOMCHOARZ4946-22-92 07:47:00 Test Item Value Reference Range Interpretation Comments RDW (test code = RDW) 15.6 11.5-14.5 [facility]burgFsyrqasYYQDCXIEXC4930-75-13 07:47:00 Test Item Value Reference Range Interpretation Comments Platelet (test code = Platelet) 240 133-450 [facility]burgYsdbrxkGHPHGFDMQA8189-35-72 07:47:00 Test Item Value Reference Range Interpretation Comments MPV (test code = MPV) 9.2 7.4-10.4 [facility]2019-09-13 07:47:00 Test Item Value Reference Range Interpretation Comments Magnesium Lvl (test code = Magnesium 2.3 1.8-2.4 Lvl) [facility]2019-09-13 07:47:00 Test Item Value Reference Range Interpretation Comments Phosphorus (test code = Phosphorus) 3.1 2.5-4.5 [facility]2019-09-13 07:47:00 Test Item Value Reference Range Interpretation Comments Procalcitonin Lvl (test 0.93 See_Comment [Au tomated message] code = Procalcitonin Lvl) Th e system which generated this result transmitted ref erence range: <=0.10. The reference range was not used to interpr et this result as normal/abnormal . [facility]2019-09-13 07:47:00 Test Item Value Reference Range Interpretation Comments Glucose Lvl (test code = Glucose Lvl) 88 70-99 [facility]2019-09-13 07:47:00 Test Item Value Reference Range Interpretation Comments BUN (test code = BUN) 21 7-22 [place] 508859-09-13 07:47:00 Test Item Value Reference Range Interpretation Comments Creatinine Lvl (test code = Creatinine 0.64 0.50-1.40 Lvl) [facility]2019-09-13 07:47:00 Test Item Value Reference Range Interpretation Comments Sodium Lvl (test code = Sodium Lvl) 141 135-145 [place] 508859-09-13 07:47:00 Test Item Value Reference Range Interpretation Comments Potassium Lvl (test code = Potassium 4.6 3.5-5.1 Lvl) [facility]2019-09-13 07:47:00 Test Item Value Reference Range Interpretation Comments Chloride Lvl (test code = Chloride Lvl) 104 95-109 [facility]2019-09-13 07:47:00 Test Item Value Reference Range Interpretation Comments CO2 (test code = CO2) 27 24-32 [facility]2019-09-13 07:47:00 Test Item Value Reference Range Interpretation Comments Calcium Lvl (test code = Calcium Lvl) 8.7 8.5-10.5 [place] 508859-09-13 07:47:00 Test Item Value Reference Range Interpretation Comments eGFR (test code = eGFR) 87 [facility]2019-09-13 07:47:00 Test Item Value Reference Range Interpretation Comments AGAP (test code = AGAP) 14.6 10.0-20.0 [facility]burgQrjjubxKAWDHWOIPF7186-70-08 07:47:00 Test Item Value Reference Range Interpretation Comments WBC (test code = WBC) 10.6 3.7-10.4 [facility]burgLdmbhuyFLSUVTLPKO7513-10-84 07:47:00 Test Item Value Reference Range Interpretation Comments RBC (test code = RBC) 3.73 4.20-5.40 [place] 899879-09-13 07:47:00 Test Item Value Reference Range Interpretation Comments Hgb (test code = Hgb) 12.4 12.0-16.0 [place] 899879-09-13 07:47:00 Test Item Value Reference Range Interpretation Comments Hct (test code = Hct) 36.3 36.0-48.0 [facility]burgZstyesdGKAUKAUUPB4727-25-93 07:47:00 Test Item Value Reference Range Interpretation Comments MCV (test code = MCV) 97.3 80.0-98.0 [place] 899879-09-13 07:47:00 Test Item Value Reference Range Interpretation Comments MCH (test code = MCH) 33.2 pg 27.0-31.0 [place] 899879-09-13 07:47:00 Test Item Value Reference Range Interpretation Comments MCHC (test code = MCHC) 34.2 32.0-36.0 [facility]burgNsyslkeLCPCZUQMVE4159-47-02 07:47:00 Test Item Value Reference Range Interpretation Comments RDW (test code = RDW) 15.6 11.5-14.5 [facility]burgLhofclzXHULVAERTN9667-90-80 07:47:00 Test Item Value Reference Range Interpretation Comments Platelet (test code = Platelet) 240 133-450 [facility]inburgRlyvudrTIFABFBNEW2042-19-65 07:47:00 Test Item Value Reference Range Interpretation Comments MPV (test code = MPV) 9.2 7.4-10.4 [facility]2019-09-13 07:47:00 Test Item Value Reference Range Interpretation Comments Magnesium Lvl (test code = Magnesium 2.3 1.8-2.4 Lvl) [facility]2019-09-13 07:47:00 Test Item Value Reference Range Interpretation Comments Phosphorus (test code = Phosphorus) 3.1 2.5-4.5 [place] 508859-09-13 07:47:00 Test Item Value Reference Range Interpretation Comments Procalcitonin Lvl (test 0.93 See_Comment [Au tomated message] code = Procalcitonin Lvl) Th e system which generated this result transmitted ref erence range: <=0.10. The reference range was not used to interpr et this result as normal/abnormal . [facility]2019-09-13 07:47:00 Test Item Value Reference Range Interpretation Comments Glucose Lvl (test code = Glucose Lvl) 88 70-99 [facility]2019-09-13 07:47:00 Test Item Value Reference Range Interpretation Comments BUN (test code = BUN) 21 7-22 [place] 508859-09-13 07:47:00 Test Item Value Reference Range Interpretation Comments Creatinine Lvl (test code = Creatinine 0.64 0.50-1.40 Lvl) [facility]2019-09-13 07:47:00 Test Item Value Reference Range Interpretation Comments Sodium Lvl (test code = Sodium Lvl) 141 135-145 [facility]2019-09-13 07:47:00 Test Item Value Reference Range Interpretation Comments Potassium Lvl (test code = Potassium 4.6 3.5-5.1 Lvl) [facility]2019-09-13 07:47:00 Test Item Value Reference Range Interpretation Comments Chloride Lvl (test code = Chloride Lvl) 104 95-109 [facility]2019-09-13 07:47:00 Test Item Value Reference Range Interpretation Comments CO2 (test code = CO2) 27 24-32 [place] 508859-09-13 07:47:00 Test Item Value Reference Range Interpretation Comments Calcium Lvl (test code = Calcium Lvl) 8.7 8.5-10.5 [facility]2019-09-13 07:47:00 Test Item Value Reference Range Interpretation Comments eGFR (test code = eGFR) 87 [facility]2019-09-13 07:47:00 Test Item Value Reference Range Interpretation Comments AGAP (test code = AGAP) 14.6 10.0-20.0 [facility]burgEzfyjllCIKFZKCFBC7657-40-78 07:47:00 Test Item Value Reference Range Interpretation Comments WBC (test code = WBC) 10.6 3.7-10.4 [place] 899879-09-13 07:47:00 Test Item Value Reference Range Interpretation Comments RBC (test code = RBC) 3.73 4.20-5.40 [facility]burgZxxgqgwHSLWKERNGV0342-71-09 07:47:00 Test Item Value Reference Range Interpretation Comments Hgb (test code = Hgb) 12.4 12.0-16.0 [place] 899879-09-13 07:47:00 Test Item Value Reference Range Interpretation Comments Hct (test code = Hct) 36.3 36.0-48.0 [facility]burgGbxttnmPVYEDFVQRW4883-86-42 07:47:00 Test Item Value Reference Range Interpretation Comments MCV (test code = MCV) 97.3 80.0-98.0 [facility]burgEbpadtiXOXMHZIADZ3360-04-65 07:47:00 Test Item Value Reference Range Interpretation Comments MCH (test code = MCH) 33.2 pg 27.0-31.0 [facility]burgKssszdnRKVBBYHAMI4719-04-02 07:47:00 Test Item Value Reference Range Interpretation Comments MCHC (test code = MCHC) 34.2 32.0-36.0 [facility]burgPligyrcFYXOUYWESP8547-38-10 07:47:00 Test Item Value Reference Range Interpretation Comments RDW (test code = RDW) 15.6 11.5-14.5 [facility]burgKtzeihsRRBAUBJUDG0136-71-90 07:47:00 Test Item Value Reference Range Interpretation Comments Platelet (test code = Platelet) 240 133-450 [facility]burgGzfqhyoHOKFOAQSDJ4864-54-45 07:47:00 Test Item Value Reference Range Interpretation Comments MPV (test code = MPV) 9.2 7.4-10.4 [facility]2019-09-13 07:47:00 Test Item Value Reference Range Interpretation Comments Magnesium Lvl (test code = Magnesium 2.3 1.8-2.4 Lvl) [facility]2019-09-13 07:47:00 Test Item Value Reference Range Interpretation Comments Phosphorus (test code = Phosphorus) 3.1 2.5-4.5 [facility]2019-09-13 07:47:00 Test Item Value Reference Range Interpretation Comments Procalcitonin Lvl (test 0.93 See_Comment [Au tomated message] code = Procalcitonin Lvl) e system which generated this result transmitted ref erence range: <=0.10. The reference range was not used to interpr et this result as normal/abnormal . [facility]2019-09-13 07:47:00 Test Item Value Reference Range Interpretation Comments Glucose Lvl (test code = Glucose Lvl) 88 70-99 [facility]2019-09-13 07:47:00 Test Item Value Reference Range Interpretation Comments BUN (test code = BUN) 21 7-22 [facility]2019-09-13 07:47:00 Test Item Value Reference Range Interpretation Comments Creatinine Lvl (test code = Creatinine 0.64 0.50-1.40 Lvl) [facility]2019-09-13 07:47:00 Test Item Value Reference Range Interpretation Comments Sodium Lvl (test code = Sodium Lvl) 141 135-145 [place] 508859-09-13 07:47:00 Test Item Value Reference Range Interpretation Comments Potassium Lvl (test code = Potassium 4.6 3.5-5.1 Lvl) [place] 508859-09-13 07:47:00 Test Item Value Reference Range Interpretation Comments Chloride Lvl (test code = Chloride Lvl) 104 95-109 [place] 508859-09-13 07:47:00 Test Item Value Reference Range Interpretation Comments CO2 (test code = CO2) 27 24-32 [place] 508859-09-13 07:47:00 Test Item Value Reference Range Interpretation Comments Calcium Lvl (test code = Calcium Lvl) 8.7 8.5-10.5 [place] 508859-09-13 07:47:00 Test Item Value Reference Range Interpretation Comments eGFR (test code = eGFR) 87 [place] 508859-09-13 07:47:00 Test Item Value Reference Range Interpretation Comments AGAP (test code = AGAP) 14.6 10.0-20.0 [place] 899879-09-13 07:47:00 Test Item Value Reference Range Interpretation Comments WBC (test code = WBC) 10.6 3.7-10.4 [place] 899879-09-13 07:47:00 Test Item Value Reference Range Interpretation Comments RBC (test code = RBC) 3.73 4.20-5.40 [place] 899879-09-13 07:47:00 Test Item Value Reference Range Interpretation Comments Hgb (test code = Hgb) 12.4 12.0-16.0 [place] 899879-09-13 07:47:00 Test Item Value Reference Range Interpretation Comments Hct (test code = Hct) 36.3 36.0-48.0 [place] 899879-09-13 07:47:00 Test Item Value Reference Range Interpretation Comments MCV (test code = MCV) 97.3 80.0-98.0 [facility]burgUuavlvmGBDQZNVONS0138-67-03 07:47:00 Test Item Value Reference Range Interpretation Comments MCH (test code = MCH) 33.2 pg 27.0-31.0 [facility]burgXxrbvqrIMYVWMRSTH6544-38-80 07:47:00 Test Item Value Reference Range Interpretation Comments MCHC (test code = MCHC) 34.2 32.0-36.0 [facility]burgEiqgunoPIASHXQKZN1890-88-56 07:47:00 Test Item Value Reference Range Interpretation Comments RDW (test code = RDW) 15.6 11.5-14.5 [facility]burgXjplddmPAWEUBMRTN0534-89-96 07:47:00 Test Item Value Reference Range Interpretation Comments Platelet (test code = Platelet) 240 133-450 [facility]burgJcjbcseZHORFRPFGN6548-19-65 07:47:00 Test Item Value Reference Range Interpretation Comments MPV (test code = MPV) 9.2 7.4-10.4 [facility] KIVLN0686-62-18 07:17:00 Test Item Value Reference Range Interpretation Comments Phosphorus (test code = Phosphorus) 2.9 2.5-4.5 [facility]CHE[facility] [id number] 07:17:00 Test Item Value Reference Range Interpretation Comments Magnesium Lvl (test code = Magnesium 2.3 1.8-2.4 Lvl) [facility]burgGalnkqiFUOWDBIHHZ7098-40-18 07:17:00 Test Item Value Reference Range Interpretation Comments Segs (test code = Segs) 68.6 45.0-75.0 [facility]inburgWaaoenlCFKGCXYLLA1505-23-07 07:17:00 Test Item Value Reference Range Interpretation Comments Lymphocytes (test code = Lymphocytes) 17.0 20.0-40.0 [facility]inburgNzjtnmuQIHWWCIBRQ8338-27-96 07:17:00 Test Item Value Reference Range Interpretation Comments Monocytes (test code = Monocytes) 12.1 2.0-12.0 [facility]inburgYuzvnykSEFBJNPTQE2092-61-49 07:17:00 Test Item Value Reference Range Interpretation Comments Eosinophils (test code = 1.5 See_Comment [A utomated message] The Eosinophils) system which ge nerated this result tra nsmitted reference range : <=4.0. The reference r maría was not used to int erpret this result as normal/abnormal . [place] 899879-09-12 07:17:00 Test Item Value Reference Range Interpretation Comments Basophils (test code = 0.8 See_Comment [Aut omated message] The Basophils) system which ge nerated this result tra nsmitted reference range : <=1.0. The reference r maría was not used to int erpret this result as normal/abnormal . [facility]burgEythidiICRJPIRXQN7372-52-04 07:17:00 Test Item Value Reference Range Interpretation Comments Neutrophils # (test code = Neutrophils 7.8 1.5-8.1 #) [facility]burgXowplzvWOJMZBKPSA6186-98-67 07:17:00 Test Item Value Reference Range Interpretation Comments Lymphocytes # (test code = Lymphocytes 1.9 1.0-5.5 #) [facility]burgFehnncnFRDXEAENFC9074-51-29 07:17:00 Test Item Value Reference Range Interpretation Comments Monocytes # (test code 1.4 See_Comment [Aut omated message] The = Monocytes #) system which generated this result tra nsmitted reference range : <=0.8. The reference r maría was not used to int erpret this result as normal/abnormal . [facility]burgHydhkfnTUQHKAXUFS0400-16-09 07:17:00 Test Item Value Reference Range Interpretation Comments Eosinophils # (test code 0.2 See_Comment [A utomated message] The = Eosinophils #) system whic h generated this result tra nsmitted reference range : <=0.5. The reference r maría was not used to int erpret this result as normal/abnormal . [facility]burgDytxctxOHXAJSCJYG5928-85-37 07:17:00 Test Item Value Reference Range Interpretation Comments Basophils # (test code 0.1 See_Comment [Aut omated message] The = Basophils #) system which generated this result tra nsmitted reference range : <=0.2. The reference r maría was not used to int erpret this result as normal/abnormal . [facility]2019-09-12 07:17:00 Test Item Value Reference Range Interpretation Comments Ca Ion WB (test code = Ca Ion WB) 1.20 1.05-1.25 [facility]2019-09-12 07:17:00 Test Item Value Reference Range Interpretation Comments Ca Norm WB (test code = Ca Norm WB) 1.11 1.05-1.25 [facility]2019-09-12 07:17:00 Test Item Value Reference Range Interpretation Comments Phosphorus (test code = Phosphorus) 2.9 2.5-4.5 [facility]2019-09-12 07:17:00 Test Item Value Reference Range Interpretation Comments Magnesium Lvl (test code = Magnesium 2.3 1.8-2.4 Lvl) [facility]burgQbhgjkvUKOHRYMKFY8923-02-76 07:17:00 Test Item Value Reference Range Interpretation Comments Segs (test code = Segs) 68.6 45.0-75.0 [facility]burgHtjqqfnVDRWPKTBMU5276-67-64 07:17:00 Test Item Value Reference Range Interpretation Comments Lymphocytes (test code = Lymphocytes) 17.0 20.0-40.0 [facility]burgFefoxhzBVQWQGCHJQ8565-11-95 07:17:00 Test Item Value Reference Range Interpretation Comments Monocytes (test code = Monocytes) 12.1 2.0-12.0 [facility]burgFcaipfrTBVZPBCDEW2535-28-44 07:17:00 Test Item Value Reference Range Interpretation Comments Eosinophils (test code = 1.5 See_Comment [A utomated message] The Eosinophils) system which ge nerated this result tra nsmitted reference range : <=4.0. The reference r maría was not used to int erpret this result as normal/abnormal . [facility]burgZzlzcaaACZFDVXKPF9845-43-30 07:17:00 Test Item Value Reference Range Interpretation Comments Basophils (test code = 0.8 See_Comment [Aut omated message] The Basophils) system which ge nerated this result tra nsmitted reference range : <=1.0. The reference r maría was not used to int erpret this result as normal/abnormal . [facility]burgJfadrvsVROKDFVDGH0458-70-77 07:17:00 Test Item Value Reference Range Interpretation Comments Neutrophils # (test code = Neutrophils 7.8 1.5-8.1 #) [facility]burgYxodmaiUCDJYDDVST0945-02-88 07:17:00 Test Item Value Reference Range Interpretation Comments Lymphocytes # (test code = Lymphocytes 1.9 1.0-5.5 #) [facility]burgSjukwzsCWHNUJYCOB9545-04-94 07:17:00 Test Item Value Reference Range Interpretation Comments Monocytes # (test code 1.4 See_Comment [Aut omated message] The = Monocytes #) system which generated this result tra nsmitted reference range : <=0.8. The reference r maría was not used to int erpret this result as normal/abnormal . [facility]burgCisprkzNSCFCGKGHH2762-98-59 07:17:00 Test Item Value Reference Range Interpretation Comments Eosinophils # (test code 0.2 See_Comment [A utomated message] The = Eosinophils #) system whic h generated this result tra nsmitted reference range : <=0.5. The reference r maría was not used to int erpret this result as normal/abnormal . [facility]burgXfhvphyQIRLANHBTZ7932-61-24 07:17:00 Test Item Value Reference Range Interpretation Comments Basophils # (test code 0.1 See_Comment [Aut omated message] The = Basophils #) system which generated this result tra nsmitted reference range : <=0.2. The reference r maría was not used to int erpret this result as normal/abnormal . [facility]2019-09-12 07:17:00 Test Item Value Reference Range Interpretation Comments Ca Ion WB (test code = Ca Ion WB) 1.20 1.05-1.25 [facility]2019-09-12 07:17:00 Test Item Value Reference Range Interpretation Comments Ca Norm WB (test code = Ca Norm WB) 1.11 1.05-1.25 [facility]2019-09-12 07:17:00 Test Item Value Reference Range Interpretation Comments Phosphorus (test code = Phosphorus) 2.9 2.5-4.5 [facility] [id number] 07:17:00 Test Item Value Reference Range Interpretation Comments Magnesium Lvl (test code = Magnesium 2.3 1.8-2.4 Lvl) [facility]burgPzduqhsWJATVYHBZZ1424-49-93 07:17:00 Test Item Value Reference Range Interpretation Comments Segs (test code = Segs) 68.6 45.0-75.0 [facility]burgSynwdogWNGLRPCYZX2805-84-60 07:17:00 Test Item Value Reference Range Interpretation Comments Lymphocytes (test code = Lymphocytes) 17.0 20.0-40.0 [facility]burgFvfxpaxQEHPJTQYUK7310-08-45 07:17:00 Test Item Value Reference Range Interpretation Comments Monocytes (test code = Monocytes) 12.1 2.0-12.0 [place] [id number] 07:17:00 Test Item Value Reference Range Interpretation Comments Eosinophils (test code = 1.5 See_Comment [A utomated message] The Eosinophils) system which ge nerated this result tra nsmitted reference range : <=4.0. The reference r maría was not used to int erpret this result as normal/abnormal . [facility]burgAlihoclYYMLRQNNJA3735-25-46 07:17:00 Test Item Value Reference Range Interpretation Comments Basophils (test code = 0.8 See_Comment [Aut omated message] The Basophils) system which ge nerated this result tra nsmitted reference range : <=1.0. The reference r maría was not used to int erpret this result as normal/abnormal . [facility]burgTdfxyhcPYJANBZBEN6681-63-05 07:17:00 Test Item Value Reference Range Interpretation Comments Neutrophils # (test code = Neutrophils 7.8 1.5-8.1 #) [facility]burgQwxsdupVNKFTFHUGE9848-77-09 07:17:00 Test Item Value Reference Range Interpretation Comments Lymphocytes # (test code = Lymphocytes 1.9 1.0-5.5 #) [facility]burgYhucurrTCLWVWEDIZ4841-33-18 07:17:00 Test Item Value Reference Range Interpretation Comments Monocytes # (test code 1.4 See_Comment [Aut omated message] The = Monocytes #) system which generated this result tra nsmitted reference range : <=0.8. The reference r maría was not used to int erpret this result as normal/abnormal . [facility]burgOnsmbgqBNESNDMZUA9345-43-74 07:17:00 Test Item Value Reference Range Interpretation Comments Eosinophils # (test code 0.2 See_Comment [A utomated message] The = Eosinophils #) system whic h generated this result tra nsmitted reference range : <=0.5. The reference r maría was not used to int erpret this result as normal/abnormal . [facility]burgCxhpmuxNLIRXYPCRI8953-68-97 07:17:00 Test Item Value Reference Range Interpretation Comments Basophils # (test code 0.1 See_Comment [Aut omated message] The = Basophils #) system which generated this result tra nsmitted reference range : <=0.2. The reference r maría was not used to int erpret this result as normal/abnormal . [facility]ATH[facility] [id number] 07:17:00 Test Item Value Reference Range Interpretation Comments Ca Ion WB (test code = Ca Ion WB) 1.20 1.05-1.25 [facility] [id number] 07:17:00 Test Item Value Reference Range Interpretation Comments Ca Norm WB (test code = Ca Norm WB) 1.11 1.05-1.25 [facility] [id number] 07:17:00 Test Item Value Reference Range Interpretation Comments Phosphorus (test code = Phosphorus) 2.9 2.5-4.5 [facility] [id number] 07:17:00 Test Item Value Reference Range Interpretation Comments Magnesium Lvl (test code = Magnesium 2.3 1.8-2.4 Lvl) [facility]burgToiazlxYTCABDATHZ4780-28-59 07:17:00 Test Item Value Reference Range Interpretation Comments Segs (test code = Segs) 68.6 45.0-75.0 [facility]burgYjifgbaVMSXXBGKNI0646-35-84 07:17:00 Test Item Value Reference Range Interpretation Comments Lymphocytes (test code = Lymphocytes) 17.0 20.0-40.0 [facility]burgPkazxhvTEUHKZDQLM5346-76-34 07:17:00 Test Item Value Reference Range Interpretation Comments Monocytes (test code = Monocytes) 12.1 2.0-12.0 [facility]burgZghplnuQIXXZUIKOW2964-02-40 07:17:00 Test Item Value Reference Range Interpretation Comments Eosinophils (test code = 1.5 See_Comment [A utomated message] The Eosinophils) system which ge nerated this result tra nsmitted reference range : <=4.0. The reference r maría was not used to int erpret this result as normal/abnormal . [facility]burgVabiwehINEUKDYOLL5825-50-69 07:17:00 Test Item Value Reference Range Interpretation Comments Basophils (test code = 0.8 See_Comment [Aut omated message] The Basophils) system which ge nerated this result tra nsmitted reference range : <=1.0. The reference r maría was not used to int erpret this result as normal/abnormal . [facility]burgOoxshqrTTUEFXGPVG9753-99-73 07:17:00 Test Item Value Reference Range Interpretation Comments Neutrophils # (test code = Neutrophils 7.8 1.5-8.1 #) [facility]bu[id number] 07:17:00 Test Item Value Reference Range Interpretation Comments Lymphocytes # (test code = Lymphocytes 1.9 1.0-5.5 #) [facility]burgAndrnidJUSNMLPFSJ7040-37-94 07:17:00 Test Item Value Reference Range Interpretation Comments Monocytes # (test code 1.4 See_Comment [Aut omated message] The = Monocytes #) system which generated this result tra nsmitted reference range : <=0.8. The reference r maría was not used to int erpret this result as normal/abnormal . [facility]burgOktcxicWUVGMHMVUA0630-36-32 07:17:00 Test Item Value Reference Range Interpretation Comments Eosinophils # (test code 0.2 See_Comment [A utomated message] The = Eosinophils #) system whic h generated this result tra nsmitted reference range : <=0.5. The reference r maría was not used to int erpret this result as normal/abnormal . [facility]burgLnskektPGSESSNUOK8617-46-94 07:17:00 Test Item Value Reference Range Interpretation Comments Basophils # (test code 0.1 See_Comment [Aut omated message] The = Basophils #) system which generated this result tra nsmitted reference range : <=0.2. The reference r maría was not used to int erpret this result as normal/abnormal . [facility]2019-09-12 07:17:00 Test Item Value Reference Range Interpretation Comments Ca Ion WB (test code = Ca Ion WB) 1.20 1.05-1.25 [facility]2019-09-12 07:17:00 Test Item Value Reference Range Interpretation Comments Ca Norm WB (test code = Ca Norm WB) 1.11 1.05-1.25 [facility]2019-09-12 07:17:00 Test Item Value Reference Range Interpretation Comments Phosphorus (test code = Phosphorus) 2.9 2.5-4.5 [facility]2019-09-12 07:17:00 Test Item Value Reference Range Interpretation Comments Magnesium Lvl (test code = Magnesium 2.3 1.8-2.4 Lvl) [id number] 07:17:00 Test Item Value Reference Range Interpretation Comments Segs (test code = Segs) 68.6 45.0-75.0 [facility]burgYqjkkkaJEFYKHGAWK4659-22-07 07:17:00 Test Item Value Reference Range Interpretation Comments Lymphocytes (test code = Lymphocytes) 17.0 20.0-40.0 [facility]burgHcmppcgEAZUELQBER1754-30-56 07:17:00 Test Item Value Reference Range Interpretation Comments Monocytes (test code = Monocytes) 12.1 2.0-12.0 [facility]burgCcivzfrEUJDHPBSSY2327-59-81 07:17:00 Test Item Value Reference Range Interpretation Comments Eosinophils (test code = 1.5 See_Comment [A utomated message] The Eosinophils) system which ge nerated this result tra nsmitted reference range : <=4.0. The reference r maría was not used to int erpret this result as normal/abnormal . [facility]burgKfapsquTNXMJWOSLY5010-76-90 07:17:00 Test Item Value Reference Range Interpretation Comments Basophils (test code = 0.8 See_Comment [Aut omated message] The Basophils) system which ge nerated this result tra nsmitted reference range : <=1.0. The reference r maría was not used to int erpret this result as normal/abnormal . [facility]burgYgqwdpxBMCLSIOTTM1027-04-60 07:17:00 Test Item Value Reference Range Interpretation Comments Neutrophils # (test code = Neutrophils 7.8 1.5-8.1 #) [facility]burgNopzhcmWFDIBILEYO4123-42-35 07:17:00 Test Item Value Reference Range Interpretation Comments Lymphocytes # (test code = Lymphocytes 1.9 1.0-5.5 #) [facility]bu[id number] 07:17:00 Test Item Value Reference Range Interpretation Comments Monocytes # (test code 1.4 See_Comment [Aut omated message] The = Monocytes #) system which generated this result tra nsmitted reference range : <=0.8. The reference r maría was not used to int erpret this result as normal/abnormal . [facility]burgGaqfboaGVPCTKCVEY0314-90-11 07:17:00 Test Item Value Reference Range Interpretation Comments Eosinophils # (test code 0.2 See_Comment [A utomated message] The = Eosinophils #) system whic h generated this result tra nsmitted reference range : <=0.5. The reference r maría was not used to int erpret this result as normal/abnormal . [facility]burgKynogmvSDBWSVTUWF7276-84-72 07:17:00 Test Item Value Reference Range Interpretation Comments Basophils # (test code 0.1 See_Comment [Aut omated message] The = Basophils #) system which generated this result tra nsmitted reference range : <=0.2. The reference r maría was not used to int erpret this result as normal/abnormal . [facility]2019-09-12 07:17:00 Test Item Value Reference Range Interpretation Comments Ca Ion WB (test code = Ca Ion WB) 1.20 1.05-1.25 [facility]2019-09-12 07:17:00 Test Item Value Reference Range Interpretation Comments Ca Norm WB (test code = Ca Norm WB) 1.11 1.05-1.25 [facility]2019-09-12 07:17:00 Test Item Value Reference Range Interpretation Comments Phosphorus (test code = Phosphorus) 2.9 2.5-4.5 [facility]2019-09-12 07:17:00 Test Item Value Reference Range Interpretation Comments Magnesium Lvl (test code = Magnesium 2.3 1.8-2.4 Lvl) [id number] 07:17:00 Test Item Value Reference Range Interpretation Comments Segs (test code = Segs) 68.6 45.0-75.0 [facility]burgPvzozrhDARKIJLVSI9923-33-61 07:17:00 Test Item Value Reference Range Interpretation Comments Lymphocytes (test code = Lymphocytes) 17.0 20.0-40.0 [facility]burgFypcesgDXHXSYZUTM4219-87-05 07:17:00 Test Item Value Reference Range Interpretation Comments Monocytes (test code = Monocytes) 12.1 2.0-12.0 [facility]burgKwlfueqEHSGQGPXYX8751-84-69 07:17:00 Test Item Value Reference Range Interpretation Comments Eosinophils (test code = 1.5 See_Comment [A utomated message] The Eosinophils) system which ge nerated this result tra nsmitted reference range : <=4.0. The reference r maría was not used to int erpret this result as normal/abnormal . [facility]burgDyozdxaQBODAUNOUZ0344-41-43 07:17:00 Test Item Value Reference Range Interpretation Comments Basophils (test code = 0.8 See_Comment [Aut omated message] The Basophils) system which ge nerated this result tra nsmitted reference range : <=1.0. The reference r maría was not used to int erpret this result as normal/abnormal . [facility]burgTqthwsfSAMKSXFYHW2140-67-88 07:17:00 Test Item Value Reference Range Interpretation Comments Neutrophils # (test code = Neutrophils 7.8 1.5-8.1 #) [facility]burgHnyxdfoYVEFYTZVJE5079-62-15 07:17:00 Test Item Value Reference Range Interpretation Comments Lymphocytes # (test code = Lymphocytes 1.9 1.0-5.5 #) [facility]burgPvzqtibFDRPEWLKJP8984-36-28 07:17:00 Test Item Value Reference Range Interpretation Comments Monocytes # (test code 1.4 See_Comment [Aut omated message] The = Monocytes #) system which generated this result tra nsmitted reference range : <=0.8. The reference r maría was not used to int erpret this result as normal/abnormal . [facility]burgVxybffqBAPWGKLEVI4343-04-71 07:17:00 Test Item Value Reference Range Interpretation Comments Eosinophils # (test code 0.2 See_Comment [A utomated message] The = Eosinophils #) system whic h generated this result tra nsmitted reference range : <=0.5. The reference r maría was not used to int erpret this result as normal/abnormal . [facility]burgJatyhluKZWBPKPWKL6253-23-32 07:17:00 Test Item Value Reference Range Interpretation Comments Basophils # (test code 0.1 See_Comment [Aut omated message] The = Basophils #) system which generated this result tra nsmitted reference range : <=0.2. The reference r maría was not used to int erpret this result as normal/abnormal . [facility]ATHY[facility] [id number] 07:17:00 Test Item Value Reference Range Interpretation Comments Ca Ion WB (test code = Ca Ion WB) 1.20 1.05-1.25 [facility] [id number] 07:17:00 Test Item Value Reference Range Interpretation Comments Ca Norm WB (test code = Ca Norm WB) 1.11 1.05-1.25 [facility] [id number] 09:43:00 Test Item Value Reference Range Interpretation Comments MRSA by PCR (test Negative (05/28/19 4:43 code = MRSA by PCR) AM) [facility] [id number] 09:43:00 Test Item Value Reference Range Interpretation Comments MRSA by PCR (test Negative (05/28/19 4:43 code = MRSA by PCR) AM) [facility] [id number] 09:43:00 Test Item Value Reference Range Interpretation Comments MRSA by PCR (test Negative (05/28/19 4:43 code = MRSA by PCR) AM) [facility] - [id number] 09:43:00 Test Item Value Reference Range Interpretation Comments MRSA by PCR (test Negative (05/28/19 4:43 code = MRSA by PCR) AM) [facility] [id number] 09:43:00 Test Item Value Reference Range Interpretation Comments MRSA by PCR (test Negative (05/28/19 4:43 code = MRSA by PCR) AM) [facility] - [id number] 09:43:00 Test Item Value Reference Range Interpretation Comments MRSA by PCR (test Negative (05/28/19 4:43 code = MRSA by PCR) AM) [facility]burgRusarhhJOOHKUWTUI3570-05-63 05:09:00 Test Item Value Reference Range Interpretation Comments Basophils (test code = 0.3 See_Comment [Aut omated message] The Basophils) system which ge nerated this result tra nsmitted reference range : <=1.0. The reference r maría was not used to int erpret this result as normal/abnormal . [facility]burgLckeiyrGEWCEUJVFS3935-22-76 05:09:00 Test Item Value Reference Range Interpretation Comments Neutrophils # (test code = Neutrophils 8.6 1.5-8.1 #) [facility]burgJtxwjkxXFYVDSJFRE7324-45-01 05:09:00 Test Item Value Reference Range Interpretation Comments Lymphocytes # (test code = Lymphocytes 1.5 1.0-5.5 #) [facility]burgYleuzolBEIPVZBXVK2591-88-45 05:09:00 Test Item Value Reference Range Interpretation Comments Monocytes # (test code 1.3 See_Comment [Aut omated message] The = Monocytes #) system which generated this result tra nsmitted reference range : <=0.8. The reference r maría was not used to int erpret this result as normal/abnormal . [facility] HospitalPARATHYROID [id number] 05:09:00 Test Item Value Reference Range Interpretation Comments Ca Ion WB (test code = Ca Ion WB) 1.19 1.05-1.25 [facility] HospitalPARATHYROID [id number] 05:09:00 Test Item Value Reference Range Interpretation Comments Ca Norm WB (test code = Ca Norm WB) 1.12 1.05-1.25 [facility] HospitalCARDIAC [id number] 05:09:00 Test Item Value Reference Range Interpretation Comments Troponin-I (test code 0.62 See_Comment [Auto mated message] The = Troponin-I) system which g enerated this result transmit maria c reference range : <=0.40. The reference r maría was not used to interpr et this result as karthikeyan l/abnormal. [facility]burgQzfsgueFHRDOUDHAV3888-06-29 05:09:00 Test Item Value Reference Range Interpretation Comments Segs (test code = Segs) 75.1 45.0-75.0 [id number] 05:09:00 Test Item Value Reference Range Interpretation Comments Lymphocytes (test code = Lymphocytes) 13.1 20.0-40.0 [facility] HospitalBfqzrtmOHSILFVHDC0386-11-17 05:09:00 Test Item Value Reference Range Interpretation Comments Monocytes (test code = Monocytes) 11.3 2.0-12.0 [id number] 05:09:00 Test Item Value Reference Range Interpretation Comments Eosinophils (test code = 0.2 See_Comment [A utomated message] The Eosinophils) system which ge nerated this result tra nsmitted reference range : <=4.0. The reference r maría was not used to int erpret this result as normal/abnormal . [facility]burgGnhdzfrMODLTFHUHJ9061-42-10 05:09:00 Test Item Value Reference Range Interpretation Comments Basophils (test code = 0.3 See_Comment [Aut omated message] The Basophils) system which ge nerated this result tra nsmitted reference range : <=1.0. The reference r maría was not used to int erpret this result as normal/abnormal . [facility]burgFmfudczUIRLULEDOE3272-89-12 05:09:00 Test Item Value Reference Range Interpretation Comments Neutrophils # (test code = Neutrophils 8.6 1.5-8.1 #) [facility] HospitalKojmwzqGIAENCYKXE8012-20-10 05:09:00 Test Item Value Reference Range Interpretation Comments Lymphocytes # (test code = Lymphocytes 1.5 1.0-5.5 #) [facility] HospitalGcnryunVSRPOCZQIQ5381-49-06 05:09:00 Test Item Value Reference Range Interpretation Comments Monocytes # (test code 1.3 See_Comment [Aut omated message] The = Monocytes #) system which generated this result tra nsmitted reference range : <=0.8. The reference r maría was not used to int erpret this result as normal/abnormal . [facility] HospitalATHYROID [id number] 05:09:00 Test Item Value Reference Range Interpretation Comments Ca Ion WB (test code = Ca Ion WB) 1.19 1.05-1.25 [facility] HospitalATHYROID [id number] 05:09:00 Test Item Value Reference Range Interpretation Comments Ca Norm WB (test code = Ca Norm WB) 1.12 1.05-1.25 [facility] HospitalCARD[facility]AC [id number] 05:09:00 Test Item Value Reference Range Interpretation Comments Troponin-I (test code 0.62 See_Comment [Auto mated message] The = Troponin-I) system which g enerated this result transmit maria c reference range : <=0.40. The reference r maría was not used to interpr et this result as karthikeyan l/abnormal. [facility]burgJddgxbsRGVHGXEFSZ3450-61-98 05:09:00 Test Item Value Reference Range Interpretation Comments Segs (test code = Segs) 75.1 45.0-75.0 [facility] HospitalIlhjbuuOGEJNRHTKE4193-44-83 05:09:00 Test Item Value Reference Range Interpretation Comments Lymphocytes (test code = Lymphocytes) 13.1 20.0-40.0 [facility] HospitalPgalhvdYKFBLAZITZ1033-02-21 05:09:00 Test Item Value Reference Range Interpretation Comments Monocytes (test code = Monocytes) 11.3 2.0-12.0 [facility] HospitalRhecyanOECMWUPUUU4336-72-05 05:09:00 Test Item Value Reference Range Interpretation Comments Eosinophils (test code = 0.2 See_Comment [A utomated message] The Eosinophils) system which ge nerated this result tra nsmitted reference range : <=4.0. The reference r maría was not used to int erpret this result as normal/abnormal . [facility] HospitalEzsifhjZKJOJVOXDZ3539-54-49 05:09:00 Test Item Value Reference Range Interpretation Comments Basophils (test code = 0.3 See_Comment [Aut omated message] The Basophils) system which ge nerated this result tra nsmitted reference range : <=1.0. The reference r maría was not used to int erpret this result as normal/abnormal . [facility] HospitalHxzqqbqVIHQLLHMPK6820-06-09 05:09:00 Test Item Value Reference Range Interpretation Comments Neutrophils # (test code = Neutrophils 8.6 1.5-8.1 #) [facility] HospitalRrqtldoRUEHGDSWAC6309-90-76 05:09:00 Test Item Value Reference Range Interpretation Comments Lymphocytes # (test code = Lymphocytes 1.5 1.0-5.5 #) [facility]burgSfamqahZIPONJYKET1266-06-49 05:09:00 Test Item Value Reference Range Interpretation Comments Monocytes # (test code 1.3 See_Comment [Aut omated message] The = Monocytes #) system which generated this result tra nsmitted reference range : <=0.8. The reference r maría was not used to int erpret this result as normal/abnormal . [facility]PAR[facility] [id number] 05:09:00 Test Item Value Reference Range Interpretation Comments Ca Ion WB (test code = Ca Ion WB) 1.19 1.05-1.25 [facility]PARATHYROID KFQJRFC9150-06-21 05:09:00 Test Item Value Reference Range Interpretation Comments Ca Norm WB (test code = Ca Norm WB) 1.12 1.05-1.25 [facility] HospitalCARDIAC [id number] 05:09:00 Test Item Value Reference Range Interpretation Comments Troponin-I (test code 0.62 See_Comment [Auto mated message] The = Troponin-I) system which g enerated this result transmit maria c reference range : <=0.40. The reference r maría was not used to interpr et this result as karthikeyan l/abnormal. [facility]burgCnpoiifWRDPFZSKMP2939-04-92 05:09:00 Test Item Value Reference Range Interpretation Comments Segs (test code = Segs) 75.1 45.0-75.0 [facility]burgIdccsvfEBSPLVHIFU3486-90-97 05:09:00 Test Item Value Reference Range Interpretation Comments Lymphocytes (test code = Lymphocytes) 13.1 20.0-40.0 [facility]burgBzzsgmfXBXOGYKRYH2795-18-34 05:09:00 Test Item Value Reference Range Interpretation Comments Monocytes (test code = Monocytes) 11.3 2.0-12.0 [facility]burgIorbukaRWIJEOTEXG7613-67-65 05:09:00 Test Item Value Reference Range Interpretation Comments Eosinophils (test code = 0.2 See_Comment [A utomated message] The Eosinophils) system which ge nerated this result tra nsmitted reference range : <=4.0. The reference r maría was not used to int erpret this result as normal/abnormal . [facility]burgCrojwywEUXLFINYVL6819-48-39 05:09:00 Test Item Value Reference Range Interpretation Comments Basophils (test code = 0.3 See_Comment [Aut omated message] The Basophils) system which ge nerated this result tra nsmitted reference range : <=1.0. The reference r maría was not used to int erpret this result as normal/abnormal . [facility]burgWblyfvsFLBOIUCRJP3577-20-99 05:09:00 Test Item Value Reference Range Interpretation Comments Neutrophils # (test code = Neutrophils 8.6 1.5-8.1 #) [facility]burgVpjecpsYQPCZJHSFI6133-13-67 05:09:00 Test Item Value Reference Range Interpretation Comments Lymphocytes # (test code = Lymphocytes 1.5 1.0-5.5 #) [facility]burgLvlvigqXCSQAWCOOJ6875-24-46 05:09:00 Test Item Value Reference Range Interpretation Comments Monocytes # (test code 1.3 See_Comment [Aut omated message] The = Monocytes #) system which generated this result tra nsmitted reference range : <=0.8. The reference r maría was not used to int erpret this result as normal/abnormal . [facility]ATHY[facility] NIYFBOV0566-14-59 05:09:00 Test Item Value Reference Range Interpretation Comments Ca Ion WB (test code = Ca Ion WB) 1.19 1.05-1.25 [facility] HospitalATHYROID [id number] 05:09:00 Test Item Value Reference Range Interpretation Comments Ca Norm WB (test code = Ca Norm WB) 1.12 1.05-1.25 [facility] HospitalCARDIAC [id number] 05:09:00 Test Item Value Reference Range Interpretation Comments Troponin-I (test code 0.62 See_Comment [Auto mated message] The = Troponin-I) system which g enerated this result transmit maria c reference range : <=0.40. The reference r maría was not used to interpr et this result as karthikeyan l/abnormal. [facility]burgWhpgtlzQOLZJBFYHJ9553-49-32 05:09:00 Test Item Value Reference Range Interpretation Comments Segs (test code = Segs) 75.1 45.0-75.0 [facility]burgNjefkafCJKVEPOXVG7840-88-65 05:09:00 Test Item Value Reference Range Interpretation Comments Lymphocytes (test code = Lymphocytes) 13.1 20.0-40.0 [facility]burgZgsrdrfEYFHMQKYBT2525-95-94 05:09:00 Test Item Value Reference Range Interpretation Comments Monocytes (test code = Monocytes) 11.3 2.0-12.0 [facility]burgQhnazcbJTXCOQTVMC3511-44-16 05:09:00 Test Item Value Reference Range Interpretation Comments Eosinophils (test code = 0.2 See_Comment [A utomated message] The Eosinophils) system which ge nerated this result tra nsmitted reference range : <=4.0. The reference r maría was not used to int erpret this result as normal/abnormal . [facility]burgGrlfzcdVCPSKKPUTB6879-73-11 05:09:00 Test Item Value Reference Range Interpretation Comments Basophils (test code = 0.3 See_Comment [Aut omated message] The Basophils) system which ge nerated this result tra nsmitted reference range : <=1.0. The reference r maría was not used to int erpret this result as normal/abnormal . [facility]burgDordshxMZCQAODQZF8770-45-99 05:09:00 Test Item Value Reference Range Interpretation Comments Neutrophils # (test code = Neutrophils 8.6 1.5-8.1 #) [facility]burgKbgmhzjZWGPLFGSAE0400-99-50 05:09:00 Test Item Value Reference Range Interpretation Comments Lymphocytes # (test code = Lymphocytes 1.5 1.0-5.5 #) [facility]inburgYuyivseHPYOFTHBWH0687-83-00 05:09:00 Test Item Value Reference Range Interpretation Comments Monocytes # (test code 1.3 See_Comment [Aut omated message] The = Monocytes #) system which generated this result tra nsmitted reference range : <=0.8. The reference r maría was not used to int erpret this result as normal/abnormal . [facility] CampusannPARATHYROID SDKWRIS5134-04-58 05:09:00 Test Item Value Reference Range Interpretation Comments Ca Ion WB (test code = Ca Ion WB) 1.19 1.05-1.25 [facility] CampusannPARATHYROID EPUJVKG8952-01-09 05:09:00 Test Item Value Reference Range Interpretation Comments Ca Norm WB (test code = Ca Norm WB) 1.12 1.05-1.25 [facility] CampusannCARDIAC [id number] 05:09:00 Test Item Value Reference Range Interpretation Comments Troponin-I (test code 0.62 See_Comment [Auto mated message] The = Troponin-I) system which g enerated this result transmit maria c reference range : <=0.40. The reference r maría was not used to interpr et this result as karthikeyan l/abnormal. [facility] HospitalXauqkqpTLNSEWYSRI4039-09-63 05:09:00 Test Item Value Reference Range Interpretation Comments Segs (test code = Segs) 75.1 45.0-75.0 [facility] HospitalBpjyxlvQATMUQIAHI7333-86-96 05:09:00 Test Item Value Reference Range Interpretation Comments Lymphocytes (test code = Lymphocytes) 13.1 20.0-40.0 [facility] HospitalNecikmaACPVWTOQCE8298-87-69 05:09:00 Test Item Value Reference Range Interpretation Comments Monocytes (test code = Monocytes) 11.3 2.0-12.0 [facility] HospitalAnyaeyoEUTYJZULWK9962-73-96 05:09:00 Test Item Value Reference Range Interpretation Comments Eosinophils (test code = 0.2 See_Comment [A utomated message] The Eosinophils) system which ge nerated this result tra nsmitted reference range : <=4.0. The reference r maría was not used to int erpret this result as normal/abnormal . [facility] HospitalGgiiiecQWQADSDRNI1211-93-85 05:09:00 Test Item Value Reference Range Interpretation Comments Basophils (test code = 0.3 See_Comment [Aut omated message] The Basophils) system which ge nerated this result tra nsmitted reference range : <=1.0. The reference r maría was not used to int erpret this result as normal/abnormal . [facility] HospitalDlcrngvCAZNPMIRAI0466-57-55 05:09:00 Test Item Value Reference Range Interpretation Comments Neutrophils # (test code = Neutrophils 8.6 1.5-8.1 #) [facility] CampusEkjngjtILBULOOSNX1234-03-78 05:09:00 Test Item Value Reference Range Interpretation Comments Lymphocytes # (test code = Lymphocytes 1.5 1.0-5.5 #) [facility] HospitalVnqxqlaPTVTMATETF2682-36-84 05:09:00 Test Item Value Reference Range Interpretation Comments Monocytes # (test code 1.3 See_Comment [Aut omated message] The = Monocytes #) system which generated this result tra nsmitted reference range : <=0.8. The reference r maría was not used to int erpret this result as normal/abnormal . [facility]ATHYROID JVUYZKE1380-78-49 05:09:00 Test Item Value Reference Range Interpretation Comments Ca Ion WB (test code = Ca Ion WB) 1.19 1.05-1.25 [facility] HospitalATHYROID [id number] 05:09:00 Test Item Value Reference Range Interpretation Comments Ca Norm WB (test code = Ca Norm WB) 1.12 1.05-1.25 [facility] HospitalCARDIAC RKUGYIM5381-03-12 05:09:00 Test Item Value Reference Range Interpretation Comments Troponin-I (test code 0.62 See_Comment [Auto mated message] The = Troponin-I) system which g enerated this result transmit maria c reference range : <=0.40. The reference r maría was not used to interpr et this result as karthikeyan l/abnormal. [facility] HospitalDvcuyidRCENUMQCRK6846-34-18 05:09:00 Test Item Value Reference Range Interpretation Comments Segs (test code = Segs) 75.1 45.0-75.0 [facility] HospitalLoqrvimMVTFYUWCXF1431-62-04 05:09:00 Test Item Value Reference Range Interpretation Comments Lymphocytes (test code = Lymphocytes) 13.1 20.0-40.0 [facility] CampusFnxpzuiGFOONVTQYS1670-09-58 05:09:00 Test Item Value Reference Range Interpretation Comments Monocytes (test code = Monocytes) 11.3 2.0-12.0 [facility] HospitalXaihjzhXBHBAUGHFT0056-16-73 05:09:00 Test Item Value Reference Range Interpretation Comments Eosinophils (test code = 0.2 See_Comment [A utomated message] The Eosinophils) system which ge nerated this result tra nsmitted reference range : <=4.0. The reference r maría was not used to int erpret this result as normal/abnormal . [facility] CampusrachnaWeeleoGRBFJWB3948-20-10 21:41:00 Test Item Value Reference Range Interpretation Comments Troponin-I (test code 0.73 See_Comment [Auto mated message] The = Troponin-I) system which g enerated this result transmit maria c reference range : <=0.40. The reference r maría was not used to interpr et this result as karthikeyan l/abnormal. [facility] CampusrachnaWeeleoHIEAIPF9311-19-59 21:41:00 Test Item Value Reference Range Interpretation Comments Troponin-I (test code 0.73 See_Comment [Auto mated message] The = Troponin-I) system which g enerated this result transmit maria c reference range : <=0.40. The reference r maría was not used to interpr et this result as karthikeyan l/abnormal. [facility] Campusu.sit2019-09-10 21:41:00 Test Item Value Reference Range Interpretation Comments Troponin-I (test code 0.73 See_Comment [Auto mated message] The = Troponin-I) system which g enerated this result transmit maria c reference range : <=0.40. The reference r maría was not used to interpr et this result as karthikeyan l/abnormal. [facility]sit2019-09-10 21:41:00 Test Item Value Reference Range Interpretation Comments Troponin-I (test code 0.73 See_Comment [Auto mated message] The = Troponin-I) system which g enerated this result transmit maria c reference range : <=0.40. The reference r maría was not used to interpr et this result as karthikeyan l/abnormal. [facility] [employer]2019-09-10 21:41:00 Test Item Value Reference Range Interpretation Comments Troponin-I (test code 0.73 See_Comment [Auto mated message] The = Troponin-I) system which g enerated this result transmit maria c reference range : <=0.40. The reference r maría was not used to interpr et this result as karthikeyan l/abnormal. [facility] [employer]2019-09-10 21:41:00 Test Item Value Reference Range Interpretation Comments Troponin-I (test code 0.73 See_Comment [Auto mated message] The = Troponin-I) system which g enerated this result transmit maria c reference range : <=0.40. The reference r maría was not used to interpr et this result as karthikeyan l/abnormal. [facility] [employer]2019-09-10 14:27:00 Test Item Value Reference Range Interpretation Comments Troponin-I (test code 0.53 See_Comment [Auto mated message] The = Troponin-I) system which g enerated this result transmit maria c reference range : <=0.40. The reference r maría was not used to interpr et this result as karthikeyan l/abnormal. [facility] 14:27:00 Test Item Value Reference Range Interpretation Comments Troponin-I (test code 0.53 See_Comment [Auto mated message] The = Troponin-I) system which g enerated this result transmit maria c reference range : <=0.40. The reference r maría was not used to interpr et this result as karthikeyan l/abnormal. [facility]-10 14:27:00 Test Item Value Reference Range Interpretation Comments Troponin-I (test code 0.53 See_Comment [Auto mated message] The = Troponin-I) system which g enerated this result transmit maria c reference range : <=0.40. The reference r maría was not used to interpr et this result as karthikeyan l/abnormal. [facility] [employer]2019-09-10 14:27:00 Test Item Value Reference Range Interpretation Comments Troponin-I (test code 0.53 See_Comment [Auto mated message] The = Troponin-I) system which g enerated this result transmit maria c reference range : <=0.40. The reference r maría was not used to interpr et this result as karthikeyan l/abnormal. [facility] [employer]2019-09-10 14:27:00 Test Item Value Reference Range Interpretation Comments Troponin-I (test code 0.53 See_Comment [Auto mated message] The = Troponin-I) system which g enerated this result transmit maria c reference range : <=0.40. The reference r maría was not used to interpr et this result as karthikeyan l/abnormal. [facility] [employer]2019-09-10 14:27:00 Test Item Value Reference Range Interpretation Comments Troponin-I (test code 0.53 See_Comment [Auto mated message] The = Troponin-I) system which g enerated this result transmit maria c reference range : <=0.40. The reference r maría was not used to interpr et this result as karthikeyan l/abnormal. [facility] HospitalCIPROFLOXACIN:SUSC:PT:ISOLATE:ORDQN:[id number] 13:00:00 Test Item Value Reference Range Interpretation Comments Gram Stain Report Gram Stain Performed By: (test code = Gram [facility] Stain Report) [facility]IPROFLOXACIN:SUSC:PT:ISOLATE:ORDQN:[id number] 13:00:00 Test Item Value Reference Range Interpretation Comments Culture: Respiratory Few Serratia w/Gram Stain (test code marcescens Few Yeast = Culture: Respiratory Normal Respiratory w/Gram Stain) Cynthia Isolated [facility] HospitalCIPROFLOXACIN:SUSC:PT:ISOLATE:ORDQN:[id number] 13:00:00 Test Item Value Reference Range Interpretation Comments Serratia marcescens (test Serratia marcescens code = Serratia marcescens) [facility] HospitalCIPROFLOXACIN:SUSC:PT:ISOLATE:ORDQN:[id number] 13:00:00 Test Item Value Reference Range Interpretation Comments Gram Stain Report Gram Stain Performed By: (test code = Gram [facility] [place] Stain Report) [facility]CIPROFLOXACIN:SUSC:PT:ISOLATE:ORDQN:[id number] 13:00:00 Test Item Value Reference Range Interpretation Comments Culture: Respiratory Few Serratia w/Gram Stain (test code marcescens Few Yeast = Culture: Respiratory Normal Respiratory w/Gram Stain) [facility]olated [facility] HospitalCIPROFLOXACIN:SUSC:PT:ISOLATE:ORDQN:[id number] 13:00:00 Test Item Value Reference Range Interpretation Comments Serratia marcescens (test Serratia marcescens code = Serratia marcescens) [facility] HospitalCIPROFLOXACIN:SUSC:PT:ISOLATE:ORDQN:[id number] 13:00:00 Test Item Value Reference Range Interpretation Comments Gram Stain Report Gram Stain Performed By: (test code = Gram [facility] [place] Stain Report) [facility]USC:PT:ISOLATE:ORDQN:[id number] 13:00:00 Test Item Value Reference Range Interpretation Comments Culture: Respiratory Few Serratia w/Gram Stain (test code marcescens Few Yeast = Culture: Respiratory Normal Respiratory w/Gram Stain) [facility]olated [facility] HospitalFRANCIAPROFLOXACIN:SUSC:PT:ISOLATE:ORDQN:[id number] 13:00:00 Test Item Value Reference Range Interpretation Comments Serratia marcescens (test Serratia marcescens code = Serratia marcescens) [facility] DallasPROFLOXACIN:SUSC:PT:ISOLATE:ORDQN:[id number] 13:00:00 Test Item Value Reference Range Interpretation Comments Gram Stain Report Gram Stain Performed By: (test code = Gram [facility] Stain Report) [facility]CIPROFLOXACIN:SUSC:PT:ISOLATE:ORDQN:[id number] 13:00:00 Test Item Value Reference Range Interpretation Comments Culture: Respiratory Few Serratia w/Gram Stain (test code marcescens Few Yeast = Culture: Respiratory Normal Respiratory w/Gram Stain) [facility]olated [place] [facility] DallasPROFLOXACIN:SUSC:PT:ISOLATE:ORDQN:[id number] 13:00:00 Test Item Value Reference Range Interpretation Comments Serratia marcescens (test Serratia marcescens code = Serratia marcescens) [facility] HospitalCIPROFLOXACIN:SUSC:PT:ISOLATE:ORDQN:[id number] 13:00:00 Test Item Value Reference Range Interpretation Comments Gram Stain Report Gram Stain Performed By: (test code = Gram [facility] Stain Report) [facility]CIPROFLOXACIN:SUSC:PT:ISOLATE:ORDQN:[id number] 13:00:00 Test Item Value Reference Range Interpretation Comments Culture: Respiratory Few Serratia w/Gram Stain (test code marcescens Few Yeast = Culture: Respiratory Normal Respiratory w/Gram Stain) [facility] HospitalCIPROFLOXACIN:SUSC:PT:ISOLATE:ORDQN:[id number] 13:00:00 Test Item Value Reference Range Interpretation Comments Serratia marcescens (test Serratia marcescens code = Serratia marcescens) [facility] HospitalCIPROFLOXACIN:SUSC:PT:ISOLATE:ORDQN:[id number] 13:00:00 Test Item Value Reference Range Interpretation Comments Gram Stain Report Gram Stain Performed By: (test code = Gram [facility] Stain Report) [facility]:SUSC:PT:ISOLATE:ORDQN:[id number] 13:00:00 Test Item Value Reference Range Interpretation Comments Culture: Respiratory Few Serratia w/Gram Stain (test code marcescens Few Yeast = Culture: Respiratory Normal Respiratory w/Gram Stain) [facility] Isolated [facility] MicPROFLOXACIN:SUSC:PT:ISOLATE:ORDQN:[id number] 13:00:00 Test Item Value Reference Range Interpretation Comments Serratia marcescens (test Serratia marcescens code = Serratia marcescens) [facility]2019-09-10 05:32:00 Test Item Value Reference Range Interpretation Comments Total Protein (test code = Total 6.6 6.4-8.4 Protein) [facility]2019-09-10 05:32:00 Test Item Value Reference Range Interpretation Comments Albumin Lvl (test code = Albumin Lvl) 3.3 3.5-5.0 [facility]2019-09-10 05:32:00 Test Item Value Reference Range Interpretation Comments ALT (test code = ALT) 28 See_Comment [Auto mated message] The system which ge nerated this result transmit maria c reference range : <=65. The reference range was not used to interpr et this result as karthikeyan l/abnormal. [facility] HospitalFocal [facility] Pharmaceuticals [id number] 05:32:00 Test Item Value Reference Range Interpretation Comments AST (test code = AST) 38 See_Comment [Auto mated message] The system which ge nerated this result transmit maria c reference range : <=37. The reference range was not used to interpr et this result as karthikeyan l/abnormal. [facility] [id number] 05:32:00 Test Item Value Reference Range Interpretation Comments Alk Phos (test code = Alk Phos) 77 39-136 [facility]2019-09-10 05:32:00 Test Item Value Reference Range Interpretation Comments Bili Total (test code = Bili Total) 0.5 0.2-1.3 [facility]2019-09-10 05:32:00 Test Item Value Reference Range Interpretation Comments B/C Ratio (test code = B/C Ratio) 24 1 6-25 [facility]2019-09-10 05:32:00 Test Item Value Reference Range Interpretation Comments Globulin (test code = Globulin) 3.3 2.7-4.2 [facility]2019-09-10 05:32:00 Test Item Value Reference Range Interpretation Comments A/G Ratio (test code = A/G Ratio) 1.0 1 0.7-1.6 [facility]2019-09-10 05:32:00 Test Item Value Reference Range Interpretation Comments Procalcitonin Lvl (test 5.00 See_Comment [Au tomated message] code = Procalcitonin Lvl) Th e system which generated this result transmitted ref erence range: <=0.10. The reference range was not used to interpr et this result as normal/abnormal . [id number] 05:32:00 Test Item Value Reference Range Interpretation Comments Segs (test code = Segs) 76.1 45.0-75.0 [id number] 05:32:00 Test Item Value Reference Range Interpretation Comments Lymphocytes (test code = Lymphocytes) 12.8 20.0-40.0 [facility]i[id number] 05:32:00 Test Item Value Reference Range Interpretation Comments Monocytes (test code = Monocytes) 10.8 2.0-12.0 [id number] 05:32:00 Test Item Value Reference Range Interpretation Comments Basophils (test code = 0.3 See_Comment [Aut omated message] The Basophils) system which ge nerated this result tra nsmitted reference range : <=1.0. The reference r maría was not used to int erpret this result as normal/abnormal . [id number] 05:32:00 Test Item Value Reference Range Interpretation Comments Neutrophils # (test code = Neutrophils 12.4 1.5-8.1 #) [facility]burgOikdktwLPKNONYHOM1829-41-97 05:32:00 Test Item Value Reference Range Interpretation Comments Lymphocytes # (test code = Lymphocytes 2.1 1.0-5.5 #) [facility]burgHctfgqcDILEZYVNBJ0265-77-79 05:32:00 Test Item Value Reference Range Interpretation Comments Monocytes # (test code 1.8 See_Comment [Aut omated message] The = Monocytes #) system which generated this result tra nsmitted reference range : <=0.8. The reference r maría was not used to int erpret this result as normal/abnormal . [facility] [id number] 05:32:00 Test Item Value Reference Range Interpretation Comments Ca Ion WB (test code = Ca Ion WB) 1.07 1.05-1.25 [facility] [id number] 05:32:00 Test Item Value Reference Range Interpretation Comments Ca Norm WB (test code = Ca Norm WB) 1.04 1.05-1.25 [facility] [id number] 05:32:00 Test Item Value Reference Range Interpretation Comments U Creatinine (test code = U 184.00 Creatinine) [facility]2019-09-10 05:32:00 Test Item Value Reference Range Interpretation Comments U Protein (test code = U Protein) 39.4 [facility]2019-09-10 05:32:00 Test Item Value Reference Range Interpretation Comments U Prot/Creat (test code = U 0.21 1 Prot/Creat) [facility] [id number] 05:32:00 Test Item Value Reference Range Interpretation Comments Culture: Urine (test code = No Growth Culture: Urine) [facility] [id number] 05:32:00 Test Item Value Reference Range Interpretation Comments Total Protein (test code = Total 6.6 6.4-8.4 Protein) [facility] [id number] 05:32:00 Test Item Value Reference Range Interpretation Comments Albumin Lvl (test code = Albumin Lvl) 3.3 3.5-5.0 [facility] [id number] 05:32:00 Test Item Value Reference Range Interpretation Comments ALT (test code = ALT) 28 See_Comment [Auto mated message] The system which ge nerated this result transmit maria c reference range : <=65. The reference range was not used to interpr et this result as karthikeyan l/abnormal. [facility] [id number] 05:32:00 Test Item Value Reference Range Interpretation Comments AST (test code = AST) 38 See_Comment [Auto mated message] The system which ge nerated this result transmit maria c reference range : <=37. The reference range was not used to interpr et this result as karthikeyan l/abnormal. [facility]2019-09-10 05:32:00 Test Item Value Reference Range Interpretation Comments Alk Phos (test code = Alk Phos) 77 39-136 [facility]2019-09-10 05:32:00 Test Item Value Reference Range Interpretation Comments Bili Total (test code = Bili Total) 0.5 0.2-1.3 [facility]2019-09-10 05:32:00 Test Item Value Reference Range Interpretation Comments B/C Ratio (test code = B/C Ratio) 24 1 6-25 [facility]2019-09-10 05:32:00 Test Item Value Reference Range Interpretation Comments Globulin (test code = Globulin) 3.3 2.7-4.2 [facility]2019-09-10 05:32:00 Test Item Value Reference Range Interpretation Comments A/G Ratio (test code = A/G Ratio) 1.0 1 0.7-1.6 [facility]2019-09-10 05:32:00 Test Item Value Reference Range Interpretation Comments Procalcitonin Lvl (test 5.00 See_Comment [Au tomated message] code = Procalcitonin Lvl) Th e system which generated this result transmitted ref erence range: <=0.10. The reference range was not used to interpr et this result as normal/abnormal . [id number] 05:32:00 Test Item Value Reference Range Interpretation Comments Segs (test code = Segs) 76.1 45.0-75.0 [facility]burgBiuhgzyVMZLGDHHSS1319-22-03 05:32:00 Test Item Value Reference Range Interpretation Comments Lymphocytes (test code = Lymphocytes) 12.8 20.0-40.0 [facility]bu[id number] 05:32:00 Test Item Value Reference Range Interpretation Comments Monocytes (test code = Monocytes) 10.8 2.0-12.0 [facility]burgBgxkrbyFCWWMIJQID5771-31-71 05:32:00 Test Item Value Reference Range Interpretation Comments Basophils (test code = 0.3 See_Comment [Aut omated message] The Basophils) system which ge nerated this result tra nsmitted reference range : <=1.0. The reference r maría was not used to int erpret this result as normal/abnormal . [facility] HospitalLecolckEOWCYWSLVV8015-45-11 05:32:00 Test Item Value Reference Range Interpretation Comments Neutrophils # (test code = Neutrophils 12.4 1.5-8.1 #) [facility] Hos[id number] 05:32:00 Test Item Value Reference Range Interpretation Comments Lymphocytes # (test code = Lymphocytes 2.1 1.0-5.5 #) [facility] HospitalRdngsvjFNFKCRIWNP2661-65-72 05:32:00 Test Item Value Reference Range Interpretation Comments Monocytes # (test code 1.8 See_Comment [Aut omated message] The = Monocytes #) system which generated this result tra nsmitted reference range : <=0.8. The reference r maría was not used to int erpret this result as normal/abnormal . [facility] CampusannPARATHYROID [id number] 05:32:00 Test Item Value Reference Range Interpretation Comments Ca Ion WB (test code = Ca Ion WB) 1.07 1.05-1.25 [facility] HospitalPARATHYROID [id number] 05:32:00 Test Item Value Reference Range Interpretation Comments Ca Norm WB (test code = Ca Norm WB) 1.04 1.05-1.25 [facility] [id number] 05:32:00 Test Item Value Reference Range Interpretation Comments U Creatinine (test code = U 184.00 Creatinine) [facility] [id number] 05:32:00 Test Item Value Reference Range Interpretation Comments U Protein (test code = U Protein) 39.4 [facility] [id number] 05:32:00 Test Item Value Reference Range Interpretation Comments U Prot/Creat (test code = U 0.21 1 Prot/Creat) [facility] HospitalCulture: [id number] 05:32:00 Test Item Value Reference Range Interpretation Comments Culture: Urine (test code = No Growth Culture: Urine) [facility] HospitalCHEM [id number] 05:32:00 Test Item Value Reference Range Interpretation Comments Total Protein (test code = Total 6.6 6.4-8.4 Protein) [facility]2019-09-10 05:32:00 Test Item Value Reference Range Interpretation Comments Albumin Lvl (test code = Albumin Lvl) 3.3 3.5-5.0 [facility]2019-09-10 05:32:00 Test Item Value Reference Range Interpretation Comments ALT (test code = ALT) 28 See_Comment [Auto mated message] The system which ge nerated this result transmit maria c reference range : <=65. The reference range was not used to interpr et this result as karthikeyan l/abnormal. [facility]2019-09-10 05:32:00 Test Item Value Reference Range Interpretation Comments AST (test code = AST) 38 See_Comment [Auto mated message] The system which ge nerated this result transmit maria c reference range : <=37. The reference range was not used to interpr et this result as karthikeyan l/abnormal. [facility]2019-09-10 05:32:00 Test Item Value Reference Range Interpretation Comments Alk Phos (test code = Alk Phos) 77 39-136 [facility]2019-09-10 05:32:00 Test Item Value Reference Range Interpretation Comments Bili Total (test code = Bili Total) 0.5 0.2-1.3 [facility]2019-09-10 05:32:00 Test Item Value Reference Range Interpretation Comments B/C Ratio (test code = B/C Ratio) 24 1 6-25 [facility]2019-09-10 05:32:00 Test Item Value Reference Range Interpretation Comments Globulin (test code = Globulin) 3.3 2.7-4.2 [place] [id number] 05:32:00 Test Item Value Reference Range Interpretation Comments A/G Ratio (test code = A/G Ratio) 1.0 1 0.7-1.6 [facility]2019-09-10 05:32:00 Test Item Value Reference Range Interpretation Comments Procalcitonin Lvl (test 5.00 See_Comment [Au tomated message] code = Procalcitonin Lvl) Th e system which generated this result transmitted ref erence range: <=0.10. The reference range was not used to interpr et this result as normal/abnormal . [facility] HospitalIajgrbeIOKNAUNRPG4096-42-02 05:32:00 Test Item Value Reference Range Interpretation Comments Segs (test code = Segs) 76.1 45.0-75.0 [id number] 05:32:00 Test Item Value Reference Range Interpretation Comments Lymphocytes (test code = Lymphocytes) 12.8 20.0-40.0 [facility]burgNhnbgixDUHTBKSKNU6434-60-67 05:32:00 Test Item Value Reference Range Interpretation Comments Monocytes (test code = Monocytes) 10.8 2.0-12.0 [facility] Hospit[id number] 05:32:00 Test Item Value Reference Range Interpretation Comments Basophils (test code = 0.3 See_Comment [Aut omated message] The Basophils) system which ge nerated this result tra nsmitted reference range : <=1.0. The reference r maría was not used to int erpret this result as normal/abnormal . [facility]bu[id number] 05:32:00 Test Item Value Reference Range Interpretation Comments Neutrophils # (test code = Neutrophils 12.4 1.5-8.1 #) [facility]burgCyscnwfRZXFIPPOUK7166-24-11 05:32:00 Test Item Value Reference Range Interpretation Comments Lymphocytes # (test code = Lymphocytes 2.1 1.0-5.5 #) [facility]burgPnstjteEJXVCPBEJA8154-01-87 05:32:00 Test Item Value Reference Range Interpretation Comments Monocytes # (test code 1.8 See_Comment [Aut omated message] The = Monocytes #) system which generated this result tra nsmitted reference range : <=0.8. The reference r maría was not used to int erpret this result as normal/abnormal . [facility] CampusannPARATHYROID [id number] 05:32:00 Test Item Value Reference Range Interpretation Comments Ca Ion WB (test code = Ca Ion WB) 1.07 1.05-1.25 [facility]ATHY[facility] [id number] 05:32:00 Test Item Value Reference Range Interpretation Comments Ca Norm WB (test code = Ca Norm WB) 1.04 1.05-1.25 [facility] [id number] 05:32:00 Test Item Value Reference Range Interpretation Comments U Creatinine (test code = U 184.00 Creatinine) [facility]2019-09-10 05:32:00 Test Item Value Reference Range Interpretation Comments U Protein (test code = U Protein) 39.4 [facility]2019-09-10 05:32:00 Test Item Value Reference Range Interpretation Comments U Prot/Creat (test code = U 0.21 1 Prot/Creat) [facility]Culture: [id number] 05:32:00 Test Item Value Reference Range Interpretation Comments Culture: Urine (test code = No Growth Culture: Urine) [facility] [id number] 05:32:00 Test Item Value Reference Range Interpretation Comments Total Protein (test code = Total 6.6 6.4-8.4 Protein) [facility]2019-09-10 05:32:00 Test Item Value Reference Range Interpretation Comments Albumin Lvl (test code = Albumin Lvl) 3.3 3.5-5.0 [facility]2019-09-10 05:32:00 Test Item Value Reference Range Interpretation Comments ALT (test code = ALT) 28 See_Comment [Auto mated message] The system which ge nerated this result transmit maria c reference range : <=65. The reference range was not used to interpr et this result as karthikeyan l/abnormal. [facility]2019-09-10 05:32:00 Test Item Value Reference Range Interpretation Comments AST (test code = AST) 38 See_Comment [Auto mated message] The system which ge nerated this result transmit maria c reference range : <=37. The reference range was not used to interpr et this result as karthikeyan l/abnormal. [facility]2019-09-10 05:32:00 Test Item Value Reference Range Interpretation Comments Alk Phos (test code = Alk Phos) 77 39-136 [facility]2019-09-10 05:32:00 Test Item Value Reference Range Interpretation Comments Bili Total (test code = Bili Total) 0.5 0.2-1.3 [facility]2019-09-10 05:32:00 Test Item Value Reference Range Interpretation Comments B/C Ratio (test code = B/C Ratio) 24 1 6-25 [facility]2019-09-10 05:32:00 Test Item Value Reference Range Interpretation Comments Globulin (test code = Globulin) 3.3 2.7-4.2 [facility]2019-09-10 05:32:00 Test Item Value Reference Range Interpretation Comments A/G Ratio (test code = A/G Ratio) 1.0 1 0.7-1.6 [facility]2019-09-10 05:32:00 Test Item Value Reference Range Interpretation Comments Procalcitonin Lvl (test 5.00 See_Comment [Au tomated message] code = Procalcitonin Lvl) Th e system which generated this result transmitted ref erence range: <=0.10. The reference range was not used to interpr et this result as normal/abnormal . [id number] 05:32:00 Test Item Value Reference Range Interpretation Comments Segs (test code = Segs) 76.1 45.0-75.0 [id number] 05:32:00 Test Item Value Reference Range Interpretation Comments Lymphocytes (test code = Lymphocytes) 12.8 20.0-40.0 [id number] 05:32:00 Test Item Value Reference Range Interpretation Comments Monocytes (test code = Monocytes) 10.8 2.0-12.0 [id number] 05:32:00 Test Item Value Reference Range Interpretation Comments Basophils (test code = 0.3 See_Comment [Aut omated message] The Basophils) system which ge nerated this result tra nsmitted reference range : <=1.0. The reference r maría was not used to int erpret this result as normal/abnormal . [facility]burgCigdheaYRSBYIHKXM9606-61-48 05:32:00 Test Item Value Reference Range Interpretation Comments Neutrophils # (test code = Neutrophils 12.4 1.5-8.1 #) [facility]burgRdnyvyjNXXYTALWYI9284-91-25 05:32:00 Test Item Value Reference Range Interpretation Comments Lymphocytes # (test code = Lymphocytes 2.1 1.0-5.5 #) [facility]burgVupqvakANZQMFWUQJ0429-66-31 05:32:00 Test Item Value Reference Range Interpretation Comments Monocytes # (test code 1.8 See_Comment [Aut omated message] The = Monocytes #) system which generated this result tra nsmitted reference range : <=0.8. The reference r maría was not used to int erpret this result as normal/abnormal . [facility] HospitalATHYROID [id number] 05:32:00 Test Item Value Reference Range Interpretation Comments Ca Ion WB (test code = Ca Ion WB) 1.07 1.05-1.25 [facility] HospitalPARATHYROID [id number] 05:32:00 Test Item Value Reference Range Interpretation Comments Ca Norm WB (test code = Ca Norm WB) 1.04 1.05-1.25 [facility] [id number] 05:32:00 Test Item Value Reference Range Interpretation Comments U Creatinine (test code = U 184.00 Creatinine) [facility] [id number] 05:32:00 Test Item Value Reference Range Interpretation Comments U Protein (test code = U Protein) 39.4 [facility]2019-09-10 05:32:00 Test Item Value Reference Range Interpretation Comments U Prot/Creat (test code = U 0.21 1 Prot/Creat) [facility]Culture: [id number] 05:32:00 Test Item Value Reference Range Interpretation Comments Culture: Urine (test code = No Growth Culture: Urine) [facility] [id number] 05:32:00 Test Item Value Reference Range Interpretation Comments Total Protein (test code = Total 6.6 6.4-8.4 Protein) [facility] [id number] 05:32:00 Test Item Value Reference Range Interpretation Comments Albumin Lvl (test code = Albumin Lvl) 3.3 3.5-5.0 [facility]2019-09-10 05:32:00 Test Item Value Reference Range Interpretation Comments ALT (test code = ALT) 28 See_Comment [Auto mated message] The system which ge nerated this result transmit maria c reference range : <=65. The reference range was not used to interpr et this result as karthikeyan l/abnormal. [facility]2019-09-10 05:32:00 Test Item Value Reference Range Interpretation Comments AST (test code = AST) 38 See_Comment [Auto mated message] The system which ge nerated this result transmit maria c reference range : <=37. The reference range was not used to interpr et this result as karthikeyan l/abnormal. [facility]2019-09-10 05:32:00 Test Item Value Reference Range Interpretation Comments Alk Phos (test code = Alk Phos) 77 39-136 [facility]2019-09-10 05:32:00 Test Item Value Reference Range Interpretation Comments Bili Total (test code = Bili Total) 0.5 0.2-1.3 [facility]2019-09-10 05:32:00 Test Item Value Reference Range Interpretation Comments B/C Ratio (test code = B/C Ratio) 24 1 6-25 [facility]2019-09-10 05:32:00 Test Item Value Reference Range Interpretation Comments Globulin (test code = Globulin) 3.3 2.7-4.2 [facility]2019-09-10 05:32:00 Test Item Value Reference Range Interpretation Comments A/G Ratio (test code = A/G Ratio) 1.0 1 0.7-1.6 [facility]2019-09-10 05:32:00 Test Item Value Reference Range Interpretation Comments Procalcitonin Lvl (test 5.00 See_Comment [Au tomated message] code = Procalcitonin Lvl) Th e system which generated this result transmitted ref erence range: <=0.10. The reference range was not used to interpr et this result as normal/abnormal . [id number] 05:32:00 Test Item Value Reference Range Interpretation Comments Segs (test code = Segs) 76.1 45.0-75.0 [id number] 05:32:00 Test Item Value Reference Range Interpretation Comments Lymphocytes (test code = Lymphocytes) 12.8 20.0-40.0 [facility]burgPhfviupQFRZHQTUFI4121-01-42 05:32:00 Test Item Value Reference Range Interpretation Comments Monocytes (test code = Monocytes) 10.8 2.0-12.0 [id number] 05:32:00 Test Item Value Reference Range Interpretation Comments Basophils (test code = 0.3 See_Comment [Aut omated message] The Basophils) system which ge nerated this result tra nsmitted reference range : <=1.0. The reference r maría was not used to int erpret this result as normal/abnormal . [facility]burgVexlpkdAEUVFHNITS2612-26-05 05:32:00 Test Item Value Reference Range Interpretation Comments Neutrophils # (test code = Neutrophils 12.4 1.5-8.1 #) [facility] HospitalIuehefeOBDZFNZJST2383-33-27 05:32:00 Test Item Value Reference Range Interpretation Comments Lymphocytes # (test code = Lymphocytes 2.1 1.0-5.5 #) [facility] HospitalZxprixrVCREHMODIN6010-62-22 05:32:00 Test Item Value Reference Range Interpretation Comments Monocytes # (test code 1.8 See_Comment [Aut omated message] The = Monocytes #) system which generated this result tra nsmitted reference range : <=0.8. The reference r maría was not used to int erpret this result as normal/abnormal . [facility] HospitalATHYROID [id number] 05:32:00 Test Item Value Reference Range Interpretation Comments Ca Ion WB (test code = Ca Ion WB) 1.07 1.05-1.25 [facility] [id number] 05:32:00 Test Item Value Reference Range Interpretation Comments Ca Norm WB (test code = Ca Norm WB) 1.04 1.05-1.25 [facility] [id number] 05:32:00 Test Item Value Reference Range Interpretation Comments U Creatinine (test code = U 184.00 Creatinine) [facility] [id number] 05:32:00 Test Item Value Reference Range Interpretation Comments U Protein (test code = U Protein) 39.4 [facility] [id number] 05:32:00 Test Item Value Reference Range Interpretation Comments U Prot/Creat (test code = U 0.21 1 Prot/Creat) [facility] [id number] 05:32:00 Test Item Value Reference Range Interpretation Comments Culture: Urine (test code = No Growth Culture: Urine) [facility] [id number] 05:32:00 Test Item Value Reference Range Interpretation Comments Total Protein (test code = Total 6.6 6.4-8.4 Protein) [facility] [id number] 05:32:00 Test Item Value Reference Range Interpretation Comments Albumin Lvl (test code = Albumin Lvl) 3.3 3.5-5.0 [facility] [id number] 05:32:00 Test Item Value Reference Range Interpretation Comments ALT (test code = ALT) 28 See_Comment [Auto mated message] The system which ge nerated this result transmit maria c reference range : <=65. The reference range was not used to interpr et this result as karthikeyan l/abnormal. [facility]2019-09-10 05:32:00 Test Item Value Reference Range Interpretation Comments AST (test code = AST) 38 See_Comment [Auto mated message] The system which ge nerated this result transmit maria c reference range : <=37. The reference range was not used to interpr et this result as karthikeyan l/abnormal. [facility] CampusDomain Holdings GroupUNC HEALTH BLUE RIDGE - [id number] 05:32:00 Test Item Value Reference Range Interpretation Comments Alk Phos (test code = Alk Phos) 77 39-136 [facility]2019-09-10 05:32:00 Test Item Value Reference Range Interpretation Comments Bili Total (test code = Bili Total) 0.5 0.2-1.3 [facility]2019-09-10 05:32:00 Test Item Value Reference Range Interpretation Comments B/C Ratio (test code = B/C Ratio) 24 1 6-25 [facility]2019-09-10 05:32:00 Test Item Value Reference Range Interpretation Comments Globulin (test code = Globulin) 3.3 2.7-4.2 [facility]2019-09-10 05:32:00 Test Item Value Reference Range Interpretation Comments A/G Ratio (test code = A/G Ratio) 1.0 1 0.7-1.6 [facility]2019-09-10 05:32:00 Test Item Value Reference Range Interpretation Comments Procalcitonin Lvl (test 5.00 See_Comment [Au tomated message] code = Procalcitonin Lvl) Th e system which generated this result transmitted ref erence range: <=0.10. The reference range was not used to interpr et this result as normal/abnormal . [facility]burgSnahqhqPDWXWOJQUM9916-52-25 05:32:00 Test Item Value Reference Range Interpretation Comments Segs (test code = Segs) 76.1 45.0-75.0 [facility]i[id number] 05:32:00 Test Item Value Reference Range Interpretation Comments Lymphocytes (test code = Lymphocytes) 12.8 20.0-40.0 [facility]inburgNotkvalWIMFZJYPWM7940-11-49 05:32:00 Test Item Value Reference Range Interpretation Comments Monocytes (test code = Monocytes) 10.8 2.0-12.0 [facility]inburgIelgyonVWSZBBKMXH0173-35-41 05:32:00 Test Item Value Reference Range Interpretation Comments Basophils (test code = 0.3 See_Comment [Aut omated message] The Basophils) system which ge nerated this result tra nsmitted reference range : <=1.0. The reference r maría was not used to int erpret this result as normal/abnormal . [facility] EdinburgHyjujpnCSVRZIBBFX8284-46-32 05:32:00 Test Item Value Reference Range Interpretation Comments Neutrophils # (test code = Neutrophils 12.4 1.5-8.1 #) [facility]burgAqtiepcNWVWHVLBPW2287-16-25 05:32:00 Test Item Value Reference Range Interpretation Comments Lymphocytes # (test code = Lymphocytes 2.1 1.0-5.5 #) [facility]inburgVjwgzsxLKYQPNVLMN3705-89-43 05:32:00 Test Item Value Reference Range Interpretation Comments Monocytes # (test code 1.8 See_Comment [Aut omated message] The = Monocytes #) system which generated this result tra nsmitted reference range : <=0.8. The reference r maría was not used to int erpret this result as normal/abnormal . [facility]2019-09-10 05:32:00 Test Item Value Reference Range Interpretation Comments Ca Ion WB (test code = Ca Ion WB) 1.07 1.05-1.25 [facility]2019-09-10 05:32:00 Test Item Value Reference Range Interpretation Comments Ca Norm WB (test code = Ca Norm WB) 1.04 1.05-1.25 [facility]2019-09-10 05:32:00 Test Item Value Reference Range Interpretation Comments U Creatinine (test code = U 184.00 Creatinine) [facility]2019-09-10 05:32:00 Test Item Value Reference Range Interpretation Comments U Protein (test code = U Protein) 39.4 [facility]2019-09-10 05:32:00 Test Item Value Reference Range Interpretation Comments U Prot/Creat (test code = U 0.21 1 Prot/Creat) [id number] 05:32:00 Test Item Value Reference Range Interpretation Comments Culture: Urine (test code = No Growth Culture: Urine) [facility] AND [id number] 20:46:43 Test Item Value Reference Range Interpretation Comments UA Color (test code = Yellow (05/26/19 3:46 PM) UA Color) [facility] AND [id number] 20:46:43 Test Item Value Reference Range Interpretation Comments UA Turbidity (test code Slight *ABN*(05/26/19 = UA Turbidity) 3:46 PM) [facility] AND [id number] 20:46:43 Test Item Value Reference Range Interpretation Comments UA Spec Grav (test code = UA Spec 1.032 1 Grav) [facility] AND [id number] 20:46:43 Test Item Value Reference Range Interpretation Comments UA pH (test code = UA pH) 5.0 1 5.0-8.0 [facility] AND [id number] 20:46:43 Test Item Value Reference Range Interpretation Comments UA Protein (test code = UA Protein) 100 mg/dL [facility] AND [id number] 20:46:43 Test Item Value Reference Range Interpretation Comments UA Glucose (test code = UA Glucose) 50mg/dl [facility] AND [id number] 20:46:43 Test Item Value Reference Range Interpretation Comments UA Ketones (test code = Trace *ABN*(05/26/19 UA Ketones) 3:46 PM) [facility] AND [id number] 20:46:43 Test Item Value Reference Range Interpretation Comments UA Bili (test code = Negative *NA*(05/26/19 UA Bili) 3:46 PM) [facility] AND [id number] 20:46:43 Test Item Value Reference Range Interpretation Comments UA Blood (test code = Small *ABN*(05/26/19 UA Blood) 3:46 PM) [facility] AND [id number] 20:46:43 Test Item Value Reference Range Interpretation Comments UA Urobilinogen (test code = UA 2.0 0.1-1.0 Urobilinogen) [facility] AND [id number] 20:46:43 Test Item Value Reference Range Interpretation Comments UA Nitrite (test code Negative (05/26/19 3:46 = UA Nitrite) PM) [facility] AND [id number] 20:46:43 Test Item Value Reference Range Interpretation Comments UA Leuk Est (test Negative (05/26/19 3:46 code = UA Leuk Est) PM) [facility] AND [id number] 20:46:43 Test Item Value Reference Range Interpretation Comments UA Sq Epi (test code = UA Sq Occasional /LPF Epi) [facility] AND [id number] 20:46:43 Test Item Value Reference Range Interpretation Comments UA WBC (test code = 5 See_Comment [Automa maria c message] The UA WBC) system which ge nerated this result transmit maria c reference range : <=5. The reference range was not used to interpr et this result as karthikeyan l/abnormal. [facility] AND [id number] 20:46:43 Test Item Value Reference Range Interpretation Comments UA RBC (test code = 6 See_Comment [Automa maria c message] The UA RBC) system which ge nerated this result transmit maria c reference range : <=2. The reference range was not used to interpr et this result as karthikeyan l/abnormal. [facility] AND [id number] 20:46:43 Test Item Value Reference Range Interpretation Comments UA Mucus (test code = UA Mucus) Few /LPF [facility] AND [id number] 20:46:43 Test Item Value Reference Range Interpretation Comments UA Amorph Lamar (test code = Occasional /HPF UA Amorph Lamar) [facility] AND [id number] 20:46:43 Test Item Value Reference Range Interpretation Comments UA Hyal Cast (test 5 See_Comment [Automat ed message] The code = UA Hyal Cast) system which generated this result transmit maria c reference range : <=2. The reference range was not used to interpr et this result as karthikeyan l/abnormal. [facility] AND [id number] 20:46:43 Test Item Value Reference Range Interpretation Comments UA WBC Cast (test code = UA WBC Cast) 1 [facility] AND [id number] 20:46:43 Test Item Value Reference Range Interpretation Comments UA Color (test code = Yellow (05/26/19 3:46 PM) UA Color) [facility] AND [id number] 20:46:43 Test Item Value Reference Range Interpretation Comments UA Turbidity (test code Slight *ABN*(05/26/19 = UA Turbidity) 3:46 PM) [facility] AND [id number] 20:46:43 Test Item Value Reference Range Interpretation Comments UA Spec Grav (test code = UA Spec 1.032 1 Grav) [facility] AND [id number] 20:46:43 Test Item Value Reference Range Interpretation Comments UA pH (test code = UA pH) 5.0 1 5.0-8.0 [facility] AND [id number] 20:46:43 Test Item Value Reference Range Interpretation Comments UA Protein (test code = UA Protein) 100 mg/dL [facility] AND [id number] 20:46:43 Test Item Value Reference Range Interpretation Comments UA Glucose (test code = UA Glucose) 50mg/dl [facility] AND [id number] 20:46:43 Test Item Value Reference Range Interpretation Comments UA Ketones (test code = Trace *ABN*(05/26/19 UA Ketones) 3:46 PM) [facility] AND [id number] 20:46:43 Test Item Value Reference Range Interpretation Comments UA Bili (test code = Negative *NA*(05/26/19 UA Bili) 3:46 PM) [facility] AND [id number] 20:46:43 Test Item Value Reference Range Interpretation Comments UA Blood (test code = Small *ABN*(05/26/19 UA Blood) 3:46 PM) [facility] AND [id number] 20:46:43 Test Item Value Reference Range Interpretation Comments UA Urobilinogen (test code = UA 2.0 0.1-1.0 Urobilinogen) [facility] AND [id number] 20:46:43 Test Item Value Reference Range Interpretation Comments UA Nitrite (test code Negative (05/26/19 3:46 = UA Nitrite) PM) [facility] AND [id number] 20:46:43 Test Item Value Reference Range Interpretation Comments UA Leuk Est (test Negative (05/26/19 3:46 code = UA Leuk Est) PM) [facility] [id number] 20:46:43 Test Item Value Reference Range Interpretation Comments UA Sq Epi (test code = UA Sq Occasional /LPF Epi) [facility] AND [id number] 20:46:43 Test Item Value Reference Range Interpretation Comments UA WBC (test code = 5 See_Comment [Automa maria c message] The UA WBC) system which ge nerated this result transmit maria c reference range : <=5. The reference range was not used to interpr et this result as karthikeyan l/abnormal. [facility] [id number] 20:46:43 Test Item Value Reference Range Interpretation Comments UA RBC (test code = 6 See_Comment [Automa maria c message] The UA RBC) system which ge nerated this result transmit maria c reference range : <=2. The reference range was not used to interpr et this result as karthikeyan l/abnormal. [facility] [id number] 20:46:43 Test Item Value Reference Range Interpretation Comments UA Mucus (test code = UA Mucus) Few /LPF [facility] AND [id number] 20:46:43 Test Item Value Reference Range Interpretation Comments UA Amorph Lamar (test code = Occasional /HPF UA Amorph Lamar) [facility] AND [id number] 20:46:43 Test Item Value Reference Range Interpretation Comments UA Hyal Cast (test 5 See_Comment [Automat ed message] The code = UA Hyal Cast) system which generated this result transmit maria c reference range : <=2. The reference range was not used to interpr et this result as karthikeyan l/abnormal. [facility] [id number] 20:46:43 Test Item Value Reference Range Interpretation Comments UA WBC Cast (test code = UA WBC Cast) 1 [facility] AND [id number] 20:46:43 Test Item Value Reference Range Interpretation Comments UA Color (test code = Yellow (05/26/19 3:46 PM) UA Color) [facility] AND [id number] 20:46:43 Test Item Value Reference Range Interpretation Comments UA Turbidity (test code Slight *ABN*(05/26/19 = UA Turbidity) 3:46 PM) [facility] AND [id number] 20:46:43 Test Item Value Reference Range Interpretation Comments UA Spec Grav (test code = UA Spec 1.032 1 Grav) [facility] AND [id number] 20:46:43 Test Item Value Reference Range Interpretation Comments UA pH (test code = UA pH) 5.0 1 5.0-8.0 [facility] AND [id number] 20:46:43 Test Item Value Reference Range Interpretation Comments UA Protein (test code = UA Protein) 100 mg/dL [facility] AND [id number] 20:46:43 Test Item Value Reference Range Interpretation Comments UA Glucose (test code = UA Glucose) 50mg/dl [facility] AND [id number] 20:46:43 Test Item Value Reference Range Interpretation Comments UA Ketones (test code = Trace *ABN*(05/26/19 UA Ketones) 3:46 PM) [facility] AND [id number] 20:46:43 Test Item Value Reference Range Interpretation Comments UA Bili (test code = Negative *NA*(05/26/19 UA Bili) 3:46 PM) [facility] AND [id number] 20:46:43 Test Item Value Reference Range Interpretation Comments UA Blood (test code = Small *ABN*(05/26/19 UA Blood) 3:46 PM) [facility] AND [id number] 20:46:43 Test Item Value Reference Range Interpretation Comments UA Urobilinogen (test code = UA 2.0 0.1-1.0 Urobilinogen) [facility] AND [id number] 20:46:43 Test Item Value Reference Range Interpretation Comments UA Nitrite (test code Negative (05/26/19 3:46 = UA Nitrite) PM) [facility] AND [id number] 20:46:43 Test Item Value Reference Range Interpretation Comments UA Leuk Est (test Negative (05/26/19 3:46 code = UA Leuk Est) PM) [facility] AND [id number] 20:46:43 Test Item Value Reference Range Interpretation Comments UA Sq Epi (test code = UA Sq Occasional /LPF Epi) [facility] AND [id number] 20:46:43 Test Item Value Reference Range Interpretation Comments UA WBC (test code = 5 See_Comment [Automa maria c message] The UA WBC) system which ge nerated this result transmit maria c reference range : <=5. The reference range was not used to interpr et this result as karthikeyan l/abnormal. [facility] AND [id number] 20:46:43 Test Item Value Reference Range Interpretation Comments UA RBC (test code = 6 See_Comment [Automa maria c message] The UA RBC) system which ge nerated this result transmit maria c reference range : <=2. The reference range was not used to interpr et this result as karthikeyan l/abnormal. [facility] AND [id number] 20:46:43 Test Item Value Reference Range Interpretation Comments UA Mucus (test code = UA Mucus) Few /LPF [facility] AND [id number] 20:46:43 Test Item Value Reference Range Interpretation Comments UA Amorph Lamar (test code = Occasional /HPF UA Amorph Lamar) [facility] AND [id number] 20:46:43 Test Item Value Reference Range Interpretation Comments UA Hyal Cast (test 5 See_Comment [Automat ed message] The code = UA Hyal Cast) system which generated this result transmit maria c reference range : <=2. The reference range was not used to interpr et this result as karthikeyan l/abnormal. [facility] AND [id number] 20:46:43 Test Item Value Reference Range Interpretation Comments UA WBC Cast (test code = UA WBC Cast) 1 [facility] AND [id number] 20:46:43 Test Item Value Reference Range Interpretation Comments UA Color (test code = Yellow (05/26/19 3:46 PM) UA Color) [facility] AND [id number] 20:46:43 Test Item Value Reference Range Interpretation Comments UA Turbidity (test code Slight *ABN*(05/26/19 = UA Turbidity) 3:46 PM) [facility] AND [id number] 20:46:43 Test Item Value Reference Range Interpretation Comments UA Spec Grav (test code = UA Spec 1.032 1 Grav) [facility] AND [id number] 20:46:43 Test Item Value Reference Range Interpretation Comments UA pH (test code = UA pH) 5.0 1 5.0-8.0 [facility] AND [id number] 20:46:43 Test Item Value Reference Range Interpretation Comments UA Protein (test code = UA Protein) 100 mg/dL [facility] AND [id number] 20:46:43 Test Item Value Reference Range Interpretation Comments UA Glucose (test code = UA Glucose) 50mg/dl [facility] AND [id number] 20:46:43 Test Item Value Reference Range Interpretation Comments UA Ketones (test code = Trace *ABN*(05/26/19 UA Ketones) 3:46 PM) [facility] AND [id number] 20:46:43 Test Item Value Reference Range Interpretation Comments UA Bili (test code = Negative *NA*(05/26/19 UA Bili) 3:46 PM) [facility] AND [id number] 20:46:43 Test Item Value Reference Range Interpretation Comments UA Blood (test code = Small *ABN*(05/26/19 UA Blood) 3:46 PM) [facility] AND [id number] 20:46:43 Test Item Value Reference Range Interpretation Comments UA Urobilinogen (test code = UA 2.0 0.1-1.0 Urobilinogen) [facility] AND [id number] 20:46:43 Test Item Value Reference Range Interpretation Comments UA Nitrite (test code Negative (05/26/19 3:46 = UA Nitrite) PM) [facility] AND [id number] 20:46:43 Test Item Value Reference Range Interpretation Comments UA Leuk Est (test Negative (05/26/19 3:46 code = UA Leuk Est) PM) [facility] AND [id number] 20:46:43 Test Item Value Reference Range Interpretation Comments UA Sq Epi (test code = UA Sq Occasional /LPF Epi) [facility] AND [id number] 20:46:43 Test Item Value Reference Range Interpretation Comments UA WBC (test code = 5 See_Comment [Automa maria c message] The UA WBC) system which ge nerated this result transmit maria c reference range : <=5. The reference range was not used to interpr et this result as karthikeyan l/abnormal. [facility] AND [id number] 20:46:43 Test Item Value Reference Range Interpretation Comments UA RBC (test code = 6 See_Comment [Automa maria c message] The UA RBC) system which ge nerated this result transmit maria c reference range : <=2. The reference range was not used to interpr et this result as karthikeyan l/abnormal. [facility] AND [id number] 20:46:43 Test Item Value Reference Range Interpretation Comments UA Mucus (test code = UA Mucus) Few /LPF [facility] AND [id number] 20:46:43 Test Item Value Reference Range Interpretation Comments UA Amorph Lamar (test code = Occasional /HPF UA Amorph Lamar) [facility] AND [id number] 20:46:43 Test Item Value Reference Range Interpretation Comments UA Hyal Cast (test 5 See_Comment [Automat ed message] The code = UA Hyal Cast) system which generated this result transmit maria c reference range : <=2. The reference range was not used to interpr et this result as karthikeyan l/abnormal. [facility] AND [id number] 20:46:43 Test Item Value Reference Range Interpretation Comments UA WBC Cast (test code = UA WBC Cast) 1 [facility] AND [id number] 20:46:43 Test Item Value Reference Range Interpretation Comments UA Color (test code = Yellow (05/26/19 3:46 PM) UA Color) [facility] AND [id number] 20:46:43 Test Item Value Reference Range Interpretation Comments UA Turbidity (test code Slight *ABN*(05/26/19 = UA Turbidity) 3:46 PM) [facility] AND [id number] 20:46:43 Test Item Value Reference Range Interpretation Comments UA Spec Grav (test code = UA Spec 1.032 1 Grav) [facility] AND [id number] 20:46:43 Test Item Value Reference Range Interpretation Comments UA pH (test code = UA pH) 5.0 1 5.0-8.0 [facility] AND [id number] 20:46:43 Test Item Value Reference Range Interpretation Comments UA Protein (test code = UA Protein) 100 mg/dL [facility] AND [id number] 20:46:43 Test Item Value Reference Range Interpretation Comments UA Glucose (test code = UA Glucose) 50mg/dl [facility] AND [id number] 20:46:43 Test Item Value Reference Range Interpretation Comments UA Ketones (test code = Trace *ABN*(05/26/19 UA Ketones) 3:46 PM) [facility] AND [id number] 20:46:43 Test Item Value Reference Range Interpretation Comments UA Bili (test code = Negative *NA*(05/26/19 UA Bili) 3:46 PM) [facility] AND [id number] 20:46:43 Test Item Value Reference Range Interpretation Comments UA Blood (test code = Small *ABN*(05/26/19 UA Blood) 3:46 PM) [facility] AND [id number] 20:46:43 Test Item Value Reference Range Interpretation Comments UA Urobilinogen (test code = UA 2.0 0.1-1.0 Urobilinogen) [facility] AND [id number] 20:46:43 Test Item Value Reference Range Interpretation Comments UA Nitrite (test code Negative (05/26/19 3:46 = UA Nitrite) PM) [facility] AND [id number] 20:46:43 Test Item Value Reference Range Interpretation Comments UA Leuk Est (test Negative (05/26/19 3:46 code = UA Leuk Est) PM) [facility] AND [id number] 20:46:43 Test Item Value Reference Range Interpretation Comments UA Sq Epi (test code = UA Sq Occasional /LPF Epi) [facility] AND [id number] 20:46:43 Test Item Value Reference Range Interpretation Comments UA WBC (test code = 5 See_Comment [Automa maria c message] The UA WBC) system which ge nerated this result transmit maria c reference range : <=5. The reference range was not used to interpr et this result as karthikeyan l/abnormal. [facility] AND [id number] 20:46:43 Test Item Value Reference Range Interpretation Comments UA RBC (test code = 6 See_Comment [Automa maria c message] The UA RBC) system which ge nerated this result transmit maria c reference range : <=2. The reference range was not used to interpr et this result as karthikeyan l/abnormal. [facility] AND [id number] 20:46:43 Test Item Value Reference Range Interpretation Comments UA Mucus (test code = UA Mucus) Few /LPF [facility] AND [id number] 20:46:43 Test Item Value Reference Range Interpretation Comments UA Amorph Lamar (test code = Occasional /HPF UA Amorph Lamar) [facility] AND [id number] 20:46:43 Test Item Value Reference Range Interpretation Comments UA Hyal Cast (test 5 See_Comment [Automat ed message] The code = UA Hyal Cast) system which generated this result transmit maria c reference range : <=2. The reference range was not used to interpr et this result as karthikeyan l/abnormal. [facility] AND [id number] 20:46:43 Test Item Value Reference Range Interpretation Comments UA WBC Cast (test code = UA WBC Cast) 1 [facility] AND [id number] 20:46:43 Test Item Value Reference Range Interpretation Comments UA Color (test code = Yellow (05/26/19 3:46 PM) UA Color) [facility] AND [id number] 20:46:43 Test Item Value Reference Range Interpretation Comments UA Turbidity (test code Slight *ABN*(05/26/19 = UA Turbidity) 3:46 PM) [facility] AND [id number] 20:46:43 Test Item Value Reference Range Interpretation Comments UA Spec Grav (test code = UA Spec 1.032 1 Grav) [facility] AND [id number] 20:46:43 Test Item Value Reference Range Interpretation Comments UA pH (test code = UA pH) 5.0 1 5.0-8.0 [facility] AND [id number] 20:46:43 Test Item Value Reference Range Interpretation Comments UA Protein (test code = UA Protein) 100 mg/dL [facility] AND [id number] 20:46:43 Test Item Value Reference Range Interpretation Comments UA Glucose (test code = UA Glucose) 50mg/dl [facility] AND [id number] 20:46:43 Test Item Value Reference Range Interpretation Comments UA Ketones (test code = Trace *ABN*(05/26/19 UA Ketones) 3:46 PM) [facility] AND [id number] 20:46:43 Test Item Value Reference Range Interpretation Comments UA Bili (test code = Negative *NA*(05/26/19 UA Bili) 3:46 PM) [facility] AND [id number] 20:46:43 Test Item Value Reference Range Interpretation Comments UA Blood (test code = Small *ABN*(05/26/19 UA Blood) 3:46 PM) [facility] AND [id number] 20:46:43 Test Item Value Reference Range Interpretation Comments UA Urobilinogen (test code = UA 2.0 0.1-1.0 Urobilinogen) [facility] AND [id number] 20:46:43 Test Item Value Reference Range Interpretation Comments UA Nitrite (test code Negative (05/26/19 3:46 = UA Nitrite) PM) [facility] AND [id number] 20:46:43 Test Item Value Reference Range Interpretation Comments UA Leuk Est (test Negative (05/26/19 3:46 code = UA Leuk Est) PM) [facility] AND [id number] 20:46:43 Test Item Value Reference Range Interpretation Comments UA Sq Epi (test code = UA Sq Occasional /LPF Epi) [facility] AND [id number] 20:46:43 Test Item Value Reference Range Interpretation Comments UA WBC (test code = 5 See_Comment [Automa maria c message] The UA WBC) system which ge nerated this result transmit maria c reference range : <=5. The reference range was not used to interpr et this result as karthikeyan l/abnormal. [facility] AND [id number] 20:46:43 Test Item Value Reference Range Interpretation Comments UA RBC (test code = 6 See_Comment [Automa maria c message] The UA RBC) system which ge nerated this result transmit maria c reference range : <=2. The reference range was not used to interpr et this result as karthikeyan l/abnormal. [facility] AND [id number] 20:46:43 Test Item Value Reference Range Interpretation Comments UA Mucus (test code = UA Mucus) Few /LPF [facility] AND [id number] 20:46:43 Test Item Value Reference Range Interpretation Comments UA Amorph Lamar (test code = Occasional /HPF UA Amorph Lamar) [facility] AND [id number] 20:46:43 Test Item Value Reference Range Interpretation Comments UA Hyal Cast (test 5 See_Comment [Automat ed message] The code = [employer] Hy[employer]) system which generated this result transmit maria c reference range : <=2. The reference range was not used to interpr et this result as karthikeyan l/abnormal. [facility] [id number] 20:46:43 Test Item Value Reference Range Interpretation Comments UA WBC Cast (test code = UA WBC Cast) 1 [facility] [id number] 20:20:00 Test Item Value Reference Range Interpretation Comments U Amph Scr (test code Negative *NA*(05/26/19 = U Amph Scr) 3:20 PM) [facility] [id number] 20:20:00 Test Item Value Reference Range Interpretation Comments U Tereza Scr (test code Negative *NA*(05/26/19 = U Tereza Scr) 3:20 PM) [facility] [id number] 20:20:00 Test Item Value Reference Range Interpretation Comments U Benzodiaz Scr (test Negative *NA*(05/26/19 code = U Benzodiaz Scr) 3:20 PM) [facility] [id number] 20:20:00 Test Item Value Reference Range Interpretation Comments U Cocaine Scr (test Negative *NA*(05/26/19 code = U Cocaine Scr) 3:20 PM) [facility] [id number] 20:20:00 Test Item Value Reference Range Interpretation Comments U Cannab Scr (test Negative *NA*(05/26/19 code = U Cannab Scr) 3:20 PM) [facility] [id number] 20:20:00 Test Item Value Reference Range Interpretation Comments U Opiate Scr (test Negative *NA*(05/26/19 code = U Opiate Scr) 3:20 PM) [facility] [id number] 20:20:00 Test Item Value Reference Range Interpretation Comments U Phencyclidine Scr (test Negative *NA*(05/26/19 code = U Phencyclidine 3:20 PM) Scr) [facility] [id number] 20:20:00 Test Item Value Reference Range Interpretation Comments UDS Note (test code = See Note (05/26/19 3:20 UDS Note) PM) [facility] [id number] 20:20:00 Test Item Value Reference Range Interpretation Comments U Amph Scr (test code Negative *NA*(05/26/19 = U Amph Scr) 3:20 PM) [facility] [id number] 20:20:00 Test Item Value Reference Range Interpretation Comments U Tereza Scr (test code Negative *NA*(05/26/19 = U Tereza Scr) 3:20 PM) [facility] [id number] 20:20:00 Test Item Value Reference Range Interpretation Comments U Benzodiaz Scr (test Negative *NA*(05/26/19 code = U Benzodiaz Scr) 3:20 PM) [facility] [id number] 20:20:00 Test Item Value Reference Range Interpretation Comments U Cocaine Scr (test Negative *NA*(05/26/19 code = U Cocaine Scr) 3:20 PM) [facility] [id number] 20:20:00 Test Item Value Reference Range Interpretation Comments U Cannab Scr (test Negative *NA*(05/26/19 code = U Cannab Scr) 3:20 PM) [facility] [id number] 20:20:00 Test Item Value Reference Range Interpretation Comments U Opiate Scr (test Negative *NA*(05/26/19 code = U Opiate Scr) 3:20 PM) [facility] [id number] 20:20:00 Test Item Value Reference Range Interpretation Comments U Phencyclidine Scr (test Negative *NA*(05/26/19 code = U Phencyclidine 3:20 PM) Scr) [facility] [id number] 20:20:00 Test Item Value Reference Range Interpretation Comments UDS Note (test code = See Note (05/26/19 3:20 UDS Note) PM) [facility] [id number] 20:20:00 Test Item Value Reference Range Interpretation Comments U Amph Scr (test code Negative *NA*(05/26/19 = U Amph Scr) 3:20 PM) [facility] [id number] 20:20:00 Test Item Value Reference Range Interpretation Comments U Tereza Scr (test code Negative *NA*(05/26/19 = U Tereza Scr) 3:20 PM) [facility] [id number] 20:20:00 Test Item Value Reference Range Interpretation Comments U Benzodiaz Scr (test Negative *NA*(05/26/19 code = U Benzodiaz Scr) 3:20 PM) [facility] [id number] 20:20:00 Test Item Value Reference Range Interpretation Comments U Cocaine Scr (test Negative *NA*(05/26/19 code = U Cocaine Scr) 3:20 PM) [facility] [id number] 20:20:00 Test Item Value Reference Range Interpretation Comments U Cannab Scr (test Negative *NA*(05/26/19 code = U Cannab Scr) 3:20 PM) [facility] [id number] 20:20:00 Test Item Value Reference Range Interpretation Comments U Opiate Scr (test Negative *NA*(05/26/19 code = U Opiate Scr) 3:20 PM) [facility] [id number] 20:20:00 Test Item Value Reference Range Interpretation Comments U Phencyclidine Scr (test Negative *NA*(05/26/19 code = U Phencyclidine 3:20 PM) Scr) [facility] [id number] 20:20:00 Test Item Value Reference Range Interpretation Comments UDS Note (test code = See Note (05/26/19 3:20 UDS Note) PM) [facility] [id number] 20:20:00 Test Item Value Reference Range Interpretation Comments U Amph Scr (test code Negative *NA*(05/26/19 = U Amph Scr) 3:20 PM) [facility] [id number] 20:20:00 Test Item Value Reference Range Interpretation Comments U Tereza Scr (test code Negative *NA*(05/26/19 = U Tereza Scr) 3:20 PM) [facility] [id number] 20:20:00 Test Item Value Reference Range Interpretation Comments U Benzodiaz Scr (test Negative *NA*(05/26/19 code = U Benzodiaz Scr) 3:20 PM) [facility] [id number] 20:20:00 Test Item Value Reference Range Interpretation Comments U Cocaine Scr (test Negative *NA*(05/26/19 code = U Cocaine Scr) 3:20 PM) [facility] [id number] 20:20:00 Test Item Value Reference Range Interpretation Comments U Cannab Scr (test Negative *NA*(05/26/19 code = U Cannab Scr) 3:20 PM) [facility] [id number] 20:20:00 Test Item Value Reference Range Interpretation Comments U Opiate Scr (test Negative *NA*(05/26/19 code = U Opiate Scr) 3:20 PM) [facility] [id number] 20:20:00 Test Item Value Reference Range Interpretation Comments U Phencyclidine Scr (test Negative *NA*(05/26/19 code = U Phencyclidine 3:20 PM) Scr) [facility] [id number] 20:20:00 Test Item Value Reference Range Interpretation Comments UDS Note (test code = See Note (05/26/19 3:20 UDS Note) PM) [facility] [id number] 20:20:00 Test Item Value Reference Range Interpretation Comments U Amph Scr (test code Negative *NA*(05/26/19 = U Amph Scr) 3:20 PM) [facility] [id number] 20:20:00 Test Item Value Reference Range Interpretation Comments U Tereza Scr (test code Negative *NA*(05/26/19 = U Tereza Scr) 3:20 PM) [facility] [id number] 20:20:00 Test Item Value Reference Range Interpretation Comments U Benzodiaz Scr (test Negative *NA*(05/26/19 code = U Benzodiaz Scr) 3:20 PM) [facility] [id number] 20:20:00 Test Item Value Reference Range Interpretation Comments U Cocaine Scr (test Negative *NA*(05/26/19 code = U Cocaine Scr) 3:20 PM) [facility] [id number] 20:20:00 Test Item Value Reference Range Interpretation Comments U Cannab Scr (test Negative *NA*(05/26/19 code = U Cannab Scr) 3:20 PM) [facility] [id number] 20:20:00 Test Item Value Reference Range Interpretation Comments U Opiate Scr (test Negative *NA*(05/26/19 code = U Opiate Scr) 3:20 PM) [facility] [id number] 20:20:00 Test Item Value Reference Range Interpretation Comments U Phencyclidine Scr (test Negative *NA*(05/26/19 code = U Phencyclidine 3:20 PM) Scr) [facility] [id number] 20:20:00 Test Item Value Reference Range Interpretation Comments UDS Note (test code = See Note (05/26/19 3:20 UDS Note) PM) [facility] [id number] 20:20:00 Test Item Value Reference Range Interpretation Comments U Amph Scr (test code Negative *NA*(05/26/19 = U Amph Scr) 3:20 PM) [facility] [id number] 20:20:00 Test Item Value Reference Range Interpretation Comments U Tereza Scr (test code Negative *NA*(05/26/19 = U Tereza Scr) 3:20 PM) [facility] [id number] 20:20:00 Test Item Value Reference Range Interpretation Comments U Benzodiaz Scr (test Negative *NA*(05/26/19 code = U Benzodiaz Scr) 3:20 PM) [facility] [id number] 20:20:00 Test Item Value Reference Range Interpretation Comments U Cocaine Scr (test Negative *NA*(05/26/19 code = U Cocaine Scr) 3:20 PM) [facility] [id number] 20:20:00 Test Item Value Reference Range Interpretation Comments U Cannab Scr (test Negative *NA*(05/26/19 code = U Cannab Scr) 3:20 PM) [facility] [id number] 20:20:00 Test Item Value Reference Range Interpretation Comments U Opiate Scr (test Negative *NA*(05/26/19 code = U Opiate Scr) 3:20 PM) [facility] [id number] 20:20:00 Test Item Value Reference Range Interpretation Comments U Phencyclidine Scr (test Negative *NA*(05/26/19 code = U Phencyclidine 3:20 PM) Scr) [facility] [id number] 20:20:00 Test Item Value Reference Range Interpretation Comments UDS Note (test code = See Note (05/26/19 3:20 UDS Note) PM) [facility]2019-09-09 17:18:00 Test Item Value Reference Range Interpretation Comments Lactic Acid Lvl (test code = Lactic 1.6 0.5-2.2 Acid Lvl) [id number] 17:18:00 Test Item Value Reference Range Interpretation Comments ACT (TEG) Rapid (test code = ACT (TEG) 121 s 86-118 Rapid) [id number] 17:18:00 Test Item Value Reference Range Interpretation Comments Split Point Rapid (test code = Split 0.7 min Point Rapid) [id number] 17:18:00 Test Item Value Reference Range Interpretation Comments R-time Rapid (test code = R-time 0.8 min 0.4-0.7 Rapid) [id number] 17:18:00 Test Item Value Reference Range Interpretation Comments K-time Rapid (test code = K-time 1.3 min 0.6-2.3 Rapid) [id number] 17:18:00 Test Item Value Reference Range Interpretation Comments Angle Rapid (test code = Angle 74 degrees 64-80 Rapid) [id number] 17:18:00 Test Item Value Reference Range Interpretation Comments Max Amplitude Rapid (test code = Max 73 mm 52-71 Amplitude Rapid) [facility]in[id number] 17:18:00 Test Item Value Reference Range Interpretation Comments G-value Rapid (test code = G-value 13.4 5.0-11.6 Rapid) [id number] 17:18:00 Test Item Value Reference Range Interpretation Comments Estimated % Lysis Rapid 0.1 See_Comment [Au tomated message] The (test code = Estimated syste m which generated % Lysis Rapid) this result t ransmitted reference range : <=7.5. The reference r maría was not used to int erpret this result as normal/abnormal . [id number] 17:18:00 Test Item Value Reference Range Interpretation Comments Eosinophils (test code = 0.2 See_Comment [A utomated message] The Eosinophils) system which ge nerated this result tra nsmitted reference range : <=4.0. The reference r maría was not used to int erpret this result as normal/abnormal . [id number] 17:18:00 Test Item Value Reference Range Interpretation Comments Basophils # (test code 0.1 See_Comment [Aut omated message] The = Basophils #) system which generated this result tra nsmitted reference range : <=0.2. The reference r maría was not used to int erpret this result as normal/abnormal . [place] [id number] 17:18:00 Test Item Value Reference Range Interpretation Comments Ethanol Lvl (test code = Ethanol <3.0 mg/dL Lvl) [place] [id number] 17:18:00 Test Item Value Reference Range Interpretation Comments Etoh (%) (test code = Etoh (%)) <0.003 % [facility]2019-09-09 17:18:00 Test Item Value Reference Range Interpretation Comments Lactic Acid Lvl (test code = Lactic 1.6 0.5-2.2 Acid Lvl) [id number] 17:18:00 Test Item Value Reference Range Interpretation Comments ACT (TEG) Rapid (test code = ACT (TEG) 121 s 86-118 Rapid) [id number] 17:18:00 Test Item Value Reference Range Interpretation Comments Split Point Rapid (test code = Split 0.7 min Point Rapid) [id number] 17:18:00 Test Item Value Reference Range Interpretation Comments R-time Rapid (test code = R-time 0.8 min 0.4-0.7 Rapid) [id number] 17:18:00 Test Item Value Reference Range Interpretation Comments K-time Rapid (test code = K-time 1.3 min 0.6-2.3 Rapid) [facility]inbu[id number] 17:18:00 Test Item Value Reference Range Interpretation Comments Angle Rapid (test code = Angle 74 degrees 64-80 Rapid) [id number] 17:18:00 Test Item Value Reference Range Interpretation Comments Max Amplitude Rapid (test code = Max 73 mm 52-71 Amplitude Rapid) [id number] 17:18:00 Test Item Value Reference Range Interpretation Comments G-value Rapid (test code = G-value 13.4 5.0-11.6 Rapid) [facility]burgEepdzevYAAZIXSTSZ6987-08-29 17:18:00 Test Item Value Reference Range Interpretation Comments Estimated % Lysis Rapid 0.1 See_Comment [Au tomated message] The (test code = Estimated syste m which generated % Lysis Rapid) this result t ransmitted reference range : <=7.5. The reference r maría was not used to int erpret this result as normal/abnormal . [id number] 17:18:00 Test Item Value Reference Range Interpretation Comments Eosinophils (test code = 0.2 See_Comment [A utomated message] The Eosinophils) system which ge nerated this result tra nsmitted reference range : <=4.0. The reference r maría was not used to int erpret this result as normal/abnormal . [facility]bu[id number] 17:18:00 Test Item Value Reference Range Interpretation Comments Basophils # (test code 0.1 See_Comment [Aut omated message] The = Basophils #) system which generated this result tra nsmitted reference range : <=0.2. The reference r maría was not used to int erpret this result as normal/abnormal . [place] [id number] 17:18:00 Test Item Value Reference Range Interpretation Comments Ethanol Lvl (test code = Ethanol <3.0 mg/dL Lvl) [place] 19843019-09-09 17:18:00 Test Item Value Reference Range Interpretation Comments Etoh (%) (test code = Etoh (%)) <0.003 % [facility]2019-09-09 17:18:00 Test Item Value Reference Range Interpretation Comments Lactic Acid Lvl (test code = Lactic 1.6 0.5-2.2 Acid Lvl) [id number] 17:18:00 Test Item Value Reference Range Interpretation Comments ACT (TEG) Rapid (test code = ACT (TEG) 121 s 86-118 Rapid) [facility]burgAmoapkvSAOHSJCDSB2890-18-78 17:18:00 Test Item Value Reference Range Interpretation Comments Split Point Rapid (test code = Split 0.7 min Point Rapid) [facility]burgUrykfidUBNQWQFNPX6296-87-00 17:18:00 Test Item Value Reference Range Interpretation Comments R-time Rapid (test code = R-time 0.8 min 0.4-0.7 Rapid) [facility]burgOyneouvZUPQZPQKRJ0474-28-52 17:18:00 Test Item Value Reference Range Interpretation Comments K-time Rapid (test code = K-time 1.3 min 0.6-2.3 Rapid) [facility]burgNplvpfnZHLGKDGFCD4882-94-99 17:18:00 Test Item Value Reference Range Interpretation Comments Angle Rapid (test code = Angle 74 degrees 64-80 Rapid) [facility]bu[id number] 17:18:00 Test Item Value Reference Range Interpretation Comments Max Amplitude Rapid (test code = Max 73 mm 52-71 Amplitude Rapid) [id number] 17:18:00 Test Item Value Reference Range Interpretation Comments G-value Rapid (test code = G-value 13.4 5.0-11.6 Rapid) [facility]bu[id number] 17:18:00 Test Item Value Reference Range Interpretation Comments Estimated % Lysis Rapid 0.1 See_Comment [Au tomated message] The (test code = Estimated syste m which generated % Lysis Rapid) this result t ransmitted reference range : <=7.5. The reference r maría was not used to int erpret this result as normal/abnormal . [facility]burgObscpaqTQVWMHUPIO1769-09-78 17:18:00 Test Item Value Reference Range Interpretation Comments Eosinophils (test code = 0.2 See_Comment [A utomated message] The Eosinophils) system which ge nerated this result tra nsmitted reference range : <=4.0. The reference r maría was not used to int erpret this result as normal/abnormal . [facility]bu[id number] 17:18:00 Test Item Value Reference Range Interpretation Comments Basophils # (test code 0.1 See_Comment [Aut omated message] The = Basophils #) system which generated this result tra nsmitted reference range : <=0.2. The reference r maría was not used to int erpret this result as normal/abnormal . [facility]WrasidgIVAFNCONET8230-56-02 17:18:00 Test Item Value Reference Range Interpretation Comments Ethanol Lvl (test code = Ethanol <3.0 mg/dL Lvl) [facility]VtlyhyiRCZKRCLPDL9264-07-74 17:18:00 Test Item Value Reference Range Interpretation Comments Etoh (%) (test code = Etoh (%)) <0.003 % [facility]2019-09-09 17:18:00 Test Item Value Reference Range Interpretation Comments Lactic Acid Lvl (test code = Lactic 1.6 0.5-2.2 Acid Lvl) [facility]burgKrfhdlzVFETAMRDDA6204-07-23 17:18:00 Test Item Value Reference Range Interpretation Comments ACT (TEG) Rapid (test code = ACT (TEG) 121 s 86-118 Rapid) [facility]bu[id number] 17:18:00 Test Item Value Reference Range Interpretation Comments Split Point Rapid (test code = Split 0.7 min Point Rapid) [facility]burgPmaqoopVZIUZHNHWA7024-62-16 17:18:00 Test Item Value Reference Range Interpretation Comments R-time Rapid (test code = R-time 0.8 min 0.4-0.7 Rapid) [facility]burgCdufzykQOWOHYTZRG1764-89-52 17:18:00 Test Item Value Reference Range Interpretation Comments K-time Rapid (test code = K-time 1.3 min 0.6-2.3 Rapid) [facility]burgFbdimcxBCZENSIIUD8498-73-11 17:18:00 Test Item Value Reference Range Interpretation Comments Angle Rapid (test code = Angle 74 degrees 64-80 Rapid) [facility]burgXloxkbvOVREGEGLPZ1076-48-38 17:18:00 Test Item Value Reference Range Interpretation Comments Max Amplitude Rapid (test code = Max 73 mm 52-71 Amplitude Rapid) [facility]burgTpxabfjVGQXHHEYSD7872-16-68 17:18:00 Test Item Value Reference Range Interpretation Comments G-value Rapid (test code = G-value 13.4 5.0-11.6 Rapid) [facility]burgVlzoxrjZDLGPYRLKK9831-19-74 17:18:00 Test Item Value Reference Range Interpretation Comments Estimated % Lysis Rapid 0.1 See_Comment [Au tomated message] The (test code = Estimated syste m which generated % Lysis Rapid) this result t ransmitted reference range : <=7.5. The reference r maría was not used to int erpret this result as normal/abnormal . [facility]burgGpvsvymCTRGHIGWWJ6947-34-42 17:18:00 Test Item Value Reference Range Interpretation Comments Eosinophils (test code = 0.2 See_Comment [A utomated message] The Eosinophils) system which ge nerated this result tra nsmitted reference range : <=4.0. The reference r maría was not used to int erpret this result as normal/abnormal . [facility]bu[id number] 17:18:00 Test Item Value Reference Range Interpretation Comments Basophils # (test code 0.1 See_Comment [Aut omated message] The = Basophils #) system which generated this result tra nsmitted reference range : <=0.2. The reference r maría was not used to int erpret this result as normal/abnormal . [place] 19843019-09-09 17:18:00 Test Item Value Reference Range Interpretation Comments Ethanol Lvl (test code = Ethanol <3.0 mg/dL Lvl) [place] 19843019-09-09 17:18:00 Test Item Value Reference Range Interpretation Comments Etoh (%) (test code = Etoh (%)) <0.003 % [facility]2019-09-09 17:18:00 Test Item Value Reference Range Interpretation Comments Lactic Acid Lvl (test code = Lactic 1.6 0.5-2.2 Acid Lvl) [facility]burgJqhlwbxUYFBDGNFTV7941-54-21 17:18:00 Test Item Value Reference Range Interpretation Comments ACT (TEG) Rapid (test code = ACT (TEG) 121 s 86-118 Rapid) [facility]burgOnfkwqpAGALKFLBBX8512-03-83 17:18:00 Test Item Value Reference Range Interpretation Comments Split Point Rapid (test code = Split 0.7 min Point Rapid) [facility]burgFxcfvxyDSBBPGUCTS4886-34-03 17:18:00 Test Item Value Reference Range Interpretation Comments R-time Rapid (test code = R-time 0.8 min 0.4-0.7 Rapid) [facility]burgQorycjaPZJDQPZUXN5287-04-93 17:18:00 Test Item Value Reference Range Interpretation Comments K-time Rapid (test code = K-time 1.3 min 0.6-2.3 Rapid) [facility]burgPrjklyyOAQHNMJJDT6155-82-53 17:18:00 Test Item Value Reference Range Interpretation Comments Angle Rapid (test code = Angle 74 degrees 64-80 Rapid) [facility]burgJtrvunjSXAWKUKIRU5327-40-19 17:18:00 Test Item Value Reference Range Interpretation Comments Max Amplitude Rapid (test code = Max 73 mm 52-71 Amplitude Rapid) [facility]inburgZruhbuuDTUOGEIQNF2895-46-73 17:18:00 Test Item Value Reference Range Interpretation Comments G-value Rapid (test code = G-value 13.4 5.0-11.6 Rapid) [facility]burgIerqcpzUXAABFVPTB2334-68-13 17:18:00 Test Item Value Reference Range Interpretation Comments Estimated % Lysis Rapid 0.1 See_Comment [Au tomated message] The (test code = Estimated syste m which generated % Lysis Rapid) this result t ransmitted reference range : <=7.5. The reference r maría was not used to int erpret this result as normal/abnormal . [facility]inbu[id number] 17:18:00 Test Item Value Reference Range Interpretation Comments Eosinophils (test code = 0.2 See_Comment [A utomated message] The Eosinophils) system which ge nerated this result tra nsmitted reference range : <=4.0. The reference r maría was not used to int erpret this result as normal/abnormal . [facility]burgNuadzqyLJWPRIUFHX6624-14-25 17:18:00 Test Item Value Reference Range Interpretation Comments Basophils # (test code 0.1 See_Comment [Aut omated message] The = Basophils #) system which generated this result tra nsmitted reference range : <=0.2. The reference r maría was not used to int erpret this result as normal/abnormal . [place] 19843019-09-09 17:18:00 Test Item Value Reference Range Interpretation Comments Ethanol Lvl (test code = Ethanol <3.0 mg/dL Lvl) [place] 19843019-09-09 17:18:00 Test Item Value Reference Range Interpretation Comments Etoh (%) (test code = Etoh (%)) <0.003 % [facility]2019-09-09 17:18:00 Test Item Value Reference Range Interpretation Comments Lactic Acid Lvl (test code = Lactic 1.6 0.5-2.2 Acid Lvl) [facility]bu[id number] 17:18:00 Test Item Value Reference Range Interpretation Comments ACT (TEG) Rapid (test code = ACT (TEG) 121 s 86-118 Rapid) [id number] 17:18:00 Test Item Value Reference Range Interpretation Comments Split Point Rapid (test code = Split 0.7 min Point Rapid) [id number] 17:18:00 Test Item Value Reference Range Interpretation Comments R-time Rapid (test code = R-time 0.8 min 0.4-0.7 Rapid) [id number] 17:18:00 Test Item Value Reference Range Interpretation Comments K-time Rapid (test code = K-time 1.3 min 0.6-2.3 Rapid) [id number] 17:18:00 Test Item Value Reference Range Interpretation Comments Angle Rapid (test code = Angle 74 degrees 64-80 Rapid) [id number] 17:18:00 Test Item Value Reference Range Interpretation Comments Max Amplitude Rapid (test code = Max 73 mm 52-71 Amplitude Rapid) [id number] 17:18:00 Test Item Value Reference Range Interpretation Comments G-value Rapid (test code = G-value 13.4 5.0-11.6 Rapid) [id number] 17:18:00 Test Item Value Reference Range Interpretation Comments Estimated % Lysis Rapid 0.1 See_Comment [Au tomated message] The (test code = Estimated syste m which generated % Lysis Rapid) this result t ransmitted reference range : <=7.5. The reference r maría was not used to int erpret this result as normal/abnormal . [id number] 17:18:00 Test Item Value Reference Range Interpretation Comments Eosinophils (test code = 0.2 See_Comment [A utomated message] The Eosinophils) system which ge nerated this result tra nsmitted reference range : <=4.0. The reference r maría was not used to int erpret this result as normal/abnormal . [id number] 17:18:00 Test Item Value Reference Range Interpretation Comments Basophils # (test code 0.1 See_Comment [Aut omated message] The = Basophils #) system which generated this result tra nsmitted reference range : <=0.2. The reference r maría was not used to int erpret this result as normal/abnormal . [id number] 17:18:00 Test Item Value Reference Range Interpretation Comments Ethanol Lvl (test code = Ethanol <3.0 mg/dL Lvl) [id number] 17:18:00 Test Item Value Reference Range Interpretation Comments Etoh (%) (test code = Etoh (%)) <0.003 % [facility] [id number] 17:12:00 Test Item Value Reference Range Interpretation Comments ABO/Rh (test code = ABO/Rh) O POS [facility] [id number] 17:12:00 Test Item Value Reference Range Interpretation Comments Antibody Scrn (test Negative (05/26/19 12:12 code = Antibody Scrn) PM) [facility] [id number] 17:12:00 Test Item Value Reference Range Interpretation Comments ABO/Rh (test code = ABO/Rh) O POS [facility] [id number] 17:12:00 Test Item Value Reference Range Interpretation Comments Antibody Scrn (test Negative (05/26/19 12:12 code = Antibody Scrn) PM) [facility] [id number] 17:12:00 Test Item Value Reference Range Interpretation Comments ABO/Rh (test code = ABO/Rh) O [facility] [id number] 17:12:00 Test Item Value Reference Range Interpretation Comments Antibody Scrn (test Negative (05/26/19 12:12 code = Antibody Scrn) PM) [facility] [id number] 17:12:00 Test Item Value Reference Range Interpretation Comments ABO/Rh (test code = ABO/Rh) O POS [facility] [id number] 17:12:00 Test Item Value Reference Range Interpretation Comments Antibody Scrn (test Negative (05/26/19 12:12 code = Antibody Scrn) PM) [facility] [id number] 17:12:00 Test Item Value Reference Range Interpretation Comments ABO/Rh (test code = ABO/Rh) O [facility] [id number] 17:12:00 Test Item Value Reference Range Interpretation Comments Antibody Scrn (test Negative (05/26/19 12:12 code = Antibody Scrn) PM) [facility] [id number] 17:12:00 Test Item Value Reference Range Interpretation Comments ABO/Rh (test code = ABO/Rh) O POS [facility] [id number] 17:12:00 Test Item Value Reference Range Interpretation Comments Antibody Scrn (test Negative (05/26/19 12:12 code = Antibody Scrn) PM) [facility]
[2023-01-28] MEDS ORDERED: ASPIRIN 81 MG CHEWABLE TABLET ONE (14:32)
--- NOTE | 2023-01-28 14:43 | EKG ---
Test Date: 2023-01-28 Test Time: 14:15:43 Inspector Government Property: IRLANDA MEASUREMENT RESULTS: Intervals: Rate: 55 AK: QRSD: 80 QT: 474 QTc: 453 Harrells: P: AK: QRS: 42 T: 75 INTERPRETIVE STATEMENTS: Junctional rhythm with premature supraventricular complexes in a pattern of bigeminy Nonspecific ST abnormality Abnormal ECG Compared to ECG 12/17/2022 09:27:03 Atrial premature complex(es) now present Junctional rhythm now present Sinus rhythm no longer present ST (T wave) deviation still present Electronically Signed On 01-28-23 14:42:38 CDT by Davy Flores
[2023-01-28 14:49] LABS: Absolute Lymphocytes (CBC) 1.1 K/uL (0.7-4.9); Hematocrit 34.3 % (36.0-45.0); Lymphocytes % 9.3 % (15.3-44.8); MCV 92.1 fL (80-100); RBC Red Blood Cell Count 3.73 M/uL (3.86-4.86)
[2023-01-28] MEDS ORDERED: METHYLPREDNISOLONE 125 MG INJ ONE (14:59)
[2023-01-28 15:06] LABS: Albumin 3.4 g/dL (3.4-5.0); Bilirubin Direct 0.3 mg/dL (0-0.2); Bilirubin Indirect, Calculated 0.5 mg/dL (0.2-0.8); Bilirubin Total 0.8 mg/dL (0.2-1.0); Magnesium 2.2 mg/dL (1.6-2.4); Potassium 4.5 mEq/L (3.5-5.1); Protein, Total 7.1 g/dL (6.4-8.2); Troponin High Sensitivity 39.3 pg/mL (<58.9)
--- NOTE | 2023-01-28 15:07 | RAD REPORT ---
EXAM DESCRIPTION: RAD - Chest Single View - 01/28/2023 2:58 pm CLINICAL HISTORY: SOB Chest pain. COMPARISON: Chest Single View dated 12/17/2022; Chest Pa And Lat (2 Views) dated 09/02/2022; Chest Sin gle View dated 04/09/2022; Chest Single View dated 04/08/2022 FINDINGS: Portable technique limits examination quality. Moderate bilateral pulmonary opacities are present compatible with pulmonary edema. The heart is mode rately enlarged in size. No displaced fractures. IMPRESSION: Moderate CHF.
[2023-01-28 15:23] LABS: Protime INR 1.02
[2023-01-28] MEDS ORDERED: FUROSEMIDE 20 MG/ 2ML VIAL ONE (15:44)
--- NOTE | 2023-01-28 16:56 | RAD REPORT ---
EXAM DESCRIPTION: CT - Chest For Pe Angio - 01/28/2023 4:45 pm CLINICAL HISTORY: Chest pain. PE COMPARISON: <Comparisons> TECHNIQUE: CT angiogram of the pulmonary arteries was performed with MIP. All CT scans are performed using dose optimization technique as appropriate and may include automated exposure control or mA/KV adjustment according to patient size. FINDINGS: No evidence of pulmonary thromboembolism. There is dilatation of the ascending thoracic aorta measuring up to 6 cm compatible with aneurysm. No acute dissection is present. Prominent diffuse osteopenia is noted. Atelectasis is present in the right lung base. No significant pericardial or pleural fluid. No concerning bony finding. IMPRESSION: No evidence of pulmonary thromboembolism. 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
[2023-01-28] MEDS ORDERED: ALBUTEROL 2.5 MG/3 ML NEB SOL ONE (17:33)
--- NOTE | 2023-01-28 18:07 | EDPHYS ---
Physician Documentation [facility] Name: Breanne Montes De Oca Age: 77 yrs Sex: Female : 1945 Arrival Date: 01/28/2023 Time: 13:46 Bed 4 Private MD: ED Physician Santana Mosher HPI: 01/28 14:49 This 77 yrs old Female presents to ER via Wheelchair with complaints of Shortness Of snw Breath. 14:49 The patient has shortness of breath at rest. Onset: The symptoms/episode began/occurred snw acutely. Duration: The symptoms are continuous. The patient's shortness of breath is aggravated by Weather. Associated signs and symptoms: The patient has no apparent associated signs or symptoms. Severity of symptoms: At their worst the symptoms were moderate. The patient has experienced similar episodes in the past, multiple times. It is unknown whether or not the patient has recently seen a physician. Sees Yelena Hernandez NP and Dr. Busch. Historical: - Allergies: 14:11 NKDA; aa5 - PMHx: 14:11 aortic aneurysm; Arthritis; Asthma; Bipolar disorder; Bronchitis; CHF; COPD; Home O2 3 aa5 L NC; Hypertension; Hypothyroidism; Osteoporosis; psoriasis; Urinary incontinence; - PSHx: 14:11 Appendectomy; Cholecystectomy; aa5 - Immunization history:: Adult Immunizations unknown. - Social history:: Smoking status: Patient/guardian denies using tobacco. - History obtained from: daughter. ROS: 14:47 Constitutional: Negative for fever, chills, and weight loss, Eyes: Negative for injury, snw pain, redness, and discharge, ENT: Negative for injury, pain, and discharge, Neck: Negative for injury, pain, and swelling, Cardiovascular: Negative for chest pain, palpitations, and edema, Abdomen/GI: Negative for abdominal pain, nausea, vomiting, diarrhea, and constipation, Back: Negative for injury and pain, : Negative for injury, bleeding, discharge, and swelling, MS/Extremity: Negative for injury and deformity, Skin: Negative for injury, rash, and discoloration, Neuro: Negative for headache, weakness, numbness, tingling, and seizure, Psych: Negative for depression, anxiety, suicide ideation, homicidal ideation, and hallucinations. 14:47 Respiratory: Positive for shortness of breath, at rest. Exam: 14:46 Constitutional: This is a well developed, well nourished patient who is awake, alert, snw and in no acute distress. Head/Face: Normocephalic, atraumatic. Eyes: Pupils equal round and reactive to light, extra-ocular motions intact. Lids and lashes normal. Conjunctiva and sclera are non-icteric and not injected. Cornea within normal limits. Periorbital areas with no swelling, redness, or edema. ENT: Nares patent. No nasal discharge, no septal abnormalities noted. Tympanic membranes are normal and external auditory canals are clear. Oropharynx with no redness, swelling, or masses, exudates, or evidence of obstruction, uvula midline. Mucous membranes moist. Neck: Trachea midline, no thyromegaly or masses palpated, and no cervical lymphadenopathy. Supple, full range of motion without nuchal rigidity, or vertebral point tenderness. No Meningismus. Chest/axilla: Normal chest wall appearance and motion. Nontender with no deformity. No lesions are appreciated. 14:46 Respiratory: Lungs have equal breath sounds bilaterally, clear to auscultation and percussion. No rales, rhonchi or wheezes noted. No increased work of breathing, no retractions or nasal flaring. Abdomen/GI: Soft, non-tender, with normal bowel sounds. No distension or tympany. No guarding or rebound. No evidence of tenderness throughout. Back: No spinal tenderness. No costovertebral tenderness. Full range of motion. Skin: Warm, dry with normal turgor. Normal color with no rashes, no lesions, and no evidence of cellulitis. MS/ Extremity: Pulses equal, no cyanosis. Neurovascular intact. Full, normal range of motion. Neuro: Awake and alert, GCS 15, oriented to person, place, time, and situation. Cranial nerves II-XII grossly intact. Motor strength 5/5 in all extremities. Sensory grossly intact. Cerebellar exam normal. Normal gait. Psych: Awake, alert, with orientation to person, place and time. Behavior, mood, and affect are within normal limits. 14:46 Cardiovascular: Rate: bradycardic, Rhythm: irregular, Heart sounds: murmur, systolic, Edema: 1+ edema to level of left ankle and right ankle. Vital Signs: 14:02 BP 172 / 52; Pulse 57; Resp 25 S; Temp 98.9(O); Pulse Ox 98% on 3 lpm NC; Weight 99.79 aa5 kg (R); Height 5 ft. 2 in. (R); 14:57 BP 164 / 46; Pulse 52; Resp 18; Pulse Ox 100% 3 lpm ; ld1 15:44 BP 151 / 53; Pulse 54; Resp 18; Pulse Ox 100% on R/A; ld1 16:54 BP 151 / 71; Pulse 60; Resp 18; Pulse Ox 100% on 3 lpm NC; ld1 17:54 BP 171 / 80; Pulse 67; Resp 20; Pulse Ox 99% on 3 lpm NC; eh3 14:02 Body Mass Index 40.24 (99.79 kg, 157.48 cm) aa5 MDM: 14:09 Patient medically screened. snw 15:29 Differential diagnosis: Anxiety Reaction asthma, CHF exacerbation, Chronic Obstructive snw Pulmonary Disease Myocardial Infarction pulmonary edema, Pulmonary Embolism. Antibiotic administration: Not indicated. Data reviewed:. I considered the following discharge prescriptions or medication management in the emergency department Medications were administered in the Emergency Department. See MAR. Counseling: I had a detailed discussion with the patient and/or guardian regarding: the historical points, exam findings, and any diagnostic results supporting the discharge/admit diagnosis, the presence of at least one elevated blood pressure reading (>120/80) during this emergency department visit, lab results, radiology results. ED course: will CT chest for PE as pt has elevated D-Dimer, shortness of breath, and hx of COPD, CHF, aortic aneurysm. 17:41 Management of patient was discussed with the following: Quality Control Operator: Dr. Busch, place snw pt on prednisone 20mg po BID x 5 days. F/u in office. Response to treatment: the patient's symptoms have mildly improved after treatment. 18:05 Discussion of test interpretation with radiology: I had a discussion with radiology snw regarding a test interpretation. ascending thoracic aneurysm is not acute, appears to have slowly increased in size over time. Follow up . 01/28 14:16 Order name: Basic Metabolic Panel; Complete Time: 15:12 snw 01/28 14:16 Order name: CBC with Diff; Complete Time: 14:53 snw 01/28 14:16 Order name: D-Dimer; Complete Time: 15:28 snw 01/28 14:16 Order name: LFT's; Complete Time: 15:12 01/28 14:16 Order name: Magnesium; Complete Time: 15:12 01/28 14:16 Order name: NT PRO-BNP; Complete Time: 15:12 01/28 14:16 Order name: PT-INR; Complete Time: 15:28 01/28 14:16 Order name: Troponin HS; Complete Time: 15:12 w 01/28 14:16 Order name: XRAY Chest (1 view); Complete Time: 15:12 w 01/28 15:29 Order name: CT Chest For PE Angio; Complete Time: 16:57 w 01/28 14:16 Order name: EKG; Complete Time: 14:17 01/28 14:16 Order name: Cardiac monitoring; Complete Time: 14:21 01/28 14:16 Order name: EKG - Nurse/Tech; Complete Time: 14:21 01/28 14:16 Order name: IV Saline Lock; Complete Time: 14:39 01/28 14:16 Order name: Labs collected and sent; Complete Time: 14:39 01/28 14:16 Order name: O2 Per Protocol; Complete Time: 14:21 01/28 14:16 Order name: O2 Sat Monitoring; Complete Time: 14:21 snw Administered Medications: 14:20 Drug: Aspirin PO Chewable Tablet 324 mg Route: PO; eh3 14:51 Follow up: Response: No adverse reaction eh3 14:57 Drug: MethylPrednisoLONE IVP 125 mg Route: IVP; Site: right upper arm; ld1 17:53 Follow up: Response: No adverse reaction eh3 15:48 Drug: Furosemide IVP 20 mg Route: IVP; Site: right upper arm; ld1 17:52 Follow up: Response: No adverse reaction eh3 17:29 Drug: Albuterol Inhalation 2.5 mg Route: Inhalation; ld1 17:52 Follow up: Response: No adverse reaction eh3 Disposition Summary: 01/28/23 18:07 Discharge Ordered Location: Home snw Condition: Stable snw Diagnosis - COPD/ Chronic obstructive pulmonary disease with (acute) exacerbation snw - Unspecified combined systolic (congestive) and diastolic (congestive) heart failure snw Followup: snw - With: Zeeshan Busch MD - When: 1 - 2 days - Reason: Recheck today's complaints, Continuance of care, Re-evaluation by your physician Discharge Instructions: - Discharge Summary Sheet snw - Thoracic Aortic Aneurysm snw - Heart Failure, Diagnosis snw - Chronic Obstructive Pulmonary Disease Exacerbation snw Forms: - Medication Reconciliation Form snw - Thank You Letter snw - Antibiotic Education snw - Prescription Opioid Use snw Prescriptions: - Augmentin 875-125 mg Oral Tablet - take 1 tablet by ORAL route every 12 hours for 10 days; 20 tablet; Refills: 0, snw Product Selection Permitted - Prednisone 20 mg Oral Tablet - take 1 tablet by ORAL route 2 times per day for 5 days; 10 tablet; Refills: 0, snw Product Selection Permitted Signatures: Dispatcher [employer] EDApoorva Nieves, SIDDHARTHA-C HOME CARE COMPANION-Csnw Malinda Yi RN RN aa5 Susan Fleming RN RN ld1 Cherie Amaral RN RN eh3
--- NOTE | 2023-01-28 18:07 | ER ---
Nurse's Notes [facility] Name: Breanne Montes De Oca Age: 77 yrs Sex: Female : 1945 Arrival Date: 01/28/2023 Time: 13:46 Bed 4 Private MD: Diagnosis: COPD/ Chronic obstructive pulmonary disease with (acute) exacerbation;Unspecified combined systolic (congestive) and diastolic (congestive) heart failure Presentation: 01/28 14:02 Chief complaint: Patient states: increased SOB x 2-3 days ago, pt states "it started aa5 with the rain and it got worse during the night". 14:02 Coronavirus screen: At this time, the client does not indicate any symptoms associated aa5 with coronavirus-19. Ebola Screen: Patient denies travel to an Ebola-affected area in the 21 days before illness onset. Initial Sepsis Screen: Does the patient meet any 2 criteria? No. Patient's initial sepsis screen is negative. Does the patient have a suspected source of infection? No. Patient's initial sepsis screen is negative. Risk Assessment: Do you want to hurt yourself or someone else? Patient reports no desire to harm self or others. Onset of symptoms was January 2023. 14:02 Acuity: FIOR 3 aa5 14:02 Method Of Arrival: Wheelchair aa5 Triage Assessment: 14:15 General: Appears in no apparent distress. uncomfortable. General: Behavior is eh3 cooperative, appropriate for age. Respiratory: Reports shortness of breath at rest labored breathing Onset: The symptoms/episode began/occurred yesterday, the patient has moderate shortness of breath. Historical: - Allergies: 14:11 NKDA; aa5 - PMHx: 14:11 aortic aneurysm; Arthritis; Asthma; Bipolar disorder; Bronchitis; CHF; COPD; Home O2 3 aa5 L NC; Hypertension; Hypothyroidism; Osteoporosis; psoriasis; Urinary incontinence; - PSHx: 14:11 Appendectomy; Cholecystectomy; aa5 - Immunization history:: Adult Immunizations unknown. - Social history:: Smoking status: Patient/guardian denies using tobacco. - History obtained from: daughter. Screenin:15 [facility] ED Fall Risk Assessment (Adult) Score/Fall Risk Level 0 - 2 = Low Risk. Abuse eh3 screen: Denies threats or abuse. Denies injuries from another. Nutritional screening: No deficits noted. Tuberculosis screening: No symptoms or risk factors identified. Assessment: 14:15 General: Appears in no apparent distress. uncomfortable, Behavior is cooperative, eh3 appropriate for age. Pain: Complains of pain in right arm and left arm. Neuro: Level of Consciousness is awake, alert, obeys commands, Oriented to person, place, time, situation. Cardiovascular: Reports shortness of breath, Capillary refill < 3 seconds Patient's skin is warm and dry. Rhythm is junctional rhythm. Respiratory: Airway is patent Respiratory effort is labored, shallow, Respiratory pattern is symmetrical, tachypnea. GI: Abdomen is round non-distended. : No signs and/or symptoms were reported regarding the genitourinary system. EENT: No signs and/or symptoms were reported regarding the EENT system. Derm: Skin is pink, warm \\T\\ dry. Musculoskeletal: Circulation, motion, and sensation intact. 14:15 Respiratory: Breath sounds are clear bilaterally. eh3 14:30 Reassessment: Patient is alert, oriented x 3, equal unlabored respirations, skin aa5 warm/dry/pink. Notified of wait time for lab results. Pt's family at bedside. . 15:15 Reassessment: Patient appears in no apparent distress at this time. Patient and/or 3 family updated on plan of care and expected duration. Pain level reassessed. Patient is alert, oriented x 3, equal unlabored respirations, skin warm/dry/pink. 15:58 Reassessment: Placed purewick to patient. ld1 16:15 Reassessment: Patient appears in no apparent distress at this time. Patient and/or eh3 family updated on plan of care and expected duration. Pain level reassessed. Patient is alert, oriented x 3, equal unlabored respirations, skin warm/dry/pink. 17:15 Reassessment: Patient appears in no apparent distress at this time. Patient and/or eh3 family updated on plan of care and expected duration. Pain level reassessed. Patient is alert, oriented x 3, equal unlabored respirations, skin warm/dry/pink. 18:15 Reassessment: Patient appears in no apparent distress at this time. Patient and/or eh3 family updated on plan of care and expected duration. Pain level reassessed. Patient is alert, oriented x 3, equal unlabored respirations, skin warm/dry/pink. Vital Signs: 14:02 BP 172 / 52; Pulse 57; Resp 25 S; Temp 98.9(O); Pulse Ox 98% on 3 lpm NC; Weight 99.79 aa5 kg (R); Height 5 ft. 2 in. (R); 14:57 BP 164 / 46; Pulse 52; Resp 18; Pulse Ox 100% 3 lpm ; ld1 15:44 BP 151 / 53; Pulse 54; Resp 18; Pulse Ox 100% on R/A; ld1 16:54 BP 151 / 71; Pulse 60; Resp 18; Pulse Ox 100% on 3 lpm NC; ld1 17:54 BP 171 / 80; Pulse 67; Resp 20; Pulse Ox 99% on 3 lpm NC; eh3 14:02 Body Mass Index 40.24 (99.79 kg, 157.48 cm) aa5 ED Course: 13:50 Patient arrived in ED. ts1 13:50 Apoorva Soriano FNP-C [facility] snw 13:50 Santana Mosher MD is Attending Physician. snw 14:02 Arm band placed on Patient placed in an exam room, on a stretcher. aa5 14:10 Oxygen administration via nasal cannula \\T\\ 3L/min. eh3 14:14 Triage completed. aa5 14:15 Cherie Amaral, RN is Primary Nurse. eh3 14:15 Patient has correct armband on for positive identification. Placed in gown. Bed in low eh3 position. Call light in reach. Side rails up X2. Adult w/ patient. Client placed on continuous cardiac and pulse oximetry monitoring. NIBP monitoring applied. Door closed. Noise minimized. Warm blanket given. 14:30 Initial lab(s) drawn, by me, sent to lab. Inserted saline lock: 22 gauge in right upper aa5 arm, using aseptic technique. Blood collected. 14:59 XRAY Chest (1 view) In Process Unspecified. EDMS 16:47 CT Chest For PE Angio In Process Unspecified. EDMS 18:06 Zeeshan Busch MD is Referral Physician. snw 18:33 No provider procedures requiring assistance completed. IV discontinued, intact, eh3 bleeding controlled, No redness/swelling at site. Pressure dressing applied. Administered Medications: 14:20 Drug: Aspirin PO Chewable Tablet 324 mg Route: PO; eh3 14:51 Follow up: Response: No adverse reaction eh3 14:57 Drug: MethylPrednisoLONE IVP 125 mg Route: IVP; Site: right upper arm; ld1 17:53 Follow up: Response: No adverse reaction eh3 15:48 Drug: Furosemide IVP 20 mg Route: IVP; Site: right upper arm; ld1 17:52 Follow up: Response: No adverse reaction eh3 17:29 Drug: Albuterol Inhalation 2.5 mg Route: Inhalation; ld1 17:52 Follow up: Response: No adverse reaction eh3 Medication: 18:34 VIS not applicable for this client. eh3 Outcome: 18:07 Discharge ordered by MD. snw 18:33 Discharged to home via wheelchair, with family. eh3 18:33 Condition: stable 18:33 Discharge instructions given to patient, family, Instructed on discharge instructions, follow up and referral plans. medication usage, Demonstrated understanding of instructions, follow-up care, medications, Prescriptions given X 2. 18:40 Patient left the ED. 3 Signatures: Dispatcher [employer] EDMS Apoorva Soriano, DOOR ASSEMBLER-C DOOR ASSEMBLER-Csnw Malinda Yi RN RN aa5 Susan Fleming RN RN ld1 Cherie Amaral, RIGOBERTO FRANKLIN eh3 Yesi Osei PAS PAS ts1 Corrections: (The following items were deleted from the chart) 14:22 14:21 Cherie Amaral, RIGOBERTO is Primary Nurse. 3 eh3 16:35 15:30 Reassessment: Patient appears in no apparent distress at this time. Patient eh3 and/or family updated on plan of care and expected duration. Pain level reassessed. Patient is alert, oriented x 3, equal unlabored respirations, skin warm/dry/pink. eh3 18:34 18:34 Respiratory: eh3 eh3 18:55 18:55 Patient left the ED. eh3 eh3
[2023-01-28 19:26] VITALS: TEMP 98.9
[2023-01-28 19:34] VITALS: BP 171/80; O2SAT 99
== END 2023-01-28 18:55 | disposition home or self-care (01) ==
LOC: ER 13:46
DX: J44.1 Chronic obstructive pulmonary disease with (acute) exacerbation (principal); I50.40 Unspecified combined systolic (congestive) and diastolic (congestive) heart failure; I10 Essential (primary) hypertension; Z99.81 Dependence on supplemental oxygen
CPT/HCPCS: 93005; 85025; 80048; 36415; 83735; 85610; 85379; 80076; 84484; 83880; 71275; 71045; 96375; 96374; 99285; Q9967; J1940; J7613; J2930

== ENCOUNTER 2023-04-17 05:25 | Inpatient (IN) | payer OTHER ==
--- OUTSIDE RECORDS SUMMARY | 2023-04-17 05:56 | XMS REPORT | Continuity of Care Document ---
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 00 MEDICATION WASTE Product Size: 40 mg Product Wasted: ___ mg Lasix 2018-09 No Notes: [facility] 2-30 (Same as: l 15:00: Lasix) January cause GI upset. Give with food or milk. Losartan 2018-09 No Notes: [facility] 2-30 (Same as: l 15:00: Cozaar) [place] Docusate 2018-09 No Notes: [facility] Sodium 100 2-30 (Same as: l MG Oral 15:00: Colace) [place] Capsule 00 (Do Not [Colace] Crush) Keppra 2018-09 No Notes: [facility] 2-30 (Same l 15:00: as:Keppra) [place] 00 Neurontin 2018-09 No Notes: Memori a 2-30 (Same as: l 15:00: Neurontin) [place] Saline 2018-09 No Notes: [facility] Flush 0.9% 2-30 preservati l 15:00: ve free. [place] Furosemide 2018-09 No Notes: Memor ia 2-30 [...] a 2-30 (Same as: l 15:00: Neurontin) [place] 00 Saline 2018-09 No Notes: [facility] Flush 0.9% 2-30 preservati l 15:00: ve free. [place] Furosemide 2018-09 No Notes: Mem[facility] ia 2-30 (Same as: l 15:00: Lasix) [place] MEDICATION WASTE Product Size: 40 mg Product [...] a 2-30 (Same as: l 15:00: Neurontin) [place] Saline 2018-09 No Notes: [facility] Flush 0.9% 2-30 preservati l 15:00: ve free. [place] Furosemide 2018-09 No Notes: Mem[facility] ia 2-30 (Same as: l 15:00: Lasix) Arash MEDICATION WASTE Product Size: 40 mg Product Wasted: ___ mg Lasix 2018-09 No Notes: [facility] 2-30 (Same as: l 15:00: Lasix) January cause GI upset. Give with food or milk. Losartan 2018-09 No Notes: [facility] 2-30 (Same as: l 15:00: Cozaar) [place] 00 Docusate 2018-09 No Notes: [facility] Sodium 100 2-30 (Same as: l MG Oral 15:00: Colace) [place] Capsule 00 (Do Not [Colace] Crush) Keppra 2018-09 No Notes: [facility] 2-30 (Same l 15:00: as:Keppra) [place] 00 Neurontin 2018-09 No Notes: Memori a 2-30 (Same as: l 15:00: Neurontin) [place] 00 Saline 2018-09 No Notes: [facility] Flush 0.9% 2-30 preservati l 15:00: ve free. [place] Furosemide 2018-09 No Notes: Memor ia 2-30 [...] (Same as: l MG Oral 15:00: Colace) [place] Capsule 00 (Do Not [Colace] Crush) Keppra 2018-09 No Notes: [facility] 2-30 (Same l 15:00: as:Keppra) [place] Neurontin 2018-09 No Notes: Memori a 2-30 (Same as: l 15:00: Neurontin) [place] Saline 2018-09 No Notes: [facility] Flush 0.9% 2-30 preservati l 15:00: ve free. [place] Furosemide 2018-09 No Notes: Memor ia 2-30 [...] a 2-30 (Same as: l 15:00: Neurontin) [place] 00 Saline 2018-09 No Notes: [facility] Flush 0.9% 2-30 preservati l 15:00: ve free. [place] 00 Furosemide 2018-09 No Notes: Mem[facility] ia 2-30 (Same as: l 15:00: Lasix) [place] 00 MEDICATION WASTE Product Size: 40 mg Product Wasted: ___ mg Protonix 2018-09 No Notes: [facility] 2-30 Tablet l 13:30: should not Arash 00 be chewed or crushed. (Same as: Protonix) Protonix 2018-09 No Notes: [facility] 2-30 Tablet l 13:30: should not [place]ash 00 be chewed or crushed. (Same as: Protonix) Protonix 2018-09 No Notes: [facility] 2-30 Tablet l 13:30: should not [place] 00 be chewed or crushed. (Same as: Protonix) Protonix 2018-09 No Notes: [facility] 2-30 Tablet l 13:30: should not [place]ash 00 be chewed or crushed. (Same as: Protonix) Protonix 2018-09 No Notes: [facility] 2-30 Tablet l 13:30: should not [place] 00 be chewed or crushed. (Same as: Protonix) Protonix 2018-09 No Notes: [facility] 2-30 Tablet l 13:30: should not [place]ash 00 be chewed or crushed. (Same as: Protonix) Protonix 2018-09 No Notes: [facility] 2-30 Tablet l 13:30: should not [place] 00 be chewed or crushed. (Same as: [...] a 2-30 Take 1 l 12:30: hour [place] 00 before or 2 hours after meal; Enteral feeds may interefere with the absorption of this medication . (Same as:Levothr oid, Synthroid) Synthroid 2018-09 No Notes: Memori a 2-30 Take 1 l 12:30: hour [place] 00 before or 2 hours after meal; Enteral feeds may interefere with the absorption of this medication . (Same as:Levothr oid, Synthroid) Synthroid 2018-09 No Notes: [facility] a 2-30 Take 1 l 12:30: hour [place] 00 before or 2 hours after meal; [...] As: l water 10 mL 10:00: Rocephin). [place] 00 Use with 100 mL NS and infuse over 30 min MEDICATION WASTE Product Size: 1000 mg Product Wasted: ___ mg Rocephin + 2018-09 No Notes: [facility] sterile 2-30 (Same As: l water 10 mL 10:00: Rocephin). [place] 00 Use with 100 mL NS and [...] As: l water 10 mL 10:00: Rocephin). [place] 00 Use with 100 mL NS and infuse over 30 min MEDICATION WASTE Product Size: 1000 mg Product Wasted: ___ mg Rocephin + 2018-09 No Notes: [facility] sterile 2-30 (Same As: l water 10 mL 10:00: Rocephin). [place] 00 Use with 100 mL NS and infuse over 30 min MEDICATION WASTE Product Size: 1000 mg Product Wasted: ___ mg Rocephin + 2018-09 No Notes: [facility] ia sterile 2-30 (Same As: l water 10 mL 10:00: Rocephin). [place] 00 Use with 100 mL NS and infuse over 30 min MEDICATION WASTE Product Size: 1000 mg Product Wasted: ___ mg Fentanyl 2018-09 No Notes: [facility] 2-30 (Same as: l 09:03: Sublimaze) [place] 00 Preservati ve free. Fentanyl 2018-09 No [...] Memoria 2-30 (Same as: l 09:03: Sublimaze) [place] 00 Preservati ve free. Fentanyl 2018-09 No Notes: [facility] 2-30 (Same as: l 09:03: Sublimaze) [place] 00 Preservati ve free. Fentanyl 2018-09 No Notes: [facility] 2-30 (Same as: l 09:03: Sublimaze) [place] 00 Preservati ve free. Pulmicort 2018-09 No Notes: Memori a Respules 2-30 (Same As: l 07:42: Pulmicort) [place] Pulmicort 2018-09 No Notes: Mem[facility] a Respules 2-30 (Same As: l 07:42: Pulmicort) [place] Pulmicort 2018-09 No Notes: Memori a Respules 2-30 (Same As: l 07:42: Pulmicort) [place] Pulmicort 2018-09 No Notes: Mem[facility] a Respules 2-30 (Same As: l 07:42: Pulmicort) [place] Pulmicort 2018-09 No Notes: Mem[facility] a Respules 2-30 (Same As: l 07:42: Pulmicort) [place] Pulmicort 2018-09 No Notes: Memori a Respules 2-30 (Same As: l 07:42: Pulmicort) [place] Pulmicort 2018-09 No Notes: Memori a Respules 2-30 (Same As: l 07:42: Pulmicort) [place] Pulmicort 2018-09 No Notes: [facility] a Respules 2-30 (Same As: l 07:42: Pulmicort) [place] 00 Azithromyci 2018-09 No Notes: Samson jere n 2-30 (Same As: l 07:35: Zithromax [place] 00 IV) Azithromyci 2018-09 No Notes: Samson jere n 2-30 (Same As: l 07:35: Zithromax [place] 00 IV) Azithromyci 2018-09 No Notes: Samson jere n 2-30 (Same As: l 07:35: Zithromax [place] 00 IV) Azithromyci 2018-09 No Notes: Samson jere n 2-30 (Same As: l 07:35: Zithromax [place] 00 IV) Azithromyci 2018-09 No Notes: Samson jere n 2-30 (Same As: l 07:35: Zithromax [place] 00 IV) Azithromyci 2018-09 No Notes: Samson jere n 2-30 (Same As: l 07:35: Zithromax [place] 00 IV) Azithromyci 2018-09 No Notes: Samson jere n 2-30 (Same As: l 07:35: Zithromax [place] 00 IV) Azithromyci 2018-09 No Notes: Samson jere n 2-30 (Same As: l 07:35: Zithromax [place] 00 IV) Saline 2018-09 No Notes: [facility] Flush 0.9% 2-30 preservati l 07:28: ve free. [place] Saline 2018-09 No Notes: [facility] Flush 0.9% 2-30 preservati l 07:28: ve free. [place] Saline 2018-09 No Notes: [facility] Flush 0.9% 2-30 preservati l 07:28: ve free. [place] Saline 2018-09 No Notes: [facility] Flush 0.9% 2-30 preservati l 07:28: ve free. [place]ash Saline 2018-09 No Notes: [facility] Flush 0.9% 2-30 preservati l 07:28: ve free. [place] Saline 2018-09 No Notes: [facility] Flush 0.9% 2-30 preservati l 07:28: ve free. [place] 00 Saline 2018-09 No Notes: [facility] Flush 0.9% 2-30 preservati l 07:28: ve free. Saline 2018-09 No Notes: [facility] Flush 0.9% 2-30 preservati l 07:28: ve free. Azithromyci 2018-09 No 500 mg, Mem oria n 2-30 Route: PO, l 07:00: [id number], Dosing Weight 115.6, kg, Start date: 09/15/19 1:00:00 OVERCOILER, Duration: 3 day, Stop date: 09/17/19 1:00:00 OVERCOILER, ABX Indication : Non-PNA Respirator y Tract Infection Ceftriaxone 2018-09 No 1 gm, Memor ia 2-30 Route: l 07:00: IVP, [id number], Dosing Weight 115.6, kg, Start date: 09/15/19 1:00:00 OVERCOILER, Duration: 7 day, Stop date: 09/21/19 1:00:00 OVERCOILER, ABX Indication : Pneumonia Rocephin + 2018-09 No Notes: [facility] ia sterile 2-30 (Same As: l water 10 mL 07:00: Rocephin). Use with 100 mL NS and infuse over 30 min MEDICATION WASTE Product Size: 1000 mg Product Wasted: ___ mg Azithromyci 2018-09 No 500 mg, Mem oria n 2-30 Route: PO, l 07:00: [id number], Dosing Weight 115.6, kg, Start date: 09/15/19 1:00:00 OVERCOILER, Duration: 3 day, Stop date: 09/17/19 1:00:00 OVERCOILER, ABX Indication : Non-PNA Respirator y Tract Infection Ceftriaxone 2018-09 No 1 gm, Mem[facility] ia 2-30 Route: l 07:00: IVP, [id number], Dosing Weight 115.6, kg, Start date: 09/15/19 1:00:00 OVERCOILER, Duration: 7 day, Stop date: 09/21/19 1:00:00 OVERCOILER, ABX Indication : Pneumonia Rocephin + 2018-09 No Notes: [facility] ia sterile 2-30 (Same As: l water 10 mL 07:00: Rocephin). Use with 100 mL NS and infuse over 30 min MEDICATION WASTE Product Size: 1000 mg Product Wasted: ___ mg Azithromyci 2018-09 No 500 mg, Mem oria n 2-30 Route: PO, l 07:00: [id number], [place] 00 Dosing Weight 115.6, kg, Start date: 09/15/19 1:00:00 OVERCOILER, Duration: 3 day, Stop date: 09/17/19 1:00:00 OVERCOILER, ABX Indication : Non-PNA Respirator y Tract Infection Ceftriaxone 2018-09 No 1 gm, [facility] ia 2-30 Route: l 07:00: IVP, [id number], Dosing Weight 115.6, kg, Start date: 09/15/19 1:00:00 OVERCOILER, Duration: 7 day, Stop date: 09/21/19 1:00:00 OVERCOILER, ABX Indication : Pneumonia Rocephin + 2018-09 No Notes: [facility] ia sterile 2-30 (Same As: l water 10 mL 07:00: Rocephin). Use with 100 mL NS and infuse over 30 min MEDICATION WASTE Product Size: 1000 mg Product Wasted: ___ mg Azithromyci 2018-09 No 500 mg, Mem oria n 2-30 Route: PO, l 07:00: [id number], Dosing Weight 115.6, kg, Start date: 09/15/19 1:00:00 OVERCOILER, Duration: 3 day, Stop date: 09/17/19 1:00:00 OVERCOILER, ABX Indication : Non-PNA Respirator y Tract Infection Ceftriaxone 2018-09 No 1 gm, Mem[facility] ia 2-30 Route: l 07:00: IVP, [id number], Dosing Weight 115.6, kg, Start date: 09/15/19 1:00:00 OVERCOILER, Duration: 7 day, Stop date: 09/21/19 1:00:00 OVERCOILER, ABX Indication : Pneumonia Rocephin + 2018-09 No Notes: [facility] sterile 2-30 (Same As: l water 10 mL 07:00: Rocephin). [place] 00 Use with 100 mL NS and infuse over 30 min MEDICATION WASTE Product Size: 1000 mg Product Wasted: ___ mg Azithromyci 2018- No 500 mg, Mem oria n 2-30 Route: PO, l 07:00: [id number], [place] 00 Dosing Weight 115.6, kg, Start date: 09/15/19 1:00:00 OVERCOILER, Duration: 3 day, Stop date: 09/17/19 1:00:00 OVERCOILER, ABX Indication : Non-PNA Respirator y Tract Infection Ceftriaxone 2018-09 No 1 gm, [facility] 2-30 Route: l 07:00: IVP, [id number], Dosing Weight 115.6, kg, Start date: 09/15/19 1:00:00 OVERCOILER, Duration: 7 day, Stop date: 09/21/19 1:00:00 OVERCOILER, ABX Indication : Pneumonia Rocephin + 2018-09 No Notes: [facility] sterile 2-30 (Same As: l water 10 mL 07:00: Rocephin). [place] 00 Use with 100 mL NS and infuse over 30 min MEDICATION WASTE Product Size: 1000 mg Product Wasted: ___ mg Azithromyci 2018- No 500 mg, Mem oria n 2-30 Route: PO, l 07:00: [id number], Dosing Weight 115.6, kg, Start date: 09/15/19 1:00:00 OVERCOILER, Duration: 3 day, Stop date: 09/17/19 1:00:00 OVERCOILER, ABX Indication : Non-PNA Respirator y Tract Infection Ceftriaxone 2018-09 No 1 gm, [facility] ia 2-30 Route: l 07:00: IVP, [id number], Dosing Weight 115.6, kg, Start date: 09/15/19 1:00:00 OVERCOILER, Duration: 7 day, Stop date: 09/21/19 1:00:00 OVERCOILER, ABX Indication : Pneumonia Rocephin + 2018-09 No Notes: [facility] ia sterile 2-30 (Same As: l water 10 mL 07:00: Rocephin). [place] Use with 100 mL NS and infuse over 30 min MEDICATION WASTE Product Size: 1000 mg Product Wasted: ___ mg Azithromyci 2018- No 500 mg, Mem oria n 2-30 Route: PO, l 07:00: [id number], Dosing Weight 115.6, kg, Start date: 09/15/19 1:00:00 OVERCOILER, Duration: 3 day, Stop date: 09/17/19 1:00:00 OVERCOILER, ABX Indication : Non-PNA Respirator y Tract Infection Ceftriaxone 2018-09 No 1 gm, [facility] ia 2-30 Route: l 07:00: IVP, [id number], Dosing Weight 115.6, kg, Start date: 09/15/19 1:00:00 OVERCOILER, Duration: 7 day, Stop date: 09/21/19 1:00:00 OVERCOILER, ABX Indication : Pneumonia Rocephin + 2018-09 No Notes: [facility] ia sterile 2-30 (Same As: l water 10 mL 07:00: Rocephin). Use with 100 mL NS and infuse over 30 min MEDICATION WASTE Product Size: 1000 mg Product Wasted: ___ mg Azithromyci 2018-09 No 500 mg, Mem oria n 2-30 Route: PO, l 07:00: [id number], Dosing Weight 115.6, kg, Start date: 09/15/19 1:00:00 OVERCOILER, Duration: 3 day, Stop date: 09/17/19 1:00:00 OVERCOILER, ABX Indication : Non-PNA Respirator y Tract Infection Ceftriaxone 2018-09 No 1 gm, [facility] ia 2-30 Route: l 07:00: IVP, [id number], Dosing Weight 115.6, kg, Start date: 09/15/19 1:00:00 OVERCOILER, Duration: 7 day, Stop date: 09/21/19 1:00:00 OVERCOILER, ABX Indication : Pneumonia Rocephin + 2018-09 [...] 0.9% 2-30 preservati l 06:38: ve free. [place] 00 Nystatin 2018-09 No Notes: [facility]oria 100 UNT/MG 2-30 (Same l Topical 06:38: as:Mycosta Herm rachna Powder 00 tin, Nilstat) For external use only. Saline 2018-09 No Notes: [facility] Flush 0.9% 2-30 preservati l 06:38: ve free. [place] 00 Nystatin 2018-09 No Notes: [facility] 100 UNT/MG 2-30 (Same l Topical 06:38: as:Mycosta Herm rachna Powder 00 tin, Nilstat) For external use only. Saline 2018-09 No Notes: [facility] Flush 0.9% 2-30 preservati l 06:38: ve free. [place] methylPREDN 2018-09 No Notes: Samson jere ISolone [...] 2-30 Same as l 05:36: Keppra Mix [place] 00 with 100 mL NS, LR or D5W MEDICATION WASTE Product Size: 500 mg Product Wasted: ___ mg Keppra 2018-09 No Notes: [facility] 2-30 Same as l 05:36: Keppra Mix [place] 00 with 100 mL NS, LR or D5W MEDICATION WASTE Product Size: 500 mg Product Wasted: ___ mg Keppra 2018-09 No Notes: [facility] 2-30 Same as l 05:36: Keppra Mix [place] 00 with 100 mL NS, LR or D5W MEDICATION WASTE Product Size: 500 mg Product Wasted: ___ mg Keppra 2018-09 No Notes: [facility] 2-30 Same as l 05:36: Keppra Mix [place] with 100 mL NS, LR or D5W MEDICATION WASTE Product Size: 500 mg Product Wasted: ___ mg Keppra 2018-09 No Notes: [facility] 2-30 Same as l 05:36: Keppra Mix [place] 00 with 100 mL NS, LR or D5W MEDICATION WASTE Product Size: 500 mg Product Wasted: ___ mg Keppra 2018-09 No Notes: [facility] 2-30 Same as l 05:36: Keppra Mix [place] 00 with 100 mL NS, LR or D5W MEDICATION WASTE Product Size: 500 mg Product Wasted: ___ mg Keppra 2018-09 No Notes: [facility] 2-30 Same as l 05:36: Keppra Mix [place] 00 with 100 mL NS, LR or D5W MEDICATION WASTE Product Size: 500 mg Product Wasted: ___ mg Keppra 2018-09 No Notes: [facility] 2-30 Same as l 05:36: Keppra Mix [place] 00 with 100 mL NS, LR or D5W MEDICATION WASTE Product Size: 500 mg Product Wasted: ___ mg Albuterol 2018-09 No Notes: Memori a 0.833 MG/ML (Same as: 05:00: Duoneb) Arash Ipratropium 00 [place] 0.167 MG/ML Inhalant Solution Enoxaparin 2018-09 No Notes: Memor ia 2-30 (Same as: l 05:00: Lovenox) [place] Rocephin 2018-09 No 500 mg, Memori a 2-30 Route: l 05:00: IVPB, Drug [place]ash 00 form: PDR/INJ, [id number], Dosing Weight 130, kg, Start date: 09/14/19 23:00:00 OVERCOILER, Duration: 7 day, Stop date: 09/21/19 11:00:00 OVERCOILER, ABX Indication : Pneumonia Albuterol 2018-09 No Notes: Memori a 0.833 MG/ML 2-30 (Same as: l / 05:: Duoneb) [place] Ipratropium 00 [place] 0.167 MG/ML Inhalant Solution Albuterol 2018-09 No Notes: Memori a 0.833 MG/ML 2-30 (Same as: l / 05:: Duoneb) [place] Ipratropium 00 [place] 0.167 MG/ML Inhalant Solution Enoxaparin 2018-09 No Notes: Memor ia 2-30 (Same as: l 05:00: Lovenox) [place] 00 Rocephin 2018-09 No 500 mg, Memori a 2-30 Route: l 05:00: IVPB, Drug [place] 00 form: PDR/INJ, [id number], Dosing Weight 130, kg, Start date: 09/14/19 23:00:00 OVERCOILER, Duration: 7 day, Stop date: 09/21/19 11:00:00 OVERCOILER, ABX Indication : Pneumonia Enoxaparin 2018-09 No Notes: Mem[facility] ia 2-30 (Same as: l 05:00: Lovenox) [place] 00 Rocephin 2018-09 No 500 mg, Memori a 2-30 Route: l 05:00: IVPB, Drug [place]ash form: PDR/INJ, [id number], Dosing Weight 130, kg, Start date: 09/14/19 23:00:00 OVERCOILER, Duration: 7 day, Stop date: 09/21/19 11:00:00 OVERCOILER, ABX Indication : Pneumonia Albuterol 2018-09 No Notes: Memori a 0.833 MG/ML 2-30 (Same as: l 05:: Duoneb) [place] Ipratropium 00 [place] 0.167 MG/ML Inhalant Solution Enoxaparin 2018-09 No Notes: Memor ia 2-30 (Same as: l 05:00: Lovenox) [place] 00 Rocephin 2018-09 No 500 mg, Memori a 2-30 Route: l 05:00: IVPB, Drug [place] form: PDR/INJ, [id number], Dosing Weight 130, kg, Start date: 09/14/19 23:00:00 OVERCOILER, Duration: 7 day, Stop date: 09/21/19 11:00:00 OVERCOILER, ABX Indication : Pneumonia Albuterol 2018-09 No Notes: Memori a 0.833 MG/ML 2-30 (Same as: l 05:: Duoneb) [place] Ipratropium 00 [place] 0.167 MG/ML Inhalant Solution Enoxaparin 2018-09 No Notes: Mem[facility] ia 2-30 (Same as: l 05:00: Lovenox) [place] 00 Rocephin 2018-09 No 500 mg, Memori a 2-30 Route: l 05:00: IVPB, Drug [place]ash form: PDR/INJ, [id number], Dosing Weight 130, kg, Start date: 09/14/19 23:00:00 OVERCOILER, Duration: 7 day, Stop date: 09/21/19 11:00:00 OVERCOILER, ABX Indication : Pneumonia Albuterol 2018-09 No Notes: Memori a 0.833 MG/ML 2-30 (Same as: l :: Duoneb) [place] Ipratropium 00 [place] 0.167 MG/ML Inhalant Solution Enoxaparin 2018-09 No Notes: Mem[facility] ia 2-30 (Same as: l 05:00: Lovenox) [place] Rocephin 2018-09 No 500 mg, Memori a 2-30 Route: l 05:00: IVPB, Drug [place] 00 form: PDR/INJ, [id number], Dosing Weight 130, kg, Start date: 09/14/19 23:00:00 OVERCOILER, Duration: 7 day, Stop date: 09/21/19 11:00:00 OVERCOILER, ABX Indication : Pneumonia Albuterol 2018-09 No Notes: Memori a 0.833 MG/ML 2-30 (Same as: l / 05:00: Duoneb) [place]ash Ipratropium 00 [place] 0.167 MG/ML Inhalant Solution Enoxaparin 2018-09 No Notes: Mem[facility] ia 2-30 (Same as: l 05:00: Lovenox) Rocephin 2018-09 No 500 mg, Memori a 2-30 Route: l 05:00: IVPB, Drug form: PDR/INJ, [id number], Dosing Weight 130, kg, Start date: 09/14/19 23:00:00 OVERCOILER, Duration: 7 day, Stop date: 09/21/19 11:00:00 OVERCOILER, ABX Indication : Pneumonia Albuterol 2018-09 No Notes: Memori a 0.833 MG/ML 2-30 (Same as: l / 05:00: Duoneb) [place] Ipratropium 00 [place] 0.167 MG/ML Inhalant Solution Enoxaparin 2018-09 No Notes: Mem[facility] ia 2-30 (Same as: l 05:00: Lovenox) Rocephin 2018-09 No 500 mg, Memori a 2-30 Route: l 05:00: IVPB, Drug form: PDR/INJ, [id number], Dosing Weight 130, kg, Start date: 09/14/19 23:00:00 OVERCOILER, Duration: 7 day, Stop date: 09/21/19 11:00:00 OVERCOILER, ABX Indication : Pneumonia Budesonide 2018-09 No 2 Memoria 0.16 2-30 inhalation l MG/ACTUAT / 04:33: , Route: He rmann formoterol 00 INHALATION fumarate , Drug 0.0045 Form: MG/ACTUAT AERO/A, Metered Dosing Dose Weight Inhaler 130, kg, RBID, Start date: 09/14/19 22:33:00 OVERCOILER, Duration: 30 day, Stop date: 10/14/19 20:00:00 OVERCOILER metoprolol 2018-09 No Notes: Memor ia tartrate 2-30 (Same as: l 04:33: Lopressor) Labetalol 2018-09 No 150, 0 Memori a 2-30 l 04:33: Arash 00 Hydralazine 2018-09 No Notes: Samson jere 2-30 (Same as: l 04:33: Apresoline Arash 00 ) Push over 5 minutes Zofran 2018-09 No Notes: Memoria 2-30 (Same as: l 04:33: Zofran) [place] 00 MEDICATION WASTE Product Size: 4 mg [...] 130, kg, RBID, Start date: 09/14/19 22:33:00 OVERCOILER, Duration: 30 day, Stop date: 10/14/19 20:00:00 OVERCOILER metoprolol 2018-09 No Notes: Memor ia tartrate 2-30 (Same as: l 04:33: Lopressor) [place] 00 Labetalol 2018-09 No 150, 0 Memori a 2-30 l 04:33: Arash 00 Hydralazine 2018-09 No Notes: Samson jere 2-30 (Same as: l 04:33: Apresoline [place] 00 ) Push over 5 minutes Zofran 2018-09 No Notes: Memoria 2-30 (Same as: l 04:33: Zofran) [place] 00 MEDICATION WASTE Product Size: 4 mg Product Wasted: ___ mg Protonix 2018-09 No Notes: For Mem oria 2-30 IV push l 04:33: reconstitu [place] 00 te with 10 ml 0.9% sodium chloride and push over 2 minutes. (Same as: Protonix) Budesonide 2018-09 No 2 Memoria 0.16 2-30 inhalation l MG/ACTUAT / 04:33: , Route: He rmann formoterol 00 INHALATION fumarate , Drug 0.0045 Form: MG/ACTUAT AERO/A, Metered Dosing Dose Weight Inhaler 130, kg, RBID, Start date: 09/14/19 22:33:00 OVERCOILER, Duration: 30 day, Stop date: 10/14/19 20:00:00 OVERCOILER metoprolol 2018-09 No Notes: Memor ia tartrate 2-30 (Same as: l 04:33: Lopressor) Labetalol 2018-09 No 150, 0 Memori a 2-30 l 04:33: Arash 00 Hydralazine 2018-09 No Notes: Samson jere 2-30 (Same as: l 04:33: Apresoline ) Push over 5 minutes Zofran 2018-09 No Notes: Memoria 2-30 (Same as: l 04:33: Zofran) [place] 00 MEDICATION WASTE Product Size: 4 mg Product Wasted: ___ mg Protonix 2018-09 No Notes: For Mem oria 2-30 IV push l 04:33: reconstitu te with 10 ml 0.9% sodium chloride and push over 2 minutes. (Same as: Protonix) Budesonide 2018-09 No 2 Memoria 0.16 2-30 inhalation l MG/ACTUAT / 04:33: , Route: [facility] formoterol INHALATION fumarate , Drug 0.0045 Form: MG/ACTUAT AERO/A, Metered Dosing Dose Weight Inhaler 130, kg, RBID, Start date: 09/14/19 22:33:00 OVERCOILER, Duration: 30 day, Stop date: 10/14/19 20:00:00 OVERCOILER metoprolol 2018-09 No Notes: Memor ia tartrate 2-30 (Same as: l 04:33: Lopressor) Labetalol 2018-09 No 150, 0 Memori a 2-30 l 04:33: Arash 00 Hydralazine 2018-09 No Notes: Samson jere 2-30 (Same as: l 04:33: Apresoline ) Push over 5 minutes Zofran 2018-09 No Notes: Memoria 2-30 (Same as: l 04:33: Zofran) [place] 00 MEDICATION WASTE Product Size: 4 mg Product Wasted: ___ mg Protonix 2018-09 No Notes: For Mem oria 2-30 IV push l 04:33: reconstitu [place] 00 te with 10 ml 0.9% sodium chloride and push over 2 minutes. (Same as: Protonix) Budesonide 2018-09 No 2 Memoria 0.16 2-30 inhalation l MG/ACTUAT / 04:33: , Route: He rmann formoterol 00 INHALATION fumarate , Drug 0.0045 Form: MG/ACTUAT AERO/A, Metered Dosing Dose Weight Inhaler 130, kg, RBID, Start date: 09/14/19 22:33:00 OVERCOILER, Duration: 30 day, Stop date: 10/14/19 20:00:00 OVERCOILER metoprolol 2018-09 No Notes: Memor ia tartrate 2-30 (Same as: l 04:33: Lopressor) Raash 00 Labetalol 2018-09 No 150, 0 Memori a 2-30 l 04:33: [place] 00 Hydralazine 2018-09 No Notes: Samson jere 2-30 (Same as: l 04:33: Apresoline [place] 00 ) Push over 5 minutes Zofran [...] 130, kg, RBID, Start date: 09/14/19 22:33:00 OVERCOILER, Duration: 30 day, Stop date: 10/14/19 20:00:00 OVERCOILER metoprolol 2018-09 No Notes: Memor ia tartrate 2-30 (Same as: l 04:33: Lopressor) Arash Labetalol 2018-09 No 150, 0 Memori a 2-30 l 04:33: Arash 00 Hydralazine 2018-09 No Notes: Samson jere 2-30 (Same as: l 04:33: Apresoline Arash 00 ) Push over 5 minutes Zofran 2018-09 No Notes: Memoria 2-30 (Same as: l 04:33: Zofran) [place] 00 MEDICATION WASTE Product Size: 4 mg Product Wasted: ___ mg Protonix 2018-09 No Notes: For Mem oria 2-30 IV push l 04:33: reconstitu [place] 00 te with 10 ml 0.9% sodium chloride and push over 2 minutes. (Same as: Protonix) Budesonide 2018-09 No 2 Memoria 0.16 2-30 inhalation l MG/ACTUAT / 04:33: , Route: He ann formoterol 00 INHALATION fumarate , Drug 0.0045 Form: MG/ACTUAT AERO/A, Metered Dosing Dose Weight Inhaler 130, kg, RBID, Start date: 09/14/19 22:33:00 OVERCOILER, Duration: 30 day, Stop date: 10/14/19 20:00:00 OVERCOILER metoprolol 2018-09 No Notes: Memor ia tartrate 2-30 (Same as: l 04:33: Lopressor) [place] 00 Labetalol 2018-09 No 150, 0 Memori a 2-30 l 04:33: [place] 00 Hydralazine 2018-09 No Notes: Samson jere 2-30 (Same as: l 04:33: Apresoline Arash 00 ) Push over 5 minutes Zofran 2018-09 No Notes: Memoria 2-30 (Same as: l 04:33: Zofran) [place] 00 MEDICATION WASTE Product Size: 4 mg Product Wasted: ___ mg Protonix 2018-09 No Notes: For Mem oria 2-30 IV push l 04:33: reconstitu [place] 00 te with 10 ml 0.9% sodium chloride and push over 2 minutes. (Same as: Protonix) Budesonide 2018-09 No 2 Memoria 0.16 2-30 inhalation l MG/ACTUAT / 04:33: , Route: He rmann formoterol 00 INHALATION fumarate , Drug 0.0045 Form: MG/ACTUAT AERO/A, Metered Dosing Dose Weight Inhaler 130, kg, RBID, Start date: 09/14/19 22:33:00 OVERCOILER, Duration: 30 day, Stop date: 10/14/19 20:00:00 OVERCOILER metoprolol 2018-09 No Notes: Memor ia tartrate 2-30 (Same as: l 04:33: Lopressor) [place] 00 Labetalol 2018-09 No 150, 0 Memori a 2-30 l 04:33: [place] 00 Hydralazine 2018-09 No Notes: Samson jere [...] BID, PRN l MG / 18:21: Constipati [place] sennosides, 00 on, 0 [facility] 8.6 MG Refill(s) Oral Tablet gabapentin Yes 100 mg = 1 M emoria 100 MG Oral 18 cap, PO, l Capsule 18:21: Q8H, 0 [place] 00 Refill(s) Levetiracet Yes 500 mg = [...] 1 tab, PO, Memoria azole 800 9-18 [id number], 0 l MG / 18:21: Refill(s) [place] Trimethopri 00 m 160 MG Oral Tablet [Bactrim] Docusate Yes 1 tab, PO, Mem oria Sodium 50 9-18 BID, PRN l MG / 18:21: Constipati [place] sennosides, 00 on, 0 [facility]CF 8.6 MG Refill(s) Oral Tablet gabapentin Yes 100 mg = 1 M emoria 100 MG Oral 9-18 cap, PO, l Capsule 18:21: Q8H, 0 [place] 00 Refill(s) Levetiracet Yes 500 mg = [...] 1 tab, PO, Memoria azole 800 9-18 [id number], 0 l MG / 18:21: Refill(s) Arash Trimethopri 00 m 160 MG Oral Tablet [Bactrim] Docusate Yes 1 tab, PO, Mem oria Sodium 50 9-18 BID, PRN l MG / 18:21: Constipati [place] sennosides, 00 on, 0 CHCF 8.6 MG Refill(s) Oral Tablet gabapentin Yes [...] 1 tab, PO, Memoria azole 800 9-18 [id number], 0 l MG / 18:21: Refill(s) [place] Trimethopri 00 m 160 MG Oral Tablet [Bactrim] Docusate Yes 1 tab, PO, Mem oria Sodium 50 9-18 BID, PRN l MG / 18:21: Constipati Arash sennosides, 00 on, 0 [facility]CF 8.6 MG Refill(s) Oral Tablet gabapentin Yes 100 mg = 1 M emoria 100 MG Oral 9-18 cap, PO, l Capsule 18:21: Q8H, 0 [place] 00 Refill(s) Levetiracet Yes 500 mg = [...] 1 tab, PO, Memoria azole 800 9-18 [id number], 0 l MG / 18:21: Refill(s) Arash Trimethopri 00 m 160 MG Oral Tablet [Bactrim] Docusate Yes 1 tab, PO, Mem oria Sodium 50 9-18 BID, PRN l MG / 18:21: Constipati [place] sennosides, 00 on, 0 CHCF 8.6 MG Refill(s) Oral Tablet gabapentin Yes [...] 0 He rmann Patch 00 Refill(s) polyethylen 2018-0 Yes PO, Daily, Memoria e glycol 9-18 0 l 3350 oral 18:21: Refill(s) Her villegas powder for 00 reconstitut ion Sulfamethox Yes 1 tab, PO, Memoria azole 800 9-18 [id number], 0 l MG / 18:21: Refill(s) Arash Trimethopri 00 m 160 MG Oral Tablet [Bactrim] Docusate Yes 1 tab, PO, Mem oria Sodium 50 9-18 BID, PRN l MG / 18:21: Constipati [place] sennosides, 00 on, 0 CHCF 8.6 MG Refill(s) Oral Tablet gabapentin Yes 100 mg = 1 M emoria 100 MG Oral 18 cap, PO, l Capsule 18:21: Q8H, 0 [place] 00 Refill(s) Levetiracet Yes 500 mg = [...] 1 tab, PO, Memoria azole 800 9-18 [id number], 0 l MG / 18:21: Refill(s) [place] Trimethopri 00 m 160 MG Oral Tablet [Bactrim] Docusate Yes 1 tab, PO, Mem oria Sodium 50 9-18 BID, PRN l MG / 18:21: Constipati [place] sennosides, 00 on, 0 CHCF 8.6 MG Refill(s) Oral Tablet gabapentin Yes 100 mg = 1 M emoria 100 MG Oral 9-18 cap, PO, l Capsule 18:21: Q8H, 0 [place] 00 Refill(s) Levetiracet Yes 500 mg = [...] 1 tab, PO, Memoria azole 800 9-18 [id number], 0 l MG / 18:21: Refill(s) [place] Trimethopri 00 m 160 MG Oral Tablet [Bactrim] Docusate Yes 1 tab, PO, Mem oria Sodium 50 9-18 BID, PRN l MG / 18:21: Constipati [place] sennosides, 00 on, 0 CHCF 8.6 MG Refill(s) Oral Tablet gabapentin Yes 100 mg = 1 M emoria 100 MG Oral 9-18 cap, PO, l Capsule 18:21: Q8H, 0 [place] 00 Refill(s) Levetiracet Yes 500 mg = [...] 1 tab, PO, Memoria azole 800 9-18 [id number], 0 l MG / 18:21: Refill(s) Arash [...] patch 9-16 Remove l 02:00: patch 12 [place] 00 hours after applicatio n each day. remove No Notes: Memoria patch 9-16 Remove l 02:00: patch 12 Arash 00 hours after applicatio n each day. remove No Notes: Memoria patch 9-16 Remove l 02:00: patch 12 Arash 00 hours after applicatio n each day. remove No Notes: Memoria patch 9-16 Remove l 02:00: patch 12 [place] 00 hours after applicatio n each day. remove No Notes: Memoria patch 9-16 Remove l 02:00: patch 12 Arash 00 hours after applicatio n each day. Docusate No Notes: Memoria Sodium 50 9-15 (Same as l MG / 22:00: Senokot-S) Arash sennosides, 00 Equiv. to [facility] 8.6 MG [facility] Oral Tablet e. Docusate No Notes: Memoria Sodium 50 9-15 (Same as l MG / 22:00: Senokot-S) Arash sennosides, 00 Equiv. to [facility] 8.6 MG [facility] Oral Tablet e. Docusate No Notes: Memoria Sodium 50 9-15 (Same as l MG / 22:00: Senokot-S) Arash sennosides, 00 Equiv. to [facility] 8.6 MG [facility] Oral Tablet e. Docusate No Notes: Memoria Sodium 50 9-15 (Same as l MG / 22:00: Senokot-S) Arash sennosides, 00 Equiv. to [facility] 8.6 MG [facility] Oral Tablet e. Docusate No Notes: Memoria Sodium 50 9-15 (Same as l MG / 22:00: Senokot-S) [place] sennosides, 00 Equiv. to CH[facility] 8.6 MG [facility] Oral Tablet e. Docusate No Notes: Memoria Sodium 50 9-15 (Same as l MG / 22:00: Senokot-S) [place] sennosides, 00 Equiv. to [facility] 8.6 MG [facility] Oral Tablet e. Docusate No Notes: Memoria Sodium 50 9-15 (Same as l MG / 22:00: Senokot-S) [place] sennosides, 00 Equiv. to [facility] 8.6 MG [facility] Oral Tablet e. Docusate No Notes: Memoria Sodium 50 9-15 (Same as l MG / 22:00: Senokot-S) [place] sennosides, 00 Equiv. to [facility] 8.6 MG [facility] Oral Tablet e. Lidocaine [...] CDT albuterol No Notes: SEE Me moria 9-13 RT l 20:00: DOCUMENTAT [place] 00 ION (Same as: Proventil) albuterol No Notes: SEE Me moria 9-13 RT l 20:00: DOCUMENTAT [place] 00 ION (Same as: Proventil) albuterol No Notes: SEE Me moria 9-13 RT l 20:00: DOCUMENTAT [place] 00 ION (Same as: Proventil) albuterol No Notes: SEE Me moria 9-13 RT l 20:00: DOCUMENTAT [place] 00 ION (Same as: Proventil) albuterol No Notes: SEE Me moria 9-13 RT l 20:00: DOCUMENTAT [place] 00 ION (Same as: Proventil) albuterol No Notes: SEE Me moria 9-13 RT l 20:00: DOCUMENTAT [place] 00 ION (Same as: Proventil) albuterol No Notes: SEE Me moria 9-13 RT l 20:00: DOCUMENTAT [place] 00 ION (Same as: Proventil) albuterol No Notes: SEE Me moria 9-13 RT l 20:00: DOCUMENTAT [place] 00 ION (Same as: Proventil) Pulmicort No Notes: Memori a Respules 9-13 (Same As: l 19:36: Pulmicort) Arash Pulmicort No Notes: Memori a Respules 9-13 (Same As: l 19:36: Pulmicort) [place] Pulmicort No Notes: Memori a Respules 9-13 (Same As: l 19:36: Pulmicort) Arash Pulmicort No Notes: Memori a Respules 9-13 (Same As: l 19:36: Pulmicort) [place] Pulmicort No Notes: Memori a Respules 9-13 (Same As: l 19:36: Pulmicort) [place] Pulmicort No Notes: Memori a Respules 9-13 [...] DS tablet l MG / 23:00: = [place] Trimethopri 00 trimethopr m 160 MG im 160mg + Oral Tablet sulfametho [Bactrim] xazole 800 mg Dose based on trimethopr im component On empty stomach with a glass of water. (Same As: Bactrim DS, Septra DS) Sulfamethox No Notes: One Memoria azole 800 9-12 DS tablet l MG / 23:00: = [place] Trimethopri 00 trimethopr m 160 MG im [...] DS tablet l MG / 23:00: = [place] Trimethopri 00 trimethopr m 160 MG im [...] DS tablet l MG / 23:00: = [place] Trimethopri 00 trimethopr m 160 MG im 160mg + Oral Tablet sulfametho [Bactrim] xazole 800 mg Dose based on trimethopr im component On empty stomach with a glass of water. (Same As: Bactrim DS, Septra DS) Sulfamethox No Notes: One Memoria azole 800 9-12 DS tablet l MG / 23:00: = [place] Trimethopri 00 trimethopr m 160 MG im 160mg + Oral Tablet sulfametho [Bactrim] xazole 800 mg Dose based on trimethopr im component On empty stomach with a glass of water. (Same As: Bactrim DS, Septra DS) Morphine No Notes: Memoria 9-12 (Same l 21:01: as:MORPhin Arash 00 e Sulfate) Morphine No Notes: Memoria 9-12 (Same l 21:01: as:MORPhin [place] 00 e Sulfate) Morphine No Notes: Memoria 9-12 (Same l 21:01: as:MORPhin [place] 00 e Sulfate) Morphine No Notes: Memoria 9-12 (Same l 21:01: as:MORPhin [place] 00 e Sulfate) Morphine No Notes: Memoria 9-12 (Same l 21:01: as:MORPhin [place] 00 e Sulfate) Morphine No Notes: Memoria 9-12 (Same l 21:01: as:MORPhin Arash 00 e Sulfate) Morphine No Notes: Memoria 9-12 (Same l 21:01: as:MORPhin [place] 00 e Sulfate) Morphine No Notes: Memoria 9-12 (Same l 21:01: as:MORPhin Arash 00 e Sulfate) Detrol No Notes: Memoria 9-12 (Same As: l 14:00: Detrol) metoprolol No Notes: Memor ia tartrate 05-29 (Same as: l 14:00: Lopressor) Miralax No 17 gm, 1 Memori a 9 pkt, l 14:00: Route: PO, Drug form: PWDR, Daily, Dosing Weight 130, kg, Start date: 05/29/19 9:00:00 CDT, Duration: 30 day, Stop date: 06/27/19 9:00:00 CDT, 0 Levetiracet No Notes: Samson jere am 500 MG 05-29 (Same l Oral Tablet 14:00: as:Keppra) [Keppra] 00 Losartan No Notes: Memoria 9-12 (Same as: [...] 9-12 (Same l Oral Tablet 14:00: as:Keppra) [place] [Keppra] Losartan No Notes: Memoria 9-12 (Same [...] -12 (Same l Oral Tablet 14:00: as:Keppra) Arash [...] 9-12 (Same l Oral Tablet 14:00: as:Keppra) [place] [Keppra] Losartan No Notes: Memoria 9-12 (Same [...] (Same as l MG / 09:37: Senokot-S) [place] sennosides, 00 Equiv. to [facility] 8.6 MG [facility] Oral Tablet e. Docusate No Notes: Memoria Sodium 50 9-12 (Same as l MG / 09:37: Senokot-S) [place] sennosides, 00 Equiv. to [facility] 8.6 MG [facility] Oral Tablet e. Docusate No Notes: Memoria Sodium 50 9-12 (Same as l MG / 09:37: Senokot-S) [place] sennosides, 00 Equiv. to [facility] 8.6 MG [place] Oral Tablet e. Docusate No Notes: Memoria Sodium 50 9-12 (Same as l MG / 09:37: Senokot-S) Arash sennosides, 00 Equiv. to [facility] 8.6 MG [place] Oral Tablet e. Docusate No Notes: Memoria Sodium 50 9-12 (Same as l MG / :37: Senokot-S) Arash sennosides, 00 Equiv. to [facility] 8.6 MG [place] Oral Tablet e. Docusate No Notes: Memoria Sodium 50 9-12 (Same as l MG / :37: Senokot-S) [place] sennosides, 00 Equiv. to [facility] 8.6 MG [place] Oral Tablet e. Docusate No Notes: Memoria Sodium 50 9-12 (Same as l MG / 09:37: Senokot-S) Arash sennosides, 00 Equiv. to [facility] 8.6 MG [facility] Oral Tablet e. Docusate No Notes: Memoria Sodium 50 9-12 (Same as l MG / 09:37: Senokot-S) [place] sennosides, 00 Equiv. to [facility] 8.6 MG [facility] Oral Tablet e. Tramadol No 100 mg, 2 Samson jere 11 tab, l 23:22: Route: PO, Arash 00 [...] 2019-0 No 100 mg, 2 Samson jere 05-28 tab, l 23:22: Route: PO, Arash 00 [...] Route: l 20:00: NEB, Drug Arash form: SOLN, RQID, Start date: 05/28/19 15:00:00 CDT, Duration: 30 day, Stop date: 06/27/19 11:00:00 CDT, 0 albuterol 2019-0 No 2.49 mg, 3 Me moria 9-11 mL, Route: l 20:00: NEB, Drug Arash form: JOHNJaleesaPRICILLAID, Start date: 05/28/19 15:00:00 CDT, Duration: 30 day, Stop date: 06/27/19 11:00:00 CDT, 0 albuterol 2019-0 No 2.49 mg, 3 Me moria 9-11 mL, Route: l 20:00: NEB, Drug [place] 00 form: JOHNJaleesaPRICILLAID, Start date: 05/28/19 15:00:00 CDT, Duration: 30 day, Stop date: 06/27/19 11:00:00 CDT, 0 albuterol 2019-0 No 2.49 mg, 3 Me moria 9-11 mL, Route: l 20:00: NEB, Drug [place] 00 form: JOHNJaleesaPRICILLAID, Start date: 05/28/19 15:00:00 CDT, Duration: 30 day, Stop date: 06/27/19 11:00:00 CDT, 0 albuterol 2019-0 No 2.49 mg, 3 Me moria 9-11 mL, Route: l 20:00: NEB, Drug Arash 00 form: JOHNJaleesaPRICILLAID, Start date: 05/28/19 15:00:00 CDT, Duration: 30 day, Stop date: 06/27/19 11:00:00 CDT, 0 albuterol 2019-0 No 2.49 mg, 3 Me moria 9-11 mL, Route: l 20:00: NEB, Drug [place] form: JOHNJaleesa RQID, Start date: 05/28/19 15:00:00 CDT, Duration: 30 day, Stop date: 06/27/19 11:00:00 CDT, 0 albuterol 2019-0 No 2.49 mg, 3 Me moria 9-11 mL, Route: l 20:00: NEB, Drug Arash form: DIMPLE PRICILLAID, Start date: 05/28/19 15:00:00 CDT, Duration: 30 day, Stop date: 06/27/19 11:00:00 CDT, 0 Tylenol No Notes: Max Samson jere 9-11 acetaminop l 19:33: hen 4000 Arash 00 mg/day (4 gm/day). (Same as: Tylenol Extra Strength) Tylenol No Notes: Max Samson jere 9-11 acetaminop l 19:33: hen 4000 [place] 00 mg/day (4 gm/day). (Same as: Tylenol Extra Strength) Tylenol No Notes: Max Samson jere 9-11 acetaminop l 19:33: hen 4000 [place] 00 mg/day (4 gm/day). (Same as: Tylenol [...] jere 9-11 acetaminop l 19:33: hen 4000 [place] 00 mg/day (4 gm/day). (Same as: Tylenol Extra Strength) Tylenol No Notes: Max Samson jere 9-11 acetaminop l 19:33: hen 4000 Arash 00 mg/day (4 gm/day). (Same as: Tylenol Extra Strength) Tylenol No Notes: Max Samson jere 9-11 acetaminop l 19:33: hen 4000 [place] 00 mg/day (4 gm/day). (Same as: Tylenol Extra Strength) Pulmicort No 0.5 mg, 2 Mem oria Respules 9-11 mL, Route: l 18:52: NEB, Drug [place] 00 form: SUSP, RBID, Start date: 05/28/19 13:52:00 CDT, Duration: 30 day, Stop date: 06/27/19 8:00:00 CDT, 0 Pulmicort No 0.5 mg, 2 Mem oria Respules 9-11 mL, Route: l 18:52: NEB, Drug Arash 00 form: SUSP, RBID, Start date: 05/28/19 13:52:00 CDT, Duration: 30 day, Stop date: 06/27/19 8:00:00 CDT, 0 Pulmicort 2019-0 No 0.5 mg, 2 Mem oria Respules 9-11 mL, Route: l 18:52: NEB, Drug [place] 00 form: SUSP, RBID, Start date: 05/28/19 [...] 9-11 mL, Route: l 18:52: NEB, Drug [place] 00 form: SUSP, RBID, Start date: 05/28/19 13:52:00 CDT, Duration: 30 day, Stop date: 06/27/19 8:00:00 CDT, 0 Pulmicort 2019-0 No 0.5 mg, 2 Mem oria Respules 9-11 mL, Route: l 18:52: NEB, Drug Arash form: SUSP, RBID, Start date: 05/28/19 13:52:00 CDT, Duration: 30 day, Stop date: 06/27/19 8:00:00 CDT, 0 Pulmicort 2019-0 No 0.5 mg, 2 Mem oria Respules 9-11 mL, Route: l 18:52: NEB, Drug [place] 00 form: SUSP, RBID, Start date: 05/28/19 13:52:00 CDT, Duration: 30 day, Stop date: 06/27/19 8:00:00 CDT, 0 Amoxicillin 2019-0 No 1 tab, Samson jere 875 MG / 05-28 Route: PO, l Clavulanate 18:41: Drug Form: [place] 125 MG Oral 00 TAB, Tablet Dosing [Augmentin Weight 875-mg] 130, kg, [id number], NOW, Start date: 05/28/19 13:41:00 CDT, Duration: 30 day, Stop date: 06/27/19 2:00:00 CDT, 0 Amoxicillin 2019-0 No 1 tab, Samson jere 875 MG / 05-28 Route: PO, l Clavulanate 18:41: Drug Form: [place] 125 MG Oral 00 TAB, Tablet Dosing [Augmentin Weight 875-mg] 130, kg, [id number], NOW, Start date: 05/28/19 13:41:00 CDT, Duration: 30 day, Stop date: 06/27/19 2:00:00 CDT, 0 Amoxicillin 2019-0 No 1 tab, Samson jere 875 MG / 05-28 Route: PO, l Clavulanate 18:41: Drug Form: [place] 125 MG Oral 00 TAB, Tablet Dosing [Augmentin Weight 875-mg] 130, kg, [id number], NOW, Start date: 05/28/19 13:41:00 CDT, Duration: 30 day, Stop date: 06/27/19 2:00:00 CDT, 0 Amoxicillin 2019-0 No 1 tab, Samson jere 875 MG / 05-28 Route: PO, l Clavulanate 18:41: Drug Form: Arash 125 MG Oral 00 TAB, Tablet Dosing [Augmentin Weight 875-mg] 130, kg, [id number], NOW, Start date: 05/28/19 13:41:00 CDT, Duration: 30 day, Stop date: 06/27/19 2:00:00 CDT, 0 Amoxicillin 2019-0 No 1 tab, Samson jere 875 MG / 05-28 Route: PO, l Clavulanate 18:41: Drug Form: [place] 125 MG Oral 00 TAB, Tablet Dosing [Augmentin Weight 875-mg] 130, kg, [id number], NOW, Start date: 05/28/19 13:41:00 CDT, Duration: 30 day, Stop date: 06/27/19 2:00:00 CDT, 0 Amoxicillin 2019-0 No 1 tab, Samson jere 875 MG / 05-28 Route: PO, l Clavulanate 18:41: Drug Form: Arash 125 MG Oral 00 TAB, Tablet Dosing [Augmentin Weight 875-mg] 130, kg, [id number], NOW, Start date: 05/28/19 13:41:00 CDT, Duration: 30 day, Stop date: 06/27/19 2:00:00 CDT, 0 Amoxicillin 2019-0 No 1 tab, Samson jere 875 MG / 05-28 Route: PO, l Clavulanate 18:41: Drug Form: [place] 125 MG Oral 00 TAB, Tablet Dosing [Augmentin Weight 875-mg] 130, kg, [id number], NOW, Start date: 05/28/19 13:41:00 CDT, Duration: 30 day, Stop date: 06/27/19 2:00:00 CDT, 0 Amoxicillin 2019-0 No 1 tab, Samson jere 875 MG / 05-28 Route: PO, l Clavulanate 18:41: Drug Form: [place] 125 MG Oral 00 TAB, Tablet Dosing [Augmentin Weight 875-mg] 130, kg, [id number], NOW, Start date: 05/28/19 13:41:00 CDT, Duration: 30 day, Stop date: 06/27/19 2:00:00 CDT, 0 Amlodipine 2019-0 No Notes: Memor ia 9-11 (Same as: l 14:00: Norvasc) Amlodipine 2018-0 No Notes: Memor ia 9-11 (Same as: l 14:00: Norvasc) Amlodipine 2018-0 No Notes: Memor ia 9-11 (Same as: l 14:00: Norvasc) Amlodipine 0 No Notes: Memor ia 9-11 (Same as: l 14:00: Norvasc) Amlodipine 0 No Notes: Memor ia 9-11 (Same as: [...] jere 9-11 acetaminop l 05:00: hen 4000 [place] 00 mg/day (4 gm/day). (Same as: Tylenol Extra Strength) gabapentin No Notes: Memor ia 9-11 (Same as: l 05:00: Neurontin) Tylenol No Notes: Max Samson jere 9-11 acetaminop l 05:00: hen 4000 [place] 00 mg/day (4 gm/day). (Same as: Tylenol Extra Strength) gabapentin No Notes: Memor ia 9-11 (Same as: l 05:00: Neurontin) [place] Tylenol No Notes: Max Samson jere 9-11 [...] jere 9-11 acetaminop l 05:00: hen 4000 [place] 00 mg/day (4 gm/day). (Same as: Tylenol [...] jere 9-11 acetaminop l 05:00: hen 4000 [place] 00 mg/day (4 gm/day). (Same as: Tylenol Extra Strength) gabapentin No Notes: Memor ia 9-11 (Same as: l 05:00: Neurontin) Naproxen No Notes: Memoria 9-11 (Same as: l 02:00: Naprosyn) Take with food. Naproxen 2019-0 No Notes: Memoria 9-11 (Same as: l 02:00: Naprosyn) Arash 00 Take with food. Naproxen 0 No Notes: Memoria 9-11 (Same as: l 02:00: Naprosyn) Arash 00 Take with food. Naproxen 0 No Notes: Memoria 9-11 (Same as: l 02:00: Naprosyn) Arash 00 Take with food. Naproxen 2018-0 No Notes: Memoria 9-11 (Same as: l 02:00: Naprosyn) Arash 00 Take with food. Naproxen 2018-0 No Notes: Memoria 9-11 (Same as: l 02:00: Naprosyn) [place] 00 Take with food. Naproxen 2018-0 No Notes: Memoria 9-11 (Same as: l 02:00: Naprosyn) Arash 00 Take with food. Naproxen 2018-0 No Notes: Memoria 9-11 (Same as: l 02:00: Naprosyn) [place] 00 Take with food. Hydralazine 2018-0 No 10 mg, Samson jere 9-10 Route: l 21:32: IVP, ONCE, [place] 00 Dosing Weight 130, kg, Start date: 05/27/19 16:32:00 CDT, Stop date: 05/27/19 16:32:00 CDT Hydralazine 2018-0 No 10 mg, Samson jere 9-10 Route: l 21:32: IVP, ONCE, [place] 00 Dosing Weight 130, kg, Start date: 05/27/19 16:32:00 CDT, Stop date: 05/27/19 16:32:00 CDT Hydralazine 2018-0 No 10 mg, Samson jere 9-10 Route: l 21:32: IVP, ONCE, [place] 00 Dosing Weight 130, kg, Start date: 05/27/19 16:32:00 CDT, Stop date: 05/27/19 16:32:00 CDT Hydralazine 2018-0 No 10 mg, Samson jere 9-10 Route: l 21:32: IVP, ONCE, [place] 00 Dosing Weight 130, kg, Start date: [...] CDT, Stop date: 05/27/19 16:32:00 CDT Losartan 2019-0 No Notes: Memoria 9-10 (Same as: l 21:00: Cozaar) Losartan 2018-0 No Notes: Memoria 9-10 (Same as: l 21:00: Cozaar) Losartan 2019-0 No Notes: Memoria 9-10 (Same as: l 21:00: Cozaar) Losartan 2019-0 No Notes: Memoria 9-10 (Same as: l 21:00: Cozaar) Losartan 2019-0 No Notes: Memoria 9-10 (Same as: l 21:00: Cozaar) Losartan 2019-0 No Notes: Memoria 9-10 (Same as: l 21:00: Cozaar) Losartan 2019-0 No Notes: Memoria 9-10 (Same as: l 21:00: Cozaar) Losartan 2019-0 No Notes: [facility] 9-10 (Same as: l 21:00: Cozaar) Arash 00 Dexmedetomi No Notes: Use [facility] dine 9-10 the l 20:06: following [place] 00 cdm for [id number]. Dexmedetomi No Notes: Use [facility] dine 9-10 the l 20:06: following Arash 00 cdm for [id number]. Dexmedetomi No Notes: Use [facility] dine 9-10 the l 20:06: following Arash 00 cdm for [id number]. Dexmedetomi No Notes: Use [facility] dine 9-10 the l 20:06: following [place] 00 cdm for [email or web address]. Dexmedetomi No Notes: Use [facility] dine 9-10 the l 20:06: following [place] 00 cdm for [id number]. Dexmedetomi No Notes: Use [facility] dine 9-10 the l 20:06: following Arash 00 cdm for [id number]. Dexmedetomi No Notes: Use [facility] dine 9-10 the l 20:06: following [place] 00 cdm for [id number]. Dexmedetomi No Notes: Use [facility] dine 9-10 the l 20:06: following [place] 00 cdm for [id number]. cefepime No Notes: [facility] 9-10 (Same As: l 14:00: Maxipime) Arash 00 MEDICATION WASTE Product Size: 1000 mg Product Wasted: _0__ mg Famotidine No Notes: Memor ia 9-10 (Same as: l 14:00: Pepcid) Arash 00 Can be dilute in 5-10cc NS IVP: Slow IV push over at least 2 minutes. Saline 2018- No Notes: [facility] Flush 0.9% 9-10 (Same [...] Memoria 9-10 (Same As: l 14:00: Maxipime) [place] 00 MEDICATION WASTE Product Size: 1000 mg Product Wasted: _0__ mg Famotidine No Notes: Memor ia 9-10 (Same as: l 14:00: Pepcid) [place] 00 Can be dilute in 5-10cc NS [...] Memoria 9-10 (Same As: l 14:00: Maxipime) [place] 00 MEDICATION WASTE Product Size: 1000 mg Product Wasted: _0__ mg Famotidine No Notes: [facility]or ia 9-10 (Same as: l 14:00: Pepcid) [place] 00 Can be dilute in 5-10cc NS IVP: Slow IV push over at least 2 minutes. Saline No Notes: [facility] Flush 0.9% 9-10 (Same as: l 14:00: BD [place] 00 Posiflush) chlorhexidi No Notes: Samson jere [...] ia 9-10 (Same as: l 14:00: Pepcid) [place] 00 Can be dilute in 5-10cc NS IVP: Slow IV push over at least 2 minutes. Saline No Notes: [facility] Flush 0.9% 9-10 (Same as: l 14:00: BD [place] 00 Posiflush) chlorhexidi No Notes: Samson jere [...] ia 9-10 (Same as: l 14:00: Pepcid) [place] 00 Can be dilute in 5-10cc NS [...] Memoria 9-10 (Same As: l 14:00: Maxipime) [place] 00 MEDICATION WASTE Product Size: 1000 mg [...] 0.9% 9-10 (Same as: l 14:00: BD [place] 00 Posiflush) chlorhexidi No Notes: Samson jere ne 05-27 (Same As: l gluconate 14:00: Peridex) Herm rachna 1.2 MG/ML 00 Mouthwash Symbicort No Notes: [facility]ori a 160/4.5 05-27 (Same as: l inhalation 14:00: Symbicort) H ermann aerosol 00 WASTE: with Aerosol - adapter Return to Pharmacy cefepime No Notes: [facility] - (Same As: l 13:00: Maxipime) [place] 00 MEDICATION WASTE Product Size: 1000 mg Product Wasted: 0 mg cefepime No Notes: [facility] - (Same As: l 13:00: Maxipime) [place] 00 MEDICATION WASTE Product Size: 1000 mg Product Wasted: 0 mg cefepime No Notes: [facility] - (Same As: l 13:00: Maxipime) Arash 00 MEDICATION WASTE Product Size: 1000 mg Product Wasted: 0 mg cefepime No Notes: [facility] - (Same As: l 13:00: Maxipime) Arash 00 MEDICATION WASTE Product Size: 1000 mg Product Wasted: 0 mg cefepime No Notes: Memoria - (Same As: l 13:00: Maxipime) Arash 00 MEDICATION WASTE Product Size: 1000 mg Product Wasted: 0 mg cefepime No Notes: Memoria - (Same As: l 13:00: Maxipime) Arash 00 MEDICATION WASTE Product Size: 1000 mg Product Wasted: 0 mg cefepime No Notes: Memoria 9-10 (Same As: l 13:00: Maxipime) Arash 00 MEDICATION WASTE Product Size: 1000 mg Product Wasted: 0 mg cefepime No Notes: Memoria 9- (Same As: l 13:00: Maxipime) Arash 00 MEDICATION WASTE Product Size: 1000 mg Product Wasted: 0 mg Levoxyl No Notes: Memoria 9-10 Take 1 l 11:30: hour [place] 00 before or 2 hours after meal; Enteral feeds may interefere with the absorption of this medication . (Same as:Levothr oid, Synthroid) Levoxyl No Notes: Memoria 9-10 Take 1 l 11:30: hour [place] 00 before or 2 hours after meal; Enteral feeds may interefere with the absorption of this medication . (Same as:Levothr oid, Synthroid) Levoxyl No Notes: Memoria 9-10 Take 1 l 11:30: hour [place] 00 before or 2 hours after meal; Enteral feeds may interefere with the absorption of this medication . (Same as:Levothr oid, Synthroid) Levoxyl No Notes: Memoria 9-10 Take 1 l 11:30: hour [place] 00 before or 2 hours after meal; [...] Memoria 9-10 Take 1 l 11:30: hour [place] 00 before or 2 hours after meal; [...] (Same as l MG / 11:04: Senokot-S) [place] sennosides, 00 Equiv. to [facility] 8.6 MG [place] Oral Tablet e. Docusate No Notes: Memoria Sodium 50 9-10 (Same as l MG / 11:04: Senokot-S) Arash sennosides, 00 Equiv. to [facility] 8.6 MG [place] Oral Tablet e. Docusate No Notes: Memoria Sodium 50 9-10 (Same as l MG / 11:04: Senokot-S) [place]ash sennosides, 00 Equiv. to [facility] 8.6 MG [place] Oral Tablet e. Docusate No Notes: Memoria Sodium 50 9-10 (Same as l MG / 11:04: Senokot-S) [place] sennosides, 00 Equiv. to [facility] 8.6 MG [place] Oral Tablet e. Docusate No Notes: Memoria Sodium 50 9-10 (Same as l MG / 11:04: Senokot-S) [place] sennosides, 00 Equiv. to [facility] 8.6 MG [place] Oral Tablet e. Docusate No Notes: Memoria Sodium 50 9-10 (Same as l MG / 11:04: Senokot-S) [place] sennosides, 00 Equiv. to [facility] 8.6 MG [place] Oral Tablet e. Docusate No Notes: Memoria Sodium 50 9-10 (Same as l MG / 11:04: Senokot-S) [place] sennosides, 00 Equiv. to [facility] 8.6 MG [place] Oral Tablet e. Docusate No Notes: Memoria Sodium 50 9-10 (Same as l MG / 11:04: Senokot-S) [place] sennosides, 00 Equiv. to [facility] 8.6 MG [place] Oral Tablet e. ocular No Notes: Memoria lubricant 9-10 (Same as: l 11:00: Lacri-Lube [place] 00 , Puralube, Duratears Naturale, Artificial Tears, and Tears Again ) ocular No Notes: Memoria lubricant 9-10 (Same as: l 11:00: Lacri-Lube [place] 00 , Puralube, Duratears Naturale, Artificial Tears, and Tears Again ) ocular No Notes: Memoria lubricant 9-10 (Same as: l 11:00: Lacri-Lube [place] 00 , Puralube, Duratears Naturale, Artificial Tears, and Tears Again ) ocular No Notes: Memoria lubricant 9-10 (Same as: l 11:00: Lacri-Lube [place] 00 , Puralube, Duratears Naturale, Artificial Tears, [...] [Levoxyl] # 30 tab, 0 Refill(s) Levothyroxi 2019- Yes 100 Memori a ne Sodium 9-10 [...] 1.2 MG/ML 00 Mouthwash chlorhexidi No Notes: Smason jere ne 9-10 (Same As: l gluconate [...] M emoria 9-10 0 l 07:28: Refill(s) [place] 00 Furosemide No 40 mg = 1 Me moria 40 MG Oral 9-10 tab, PO, l Tablet 07:28: Daily, # Arash [Lasix] 00 30 tab, 0 Refill(s) Levoxyl No PO, Daily, Samson jere 9-10 0 l 07:28: Refill(s) [place] 00 losartan 50 Yes 50 mg = 1 M emoria mg oral 9-10 tab, PO, l tablet 07:28: Daily, # [place] 00 30 tab, 0 Refill(s) metoprolol Yes [...] 9-10 INHALER, l 0.09 07:28: Q6H, PRN [place] MG/ACTUAT 00 for Metered wheezing, Dose # 8.5 gm, Inhaler 0 [ProAir Refill(s) HFA] Amlodipine 2018-0 No PO, Daily, M emoria 9-10 0 l 07:28: Refill(s) [place] 00 Furosemide 2018-0 No 40 mg = 1 Me moria 40 MG Oral 9-10 tab, PO, l Tablet 07:28: Daily, # Arash [Lasix] 00 30 tab, 0 Refill(s) Levoxyl 0 No PO, Daily, Samson jere 9-10 0 l 07:28: Refill(s) [place] 00 losartan 50 0 Yes 50 mg = 1 M emoria mg oral 9-10 tab, PO, l tablet 07:28: Daily, # [place] 00 30 tab, 0 Refill(s) metoprolol Yes [...] Tablet 00 tab, 0 [Detrol] Refill(s) Loratadine 2019-0 Yes 10 mg = 1 Me moria 10 MG Oral 9-10 tab, PO, l Tablet 07:28: Daily, # Arash 00 30 tab, 0 Refill(s) 200 ACTUAT 2018-0 Yes 2 puff, Samson jere Albuterol 9-10 INHALER, l 0.09 07:28: Q6H, PRN [place] MG/ACTUAT 00 for Metered wheezing, Dose # 8.5 gm, Inhaler 0 [ProAir Refill(s) HFA] Amlodipine No PO, Daily, M emoria 9-10 0 l 07:28: Refill(s) [place]ash 00 Furosemide No 40 mg = 1 Me moria 40 MG Oral 9-10 tab, PO, l Tablet 07:28: Daily, # Arash [Lasix] 00 30 tab, 0 Refill(s) Levoxyl 0 No PO, Daily, Samson jree 9-10 0 l 07:28: Refill(s) Arash 00 losartan 50 Yes 50 mg = 1 M emoria mg oral 9-10 tab, PO, l tablet 07:28: Daily, # [place] 00 30 tab, 0 Refill(s) metoprolol Yes [...] gm, Inhaler 0 [ProAir Refill(s) HFA] Amlodipine 2019-0 No PO, Daily, M emoria 9-10 0 l 07:28: Refill(s) [place] 00 Furosemide No 40 mg = 1 Me moria 40 MG Oral 9-10 tab, PO, l Tablet 07:28: Daily, # [place] [Lasix] 00 30 tab, 0 Refill(s) Levoxyl [...] tab, PO, l Tablet 07:28: Daily, # [place] 00 30 tab, 0 Refill(s) 200 ACTUAT Yes 2 puff, Samson jere Albuterol 9-10 INHALER, l 0.09 07:28: Q6H, PRN [place] MG/ACTUAT 00 for Metered wheezing, Dose # 8.5 gm, Inhaler 0 [ProAir Refill(s) HFA] Amlodipine No PO, Daily, M emoria 9-10 0 l 07:28: Refill(s) [place] 00 Furosemide 2019-0 No 40 mg = 1 Me moria 40 MG Oral 9-10 tab, PO, l Tablet 07:28: Daily, # Arash [Lasix] 00 30 tab, 0 Refill(s) Levoxyl 2018-0 No PO, Daily, Samson jere 9-10 0 l 07:28: Refill(s) [place] 00 losartan 50 2019-0 Yes 50 mg = 1 M emoria [...] 0 l 07:28: Refill(s) [place] 00 Furosemide 2018-0 No 40 mg = 1 Me moria 40 MG Oral 9-10 tab, PO, l Tablet 07:28: Daily, # Arash [Lasix] 00 30 tab, 0 Refill(s) Levoxyl 2019-0 No PO, Daily, Samson jere 9-10 0 l 07:28: Refill(s) [place] 00 losartan 50 2019-0 Yes 50 mg = 1 M emoria mg oral 9-10 tab, PO, l tablet 07:28: Daily, # [place]ash 00 30 tab, 0 Refill(s) metoprolol 20190 Yes 50 mg = 1 Me moria [...] 9-10 INHALER, l 0.09 07:28: Q6H, PRN [place] MG/ACTUAT 00 for Metered wheezing, Dose # 8.5 gm, Inhaler 0 [ProAir Refill(s) HFA] Amlodipine 0 No PO, Daily, M emoria 9-10 0 l 07:28: Refill(s) [place] 00 Furosemide 2018-0 No 40 mg = 1 Me moria 40 MG Oral 9-10 tab, PO, l Tablet 07:28: Daily, # [place] [Lasix] 00 30 tab, 0 Refill(s) Levoxyl 2019-0 No PO, Daily, Samson jere 9-10 0 [...] tab, PO, l Tablet 07:28: Daily, # [place] 00 30 tab, 0 Refill(s) 200 ACTUAT Yes 2 puff, Samson jere Albuterol 9-10 [...] Samson jere 9-10 0 l 07:28: Refill(s) [place] 00 losartan 50 Yes 50 mg = 1 M emoria mg oral 9-10 tab, PO, l tablet 07:28: Daily, # [place] 00 30 tab, 0 Refill(s) metoprolol 2019 [...] 00 30 tab, 0 Refill(s) 200 ACTUAT Yes 2 puff, Samson jere Albuterol 9-10 INHALER, l 0.09 07:28: Q6H, PRN [place]ash MG/ACTUAT 00 for Metered wheezing, Dose # 8.5 gm, Inhaler 0 [ProAir Refill(s) HFA] Flagyl No Notes: Memoria 9-10 (Same as: l 05:00: Flagyl) [place] 00 Avoid alcohol. Vancomycin 2019 No 2001 mg: Me moria 9-10 infuse l 05:00: over 2.5 [place] 00 hours For adult patients only: Round to nearest 250 mg per Medical Staff approval MEDICATION WASTE Product Size: 1000 mg Product Wasted: ___ mg Flagyl No Notes: Memoria 9-10 (Same as: l 05:00: Flagyl) [place] 00 Avoid alcohol. Vancomycin 2018- No 2001 mg: Me moria 9-10 infuse l 05:00: over 2.5 [place] 00 hours For adult patients only: Round [...] Memoria 9-10 (Same as: l 05:00: Flagyl) [place] 00 Avoid alcohol. Vancomycin 2019-0 No 2001 mg: Me moria 9-10 infuse l 05:00: over 2.5 Arash 00 hours For adult patients only: Round to nearest 250 mg per Medical Staff approval MEDICATION WASTE Product Size: 1000 mg Product Wasted: ___ mg Flagyl 2019-0 No Notes: Memoria 9-10 (Same as: l 05:00: Flagyl) [place] 00 Avoid alcohol. Vancomycin 2019-0 No 2001 [...] moria 9-10 infuse l 05:00: over 2.5 [place] 00 hours For adult patients only: Round [...] ___ mg Flagyl 2019-0 No Notes: Memoria 05-27 (Same as: l 05:00: Flagyl) [place] 00 Avoid alcohol. Vancomycin 2019-0 No 2001 mg: Me moria 9-10 infuse l 05:00: over 2.5 [place]ash 00 hours For adult patients only: Round to nearest 250 mg per Medical Staff approval MEDICATION WASTE Product Size: 1000 mg Product Wasted: ___ mg Vancomycin 2019-0 No 2001 mg: Me moria 9-10 infuse l 04:25: over 2.5 [place] 00 hours For adult patients only: Round to nearest 250 mg per Medical Staff approval MEDICATION WASTE Product Size: 1000 mg Product Wasted: ___ mg cefepime 2019-0 No Notes: Memoria 05-27 (Same as: l 04:25: Maxipime) [place] 00 MEDICATION WASTE Product Size: 2000 mg Product Wasted: ___ mg Vancomycin 2019-0 No 2001 mg: Me moria 9-10 infuse l 04:25: over 2.5 [place] 00 hours For adult patients only: Round [...] ___ mg cefepime 2019-0 No Notes: Memoria 9-10 (Same as: l 04:25: Maxipime) [place] 00 MEDICATION WASTE Product Size: 2000 mg Product Wasted: ___ mg Vancomycin 2019-0 No 2001 mg: Me moria 9-10 infuse l 04:25: over 2.5 [place] 00 hours For adult patients only: Round to nearest 250 mg per Medical Staff approval MEDICATION WASTE Product Size: 1000 mg Product Wasted: ___ mg cefepime 2019-0 No Notes: Memoria 10 (Same as: l 04:25: Maxipime) [place] 00 MEDICATION WASTE Product Size: 2000 mg Product Wasted: ___ mg Vancomycin 2019-0 No 2001 mg: Me moria 9-10 infuse l 04:25: over 2.5 [place] 00 hours For adult patients only: Round to nearest 250 mg per Medical Staff approval MEDICATION WASTE Product Size: 1000 mg Product Wasted: ___ mg cefepime 2019-0 No Notes: Memoria 05-27 (Same as: l 04:25: Maxipime) [place] 00 MEDICATION WASTE Product Size: 2000 mg Product Wasted: ___ mg Vancomycin 2019-0 No 2001 mg: Me moria 9-10 infuse l 04:25: over 2.5 [place] 00 hours For adult patients only: Round [...] Memoria 05-27 (Same as: l 04:25: Maxipime) [place] 00 MEDICATION WASTE Product Size: 2000 mg Product Wasted: ___ mg Vancomycin 2019-0 No 2001 mg: Me moria 9-10 infuse l 04:25: over 2.5 [place] 00 hours For adult patients only: Round to nearest 250 mg per Medical Staff approval MEDICATION WASTE Product Size: 1000 mg Product Wasted: ___ mg cefepime 2019-0 No Notes: Memoria 910 (Same as: l 04:25: Maxipime) [place] 00 MEDICATION WASTE Product Size: 2000 mg Product Wasted: ___ mg Enoxaparin No Notes: Memor ia 9-10 (Same as: l 04:00: Lovenox) [place] Enoxaparin No Notes: Memor ia 9-10 (Same as: l 04:00: Lovenox) Arash Enoxaparin No Notes: Memor ia 9-10 (Same as: l 04:00: Lovenox) [place] Enoxaparin No Notes: Memor ia 9-10 (Same as: l 04:00: Lovenox) Arash Enoxaparin No Notes: Memor ia 9-10 (Same as: l 04:00: Lovenox) [place] Enoxaparin No Notes: Memor ia 9-10 (Same as: l 04:00: Lovenox) [place]ash Enoxaparin No Notes: Memor ia 9-10 (Same as: l 04:00: Lovenox) [place]ash Enoxaparin No Notes: Memor ia 9-10 (Same as: l 04:00: Lovenox) [place] Nystatin No Notes: Memoria 100 UNT/MG 9-10 (Same l Topical 03:59: as:Mycosta Herm rachna Powder 00 tin, Nilstat) For external use only. Albuterol No Notes: Memori a 0.833 MG/ML 9-10 (Same as: l / 03:59: Duoneb) [place] Ipratropium 00 [place] 0.167 MG/ML Inhalant Solution Saline No Notes: Memoria Flush 0.9% 9-10 (Same as: l 03:59: BD [place] 00 Posiflush) Nystatin No Notes: Memoria 100 UNT/MG 9-10 (Same l Topical 03:59: as:Mycosta Herm rachna Powder 00 tin, Nilstat) For external use only. Albuterol No Notes: Memori a 0.833 MG/ML 9-10 (Same as: l / 03:59: Duoneb) [place] Ipratropium 00 [place] 0.167 MG/ML Inhalant Solution Saline No Notes: Memoria Flush 0.9% 9-10 (Same as: l 03:59: BD [place] 00 Posiflush) Nystatin No Notes: Memoria 100 UNT/MG 9-10 (Same l Topical 03:59: as:Mycosta Herm rachna Powder 00 tin, Nilstat) For external use only. Albuterol No Notes: Memori a 0.833 MG/ML 9-10 (Same as: l / 03:59: Duoneb) [place]ash Ipratropium 00 [place] 0.167 MG/ML Inhalant Solution Saline No Notes: Memoria Flush 0.9% 9-10 (Same as: l 03:59: BD [place] 00 Posiflush) Nystatin No Notes: Memoria 100 UNT/MG 9-10 (Same l Topical 03:59: as:Mycosta Herm rachna Powder 00 tin, Nilstat) For external use only. Albuterol No Notes: Memori a 0.833 MG/ML 9-10 (Same as: l / 03:59: Duoneb) [place] Ipratropium 00 [place] 0.167 MG/ML Inhalant Solution Saline No Notes: [facility]oria Flush 0.9% 9-10 (Same as: l 03:59: BD [place] 00 Posiflush) Nystatin No Notes: Memoria 100 UNT/MG 9-10 (Same l Topical 03:59: as:Mycosta Herm rachna Powder 00 tin, Nilstat) For external use only. Albuterol No Notes: Memori a 0.833 MG/ML 9-10 (Same as: l / 03:59: Duoneb) [place] Ipratropium 00 [place] 0.167 MG/ML Inhalant Solution Saline No Notes: Memoria Flush 0.9% 9-10 (Same as: l 03:59: BD [place] 00 Posiflush) Nystatin No Notes: Memoria 100 UNT/MG 9-10 (Same l Topical 03:59: as:Mycosta Herm rachna Powder 00 tin, Nilstat) For external use only. Albuterol No Notes: Memori a 0.833 MG/ML 9-10 (Same as: l / 03:59: Duoneb) [place] Ipratropium 00 [place] 0.167 MG/ML Inhalant Solution Saline No Notes: Memoria Flush 0.9% 9-10 (Same as: l 03:59: BD [place] 00 Posiflush) Nystatin No Notes: Memoria 100 UNT/MG 9-10 (Same l Topical 03:59: as:Mycosta Herm rachna Powder 00 tin, Nilstat) For external use only. Albuterol No Notes: Memori a 0.833 MG/ML 9-10 (Same as: l / 03:59: Duoneb) [place] Ipratropium 00 [place] 0.167 MG/ML Inhalant Solution Saline No Notes: Memoria Flush 0.9% 9-10 (Same as: l 03:59: BD [place] 00 Posiflush) Nystatin No Notes: Memoria 100 UNT/MG 9-10 (Same l Topical 03:59: as:Mycosta Herm rachna Powder 00 tin, Nilstat) For external use only. Albuterol No Notes: Memori a 0.833 MG/ML 9-10 (Same as: l / 03:59: Duoneb) [place]ash Ipratropium 00 [place] 0.167 MG/ML Inhalant Solution Saline No Notes: Memoria Flush 0.9% 9-10 (Same as: l 03:59: BD [place] 00 Posiflush) Fentanyl No 50 Memoria 9-09 microgram, l 23:09: Route: Arash 00 IVP, ONCE, Dosing Weight 130, kg, Priority: STAT, Start date: 05/26/19 18:09:00 CDT, Stop date: 05/26/19 18:09:00 CDT Fentanyl 2018- No 50 Memoria 9-09 microgram, l 23:09: Route: Arash 00 IVP, ONCE, Dosing Weight 130, kg, Priority: STAT, Start date: 05/26/19 18:09:00 CDT, Stop date: 05/26/19 18:09:00 CDT Fentanyl 2018-0 No 50 Memoria 9-09 microgram, l 23:09: Route: [place] 00 IVP, ONCE, Dosing Weight 130, kg, Priority: STAT, Start date: 05/26/19 18:09:00 CDT, Stop date: 05/26/19 18:09:00 CDT Fentanyl 2019-0 No 50 Memoria 9-09 microgram, l 23:09: Route: Arash 00 IVP, ONCE, Dosing Weight 130, kg, Priority: STAT, Start date: 05/26/19 18:09:00 CDT, Stop date: 05/26/19 18:09:00 CDT Fentanyl 2019-0 No 50 Memoria 9-09 microgram, l 23:09: Route: [place] 00 IVP, ONCE, Dosing Weight 130, kg, Priority: STAT, Start date: 05/26/19 18:09:00 CDT, Stop date: 05/26/19 18:09:00 CDT Fentanyl 2019-0 No 50 Memoria 9-09 microgram, l 23:09: Route: [place] 00 IVP, ONCE, Dosing Weight 130, kg, Priority: STAT, Start date: 05/26/19 18:09:00 CDT, Stop date: 05/26/19 18:09:00 CDT Fentanyl 2019-0 No 50 Memoria 9-09 microgram, l 23:09: Route: [place] 00 IVP, ONCE, Dosing Weight 130, kg, Priority: STAT, Start date: 05/26/19 18:09:00 CDT, Stop date: 05/26/19 18:09:00 CDT Fentanyl 2019-0 No 50 Memoria 9-09 microgram, l 23:09: Route: [place]ash 00 IVP, ONCE, Dosing Weight 130, kg, Priority: STAT, Start date: 05/26/19 18:09:00 CDT, Stop date: 05/26/19 18:09:00 CDT Fentanyl 2019-0 No 1,000 Memoria 9-09 microgram, l 21:43: 20 mL, [place] 00 Rate: Titrate, Start Dose: 50 microgram/ hr, Titration: 25 microgram/ hour every 15 minutes, Goal(s): rass 0, Max Dose: 300 microgram/ hr, Route: IV, Dosing Weight 130 kg, Total Volume: 20, Start date: 05/26/19 16:43:00 CDT, Durat... Fentanyl 2019-0 No 1,000 Memoria 9-09 microgram, l 21:43: 20 mL, [place] 00 Rate: Titrate, Start Dose: 50 microgram/ hr, Titration: 25 microgram/ hour every 15 minutes, Goal(s): rass 0, Max Dose: 300 microgram/ hr, Route: IV, Dosing Weight 130 kg, Total Volume: 20, Start date: 05/26/19 16:43:00 CDT, Durat... Fentanyl 2019-0 No 1,000 Memoria 9-09 microgram, l 21:43: 20 mL, [place] 00 Rate: Titrate, Start Dose: 50 microgram/ hr, Titration: 25 microgram/ hour every 15 minutes, Goal(s): rass 0, Max Dose: 300 microgram/ hr, Route: IV, Dosing Weight 130 kg, Total Volume: 20, Start date: 05/26/19 16:43:00 CDT, Durat... Fentanyl 2019-0 No 1,000 Memoria 9-09 microgram, l 21:43: 20 mL, [place] 00 Rate: Titrate, Start Dose: 50 microgram/ hr, Titration: 25 microgram/ hour every 15 minutes, Goal(s): rass 0, Max Dose: 300 microgram/ hr, Route: IV, Dosing Weight 130 kg, Total Volume: 20, Start date: 05/26/19 16:43:00 CDT, Durat... Fentanyl 2019-0 No 1,000 Memoria 9-09 microgram, l 21:43: 20 mL, Arash 00 Rate: Titrate, Start Dose: 50 microgram/ hr, Titration: 25 microgram/ hour every 15 minutes, Goal(s): rass 0, Max Dose: 300 microgram/ hr, Route: IV, Dosing Weight 130 kg, Total Volume: 20, Start date: 05/26/19 16:43:00 CDT, Durat... Fentanyl 2019-0 No 1,000 Memoria 9-09 microgram, l 21:43: 20 mL, [place] 00 Rate: Titrate, Start Dose: 50 microgram/ hr, Titration: 25 microgram/ hour every 15 minutes, Goal(s): rass 0, Max Dose: 300 microgram/ hr, Route: IV, Dosing Weight 130 kg, Total Volume: 20, Start date: 05/26/19 16:43:00 CDT, Durat... Fentanyl 2019-0 No 1,000 Memoria 9-09 microgram, l 21:43: 20 mL, Arash 00 Rate: Titrate, Start Dose: 50 microgram/ hr, [...] 50 Memoria 9-09 microgram, l 20:47: Route: [place] 00 IVP, Drug form: INJ, ONCE, Dosing [...] 50 Memoria 9-09 microgram, l 20:47: Route: [place] 00 IVP, Drug form: INJ, ONCE, Dosing Weight 130, kg, Priority: STAT, Start date: 05/26/19 15:47:00 CDT, Stop date: 05/26/19 15:47:00 CDT, 0 Fentanyl 2019-0 No 50 Memoria 9- microgram, l 20:47: Route: [place] IVP, Drug form: INJ, ONCE, Dosing Weight 130, kg, Priority: STAT, Start date: 05/26/19 15:47:00 CDT, Stop date: 05/26/19 15:47:00 CDT, 0 Fentanyl 2019-0 No 50 Memoria 9- microgram, l 20:47: Route: Arash IVP, Drug form: INJ, ONCE, Dosing Weight 130, kg, Priority: STAT, Start date: 05/26/19 15:47:00 CDT, Stop date: 05/26/19 15:47:00 CDT, 0 Fentanyl 2018-0 No 50 Memoria - microgram, l 20:47: Route: [place]ash 00 IVP, [...] CDT, Stop date: 05/26/19 15:46:00 CDT Fentanyl 2018-0 No 50 Memoria - microgram, l 19:46: 1 mL, Route: IVP, Drug form: INJ, ONCE, Dosing Weight 130, kg, Priority: STAT, Start date: 05/26/19 14:46:00 CDT, Stop date: 05/26/19 14:46:00 CDT, 0 Fentanyl 2018-0 No 50 Memoria 9-09 microgram, l 19:46: [...] Stop date: 05/26/19 14:46:00 CDT, 0 Propofol 2019-0 No Notes: Per Mem oria 05-26 state l 19:42: nursing [place] 00 law propofol can only be given by a nurse if patient is intubated or being intubated (unless the nurse is a VEHICLE DYNAMICS ENGINEER). (Same as: Ju) Fentanyl 0 No Notes: Memoria 05-26 (Same as: l 19:42: Sublimaze) [place] Propofol No Notes: Per Mem oria 05-26 state l 19:42: nursing [place] 00 law propofol can only be given by a nurse if patient is intubated or being intubated (unless the nurse is a VEHICLE DYNAMICS ENGINEER). (Same as: Ju) Fentanyl No Notes: Memoria 05-26 (Same as: l 19:42: Sublimaze) [place] Propofol No Notes: Per Mem oria 05-26 state l 19:42: nursing [place] 00 law propofol can only be given by a nurse if patient is intubated or being intubated (unless the nurse is a VEHICLE DYNAMICS ENGINEER). (Same as: Ju) Fentanyl No Notes: Memoria 05-26 (Same as: l 19:42: Sublimaze) [place] Propofol 0 No Notes: Per Mem oria 05-26 state l 19:42: nursing [place] 00 law propofol can only be given by a nurse if patient is intubated or being intubated (unless the nurse is a VEHICLE DYNAMICS ENGINEER). (Same as: Ju) Fentanyl No Notes: Memoria 05-26 (Same as: l 19:42: Sublimaze) [place] Propofol 0 No Notes: Per Mem oria 05-26 state l 19:42: nursing [place] 00 law propofol can only be given by a nurse if patient is intubated or being intubated (unless the nurse is a VEHICLE DYNAMICS ENGINEER). (Same as: Ju) Fentanyl 2018- No Notes: Memoria 05-26 (Same as: l 19:42: Sublimaze) [place] 00 Propofol 2018-0 No Notes: Per Mem oria 05-26 state l 19:42: nursing [place] 00 law propofol can only be given by a nurse if patient is intubated or being intubated (unless the nurse is a VEHICLE DYNAMICS ENGINEER). (Same as: Ju) Fentanyl No Notes: Memoria 05-26 (Same as: l 19:42: Sublimaze) Propofol No Notes: Per Mem oria 05-26 state l 19:42: nursing [place] law propofol can only be given by a nurse if patient is intubated or being intubated (unless the nurse is a VEHICLE DYNAMICS ENGINEER). (Same as: Ju) Fentanyl No Notes: Memoria 05-26 (Same as: l 19:42: Sublimaze) [place]ash 00 Propofol No Notes: Per Mem oria 05-26 state l 19:42: nursing [place] law propofol can only be given by a nurse if patient is intubated or being intubated (unless the nurse is a VEHICLE DYNAMICS ENGINEER). (Same as: Ju) Fentanyl No Notes: Memoria [...] Start date: 05/26/19 14:30:00 CDT, Durati... propofol 2018- No 1,000 mg, M emoria mg/mL 05-26 [...] Start date: 05/26/19 14:30:00 CDT, Durati... propofol 2018-0 No 1,000 mg, M emoria mg/mL 05-26 [...] Notes: Memoria 05-26 (Same l 18:16: as:Omnipaq [place] 00 ue 350). WASTE: F/P - Black; E - Municipal Trash Bin Iohexol No Notes: Memoria 05-26 (Same l 18:16: as:Omnipaq Arash 00 ue 350). WASTE: F/P - Black; E - Municipal Trash Bin Iohexol No Notes: Memoria 05-26 (Same l 18:16: as:Omnipaq Arash 00 ue 350). WASTE: F/P - Black; E - Municipal Trash Bin Iohexol No Notes: Memoria 05-26 (Same l 18:16: as:Omnipaq Arash 00 ue 350). WASTE: F/P - Black; E - Municipal Trash Bin Iohexol No Notes: Memoria 05-26 (Same l 18:16: as:Omnipaq [place] 00 ue 350). WASTE: F/P - Black; E - Municipal Trash Bin Iohexol No Notes: Memoria 05-26 (Same l 18:16: as:Omnipaq Arash 00 ue 350). WASTE: F/P - Black; E - Municipal Trash Bin Iohexol No Notes: Memoria 05-26 (Same l 18:16: as:Omnipaq [place] 00 ue 350). WASTE: F/P - Black; E - Municipal Trash Bin Iohexol 2018-0 No Notes: oria 05-26 (Same l 18:16: as:Omnipaq [place] 00 ue 350). WASTE: F/P - Black; E - Municipal Trash Bin Iohexol 0 No 150 mL, Memoria 05-26 Route: l 18:12: IVP, Drug [place] Form: SOLN, kg, ONCALL, STAT, Start date: 05/26/19 13:12:00 CDT, Duration: 1 doses or times, Dose = 2.2ml/kg, Max dose = 150ml -- "To be infused by Radiology Staff ONLY" Iohexol 2018-0 No 150 mL, Memoria 05-26 Route: l 18:12: IVP, Drug [place] Form: SOLN, kg, ONCALL, STAT, Start date: 05/26/19 13:12:00 CDT, Duration: 1 doses or times, Dose = 2.2ml/kg, Max dose = 150ml -- "To be infused by Radiology Staff ONLY" Iohexol 0 No 150 mL, Memoria 05-26 Route: l 18:12: IVP, Drug [place] Form: SOLN, kg, ONCALL, STAT, Start date: 05/26/19 13:12:00 CDT, Duration: 1 doses or times, Dose = 2.2ml/kg, Max dose = 150ml -- "To be infused by Radiology Staff ONLY" Iohexol 2018-0 No 150 mL, Memoria 05-26 Route: l 18:12: IVP, Drug [place] Form: SOLN, kg, ONCALL, STAT, Start date: 05/26/19 13:12:00 CDT, Duration: 1 doses or times, Dose = 2.2ml/kg, Max dose = 150ml -- "To be infused by Radiology Staff ONLY" Iohexol 2018-0 No 150 mL, Memoria 05-26 Route: l 18:12: IVP, Drug [place] 00 Form: SOLN, kg, ONCALL, STAT, Start date: 05/26/19 13:12:00 CDT, Duration: 1 doses or times, Dose = 2.2ml/kg, Max dose = 150ml -- "To be infused by Radiology Staff ONLY" Iohexol 0 No 150 mL, Memoria 05-26 Route: l 18:12: IVP, Drug [place] 00 Form: SOLN, kg, ONCALL, STAT, Start date: 05/26/19 13:12:00 CDT, Duration: 1 doses or times, Dose = 2.2ml/kg, Max dose = 150ml -- "To be infused by Radiology Staff ONLY" Iohexol No 150 mL, Memoria 05-26 Route: l 18:12: IVP, Drug [place] Form: SOLN, kg, ONCALL, STAT, Start date: 05/26/19 13:12:00 CDT, Duration: 1 doses or times, Dose = 2.2ml/kg, Max dose = 150ml -- "To be infused by Radiology Staff ONLY" Iohexol No 150 mL, Memoria 05-26 Route: l 18:12: IVP, Drug [place] Form: SOLN, kg, ONCALL, STAT, Start date: 05/26/19 13:12:00 CDT, Duration: 1 doses or times, Dose = 2.2ml/kg, Max dose = 150ml -- "To be infused by Radiology Staff ONLY" Morphine No Notes: Memoria 05-26 (Same l 17:22: as:MORPhin [place] 00 e Sulfate) Zofran No Notes: Memoria [...] Notes: Memoria 05-26 (Same l 17:22: as:MORPhin [place] 00 e Sulfate) Zofran No Notes: Memoria 05-26 (Same as: l 17:22: Zofran) Arash 00 MEDICATION WASTE Product Size: 4 mg Product Wasted: ___ mg Morphine No Notes: Memoria 05-26 (Same l 17:22: as:MORPhin [place] 00 e Sulfate) Zofran No Notes: Memoria [...] 0.9% 05-26 (Same as: l 17:16: BD [place] 00 Posiflush) Saline No Notes: Memoria Flush 0.9% 05-26 (Same as: l 17:16: BD Arash 00 Posiflush) Saline No Notes: Memoria Flush 0.9% 9-09 (Same as: l 17:16: BD [place] 00 Posiflush) Saline No Notes: Memoria Flush 0.9% 9-09 (Same as: l 17:16: BD [place] 00 Posiflush) Saline No Notes: Memoria Flush 0.9% 9-09 (Same as: l 17:16: BD Arash 00 Posiflush) Saline No Notes: Memoria Flush 0.9% 9-09 (Same as: l 17:16: BD Arash 00 Posiflush) Saline No Notes: Memoria Flush 0.9% 9-09 (Same as: l 17:16: BD [place] 00 Posiflush) Saline No Notes: Memoria Flush 0.9% 9-09 (Same as: l 17:16: BD Arash 00 Posiflush) Estrace Estrace Yes Ramon as Commo n 6-06 [facility] 00:00: - [facility] 00 [facility] Levothyroxi Levothyroxi Yes Ramon 1 tablet Common ne Sodium ne Sodium [facility] on an Sp tai empty - [facility] stomach in [facility] Pravastatin Pravastatin Yes Ramon 1 tablet Common Sodium Sodium [facility] Loratadine Loratadine Yes Ramon 1 tablet Common Allergy Allergy [facility] on the Spiri t Relief Relief tongue and - [facility] allow to [facility] Perforomist Perforomist Yes Ramon [address] [facility] Divalproex Divalproex Yes Ramon not C ommon Sodium Sodium Johns defined [facility] Losartan Losartan Yes Ramon 1 tablet C ommon Potassium Potassium Johns Spi rit [facility] Furosemide Furosemide Yes Ramon [address] [facility] ProAir HFA ProAir HFA Yes Ramon 2 puffs as Common Johns needed [facility] Symbicort Symbicort Yes Ramon [address] [facility] Amlodipine Amlodipine Yes Ramon 1 tablet Common Besylate Besylate Johns Spiri t - [facility] Klor-Con Klor-Con Yes Ramon 1 packet C ommon Andreas with food [facility] Quetiapine Quetiapine Yes Ramon 1 tablet Common Fumarate Fumarate [facility] Metoprolol Metoprolol Yes Ramon not C ommon Succinate Succinate [place] defined [facility] Immunizations Ordered Filled Immunization Date Status Comments [facility] e Immunization Name Name Pneumococcal 2015-05-30 Completed [place] o f Polysaccharide, 00:00:00 [facility] ical PPSV23 (PNEUMOVAX) [place] Vital Signs Vital Name Observation Time Observation Value Comments Source Systolic blood 2020-11-12 22:50:00 152 mm[Hg] [facility] Diastolic blood 2020-11-12 22:50:00 67 mm[Hg] [facility] Heart rate 2020-11-12 22:50:00 90 /min [facility] Body temperature 2020-11-12 22:50:[address] [facility] Respiratory rate 2020-11-12 22:50:00 20 /min [facility] Oxygen saturation in 2020-11-12 22:50:00 96 /min [facility] Arterial blood by [facility] Pulse oximetry Branch Body weight 2020-11-03 23:13:00 113.399 kg [facility] BMI 2020-11-03 23:13:00 47.20 kg/m2 [facility] Systolic blood 2020-11-12 22:50:00 152 mm[Hg] [facility] Diastolic blood 2020-11-12 22:50:00 67 mm[Hg] Unive rsity of pressure [facility] Heart rate 2020-11-12 22:50:00 90 /min [facility] Body temperature 2020-11-12 22:50:00 37.39 Karen [facility] Respiratory rate 2020-11-12 22:50:00 20 /min [facility] Oxygen saturation in 2020-11-12 22:50:00 96 /min [facility] [place] [facility] Pulse oximetry Branch Body weight 2020-11-03 23:13:00 113.399 kg [facility] BMI 2020-11-03 23:13:00 47.20 kg/m2 [facility] Temperature Oral (F) 2019-09-17 13:15:00 98.1 F [facility] Heart Rate 2019-09-17 13:15:00 [facility] Respitory Rate 2019-09-17 13:15:00 Memori al Arash Systolic (mm Hg) 2019-09-17 13:15:00 Samson rial [place] Diastolic (mm Hg) 2019-09-17 13:15:00 Mem orial [place] Temperature Oral (F) 2019-09-17 09:14:00 97.8 F [facility] Heart Rate 2019-09-17 09:14:00 [facility] Respitory Rate 2019-09-17 09:14:00 Memori al Arash Systolic (mm Hg) 2019-09-17 09:14:00 Samson rial Arash Diastolic (mm Hg) 2019-09-17 09:14:00 Mem orial Arash Temperature Oral (F) 2019-09-17 04:42:00 97.6 F [facility] [place] Heart Rate 2019-09-17 04:42:00 [facility] Respitory Rate 2019-09-17 04:42:00 Memori al Arash Systolic (mm Hg) 2019-09-17 04:42:00 Samson rial [place] Diastolic (mm Hg) 2019-09-17 04:42:00 Mem orial Arash Weight 2019-09-16 12:50:00 [facility] Height 2019-09-15 05:17:00 157.48 cm [facility] Weight 2019-09-15 05:17:00 [facility] BMI Calculated 2019-09-15 05:17:00 Memori al Ar[facility] Temperature Oral (F) 2019-06-04 17:13:00 97.1 F [facility] [place] Heart Rate 2019-06-04 17:13:00 [facility] [place] Respitory Rate 2019-06-04 17:13:00 Memori al Arash Systolic (mm Hg) 2019-06-04 17:13:00 Samson rial [place] Diastolic (mm Hg) 2019-06-04 17:13:00 Mem orial Arash Temperature Oral (F) 2019-06-04 12:15:00 97.5 F [facility] [place] Heart Rate 2019-06-04 12:15:00 [facility] Respitory Rate 2019-06-04 12:15:00 Memori al Arash Systolic (mm Hg) 2019-06-04 12:15:00 Samson rial Arash Diastolic (mm Hg) 2019-06-04 12:15:00 Mem orial Arash Heart Rate 2019-06-04 09:41:00 [facility] [place] Respitory Rate 2019-06-04 09:41:00 Memori al Arash Systolic (mm Hg) 2019-06-04 09:41:00 Samson rial [place] Diastolic (mm Hg) 2019-06-04 09:41:00 Mem orial [place] Temperature Oral (F) 2019-06-03 21:55:00 99.4 F [facility] [place] Height 2019-05-30 10:34:00 160.02 cm [facility] [place] Height 2019 16:48:00 160.02 cm [facility] Height 2019 12:47:00 160.02 cm [facility] Weight 2019-05-27 02:16:00 [facility] Arash BMI Calculated 2019-05-27 02:16:00 Memori al [place] BMI Calculated 2019-05-26 17:05:00 Memori al Arash Weight 2019-05-26 17:05:00 [facility] Procedures Procedure Date / Time Performing Clinician Source Performed BASIC METABOLIC PANEL (NA, 2020-11-10 10:07:00 Arminda Brarera [facility] K, CL, CO2, GLUCOSE, BUN, Medica l Branch CREATININE, CA) CBC WITH DIFF 2020-11-10 10:07:00 [facility] VERIFYNOW ASPIRIN TEST 2020-11-10 10:07:00 Arminda Barrera [facility] BASIC METABOLIC PANEL (NA, 2020-11-09 10:43:00 Abdul [facility] K, CL, CO2, GLUCOSE, BUN, Medica l Branch CREATININE, CA) CBC WITH DIFF 2020-11-09 10:43:00 [facility] MR BRAIN W WO CONTRAST 2020-11-08 18:56:[address] [facility] BASIC METABOLIC PANEL (NA, 2020-11-08 10:18:00 Minnie Abdul [facility] [place] K, CL, CO2, GLUCOSE, BUN, Medica l Branch CREATININE, CA) CBC WITH DIFF 2020-11-08 10:18:00 Minnie Abdul [facility] POCT GLUCOSE (AUTOMATED) 2020-11-07 14:06:00 Sondra Spicer [facility] POCT GLUCOSE (AUTOMATED) 2020-11-07 02:09:00 Sondra Spicer [facility] POCT GLUCOSE (AUTOMATED) 2020-11-06 22:49:00 Sondra Spicer [facility] POCT GLUCOSE (AUTOMATED) 2020-11-06 18:43:00 Sondra Spicer [facility] POCT GLUCOSE (AUTOMATED) 2020-11-06 14:19:00 Sondra Spicer [facility] POCT GLUCOSE (AUTOMATED) 2020-11-06 02:45:00 Sondra Spicer [facility] POCT GLUCOSE (AUTOMATED) 2020-11-05 23:16:00 Sondra Spicer [facility] POCT GLUCOSE (AUTOMATED) 2020-11-05 18:47:00 Sondra Spicer [facility] POCT GLUCOSE (AUTOMATED) 2020-11-05 15:21:00 Sondra Spicer [facility] TROPONIN I 2020-11-05 10:07:00 Annalabrich [facility] BASIC METABOLIC PANEL (NA, 2020-11-05 10:07:00 Vallab[facility]ema [facility], CL, CO2, GLUCOSE, BUN, Jessie Medica l Branch CREATININE, CA) CBC WITH DIFF 2020-11-05 10:07:00 Chip [facility] TROPONIN I 2020-11-05 02:24:00 Briana Tiwari [facility] ECHO ROUTINE W/DOPPLER 2020-11-04 15:07:52 [facility] CAROTID DUPLEX BILATERAL 2020-11-04 14:36:19 Briana Tiwari [facility] BY VASCULAR LAB [facility] LIPID PANEL (36311)(TOTAL 2020-11-04 14:21:00 Briana Tiwari [facility] CHOLESTEROL, [facility] TRIGLYCERIDES, HDL) GLYCOSYLATED HEMOGLOBIN 2020-11-04 14:21:00 Briana Tiwari [facility] (A1C) [facility] URINALYSIS 2020-11-04 04:37:00 [facility] 2020-11-04 04:33:00 Dannielle Idtuan [facility] N-TERMINAL PRO-BNP 2020-11-04 04:33:00 Dannielle Idtuan [facility] CREATINE KINASE 2020-11-04 00:28:00 Sean Posada [facility] CT STROKE ANGIOGRAM HEAD 2020-11-04 00:17:10 Sean Posada [facility] CT STROKE ANGIOGRAM NECK 2020-11-04 00:17:10 Sean Posada [facility] CT STROKE HEAD WO CONTRAST 2020-11-04 00:01:24 Sean Posada [facility] HB CREATININE BLOOD 2020-11-03 23:50:00 Sean Posada [facility] TROPONIN I 2020-11-03 23:49:00 Sean Posada [facility] BASIC METABOLIC PANEL (NA, 2020-11-03 23:49:00 Sean Posada [facility] K, CL, CO2, GLUCOSE, BUN, Medica l Branch CREATININE, CA) CBC WITHOUT DIFF 2020-11-03 23:49:00 Sean Posada [facility] PROTHROMBIN TIME / INR 2020-11-03 23:49:00 Sean Posada [facility] ACTIVATED PARTIAL THRMPLAS 2020-11-03 23:49:00 Sean Posada [facility] [place] TAMMIE Medical Branch COVID-19 (ID NOW RAPID 2020-11-03 23:49:00 Sean Posada [facility] TESTING) Medical Branch LAB ONLY COVID 2020-11-03 23:49:00 Sean Posada [facility] INTERPRETATION Medical Branch HB ECG ROUTINE & RHYTHM 2020-11-03 23:29:45 [facility] Branch POCT GLUCOSE (AUTOMATED) 2020-11-03 23:28:00 [facility] CONSENT/REFUSAL FOR 2020-11-03 22:59:33 Doctor Unassigned, [facility] DIAGNOSIS AND TREATMENT [facility] NOTICE OF PRIVACY 2020-11-03 22:58:50 Doctor Unassigned, [facility] PRACTICES [facility] AGREEMENTS AUTHORIZATIONS 2020-11-03 06:01:00 Doctor Unassigned, [facility] AND IRREVOCABLE [place] [facility] [place] ASSIGNMENTS (FORM 2000) Appendectomy [facility] Cholecystectomy [facility] Encounters Start End Encounter Admission Attending Care Care Encounter Source Date/Time Date/Time Type Type Clinicians Facility Department ID 2019-09-15 Inpatient [facility] MED [id number] [facility] B 00:38:00 2019-05-26 Inpatient E [facility] MED [id number] [facility] H 18:54:00 2023-03-30 2023-03-30 Outpatient [facility] Oliver 15:54:32 15:54:32 [id number] F Abel 2023-03-28 2023-03-28 Outpatient [facility] Oliver 07:42:42 07:42:42 [id number] F Abel 2020-11-15 2020-11-15 Outpatient DAKOTA Edwards [facility]ACL [id number] [facility] 16:57:54 16:57:54 Tang Al [facility] 2020-11-03 2020-11-12 Hospital Sean Posada [facility] 1.2.840 .114 [id number] 17:16:00 19:49:00 Encounter Dannielle [facility] [id number] Jessie Saunders 4.2.7.2. [address] [place] [address] [id number] [facility] 109 (CLC) 2020-11-03 2020-11-12 Hospital Sean Posada [facility] 1.2.840 .114 [id number] Univers 17:16:00 19:49:00 Encounter Sondra Spicer [id number] ity of Jessie Saunders 4.2.7.2. 686 [place] [address] [place] [id number] Medical [facility] 109 Br anch ([facility] 2020-11-03 2020-11-03 Emergency X [facility] ERT [id number] Univers 16:55:00 16:55:00 ity of [facility] 2019-09-15 2019-09-17 Inpatient [facility]Flavo [facility] [id number] Memoria 06:38:00 17:57:00 r Arash [address] [place] Jessy 2019-09-15 2019-09-17 Inpatient [facility]Flavo [facility] [id number] Memoria 06:38:00 17:57:00 r Arash 63 l [place] Jessy 2019-09-15 2019-09-17 Inpatient [facility] [id number] Memoria 06:38:00 17:57:00 r Arash 63 l [place] Jessy 2019-09-15 2019-09-17 Outpatient CHAPARRO SwansonSBam [facility] [id number] 00:38:00 11:57:[address] [facility] 2019-09-15 2019-09-17 Outpatient CHAPARRO SwansonSBam [facility] [id number] 00:38:00 11:57:[address] [facility] 2019-05-26 2019-06-04 Inpatient [facility] [id number] Memoria 17:14:00 20:05:00 r [place] 00 [facility] 2019-05-26 2019-06-04 Inpatient [facility]Flavo [facility] [id number] Memoria 17:14:00 20:05:00 r Arash 00 [facility] 2019-05-26 2019-06-04 Inpatient [facility]Flavo [facility] [id number] Memoria 17:14:00 20:05:00 r [place] 00 [facility] 2019-05-26 2019-06-04 Outpatient Carla Petty [facility] [id number] 12:14:00 15:05:00 Abhijeet 2019-05-26 2019-06-04 Outpatient Carla Petty [facility] [id number] 12:14:00 15:05:00 Abhijeet 2019-05-26 2019-05-26 Emergency nullFlavo [facility] [id number] Memoria 16:58:00 16:58:[address] 2019-05-26 2019-05-26 Emergency nullFlavo [facility] [id number] Memoria 16:58:00 16:58:[address] 2019-05-26 2019-05-26 Emergency nullFlavo [facility] [id number] Memoria 16:58:00 16:58:[address] 2019-05-26 2019-05-26 Outpatient Walker [facility] [id number] 11:58:00 11:58:00 Mp Jyotsna Gerhard 2019-05-26 2019-05-26 Outpatient Ann-Marie [facility] [id number] 11:58:00 11:58:00 Mp Jyotsna Andersonua 2018-11-11 2018-11-11 Outpatient [facility] [id number] Common 14:00:00 14:00:00 [facility] 2018-11-04 2018-11-04 Outpatient [facility] [id number] Common 14:00:00 14:00:00 t [facility] 2018-10-21 2018-10-21 Outpatient [facility] [id number] Common 08:30:00 08:30:00 t [facility] Results Test Description Test Time Test Comments Results Result [facility] e Comments - CT UP EXTREM W/O 2020-11-16 CONT LT 16:39:00 [facility] ASHTYN DOBBINSName: JAMES BOEYR : 1945 Sex: F Name: JAMES BOYER [facility] Ashtyn Dobbins : 1945 Age/S: 75 / F [address] [place] [address] Blvd Unit #: [id number] Loc: [place] [address] Phys: Tang Giordano MD Acct: [id number] Dis Date: Status: REG CLI PHONE #: [phone] Exam Date: 11/16/2020 123 FAX #: [phone] Reason: DISLOCATION OF LT SHOULDER. EXAMS: CPT CODE: [id number] CT UP EXTREM W/[place] [address] [place] left shoulder without contrast. INDICATION: Anterior [...] seen. Emphysematous changes partially included in the yjxqq-fz-vcqj in the left lung. Linear atelectasis or scarring in the left upper lobe noted. IMPRESSION: 1. No acute fracture or dislocation of shoulder. 2. 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 3. 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 SL: SG-H at 1639 Reported and signed by: Fausto Desai M.D. CC: Tang Giordano MD Technologist:Shobha Montelongo, RT(R)(CT) CTDI: DLP: Trnscb Date/Time: 11/16/2020 (1639) [email or web address] PAGE 1 Signed Report VERIFYNOW ASPIRIN TEST 2020-11-10 11:00:00 Test Item Value Reference Range Interpretation Comme nts VerifyNow Aspirin Test (test See Comment ARU code = 6874678190) SHANIA (test code = SHANIA) < 550 [...] and clinical data available to the clinician. [facility] PRUTEST (P2Y12)2020-11-10 10:51:00 Test Item Value Reference Range Interpretation Comments VerifyNow PRUTest See_Comment [Automate d (P2Y12) (test code = message ] The 0100768018) system which generated this result transmitted reference [...] clinician. Lab Interpretation Normal (test code = 02420-2) [facility] METABOLIC PAN[facility] (NA, K, CL, CO2, GLUCOSE, BUN, CREATININE, CA)2020-11-10 10:38:00 Test Item Value Reference Range Interpretation Comments NA (test code = 136 mmol/L 135-145 4785582513) K (test code = 3.8 mmol/L 3.5-5 9590173442) CL (test code = 97 mmol/L 98-108 L 5159216078) CO2 TOTAL (test code = 32 mmol/L 23-31 H 0304317300) AGAP (test code = 2-16 8590863362) BUN (test code = 19 mg/dL 7-23 6551549290) GLUCOSE (test code = 101 mg/dL 70-110 5226909351) CREATININE (test code = 0.89 mg/dL 0.5-1.04 4158820805) CALCIUM (test code = 9.4 mg/dL 8.6-10.6 5672397787) eGFR Calculation mL/min/1.73m2 (Non-) (test code = 4193446629) eGFR Calculation mL/min/1.73m2 () (test code = 2461193645) SHANIA (test code = SHANIA) Association of [...] tests). Lab Interpretation Abnormal (test code = 44910-5) [facility] WITH [id number] 10:31:00 Test Item Value Reference Range Interpretation Comments WBC (test code = See_Comment [Automated 0710-2) message] The sy stem which generated this result transmitted reference range : 4.30 - 11.10 10*3/?L. The reference range was not used to interpret this result as normal/abnormal . RBC (test code = See_Comment [Automated 986-8) message] The sy stem which generated this [...] RDW-SD (test code = 44.4 fL 39-49.9 90844-7) RDW-CV (test code = 13.5 % 12-15.5 788-0) PLT (test code = See_Comment [Automated 777-3) message] The sy stem which generated this result transmitted reference range : 166 - 358 10*3/ ?L. The reference r maría was not used to interpret this result as normal/abnormal . MPV (test code = 10.3 fL 9.5-12.9 31175-6) NRBC/100 WBC (test See_Comment [Automat ed code = 8229413276) message] The system which generated this result transmitted reference range : 0.0 - 10.0 /100 WBCs. The refer ence range was not u sed to interpret th is result as normal/abnormal . NRBC x10^3 (test code <0.01 See_Comment [Auto mated = 6148291681) message] The s ystem which generated this result transmitted reference range : 10*3/?L. The reference range was not used to interpret this result as normal/abnormal . GRAN MAT (NEUT) % 47.5 % (test code = 770-8) IMM GRAN % (test code 0.40 % = 2681512542) LYMPH % (test code = 39.2 % 736-9) MONO % (test code = 10.1 % 5905-5) EOS % (test code = 2.3 % 713-8) BASO % (test code = 0.5 % 706-2) GRAN MAT x10^3(ANC) 4.65 10*3/uL 1.88-7.09 (test code = 0720556055) IMM GRAN x10^3 (test 0.04 10*3/uL 0-0.06 code = 4274347476) LYMPH x10^3 (test code 3.85 10*3/uL 1.32-3.29 H = 731-0) MONO x10^3 (test code 0.99 10*3/uL 0.33-0.92 H = 742-7) EOS x10^3 (test code = 0.23 10*3/uL 0.03-0.39 711-2) BASO x10^3 (test code 0.05 10*3/uL 0.01-0.07 = 704-7) Lab Interpretation Abnormal (test code = 42952-5) [facility] METABOLIC PANEL (NA, K, CL, CO2, GLUCOSE, BUN, CREATININE, CA)2020-11-09 11:04:00 Test Item Value Reference Range Interpretation Comments NA (test code = 135 mmol/L 135-145 5455427510) K (test code = 3.8 mmol/L 3.5-5 1543106583) CL (test code = 98 mmol/L 98-108 0180118653) CO2 TOTAL (test code = 32 mmol/L 23-31 H 5274183353) AGAP (test code = 2-16 0258180045) BUN (test code = 17 mg/dL 7-23 8597314418) GLUCOSE (test code = 94 mg/dL 70-110 8177761402) CREATININE (test code = 0.89 mg/dL 0.5-1.04 0490241064) CALCIUM (test code = 9.3 mg/dL 8.6-10.6 6148041577) eGFR Calculation mL/min/1.73m2 (Non-) (test code = 7834323725) eGFR Calculation mL/min/1.73m2 () (test code = 8923306194) SHANIA (test code = SHANIA) Association of [...] tests). Lab Interpretation Abnormal (test code = 79521-4) [facility] WITH [id number] 10:52:00 Test Item Value Reference Range Interpretation Comments WBC (test code = See_Comment [Automated message] 6690-2) The system [employer] generated this result transmitted ref erence range: 4.30 - 1 1.10 10*3/?L. The re ference range was not u sed to interpret this result as normal/abnor mal. RBC (test code = See_Comment [Automated message] 789-8) The system [employer] generated this result transmitted ref erence range: [...] RDW-SD (test code 43.8 fL 39-49.9 = 46236-2) RDW-CV (test code 13.4 % 12-15.5 = 788-0) PLT (test code = See_Comment [Automated message] 777-3) The system [employer] generated this result transmitted ref erence range: 166 - 35 8 10*3/?L. The re ference range was not u sed to interpret this result as normal/abnor mal. MPV (test code = 10.1 fL 9.5-12.9 00567-8) NRBC/100 WBC (test See_Comment [Automat ed message] code = 6919201542) The syste m which generated this result transmitted ref erence range: 0.0 - 10 .0 /100 WBCs. The refer ence range was not u sed to interpret this result as normal/abnor mal. NRBC x10^3 (test <0.01 See_Comment [Automated message] code = 0677988287) The syste m which generated this result transmitted ref erence range: 10*3/?L. The reference range was not used to interpr et this result as normal/abnormal . GRAN MAT (NEUT) % 53.2 % (test code = 770-8) IMM GRAN % (test 0.40 % code = 5765947422) LYMPH % (test code 31.3 % = 736-9) MONO % (test code 11.5 % = 5905-5) EOS % (test code = 3.1 % 713-8) BASO % (test code 0.5 % = 706-2) GRAN MAT 4.05 10*3/uL 1.88-7.09 x10^3(ANC) (test code = 2685243575) IMM GRAN x10^3 0.03 10*3/uL 0-0.06 (test code = 0297972218) LYMPH x10^3 (test 2.39 10*3/uL 1.32-3.29 code = 731-0) MONO x10^3 (test 0.88 10*3/uL 0.33-0.92 code = 742-7) EOS x10^3 (test 0.24 10*3/uL 0.03-0.39 code = 711-2) BASO x10^3 (test 0.04 10*3/uL 0.01-0.07 code = 704-7) [facility] BRAIN W WO [id number] 19:19:05 Acute-subacute lacunar infarct involving the right [...] global volumeloss and mild ischemic small vessel diseaseUnCedar Park [facility] Center[facility] METABOLIC PANEL (NA, K, CL, CO2, GLUCOSE, BUN, CREATININE, CA)2020-11-08 10:43:00 Test Item Value Reference Range Interpretation Comments NA (test code = 135 mmol/L 135-145 2648254058) K (test code = 3.8 mmol/L 3.5-5 5731397610) CL (test code = 98 mmol/L 98-108 6825724007) CO2 TOTAL (test code = 31 mmol/L 23-31 4967718556) AGAP (test code = 2-16 0667759938) BUN (test code = 18 mg/dL 7-23 0070403798) GLUCOSE (test code = 99 mg/dL 70-110 1329182002) CREATININE (test code 0.95 mg/dL 0.5-1.04 = 8666982987) CALCIUM (test code = 9.4 mg/dL 8.6-10.6 6176445659) eGFR Calculation mL/min/1.73m2 (Non-) (test code = 5602476674) eGFR Calculation mL/min/1.73m2 () (test code = 5206723366) SHANIA (test code = SHANIA) Association of [...] or urine or abnormalities in imaging tests). [facility] WITH [id number] 10:25:00 Test Item Value Reference Range Interpretation [...] RDW-SD (test code = 44.1 fL 39-49.9 08865-9) RDW-CV (test code = 13.3 % 12-15.5 788-0) PLT (test code = See_Comment H [Automated 777-3) message] The sy stem which generated this result transmitted reference range : 166 - 358 10*3/ ?L. The reference r maría was not used to interpret this result as normal/abnormal . MPV (test code = 10.0 fL 9.5-12.9 30569-2) NRBC/100 WBC (test See_Comment [Automat ed code = 0791910099) message] The system which generated this result transmitted reference range : 0.0 - 10.0 /100 WBCs. The refer ence range was not u sed to interpret th is result as normal/abnormal . NRBC x10^3 (test code <0.01 See_Comment [Auto mated = 8350686072) message] The s ystem which generated this result transmitted reference range : 10*3/?L. The reference range was not used to interpret this result as normal/abnormal . GRAN MAT (NEUT) % 54.7 % (test code = 770-8) IMM GRAN % (test code 0.10 % = 0593939581) LYMPH % (test code = 31.2 % 736-9) MONO % (test code = 11.0 % 5905-5) EOS % (test code = 2.6 % 713-8) BASO % (test code = 0.4 % 706-2) GRAN MAT x10^3(ANC) 4.55 10*3/uL 1.88-7.09 (test code = 3700363476) IMM GRAN x10^3 (test <0.03 0-0.06 code = 1602025605) LYMPH x10^3 (test code 2.59 10*3/uL 1.32-3.29 = 731-0) MONO x10^3 (test code 0.91 10*3/uL 0.33-0.92 = 742-7) EOS x10^3 (test code = 0.22 10*3/uL 0.03-0.39 711-2) BASO x10^3 (test code 0.03 10*3/uL 0.01-0.07 = 704-7) Lab Interpretation Abnormal (test code = 72136-6) [facility] COVID [id number] 05:02:00COVID DMT InterpretationInterpretation/Recommendations: Molecular NAAT Tests for [...] COVID-19 testing the patient has had at [facility], including molecular NAAT testing (more commonly known as PCR testing and Rapid ID Now testing) and antibody testing. It does not take into account any testingthat a patient has had outside of the [facility] medical record. [facility] LABORATORY SERVICESCOVID JjxfajjRMHV-MlV-9 Rapid ID NOW (no units) ? ? Date ? Value ? 11/03/2020 ? Not Detected ? [facility] LABORATORY SERVICES [facility] GLUCOSE (AUTOMATED)2020-11-07 14:07:00 Test Item Value Reference Range Interpretation Comments POCT GLU (test code = 3268594416) 93 mg/dL 70-110 Lab Interpretation (test code = Normal 72131-3) [facility] GLUCOSE (AUTOMATED)2020-11-07 02:11:00 Test Item Value Reference Range Interpretation Comments POCT GLU (test code = 7700962362) 109 mg/dL 70-110 Lab Interpretation (test code = Normal 90185-9) [facility] GLUCOSE (AUTOMATED)2020-11-06 22:50:00 Test Item Value Reference Range Interpretation Comments POCT GLU (test code = 0613945988) 119 mg/dL 70-110 H Lab Interpretation (test code = Abnormal 61754-8) [facility] GLUCOSE (AUTOMATED)2020-11-06 18:52:00 Test Item Value Reference Range Interpretation Comments POCT GLU (test code = 2429788972) 101 mg/dL 70-110 Lab Interpretation (test code = Normal 01360-7) [facility] GLUCOSE (AUTOMATED)2020-11-06 14:19:00 Test Item Value Reference Range Interpretation Comments POCT GLU (test code = 4122522708) 100 mg/dL 70-110 Lab Interpretation (test code = Normal 18675-6) [facility] GLUCOSE (AUTOMATED)2020-11-06 02:46:00 Test Item Value Reference Range Interpretation Comments POCT GLU (test code = 1104495778) 89 mg/dL 70-110 Lab Interpretation (test code = Normal 71425-5) [facility] GLUCOSE (AUTOMATED)2020-11-05 23:17:00 Test Item Value Reference Range Interpretation Comments POCT GLU (test code = 9732316958) 101 mg/dL 70-110 Lab Interpretation (test code = Normal 68354-5) [facility] GLUCOSE (AUTOMATED)2020-11-05 18:49:00 Test Item Value Reference Range Interpretation Comments POCT GLU (test code = 7428755671) 110 mg/dL 70-110 Lab Interpretation (test code = Normal 08337-2) [facility] GLUCOSE (AUTOMATED)2020-11-05 15:22:00 Test Item Value Reference Range Interpretation Comments POCT GLU (test code = 3688830006) 100 mg/dL 70-110 Lab Interpretation (test code = Normal 88575-6) [facility] AmericaTROPONIN [id number] 11:16:00 Test Item Value Reference Range Interpretation Comments TROPONIN I (test 0.061 ng/mL See_Comment H [Automated code = 6469714943) message] The system which generated this result [...] ? Lab Interpretation Abnormal (test code = 08823-6) [facility] America[facility] METABOLIC PANEL (NA, K, CL, CO2, GLUCOSE, BUN, CREATININE, CA)2020-11-05 10:30:00 Test Item Value Reference Range Interpretation Comments NA (test code = 138 mmol/L 135-145 1797717170) K (test code = 3.2 mmol/L 3.5-5 L 6603970566) CL (test code = 98 mmol/L 98-108 1754889895) CO2 TOTAL (test code = 32 mmol/L 23-31 H 7580051369) AGAP (test code = 2-16 2324966982) BUN (test code = 29 mg/dL 7-23 H 7908272458) GLUCOSE (test code = 106 mg/dL 70-110 8208809788) CREATININE (test code = 1.18 mg/dL 0.5-1.04 H 7421965847) CALCIUM (test code = 9.3 mg/dL 8.6-10.6 5192353808) eGFR Calculation mL/min/1.73m2 (Non-) (test code = 7282845116) eGFR Calculation mL/min/1.73m2 () (test code = 7725020587) SHANIA (test code = SHANIA) Association of [...] tests). Lab Interpretation Abnormal (test code = 98008-6) [facility] WITH [id number] 10:17:00 Test Item Value Reference Range Interpretation Comments WBC (test code = See_Comment [Automated 9505-2) message] The sy stem which generated this result transmitted reference range : 4.30 - 11.10 10*3/?L. The reference range was not used to interpret this result as normal/abnormal . RBC (test code = See_Comment [Automated 979-6) message] The sy stem which generated this [...] RDW-SD (test code = 45.7 fL 39-49.9 36585-0) RDW-CV (test code = 13.6 % 12-15.5 788-0) PLT (test code = See_Comment H [Automated 777-3) message] The sy stem which generated this result transmitted reference range : 166 - 358 10*3/ ?L. The reference r maría was not used to interpret this result as normal/abnormal . MPV (test code = 10.3 fL 9.5-12.9 15517-2) NRBC/100 WBC (test See_Comment [Automat ed code = 8853015947) message] The system which generated this result transmitted reference range : 0.0 - 10.0 /100 WBCs. The refer ence range was not u sed to interpret th is result as normal/abnormal . NRBC x10^3 (test code <0.01 See_Comment [Auto mated = 7490556676) message] The s ystem which generated this result transmitted reference range : 10*3/?L. The reference range was not used to interpret this result as normal/abnormal . GRAN MAT (NEUT) % 53.2 % (test code = 770-8) IMM GRAN % (test code 0.40 % = 8731579617) LYMPH % (test code = 31.6 % 736-9) MONO % (test code = 10.8 % 5905-5) EOS % (test code = 3.4 % 713-8) BASO % (test code = 0.6 % 706-2) GRAN MAT x10^3(ANC) 5.24 10*3/uL 1.88-7.09 (test code = 6321820102) IMM GRAN x10^3 (test 0.04 10*3/uL 0-0.06 code = 8916138403) LYMPH x10^3 (test code 3.11 10*3/uL 1.32-3.29 = 731-0) MONO x10^3 (test code 1.06 10*3/uL 0.33-0.92 H = 742-7) EOS x10^3 (test code = 0.33 10*3/uL 0.03-0.39 711-2) SARAHO x10^3 (test code 0.06 10*3/uL 0.01-0.07 = 704-7) Lab Interpretation Abnormal (test code = 01616-7) [facility] AmericaMOON [id number] 03:13:00 Test Item Value Reference Range Interpretation Comments TROPONIN I (test 0.085 ng/mL See_Comment H [Automated code = 1839291418) message] The system which generated this result [...] ? Lab Interpretation Abnormal (test code = 66835-4) [facility] AmericaGLYCOSYLATED HEMOGLOBIN (A1C)2020-11-04 21:45:00 Test Item Value Reference Range Interpretation Comments HGB A1C (test code = 5.2 % 4-6 4548-4) SHANIA (test code = SHANIA) %A1C (NGSP) Interpretation (ADA)4.8-5.6 ? ? Normal or (Non-Diabetic Range)5.7-6.4 ? ? Increased Risk (Pre-Diabetic)>6.5 ?Diabetes Indicated Lab Interpretation Normal (test code = 96883-3) [facility] AmericaLIPID PANEL (54531)(TOTAL CHOLESTEROL, TRIGLYCERIDES, HDL)2020-11-04 14:39:00 Test Item Value Reference Range Interpretation Comments CHOL (test code = 139 mg/dL 120-200 8091197763) HDL (test code = 36 mg/dL >50 L 3106636179) HDLC RATIO (test code = See_Comment [Au tomated message] 6372487896) The system [employer] generated this result transmit maria c reference range : <=4.5. The refe rence range was not u sed to interpret th is result as normal/abnormal . TRIG (test code = 99 mg/dL 30-170 0041721744) LDL CHOL (test code = 83 mg/dL See_Comment [Auto mated message] 71853-8) The system [employer] generated this result transmit maria c reference range : <=160. The refe rence range was not u sed to interpret th is result as normal/abnormal . VLDL (test code = 20 mg/dL 5-60 7992020951) Lab Interpretation (test Abnormal code = 98129-0) [facility] AmericaPOCT [id number] 14:29:00 Test Item Value Reference Range Interpretation Comments POCT Creatinine (test code = 1.7 mg/dL 0.5-1.1 H 2928247336) Lab Interpretation (test code = Abnormal 48122-2) [facility] AmericaTROPONIN [id number] 05:41:00 Test Item Value Reference Range Interpretation Comments TROPONIN I (test 0.132 ng/mL See_Comment H [Automated code = 5524428157) message] The system which generated this result [...] ? Lab Interpretation Abnormal (test code = 19342-3) [facility] AmericaN-TERMINAL RHA-[id number] 05:15:00 Test Item Value Reference Range Interpretation Comments NT-proBNP (test code 820 pg/mL See_Comment H [Autom ated = 0423731305) message] The system which generated this result transmitted reference range : <=450. The reference range was not used to interpret this result as normal/abnormal . SHANIA (test code = SHANIA) Biotin has been reported to cause a negative bias, interpret results relative to patient's use of biotin. Lab Interpretation Abnormal (test code = 93182-2) [facility] AmericaURINALYSIS2021-02-18 05:06:00 Test Item Value Reference Range Interpretation Comments APPEARANCE (test code = Clear Clear 8953725424) COLOR (test code = Yellow Yellow 6585766752) PH (test code = 4.8-8.0 8905331549) SP GRAVITY (test code = 1.003-1.030 H 8366244025) GLU U QUAL (test code = Normal Normal 1649813572) BLOOD (test code = Negative Negative 1456671055) KETONES (test code = Negative Negative 1161296046) PROTEIN (test code = Negative Negative 2887-8) UROBILIN (test code = Normal Normal 3185159099) BILIRUBIN (test code = Negative Negative 2652888014) NITRITE (test code = Positive Negative A 5554524448) LEUK CUHY (test code = 75/uL Negative A 2802654942) RBC/HPF (test code = See_Comment [Autom ated message] 7895081777) The system [employer] generated this result transmitted ref erence range: 0 - 3 HP F. The reference range was not used to int erpret this result as normal/abnormal . WBC/HPF (test code = See_Comment H [Autom ated message] 3851110526) The system [employer] generated this result transmitted ref erence range: 0 - 5 HP F. The reference range was not used to int erpret this result as normal/abnormal . BACTERIA (test code = Few Negative A 6358686512) MUCOUS (test code = Slight Negative LPF A 8060848693) SQ EPITH (test code = <1 HPF 5015917959) HYAL CAST (test code = See_Comment H [Aut omated message] 3479828446) The system [employer] generated this result transmitted ref erence range: <=2 LPF. The reference range was not used to int erpret this result as normal/abnormal . Lab Interpretation (test Abnormal code = 06926-9) [facility] AmericaCT STROKE ANGIOGRAM [id number] 01:07:06 No proximal large vessel occlusion or [...] ostium noted. Otherwise,no flow-limiting extra cranial stenosis identified.[facility] AmericaCT STROKE ANGIOGRAM [id number] 01:07:06 No proximal large vessel occlusion or [...] ostium noted. 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 The reference range was not used to interpr et this result as normal/abnormal . SHANIA (test code = SHANIA) The [facility] patient population mean normal value for aPTT is 30 seconds. Lab Interpretation Normal (test code = 93851-2) [facility] AmericaProthrombin Time / INR - Code Hpexue2723-07-80 00:23:00 Test Item Value Reference Range Interpretation [...] tions. Lab Interpretation (test Normal code = 21825-9) [facility] AmericaTroponin I - Code [id number] 00:17:00 Test Item Value Reference Range Interpretation Comments TROPONIN I (test 0.130 ng/mL See_Comment H [Automated code = 2786105098) message] The system which generated this result [...] ? Lab Interpretation Abnormal (test code = 81529-0) [facility] AmericaCOVID-19 (ID NOW RAPID TESTING)2020-11-04 00:10:00 Test Item Value Reference Range Interpretation Comments SARS-CoV-2 Rapid ID NOW Not Detected Not Detected (test code = 99009-4) SHANIA (test code = SHANIA) ID NOW COVID-19 Assay is an isothermal nucleic acid amplification test intended for the qualitative detection of nucleic acid from SARS-CoV-2 viral RNA in nasopharyngeal (JUNIOR SYSTEMS ANALYST) specimens. It is used under Emergency Use [...] indicated. Lab Interpretation Normal (test code = 77992-0) [facility]Bab[facility] Met[facility] Panel (NA, K, CL, CO2, Glucose, BUN, Creatinine, CA) - Code [id number] 00:06:00 Test Item Value Reference Range Interpretation Comments NA (test code = 137 mmol/L 135-145 1530988267) K (test code = 3.1 mmol/L 3.5-5 L 8947836906) CL (test code = 91 mmol/L 98-108 L 5669230254) CO2 TOTAL (test code = 36 mmol/L 23-31 H 1316408661) AGAP (test code = 2-16 4559770118) BUN (test code = 30 mg/dL 7-23 H 0716151763) GLUCOSE (test code = 109 mg/dL 70-110 1979459820) CREATININE (test code = 1.70 mg/dL 0.5-1.04 H 1611993797) CALCIUM (test code = 9.4 mg/dL 8.6-10.6 8375322420) eGFR Calculation mL/min/1.73m2 (Non-) (test code = 5237182384) eGFR Calculation mL/min/1.73m2 () (test code = 4044368595) SHANIA (test code = SHANIA) Association of [...] tests). Lab Interpretation Abnormal (test code = 11939-1) [facility] without Diff - Code [id number] 23:55:00 Test Item Value Reference Range Interpretation Comments WBC (test code = 6690-2) See_Comment H [A utomated message] The system [employer] generated this result transmit maria c reference range : 4.30 - 11.10 10*3/?L. The reference range was not used to interpret this result as normal/abnormal . RBC (test code = 789-8) See_Comment [Au tomated message] The system [employer] generated this result transmit maria c reference [...] See_Comment H [Au tomated message] The system [employer] generated this result transmit maria c reference range : 166 - 358 10*3/?L. The reference range was not used to interpret this result as normal/abnormal . MPV (test code = 10.4 fL 9.5-12.9 35684-6) RDW-CV (test code = 13.6 % 12-15.5 788-0) RDW-SD (test code = 45.1 fL 39-49.9 78593-7) NRBC x10^3 (test code = <0.01 See_Comment [Au tomated message] 8035178509) The system [employer] generated this result transmit maria c reference range : 10*3/?L. The reference range was not used to interpret this result as normal/abnormal . NRBC/100 WBC (test code See_Comment [Au tomated message] = 6185616470) The system [facility] generated this result transmit maria c reference range : 0.0 - 10.0 /100 WBC s. The reference r maría was not used to interpret this result as normal/abnormal . IPF % (test code = 4915013314) Lab Interpretation (test Abnormal code = 43199-9) [facility] AmericaPO[facility] GLUCOSE (AUTOMATED)2020-11-03 23:36:00 Test Item Value Reference Range Interpretation Comments POCT GLU (test code = 6712604118) 123 mg/dL 70-110 H Lab Interpretation (test code = Abnormal 98590-9) [facility]2019-12-31 00:06:00 Test Item Value Reference Range Interpretation Comments Ammonia (test code = Ammonia) 12.0 [facility]biximmIQMEGNPLHU6211-77-86 00:06:00 Test Item Value Reference Range Interpretation Comments D-Dimer (test code = D-Dimer) 3.11 [facility]2019-12-31 00:06:00 Test Item Value Reference Range Interpretation Comments Ammonia (test code = Ammonia) 12.0 [place] 111959-12-31 00:06:00 Test Item Value Reference Range Interpretation Comments D-Dimer (test code = D-Dimer) 3.11 [facility]2019-12-31 00:06:00 Test Item Value Reference Range Interpretation Comments Ammonia (test code = Ammonia) 12.0 [place] 111959-12-31 00:06:00 Test Item Value Reference Range Interpretation Comments D-Dimer (test code = D-Dimer) 3.11 [facility]2019-12-31 00:06:00 Test Item Value Reference Range Interpretation Comments Ammonia (test code = Ammonia) 12.0 [facility] CentralBuvwlnsQXBAQMNQKH0066-16-72 00:06:00 Test Item Value Reference Range Interpretation Comments D-Dimer (test code = D-Dimer) 3.11 [facility]2019-12-31 00:06:00 Test Item Value Reference Range Interpretation Comments Ammonia (test code = Ammonia) 12.0 [facility] CentralZbrkqkuYECWPXFSQZ6354-31-18 00:06:00 Test Item Value Reference Range Interpretation Comments D-Dimer (test code = D-Dimer) 3.11 [facility]2019-12-31 00:06:00 Test Item Value Reference Range Interpretation Comments Ammonia (test code = Ammonia) 12.0 [place] 111959-12-31 00:06:00 Test Item Value Reference Range Interpretation Comments D-Dimer (test code = D-Dimer) 3.11 [facility]2019-12-31 00:06:00 Test Item Value Reference Range Interpretation Comments Ammonia (test code = Ammonia) 12.0 [place] 111959-12-31 00:06:00 Test Item Value Reference Range Interpretation Comments D-Dimer (test code = D-Dimer) 3.11 [facility] [id number] 00:06:00 Test Item Value Reference Range Interpretation Comments Ammonia (test code = Ammonia) 12.0 [facility] CenterGzfmpizRGSRQAXHBK3965-82-48 00:06:00 Test Item Value Reference Range Interpretation Comments D-Dimer (test code = D-Dimer) 3.11 [facility] [id number] 15:23:00 Test Item Value Reference Range Interpretation Comments Troponin-I (test code 0.16 See_Comment [Auto mated message] The = Troponin-I) system which g enerated this result transmit maria c reference range : <=0.40. The reference r maría was not used to interpr et this result as karthikeyan l/abnormal. [facility]2019-12-30 15:23:00 Test Item Value Reference Range Interpretation Comments Troponin-I (test code 0.16 See_Comment [Auto mated message] The = Troponin-I) system which g enerated this result transmit maria c reference range : <=0.40. The reference r maría was not used to interpr et this result as karthikeyan l/abnormal. [facility] [id number] 15:23:00 Test Item Value Reference Range Interpretation Comments Troponin-I (test code 0.16 See_Comment [Auto mated message] The = Troponin-I) system which g enerated this result transmit maria c reference range : <=0.40. The reference r maría was not used to interpr et this result as karthikeyan l/abnormal. [facility] [id number] 15:23:00 Test Item Value Reference Range Interpretation Comments Troponin-I (test code 0.16 See_Comment [Auto mated message] The = Troponin-I) system which g enerated this result transmit maria c reference range : <=0.40. The reference r maría was not used to interpr et this result as karthikeyan l/abnormal. [facility] [id number] 15:23:00 Test Item Value Reference Range Interpretation Comments Troponin-I (test code 0.16 See_Comment [Auto mated message] The = Troponin-I) system which g enerated this result transmit maria c reference range : <=0.40. The reference r maría was not used to interpr et this result as karthikeyan l/abnormal. [facility] ICYVGIT1305-[facility] 15:23:00 Test Item Value Reference Range Interpretation Comments Troponin-I (test code 0.16 See_Comment [Auto mated message] The = Troponin-I) system which g enerated this result transmit maria c reference range : <=0.40. The reference r maría was not used to interpr et this result as karthikeyan l/abnormal. [facility] [id number] 15:23:00 Test Item Value Reference Range Interpretation Comments Troponin-I (test code 0.16 See_Comment [Auto mated message] The = Troponin-I) system which g enerated this result transmit maria c reference range : <=0.40. The reference r maría was not used to interpr et this result as karthikeyan l/abnormal. [facility] [id number] 15:23:00 Test Item Value Reference Range Interpretation Comments Troponin-I (test code 0.16 See_Comment [Auto mated message] The = Troponin-I) system which g enerated this result transmit maria c reference range : <=0.40. The reference r maría was not used to interpr et this result as karthikeyan l/abnormal. [facility] - [id number] 12:33:00 Test Item Value Reference Range Interpretation Comments Source Strep (test code Urine *NA*(09/15/19 = Source Strep) 6:33 AM) [facility] - [id number] 12:33:00 Test Item Value Reference Range Interpretation Comments Strep pneumoniae Ag Negative (09/15/19 (test code = Strep 6:33 AM) pneumoniae Ag) [facility] [id number] 12:33:00 Test Item Value Reference Range Interpretation Comments Source Respiratory Nasophrngl Swb Panel PCR (test code = *NA*(09/15/19 6:33 AM) Source Respiratory Panel PCR) [facility] [id number] 12:33:00 Test Item Value Reference Range Interpretation Comments Influenza A PCR (test Negative *NA*(09/15/19 code = Influenza A PCR) 6:33 AM) [facility] [id number] 12:33:00 Test Item Value Reference Range Interpretation Comments Influenza B PCR (test Negative *NA*(09/15/19 code = Influenza B PCR) 6:33 AM) [facility] [id number] 12:33:00 Test Item Value Reference Range Interpretation Comments RSV PCR (test code = Negative *NA*(09/15/19 RSV PCR) 6:33 AM) [facility] [id number] 12:33:00 Test Item Value Reference Range Interpretation Comments Source Strep (test code Urine *NA*(09/15/19 = Source Strep) 6:33 AM) [facility] [id number] 12:33:00 Test Item Value Reference Range Interpretation Comments Strep pneumoniae Ag Negative (09/15/19 (test code = Strep 6:33 AM) pneumoniae Ag) [facility]2019-12-30 12:33:00 Test Item Value Reference Range Interpretation Comments Source Respiratory Nasophrngl Swb Panel PCR (test code = *NA*(09/15/19 6:33 AM) Source Respiratory Panel PCR) [facility]2019-12-30 12:33:00 Test Item Value Reference Range Interpretation Comments Influenza A PCR (test Negative *NA*(09/15/19 code = Influenza A PCR) 6:33 AM) [facility]2019-12-30 12:33:00 Test Item Value Reference Range Interpretation Comments Influenza B PCR (test Negative *NA*(09/15/19 code = Influenza B PCR) 6:33 AM) [facility]2019-12-30 12:33:00 Test Item Value Reference Range Interpretation Comments RSV PCR (test code = Negative *NA*(09/15/19 RSV PCR) 6:33 AM) [facility] [id number] 12:33:00 Test Item Value Reference Range Interpretation Comments Source Strep (test code Urine *NA*(09/15/19 = Source Strep) 6:33 AM) [facility] [id number] 12:33:00 Test Item Value Reference Range Interpretation Comments Strep pneumoniae Ag Negative (09/15/19 (test code = Strep 6:33 AM) pneumoniae Ag) [facility]2019-12-30 12:33:00 Test Item Value Reference Range Interpretation Comments Source Respiratory Nasophrngl Swb Panel PCR (test code = *NA*(09/15/19 6:33 AM) Source Respiratory Panel PCR) [facility] [id number] 12:33:00 Test Item Value Reference Range Interpretation Comments Influenza A PCR (test Negative *NA*(09/15/19 code = Influenza A PCR) 6:33 AM) [facility] [id number] 12:33:00 Test Item Value Reference Range Interpretation Comments Influenza B PCR (test Negative *NA*(09/15/19 code = Influenza B PCR) 6:33 AM) [facility]2019-12-30 12:33:00 Test Item Value Reference Range Interpretation Comments RSV PCR (test code = Negative *NA*(09/15/19 RSV PCR) 6:33 AM) [facility] [id number] 12:33:00 Test Item Value Reference Range Interpretation Comments Source Strep (test code Urine *NA*(09/15/19 = Source Strep) 6:33 AM) [facility] [id number] 12:33:00 Test Item Value Reference Range Interpretation Comments Strep pneumoniae Ag Negative (09/15/19 (test code = Strep 6:33 AM) pneumoniae Ag) [facility]2019-12-30 12:33:00 Test Item Value Reference Range Interpretation Comments Source Respiratory Nasophrngl Swb Panel PCR (test code = *NA*(09/15/19 6:33 AM) Source Respiratory Panel PCR) [facility]2019-12-30 12:33:00 Test Item Value Reference Range Interpretation Comments Influenza A PCR (test Negative *NA*(09/15/19 code = Influenza A PCR) 6:33 AM) [facility] [id number] 12:33:00 Test Item Value Reference Range Interpretation Comments Influenza B PCR (test Negative *NA*(09/15/19 code = Influenza B PCR) 6:33 AM) [facility] [id number] 12:33:00 Test Item Value Reference Range Interpretation Comments RSV PCR (test code = Negative *NA*(09/15/19 RSV PCR) 6:33 AM) [facility] [id number] 12:33:00 Test Item Value Reference Range Interpretation Comments Source Strep (test code Urine *NA*(09/15/19 = Source Strep) 6:33 AM) [facility] [id number] 12:33:00 Test Item Value Reference Range Interpretation Comments Strep pneumoniae Ag Negative (09/15/19 (test code = Strep 6:33 AM) pneumoniae Ag) [facility]2019-12-30 12:33:00 Test Item Value Reference Range Interpretation Comments Source Respiratory Nasophrngl Swb Panel PCR (test code = *NA*(09/15/19 6:33 AM) Source Respiratory Panel PCR) [facility]2019-12-30 12:33:00 Test Item Value Reference Range Interpretation Comments Influenza A PCR (test Negative *NA*(09/15/19 code = Influenza A PCR) 6:33 AM) [facility] [id number] 12:33:00 Test Item Value Reference Range Interpretation Comments Source Strep (test code Urine *NA*(09/15/19 = Source Strep) 6:33 AM) [facility] [id number] 12:33:00 Test Item Value Reference Range Interpretation Comments Strep pneumoniae Ag Negative (09/15/19 (test code = Strep 6:33 AM) pneumoniae Ag) [facility]2019-12-30 12:33:00 Test Item Value Reference Range Interpretation Comments Source Respiratory Nasophrngl Swb Panel PCR (test code = *NA*(09/15/19 6:33 AM) Source Respiratory Panel PCR) [facility]2019-12-30 12:33:00 Test Item Value Reference Range Interpretation Comments Influenza A PCR (test Negative *NA*(09/15/19 code = Influenza A PCR) 6:33 AM) [facility]2019-12-30 12:33:00 Test Item Value Reference Range Interpretation Comments Influenza B PCR (test Negative *NA*(09/15/19 code = Influenza B PCR) 6:33 AM) [facility]2019-12-30 12:33:00 Test Item Value Reference Range Interpretation Comments RSV PCR (test code = Negative *NA*(09/15/19 RSV PCR) 6:33 AM) [facility] [id number] 12:33:00 Test Item Value Reference Range Interpretation Comments Influenza B PCR (test Negative *NA*(09/15/19 code = Influenza B PCR) 6:33 AM) [facility] [id number] 12:33:00 Test Item Value Reference Range Interpretation Comments RSV PCR (test code = Negative *NA*(09/15/19 RSV PCR) 6:33 AM) [facility] [id number] 12:33:00 Test Item Value Reference Range Interpretation Comments Source Strep (test code Urine *NA*(09/15/19 = Source Strep) 6:33 AM) [facility] [id number] 12:33:00 Test Item Value Reference Range Interpretation Comments Strep pneumoniae Ag Negative (09/15/19 (test code = Strep 6:33 AM) pneumoniae Ag) [facility]2019-12-30 12:33:00 Test Item Value Reference Range Interpretation Comments Source Respiratory Nasophrngl Swb Panel PCR (test code = *NA*(09/15/19 6:33 AM) Source Respiratory Panel PCR) [facility]2019-12-30 12:33:00 Test Item Value Reference Range Interpretation Comments Influenza A PCR (test Negative *NA*(09/15/19 code = Influenza A PCR) 6:33 AM) [facility] [id number] 12:33:00 Test Item Value Reference Range Interpretation Comments Influenza B PCR (test Negative *NA*(09/15/19 code = Influenza B PCR) 6:33 AM) [facility] [id number] 12:33:00 Test Item Value Reference Range Interpretation Comments RSV PCR (test code = Negative *NA*(09/15/19 RSV PCR) 6:33 AM) [facility] [id number] 12:33:00 Test Item Value Reference Range Interpretation Comments Source Strep (test code Urine *NA*(09/15/19 = Source Strep) 6:33 AM) [facility]BA[facility] - [id number] 12:33:00 Test Item Value Reference Range Interpretation Comments Strep pneumoniae Ag Negative (09/15/19 (test code = Strep 6:33 AM) pneumoniae Ag) [facility] [id number] 12:33:00 Test Item Value Reference Range Interpretation Comments Source Respiratory Nasophrngl Swb Panel PCR (test code = *NA*(09/15/19 6:33 AM) Source Respiratory Panel PCR) [facility] [id number] 12:33:00 Test Item Value Reference Range Interpretation Comments Influenza A PCR (test Negative *NA*(09/15/19 code = Influenza A PCR) 6:33 AM) [facility] [id number] 12:33:00 Test Item Value Reference Range Interpretation Comments Influenza B PCR (test Negative *NA*(09/15/19 code = Influenza B PCR) 6:33 AM) [facility] [id number] 12:33:00 Test Item Value Reference Range Interpretation Comments RSV PCR (test code = Negative *NA*(09/15/19 RSV PCR) 6:33 AM) [facility] [id number] 10:31:00 Test Item Value Reference Range Interpretation Comments Vitamin B12 Lvl (test code = Vitamin [phone] B12 Lvl) [facility] CenterCARDIAC [id number] 10:31:00 Test Item Value Reference Range Interpretation Comments Troponin-I (test code 0.18 See_Comment [Auto mated message] The = Troponin-I) system which g enerated this result transmit maria c reference range : <=0.40. The reference r maría was not used to interpr et this result as karthikeyan l/abnormal. [facility] CenterCHEM [id number] 10:31:00 Test Item Value Reference Range Interpretation Comments Phosphorus (test code = Phosphorus) 4.4 2.5-4.5 [facility] CenterCHEM [id number] 10:31:00 Test Item Value Reference Range Interpretation Comments Magnesium Lvl (test code = Magnesium 2.2 1.8-2.4 Lvl) [facility] CenterCHEM [id number] 10:31:00 Test Item Value Reference Range Interpretation Comments Glucose Lvl (test code = Glucose Lvl) 146 70-99 [facility]2019-12-30 10:31:00 Test Item Value Reference Range Interpretation Comments BUN (test code = BUN) 14 7-22 [facility]2019-12-30 10:31:00 Test Item Value Reference Range Interpretation Comments Creatinine Lvl (test code = Creatinine 0.94 0.50-1.40 Lvl) [facility]2019-12-30 10:31:00 Test Item Value Reference Range Interpretation Comments Sodium Lvl (test code = Sodium Lvl) 140 135-145 [facility]2019-12-30 10:31:00 Test Item Value Reference Range Interpretation Comments Potassium Lvl (test code = Potassium 3.9 3.5-5.1 Lvl) [facility]2019-12-30 10:31:00 Test Item Value Reference Range Interpretation Comments Chloride Lvl (test code = Chloride Lvl) 103 95-109 [facility]2019-12-30 10:31:00 Test Item Value Reference Range Interpretation Comments CO2 (test code = CO2) 28 24-32 [facility]2019-12-30 10:31:00 Test Item Value Reference Range Interpretation Comments Calcium Lvl (test code = Calcium Lvl) 9.2 8.5-10.5 [facility]2019-12-30 10:31:00 Test Item Value Reference Range Interpretation Comments eGFR (test code = eGFR) 59 [facility]2019-12-30 10:31:00 Test Item Value Reference Range Interpretation Comments AGAP (test code = AGAP) 12.9 10.0-20.0 [facility]2019-12-30 10:31:00 Test Item Value Reference Range Interpretation Comments Procalcitonin Lvl (test 3.83 See_Comment [Au tomated message] code = Procalcitonin Lvl) e system which generated this result transmitted ref erence range: <=0.10. The reference range was not used to interpr et this result as normal/abnormal . [facility]2019-12-30 10:31:00 Test Item Value Reference Range Interpretation Comments Lactic Acid Lvl (test code = Lactic 1.5 0.5-2.2 Acid Lvl) [facility]KcxmlueECMXPGVDJS2457-96-54 10:31:00 Test Item Value Reference Range Interpretation Comments Segs (test code = Segs) 91.2 45.0-75.0 [facility] CentralHhahmarOUIOQSLGHL1123-65-32 10:31:00 Test Item Value Reference Range Interpretation Comments Lymphocytes (test code = Lymphocytes) 7.5 20.0-40.0 [facility] CentralFrwxyatSEDIXOSAHA6071-28-19 10:31:00 Test Item Value Reference Range Interpretation Comments Monocytes (test code = Monocytes) 1.2 2.0-12.0 [facility] CentralBlzlebwUNTYMGOMGV1879-18-64 10:31:00 Test Item Value Reference Range Interpretation Comments Basophils (test code = 0.1 See_Comment [Aut omated message] The Basophils) system which ge nerated this result tra nsmitted reference range : <=1.0. The reference r maría was not used to int erpret this result as normal/abnormal . [facility] CentralGwsdzkiUEMSXSRXUR8187-49-77 10:31:00 Test Item Value Reference Range Interpretation Comments Neutrophils # (test code = Neutrophils 9.4 1.5-8.1 #) [facility] CentralQzygjgqANZKQIYZGD9407-22-49 10:31:00 Test Item Value Reference Range Interpretation Comments Lymphocytes # (test code = Lymphocytes 0.8 1.0-5.5 #) [facility] CentralYgxiogwDWFUYNBPCU6284-41-54 10:31:00 Test Item Value Reference Range Interpretation Comments Monocytes # (test code 0.1 See_Comment [Aut omated message] The = Monocytes #) system which generated this result tra nsmitted reference range : <=0.8. The reference r maría was not used to int erpret this result as normal/abnormal . [facility] CentralXknczfxYXCUMKSAAU6766-82-76 10:31:00 Test Item Value Reference Range Interpretation Comments WBC (test code = WBC) 10.3 3.7-10.4 [facility] CentralUfqlsngGFGNBYWPNU4022-26-21 10:31:00 Test Item Value Reference Range Interpretation Comments RBC (test code = RBC) 4.13 4.20-5.40 [facility] CentralDeurhcfYDXGDLMFWW8076-20-89 10:31:00 Test Item Value Reference Range Interpretation Comments Hgb (test code = Hgb) 12.8 12.0-16.0 [facility] CentralWrxylfiYKJTIMSUSC4555-81-37 10:31:00 Test Item Value Reference Range Interpretation Comments Hct (test code = Hct) 38.6 36.0-48.0 [facility] CentralKqqtivhZTZSCIWPJW1996-62-69 10:31:00 Test Item Value Reference Range Interpretation Comments MCV (test code = MCV) 93.7 80.0-98.0 [facility] CentralNaiuwpiYLHXWZZQEW5910-48-34 10:31:00 Test Item Value Reference Range Interpretation Comments MCH (test code = MCH) 31.0 pg 27.0-31.0 [facility] CentralJmedxweHGVREWPCWI8487-89-61 10:31:00 Test Item Value Reference Range Interpretation Comments MCHC (test code = MCHC) 33.1 32.0-36.0 [facility] CentralFvsktcmBAGBPAEXCE5912-03-91 10:31:00 Test Item Value Reference Range Interpretation Comments RDW (test code = RDW) 15.4 11.5-14.5 [facility] CentralYnlcrllXDPLONUVQT0397-93-18 10:31:00 Test Item Value Reference Range Interpretation Comments Platelet (test code = Platelet) 388 133-450 [facility] CentralOkjbgyjQAJQFRSTNL1126-08-80 10:31:00 Test Item Value Reference Range Interpretation Comments MPV (test code = MPV) 8.3 7.4-10.4 [facility] CentralRhsanpwKBVCSXQJTV5781-34-39 10:31:00 Test Item Value Reference Range Interpretation Comments RBC (test code = RBC) 4.13 4.20-5.40 [facility]QwumnpfDQXTAC1350-34-26 10:31:00 Test Item Value Reference Range Interpretation Comments CHD Risk (test code = CHD Risk) 2.87 1 3.90-5.80 [facility] HospitalHjfbehuPHUIBU6078-28-19 10:31:00 Test Item Value Reference Range Interpretation Comments Trig (test code = Trig) 52 [facility] HospitalJfgdwhiYFIOXE8835-42-13 10:31:00 Test Item Value Reference Range Interpretation Comments Chol (test code = Chol) 172 [facility] HospitalMpeyrgqHNLVRI2202-43-36 10:31:00 Test Item Value Reference Range Interpretation Comments HDL (test code = HDL) 60 [facility] HospitalTrznpnhBVMDOF9930-56-35 10:31:00 Test Item Value Reference Range Interpretation Comments LDL (Calculated) (test code = LDL 102 (Calculated)) [facility] HospitalBshktylODIOEY5150-48-73 10:31:00 Test Item Value Reference Range Interpretation Comments VLDL (test code = VLDL) 10 1 [facility] [id number] 10:31:00 Test Item Value Reference Range Interpretation Comments Hgb A1C (test code = Hgb A1C) 4.9 [facility] HospitalBmzmruaCXBTYOUIOF7102-87-54 10:31:00 Test Item Value Reference Range Interpretation Comments Hgb (test code = Hgb) 12.8 12.0-16.0 [facility] HospitalOsxqwauHORIBALVBD5450-60-52 10:31:00 Test Item Value Reference Range Interpretation Comments Hct (test code = Hct) 38.6 36.0-48.0 [facility] CentralNwiugssYPQOZZGCOZ7382-55-59 10:31:00 Test Item Value Reference Range Interpretation Comments MCV (test code = MCV) 93.7 80.0-98.0 [facility] HospitalTeyrdmpOQUKHZLNLJ0684-96-70 10:31:00 Test Item Value Reference Range Interpretation Comments MCH (test code = MCH) 31.0 pg 27.0-31.0 [facility] HospitalSfhywssFSVIVPOLLC1630-53-77 10:31:00 Test Item Value Reference Range Interpretation Comments MCHC (test code = MCHC) 33.1 32.0-36.0 [facility] CentralIwquqyeNGGZVCXTGG6007-02-68 10:31:00 Test Item Value Reference Range Interpretation Comments RDW (test code = RDW) 15.4 11.5-14.5 [facility] CentralBrqwnphKCMRAXQMJL8249-48-18 10:31:00 Test Item Value Reference Range Interpretation Comments Platelet (test code = Platelet) 388 133-450 [facility] CentralZsqeybbZWYIQSDQQC1606-41-70 10:31:00 Test Item Value Reference Range Interpretation Comments MPV (test code = MPV) 8.3 7.4-10.4 [facility] HospitalSmmhhrzFNAIUG0042-70-26 10:31:00 Test Item Value Reference Range Interpretation Comments CHD Risk (test code = CHD Risk) 2.87 1 3.90-5.80 [facility] CenterKepxycwGSDBQR4719-29-06 10:31:00 Test Item Value Reference Range Interpretation Comments Trig (test code = Trig) 52 [facility] CenterGwctbwkDKGYGE5208-62-06 10:31:00 Test Item Value Reference Range Interpretation Comments Chol (test code = Chol) 172 [facility] CenterRyduomeMXEYLK8985-86-98 10:31:00 Test Item Value Reference Range Interpretation Comments HDL (test code = HDL) 60 [facility] CenterQfovijdUEUJXE0631-82-39 10:31:00 Test Item Value Reference Range Interpretation Comments LDL (Calculated) (test code = LDL 102 (Calculated)) [facility] CenterLmsmfvvWVCVTV9157-48-98 10:31:00 Test Item Value Reference Range Interpretation Comments VLDL (test code = VLDL) 10 1 [facility] TYBMFAHHM5496-09-19 10:31:00 Test Item Value Reference Range Interpretation Comments Hgb A1C (test code = Hgb A1C) 4.9 [facility] CWEYV0467-47-64 10:31:00 Test Item Value Reference Range Interpretation Comments Vitamin B12 Lvl (test code = Vitamin [phone] B12 Lvl) [facility] CenterCARDIAC UZXFJVO0793-60-26 10:31:00 Test Item Value Reference Range Interpretation Comments Troponin-I (test code 0.18 See_Comment [Auto mated message] The = Troponin-I) system which g enerated this result transmit maria c reference range : <=0.40. The reference r maría was not used to interpr et this result as karthikeyan l/abnormal. [facility] HospitalMind Candy [id number] 10:31:00 Test Item Value Reference Range Interpretation Comments Phosphorus (test code = Phosphorus) 4.4 2.5-4.5 [facility] CenterI Like My Waitress [id number] 10:31:00 Test Item Value Reference Range Interpretation Comments Magnesium Lvl (test code = Magnesium 2.2 1.8-2.4 Lvl) [facility] CenterI [facility] My [facility] [id number] 10:31:00 Test Item Value Reference Range Interpretation Comments Glucose Lvl (test code = Glucose Lvl) 146 70-99 [facility] CenterI [facility] My [facility] [id number] 10:31:00 Test Item Value Reference Range Interpretation Comments BUN (test code = BUN) 14 7-22 [facility] CenterI [facility] [id number] 10:31:00 Test Item Value Reference Range Interpretation Comments Creatinine Lvl (test code = Creatinine 0.94 0.50-1.40 Lvl) [facility] CenterI [facility] QUDQE5932-39-73 10:31:00 Test Item Value Reference Range Interpretation Comments Sodium Lvl (test code = Sodium Lvl) 140 135-145 [facility] CenterI [facility] QOFQT6185-58-56 10:31:00 Test Item Value Reference Range Interpretation Comments Potassium Lvl (test code = Potassium 3.9 3.5-5.1 Lvl) [facility]2019-12-30 10:31:00 Test Item Value Reference Range Interpretation Comments Chloride Lvl (test code = Chloride Lvl) 103 95-109 [facility]2019-12-30 10:31:00 Test Item Value Reference Range Interpretation Comments CO2 (test code = CO2) 28 24-32 [facility]2019-12-30 10:31:00 Test Item Value Reference Range Interpretation Comments Calcium Lvl (test code = Calcium Lvl) 9.2 8.5-10.5 [facility]2019-12-30 10:31:00 Test Item Value Reference Range Interpretation Comments eGFR (test code = eGFR) 59 [facility]2019-12-30 10:31:00 Test Item Value Reference Range Interpretation Comments AGAP (test code = AGAP) 12.9 10.0-20.0 [facility]2019-12-30 10:31:00 Test Item Value Reference Range Interpretation Comments Procalcitonin Lvl (test 3.83 See_Comment [Au tomated message] code = Procalcitonin Lvl) Th e system which generated this result transmitted ref erence range: <=0.10. The reference range was not used to interpr et this result as normal/abnormal . [facility]2019-12-30 10:31:00 Test Item Value Reference Range Interpretation Comments Lactic Acid Lvl (test code = Lactic 1.5 0.5-2.2 Acid Lvl) [facility] CentralLwsrqbrGFXYJAIARR1526-24-10 10:31:00 Test Item Value Reference Range Interpretation Comments Segs (test code = Segs) 91.2 45.0-75.0 [facility] CentralXlnergyETUTRRKMUH3269-87-88 10:31:00 Test Item Value Reference Range Interpretation Comments Lymphocytes (test code = Lymphocytes) 7.5 20.0-40.0 [facility] CentralSmasnxwUMXLVQVUOT5879-26-68 10:31:00 Test Item Value Reference Range Interpretation Comments Monocytes (test code = Monocytes) 1.2 2.0-12.0 [facility] CentralBbovtjlLTKZFBQFCK8773-37-01 10:31:00 Test Item Value Reference Range Interpretation Comments Basophils (test code = 0.1 See_Comment [Aut omated message] The Basophils) system which ge nerated this result tra nsmitted reference range : <=1.0. The reference r maría was not used to int erpret this result as normal/abnormal . [facility] CentralVosfdtgUZPJYMZKDF4664-68-34 10:31:00 Test Item Value Reference Range Interpretation Comments Neutrophils # (test code = Neutrophils 9.4 1.5-8.1 #) [facility] CentralNewtcgrBOTKPPYQZJ8086-51-49 10:31:00 Test Item Value Reference Range Interpretation Comments Lymphocytes # (test code = Lymphocytes 0.8 1.0-5.5 #) [facility] CentralFynzjezVUPLBJNKIN5219-00-71 10:31:00 Test Item Value Reference Range Interpretation Comments Monocytes # (test code 0.1 See_Comment [Aut omated message] The = Monocytes #) system which generated this result tra nsmitted reference range : <=0.8. The reference r maría was not used to int erpret this result as normal/abnormal . [facility] CentralOfyukmrQEMIECRHFO0105-41-76 10:31:00 Test Item Value Reference Range Interpretation Comments WBC (test code = WBC) 10.3 3.7-10.4 [facility] CentralRdhylvmQQQXMNSEWK5719-00-38 10:31:00 Test Item Value Reference Range Interpretation Comments RBC (test code = RBC) 4.13 4.20-5.40 [facility] CentralFwbqjoeAUKZPMTYOG5831-23-58 10:31:00 Test Item Value Reference Range Interpretation Comments Hgb (test code = Hgb) 12.8 12.0-16.0 [facility] CentralPqpnxgnTXYUVHHUJH0065-12-98 10:31:00 Test Item Value Reference Range Interpretation Comments Hct (test code = Hct) 38.6 36.0-48.0 [facility] CentralHldrrhjACTZMMUQVI0080-02-37 10:31:00 Test Item Value Reference Range Interpretation Comments MCV (test code = MCV) 93.7 80.0-98.0 [facility] CentralAesueryJKHJRLIFQI8755-64-71 10:31:00 Test Item Value Reference Range Interpretation Comments MCH (test code = MCH) 31.0 pg 27.0-31.0 [facility] CentralAidtljaZOXAMJUFMO4114-10-13 10:31:00 Test Item Value Reference Range Interpretation Comments MCHC (test code = MCHC) 33.1 32.0-36.0 [facility] HospitalGpxxzloOXIMQDQTTC7817-34-85 10:31:00 Test Item Value Reference Range Interpretation Comments RDW (test code = RDW) 15.4 11.5-14.5 [facility] HospitalChfctcbCCSDPQCILO5708-62-92 10:31:00 Test Item Value Reference Range Interpretation Comments Platelet (test code = Platelet) 388 133-450 [facility] HospitalPboyfupRJBVXQSAZP2263-40-25 10:31:00 Test Item Value Reference Range Interpretation Comments MPV (test code = MPV) 8.3 7.4-10.4 [facility] HospitalFiieigiYMYMLK6804-09-74 10:31:00 Test Item Value Reference Range Interpretation Comments CHD Risk (test code = CHD Risk) 2.87 1 3.90-5.80 [facility] HospitalZwmxhtuXXLTPD4019-87-58 10:31:00 Test Item Value Reference Range Interpretation Comments Trig (test code = Trig) 52 [facility] CenterHegnegkPFLOPO7356-19-22 10:31:00 Test Item Value Reference Range Interpretation Comments Chol (test code = Chol) 172 [facility] HospitalJxmmghoBIHZME5994-43-56 10:31:00 Test Item Value Reference Range Interpretation Comments HDL (test code = HDL) 60 [facility] CenterElgpghhHMTBOA1643-39-85 10:31:00 Test Item Value Reference Range Interpretation Comments LDL (Calculated) (test code = LDL 102 (Calculated)) [facility] CenterAfqugvyKZHUEQ0351-29-60 10:31:00 Test Item Value Reference Range Interpretation Comments VLDL (test code = VLDL) 10 1 [facility] CenterSPECIAL WMKOWNWRO5312-16-41 10:31:00 Test Item Value Reference Range Interpretation Comments Hgb A1C (test code = Hgb A1C) 4.9 [facility] [id number] 10:31:00 Test Item Value Reference Range Interpretation Comments Vitamin B12 Lvl (test code = Vitamin [phone] B12 Lvl) [facility] [id number] 10:31:00 Test Item Value Reference Range Interpretation Comments Troponin-I (test code 0.18 See_Comment [Auto mated message] The = Troponin-I) system which g enerated this result transmit maria c reference range : <=0.40. The reference r maría was not used to interpr et this result as karthikeyan l/abnormal. [facility] CenterCHEM [id number] 10:31:00 Test Item Value Reference Range Interpretation Comments Phosphorus (test code = Phosphorus) 4.4 2.5-4.5 [facility]2019-12-30 10:31:00 Test Item Value Reference Range Interpretation Comments Magnesium Lvl (test code = Magnesium 2.2 1.8-2.4 Lvl) [facility]2019-12-30 10:31:00 Test Item Value Reference Range Interpretation Comments Glucose Lvl (test code = Glucose Lvl) 146 70-99 [facility]2019-12-30 10:31:00 Test Item Value Reference Range Interpretation Comments BUN (test code = BUN) 14 7-22 [facility]2019-12-30 10:31:00 Test Item Value Reference Range Interpretation Comments Creatinine Lvl (test code = Creatinine 0.94 0.50-1.40 Lvl) [facility]2019-12-30 10:31:00 Test Item Value Reference Range Interpretation Comments Sodium Lvl (test code = Sodium Lvl) 140 135-145 [facility]2019-12-30 10:31:00 Test Item Value Reference Range Interpretation Comments Potassium Lvl (test code = Potassium 3.9 3.5-5.1 Lvl) [facility]2019-12-30 10:31:00 Test Item Value Reference Range Interpretation Comments Chloride Lvl (test code = Chloride Lvl) 103 95-109 [facility]2019-12-30 10:31:00 Test Item Value Reference Range Interpretation Comments CO2 (test code = CO2) 28 24-32 [facility]2019-12-30 10:31:00 Test Item Value Reference Range Interpretation Comments Calcium Lvl (test code = Calcium Lvl) 9.2 8.5-10.5 [facility]2019-12-30 10:31:00 Test Item Value Reference Range Interpretation Comments eGFR (test code = eGFR) 59 [facility]2019-12-30 10:31:00 Test Item Value Reference Range Interpretation Comments AGAP (test code = AGAP) 12.9 10.0-20.0 [facility]2019-12-30 10:31:00 Test Item Value Reference Range Interpretation Comments Procalcitonin Lvl (test 3.83 See_Comment [Au tomated message] code = Procalcitonin Lvl) Th e system which generated this result transmitted ref erence range: <=0.10. The reference range was not used to interpr et this result as normal/abnormal . [facility]2019-12-30 10:31:00 Test Item Value Reference Range Interpretation Comments Lactic Acid Lvl (test code = Lactic 1.5 0.5-2.2 Acid Lvl) [facility] CentralAnxpmphDXPHMQTNET4516-51-96 10:31:00 Test Item Value Reference Range Interpretation Comments Segs (test code = Segs) 91.2 45.0-75.0 [facility] CentralFapyqoyBPPAENOKUN6375-77-90 10:31:00 Test Item Value Reference Range Interpretation Comments Lymphocytes (test code = Lymphocytes) 7.5 20.0-40.0 [facility] CentralQftcctcPBKPLWGVUN5115-61-08 10:31:00 Test Item Value Reference Range Interpretation Comments Monocytes (test code = Monocytes) 1.2 2.0-12.0 [facility] CentralRshfcyoYFIZWQZCCJ1938-60-04 10:31:00 Test Item Value Reference Range Interpretation Comments Basophils (test code = 0.1 See_Comment [Aut omated message] The Basophils) system which ge nerated this result tra nsmitted reference range : <=1.0. The reference r maría was not used to int erpret this result as normal/abnormal . [facility] CentralRoyyqshQTDGRDZACC8812-15-92 10:31:00 Test Item Value Reference Range Interpretation Comments Neutrophils # (test code = Neutrophils 9.4 1.5-8.1 #) [facility] CentralHlkwgoiNNWNNBXUMH9281-14-16 10:31:00 Test Item Value Reference Range Interpretation Comments Lymphocytes # (test code = Lymphocytes 0.8 1.0-5.5 #) [facility] CentralNddqswmJRTIFVGYUQ3389-23-34 10:31:00 Test Item Value Reference Range Interpretation Comments Monocytes # (test code 0.1 See_Comment [Aut omated message] The = Monocytes #) system which generated this result tra nsmitted reference range : <=0.8. The reference r maría was not used to int erpret this result as normal/abnormal . [facility] CentralGfqbyecFXAITBKTGN1969-40-99 10:31:00 Test Item Value Reference Range Interpretation Comments WBC (test code = WBC) 10.3 3.7-10.4 [facility] CentralGzqngbcESTJQNGWCE9473-22-65 10:31:00 Test Item Value Reference Range Interpretation Comments RBC (test code = RBC) 4.13 4.20-5.40 [facility] CentralWytyuiiJDDYAVZQOR5149-25-68 10:31:00 Test Item Value Reference Range Interpretation Comments Hgb (test code = Hgb) 12.8 12.0-16.0 [facility] CentralKlnvyadTTTHKQQBEL0505-76-27 10:31:00 Test Item Value Reference Range Interpretation Comments Hct (test code = Hct) 38.6 36.0-48.0 [facility] CentralNwnldroSLDWMYALPP1862-62-27 10:31:00 Test Item Value Reference Range Interpretation Comments MCV (test code = MCV) 93.7 80.0-98.0 [facility] CentralCvnslcjLPANZVDMFV5590-98-66 10:31:00 Test Item Value Reference Range Interpretation Comments MCH (test code = MCH) 31.0 pg 27.0-31.0 [facility] CentralKqlxfkgBCJOOQEDWM9751-92-29 10:31:00 Test Item Value Reference Range Interpretation Comments MCHC (test code = MCHC) 33.1 32.0-36.0 [facility] CentralDflvmijDMZDVNFWWB2805-63-87 10:31:00 Test Item Value Reference Range Interpretation Comments RDW (test code = RDW) 15.4 11.5-14.5 [facility] CentralSsacscoEOAFXBAKHI1926-92-81 10:31:00 Test Item Value Reference Range Interpretation Comments Platelet (test code = Platelet) 388 133-450 [facility] CentralCwyvlriZMBMRPYYGU3568-19-42 10:31:00 Test Item Value Reference Range Interpretation Comments MPV (test code = MPV) 8.3 7.4-10.4 [facility]NauxaswRICYRG1759-42-49 10:31:00 Test Item Value Reference Range Interpretation Comments CHD Risk (test code = CHD Risk) 2.87 1 3.90-5.80 [facility] HospitalPiyvnlzMPQYYN3275-28-41 10:31:00 Test Item Value Reference Range Interpretation Comments Trig (test code = Trig) 52 [facility] HospitalKxekkcdVLWTPO2713-70-70 10:31:00 Test Item Value Reference Range Interpretation Comments Chol (test code = Chol) 172 [facility] HospitalFusalvdACZMKK8984-91-65 10:31:00 Test Item Value Reference Range Interpretation Comments HDL (test code = HDL) 60 [facility] CenterJzzvooaZVPPXL0308-32-67 10:31:00 Test Item Value Reference Range Interpretation Comments LDL (Calculated) (test code = LDL 102 (Calculated)) [facility] CenterCxowiuxZBGTLU4945-34-58 10:31:00 Test Item Value Reference Range Interpretation Comments VLDL (test code = VLDL) 10 1 [facility]IAL RDJBYZSMQ3497-61-42 10:31:00 Test Item Value Reference Range Interpretation Comments Hgb A1C (test code = Hgb A1C) 4.9 [facility] KNZLA1102-79-06 10:31:00 Test Item Value Reference Range Interpretation Comments Vitamin B12 Lvl (test code = Vitamin [phone] B12 Lvl) [facility] CenterCARDIAC JLXEOMC1499-57-85 10:31:00 Test Item Value Reference Range Interpretation Comments Troponin-I (test code 0.18 See_Comment [Auto mated message] The = Troponin-I) system which g enerated this result transmit maria c reference range : <=0.40. The reference r maría was not used to interpr et this result as karthikeyan l/abnormal. [facility] CenterI Like My Waitress [id number] 10:31:00 Test Item Value Reference Range Interpretation Comments Phosphorus (test code = Phosphorus) 4.4 2.5-4.5 [facility] CenterI [facility] [id number] 10:31:00 Test Item Value Reference Range Interpretation Comments Magnesium Lvl (test code = Magnesium 2.2 1.8-2.4 Lvl) [facility] CenterI [facility] [id number] 10:31:00 Test Item Value Reference Range Interpretation Comments Glucose Lvl (test code = Glucose Lvl) 146 70-99 [facility] CenterI [facility] TSFYT9804-68-90 10:31:00 Test Item Value Reference Range Interpretation Comments BUN (test code = BUN) 14 7-22 [facility] CenterI [facility] [id number] 10:31:00 Test Item Value Reference Range Interpretation Comments Creatinine Lvl (test code = Creatinine 0.94 0.50-1.40 Lvl) [facility]2019-12-30 10:31:00 Test Item Value Reference Range Interpretation Comments Sodium Lvl (test code = Sodium Lvl) 140 135-145 [facility] CenterI [facility] [id number] 10:31:00 Test Item Value Reference Range Interpretation Comments Potassium Lvl (test code = Potassium 3.9 3.5-5.1 Lvl) [facility]2019-12-30 10:31:00 Test Item Value Reference Range Interpretation Comments Chloride Lvl (test code = Chloride Lvl) 103 95-109 [facility]2019-12-30 10:31:00 Test Item Value Reference Range Interpretation Comments CO2 (test code = CO2) 28 24-32 [facility]2019-12-30 10:31:00 Test Item Value Reference Range Interpretation Comments Calcium Lvl (test code = Calcium Lvl) 9.2 8.5-10.5 [facility]2019-12-30 10:31:00 Test Item Value Reference Range Interpretation Comments eGFR (test code = eGFR) 59 [facility]2019-12-30 10:31:00 Test Item Value Reference Range Interpretation Comments AGAP (test code = AGAP) 12.9 10.0-20.0 [facility]2019-12-30 10:31:00 Test Item Value Reference Range Interpretation Comments Procalcitonin Lvl (test 3.83 See_Comment [Au tomated message] code = Procalcitonin Lvl) Th e system which generated this result transmitted ref erence range: <=0.10. The reference range was not used to interpr et this result as normal/abnormal . [facility]2019-12-30 10:31:00 Test Item Value Reference Range Interpretation Comments Lactic Acid Lvl (test code = Lactic 1.5 0.5-2.2 Acid Lvl) [facility] CentralVwyiqtpQRMOOQAGMQ0596-18-79 10:31:00 Test Item Value Reference Range Interpretation Comments Segs (test code = Segs) 91.2 45.0-75.0 [facility] CentralNfyfukeRPHCNQNRVQ5905-69-08 10:31:00 Test Item Value Reference Range Interpretation Comments Lymphocytes (test code = Lymphocytes) 7.5 20.0-40.0 [facility] CentralRentoksZKOFUIPQVT5217-72-36 10:31:00 Test Item Value Reference Range Interpretation Comments Monocytes (test code = Monocytes) 1.2 2.0-12.0 [facility] CentralKwflsatNHKBYYWUQO0664-41-81 10:31:00 Test Item Value Reference Range Interpretation Comments Basophils (test code = 0.1 See_Comment [Aut omated message] The Basophils) system which ge nerated this result tra nsmitted reference range : <=1.0. The reference r maría was not used to int erpret this result as normal/abnormal . [facility] CentralWhhpmalDLZQQGGCCF0475-73-43 10:31:00 Test Item Value Reference Range Interpretation Comments Neutrophils # (test code = Neutrophils 9.4 1.5-8.1 #) [facility] CentralUcfygwbWEEGIWECJI4231-85-42 10:31:00 Test Item Value Reference Range Interpretation Comments Lymphocytes # (test code = Lymphocytes 0.8 1.0-5.5 #) [facility] CentralRchizbzNFIGUUZDLA9070-22-58 10:31:00 Test Item Value Reference Range Interpretation Comments Monocytes # (test code 0.1 See_Comment [Aut omated message] The = Monocytes #) system which generated this result tra nsmitted reference range : <=0.8. The reference r maría was not used to int erpret this result as normal/abnormal . [facility] CentralYewrzeiXCIEBQWQED4547-84-26 10:31:00 Test Item Value Reference Range Interpretation Comments WBC (test code = WBC) 10.3 3.7-10.4 [facility] CentralLbsysfjQJEKSZDUFU9356-74-66 10:31:00 Test Item Value Reference Range Interpretation Comments RBC (test code = RBC) 4.13 4.20-5.40 [facility] CentralIypccfwPJTORAKBZQ8493-00-16 10:31:00 Test Item Value Reference Range Interpretation Comments Hgb (test code = Hgb) 12.8 12.0-16.0 [facility] CentralQwjeynmGPCMNLFONB2491-02-71 10:31:00 Test Item Value Reference Range Interpretation Comments Hct (test code = Hct) 38.6 36.0-48.0 [facility] CentralXssjsrdEYTBPKIQSC6958-79-25 10:31:00 Test Item Value Reference Range Interpretation Comments MCV (test code = MCV) 93.7 80.0-98.0 [facility] CentralSrtvibqZOPRWQAQFF9329-06-42 10:31:00 Test Item Value Reference Range Interpretation Comments MCH (test code = MCH) 31.0 pg 27.0-31.0 [facility] CentralOdqiociZVAKDVGJQO8311-41-65 10:31:00 Test Item Value Reference Range Interpretation Comments MCHC (test code = MCHC) 33.1 32.0-36.0 [facility] CentralZykpqefHMYILXJMYL4140-44-48 10:31:00 Test Item Value Reference Range Interpretation Comments RDW (test code = RDW) 15.4 11.5-14.5 [facility] HospitalTajcncgEXRICIJFQU8009-04-55 10:31:00 Test Item Value Reference Range Interpretation Comments Platelet (test code = Platelet) 388 133-450 [facility] HospitalOycofuvGXPILSAWIA1485-72-83 10:31:00 Test Item Value Reference Range Interpretation Comments MPV (test code = MPV) 8.3 7.4-10.4 [facility] CenterDciwebjTWBBDU0828-04-05 10:31:00 Test Item Value Reference Range Interpretation Comments CHD Risk (test code = CHD Risk) 2.87 1 3.90-5.80 [facility] HospitalKxvuwgmCQHXSM3060-53-48 10:31:00 Test Item Value Reference Range Interpretation Comments Trig (test code = Trig) 52 [facility] CenterEhdrgwiUSXZWR0250-99-52 10:31:00 Test Item Value Reference Range Interpretation Comments Chol (test code = Chol) 172 [facility] HospitalSkplrpqUYESDP7757-63-10 10:31:00 Test Item Value Reference Range Interpretation Comments HDL (test code = HDL) 60 [facility] CenterCkyowebDAWXLP9123-19-72 10:31:00 Test Item Value Reference Range Interpretation Comments LDL (Calculated) (test code = LDL 102 (Calculated)) [facility] CenterQdlgfwcRJFHEW8367-95-08 10:31:00 Test Item Value Reference Range Interpretation Comments VLDL (test code = VLDL) 10 1 [facility] CenterSPECIAL CYHLQMFOJ5982-53-20 10:31:00 Test Item Value Reference Range Interpretation Comments Hgb A1C (test code = Hgb A1C) 4.9 [facility] HospitalannANEMIA JKPSS8725-56-87 10:31:00 Test Item Value Reference Range Interpretation Comments Vitamin B12 Lvl (test code = Vitamin [phone] B12 Lvl) [facility] CenterCARDIAC AATBVOR7247-59-47 10:31:00 Test Item Value Reference Range Interpretation Comments Troponin-I (test code 0.18 See_Comment [Auto mated message] The = Troponin-I) system which g enerated this result transmit maria c reference range : <=0.40. The reference r maría was not used to interpr et this result as karthikeyan l/abnormal. [facility] CenterCHEM [id number] 10:31:00 Test Item Value Reference Range Interpretation Comments Phosphorus (test code = Phosphorus) 4.4 2.5-4.5 [facility]2019-12-30 10:31:00 Test Item Value Reference Range Interpretation Comments Magnesium Lvl (test code = Magnesium 2.2 1.8-2.4 Lvl) [facility]2019-12-30 10:31:00 Test Item Value Reference Range Interpretation Comments Glucose Lvl (test code = Glucose Lvl) 146 70-99 [facility]2019-12-30 10:31:00 Test Item Value Reference Range Interpretation Comments BUN (test code = BUN) 14 7-22 [facility]2019-12-30 10:31:00 Test Item Value Reference Range Interpretation Comments Creatinine Lvl (test code = Creatinine 0.94 0.50-1.40 Lvl) [facility]2019-12-30 10:31:00 Test Item Value Reference Range Interpretation Comments Sodium Lvl (test code = Sodium Lvl) 140 135-145 [facility]2019-12-30 10:31:00 Test Item Value Reference Range Interpretation Comments Potassium Lvl (test code = Potassium 3.9 3.5-5.1 Lvl) [facility]2019-12-30 10:31:00 Test Item Value Reference Range Interpretation Comments Chloride Lvl (test code = Chloride Lvl) 103 95-109 [facility]2019-12-30 10:31:00 Test Item Value Reference Range Interpretation Comments CO2 (test code = CO2) 28 24-32 [facility]2019-12-30 10:31:00 Test Item Value Reference Range Interpretation Comments Calcium Lvl (test code = Calcium Lvl) 9.2 8.5-10.5 [facility]2019-12-30 10:31:00 Test Item Value Reference Range Interpretation Comments eGFR (test code = eGFR) 59 [facility]2019-12-30 10:31:00 Test Item Value Reference Range Interpretation Comments AGAP (test code = AGAP) 12.9 10.0-20.0 [facility]2019-12-30 10:31:00 Test Item Value Reference Range Interpretation Comments Procalcitonin Lvl (test 3.83 See_Comment [Au tomated message] code = Procalcitonin Lvl) Th e system which generated this result transmitted ref erence range: <=0.10. The reference range was not used to interpr et this result as normal/abnormal . [facility]2019-12-30 10:31:00 Test Item Value Reference Range Interpretation Comments Lactic Acid Lvl (test code = Lactic 1.5 0.5-2.2 Acid Lvl) [facility] CentralKunliwdVZSYYVCLPE2256-20-46 10:31:00 Test Item Value Reference Range Interpretation Comments Segs (test code = Segs) 91.2 45.0-75.0 [facility] CentralHatqtsbOUZUALWXYS8615-34-10 10:31:00 Test Item Value Reference Range Interpretation Comments Lymphocytes (test code = Lymphocytes) 7.5 20.0-40.0 [facility] CentralGlsylvdTVVIYFBVPN9888-34-94 10:31:00 Test Item Value Reference Range Interpretation Comments Monocytes (test code = Monocytes) 1.2 2.0-12.0 [facility] CentralQejwcwhUGVZNNUAHV4311-68-86 10:31:00 Test Item Value Reference Range Interpretation Comments Basophils (test code = 0.1 See_Comment [Aut omated message] The Basophils) system which ge nerated this result tra nsmitted reference range : <=1.0. The reference r maría was not used to int erpret this result as normal/abnormal . [facility] CentralEzsqrutFGAHTWFHAV6216-25-78 10:31:00 Test Item Value Reference Range Interpretation Comments Neutrophils # (test code = Neutrophils 9.4 1.5-8.1 #) [facility] CentralLmdbnjqFFNNKTLZRV6975-21-19 10:31:00 Test Item Value Reference Range Interpretation Comments Lymphocytes # (test code = Lymphocytes 0.8 1.0-5.5 #) [facility] CentralAopwmhqEAKUQPJPZU7142-02-39 10:31:00 Test Item Value Reference Range Interpretation Comments Monocytes # (test code 0.1 See_Comment [Aut omated message] The = Monocytes #) system which generated this result tra nsmitted reference range : <=0.8. The reference r maría was not used to int erpret this result as normal/abnormal . [facility] CentralLlskdsfLRYAHHIRAQ7631-34-10 10:31:00 Test Item Value Reference Range Interpretation Comments WBC (test code = WBC) 10.3 3.7-10.4 [facility] CentralKgpahugWMKJTJSZSU8788-88-48 10:31:00 Test Item Value Reference Range Interpretation Comments RBC (test code = RBC) 4.13 4.20-5.40 [facility] CentralFufljmmRBRIOUEDND4497-46-33 10:31:00 Test Item Value Reference Range Interpretation Comments Hgb (test code = Hgb) 12.8 12.0-16.0 [facility] CentralMnwwedrXONHVSOBAE9061-28-71 10:31:00 Test Item Value Reference Range Interpretation Comments Hct (test code = Hct) 38.6 36.0-48.0 [facility] CentralXzewixkTHXQNPTTFB8681-76-97 10:31:00 Test Item Value Reference Range Interpretation Comments MCV (test code = MCV) 93.7 80.0-98.0 [facility] CentralOeeuwhsHMRVKYZTPH6156-61-99 10:31:00 Test Item Value Reference Range Interpretation Comments MCH (test code = MCH) 31.0 pg 27.0-31.0 [facility] CentralQzxwlbiYVSCFEGSGW6935-47-74 10:31:00 Test Item Value Reference Range Interpretation Comments MCHC (test code = MCHC) 33.1 32.0-36.0 [facility] CentralMsnxzelLHGAGFGPYK5191-40-63 10:31:00 Test Item Value Reference Range Interpretation Comments RDW (test code = RDW) 15.4 11.5-14.5 [facility] CentralBykpanjXTTAPYBGQD9079-14-15 10:31:00 Test Item Value Reference Range Interpretation Comments Platelet (test code = Platelet) 388 133-450 [facility] CentralBbjuodbBKMCLUOJTU7444-47-41 10:31:00 Test Item Value Reference Range Interpretation Comments MPV (test code = MPV) 8.3 7.4-10.4 [facility]JbgywumAQCECC3811-70-11 10:31:00 Test Item Value Reference Range Interpretation Comments CHD Risk (test code = CHD Risk) 2.87 1 3.90-5.80 [facility] HospitalDutxkboHQHJSS6599-13-00 10:31:00 Test Item Value Reference Range Interpretation Comments Trig (test code = Trig) 52 [facility] HospitalGcpwycqQZBDKQ2785-27-55 10:31:00 Test Item Value Reference Range Interpretation Comments Chol (test code = Chol) 172 [facility] HospitalGllkcowPIVFBY9050-49-35 10:31:00 Test Item Value Reference Range Interpretation Comments HDL (test code = HDL) 60 [facility] CenterGwrheorLHLHRL9452-39-47 10:31:00 Test Item Value Reference Range Interpretation Comments LDL (Calculated) (test code = LDL 102 (Calculated)) [facility] CenterCsdbbbrDBBAKK5061-68-61 10:31:00 Test Item Value Reference Range Interpretation Comments VLDL (test code = VLDL) 10 1 [facility] XHUFQVENI5622-48-57 10:31:00 Test Item Value Reference Range Interpretation Comments Hgb A1C (test code = Hgb A1C) 4.9 [facility] AXZZT9503-72-70 10:31:00 Test Item Value Reference Range Interpretation Comments Vitamin B12 Lvl (test code = Vitamin [phone] B12 Lvl) [facility] CenterCARDIAC TSTNQYI6720-39-98 10:31:00 Test Item Value Reference Range Interpretation Comments Troponin-I (test code 0.18 See_Comment [Auto mated message] The = Troponin-I) system which g enerated this result transmit maria c reference range : <=0.40. The reference r maría was not used to interpr et this result as karthikeyan l/abnormal. [facility] CenterI Like My [facility] RKZOE6882-72-27 10:31:00 Test Item Value Reference Range Interpretation Comments Phosphorus (test code = Phosphorus) 4.4 2.5-4.5 [facility] CenterI [facility] QKURV8660-97-44 10:31:00 Test Item Value Reference Range Interpretation Comments Magnesium Lvl (test code = Magnesium 2.2 1.8-2.4 Lvl) [facility]2019-12-30 10:31:00 Test Item Value Reference Range Interpretation Comments Glucose Lvl (test code = Glucose Lvl) 146 70-99 [facility] CenterI [facility] EPBNO5261-65-26 10:31:00 Test Item Value Reference Range Interpretation Comments BUN (test code = BUN) 14 7-22 [facility] CenterI [facility] PKERL6230-24-93 10:31:00 Test Item Value Reference Range Interpretation Comments Creatinine Lvl (test code = Creatinine 0.94 0.50-1.40 Lvl) [facility]2019-12-30 10:31:00 Test Item Value Reference Range Interpretation Comments Sodium Lvl (test code = Sodium Lvl) 140 135-145 [facility] CenterI [facility] My [facility] [id number] 10:31:00 Test Item Value Reference Range Interpretation Comments Potassium Lvl (test code = Potassium 3.9 3.5-5.1 Lvl) [facility]2019-12-30 10:31:00 Test Item Value Reference Range Interpretation Comments Chloride Lvl (test code = Chloride Lvl) 103 95-109 [facility]2019-12-30 10:31:00 Test Item Value Reference Range Interpretation Comments CO2 (test code = CO2) 28 24-32 [facility]2019-12-30 10:31:00 Test Item Value Reference Range Interpretation Comments Calcium Lvl (test code = Calcium Lvl) 9.2 8.5-10.5 [facility]2019-12-30 10:31:00 Test Item Value Reference Range Interpretation Comments eGFR (test code = eGFR) 59 [facility]2019-12-30 10:31:00 Test Item Value Reference Range Interpretation Comments AGAP (test code = AGAP) 12.9 10.0-20.0 [facility]2019-12-30 10:31:00 Test Item Value Reference Range Interpretation Comments Procalcitonin Lvl (test 3.83 See_Comment [Au tomated message] code = Procalcitonin Lvl) Th e system which generated this result transmitted ref erence range: <=0.10. The reference range was not used to interpr et this result as normal/abnormal . [facility]2019-12-30 10:31:00 Test Item Value Reference Range Interpretation Comments Lactic Acid Lvl (test code = Lactic 1.5 0.5-2.2 Acid Lvl) [facility]JnrqorvIGRGPQDLIG5632-85-64 10:31:00 Test Item Value Reference Range Interpretation Comments Segs (test code = Segs) 91.2 45.0-75.0 [facility] CentralCsjpkheQVPOIDJENP5327-58-32 10:31:00 Test Item Value Reference Range Interpretation Comments Lymphocytes (test code = Lymphocytes) 7.5 20.0-40.0 [facility] CentralFcmzhzkIPCPYITHQJ2262-96-55 10:31:00 Test Item Value Reference Range Interpretation Comments Monocytes (test code = Monocytes) 1.2 2.0-12.0 [facility] CentralFryumngBOTEDOMLGG4517-97-97 10:31:00 Test Item Value Reference Range Interpretation Comments Basophils (test code = 0.1 See_Comment [Aut omated message] The Basophils) system which ge nerated this result tra nsmitted reference range : <=1.0. The reference r maría was not used to int erpret this result as normal/abnormal . [facility] CentralFwzimymSDHTXFPHNW4650-07-88 10:31:00 Test Item Value Reference Range Interpretation Comments Neutrophils # (test code = Neutrophils 9.4 1.5-8.1 #) [facility] CentralKuqbireZHUOJSISPF8857-59-15 10:31:00 Test Item Value Reference Range Interpretation Comments Lymphocytes # (test code = Lymphocytes 0.8 1.0-5.5 #) [facility] CentralNpvepjiMVEVMQBQWR1164-84-40 10:31:00 Test Item Value Reference Range Interpretation Comments Monocytes # (test code 0.1 See_Comment [Aut omated message] The = Monocytes #) system which generated this result tra nsmitted reference range : <=0.8. The reference r maría was not used to int erpret this result as normal/abnormal . [facility] CentralJyplkgyFKDBZBCAIW4644-61-56 10:31:00 Test Item Value Reference Range Interpretation Comments WBC (test code = WBC) 10.3 3.7-10.4 [facility] CentralVwhkgkaKISZFOEQWM1163-09-36 10:31:00 Test Item Value Reference Range Interpretation Comments RBC (test code = RBC) 4.13 4.20-5.40 [facility] CentralAajghyjENCOXIOTKK4487-73-11 10:31:00 Test Item Value Reference Range Interpretation Comments Hgb (test code = Hgb) 12.8 12.0-16.0 [facility] CentralFjrkvcjATGLXFXODN2697-13-38 10:31:00 Test Item Value Reference Range Interpretation Comments Hct (test code = Hct) 38.6 36.0-48.0 [facility] CentralSfdmxckPOPLJFFLCP4182-42-68 10:31:00 Test Item Value Reference Range Interpretation Comments MCV (test code = MCV) 93.7 80.0-98.0 [facility] CentralKpggjqbEDRKVJLUCY3915-67-58 10:31:00 Test Item Value Reference Range Interpretation Comments MCH (test code = MCH) 31.0 pg 27.0-31.0 [facility] CentralZnrqyhaVYRZPQGMZT4051-85-73 10:31:00 Test Item Value Reference Range Interpretation Comments MCHC (test code = MCHC) 33.1 32.0-36.0 [facility] CentralUwhtwyuHDSUBBTLAM3935-99-11 10:31:00 Test Item Value Reference Range Interpretation Comments RDW (test code = RDW) 15.4 11.5-14.5 [facility]NnhaibrQFAKWLPITT7231-65-80 10:31:00 Test Item Value Reference Range Interpretation Comments Platelet (test code = Platelet) 388 133-450 [facility] HospitalIxfuoyqKEKHUFFXOE8853-21-77 10:31:00 Test Item Value Reference Range Interpretation Comments MPV (test code = MPV) 8.3 7.4-10.4 [facility]Wx[facility]ubqsYTCPUL5209[facility]28-[facility] 10:31:00 Test Item Value Reference Range Interpretation Comments CHD Risk (test code = CHD Risk) 2.87 1 3.90-5.80 [facility] HospitalBrpzqcvKNRUVR9806-07-35 10:31:00 Test Item Value Reference Range Interpretation Comments Trig (test code = Trig) 52 [facility] CenterApvfqrkRNDCFP1201-10-39 10:31:00 Test Item Value Reference Range Interpretation Comments Chol (test code = Chol) 172 [facility] CenterCvemaxbZOKYJN1494-70-29 10:31:00 Test Item Value Reference Range Interpretation Comments HDL (test code = HDL) 60 [facility] CenterItpiuwsDLQOKN5000-21-40 10:31:00 Test Item Value Reference Range Interpretation Comments LDL (Calculated) (test code = LDL 102 (Calculated)) [facility] CenterHhbtdymCBCLBP4081-00-39 10:31:00 Test Item Value Reference Range Interpretation Comments VLDL (test code = VLDL) 10 1 [facility] CenterSPECIAL XPSPBKEPS3600-52-11 10:31:00 Test Item Value Reference Range Interpretation Comments Hgb A1C (test code = Hgb A1C) 4.9 [facility]annANEMIA VMSJA9290-72-94 10:31:00 Test Item Value Reference Range Interpretation Comments Vitamin B12 Lvl (test code = Vitamin [phone] B12 Lvl) [facility] CenterCARDIAC NAYTPNJ4085-92-11 10:31:00 Test Item Value Reference Range Interpretation Comments Troponin-I (test code 0.18 See_Comment [Auto mated message] The = Troponin-I) system which g enerated this result transmit maria c reference range : <=0.40. The reference r maría was not used to interpr et this result as karthikeyan l/abnormal. [facility] CenterCHEM WBZQJ6796-69-15 10:31:00 Test Item Value Reference Range Interpretation Comments Phosphorus (test code = Phosphorus) 4.4 2.5-4.5 [facility]2019-12-30 10:31:00 Test Item Value Reference Range Interpretation Comments Magnesium Lvl (test code = Magnesium 2.2 1.8-2.4 Lvl) [facility]2019-12-30 10:31:00 Test Item Value Reference Range Interpretation Comments Glucose Lvl (test code = Glucose Lvl) 146 70-99 [facility]2019-12-30 10:31:00 Test Item Value Reference Range Interpretation Comments BUN (test code = BUN) 14 7-22 [facility]2019-12-30 10:31:00 Test Item Value Reference Range Interpretation Comments Creatinine Lvl (test code = Creatinine 0.94 0.50-1.40 Lvl) [facility]2019-12-30 10:31:00 Test Item Value Reference Range Interpretation Comments Sodium Lvl (test code = Sodium Lvl) 140 135-145 [facility]2019-12-30 10:31:00 Test Item Value Reference Range Interpretation Comments Potassium Lvl (test code = Potassium 3.9 3.5-5.1 Lvl) [facility]2019-12-30 10:31:00 Test Item Value Reference Range Interpretation Comments Chloride Lvl (test code = Chloride Lvl) 103 95-109 [facility]2019-12-30 10:31:00 Test Item Value Reference Range Interpretation Comments CO2 (test code = CO2) 28 24-32 [facility]2019-12-30 10:31:00 Test Item Value Reference Range Interpretation Comments Calcium Lvl (test code = Calcium Lvl) 9.2 8.5-10.5 [facility]2019-12-30 10:31:00 Test Item Value Reference Range Interpretation Comments eGFR (test code = eGFR) 59 [facility]2019-12-30 10:31:00 Test Item Value Reference Range Interpretation Comments AGAP (test code = AGAP) 12.9 10.0-20.0 [facility]2019-12-30 10:31:00 Test Item Value Reference Range Interpretation Comments Procalcitonin Lvl (test 3.83 See_Comment [Au tomated message] code = Procalcitonin Lvl) Th e system which generated this result transmitted ref erence range: <=0.10. The reference range was not used to interpr et this result as normal/abnormal . [facility]2019-12-30 10:31:00 Test Item Value Reference Range Interpretation Comments Lactic Acid Lvl (test code = Lactic 1.5 0.5-2.2 Acid Lvl) [facility] CentralVydzsuwWXNCGTJQJX0525-18-19 10:31:00 Test Item Value Reference Range Interpretation Comments Segs (test code = Segs) 91.2 45.0-75.0 [facility] CentralUvvwtnwALRHGDFKUR8539-74-93 10:31:00 Test Item Value Reference Range Interpretation Comments Lymphocytes (test code = Lymphocytes) 7.5 20.0-40.0 [facility] CentralAfenhyrLQZGPXLWJC2062-19-86 10:31:00 Test Item Value Reference Range Interpretation Comments Monocytes (test code = Monocytes) 1.2 2.0-12.0 [facility] CentralAxrcqdfWLTAYUZPFP9439-60-32 10:31:00 Test Item Value Reference Range Interpretation Comments Basophils (test code = 0.1 See_Comment [Aut omated message] The Basophils) system which ge nerated this result tra nsmitted reference range : <=1.0. The reference r maría was not used to int erpret this result as normal/abnormal . [facility] CentralLqitulsZDBDJZEIEE6190-61-38 10:31:00 Test Item Value Reference Range Interpretation Comments Neutrophils # (test code = Neutrophils 9.4 1.5-8.1 #) [facility] CentralVnagtphSEHPBREGEQ3771-85-16 10:31:00 Test Item Value Reference Range Interpretation Comments Lymphocytes # (test code = Lymphocytes 0.8 1.0-5.5 #) [facility] CentralEqqlfbdOXOHOOBSBX8476-59-85 10:31:00 Test Item Value Reference Range Interpretation Comments Monocytes # (test code 0.1 See_Comment [Aut omated message] The = Monocytes #) system which generated this result tra nsmitted reference range : <=0.8. The reference r maría was not used to int erpret this result as normal/abnormal . [facility] CentralUyliqioSBNBLMGHJD3364-62-37 10:31:00 Test Item Value Reference Range Interpretation Comments WBC (test code = WBC) 10.3 3.7-10.4 [facility] CentralBsipbkxYWRLXJGNYJ5514-04-08 10:31:00 Test Item Value Reference Range Interpretation Comments RBC (test code = RBC) 4.13 4.20-5.40 [facility] CentralIwxwyyzRXGBVEDAJE7420-44-04 10:31:00 Test Item Value Reference Range Interpretation Comments Hgb (test code = Hgb) 12.8 12.0-16.0 [facility] CentralRjmnuhqJMNKBQZQIN7185-73-99 10:31:00 Test Item Value Reference Range Interpretation Comments Hct (test code = Hct) 38.6 36.0-48.0 [facility] CentralFuhdgrkSEBRPRNBLW9901-54-55 10:31:00 Test Item Value Reference Range Interpretation Comments MCV (test code = MCV) 93.7 80.0-98.0 [facility] CentralDabevugJGYXPZIOYX8939-35-13 10:31:00 Test Item Value Reference Range Interpretation Comments MCH (test code = MCH) 31.0 pg 27.0-31.0 [facility] CentralYshqcgeTBFNCVBPEI1732-37-83 10:31:00 Test Item Value Reference Range Interpretation Comments MCHC (test code = MCHC) 33.1 32.0-36.0 [facility] CentralXvypnknYZPEUIJBPQ7365-01-63 10:31:00 Test Item Value Reference Range Interpretation Comments RDW (test code = RDW) 15.4 11.5-14.5 [facility] CentralVzjqkycJEUJMWEVLQ1594-77-87 10:31:00 Test Item Value Reference Range Interpretation Comments Platelet (test code = Platelet) 388 133-450 [facility] CentralAbxqpcdVDPJKZACBF3425-72-17 10:31:00 Test Item Value Reference Range Interpretation Comments MPV (test code = MPV) 8.3 7.4-10.4 [facility]EcufeorWGDIUF8872-37-22 10:31:00 Test Item Value Reference Range Interpretation Comments CHD Risk (test code = CHD Risk) 2.87 1 3.90-5.80 [facility] HospitalKwmlpkyFSNZAR8558-15-37 10:31:00 Test Item Value Reference Range Interpretation Comments Trig (test code = Trig) 52 [facility] HospitalWjxcpkzMAHLIO9561-78-16 10:31:00 Test Item Value Reference Range Interpretation Comments Chol (test code = Chol) 172 [facility] HospitalCiitslvESFLVH7266-31-14 10:31:00 Test Item Value Reference Range Interpretation Comments HDL (test code = HDL) [address] [facility] HospitalRobcfywHIIHEP3683-10-22 10:31:00 Test Item Value Reference Range Interpretation Comments LDL (Calculated) (test code = LDL 102 (Calculated)) [facility] CenterZsctkyqPAILKJ1157-59-37 10:31:00 Test Item Value Reference Range Interpretation Comments VLDL (test code = VLDL) 10 1 [facility]IAL IKGHKUYVB4311-77-13 10:31:00 Test Item Value Reference Range Interpretation Comments Hgb A1C (test code = Hgb A1C) 4.9 [facility] LTSUN1629-84-90 10:31:00 Test Item Value Reference Range Interpretation Comments Vitamin B12 Lvl (test code = Vitamin [phone] B12 Lvl) [facility] CenterCARDIAC TCPLWSN9948-43-16 10:31:00 Test Item Value Reference Range Interpretation Comments Troponin-I (test code 0.18 See_Comment [Auto mated message] The = Troponin-I) system which g enerated this result transmit maria c reference range : <=0.40. The reference r maría was not used to interpr et this result as karthikeyan l/abnormal. [facility] CenterI Like My [facility] WWUZL3594-98-56 10:31:00 Test Item Value Reference Range Interpretation Comments Phosphorus (test code = Phosphorus) 4.4 2.5-4.5 [facility] CenterI [facility] CHVKH8334-61-51 10:31:00 Test Item Value Reference Range Interpretation Comments Magnesium Lvl (test code = Magnesium 2.2 1.8-2.4 Lvl) [facility] CenterI [facility] PVCOF0570-17-90 10:31:00 Test Item Value Reference Range Interpretation Comments Glucose Lvl (test code = Glucose Lvl) 146 70-99 [facility] CenterI [facility] GQPHR1394-95-08 10:31:00 Test Item Value Reference Range Interpretation Comments BUN (test code = BUN) 14 7-22 [facility] CenterI [facility] IBQBO2575-59-85 10:31:00 Test Item Value Reference Range Interpretation Comments Creatinine Lvl (test code = Creatinine 0.94 0.50-1.40 Lvl) [facility]2019-12-30 10:31:00 Test Item Value Reference Range Interpretation Comments Sodium Lvl (test code = Sodium Lvl) 140 135-145 [facility] CenterI [facility] QSOFA3063-89-21 10:31:00 Test Item Value Reference Range Interpretation Comments Potassium Lvl (test code = Potassium 3.9 3.5-5.1 Lvl) [facility]2019-12-30 10:31:00 Test Item Value Reference Range Interpretation Comments Chloride Lvl (test code = Chloride Lvl) 103 95-109 [facility]2019-12-30 10:31:00 Test Item Value Reference Range Interpretation Comments CO2 (test code = CO2) 28 24-32 [facility]2019-12-30 10:31:00 Test Item Value Reference Range Interpretation Comments Calcium Lvl (test code = Calcium Lvl) 9.2 8.5-10.5 [facility]2019-12-30 10:31:00 Test Item Value Reference Range Interpretation Comments eGFR (test code = eGFR) 59 [facility]2019-12-30 10:31:00 Test Item Value Reference Range Interpretation Comments AGAP (test code = AGAP) 12.9 10.0-20.0 [facility]2019-12-30 10:31:00 Test Item Value Reference Range Interpretation Comments Procalcitonin Lvl (test 3.83 See_Comment [Au tomated message] code = Procalcitonin Lvl) e system which generated this result transmitted ref erence range: <=0.10. The reference range was not used to interpr et this result as normal/abnormal . [facility]2019-12-30 10:31:00 Test Item Value Reference Range Interpretation Comments Lactic Acid Lvl (test code = Lactic 1.5 0.5-2.2 Acid Lvl) [facility] CentralLfzklyrYSJBDKBGSH3147-79-77 10:31:00 Test Item Value Reference Range Interpretation Comments Segs (test code = Segs) 91.2 45.0-75.0 [facility] CentralVdwjpwaJEYWQIBQCO7324-95-65 10:31:00 Test Item Value Reference Range Interpretation Comments Lymphocytes (test code = Lymphocytes) 7.5 20.0-40.0 [facility] CentralVctkjltCKGVZETZEF3164-59-45 10:31:00 Test Item Value Reference Range Interpretation Comments Monocytes (test code = Monocytes) 1.2 2.0-12.0 [facility] CentralQwzwjciKDHKKKYUGS8735-62-08 10:31:00 Test Item Value Reference Range Interpretation Comments Basophils (test code = 0.1 See_Comment [Aut omated message] The Basophils) system which ge nerated this result tra nsmitted reference range : <=1.0. The reference r maría was not used to int erpret this result as normal/abnormal . [facility] HospitalWwripjfWVGXVDSEYZ5328-02-68 10:31:00 Test Item Value Reference Range Interpretation Comments Neutrophils # (test code = Neutrophils 9.4 1.5-8.1 #) [facility] CentralCrrugcwDQXJPDLOMG6558-83-44 10:31:00 Test Item Value Reference Range Interpretation Comments Lymphocytes # (test code = Lymphocytes 0.8 1.0-5.5 #) [facility] CentralFbyweytIIMVTLLXXI5215-91-31 10:31:00 Test Item Value Reference Range Interpretation Comments Monocytes # (test code 0.1 See_Comment [Aut omated message] The = Monocytes #) system which generated this result tra nsmitted reference range : <=0.8. The reference r maría was not used to int erpret this result as normal/abnormal . [facility] CentralZhleusrWUBVLBKXWB8026-42-61 10:31:00 Test Item Value Reference Range Interpretation Comments WBC (test code = WBC) 10.3 3.7-10.4 [facility] CenterBACTERIAL - QABBDYPC5567-28-21 05:41:00 Test Item Value Reference Range Interpretation Comments MRSA by PCR (test Negative (09/14/19 11:41 code = MRSA by PCR) PM) [facility] CenterCARDIAC TYFBZTW1948-34-18 05:41:00 Test Item Value Reference Range Interpretation Comments BNP (test code = BNP) 488 [facility] LBVPTUS2573-15-83 05:41:00 Test Item Value Reference Range Interpretation Comments Troponin-I (test code 0.26 See_Comment [Auto mated message] The = Troponin-I) system which g enerated this result transmit maria c reference range : <=0.40. The reference r maría was not used to interpr et this result as karthikeyan l/abnormal. [facility] CenterCHEM [id number] 05:41:00 Test Item Value Reference Range Interpretation Comments Procalcitonin Lvl (test 2.77 See_Comment [Au tomated message] code = Procalcitonin Lvl) Th e system which generated this result transmitted ref erence range: <=0.10. The reference range was not used to interpr et this result as normal/abnormal . [facility]2019-12-30 05:41:00 Test Item Value Reference Range Interpretation Comments Glucose Lvl (test code = Glucose Lvl) 134 70-99 [facility]2019-12-30 05:41:00 Test Item Value Reference Range Interpretation Comments BUN (test code = BUN) 13 7-22 [facility]2019-12-30 05:41:00 Test Item Value Reference Range Interpretation Comments Creatinine Lvl (test code = Creatinine 1.01 0.50-1.40 Lvl) [facility]2019-12-30 05:41:00 Test Item Value Reference Range Interpretation Comments Sodium Lvl (test code = Sodium Lvl) 140 135-145 [facility]2019-12-30 05:41:00 Test Item Value Reference Range Interpretation Comments Potassium Lvl (test code = Potassium 4.0 3.5-5.1 Lvl) [facility]2019-12-30 05:41:00 Test Item Value Reference Range Interpretation Comments Chloride Lvl (test code = Chloride Lvl) 103 95-109 [facility]2019-12-30 05:41:00 Test Item Value Reference Range Interpretation Comments CO2 (test code = CO2) 30 24-32 [facility]2019-12-30 05:41:00 Test Item Value Reference Range Interpretation Comments Calcium Lvl (test code = Calcium Lvl) 8.8 8.5-10.5 [facility]2019-12-30 05:41:00 Test Item Value Reference Range Interpretation Comments Total Protein (test code = Total 7.3 6.4-8.4 Protein) [facility]2019-12-30 05:41:00 Test Item Value Reference Range Interpretation Comments Albumin Lvl (test code = Albumin Lvl) 3.2 3.5-5.0 [facility]2019-12-30 05:41:00 Test Item Value Reference Range Interpretation Comments ALT (test code = ALT) 19 See_Comment [Auto mated message] The system which ge nerated this result transmit maria c reference range : <=65. The reference range was not used to interpr et this result as karthikeyan l/abnormal. [facility]2019-12-30 05:41:00 Test Item Value Reference Range Interpretation Comments AST (test code = AST) 21 See_Comment [Auto mated message] The system which ge nerated this result transmit maria c reference range : <=37. The reference range was not used to interpr et this result as karthikeyan l/abnormal. [facility]2019-12-30 05:41:00 Test Item Value Reference Range Interpretation Comments Alk Phos (test code = Alk Phos) 136 39-136 [facility]2019-12-30 05:41:00 Test Item Value Reference Range Interpretation Comments Bili Total (test code = Bili Total) 0.4 0.2-1.3 [facility]2019-12-30 05:41:00 Test Item Value Reference Range Interpretation Comments eGFR (test code = eGFR) 55 [facility]2019-12-30 05:41:00 Test Item Value Reference Range Interpretation Comments AGAP (test code = AGAP) 11.0 10.0-20.0 [facility]2019-12-30 05:41:00 Test Item Value Reference Range Interpretation Comments B/C Ratio (test code = B/C Ratio) 13 1 6-25 [facility]2019-12-30 05:41:00 Test Item Value Reference Range Interpretation Comments Globulin (test code = Globulin) 4.1 2.7-4.2 [facility]2019-12-30 05:41:00 Test Item Value Reference Range Interpretation Comments A/G Ratio (test code = A/G Ratio) 0.8 1 0.7-1.6 [facility]2019-12-30 05:41:00 Test Item Value Reference Range Interpretation Comments Magnesium Lvl (test code = Magnesium 2.3 1.8-2.4 Lvl) [facility]2019-12-30 05:41:00 Test Item Value Reference Range Interpretation Comments Phosphorus (test code = Phosphorus) 4.4 2.5-4.5 [facility] CentralQhtfhldGPTCNBRVRP6242-29-07 05:41:00 Test Item Value Reference Range Interpretation Comments WBC (test code = WBC) 14.9 3.7-10.4 [facility] CentralUdndjfqIQZPODWSBG4275-78-20 05:41:00 Test Item Value Reference Range Interpretation Comments RBC (test code = RBC) 4.11 4.20-5.40 [facility] CentralTptwtoiKNQOARCWFM0167-64-02 05:41:00 Test Item Value Reference Range Interpretation Comments Hgb (test code = Hgb) 12.6 12.0-16.0 [facility] CentralCbogukgEXDWWRJOKH1362-87-99 05:41:00 Test Item Value Reference Range Interpretation Comments Hct (test code = Hct) 38.1 36.0-48.0 [facility] CentralGsmbjqdKVJAABZWKD8488-85-86 05:41:00 Test Item Value Reference Range Interpretation Comments MCV (test code = MCV) 92.8 80.0-98.0 [facility] CentralEomoaaaXYJOVNRLBW7998-67-96 05:41:00 Test Item Value Reference Range Interpretation Comments MCH (test code = MCH) 30.7 pg 27.0-31.0 [facility] CentralQgrrenrMSWCMKUQPV0877-62-25 05:41:00 Test Item Value Reference Range Interpretation Comments MCHC (test code = MCHC) 33.1 32.0-36.0 [facility] CentralIcvxzzmYKHAHZJNKI0471-03-87 05:41:00 Test Item Value Reference Range Interpretation Comments RDW (test code = RDW) 15.2 11.5-14.5 [facility] CentralQnmgcawXJNRHNYUKA0407-84-80 05:41:00 Test Item Value Reference Range Interpretation Comments Platelet (test code = Platelet) 372 133-450 [facility] CentralKdnevxvWJTAXTJIUZ9532-61-37 05:41:00 Test Item Value Reference Range Interpretation Comments MPV (test code = MPV) 8.3 7.4-10.4 [facility] CentralVgbqdpaVRXRFWITPJ7886-81-52 05:41:00 Test Item Value Reference Range Interpretation Comments INR (test code = INR) 1.07 1 0.85-1.17 [facility] CentralUmjqnnmCWZQZQWKBE0146-07-61 05:41:00 Test Item Value Reference Range Interpretation Comments PT (test code = PT) 13.9 s 12.0-14.7 [facility] CentralRczorfwEJHQRFCNSP0161-48-77 05:41:00 Test Item Value Reference Range Interpretation Comments PTT (test code = PTT) 34.8 s 22.9-35.8 [facility] CentralMtzftffWNGXUJSEXS2677-51-78 05:41:00 Test Item Value Reference Range Interpretation Comments RBC Morph (test code = Normal (09/14/19 11:41 RBC Morph) PM) [facility] CentralFflmbllRNBHSCSZIH1519-15-44 05:41:00 Test Item Value Reference Range Interpretation Comments Plt Morph (test code = Normal (09/14/19 11:41 Plt Morph) PM) [facility] CentralSjjxvquHQIJUOEVLE9012-64-22 05:41:00 Test Item Value Reference Range Interpretation Comments Segs (test code = Segs) 94.6 45.0-75.0 [facility] CentralOsuqorqVSIYLSECZV4261-84-54 05:41:00 Test Item Value Reference Range Interpretation Comments Lymphocytes (test code = Lymphocytes) 3.9 20.0-40.0 [facility] CentralQixcpovAZJVZXQXLD0729-74-59 05:41:00 Test Item Value Reference Range Interpretation Comments Monocytes (test code = Monocytes) 1.1 2.0-12.0 [facility] CentralVwhqausIZXIMRUBAL8341-10-39 05:41:00 Test Item Value Reference Range Interpretation Comments Eosinophils (test code = 0.1 See_Comment [A utomated message] The Eosinophils) system which ge nerated this result tra nsmitted reference range : <=4.0. The reference r maría was not used to int erpret this result as normal/abnormal . [facility] CentralGukurusUTVQEVPKNL8308-92-45 05:41:00 Test Item Value Reference Range Interpretation Comments Basophils (test code = 0.3 See_Comment [Aut omated message] The Basophils) system which ge nerated this result tra nsmitted reference range : <=1.0. The reference r maría was not used to int erpret this result as normal/abnormal . [facility] CentralVsewtwuPTFXLRDJEM3654-46-10 05:41:00 Test Item Value Reference Range Interpretation Comments Neutrophils # (test code = Neutrophils 14.1 1.5-8.1 #) [facility] CentralGgnkvhtZMYFRWFJMQ3145-08-33 05:41:00 Test Item Value Reference Range Interpretation Comments Lymphocytes # (test code = Lymphocytes 0.6 1.0-5.5 #) [facility] CentralMcpuovbIAISMASOZI6551-20-81 05:41:00 Test Item Value Reference Range Interpretation Comments Monocytes # (test code 0.2 See_Comment [Aut omated message] The = Monocytes #) system which generated this result tra nsmitted reference range : <=0.8. The reference r maría was not used to int erpret this result as normal/abnormal . [facility] CenterPARATHYROID SPALVTK1908-52-14 05:41:00 Test Item Value Reference Range Interpretation Comments Ca Ion WB (test code = Ca Ion WB) 1.08 1.05-1.25 [facility]annPARATHYROID [id number] 05:41:00 Test Item Value Reference Range Interpretation Comments Ca Norm WB (test code = Ca Norm WB) 1.04 1.05-1.25 [facility] CenterBACTERIAL - [id number] 05:41:00 Test Item Value Reference Range Interpretation Comments MRSA by PCR (test Negative (09/14/19 11:41 code = MRSA by PCR) PM) [facility] HospitalEXPO CommunicationsCARDIAC [id number] 05:41:00 Test Item Value Reference Range Interpretation Comments BNP (test code = BNP) 488 [facility] HospitalEXPO CommunicationsCAROvonyxAC UPJNKWN7923-27-70 05:41:00 Test Item Value Reference Range Interpretation Comments Troponin-I (test code 0.26 See_Comment [Auto mated message] The = Troponin-I) system which g enerated this result transmit maria c reference range : <=0.40. The reference r maría was not used to interpr et this result as karthikeyan l/abnormal. [facility] [employer] UBJOU6810-14-44 05:41:00 Test Item Value Reference Range Interpretation Comments Procalcitonin Lvl (test 2.77 See_Comment [Au tomated message] code = Procalcitonin Lvl) Th e system which generated this result transmitted ref erence range: <=0.10. The reference range was not used to interpr et this result as normal/abnormal . [facility] [employer] [id number] 05:41:00 Test Item Value Reference Range Interpretation Comments Glucose Lvl (test code = Glucose Lvl) 134 70-99 [facility] [employer] [id number] 05:41:00 Test Item Value Reference Range Interpretation Comments BUN (test code = BUN) 13 7-22 [facility] [employer] [id number] 05:41:00 Test Item Value Reference Range Interpretation Comments Creatinine Lvl (test code = Creatinine 1.01 0.50-1.40 Lvl) [facility] HospitalMind Candy [id number] 05:41:00 Test Item Value Reference Range Interpretation Comments Sodium Lvl (test code = Sodium Lvl) 140 135-145 [facility]2019-12-30 05:41:00 Test Item Value Reference Range Interpretation Comments Potassium Lvl (test code = Potassium 4.0 3.5-5.1 Lvl) [facility]2019-12-30 05:41:00 Test Item Value Reference Range Interpretation Comments Chloride Lvl (test code = Chloride Lvl) 103 95-109 [facility]2019-12-30 05:41:00 Test Item Value Reference Range Interpretation Comments CO2 (test code = CO2) 30 24-32 [facility]2019-12-30 05:41:00 Test Item Value Reference Range Interpretation Comments Calcium Lvl (test code = Calcium Lvl) 8.8 8.5-10.5 [facility]2019-12-30 05:41:00 Test Item Value Reference Range Interpretation Comments Total Protein (test code = Total 7.3 6.4-8.4 Protein) [facility]2019-12-30 05:41:00 Test Item Value Reference Range Interpretation Comments Albumin Lvl (test code = Albumin Lvl) 3.2 3.5-5.0 [facility]2019-12-30 05:41:00 Test Item Value Reference Range Interpretation Comments ALT (test code = ALT) 19 See_Comment [Auto mated message] The system which ge nerated this result transmit maria c reference range : <=65. The reference range was not used to interpr et this result as karthikeyan l/abnormal. [facility]2019-12-30 05:41:00 Test Item Value Reference Range Interpretation Comments AST (test code = AST) 21 See_Comment [Auto mated message] The system which ge nerated this result transmit maria c reference range : <=37. The reference range was not used to interpr et this result as karthikeyan l/abnormal. [facility]2019-12-30 05:41:00 Test Item Value Reference Range Interpretation Comments Alk Phos (test code = Alk Phos) 136 39-136 [facility]2019-12-30 05:41:00 Test Item Value Reference Range Interpretation Comments Bili Total (test code = Bili Total) 0.4 0.2-1.3 [facility]2019-12-30 05:41:00 Test Item Value Reference Range Interpretation Comments eGFR (test code = eGFR) 55 [facility]Mind [facility] [id number] 05:41:00 Test Item Value Reference Range Interpretation Comments AGAP (test code = AGAP) 11.0 10.0-20.0 [facility] [id number] 05:41:00 Test Item Value Reference Range Interpretation Comments B/C Ratio (test code = B/C Ratio) 13 1 6-25 [facility] [id number] 05:41:00 Test Item Value Reference Range Interpretation Comments Globulin (test code = Globulin) 4.1 2.7-4.2 [facility] [id number] 05:41:00 Test Item Value Reference Range Interpretation Comments A/G Ratio (test code = A/G Ratio) 0.8 1 0.7-1.6 [facility] [id number] 05:41:00 Test Item Value Reference Range Interpretation Comments Magnesium Lvl (test code = Magnesium 2.3 1.8-2.4 Lvl) [facility] HospitalEXPO CommunicationsBACTERIAL - [id number] 05:41:00 Test Item Value Reference Range Interpretation Comments MRSA by PCR (test Negative (09/14/19 11:41 code = MRSA by PCR) PM) [facility] HospitalEXPO CommunicationsCARDIAC [id number] 05:41:00 Test Item Value Reference Range Interpretation Comments BNP (test code = BNP) 488 [facility] HospitalEXPO CommunicationsCAROvonyxAC [id number] 05:41:00 Test Item Value Reference Range Interpretation Comments Troponin-I (test code 0.26 See_Comment [Auto mated message] The = Troponin-I) system which g enerated this result transmit maria c reference range : <=0.40. The reference r maría was not used to interpr et this result as karthikeyan l/abnormal. [facility] [employer] [id number] 05:41:00 Test Item Value Reference Range Interpretation Comments Procalcitonin Lvl (test 2.77 See_Comment [Au tomated message] code = Procalcitonin Lvl) Th e system which generated this result transmitted ref erence range: <=0.10. The reference range was not used to interpr et this result as normal/abnormal . [facility] [employer] [id number] 05:41:00 Test Item Value Reference Range Interpretation Comments Phosphorus (test code = Phosphorus) 4.4 2.5-4.5 [facility]2019-12-30 05:41:00 Test Item Value Reference Range Interpretation Comments Glucose Lvl (test code = Glucose Lvl) 134 70-99 [facility]2019-12-30 05:41:00 Test Item Value Reference Range Interpretation Comments BUN (test code = BUN) 13 7-22 [facility]2019-12-30 05:41:00 Test Item Value Reference Range Interpretation Comments Creatinine Lvl (test code = Creatinine 1.01 0.50-1.40 Lvl) [facility]2019-12-30 05:41:00 Test Item Value Reference Range Interpretation Comments Sodium Lvl (test code = Sodium Lvl) 140 135-145 [facility] CentralZvzdpqrTNUTCRGFNB7004-27-32 05:41:00 Test Item Value Reference Range Interpretation Comments WBC (test code = WBC) 14.9 3.7-10.4 [facility]2019-12-30 05:41:00 Test Item Value Reference Range Interpretation Comments Potassium Lvl (test code = Potassium 4.0 3.5-5.1 Lvl) [facility]2019-12-30 05:41:00 Test Item Value Reference Range Interpretation Comments Chloride Lvl (test code = Chloride Lvl) 103 95-109 [facility]2019-12-30 05:41:00 Test Item Value Reference Range Interpretation Comments CO2 (test code = CO2) 30 24-32 [facility]2019-12-30 05:41:00 Test Item Value Reference Range Interpretation Comments Calcium Lvl (test code = Calcium Lvl) 8.8 8.5-10.5 [facility]2019-12-30 05:41:00 Test Item Value Reference Range Interpretation Comments Total Protein (test code = Total 7.3 6.4-8.4 Protein) [facility] CentralQpowexuCKTTEQHFPC8717-08-89 05:41:00 Test Item Value Reference Range Interpretation Comments RBC (test code = RBC) 4.11 4.20-5.40 [facility]2019-12-30 05:41:00 Test Item Value Reference Range Interpretation Comments Albumin Lvl (test code = Albumin Lvl) 3.2 3.5-5.0 [facility]2019-12-30 05:41:00 Test Item Value Reference Range Interpretation Comments ALT (test code = ALT) 19 See_Comment [Auto mated message] The system which ge nerated this result transmit maria c reference range : <=65. The reference range was not used to interpr et this result as karthikeyan l/abnormal. [facility] HospitalEXPO CommunicationsAMERICAN HEALTHCARE [id number] 05:41:00 Test Item Value Reference Range Interpretation Comments AST (test code = AST) 21 See_Comment [Auto mated message] The system which ge nerated this result transmit maria c reference range : <=37. The reference range was not used to interpr et this result as karthikeyan l/abnormal. [facility] HospitalEXPO CommunicationsAMERICAN HEALTHCARE [id number] 05:41:00 Test Item Value Reference Range Interpretation Comments Alk Phos (test code = Alk Phos) 136 39-136 [facility] CentralJvqelbsVZDKSXHZMN1177-64-95 05:41:00 Test Item Value Reference Range Interpretation Comments Hgb (test code = Hgb) 12.6 12.0-16.0 [facility]2019-12-30 05:41:00 Test Item Value Reference Range Interpretation Comments Bili Total (test code = Bili Total) 0.4 0.2-1.3 [facility]2019-12-30 05:41:00 Test Item Value Reference Range Interpretation Comments eGFR (test code = eGFR) 55 [facility]2019-12-30 05:41:00 Test Item Value Reference Range Interpretation Comments AGAP (test code = AGAP) 11.0 10.0-20.0 [facility]2019-12-30 05:41:00 Test Item Value Reference Range Interpretation Comments B/C Ratio (test code = B/C Ratio) 13 1 6-25 [facility]2019-12-30 05:41:00 Test Item Value Reference Range Interpretation Comments Globulin (test code = Globulin) 4.1 2.7-4.2 [facility] CentralOqczbssJZMXIFFTQV8564-55-05 05:41:00 Test Item Value Reference Range Interpretation Comments Hct (test code = Hct) 38.1 36.0-48.0 [facility]2019-12-30 05:41:00 Test Item Value Reference Range Interpretation Comments A/G Ratio (test code = A/G Ratio) 0.8 1 0.7-1.6 [facility]2019-12-30 05:41:00 Test Item Value Reference Range Interpretation Comments Magnesium Lvl (test code = Magnesium 2.3 1.8-2.4 Lvl) [facility]2019-12-30 05:41:00 Test Item Value Reference Range Interpretation Comments Phosphorus (test code = Phosphorus) 4.4 2.5-4.5 [facility] CentralCdmgugdFMWNLTPDPZ2873-12-19 05:41:00 Test Item Value Reference Range Interpretation Comments WBC (test code = WBC) 14.9 3.7-10.4 [facility] CentralXqzwizvCERWGXAJJQ6424-96-12 05:41:00 Test Item Value Reference Range Interpretation Comments RBC (test code = RBC) 4.11 4.20-5.40 [facility] CentralIpolojrCWWPKMDOVM3058-87-02 05:41:00 Test Item Value Reference Range Interpretation Comments Hgb (test code = Hgb) 12.6 12.0-16.0 [facility] CentralYjprrteYMWTFEYFZV5939-26-55 05:41:00 Test Item Value Reference Range Interpretation Comments Hct (test code = Hct) 38.1 36.0-48.0 [facility] CentralDofilemQBVGDFJWSU8083-07-65 05:41:00 Test Item Value Reference Range Interpretation Comments MCV (test code = MCV) 92.8 80.0-98.0 [facility] CentralNosvugvXYBTMXSNSB5829-62-45 05:41:00 Test Item Value Reference Range Interpretation Comments MCH (test code = MCH) 30.7 pg 27.0-31.0 [facility] CentralPqybjmfDPNCYGKVGU7991-67-61 05:41:00 Test Item Value Reference Range Interpretation Comments MCV (test code = MCV) 92.8 80.0-98.0 [facility] CentralSgzfxzdFCBVNQYUZD2120-91-86 05:41:00 Test Item Value Reference Range Interpretation Comments MCHC (test code = MCHC) 33.1 32.0-36.0 [facility] CentralKpjamtsHSZRLGEYVV7366-49-13 05:41:00 Test Item Value Reference Range Interpretation Comments RDW (test code = RDW) 15.2 11.5-14.5 [facility] CentralQbnvygoEVBZAOLXDZ8467-51-22 05:41:00 Test Item Value Reference Range Interpretation Comments Platelet (test code = Platelet) 372 133-450 [place]1959-12-30 05:41:00 Test Item Value Reference Range Interpretation Comments MPV (test code = MPV) 8.3 7.4-10.4 [facility] CentralBtasvwlRRVFPAJXCA6516-49-99 05:41:00 Test Item Value Reference Range Interpretation Comments INR (test code = INR) 1.07 1 0.85-1.17 [facility] CentralVccltlgNSSOUNOOJY1819-24-74 05:41:00 Test Item Value Reference Range Interpretation Comments PT (test code = PT) 13.9 s 12.0-14.7 [facility] CentralRuimtmhSBJOTRDAEV5712-47-29 05:41:00 Test Item Value Reference Range Interpretation Comments PTT (test code = PTT) 34.8 s 22.9-35.8 [facility] CentralUwnbokuRUXOBZAPGB9658-87-10 05:41:00 Test Item Value Reference Range Interpretation Comments RBC Morph (test code = Normal (09/14/19 11:41 RBC Morph) PM) [facility] CentralGpxcocuBKYGNBLRKJ8105-70-22 05:41:00 Test Item Value Reference Range Interpretation Comments Plt Morph (test code = Normal (09/14/19 11:41 Plt Morph) PM) [facility] CentralVpbgppmHOQYNGHVMP3817-87-59 05:41:00 Test Item Value Reference Range Interpretation Comments Segs (test code = Segs) 94.6 45.0-75.0 [facility] CentralVwixhptXBKZOWSEFR3503-41-09 05:41:00 Test Item Value Reference Range Interpretation Comments MCH (test code = MCH) 30.7 pg 27.0-31.0 [facility] CentralGffdjjtTPPWGHGVMK9181-58-91 05:41:00 Test Item Value Reference Range Interpretation Comments Lymphocytes (test code = Lymphocytes) 3.9 20.0-40.0 [facility] CentralWliwwvvZNIHGPIJVY5477-39-26 05:41:00 Test Item Value Reference Range Interpretation Comments Monocytes (test code = Monocytes) 1.1 2.0-12.0 [facility] CentralMelghegCOUXOWIAKS4037-54-55 05:41:00 Test Item Value Reference Range Interpretation Comments Eosinophils (test code = 0.1 See_Comment [A utomated message] The Eosinophils) system which ge nerated this result tra nsmitted reference range : <=4.0. The reference r maría was not used to int erpret this result as normal/abnormal . [facility] CentralEeerlxlIPDRUINJOH5670-12-15 05:41:00 Test Item Value Reference Range Interpretation Comments Basophils (test code = 0.3 See_Comment [Aut omated message] The Basophils) system which ge nerated this result tra nsmitted reference range : <=1.0. The reference r maría was not used to int erpret this result as normal/abnormal . [facility] CentralLwkfediSLELYCFILD3878-43-41 05:41:00 Test Item Value Reference Range Interpretation Comments Neutrophils # (test code = Neutrophils 14.1 1.5-8.1 #) [facility] CentralRvokxqeHIYBIQPARY9669-78-28 05:41:00 Test Item Value Reference Range Interpretation Comments Lymphocytes # (test code = Lymphocytes 0.6 1.0-5.5 #) [facility] CentralPtlhpruGXMJPBCXCP1254-96-26 05:41:00 Test Item Value Reference Range Interpretation Comments Monocytes # (test code 0.2 See_Comment [Aut omated message] The = Monocytes #) system which generated this result tra nsmitted reference range : <=0.8. The reference r maría was not used to int erpret this result as normal/abnormal . [facility]2019-12-30 05:41:00 Test Item Value Reference Range Interpretation Comments Ca Ion WB (test code = Ca Ion WB) 1.08 1.05-1.25 [facility] CentralTsfeelpFXQWYQVVJZ4236-03-31 05:41:00 Test Item Value Reference Range Interpretation Comments MCHC (test code = MCHC) 33.1 32.0-36.0 [facility]2019-12-30 05:41:00 Test Item Value Reference Range Interpretation Comments Ca Norm WB (test code = Ca Norm WB) 1.04 1.05-1.25 [facility] CentralMxqcjkdTIBYFJKBOX7966-58-43 05:41:00 Test Item Value Reference Range Interpretation Comments RDW (test code = RDW) 15.2 11.5-14.5 [facility] CentralSldytxfFSJLUIXWYY4508-30-76 05:41:00 Test Item Value Reference Range Interpretation Comments Platelet (test code = Platelet) 372 133-450 [facility] CentralFdyyxsvBAWHIRFWVO2311-75-90 05:41:00 Test Item Value Reference Range Interpretation Comments MPV (test code = MPV) 8.3 7.4-10.4 [facility] CentralIjxyznbAACAIIEJEQ6091-14-55 05:41:00 Test Item Value Reference Range Interpretation Comments INR (test code = INR) 1.07 1 0.85-1.17 [facility] CentralVfpdazgANDHJEUXRQ6648-15-61 05:41:00 Test Item Value Reference Range Interpretation Comments PT (test code = PT) 13.9 s 12.0-14.7 [facility] CentralRldvpolBVWWRRKXYT2518-20-04 05:41:00 Test Item Value Reference Range Interpretation Comments PTT (test code = PTT) 34.8 s 22.9-35.8 [facility] CentralBszykeiXJZXXKVWIR2577-51-95 05:41:00 Test Item Value Reference Range Interpretation Comments RBC Morph (test code = Normal (09/14/19 11:41 RBC Morph) PM) [facility] CentralXlkeotsCSCZOZGLWJ5206-69-86 05:41:00 Test Item Value Reference Range Interpretation Comments Plt Morph (test code = Normal (09/14/19 11:41 Plt Morph) PM) [facility] CentralCrzwyvkYZFPERNSXV1611-93-92 05:41:00 Test Item Value Reference Range Interpretation Comments Segs (test code = Segs) 94.6 45.0-75.0 [facility] CentralQpsyjluVGJOBPYOFW8327-92-36 05:41:00 Test Item Value Reference Range Interpretation Comments Lymphocytes (test code = Lymphocytes) 3.9 20.0-40.0 [facility] CentralAfzxfkvYZEEPBEFHI1638-50-03 05:41:00 Test Item Value Reference Range Interpretation Comments Monocytes (test code = Monocytes) 1.1 2.0-12.0 [facility] CentralViqkwdmMBFDFISFEX9919-75-68 05:41:00 Test Item Value Reference Range Interpretation Comments Eosinophils (test code = 0.1 See_Comment [A utomated message] The Eosinophils) system which nerated this result tra nsmitted reference range : <=4.0. The reference r maría was not used to int erpret this result as normal/abnormal . [facility] CentralIitmrgyDNINKHQPML4811-09-07 05:41:00 Test Item Value Reference Range Interpretation Comments Basophils (test code = 0.3 See_Comment [Aut omated message] The Basophils) system which ge nerated this result tra nsmitted reference range : <=1.0. The reference r maría was not used to int erpret this result as normal/abnormal . [facility] CentralFpplgixRFUNQCIUAH6910-76-33 05:41:00 Test Item Value Reference Range Interpretation Comments Neutrophils # (test code = Neutrophils 14.1 1.5-8.1 #) [facility] HospitalAzzvgyxJJFXDSCTAH6581-01-92 05:41:00 Test Item Value Reference Range Interpretation Comments Lymphocytes # (test code = Lymphocytes 0.6 1.0-5.5 #) [facility] CenterTydignsDKQITLMNJN8550-52-13 05:41:00 Test Item Value Reference Range Interpretation Comments Monocytes # (test code 0.2 See_Comment [Aut omated message] The = Monocytes #) system which generated this result tra nsmitted reference range : <=0.8. The reference r maría was not used to int erpret this result as normal/abnormal . [facility] CenterPARATHYROID ZMAWMPW0150-71-97 05:41:00 Test Item Value Reference Range Interpretation Comments Ca Ion WB (test code = Ca Ion WB) 1.08 1.05-1.25 [facility]ATH[facility] SQQDYOX5645-92-18 05:41:00 Test Item Value Reference Range Interpretation Comments Ca Norm WB (test code = Ca Norm WB) 1.04 1.05-1.25 [facility] CenterBACTERIAL - DFJXKFAT7744-78-14 05:41:00 Test Item Value Reference Range Interpretation Comments MRSA by PCR (test Negative (09/14/19 11:41 code = MRSA by PCR) PM) [facility] CenterCARDIAC ILPZXGW8269-12-97 05:41:00 Test Item Value Reference Range Interpretation Comments BNP (test code = BNP) [facility] [id number] 05:41:00 Test Item Value Reference Range Interpretation Comments Troponin-I (test code 0.26 See_Comment [Auto mated message] The = Troponin-I) system which g enerated this result transmit maria c reference range : <=0.40. The reference r maría was not used to interpr et this result as karthikeyan l/abnormal. [facility] [id number] 05:41:00 Test Item Value Reference Range Interpretation Comments Procalcitonin Lvl (test 2.77 See_Comment [Au tomated message] code = Procalcitonin Lvl) Th e system which generated this result transmitted ref erence range: <=0.10. The reference range was not used to interpr et this result as normal/abnormal . [facility]2019-12-30 05:41:00 Test Item Value Reference Range Interpretation Comments Glucose Lvl (test code = Glucose Lvl) 134 70-99 [facility]2019-12-30 05:41:00 Test Item Value Reference Range Interpretation Comments BUN (test code = BUN) 13 7-22 [facility]2019-12-30 05:41:00 Test Item Value Reference Range Interpretation Comments Creatinine Lvl (test code = Creatinine 1.01 0.50-1.40 Lvl) [facility]2019-12-30 05:41:00 Test Item Value Reference Range Interpretation Comments Sodium Lvl (test code = Sodium Lvl) 140 135-145 [facility]2019-12-30 05:41:00 Test Item Value Reference Range Interpretation Comments Potassium Lvl (test code = Potassium 4.0 3.5-5.1 Lvl) [facility]2019-12-30 05:41:00 Test Item Value Reference Range Interpretation Comments Chloride Lvl (test code = Chloride Lvl) 103 95-109 [facility]2019-12-30 05:41:00 Test Item Value Reference Range Interpretation Comments CO2 (test code = CO2) 30 24-32 [facility]2019-12-30 05:41:00 Test Item Value Reference Range Interpretation Comments Calcium Lvl (test code = Calcium Lvl) 8.8 8.5-10.5 [facility]2019-12-30 05:41:00 Test Item Value Reference Range Interpretation Comments Total Protein (test code = Total 7.3 6.4-8.4 Protein) [facility]2019-12-30 05:41:00 Test Item Value Reference Range Interpretation Comments Albumin Lvl (test code = Albumin Lvl) 3.2 3.5-5.0 [facility]2019-12-30 05:41:00 Test Item Value Reference Range Interpretation Comments ALT (test code = ALT) 19 See_Comment [Auto mated message] The system which ge nerated this result transmit maria c reference range : <=65. The reference range was not used to interpr et this result as karthikeyan l/abnormal. [facility]2019-12-30 05:41:00 Test Item Value Reference Range Interpretation Comments AST (test code = AST) 21 See_Comment [Auto mated message] The system which ge nerated this result transmit maria c reference range : <=37. The reference range was not used to interpr et this result as karthikeyan l/abnormal. [facility]2019-12-30 05:41:00 Test Item Value Reference Range Interpretation Comments Alk Phos (test code = Alk Phos) 136 39-136 [facility]2019-12-30 05:41:00 Test Item Value Reference Range Interpretation Comments Bili Total (test code = Bili Total) 0.4 0.2-1.3 [facility]2019-12-30 05:41:00 Test Item Value Reference Range Interpretation Comments eGFR (test code = eGFR) 55 [facility]2019-12-30 05:41:00 Test Item Value Reference Range Interpretation Comments AGAP (test code = AGAP) 11.0 10.0-20.0 [facility]2019-12-30 05:41:00 Test Item Value Reference Range Interpretation Comments B/C Ratio (test code = B/C Ratio) 13 1 6-25 [facility]2019-12-30 05:41:00 Test Item Value Reference Range Interpretation Comments Globulin (test code = Globulin) 4.1 2.7-4.2 [facility]2019-12-30 05:41:00 Test Item Value Reference Range Interpretation Comments A/G Ratio (test code = A/G Ratio) 0.8 1 0.7-1.6 [facility]2019-12-30 05:41:00 Test Item Value Reference Range Interpretation Comments Magnesium Lvl (test code = Magnesium 2.3 1.8-2.4 Lvl) [facility]2019-12-30 05:41:00 Test Item Value Reference Range Interpretation Comments Phosphorus (test code = Phosphorus) 4.4 2.5-4.5 [facility] CentralYipfuapALRYQYEICD7217-64-78 05:41:00 Test Item Value Reference Range Interpretation Comments WBC (test code = WBC) 14.9 3.7-10.4 [facility] CentralPubytflSPISBYJWKI0371-93-08 05:41:00 Test Item Value Reference Range Interpretation Comments RBC (test code = RBC) 4.11 4.20-5.40 [facility] CentralHheycuwHOMPQLSMPG3115-31-48 05:41:00 Test Item Value Reference Range Interpretation Comments Hgb (test code = Hgb) 12.6 12.0-16.0 [facility] CentralRrrlntnOYJETBANKA6126-52-04 05:41:00 Test Item Value Reference Range Interpretation Comments Hct (test code = Hct) 38.1 36.0-48.0 [facility] CentralVjzcuusGMGCKWYCXT5881-71-63 05:41:00 Test Item Value Reference Range Interpretation Comments MCV (test code = MCV) 92.8 80.0-98.0 [facility] CentralMzfbdytIBKNOUOEES5723-78-02 05:41:00 Test Item Value Reference Range Interpretation Comments MCH (test code = MCH) 30.7 pg 27.0-31.0 [facility] CentralVwoqssuNIRULEZSTZ7831-49-73 05:41:00 Test Item Value Reference Range Interpretation Comments MCHC (test code = MCHC) 33.1 32.0-36.0 [facility] CentralHkkdtqeNBMMSYPYBE2970-61-79 05:41:00 Test Item Value Reference Range Interpretation Comments RDW (test code = RDW) 15.2 11.5-14.5 [facility] CentralIpubofcYUJYHPDOBJ2504-49-18 05:41:00 Test Item Value Reference Range Interpretation Comments Platelet (test code = Platelet) 372 133-450 [facility] CentralApiehdrIZPIZJJZMK2659-75-31 05:41:00 Test Item Value Reference Range Interpretation Comments MPV (test code = MPV) 8.3 7.4-10.4 [facility] CentralMxghoffCFXNPTDSBJ1409-82-09 05:41:00 Test Item Value Reference Range Interpretation Comments INR (test code = INR) 1.07 1 0.85-1.17 [facility] CentralVyyhkfcHXHMCBUNUL9792-62-29 05:41:00 Test Item Value Reference Range Interpretation Comments PT (test code = PT) 13.9 s 12.0-14.7 [facility] CentralDhixlmaDUHADFLXNC6352-68-73 05:41:00 Test Item Value Reference Range Interpretation Comments PTT (test code = PTT) 34.8 s 22.9-35.8 [facility] CentralRbqdymbUBEGIGAMFW2023-38-45 05:41:00 Test Item Value Reference Range Interpretation Comments RBC Morph (test code = Normal (09/14/19 11:41 RBC Morph) PM) [facility] CentralToksjuvGQQJKCQPFR9359-39-51 05:41:00 Test Item Value Reference Range Interpretation Comments Plt Morph (test code = Normal (09/14/19 11:41 Plt Morph) PM) [facility] CentralGskgdvsTKNXMYDSYD8105-99-95 05:41:00 Test Item Value Reference Range Interpretation Comments Segs (test code = Segs) 94.6 45.0-75.0 [facility] CentralQsfsdgyYNSUNNVMDQ4444-76-31 05:41:00 Test Item Value Reference Range Interpretation Comments Lymphocytes (test code = Lymphocytes) 3.9 20.0-40.0 [facility] CentralUlehaimVEBOMNHUSZ4822-62-96 05:41:00 Test Item Value Reference Range Interpretation Comments Monocytes (test code = Monocytes) 1.1 2.0-12.0 [facility] CentralQthaxoaRHWDOZXRYS3441-31-32 05:41:00 Test Item Value Reference Range Interpretation Comments Eosinophils (test code = 0.1 See_Comment [A utomated message] The Eosinophils) system which ge nerated this result tra nsmitted reference range : <=4.0. The reference r maría was not used to int erpret this result as normal/abnormal . [facility] CentralGxuubevORTELOGONW1729-27-03 05:41:00 Test Item Value Reference Range Interpretation Comments Basophils (test code = 0.3 See_Comment [Aut omated message] The Basophils) system which ge nerated this result tra nsmitted reference range : <=1.0. The reference r maría was not used to int erpret this result as normal/abnormal . [facility] CentralNdokyprKDLFOXHFLU2543-44-42 05:41:00 Test Item Value Reference Range Interpretation Comments Neutrophils # (test code = Neutrophils 14.1 1.5-8.1 #) [facility] CentralRlztqexRPBVDVQTUD5493-88-91 05:41:00 Test Item Value Reference Range Interpretation Comments Lymphocytes # (test code = Lymphocytes 0.6 1.0-5.5 #) [facility] CentralTwpiwrlULHIFGJBKT0638-02-53 05:41:00 Test Item Value Reference Range Interpretation Comments Monocytes # (test code 0.2 See_Comment [Aut omated message] The = Monocytes #) system which generated this result tra nsmitted reference range : <=0.8. The reference r maría was not used to int erpret this result as normal/abnormal . [facility] CenterPARATHYROID [id number] 05:41:00 Test Item Value Reference Range Interpretation Comments Ca Ion WB (test code = Ca Ion WB) 1.08 1.05-1.25 [facility] CenterPARATHYROID [id number] 05:41:00 Test Item Value Reference Range Interpretation Comments Ca Norm WB (test code = Ca Norm WB) 1.04 1.05-1.25 [facility] CenterBACTERIAL - [id number] 05:41:00 Test Item Value Reference Range Interpretation Comments MRSA by PCR (test Negative (09/14/19 11:41 code = MRSA by PCR) PM) [facility] HospitalEXPO CommunicationsCARDIAC [id number] 05:41:00 Test Item Value Reference Range Interpretation Comments BNP (test code = BNP) 488 [facility] HospitalGoodzerAC [id number] 05:41:00 Test Item Value Reference Range Interpretation Comments Troponin-I (test code 0.26 See_Comment [Auto mated message] The = Troponin-I) system which g enerated this result transmit maria c reference range : <=0.40. The reference r maría was not used to interpr et this result as karthikeyan l/abnormal. [facility] [employer] [id number] 05:41:00 Test Item Value Reference Range Interpretation Comments Procalcitonin Lvl (test 2.77 See_Comment [Au tomated message] code = Procalcitonin Lvl) Th e system which generated this result transmitted ref erence range: <=0.10. The reference range was not used to interpr et this result as normal/abnormal . [facility] [employer] [id number] 05:41:00 Test Item Value Reference Range Interpretation Comments Glucose Lvl (test code = Glucose Lvl) 134 70-99 [facility] [employer] [id number] 05:41:00 Test Item Value Reference Range Interpretation Comments BUN (test code = BUN) 13 7-22 [facility] HospitalMind Candy [id number] 05:41:00 Test Item Value Reference Range Interpretation Comments Creatinine Lvl (test code = Creatinine 1.01 0.50-1.40 Lvl) [facility] HospitalMind Candy [id number] 05:41:00 Test Item Value Reference Range Interpretation Comments Sodium Lvl (test code = Sodium Lvl) 140 135-145 [facility] [employer] [id number] 05:41:00 Test Item Value Reference Range Interpretation Comments Potassium Lvl (test code = Potassium 4.0 3.5-5.1 Lvl) [facility]2019-12-30 05:41:00 Test Item Value Reference Range Interpretation Comments Chloride Lvl (test code = Chloride Lvl) 103 95-109 [facility]2019-12-30 05:41:00 Test Item Value Reference Range Interpretation Comments CO2 (test code = CO2) 30 24-32 [facility]2019-12-30 05:41:00 Test Item Value Reference Range Interpretation Comments Calcium Lvl (test code = Calcium Lvl) 8.8 8.5-10.5 [facility]2019-12-30 05:41:00 Test Item Value Reference Range Interpretation Comments Total Protein (test code = Total 7.3 6.4-8.4 Protein) [facility]2019-12-30 05:41:00 Test Item Value Reference Range Interpretation Comments Albumin Lvl (test code = Albumin Lvl) 3.2 3.5-5.0 [facility]2019-12-30 05:41:00 Test Item Value Reference Range Interpretation Comments ALT (test code = ALT) 19 See_Comment [Auto mated message] The system which ge nerated this result transmit maria c reference range : <=65. The reference range was not used to interpr et this result as karthikeyan l/abnormal. [facility]2019-12-30 05:41:00 Test Item Value Reference Range Interpretation Comments AST (test code = AST) 21 See_Comment [Auto mated message] The system which ge nerated this result transmit maria c reference range : <=37. The reference range was not used to interpr et this result as karthikeyan l/abnormal. [facility]2019-12-30 05:41:00 Test Item Value Reference Range Interpretation Comments Alk Phos (test code = Alk Phos) 136 39-136 [facility]2019-12-30 05:41:00 Test Item Value Reference Range Interpretation Comments Bili Total (test code = Bili Total) 0.4 0.2-1.3 [facility]2019-12-30 05:41:00 Test Item Value Reference Range Interpretation Comments eGFR (test code = eGFR) 55 [facility]2019-12-30 05:41:00 Test Item Value Reference Range Interpretation Comments AGAP (test code = AGAP) 11.0 10.0-20.0 [facility]2019-12-30 05:41:00 Test Item Value Reference Range Interpretation Comments B/C Ratio (test code = B/C Ratio) 13 1 6-25 [facility]2019-12-30 05:41:00 Test Item Value Reference Range Interpretation Comments Globulin (test code = Globulin) 4.1 2.7-4.2 [facility]2019-12-30 05:41:00 Test Item Value Reference Range Interpretation Comments A/G Ratio (test code = A/G Ratio) 0.8 1 0.7-1.6 [facility]2019-12-30 05:41:00 Test Item Value Reference Range Interpretation Comments Magnesium Lvl (test code = Magnesium 2.3 1.8-2.4 Lvl) [facility]2019-12-30 05:41:00 Test Item Value Reference Range Interpretation Comments Phosphorus (test code = Phosphorus) 4.4 2.5-4.5 [facility] CentralOrfmfyeIWZPSOIEVI6347-69-45 05:41:00 Test Item Value Reference Range Interpretation Comments WBC (test code = WBC) 14.9 3.7-10.4 [facility] CentralVbvwoxnWUOGEVWZMC5415-26-19 05:41:00 Test Item Value Reference Range Interpretation Comments RBC (test code = RBC) 4.11 4.20-5.40 [facility] CentralQlxtqcfXDZPRWAMBP6265-69-56 05:41:00 Test Item Value Reference Range Interpretation Comments Hgb (test code = Hgb) 12.6 12.0-16.0 [facility] CentralOesinmiDPSYLDUNDV9087-21-35 05:41:00 Test Item Value Reference Range Interpretation Comments Hct (test code = Hct) 38.1 36.0-48.0 [facility] CentralSjdlmmaYQIACQQOPK4926-34-98 05:41:00 Test Item Value Reference Range Interpretation Comments MCV (test code = MCV) 92.8 80.0-98.0 [facility] CentralRigjjqsNQXLXWAGYX9992-48-48 05:41:00 Test Item Value Reference Range Interpretation Comments MCH (test code = MCH) 30.7 pg 27.0-31.0 [place] 111959-12-30 05:41:00 Test Item Value Reference Range Interpretation Comments MCHC (test code = MCHC) 33.1 32.0-36.0 [facility] CentralTtwejexYJWKPKSFAB2341-44-65 05:41:00 Test Item Value Reference Range Interpretation Comments RDW (test code = RDW) 15.2 11.5-14.5 [facility] CentralDkctnzbCFGIIGSVQY3714-63-81 05:41:00 Test Item Value Reference Range Interpretation Comments Platelet (test code = Platelet) 372 133-450 [facility] CentralMmalladTKZVDJXBPM5438-62-56 05:41:00 Test Item Value Reference Range Interpretation Comments MPV (test code = MPV) 8.3 7.4-10.4 [facility] CentralYmdjfpyNMRDYJRWMH4029-72-70 05:41:00 Test Item Value Reference Range Interpretation Comments INR (test code = INR) 1.07 1 0.85-1.17 [facility] CentralPfybbslRVTDSJUCND1187-89-78 05:41:00 Test Item Value Reference Range Interpretation Comments PT (test code = PT) 13.9 s 12.0-14.7 [facility] CentralVdfyproIJWQDMOSGA1892-00-48 05:41:00 Test Item Value Reference Range Interpretation Comments PTT (test code = PTT) 34.8 s 22.9-35.8 [facility] CentralRhbatrtUIEAWECYOV6273-33-51 05:41:00 Test Item Value Reference Range Interpretation Comments RBC Morph (test code = Normal (09/14/19 11:41 RBC Morph) PM) [facility] CentralCvgwovqOHTBFSLQML5200-52-06 05:41:00 Test Item Value Reference Range Interpretation Comments Plt Morph (test code = Normal (09/14/19 11:41 Plt Morph) PM) [facility] CentralQdtungiAVWYLFRHPA2574-94-01 05:41:00 Test Item Value Reference Range Interpretation Comments Segs (test code = Segs) 94.6 45.0-75.0 [facility] CentralVgyvrxbGKBESLOKAW8033-41-02 05:41:00 Test Item Value Reference Range Interpretation Comments Lymphocytes (test code = Lymphocytes) 3.9 20.0-40.0 [facility] CentralUdgfdtyMCSLCHZSDP5522-84-06 05:41:00 Test Item Value Reference Range Interpretation Comments Monocytes (test code = Monocytes) 1.1 2.0-12.0 [facility] CentralDjxamodSRKKUSMXTY5595-84-53 05:41:00 Test Item Value Reference Range Interpretation Comments Eosinophils (test code = 0.1 See_Comment [A utomated message] The Eosinophils) system which ge nerated this result tra nsmitted reference range : <=4.0. The reference r maría was not used to int erpret this result as normal/abnormal . [facility]MlbxhxqTOQRHLKLDK9244-22-37 05:41:00 Test Item Value Reference Range Interpretation Comments Basophils (test code = 0.3 See_Comment [Aut omated message] The Basophils) system which ge nerated this result tra nsmitted reference range : <=1.0. The reference r maría was not used to int erpret this result as normal/abnormal . [facility] CentralMyxhbhvGTLCEMFDIZ1755-90-82 05:41:00 Test Item Value Reference Range Interpretation Comments Neutrophils # (test code = Neutrophils 14.1 1.5-8.1 #) [facility] HospitalAtnilldVMNKKLOFHC8866-15-68 05:41:00 Test Item Value Reference Range Interpretation Comments Lymphocytes # (test code = Lymphocytes 0.6 1.0-5.5 #) [facility] HospitalDmmjwulSFAESZTJBT5299-62-70 05:41:00 Test Item Value Reference Range Interpretation Comments Monocytes # (test code 0.2 See_Comment [Aut omated message] The = Monocytes #) system which generated this result tra nsmitted reference range : <=0.8. The reference r maría was not used to int erpret this result as normal/abnormal . [facility] CenterPARATHYROID [id number] 05:41:00 Test Item Value Reference Range Interpretation Comments Ca Ion WB (test code = Ca Ion WB) 1.08 1.05-1.25 [facility] CenterPARATHYROID [id number] 05:41:00 Test Item Value Reference Range Interpretation Comments Ca Norm WB (test code = Ca Norm WB) 1.04 1.05-1.25 [facility] CenterBACTERIAL - [id number] 05:41:00 Test Item Value Reference Range Interpretation Comments MRSA by PCR (test Negative (09/14/19 11:41 code = MRSA by PCR) PM) [facility] HospitalannCARDIAC [id number] 05:41:00 Test Item Value Reference Range Interpretation Comments BNP (test code = BNP) 488 [facility] HospitalannCARDIAC [id number] 05:41:00 Test Item Value Reference Range Interpretation Comments Troponin-I (test code 0.26 See_Comment [Auto mated message] The = Troponin-I) system which g enerated this result transmit maria c reference range : <=0.40. The reference r maría was not used to interpr et this result as karthikeyan l/abnormal. [facility] CenterI Like My Wait[facility] [id number] 05:41:00 Test Item Value Reference Range Interpretation Comments Procalcitonin Lvl (test 2.77 See_Comment [Au tomated message] code = Procalcitonin Lvl) Th e system which generated this result transmitted ref erence range: <=0.10. The reference range was not used to interpr et this result as normal/abnormal . [facility] CenterI [facility] [id number] 05:41:00 Test Item Value Reference Range Interpretation Comments Glucose Lvl (test code = Glucose Lvl) 134 70-99 [facility] CenterI [facility] My [facility] [id number] 05:41:00 Test Item Value Reference Range Interpretation Comments BUN (test code = BUN) 13 7-22 [facility] HospitalMind [facility] [id number] 05:41:00 Test Item Value Reference Range Interpretation Comments Creatinine Lvl (test code = Creatinine 1.01 0.50-1.40 Lvl) [facility] CenterI [facility] [id number] 05:41:00 Test Item Value Reference Range Interpretation Comments Sodium Lvl (test code = Sodium Lvl) 140 135-145 [facility] HospitalMind [facility] [id number] 05:41:00 Test Item Value Reference Range Interpretation Comments Potassium Lvl (test code = Potassium 4.0 3.5-5.1 Lvl) [facility] CenterI [facility] [id number] 05:41:00 Test Item Value Reference Range Interpretation Comments Chloride Lvl (test code = Chloride Lvl) 103 95-109 [facility] HospitalMind [facility]andy [id number] 05:41:00 Test Item Value Reference Range Interpretation Comments CO2 (test code = CO2) 30 24-32 [facility] CenterI [facility] [id number] 05:41:00 Test Item Value Reference Range Interpretation Comments Calcium Lvl (test code = Calcium Lvl) 8.8 8.5-10.5 [facility] CenterI [facility] [id number] 05:41:00 Test Item Value Reference Range Interpretation Comments Total Protein (test code = Total 7.3 6.4-8.4 Protein) [facility]2019-12-30 05:41:00 Test Item Value Reference Range Interpretation Comments Albumin Lvl (test code = Albumin Lvl) 3.2 3.5-5.0 [facility]2019-12-30 05:41:00 Test Item Value Reference Range Interpretation Comments ALT (test code = ALT) 19 See_Comment [Auto mated message] The system which ge nerated this result transmit maria c reference range : <=65. The reference range was not used to interpr et this result as karthikeyan l/abnormal. [facility]2019-12-30 05:41:00 Test Item Value Reference Range Interpretation Comments AST (test code = AST) 21 See_Comment [Auto mated message] The system which ge nerated this result transmit maria c reference range : <=37. The reference range was not used to interpr et this result as karthikeyan l/abnormal. [facility]2019-12-30 05:41:00 Test Item Value Reference Range Interpretation Comments Alk Phos (test code = Alk Phos) 136 39-136 [facility]2019-12-30 05:41:00 Test Item Value Reference Range Interpretation Comments Bili Total (test code = Bili Total) 0.4 0.2-1.3 [facility]2019-12-30 05:41:00 Test Item Value Reference Range Interpretation Comments eGFR (test code = eGFR) 55 [facility]2019-12-30 05:41:00 Test Item Value Reference Range Interpretation Comments AGAP (test code = AGAP) 11.0 10.0-20.0 [facility]2019-12-30 05:41:00 Test Item Value Reference Range Interpretation Comments B/C Ratio (test code = B/C Ratio) 13 1 6-25 [facility]2019-12-30 05:41:00 Test Item Value Reference Range Interpretation Comments Globulin (test code = Globulin) 4.1 2.7-4.2 [facility]2019-12-30 05:41:00 Test Item Value Reference Range Interpretation Comments A/G Ratio (test code = A/G Ratio) 0.8 1 0.7-1.6 [facility]2019-12-30 05:41:00 Test Item Value Reference Range Interpretation Comments Magnesium Lvl (test code = Magnesium 2.3 1.8-2.4 Lvl) [facility]2019-12-30 05:41:00 Test Item Value Reference Range Interpretation Comments Phosphorus (test code = Phosphorus) 4.4 2.5-4.5 [facility] CentralLfveoyoQSRMVDJNXK4731-96-04 05:41:00 Test Item Value Reference Range Interpretation Comments WBC (test code = WBC) 14.9 3.7-10.4 [facility] CentralQsqcmxmRSQOTFZUWS4716-56-18 05:41:00 Test Item Value Reference Range Interpretation Comments RBC (test code = RBC) 4.11 4.20-5.40 [facility] CentralGarkfdiWXINQIJRTW2472-82-12 05:41:00 Test Item Value Reference Range Interpretation Comments Hgb (test code = Hgb) 12.6 12.0-16.0 [facility] CentralNberycmTDSIUFNQIZ7895-05-90 05:41:00 Test Item Value Reference Range Interpretation Comments Hct (test code = Hct) 38.1 36.0-48.0 [facility] CentralKsszubpUYBTUBKMBK2385-11-45 05:41:00 Test Item Value Reference Range Interpretation Comments MCV (test code = MCV) 92.8 80.0-98.0 [facility] CentralDjfehvaJYSCCUUVEY7392-36-25 05:41:00 Test Item Value Reference Range Interpretation Comments MCH (test code = MCH) 30.7 pg 27.0-31.0 [facility] CentralLmhgjyvVHNBEJXGDX2271-69-73 05:41:00 Test Item Value Reference Range Interpretation Comments MCHC (test code = MCHC) 33.1 32.0-36.0 [facility] CentralKezphtbQQKYPNIOSV4662-51-36 05:41:00 Test Item Value Reference Range Interpretation Comments RDW (test code = RDW) 15.2 11.5-14.5 [facility] CentralCcrlezuVFSAEEOACF2004-73-68 05:41:00 Test Item Value Reference Range Interpretation Comments Platelet (test code = Platelet) 372 954-450 [facility] CentralPokwwnkSKLJIDURHL2150-40-71 05:41:00 Test Item Value Reference Range Interpretation Comments MPV (test code = MPV) 8.3 7.4-10.4 [facility] CentralMrdlulnYHSOIWVYCD6673-10-51 05:41:00 Test Item Value Reference Range Interpretation Comments INR (test code = INR) 1.07 1 0.85-1.17 [facility] CentralJufwcsuUTARMDZQPI0929-36-81 05:41:00 Test Item Value Reference Range Interpretation Comments PT (test code = PT) 13.9 s 12.0-14.7 [facility] CentralOjahqqqMRYGVGPDAX0225-97-57 05:41:00 Test Item Value Reference Range Interpretation Comments PTT (test code = PTT) 34.8 s 22.9-35.8 [facility] CentralPqbqgekAWZKMVSMPE8130-78-15 05:41:00 Test Item Value Reference Range Interpretation Comments RBC Morph (test code = Normal (09/14/19 11:41 RBC Morph) PM) [facility] CentralIeyttkwDVTTSCUEQF2747-86-25 05:41:00 Test Item Value Reference Range Interpretation Comments Plt Morph (test code = Normal (09/14/19 11:41 Plt Morph) PM) [facility] CentralTpkfbyeBLFEIEDLDQ3816-29-92 05:41:00 Test Item Value Reference Range Interpretation Comments Segs (test code = Segs) 94.6 45.0-75.0 [facility] CentralWjoyfpxPFRDZLUNSY0107-26-77 05:41:00 Test Item Value Reference Range Interpretation Comments Lymphocytes (test code = Lymphocytes) 3.9 20.0-40.0 [facility] CentralMgtppneZJXMOKEORI3632-16-28 05:41:00 Test Item Value Reference Range Interpretation Comments Monocytes (test code = Monocytes) 1.1 2.0-12.0 [facility] CentralDmafkdzOMRQBALWQY5032-90-26 05:41:00 Test Item Value Reference Range Interpretation Comments Eosinophils (test code = 0.1 See_Comment [A utomated message] The Eosinophils) system which ge nerated this result tra nsmitted reference range : <=4.0. The reference r maría was not used to int erpret this result as normal/abnormal . [facility] CentralSivldnaUSSFNEIEQU6432-37-89 05:41:00 Test Item Value Reference Range Interpretation Comments Basophils (test code = 0.3 See_Comment [Aut omated message] The Basophils) system which ge nerated this result tra nsmitted reference range : <=1.0. The reference r maría was not used to int erpret this result as normal/abnormal . [facility] CentralQwtqzyvSWZGEFVGUI4383-46-15 05:41:00 Test Item Value Reference Range Interpretation Comments Neutrophils # (test code = Neutrophils 14.1 1.5-8.1 #) [facility] HospitalWnippofOLSNBAKVMB6384-42-20 05:41:00 Test Item Value Reference Range Interpretation Comments Lymphocytes # (test code = Lymphocytes 0.6 1.0-5.5 #) [facility] CenterPulbabjRECLRWZBIX6176-80-17 05:41:00 Test Item Value Reference Range Interpretation Comments Monocytes # (test code 0.2 See_Comment [Aut omated message] The = Monocytes #) system which generated this result tra nsmitted reference range : <=0.8. The reference r maría was not used to int erpret this result as normal/abnormal . [facility] CenterPARATHYROID CEFXFAV6301-44-76 05:41:00 Test Item Value Reference Range Interpretation Comments Ca Ion WB (test code = Ca Ion WB) 1.08 1.05-1.25 [facility]ATH[facility] LUKPWJX0266-65-48 05:41:00 Test Item Value Reference Range Interpretation Comments Ca Norm WB (test code = Ca Norm WB) 1.04 1.05-1.25 [facility] CenterBACTERIAL - CQHMRHRA9865-09-82 05:41:00 Test Item Value Reference Range Interpretation Comments MRSA by PCR (test Negative (09/14/19 11:41 code = MRSA by PCR) PM) [facility] HospitalannCARDIAC [id number] 05:41:00 Test Item Value Reference Range Interpretation Comments BNP (test code = BNP) 488 [facility] CenterCARDIAC HJVPCCC6109-06-81 05:41:00 Test Item Value Reference Range Interpretation Comments Troponin-I (test code 0.26 See_Comment [Auto mated message] The = Troponin-I) system which g enerated this result transmit maria c reference range : <=0.40. The reference r maría was not used to interpr et this result as karthikeyan l/abnormal. [facility] CenterCHEM AATAZ0851-84-32 05:41:00 Test Item Value Reference Range Interpretation Comments Procalcitonin Lvl (test 2.77 See_Comment [Au tomated message] code = Procalcitonin Lvl) Th e system which generated this result transmitted ref erence range: <=0.10. The reference range was not used to interpr et this result as normal/abnormal . [facility]2019-12-30 05:41:00 Test Item Value Reference Range Interpretation Comments Glucose Lvl (test code = Glucose Lvl) 134 70-99 [facility]2019-12-30 05:41:00 Test Item Value Reference Range Interpretation Comments BUN (test code = BUN) 13 7-22 [facility]2019-12-30 05:41:00 Test Item Value Reference Range Interpretation Comments Creatinine Lvl (test code = Creatinine 1.01 0.50-1.40 Lvl) [facility]2019-12-30 05:41:00 Test Item Value Reference Range Interpretation Comments Sodium Lvl (test code = Sodium Lvl) 140 135-145 [facility]2019-12-30 05:41:00 Test Item Value Reference Range Interpretation Comments Potassium Lvl (test code = Potassium 4.0 3.5-5.1 Lvl) [facility]2019-12-30 05:41:00 Test Item Value Reference Range Interpretation Comments Chloride Lvl (test code = Chloride Lvl) 103 95-109 [facility]2019-12-30 05:41:00 Test Item Value Reference Range Interpretation Comments CO2 (test code = CO2) 30 24-32 [facility]2019-12-30 05:41:00 Test Item Value Reference Range Interpretation Comments Calcium Lvl (test code = Calcium Lvl) 8.8 8.5-10.5 [facility]2019-12-30 05:41:00 Test Item Value Reference Range Interpretation Comments Total Protein (test code = Total 7.3 6.4-8.4 Protein) [facility]2019-12-30 05:41:00 Test Item Value Reference Range Interpretation Comments Albumin Lvl (test code = Albumin Lvl) 3.2 3.5-5.0 [facility]2019-12-30 05:41:00 Test Item Value Reference Range Interpretation Comments ALT (test code = ALT) 19 See_Comment [Auto mated message] The system which ge nerated this result transmit maria c reference range : <=65. The reference range was not used to interpr et this result as karthikeyan l/abnormal. [facility]2019-12-30 05:41:00 Test Item Value Reference Range Interpretation Comments AST (test code = AST) 21 See_Comment [Auto mated message] The system which ge nerated this result transmit maria c reference range : <=37. The reference range was not used to interpr et this result as karthikeyan l/abnormal. [facility]2019-12-30 05:41:00 Test Item Value Reference Range Interpretation Comments Alk Phos (test code = Alk Phos) 136 39-136 [facility]2019-12-30 05:41:00 Test Item Value Reference Range Interpretation Comments Bili Total (test code = Bili Total) 0.4 0.2-1.3 [facility]2019-12-30 05:41:00 Test Item Value Reference Range Interpretation Comments eGFR (test code = eGFR) 55 [facility]2019-12-30 05:41:00 Test Item Value Reference Range Interpretation Comments AGAP (test code = AGAP) 11.0 10.0-20.0 [facility]2019-12-30 05:41:00 Test Item Value Reference Range Interpretation Comments B/C Ratio (test code = B/C Ratio) 13 1 6-25 [facility]2019-12-30 05:41:00 Test Item Value Reference Range Interpretation Comments Globulin (test code = Globulin) 4.1 2.7-4.2 [facility]2019-12-30 05:41:00 Test Item Value Reference Range Interpretation Comments A/G Ratio (test code = A/G Ratio) 0.8 1 0.7-1.6 [facility]2019-12-30 05:41:00 Test Item Value Reference Range Interpretation Comments Magnesium Lvl (test code = Magnesium 2.3 1.8-2.4 Lvl) [facility]2019-12-30 05:41:00 Test Item Value Reference Range Interpretation Comments Phosphorus (test code = Phosphorus) 4.4 2.5-4.5 [facility] CentralDwirghjCUCNBBSHWS2150-94-00 05:41:00 Test Item Value Reference Range Interpretation Comments WBC (test code = WBC) 14.9 3.7-10.4 [facility] CentralQtktsduQWIKNWRBMH4376-35-04 05:41:00 Test Item Value Reference Range Interpretation Comments RBC (test code = RBC) 4.11 4.20-5.40 [place] 111959-12-30 05:41:00 Test Item Value Reference Range Interpretation Comments Hgb (test code = Hgb) 12.6 12.0-16.0 [facility] CentralSsjfnnzHJUUNHKPYM3539-35-05 05:41:00 Test Item Value Reference Range Interpretation Comments Hct (test code = Hct) 38.1 36.0-48.0 [facility] CentralRtrpfltJRUFJTSZDP3965-54-00 05:41:00 Test Item Value Reference Range Interpretation Comments MCV (test code = MCV) 92.8 80.0-98.0 [facility] CentralNnwjjpaPBETKAMTME6179-84-08 05:41:00 Test Item Value Reference Range Interpretation Comments MCH (test code = MCH) 30.7 pg 27.0-31.0 [facility] CentralYsirqlqAXCXNQODLJ9816-48-90 05:41:00 Test Item Value Reference Range Interpretation Comments MCHC (test code = MCHC) 33.1 32.0-36.0 [facility] CentralKdjqpbmMVRRBAHHXJ4574-21-90 05:41:00 Test Item Value Reference Range Interpretation Comments RDW (test code = RDW) 15.2 11.5-14.5 [facility] CentralBybeufdGAMNWQPTKD4801-95-74 05:41:00 Test Item Value Reference Range Interpretation Comments Platelet (test code = Platelet) 372 133-450 [facility] CentralStkfessSBPYEMLZTK0884-20-17 05:41:00 Test Item Value Reference Range Interpretation Comments MPV (test code = MPV) 8.3 7.4-10.4 [facility] CentralBqgwrbvZANHTUTPGU4768-71-42 05:41:00 Test Item Value Reference Range Interpretation Comments INR (test code = INR) 1.07 1 0.85-1.17 [facility] CentralXebqcvpRCOANUVBAX1864-01-27 05:41:00 Test Item Value Reference Range Interpretation Comments PT (test code = PT) 13.9 s 12.0-14.7 [facility] CentralZlmkjaoDDPSTFCKMG5563-88-04 05:41:00 Test Item Value Reference Range Interpretation Comments PTT (test code = PTT) 34.8 s 22.9-35.8 [facility] CentralGzrzgicHDBCXUQWRB6339-56-55 05:41:00 Test Item Value Reference Range Interpretation Comments RBC Morph (test code = Normal (09/14/19 11:41 RBC Morph) PM) [facility] CentralKljwoycDZUDHEQGEC7249-55-95 05:41:00 Test Item Value Reference Range Interpretation Comments Plt Morph (test code = Normal (09/14/19 11:41 Plt Morph) PM) [facility] CentralXjirryqIFPYRKCUKK2157-19-14 05:41:00 Test Item Value Reference Range Interpretation Comments Segs (test code = Segs) 94.6 45.0-75.0 [facility] CentralAzprdfqBCLULROUYR0507-64-06 05:41:00 Test Item Value Reference Range Interpretation Comments Lymphocytes (test code = Lymphocytes) 3.9 20.0-40.0 [facility] CentralObtaurcJBMPLGJGOI5044-89-95 05:41:00 Test Item Value Reference Range Interpretation Comments Monocytes (test code = Monocytes) 1.1 2.0-12.0 [facility] CentralDccewcgZEHLNPNPUN7123-33-82 05:41:00 Test Item Value Reference Range Interpretation Comments Eosinophils (test code = 0.1 See_Comment [A utomated message] The Eosinophils) system which ge nerated this result tra nsmitted reference range : <=4.0. The reference r maría was not used to int erpret this result as normal/abnormal . [facility] CentralEvqhntxRCDFRFCFNC0485-47-09 05:41:00 Test Item Value Reference Range Interpretation Comments Basophils (test code = 0.3 See_Comment [Aut omated message] The Basophils) system which ge nerated this result tra nsmitted reference range : <=1.0. The reference r maría was not used to int erpret this result as normal/abnormal . [facility] CentralVzptuygKEXFWBJGXP2158-36-52 05:41:00 Test Item Value Reference Range Interpretation Comments Neutrophils # (test code = Neutrophils 14.1 1.5-8.1 #) [facility] CentralMmhdgrhRWKSVQOWJX5513-08-77 05:41:00 Test Item Value Reference Range Interpretation Comments Lymphocytes # (test code = Lymphocytes 0.6 1.0-5.5 #) [facility] CentralHirvfekIYVAPLMSFK9045-79-50 05:41:00 Test Item Value Reference Range Interpretation Comments Monocytes # (test code 0.2 See_Comment [Aut omated message] The = Monocytes #) system which generated this result tra nsmitted reference range : <=0.8. The reference r maría was not used to int erpret this result as normal/abnormal . [facility]ATHY[facility]ID XEUWNTP3676-45-11 05:41:00 Test Item Value Reference Range Interpretation Comments Ca Ion WB (test code = Ca Ion WB) 1.08 1.05-1.25 [facility] HospitalEXPO CommunicationsPARATHYROID APVOHGI6049-23-22 05:41:00 Test Item Value Reference Range Interpretation Comments Ca Norm WB (test code = Ca Norm WB) 1.04 1.05-1.25 [facility] CenterBACTERIAL - PXJVYBJN2320-93-43 05:41:00 Test Item Value Reference Range Interpretation Comments MRSA by PCR (test Negative (09/14/19 11:41 code = MRSA by PCR) PM) [facility] HospitalEXPO CommunicationsCARDIAC [id number] 05:41:00 Test Item Value Reference Range Interpretation Comments BNP (test code = BNP) 488 [facility] HospitalGoodzerAC NOZHSLD7549-68-92 05:41:00 Test Item Value Reference Range Interpretation Comments Troponin-I (test code 0.26 See_Comment [Auto mated message] The = Troponin-I) system which g enerated this result transmit maria c reference range : <=0.40. The reference r maría was not used to interpr et this result as karthikeyan l/abnormal. [facility] [employer] FGZZF2125-42-26 05:41:00 Test Item Value Reference Range Interpretation Comments Procalcitonin Lvl (test 2.77 See_Comment [Au tomated message] code = Procalcitonin Lvl) Th e system which generated this result transmitted ref erence range: <=0.10. The reference range was not used to interpr et this result as normal/abnormal . [facility] [employer] [id number] 05:41:00 Test Item Value Reference Range Interpretation Comments Glucose Lvl (test code = Glucose Lvl) 134 70-99 [facility] [employer] RONLR5704-23-19 05:41:00 Test Item Value Reference Range Interpretation Comments BUN (test code = BUN) 13 7-22 [facility] [employer] UARMD4446-76-96 05:41:00 Test Item Value Reference Range Interpretation Comments Creatinine Lvl (test code = Creatinine 1.01 0.50-1.40 Lvl) [facility] HospitalMind Candy QONQT0109-45-12 05:41:00 Test Item Value Reference Range Interpretation Comments Sodium Lvl (test code = Sodium Lvl) 140 135-145 [facility] [employer] PRDLH7807-96-87 05:41:00 Test Item Value Reference Range Interpretation Comments Potassium Lvl (test code = Potassium 4.0 3.5-5.1 Lvl) [facility]2019-12-30 05:41:00 Test Item Value Reference Range Interpretation Comments Chloride Lvl (test code = Chloride Lvl) 103 95-109 [facility]2019-12-30 05:41:00 Test Item Value Reference Range Interpretation Comments CO2 (test code = CO2) 30 24-32 [facility]2019-12-30 05:41:00 Test Item Value Reference Range Interpretation Comments Calcium Lvl (test code = Calcium Lvl) 8.8 8.5-10.5 [facility]2019-12-30 05:41:00 Test Item Value Reference Range Interpretation Comments Total Protein (test code = Total 7.3 6.4-8.4 Protein) [facility]2019-12-30 05:41:00 Test Item Value Reference Range Interpretation Comments Albumin Lvl (test code = Albumin Lvl) 3.2 3.5-5.0 [facility]2019-12-30 05:41:00 Test Item Value Reference Range Interpretation Comments ALT (test code = ALT) 19 See_Comment [Auto mated message] The system which ge nerated this result transmit maria c reference range : <=65. The reference range was not used to interpr et this result as karthikeyan l/abnormal. [facility]2019-12-30 05:41:00 Test Item Value Reference Range Interpretation Comments AST (test code = AST) 21 See_Comment [Auto mated message] The system which ge nerated this result transmit maria c reference range : <=37. The reference range was not used to interpr et this result as karthikeyan l/abnormal. [facility]2019-12-30 05:41:00 Test Item Value Reference Range Interpretation Comments Alk Phos (test code = Alk Phos) 136 39-136 [facility]2019-12-30 05:41:00 Test Item Value Reference Range Interpretation Comments Bili Total (test code = Bili Total) 0.4 0.2-1.3 [facility]2019-12-30 05:41:00 Test Item Value Reference Range Interpretation Comments eGFR (test code = eGFR) 55 [facility]2019-12-30 05:41:00 Test Item Value Reference Range Interpretation Comments AGAP (test code = AGAP) 11.0 10.0-20.0 [facility]2019-12-30 05:41:00 Test Item Value Reference Range Interpretation Comments B/C Ratio (test code = B/C Ratio) 13 1 6-25 [facility]2019-12-30 05:41:00 Test Item Value Reference Range Interpretation Comments Globulin (test code = Globulin) 4.1 2.7-4.2 [facility]2019-12-30 05:41:00 Test Item Value Reference Range Interpretation Comments A/G Ratio (test code = A/G Ratio) 0.8 1 0.7-1.6 [facility]2019-12-30 05:41:00 Test Item Value Reference Range Interpretation Comments Magnesium Lvl (test code = Magnesium 2.3 1.8-2.4 Lvl) [facility]2019-12-30 05:41:00 Test Item Value Reference Range Interpretation Comments Phosphorus (test code = Phosphorus) 4.4 2.5-4.5 [facility] CentralXdgedktTRSFZMEMZV3133-50-90 05:41:00 Test Item Value Reference Range Interpretation Comments WBC (test code = WBC) 14.9 3.7-10.4 [facility] CentralKxypdjhGVTLKXUCQH6417-14-59 05:41:00 Test Item Value Reference Range Interpretation Comments RBC (test code = RBC) 4.11 4.20-5.40 [facility] CentralTrjllkgEGBRBQHRLA7969-97-57 05:41:00 Test Item Value Reference Range Interpretation Comments Hgb (test code = Hgb) 12.6 12.0-16.0 [facility] CentralWyfvhlnBCXRJDPDUR1207-52-16 05:41:00 Test Item Value Reference Range Interpretation Comments Hct (test code = Hct) 38.1 36.0-48.0 [facility] CentralJiermsoPLTOSUVSKH0183-07-86 05:41:00 Test Item Value Reference Range Interpretation Comments MCV (test code = MCV) 92.8 80.0-98.0 [facility] CentralMdszznuVQKNYHRRUV5951-96-03 05:41:00 Test Item Value Reference Range Interpretation Comments MCH (test code = MCH) 30.7 pg 27.0-31.0 [facility] CentralHtitzlnYSJETQENOG4937-53-99 05:41:00 Test Item Value Reference Range Interpretation Comments MCHC (test code = MCHC) 33.1 32.0-36.0 [facility] CentralOnncbknNLIDOUQDCM6888-78-69 05:41:00 Test Item Value Reference Range Interpretation Comments RDW (test code = RDW) 15.2 11.5-14.5 [facility] CentralAsmvxpmSICQATFDPM7317-22-63 05:41:00 Test Item Value Reference Range Interpretation Comments Platelet (test code = Platelet) 372 133-450 [facility] CentralBdvokkyOCTHDTHKFW4920-14-86 05:41:00 Test Item Value Reference Range Interpretation Comments MPV (test code = MPV) 8.3 7.4-10.4 [facility] CentralZgwwvglMYKGYOHXDZ0874-55-92 05:41:00 Test Item Value Reference Range Interpretation Comments INR (test code = INR) 1.07 1 0.85-1.17 [facility] CentralYwxgaliMBXENSYCWC4656-69-10 05:41:00 Test Item Value Reference Range Interpretation Comments PT (test code = PT) 13.9 s 12.0-14.7 [facility] CentralOkpzfsrOCXODLLYYV6371-85-02 05:41:00 Test Item Value Reference Range Interpretation Comments PTT (test code = PTT) 34.8 s 22.9-35.8 [facility] CentralJysnmmbPLLNJJDMIB0173-04-56 05:41:00 Test Item Value Reference Range Interpretation Comments RBC Morph (test code = Normal (09/14/19 11:41 RBC Morph) PM) [facility] CentralDqigdzkLOCMRLPQKW9305-51-96 05:41:00 Test Item Value Reference Range Interpretation Comments Plt Morph (test code = Normal (09/14/19 11:41 Plt Morph) PM) [facility] CentralAvzkbtiOJVRGYPWSK5781-73-25 05:41:00 Test Item Value Reference Range Interpretation Comments Segs (test code = Segs) 94.6 45.0-75.0 [facility] CentralUpvchsbBIPEZTOWEA6558-85-58 05:41:00 Test Item Value Reference Range Interpretation Comments Lymphocytes (test code = Lymphocytes) 3.9 20.0-40.0 [facility] CentralLjydvkfHOCOPVYPAZ7333-13-03 05:41:00 Test Item Value Reference Range Interpretation Comments Monocytes (test code = Monocytes) 1.1 2.0-12.0 [facility] CentralZuemkamUWTOLZRCNB6356-87-56 05:41:00 Test Item Value Reference Range Interpretation Comments Eosinophils (test code = 0.1 See_Comment [A utomated message] The Eosinophils) system which ge nerated this result tra nsmitted reference range : <=4.0. The reference r maría was not used to int erpret this result as normal/abnormal . [facility] CentralUehrgosBIGGCDCPOB4656-72-05 05:41:00 Test Item Value Reference Range Interpretation Comments Basophils (test code = 0.3 See_Comment [Aut omated message] The Basophils) system which ge nerated this result tra nsmitted reference range : <=1.0. The reference r maría was not used to int erpret this result as normal/abnormal . [facility] CentralEfxlqjxYEJDCIFOOB1077-59-36 05:41:00 Test Item Value Reference Range Interpretation Comments Neutrophils # (test code = Neutrophils 14.1 1.5-8.1 #) [facility] CentralTvfnlnhNAOEMKJNCL9899-82-71 05:41:00 Test Item Value Reference Range Interpretation Comments Lymphocytes # (test code = Lymphocytes 0.6 1.0-5.5 #) [facility] CentralNitsgfqOADNJTIMHC7688-22-21 05:41:00 Test Item Value Reference Range Interpretation Comments Monocytes # (test code 0.2 See_Comment [Aut omated message] The = Monocytes #) system which generated this result tra nsmitted reference range : <=0.8. The reference r maría was not used to int erpret this result as normal/abnormal . [facility]2019-12-30 05:41:00 Test Item Value Reference Range Interpretation Comments Ca Ion WB (test code = Ca Ion WB) 1.08 1.05-1.25 [facility]2019-12-30 05:41:00 Test Item Value Reference Range Interpretation Comments Ca Norm WB (test code = Ca Norm WB) 1.04 1.05-1.25 [facility]2019-09-15 10:10:00 Test Item Value Reference Range Interpretation Comments Glucose Lvl (test code = Glucose Lvl) 78 70-99 [facility]2019-09-15 10:10:00 Test Item Value Reference Range Interpretation Comments BUN (test code = BUN) 16 7-22 [facility]2019-09-15 10:10:00 Test Item Value Reference Range Interpretation Comments Creatinine Lvl (test code = Creatinine 0.80 0.50-1.40 Lvl) [facility]2019-09-15 10:10:00 Test Item Value Reference Range Interpretation Comments Sodium Lvl (test code = Sodium Lvl) 138 135-145 [facility]2019-09-15 10:10:00 Test Item Value Reference Range Interpretation Comments Potassium Lvl (test code = Potassium 4.2 3.5-5.1 Lvl) [facility]2019-09-15 10:10:00 Test Item Value Reference Range Interpretation Comments Chloride Lvl (test code = Chloride Lvl) 102 95-109 [facility]2019-09-15 10:10:00 Test Item Value Reference Range Interpretation Comments CO2 (test code = CO2) 30 24-32 [facility]2019-09-15 10:10:00 Test Item Value Reference Range Interpretation Comments Calcium Lvl (test code = Calcium Lvl) 9.0 8.5-10.5 [facility]2019-09-15 10:10:00 Test Item Value Reference Range Interpretation Comments AGAP (test code = AGAP) 10.2 10.0-20.0 [facility]2019-09-15 10:10:00 Test Item Value Reference Range Interpretation Comments eGFR (test code = eGFR) 72 [facility]NqgodtdWICQLAIWPP1923-58-50 10:10:00 Test Item Value Reference Range Interpretation Comments WBC (test code = WBC) 9.7 3.7-10.4 [facility] CentralVwpnksvQNZVJFSOHL2420-73-27 10:10:00 Test Item Value Reference Range Interpretation Comments RBC (test code = RBC) 3.56 4.20-5.40 [facility] CentralOpkbhnlVYQLGQIQOY3109-28-30 10:10:00 Test Item Value Reference Range Interpretation Comments Hgb (test code = Hgb) 11.6 12.0-16.0 [facility] CentralOpnjzttWQKCJDSEME8310-92-32 10:10:00 Test Item Value Reference Range Interpretation Comments Hct (test code = Hct) 34.9 36.0-48.0 [facility] CentralShzwjozFDFEXLOFFZ6724-54-10 10:10:00 Test Item Value Reference Range Interpretation Comments MCV (test code = MCV) 98.1 80.0-98.0 [facility] CentralPbeisfqUFBWLESXAX8140-29-91 10:10:00 Test Item Value Reference Range Interpretation Comments MCH (test code = MCH) 32.7 pg 27.0-31.0 [facility] CentralArwezipFNVELYXTJB6383-59-58 10:10:00 Test Item Value Reference Range Interpretation Comments MCHC (test code = MCHC) 33.4 32.0-36.0 [facility] CentralOyewruzFLXSQFQGFV5293-56-93 10:10:00 Test Item Value Reference Range Interpretation Comments RDW (test code = RDW) 15.5 11.5-14.5 [facility] CentralRrwbzllTZYRONMLOZ4287-38-43 10:10:00 Test Item Value Reference Range Interpretation Comments Platelet (test code = Platelet) 288 133-450 [facility] CentralVvfcpkjGUOOFFQLLG2540-00-72 10:10:00 Test Item Value Reference Range Interpretation Comments MPV (test code = MPV) 9.0 7.4-10.4 [facility]2019-09-15 10:10:00 Test Item Value Reference Range Interpretation Comments Glucose Lvl (test code = Glucose Lvl) 78 70-99 [facility]2019-09-15 10:10:00 Test Item Value Reference Range Interpretation Comments BUN (test code = BUN) 16 7-22 [facility]2019-09-15 10:10:00 Test Item Value Reference Range Interpretation Comments Creatinine Lvl (test code = Creatinine 0.80 0.50-1.40 Lvl) [facility]2019-09-15 10:10:00 Test Item Value Reference Range Interpretation Comments Sodium Lvl (test code = Sodium Lvl) 138 135-145 [facility]2019-09-15 10:10:00 Test Item Value Reference Range Interpretation Comments Potassium Lvl (test code = Potassium 4.2 3.5-5.1 Lvl) [facility]2019-09-15 10:10:00 Test Item Value Reference Range Interpretation Comments Chloride Lvl (test code = Chloride Lvl) 102 95-109 [facility]2019-09-15 10:10:00 Test Item Value Reference Range Interpretation Comments CO2 (test code = CO2) 30 24-32 [facility]2019-09-15 10:10:00 Test Item Value Reference Range Interpretation Comments Calcium Lvl (test code = Calcium Lvl) 9.0 8.5-10.5 [facility]2019-09-15 10:10:00 Test Item Value Reference Range Interpretation Comments AGAP (test code = AGAP) 10.2 10.0-20.0 [facility]2019-09-15 10:10:00 Test Item Value Reference Range Interpretation Comments eGFR (test code = eGFR) 72 [facility] CentralUuthxfwTFKBFAUQPF9948-86-83 10:10:00 Test Item Value Reference Range Interpretation Comments WBC (test code = WBC) 9.7 3.7-10.4 [facility] CentralQjnugzkVTSONBYKHC9609-20-39 10:10:00 Test Item Value Reference Range Interpretation Comments RBC (test code = RBC) 3.56 4.20-5.40 [facility] CentralHvuxdehMSGUJCYRCP0613-18-80 10:10:00 Test Item Value Reference Range Interpretation Comments Hgb (test code = Hgb) 11.6 12.0-16.0 [facility] CentralCqlgxicYDEPINDIPM2226-41-70 10:10:00 Test Item Value Reference Range Interpretation Comments Hct (test code = Hct) 34.9 36.0-48.0 [facility] CentralNatmrhzHZXBZAYGTY6983-62-91 10:10:00 Test Item Value Reference Range Interpretation Comments MCV (test code = MCV) 98.1 80.0-98.0 [facility] CentralGzjbjzlLBMIVKAWYS1987-66-04 10:10:00 Test Item Value Reference Range Interpretation Comments MCH (test code = MCH) 32.7 pg 27.0-31.0 [facility] CentralUyqwyffPEMAXBETQL4616-31-10 10:10:00 Test Item Value Reference Range Interpretation Comments MCHC (test code = MCHC) 33.4 32.0-36.0 [facility] CentralJymttmiTKBJOGEEKJ4996-37-36 10:10:00 Test Item Value Reference Range Interpretation Comments RDW (test code = RDW) 15.5 11.5-14.5 [facility] CentralUykhjneAOBIANFMOI8290-39-00 10:10:00 Test Item Value Reference Range Interpretation Comments Platelet (test code = Platelet) 288 133-450 [facility] CentralYzessvqJJRWQDGWQK3386-32-81 10:10:00 Test Item Value Reference Range Interpretation Comments MPV (test code = MPV) 9.0 7.4-10.4 [facility]2019-09-15 10:10:00 Test Item Value Reference Range Interpretation Comments Glucose Lvl (test code = Glucose Lvl) 78 70-99 [facility]2019-09-15 10:10:00 Test Item Value Reference Range Interpretation Comments BUN (test code = BUN) 16 7-22 [facility]2019-09-15 10:10:00 Test Item Value Reference Range Interpretation Comments Creatinine Lvl (test code = Creatinine 0.80 0.50-1.40 Lvl) [facility]2019-09-15 10:10:00 Test Item Value Reference Range Interpretation Comments Sodium Lvl (test code = Sodium Lvl) 138 135-145 [facility]2019-09-15 10:10:00 Test Item Value Reference Range Interpretation Comments Potassium Lvl (test code = Potassium 4.2 3.5-5.1 Lvl) [facility]2019-09-15 10:10:00 Test Item Value Reference Range Interpretation Comments Chloride Lvl (test code = Chloride Lvl) 102 95-109 [facility]2019-09-15 10:10:00 Test Item Value Reference Range Interpretation Comments CO2 (test code = CO2) 30 24-32 [facility]2019-09-15 10:10:00 Test Item Value Reference Range Interpretation Comments Calcium Lvl (test code = Calcium Lvl) 9.0 8.5-10.5 [facility]2019-09-15 10:10:00 Test Item Value Reference Range Interpretation Comments AGAP (test code = AGAP) 10.2 10.0-20.0 [facility]2019-09-15 10:10:00 Test Item Value Reference Range Interpretation Comments eGFR (test code = eGFR) 72 [facility] CentralUnyktbeMPTDHHCZAI0928-98-57 10:10:00 Test Item Value Reference Range Interpretation Comments WBC (test code = WBC) 9.7 3.7-10.4 [facility] CentralOglylrkGRNVONEEVU5007-96-75 10:10:00 Test Item Value Reference Range Interpretation Comments RBC (test code = RBC) 3.56 4.20-5.40 [facility] CentralVyjanraRBMKWPUGAR8507-07-12 10:10:00 Test Item Value Reference Range Interpretation Comments Hgb (test code = Hgb) 11.6 12.0-16.0 [facility] CentralCwdtgveCSGKIDUTDN5193-70-78 10:10:00 Test Item Value Reference Range Interpretation Comments Hct (test code = Hct) 34.9 36.0-48.0 [facility] CentralPyypycnRBRSCMYGFG1286-09-72 10:10:00 Test Item Value Reference Range Interpretation Comments MCV (test code = MCV) 98.1 80.0-98.0 [facility] CentralBxkmfjxYXKLDBASYG1201-32-29 10:10:00 Test Item Value Reference Range Interpretation Comments MCH (test code = MCH) 32.7 pg 27.0-31.0 [facility] CentralKqjkwhbADULPYDQCA7152-99-48 10:10:00 Test Item Value Reference Range Interpretation Comments MCHC (test code = MCHC) 33.4 32.0-36.0 [facility] CentralLeyjdneUMBFWNDXAP7508-59-45 10:10:00 Test Item Value Reference Range Interpretation Comments RDW (test code = RDW) 15.5 11.5-14.5 [facility] CentralQabkibaQIFKRXPTHT9465-27-19 10:10:00 Test Item Value Reference Range Interpretation Comments Platelet (test code = Platelet) 288 133-450 [facility] CentralPkdizngVTMMNCWALZ9214-49-07 10:10:00 Test Item Value Reference Range Interpretation Comments MPV (test code = MPV) 9.0 7.4-10.4 [facility]2019-09-15 10:10:00 Test Item Value Reference Range Interpretation Comments Glucose Lvl (test code = Glucose Lvl) 78 70-99 [facility]2019-09-15 10:10:00 Test Item Value Reference Range Interpretation Comments BUN (test code = BUN) 16 7-22 [facility]2019-09-15 10:10:00 Test Item Value Reference Range Interpretation Comments Creatinine Lvl (test code = Creatinine 0.80 0.50-1.40 Lvl) [facility]2019-09-15 10:10:00 Test Item Value Reference Range Interpretation Comments Sodium Lvl (test code = Sodium Lvl) 138 135-145 [facility]2019-09-15 10:10:00 Test Item Value Reference Range Interpretation Comments Potassium Lvl (test code = Potassium 4.2 3.5-5.1 Lvl) [facility]2019-09-15 10:10:00 Test Item Value Reference Range Interpretation Comments Chloride Lvl (test code = Chloride Lvl) 102 95-109 [facility]2019-09-15 10:10:00 Test Item Value Reference Range Interpretation Comments CO2 (test code = CO2) 30 24-32 [facility]2019-09-15 10:10:00 Test Item Value Reference Range Interpretation Comments Calcium Lvl (test code = Calcium Lvl) 9.0 8.5-10.5 [facility]2019-09-15 10:10:00 Test Item Value Reference Range Interpretation Comments AGAP (test code = AGAP) 10.2 10.0-20.0 [facility]2019-09-15 10:10:00 Test Item Value Reference Range Interpretation Comments eGFR (test code = eGFR) 72 [facility] CentralUqiqakhRUUWWVIMKV6306-35-66 10:10:00 Test Item Value Reference Range Interpretation Comments WBC (test code = WBC) 9.7 3.7-10.4 [facility] CentralAflenptQSWDKLNOOH9796-11-09 10:10:00 Test Item Value Reference Range Interpretation Comments RBC (test code = RBC) 3.56 4.20-5.40 [facility] CentralBcmcoifSQHBESXYPW7277-75-55 10:10:00 Test Item Value Reference Range Interpretation Comments Hgb (test code = Hgb) 11.6 12.0-16.0 [facility] CentralCgskxipVVAIFZVZLF4287-46-94 10:10:00 Test Item Value Reference Range Interpretation Comments Hct (test code = Hct) 34.9 36.0-48.0 [facility] CentralKchozmaGLPITPLVVR5176-21-15 10:10:00 Test Item Value Reference Range Interpretation Comments MCV (test code = MCV) 98.1 80.0-98.0 [facility] CentralLrrrcynMDIKTYGQWC8037-82-14 10:10:00 Test Item Value Reference Range Interpretation Comments MCH (test code = MCH) 32.7 pg 27.0-31.0 [facility] CentralXfmkjixDTNIXPTDQX5706-10-11 10:10:00 Test Item Value Reference Range Interpretation Comments MCHC (test code = MCHC) 33.4 32.0-36.0 [facility] CentralEhqfpihSKSEWQZCBV7732-40-97 10:10:00 Test Item Value Reference Range Interpretation Comments RDW (test code = RDW) 15.5 11.5-14.5 [facility] CentralDazqlupIJVUBAGPSZ7910-57-09 10:10:00 Test Item Value Reference Range Interpretation Comments Platelet (test code = Platelet) 288 133-450 [facility] CentralOkjfrviASKSXCRZKC2678-82-86 10:10:00 Test Item Value Reference Range Interpretation Comments MPV (test code = MPV) 9.0 7.4-10.4 [facility]2019-09-15 10:10:00 Test Item Value Reference Range Interpretation Comments Glucose Lvl (test code = Glucose Lvl) 78 70-99 [facility]2019-09-15 10:10:00 Test Item Value Reference Range Interpretation Comments BUN (test code = BUN) 16 7-22 [facility]2019-09-15 10:10:00 Test Item Value Reference Range Interpretation Comments Creatinine Lvl (test code = Creatinine 0.80 0.50-1.40 Lvl) [facility]2019-09-15 10:10:00 Test Item Value Reference Range Interpretation Comments Sodium Lvl (test code = Sodium Lvl) 138 135-145 [facility]2019-09-15 10:10:00 Test Item Value Reference Range Interpretation Comments Potassium Lvl (test code = Potassium 4.2 3.5-5.1 Lvl) [facility]2019-09-15 10:10:00 Test Item Value Reference Range Interpretation Comments Chloride Lvl (test code = Chloride Lvl) 102 95-109 [facility]2019-09-15 10:10:00 Test Item Value Reference Range Interpretation Comments CO2 (test code = CO2) 30 24-32 [facility]2019-09-15 10:10:00 Test Item Value Reference Range Interpretation Comments Calcium Lvl (test code = Calcium Lvl) 9.0 8.5-10.5 [facility]2019-09-15 10:10:00 Test Item Value Reference Range Interpretation Comments AGAP (test code = AGAP) 10.2 10.0-20.0 [facility]2019-09-15 10:10:00 Test Item Value Reference Range Interpretation Comments eGFR (test code = eGFR) 72 [facility] CentralEfhpoudCQIPDTUQKV9505-81-88 10:10:00 Test Item Value Reference Range Interpretation Comments WBC (test code = WBC) 9.7 3.7-10.4 [facility] CentralCkvojqoCEXXMFMVEN4801-41-64 10:10:00 Test Item Value Reference Range Interpretation Comments RBC (test code = RBC) 3.56 4.20-5.40 [facility] CentralTzpnsloZOLKQJSADS4249-85-70 10:10:00 Test Item Value Reference Range Interpretation Comments Hgb (test code = Hgb) 11.6 12.0-16.0 [facility] CentralSorxeltYRKVTBGIYM0280-05-05 10:10:00 Test Item Value Reference Range Interpretation Comments Hct (test code = Hct) 34.9 36.0-48.0 [facility] CentralDcuvsvsTBNETLIXYO5638-73-32 10:10:00 Test Item Value Reference Range Interpretation Comments MCV (test code = MCV) 98.1 80.0-98.0 [facility] CentralEtfmjxgAQHUAAMIGX4624-62-36 10:10:00 Test Item Value Reference Range Interpretation Comments MCH (test code = MCH) 32.7 pg 27.0-31.0 [facility] CentralDminypvUNEBNJVLYB8661-98-85 10:10:00 Test Item Value Reference Range Interpretation Comments MCHC (test code = MCHC) 33.4 32.0-36.0 [facility] CentralBqzigofFCZECMDMOF5570-95-06 10:10:00 Test Item Value Reference Range Interpretation Comments RDW (test code = RDW) 15.5 11.5-14.5 [facility] CentralPpjvoqiRFSLXAMTWF4612-37-21 10:10:00 Test Item Value Reference Range Interpretation Comments Platelet (test code = Platelet) 288 133-450 [facility] CentralZmtrjhbNXXYFRUOBT6527-92-96 10:10:00 Test Item Value Reference Range Interpretation Comments MPV (test code = MPV) 9.0 7.4-10.4 [facility]2019-09-15 10:10:00 Test Item Value Reference Range Interpretation Comments Glucose Lvl (test code = Glucose Lvl) 78 70-99 [facility]2019-09-15 10:10:00 Test Item Value Reference Range Interpretation Comments BUN (test code = BUN) 16 7-22 [facility]2019-09-15 10:10:00 Test Item Value Reference Range Interpretation Comments Creatinine Lvl (test code = Creatinine 0.80 0.50-1.40 Lvl) [facility]2019-09-15 10:10:00 Test Item Value Reference Range Interpretation Comments Sodium Lvl (test code = Sodium Lvl) 138 135-145 [facility]2019-09-15 10:10:00 Test Item Value Reference Range Interpretation Comments Potassium Lvl (test code = Potassium 4.2 3.5-5.1 Lvl) [facility]2019-09-15 10:10:00 Test Item Value Reference Range Interpretation Comments Chloride Lvl (test code = Chloride Lvl) 102 95-109 [facility]2019-09-15 10:10:00 Test Item Value Reference Range Interpretation Comments CO2 (test code = CO2) 30 24-32 [facility]2019-09-15 10:10:00 Test Item Value Reference Range Interpretation Comments Calcium Lvl (test code = Calcium Lvl) 9.0 8.5-10.5 [facility]2019-09-15 10:10:00 Test Item Value Reference Range Interpretation Comments AGAP (test code = AGAP) 10.2 10.0-20.0 [facility]2019-09-15 10:10:00 Test Item Value Reference Range Interpretation Comments eGFR (test code = eGFR) 72 [facility] CentralOgaslnfFOHRZDEFHO0627-38-06 10:10:00 Test Item Value Reference Range Interpretation Comments WBC (test code = WBC) 9.7 3.7-10.4 [facility] CentralIeqtkmvSHBLHDZHNF8202-36-43 10:10:00 Test Item Value Reference Range Interpretation Comments RBC (test code = RBC) 3.56 4.20-5.40 [facility] CentralOadvsjvNNKIQYQRVR0232-49-19 10:10:00 Test Item Value Reference Range Interpretation Comments Hgb (test code = Hgb) 11.6 12.0-16.0 [facility] CentralGlkldrkNIZHUGIXVF2977-02-34 10:10:00 Test Item Value Reference Range Interpretation Comments Hct (test code = Hct) 34.9 36.0-48.0 [facility] CentralWkmbyriWDWFGFPNGM4536-49-34 10:10:00 Test Item Value Reference Range Interpretation Comments MCV (test code = MCV) 98.1 80.0-98.0 [place] 111959-09-15 10:10:00 Test Item Value Reference Range Interpretation Comments MCH (test code = MCH) 32.7 pg 27.0-31.0 [facility] CentralUsyfijcQIQFPEOESB4074-92-83 10:10:00 Test Item Value Reference Range Interpretation Comments MCHC (test code = MCHC) 33.4 32.0-36.0 [facility] CentralVxybvylQOJVAJKFEE0042-98-61 10:10:00 Test Item Value Reference Range Interpretation Comments RDW (test code = RDW) 15.5 11.5-14.5 [facility] CentralYdsrcklYMWKYXRBST4769-62-50 10:10:00 Test Item Value Reference Range Interpretation Comments Platelet (test code = Platelet) 288 133-450 [facility] CentralMkimfzeDBWJXMZNDA6993-12-20 10:10:00 Test Item Value Reference Range Interpretation Comments MPV (test code = MPV) 9.0 7.4-10.4 [facility]2019-09-15 10:10:00 Test Item Value Reference Range Interpretation Comments Glucose Lvl (test code = Glucose Lvl) 78 70-99 [facility]2019-09-15 10:10:00 Test Item Value Reference Range Interpretation Comments BUN (test code = BUN) 16 7-22 [facility]2019-09-15 10:10:00 Test Item Value Reference Range Interpretation Comments Creatinine Lvl (test code = Creatinine 0.80 0.50-1.40 Lvl) [facility]2019-09-15 10:10:00 Test Item Value Reference Range Interpretation Comments Sodium Lvl (test code = Sodium Lvl) 138 135-145 [facility]2019-09-15 10:10:00 Test Item Value Reference Range Interpretation Comments Potassium Lvl (test code = Potassium 4.2 3.5-5.1 Lvl) [facility]2019-09-15 10:10:00 Test Item Value Reference Range Interpretation Comments Chloride Lvl (test code = Chloride Lvl) 102 95-109 [facility]2019-09-15 10:10:00 Test Item Value Reference Range Interpretation Comments CO2 (test code = CO2) 30 24-32 [facility]2019-09-15 10:10:00 Test Item Value Reference Range Interpretation Comments Calcium Lvl (test code = Calcium Lvl) 9.0 8.5-10.5 [facility]2019-09-15 10:10:00 Test Item Value Reference Range Interpretation Comments AGAP (test code = AGAP) 10.2 10.0-20.0 [facility]2019-09-15 10:10:00 Test Item Value Reference Range Interpretation Comments eGFR (test code = eGFR) 72 [facility] CentralMjrrbgqAACQBRLGOS2482-94-56 10:10:00 Test Item Value Reference Range Interpretation Comments WBC (test code = WBC) 9.7 3.7-10.4 [facility] CentralSrqsnrcGBNMMKLLMU4573-91-99 10:10:00 Test Item Value Reference Range Interpretation Comments RBC (test code = RBC) 3.56 4.20-5.40 [facility] CentralFhifertQDHZMJUWNC6268-39-39 10:10:00 Test Item Value Reference Range Interpretation Comments Hgb (test code = Hgb) 11.6 12.0-16.0 [facility] CentralRowilzfJFHBBZSWEU5411-72-05 10:10:00 Test Item Value Reference Range Interpretation Comments Hct (test code = Hct) 34.9 36.0-48.0 [facility] CentralUhgjaqfXNUECZILDE8815-53-78 10:10:00 Test Item Value Reference Range Interpretation Comments MCV (test code = MCV) 98.1 80.0-98.0 [facility] CentralAzwqzdmYKDEUMEPOI9056-15-02 10:10:00 Test Item Value Reference Range Interpretation Comments MCH (test code = MCH) 32.7 pg 27.0-31.0 [facility] CentralGhekrdyZKVPLZTCDB0519-48-63 10:10:00 Test Item Value Reference Range Interpretation Comments MCHC (test code = MCHC) 33.4 32.0-36.0 [facility] CentralEmboiyiEDFGPDCNBH4469-97-81 10:10:00 Test Item Value Reference Range Interpretation Comments RDW (test code = RDW) 15.5 11.5-14.5 [facility] CentralCgykaytORMKJDVGSZ0102-19-14 10:10:00 Test Item Value Reference Range Interpretation Comments Platelet (test code = Platelet) 288 133-450 [facility] CentralFjxechgAVIYURKAMD4701-92-17 10:10:00 Test Item Value Reference Range Interpretation Comments MPV (test code = MPV) 9.0 7.4-10.4 [facility]2019-09-15 10:10:00 Test Item Value Reference Range Interpretation Comments Glucose Lvl (test code = Glucose Lvl) 78 70-99 [facility]2019-09-15 10:10:00 Test Item Value Reference Range Interpretation Comments BUN (test code = BUN) 16 7-22 [facility]2019-09-15 10:10:00 Test Item Value Reference Range Interpretation Comments Creatinine Lvl (test code = Creatinine 0.80 0.50-1.40 Lvl) [facility]2019-09-15 10:10:00 Test Item Value Reference Range Interpretation Comments Sodium Lvl (test code = Sodium Lvl) 138 135-145 [facility]2019-09-15 10:10:00 Test Item Value Reference Range Interpretation Comments Potassium Lvl (test code = Potassium 4.2 3.5-5.1 Lvl) [facility]2019-09-15 10:10:00 Test Item Value Reference Range Interpretation Comments Chloride Lvl (test code = Chloride Lvl) 102 95-109 [facility]2019-09-15 10:10:00 Test Item Value Reference Range Interpretation Comments CO2 (test code = CO2) 30 24-32 [facility]2019-09-15 10:10:00 Test Item Value Reference Range Interpretation Comments Calcium Lvl (test code = Calcium Lvl) 9.0 8.5-10.5 [facility]2019-09-15 10:10:00 Test Item Value Reference Range Interpretation Comments AGAP (test code = AGAP) 10.2 10.0-20.0 [facility]2019-09-15 10:10:00 Test Item Value Reference Range Interpretation Comments eGFR (test code = eGFR) 72 [facility]ZqlbbofVHGIULPLAM3219-85-06 10:10:00 Test Item Value Reference Range Interpretation Comments WBC (test code = WBC) 9.7 3.7-10.4 [facility] CentralFztmbszVZKXBGYSAZ3362-24-60 10:10:00 Test Item Value Reference Range Interpretation Comments RBC (test code = RBC) 3.56 4.20-5.40 [facility] CentralDusxhrnKQFDRWJDVF2336-50-89 10:10:00 Test Item Value Reference Range Interpretation Comments Hgb (test code = Hgb) 11.6 12.0-16.0 [facility] CentralGnhzcyjDRDEKSKDID3252-46-73 10:10:00 Test Item Value Reference Range Interpretation Comments Hct (test code = Hct) 34.9 36.0-48.0 [facility] CentralNnvmmbcNMBKVNGSHP4010-97-05 10:10:00 Test Item Value Reference Range Interpretation Comments MCV (test code = MCV) 98.1 80.0-98.0 [facility] CentralIvsjpnaFMISAVTBQJ0943-36-60 10:10:00 Test Item Value Reference Range Interpretation Comments MCH (test code = MCH) 32.7 pg 27.0-31.0 [facility] CentralGpckysdOOOVGTYQQK2836-79-02 10:10:00 Test Item Value Reference Range Interpretation Comments MCHC (test code = MCHC) 33.4 32.0-36.0 [facility] CentralOtelscmRFAEIGHYGR5620-49-98 10:10:00 Test Item Value Reference Range Interpretation Comments RDW (test code = RDW) 15.5 11.5-14.5 [facility] CentralFtvjezrVHALMDDUNG0632-06-61 10:10:00 Test Item Value Reference Range Interpretation Comments Platelet (test code = Platelet) 288 133-450 [facility] CentralCvizyvvQTHNVWWZSF4993-61-65 10:10:00 Test Item Value Reference Range Interpretation Comments MPV (test code = MPV) 9.0 7.4-10.4 [facility]KdxhuvjCMHEQGPDRWSI0592-36-80 08:06:00 Test Item Value Reference Range Interpretation Comments BUN (test code = BUN) 21 7-22 [facility] HospitalEghydlxQVRXOYLVZYHM2094-10-69 08:06:00 Test Item Value Reference Range Interpretation Comments Creatinine Lvl (test code = Creatinine 0.74 0.50-1.40 Lvl) [facility]EegsfbbZTXRDCCYRNYK0873-73-82 08:06:00 Test Item Value Reference Range Interpretation Comments Sodium Lvl (test code = Sodium Lvl) 137 135-145 [facility] HospitalGpmxqcgHSKFLPDZIZUY5089-06-99 08:06:00 Test Item Value Reference Range Interpretation Comments Potassium Lvl (test code = Potassium 4.3 3.5-5.1 Lvl) [facility] HospitalQicmggcGXFRNAVMBBNS1078-02-88 08:06:00 Test Item Value Reference Range Interpretation Comments Chloride Lvl (test code = Chloride Lvl) 102 95-109 [facility] HospitalJfhcgakQAPQWYXYAOFA0590-47-03 08:06:00 Test Item Value Reference Range Interpretation Comments CO2 (test code = CO2) 28 24-32 [facility] HospitalZnngfxzPJZOSUWQOIKH4888-79-68 08:06:00 Test Item Value Reference Range Interpretation Comments Calcium Lvl (test code = Calcium Lvl) 8.5 8.5-10.5 [facility]QxruritXQWOAKYQZXGY0174-95-10 08:06:00 Test Item Value Reference Range Interpretation Comments eGFR (test code = eGFR) 79 [facility] CentralXkluufbWEYRKPWDIZ2535-61-63 08:06:00 Test Item Value Reference Range Interpretation Comments WBC (test code = WBC) 9.9 3.7-10.4 [facility] CentralEwzxurcHOHMUBURCN2009-58-59 08:06:00 Test Item Value Reference Range Interpretation Comments RBC (test code = RBC) 3.57 4.20-5.40 [facility] CentralSekaolzSKSCTSRBNQ5211-73-90 08:06:00 Test Item Value Reference Range Interpretation Comments Hgb (test code = Hgb) 11.7 12.0-16.0 [facility] CentralDizdllkZKVQGGDVPE7267-61-41 08:06:00 Test Item Value Reference Range Interpretation Comments Hct (test code = Hct) 35.0 36.0-48.0 [facility] CentralCcjfeebYVVFYYPZHN8593-68-85 08:06:00 Test Item Value Reference Range Interpretation Comments MCV (test code = MCV) 98.0 80.0-98.0 [facility]LbmkhhtDJWZJZMVMS7379-71-33 08:06:00 Test Item Value Reference Range Interpretation Comments MCH (test code = MCH) 32.9 pg 27.0-31.0 [facility] HospitalZnjyusyWRNPTSRQBB0262-09-06 08:06:00 Test Item Value Reference Range Interpretation Comments MCHC (test code = MCHC) 33.5 32.0-36.0 [facility] CentralSuozfeyVVGBDPKDLJ8932-21-72 08:06:00 Test Item Value Reference Range Interpretation Comments RDW (test code = RDW) 15.2 11.5-14.5 [facility] CentralHfkjwzaQDKHBVFBJV1669-86-16 08:06:00 Test Item Value Reference Range Interpretation Comments Platelet (test code = Platelet) 244 133-450 [facility] HospitalNioepoyPHZOAPCYYC2082-12-84 08:06:00 Test Item Value Reference Range Interpretation Comments MPV (test code = MPV) 9.1 7.4-10.4 [facility] VBMFN3298-83-74 08:06:00 Test Item Value Reference Range Interpretation Comments Magnesium Lvl (test code = Magnesium 2.2 1.8-2.4 Lvl) [facility] VAKVC1316-51-25 08:06:00 Test Item Value Reference Range Interpretation Comments Phosphorus (test code = Phosphorus) 3.7 2.5-4.5 [facility] HospitalKaregalCXXIKREWFDJM1966-28-24 08:06:00 Test Item Value Reference Range Interpretation Comments AGAP (test code = AGAP) 11.3 10.0-20.0 [facility] HospitalYovrbpzIMTCOLHFFUBF0472-82-29 08:06:00 Test Item Value Reference Range Interpretation Comments Glucose Lvl (test code = Glucose Lvl) 88 70-99 [facility] HospitalSnasxglFLDTMHKVWWNQ4087-10-54 08:06:00 Test Item Value Reference Range Interpretation Comments BUN (test code = BUN) 21 7-22 [facility] HospitalAyqzhriATFGFIEEUBPP4038-45-16 08:06:00 Test Item Value Reference Range Interpretation Comments Creatinine Lvl (test code = Creatinine 0.74 0.50-1.40 Lvl) [facility] HospitalRzqyvvmOPQBUAFFDJUH1395-37-32 08:06:00 Test Item Value Reference Range Interpretation Comments Sodium Lvl (test code = Sodium Lvl) 137 135-145 [facility] HospitalVlupujoHYQESFZCDAXL8137-94-89 08:06:00 Test Item Value Reference Range Interpretation Comments Potassium Lvl (test code = Potassium 4.3 3.5-5.1 Lvl) [facility] HospitalMdrkzjwSZYNNAYWVOED7845-18-18 08:06:00 Test Item Value Reference Range Interpretation Comments Chloride Lvl (test code = Chloride Lvl) 102 95-109 [facility] HospitalTvrygwlQGTQMGPIKWZD4454-50-06 08:06:00 Test Item Value Reference Range Interpretation Comments CO2 (test code = CO2) 28 24-32 [facility] HospitalGglokciESCIDYEIEKOO5193-63-78 08:06:00 Test Item Value Reference Range Interpretation Comments Calcium Lvl (test code = Calcium Lvl) 8.5 8.5-10.5 [facility] HospitalGqhxfwiGYZXZJFMOMRF9509-42-88 08:06:00 Test Item Value Reference Range Interpretation Comments eGFR (test code = eGFR) 79 [facility] CentralRyfatptFUHYKCYPEY5173-52-14 08:06:00 Test Item Value Reference Range Interpretation Comments WBC (test code = WBC) 9.9 3.7-10.4 [facility] CentralOvqnfstHJBHCGYDSG7843-78-81 08:06:00 Test Item Value Reference Range Interpretation Comments RBC (test code = RBC) 3.57 4.20-5.40 [facility] CentralXhdnvynJYRVFPCEIS5112-83-30 08:06:00 Test Item Value Reference Range Interpretation Comments Hgb (test code = Hgb) 11.7 12.0-16.0 [facility] CentralIfuszguLDSTOAIECH6217-27-91 08:06:00 Test Item Value Reference Range Interpretation Comments Hct (test code = Hct) 35.0 36.0-48.0 [facility] CentralPayqmdsCQLKGMGDAX9469-78-92 08:06:00 Test Item Value Reference Range Interpretation Comments MCV (test code = MCV) 98.0 80.0-98.0 [facility] CentralMkwgbbcIGJDHXMIUJ2671-58-80 08:06:00 Test Item Value Reference Range Interpretation Comments MCH (test code = MCH) 32.9 pg 27.0-31.0 [facility] CentralRmyahmzJBWSPDVEYI2840-46-37 08:06:00 Test Item Value Reference Range Interpretation Comments MCHC (test code = MCHC) 33.5 32.0-36.0 [facility] CentralSmrmoztTUVVLPPZPH1584-80-82 08:06:00 Test Item Value Reference Range Interpretation Comments RDW (test code = RDW) 15.2 11.5-14.5 [facility] CentralGwfvfdeHHWMZGGSNI8310-57-52 08:06:00 Test Item Value Reference Range Interpretation Comments Platelet (test code = Platelet) 244 133-450 [facility] CentralLcnywrlUVWQVUDJAQ0345-34-61 08:06:00 Test Item Value Reference Range Interpretation Comments MPV (test code = MPV) 9.1 7.4-10.4 [facility]2019-09-14 08:06:00 Test Item Value Reference Range Interpretation Comments Magnesium Lvl (test code = Magnesium 2.2 1.8-2.4 Lvl) [facility] CenterI [facility] CEXVG4888-92-01 08:06:00 Test Item Value Reference Range Interpretation Comments Phosphorus (test code = Phosphorus) 3.7 2.5-4.5 [facility] HospitalViqkqsrOQEEFDBMTSFA5271-20-31 08:06:00 Test Item Value Reference Range Interpretation Comments AGAP (test code = AGAP) 11.3 10.0-20.0 [facility] HospitalFowbnleHZFOOSQEGKPA6371-16-16 08:06:00 Test Item Value Reference Range Interpretation Comments Glucose Lvl (test code = Glucose Lvl) 88 70-99 [facility] HospitalRkakhwdHPMKEWNLWYES6840-43-02 08:06:00 Test Item Value Reference Range Interpretation Comments BUN (test code = BUN) 21 7-22 [facility] HospitalXxvmsdzHKNSYCEKXHLK0155-80-77 08:06:00 Test Item Value Reference Range Interpretation Comments Creatinine Lvl (test code = Creatinine 0.74 0.50-1.40 Lvl) [facility] HospitalZpzqkidEGARBWMWETSO6231-90-80 08:06:00 Test Item Value Reference Range Interpretation Comments Sodium Lvl (test code = Sodium Lvl) 137 135-145 [facility] HospitalPircbzzCKEHURBVDGAB5154-26-19 08:06:00 Test Item Value Reference Range Interpretation Comments Potassium Lvl (test code = Potassium 4.3 3.5-5.1 Lvl) [facility] HospitalUwkpucvJKPTWKDWSWRH5564-58-83 08:06:00 Test Item Value Reference Range Interpretation Comments Chloride Lvl (test code = Chloride Lvl) 102 95-109 [facility] HospitalDzhegozTYBHZAPATSLJ6651-01-78 08:06:00 Test Item Value Reference Range Interpretation Comments CO2 (test code = CO2) 28 24-32 [facility] HospitalNagccwaACXHWIVVQSKR7753-39-94 08:06:00 Test Item Value Reference Range Interpretation Comments Calcium Lvl (test code = Calcium Lvl) 8.5 8.5-10.5 [facility] HospitalYusbajqRVBGEKXHIABC0187-88-15 08:06:00 Test Item Value Reference Range Interpretation Comments eGFR (test code = eGFR) 79 [facility] CentralPnltscoVCZWYBIWYW1497-59-60 08:06:00 Test Item Value Reference Range Interpretation Comments WBC (test code = WBC) 9.9 3.7-10.4 [facility] CentralYhbunrrYQHMRIDTKD4111-39-92 08:06:00 Test Item Value Reference Range Interpretation Comments RBC (test code = RBC) 3.57 4.20-5.40 [facility] CentralMwszpkuWLJJBXCXBG5779-33-11 08:06:00 Test Item Value Reference Range Interpretation Comments Hgb (test code = Hgb) 11.7 12.0-16.0 [facility] CentralYekpezgEVAEUXVRZP0880-28-08 08:06:00 Test Item Value Reference Range Interpretation Comments Hct (test code = Hct) 35.0 36.0-48.0 [facility] CentralAocccxcUXCPKURYMM5361-43-01 08:06:00 Test Item Value Reference Range Interpretation Comments MCV (test code = MCV) 98.0 80.0-98.0 [facility] CentralHwaaoflUXPROABGMV9145-92-25 08:06:00 Test Item Value Reference Range Interpretation Comments MCH (test code = MCH) 32.9 pg 27.0-31.0 [facility] CentralUkbtbkmCZOKNGFKPK5457-44-13 08:06:00 Test Item Value Reference Range Interpretation Comments MCHC (test code = MCHC) 33.5 32.0-36.0 [facility] CentralGttnvxmCVEPPNLRVP2267-05-85 08:06:00 Test Item Value Reference Range Interpretation Comments RDW (test code = RDW) 15.2 11.5-14.5 [facility] CentralLxifvbjJBKPYNITXQ4027-40-15 08:06:00 Test Item Value Reference Range Interpretation Comments Platelet (test code = Platelet) 244 133-450 [facility] CentralLmcdkleHMTQWURBSK7315-69-56 08:06:00 Test Item Value Reference Range Interpretation Comments MPV (test code = MPV) 9.1 7.4-10.4 [facility]2019-09-14 08:06:00 Test Item Value Reference Range Interpretation Comments Magnesium Lvl (test code = Magnesium 2.2 1.8-2.4 Lvl) [facility]2019-09-14 08:06:00 Test Item Value Reference Range Interpretation Comments Phosphorus (test code = Phosphorus) 3.7 2.5-4.5 [facility] HospitalUafncgbKSGODZBFGMNX0037-99-19 08:06:00 Test Item Value Reference Range Interpretation Comments AGAP (test code = AGAP) 11.3 10.0-20.0 [facility] HospitalBzxmseyVODEKWRCHJMS7035-48-81 08:06:00 Test Item Value Reference Range Interpretation Comments Glucose Lvl (test code = Glucose Lvl) 88 70-99 [facility] HospitalSywpqpgOMWDUXKCTCQL6734-30-32 08:06:00 Test Item Value Reference Range Interpretation Comments BUN (test code = BUN) 21 7-22 [facility] HospitalXkiljooPPQOMWVZVRTR4924-11-68 08:06:00 Test Item Value Reference Range Interpretation Comments Creatinine Lvl (test code = Creatinine 0.74 0.50-1.40 Lvl) [facility] HospitalKxsysfeWLNBXIQIXTII0749-46-83 08:06:00 Test Item Value Reference Range Interpretation Comments Sodium Lvl (test code = Sodium Lvl) 137 135-145 [facility] HospitalIngenlhCIFXJSGVSFWK7500-66-83 08:06:00 Test Item Value Reference Range Interpretation Comments Potassium Lvl (test code = Potassium 4.3 3.5-5.1 Lvl) [facility] HospitalFnygmipRBPMEOGLMXEJ3525-67-56 08:06:00 Test Item Value Reference Range Interpretation Comments Chloride Lvl (test code = Chloride Lvl) 102 95-109 [facility] HospitalCimalalZFNKNAEQCSGB2497-41-89 08:06:00 Test Item Value Reference Range Interpretation Comments CO2 (test code = CO2) 28 24-32 [facility] HospitalAfliiwjZSVCJMSNECKI5300-60-91 08:06:00 Test Item Value Reference Range Interpretation Comments Calcium Lvl (test code = Calcium Lvl) 8.5 8.5-10.5 [facility] HospitalJhhhudtTZJLZBSVQBYQ6667-29-16 08:06:00 Test Item Value Reference Range Interpretation Comments eGFR (test code = eGFR) 79 [facility] CentralGhbdeppZLRWOFEHUU8585-73-33 08:06:00 Test Item Value Reference Range Interpretation Comments WBC (test code = WBC) 9.9 3.7-10.4 [facility] CentralTebjxcdUKILQWYETF8781-47-36 08:06:00 Test Item Value Reference Range Interpretation Comments RBC (test code = RBC) 3.57 4.20-5.40 [facility] CentralFehniwiILWOHEFOSC4587-98-19 08:06:00 Test Item Value Reference Range Interpretation Comments Hgb (test code = Hgb) 11.7 12.0-16.0 [facility] CentralOmdzgguSHXJUHTLVM5248-71-11 08:06:00 Test Item Value Reference Range Interpretation Comments Hct (test code = Hct) 35.0 36.0-48.0 [facility] CentralMhzfopxWOVJOYHJDY2762-73-55 08:06:00 Test Item Value Reference Range Interpretation Comments MCV (test code = MCV) 98.0 80.0-98.0 [facility] CentralJccaiyfIGNKYVWQXD4957-19-91 08:06:00 Test Item Value Reference Range Interpretation Comments MCH (test code = MCH) 32.9 pg 27.0-31.0 [facility] CentralLvipaojJXKCQNOQZV0835-56-67 08:06:00 Test Item Value Reference Range Interpretation Comments MCHC (test code = MCHC) 33.5 32.0-36.0 [facility] CentralChsyyanTAEYFOGSFB9066-92-52 08:06:00 Test Item Value Reference Range Interpretation Comments RDW (test code = RDW) 15.2 11.5-14.5 [facility] CentralXekfidvHTHDUAPJKT8979-24-56 08:06:00 Test Item Value Reference Range Interpretation Comments Platelet (test code = Platelet) 244 133-450 [facility] CentralKdtngdfTNXVAZDSNQ3876-43-20 08:06:00 Test Item Value Reference Range Interpretation Comments MPV (test code = MPV) 9.1 7.4-10.4 [facility]2019-09-14 08:06:00 Test Item Value Reference Range Interpretation Comments Magnesium Lvl (test code = Magnesium 2.2 1.8-2.4 Lvl) [facility]2019-09-14 08:06:00 Test Item Value Reference Range Interpretation Comments Phosphorus (test code = Phosphorus) 3.7 2.5-4.5 [facility] HospitalMdludxwXUIKYPDGIHVN3849-83-61 08:06:00 Test Item Value Reference Range Interpretation Comments AGAP (test code = AGAP) 11.3 10.0-20.0 [facility] HospitalVvgorcrKGMMMQYPBKZM0095-95-15 08:06:00 Test Item Value Reference Range Interpretation Comments Glucose Lvl (test code = Glucose Lvl) 88 70-99 [facility] HospitalDiycgreXKIPDHKOSRDE6563-20-00 08:06:00 Test Item Value Reference Range Interpretation Comments BUN (test code = BUN) 21 7-22 [facility] HospitalUgzfgidGVUTBNGQQSQG5795-97-83 08:06:00 Test Item Value Reference Range Interpretation Comments Creatinine Lvl (test code = Creatinine 0.74 0.50-1.40 Lvl) [facility] HospitalHbqyhbcNUKXZXNNOGPZ0782-81-60 08:06:00 Test Item Value Reference Range Interpretation Comments Sodium Lvl (test code = Sodium Lvl) 137 135-145 [facility] HospitalLbbznsbSUCQWTSPNPVX9035-02-30 08:06:00 Test Item Value Reference Range Interpretation Comments Potassium Lvl (test code = Potassium 4.3 3.5-5.1 Lvl) [facility] HospitalWwjcjzqHWFTAQUOBCDN4909-71-83 08:06:00 Test Item Value Reference Range Interpretation Comments Chloride Lvl (test code = Chloride Lvl) 102 95-109 [facility] HospitalFnosocjRZEHFDGOMAYN4218-93-84 08:06:00 Test Item Value Reference Range Interpretation Comments CO2 (test code = CO2) 28 24-32 [facility] HospitalNrplvpiXDOXNLVUIAYZ9443-01-98 08:06:00 Test Item Value Reference Range Interpretation Comments Calcium Lvl (test code = Calcium Lvl) 8.5 8.5-10.5 [facility] HospitalGgsaocbAGIGBZNMYRYH5204-47-84 08:06:00 Test Item Value Reference Range Interpretation Comments eGFR (test code = eGFR) 79 [facility] CentralAkpdfffOPSKKZFNRK0028-32-86 08:06:00 Test Item Value Reference Range Interpretation Comments WBC (test code = WBC) 9.9 3.7-10.4 [facility] CentralEaldrjbQITWBKXEDC6654-56-39 08:06:00 Test Item Value Reference Range Interpretation Comments RBC (test code = RBC) 3.57 4.20-5.40 [facility] CentralLaqotkfZVVNCFNCAG7453-00-43 08:06:00 Test Item Value Reference Range Interpretation Comments Hgb (test code = Hgb) 11.7 12.0-16.0 [facility] CentralMioohafNFCTKZXDTN4886-80-32 08:06:00 Test Item Value Reference Range Interpretation Comments Hct (test code = Hct) 35.0 36.0-48.0 [facility] CentralIuqckcpUWWXVDLPCK4135-25-16 08:06:00 Test Item Value Reference Range Interpretation Comments MCV (test code = MCV) 98.0 80.0-98.0 [facility] CentralHqhfujkGKODUHNWHD3733-45-95 08:06:00 Test Item Value Reference Range Interpretation Comments MCH (test code = MCH) 32.9 pg 27.0-31.0 [facility] CentralQfiojciNOFFVKEGHG8499-07-25 08:06:00 Test Item Value Reference Range Interpretation Comments MCHC (test code = MCHC) 33.5 32.0-36.0 [facility] CentralBwokayaJFUFAPNCCZ4283-10-04 08:06:00 Test Item Value Reference Range Interpretation Comments RDW (test code = RDW) 15.2 11.5-14.5 [facility] CentralYtksfhgFTVZYQAOOM2023-69-19 08:06:00 Test Item Value Reference Range Interpretation Comments Platelet (test code = Platelet) 244 133-450 [facility] CentralSdagcpmPZQRRKVHYI6091-23-35 08:06:00 Test Item Value Reference Range Interpretation Comments MPV (test code = MPV) 9.1 7.4-10.4 [facility]2019-09-14 08:06:00 Test Item Value Reference Range Interpretation Comments Magnesium Lvl (test code = Magnesium 2.2 1.8-2.4 Lvl) [facility] CenterCHEM IYCYC3009-65-29 08:06:00 Test Item Value Reference Range Interpretation Comments Phosphorus (test code = Phosphorus) 3.7 2.5-4.5 [facility] HospitalBshrpkbTIDEKVNJQQMP4494-35-58 08:06:00 Test Item Value Reference Range Interpretation Comments AGAP (test code = AGAP) 11.3 10.0-20.0 [facility] HospitalRdlfxjnUTZZZOGLYMTC4957-63-82 08:06:00 Test Item Value Reference Range Interpretation Comments Glucose Lvl (test code = Glucose Lvl) 88 70-99 [facility] HospitalXcakcggNHZNSLAEKRAT6787-07-19 08:06:00 Test Item Value Reference Range Interpretation Comments BUN (test code = BUN) 21 7-22 [facility] HospitalBenzggxIIXREGPKENYO2785-53-20 08:06:00 Test Item Value Reference Range Interpretation Comments Creatinine Lvl (test code = Creatinine 0.74 0.50-1.40 Lvl) [facility] HospitalLrihiicZGHEHOGOAOOL5936-63-15 08:06:00 Test Item Value Reference Range Interpretation Comments Sodium Lvl (test code = Sodium Lvl) 137 135-145 [facility] HospitalLctqoopSKZVZMOCYBIJ1099-32-06 08:06:00 Test Item Value Reference Range Interpretation Comments Potassium Lvl (test code = Potassium 4.3 3.5-5.1 Lvl) [facility] HospitalChskahpBBJDOMUHUWRA9512-40-97 08:06:00 Test Item Value Reference Range Interpretation Comments Chloride Lvl (test code = Chloride Lvl) 102 95-109 [facility] HospitalPjzkasjCKDSNATVGORN3922-54-81 08:06:00 Test Item Value Reference Range Interpretation Comments CO2 (test code = CO2) 28 24-32 [facility] HospitalVpunkcbFDGEMYWJTYIW0556-31-47 08:06:00 Test Item Value Reference Range Interpretation Comments Calcium Lvl (test code = Calcium Lvl) 8.5 8.5-10.5 [facility] HospitalDgndsdtGVXTQVLYLAHU3435-22-28 08:06:00 Test Item Value Reference Range Interpretation Comments eGFR (test code = eGFR) 79 [facility] CenterIjajnahHZOXESFAFD6060-89-24 08:06:00 Test Item Value Reference Range Interpretation Comments WBC (test code = WBC) 9.9 3.7-10.4 [facility] CentralEkvogfcXFNHCRILDM1024-53-71 08:06:00 Test Item Value Reference Range Interpretation Comments RBC (test code = RBC) 3.57 4.20-5.40 [facility] CentralZdebcksYRJSCQFJTT7058-66-84 08:06:00 Test Item Value Reference Range Interpretation Comments Hgb (test code = Hgb) 11.7 12.0-16.0 [facility] CentralLocokuxXWVZWKSAII5710-14-57 08:06:00 Test Item Value Reference Range Interpretation Comments Hct (test code = Hct) 35.0 36.0-48.0 [facility] CentralWtpusgaCIPFKPIALT0831-70-07 08:06:00 Test Item Value Reference Range Interpretation Comments MCV (test code = MCV) 98.0 80.0-98.0 [facility] CentralBlivjfsWNMCVTQYTS9383-99-69 08:06:00 Test Item Value Reference Range Interpretation Comments MCH (test code = MCH) 32.9 pg 27.0-31.0 [facility] CentralRgwrfnfOBDOFYODDG9898-41-97 08:06:00 Test Item Value Reference Range Interpretation Comments MCHC (test code = MCHC) 33.5 32.0-36.0 [facility] CentralBtmqfqsHGRBCPUFPX1047-32-37 08:06:00 Test Item Value Reference Range Interpretation Comments RDW (test code = RDW) 15.2 11.5-14.5 [facility] CentralGluamloBEAPDBBRRC4700-45-46 08:06:00 Test Item Value Reference Range Interpretation Comments Platelet (test code = Platelet) 244 133-450 [facility] CentralEplrroqWQCJUVERUP7804-60-08 08:06:00 Test Item Value Reference Range Interpretation Comments MPV (test code = MPV) 9.1 7.4-10.4 [facility] QDJYC7385-46-66 08:06:00 Test Item Value Reference Range Interpretation Comments Magnesium Lvl (test code = Magnesium 2.2 1.8-2.4 Lvl) [facility] QHSZB4328-18-60 08:06:00 Test Item Value Reference Range Interpretation Comments Phosphorus (test code = Phosphorus) 3.7 2.5-4.5 [facility]MujgojsNDMXQJNBYPMF5331-22-73 08:06:00 Test Item Value Reference Range Interpretation Comments AGAP (test code = AGAP) 11.3 10.0-20.0 [facility] HospitalZsqocqxYLAIPUPOLFMX3285-51-98 08:06:00 Test Item Value Reference Range Interpretation Comments Glucose Lvl (test code = Glucose Lvl) 88 70-99 [facility] HospitalBtwalkfMNHJVIUXCRNE7931-61-96 08:06:00 Test Item Value Reference Range Interpretation Comments BUN (test code = BUN) 21 7-22 [facility]FiiwmsaBPMCYRYFIUDI5938-72-03 08:06:00 Test Item Value Reference Range Interpretation Comments Creatinine Lvl (test code = Creatinine 0.74 0.50-1.40 Lvl) [facility]PrjmkkhVJKWLTLVCWGD9060-80-92 08:06:00 Test Item Value Reference Range Interpretation Comments Sodium Lvl (test code = Sodium Lvl) 137 135-145 [facility] HospitalJotbddpFUUWBCQQARLD2259-13-34 08:06:00 Test Item Value Reference Range Interpretation Comments Potassium Lvl (test code = Potassium 4.3 3.5-5.1 Lvl) [facility] HospitalWggpzffJQAWHCEQUJJG7693-76-75 08:06:00 Test Item Value Reference Range Interpretation Comments Chloride Lvl (test code = Chloride Lvl) 102 95-109 [facility] HospitalFlnozssZOOMBLVRHZLO5392-21-99 08:06:00 Test Item Value Reference Range Interpretation Comments CO2 (test code = CO2) 28 24-32 [facility] HospitalIaztkzlRBIGPFTDGOOW3430-16-53 08:06:00 Test Item Value Reference Range Interpretation Comments Calcium Lvl (test code = Calcium Lvl) 8.5 8.5-10.5 [facility] HospitalVsgqyncINDAYJZSTJQS1412-88-58 08:06:00 Test Item Value Reference Range Interpretation Comments eGFR (test code = eGFR) 79 [facility]AeuxzbhFRCNJVUEXZ1957-17-52 08:06:00 Test Item Value Reference Range Interpretation Comments WBC (test code = WBC) 9.9 3.7-10.4 [facility] CentralJyiymvsSUJBHNCHCP5026-69-29 08:06:00 Test Item Value Reference Range Interpretation Comments RBC (test code = RBC) 3.57 4.20-5.40 [facility] CentralOirhzoqVBPYEIWBCG7215-75-79 08:06:00 Test Item Value Reference Range Interpretation Comments Hgb (test code = Hgb) 11.7 12.0-16.0 [facility] CentralQtqaueoMIJWXTFOSD7359-43-22 08:06:00 Test Item Value Reference Range Interpretation Comments Hct (test code = Hct) 35.0 36.0-48.0 [facility] CentralKqclhaaXQQXELZVJP3185-00-22 08:06:00 Test Item Value Reference Range Interpretation Comments MCV (test code = MCV) 98.0 80.0-98.0 [facility] CentralUwigdkqPVGHWQGOIC4675-17-84 08:06:00 Test Item Value Reference Range Interpretation Comments MCH (test code = MCH) 32.9 pg 27.0-31.0 [facility] CentralZabglnuIXJFHBEMKK4199-14-40 08:06:00 Test Item Value Reference Range Interpretation Comments MCHC (test code = MCHC) 33.5 32.0-36.0 [facility] CentralQotwyttCSSHAZILHK5873-59-25 08:06:00 Test Item Value Reference Range Interpretation Comments RDW (test code = RDW) 15.2 11.5-14.5 [facility] CentralInatlewVIGYXTSJOB5611-32-71 08:06:00 Test Item Value Reference Range Interpretation Comments Platelet (test code = Platelet) 244 133-450 [facility] CentralYaxisbzAJHRRRGLUN6238-24-18 08:06:00 Test Item Value Reference Range Interpretation Comments MPV (test code = MPV) 9.1 7.4-10.4 [facility]2019-09-14 08:06:00 Test Item Value Reference Range Interpretation Comments Magnesium Lvl (test code = Magnesium 2.2 1.8-2.4 Lvl) [facility]2019-09-14 08:06:00 Test Item Value Reference Range Interpretation Comments Phosphorus (test code = Phosphorus) 3.7 2.5-4.5 [facility] HospitalHiktykzWYZIGUSTEZMN6745-12-59 08:06:00 Test Item Value Reference Range Interpretation Comments AGAP (test code = AGAP) 11.3 10.0-20.0 [facility] HospitalFkmhfyrAVYFHCZOQVHB9808-94-79 08:06:00 Test Item Value Reference Range Interpretation Comments Glucose Lvl (test code = Glucose Lvl) 88 70-99 [facility] HospitalBgqpvknPYQIIWFTOSKS3077-13-23 08:06:00 Test Item Value Reference Range Interpretation Comments BUN (test code = BUN) 21 7-22 [facility] HospitalZqomcjiOCVXCEWVCLWE5180-75-66 08:06:00 Test Item Value Reference Range Interpretation Comments Creatinine Lvl (test code = Creatinine 0.74 0.50-1.40 Lvl) [facility] HospitalHcfisbbXQEYQBOTZVKU3429-62-88 08:06:00 Test Item Value Reference Range Interpretation Comments Sodium Lvl (test code = Sodium Lvl) 137 135-145 [facility] HospitalZiycunkTTZCDUQOGHDZ8975-19-53 08:06:00 Test Item Value Reference Range Interpretation Comments Potassium Lvl (test code = Potassium 4.3 3.5-5.1 Lvl) [facility] HospitalJgrhewmHONJEGSCXGFH4940-21-25 08:06:00 Test Item Value Reference Range Interpretation Comments Chloride Lvl (test code = Chloride Lvl) 102 95-109 [facility] HospitalPbgutwvXRXCOSVPJVAM6541-68-75 08:06:00 Test Item Value Reference Range Interpretation Comments CO2 (test code = CO2) 28 24-32 [facility] HospitalCoelwlgHTQMMNNSGOBG2607-76-64 08:06:00 Test Item Value Reference Range Interpretation Comments Calcium Lvl (test code = Calcium Lvl) 8.5 8.5-10.5 [facility] HospitalPbbbhcnMYXBBNWWUMUX2645-52-22 08:06:00 Test Item Value Reference Range Interpretation Comments eGFR (test code = eGFR) 79 [facility] CentralFkfzsfzVQLYRJRKVN2406-79-05 08:06:00 Test Item Value Reference Range Interpretation Comments WBC (test code = WBC) 9.9 3.7-10.4 [facility] CentralUoxymfgHHZQNJPOSE2238-15-15 08:06:00 Test Item Value Reference Range Interpretation Comments RBC (test code = RBC) 3.57 4.20-5.40 [facility] CentralTwxorhtEIRAODCDDP4643-89-61 08:06:00 Test Item Value Reference Range Interpretation Comments Hgb (test code = Hgb) 11.7 12.0-16.0 [facility] CentralStxvnlrFXDJDHIIRB6897-82-92 08:06:00 Test Item Value Reference Range Interpretation Comments Hct (test code = Hct) 35.0 36.0-48.0 [facility] CentralKyzgovnOLOYSGEQWR8690-92-77 08:06:00 Test Item Value Reference Range Interpretation Comments MCV (test code = MCV) 98.0 80.0-98.0 [facility] CentralNrglcykJXUNCWBHYB1760-11-08 08:06:00 Test Item Value Reference Range Interpretation Comments MCH (test code = MCH) 32.9 pg 27.0-31.0 [facility] CentralMrixgroZMTRVDIJAW5366-89-73 08:06:00 Test Item Value Reference Range Interpretation Comments MCHC (test code = MCHC) 33.5 32.0-36.0 [facility] CentralXdunsrsLYGMXMQIMS0699-08-34 08:06:00 Test Item Value Reference Range Interpretation Comments RDW (test code = RDW) 15.2 11.5-14.5 [facility] CentralVemspgyTGCQTIWBNI8184-81-33 08:06:00 Test Item Value Reference Range Interpretation Comments Platelet (test code = Platelet) 244 133-450 [facility] CentralInziubbXIACEWEXWK9100-42-07 08:06:00 Test Item Value Reference Range Interpretation Comments MPV (test code = MPV) 9.1 7.4-10.4 [facility]2019-09-14 08:06:00 Test Item Value Reference Range Interpretation Comments Magnesium Lvl (test code = Magnesium 2.2 1.8-2.4 Lvl) [facility]2019-09-14 08:06:00 Test Item Value Reference Range Interpretation Comments Phosphorus (test code = Phosphorus) 3.7 2.5-4.5 [facility] HospitalEypyyxkAOQHTNMMWZHN5691-55-64 08:06:00 Test Item Value Reference Range Interpretation Comments AGAP (test code = AGAP) 11.3 10.0-20.0 [facility] HospitalGnmwkiiRGDPLNVWZJKB2313-94-30 08:06:00 Test Item Value Reference Range Interpretation Comments Glucose Lvl (test code = Glucose Lvl) 88 70-99 [facility]2019-09-13 07:47:00 Test Item Value Reference Range Interpretation Comments Magnesium Lvl (test code = Magnesium 2.3 1.8-2.4 Lvl) [facility]2019-09-13 07:47:00 Test Item Value Reference Range Interpretation Comments Phosphorus (test code = Phosphorus) 3.1 2.5-4.5 [facility]2019-09-13 07:47:00 Test Item Value Reference Range Interpretation Comments Procalcitonin Lvl (test 0.93 See_Comment [Au tomated message] code = Procalcitonin Lvl) Th e system which generated this result transmitted ref erence range: <=0.10. The reference range was not used to interpr et this result as normal/abnormal . [facility]2019-09-13 07:47:00 Test Item Value Reference Range Interpretation Comments Glucose Lvl (test code = Glucose Lvl) 88 70-99 [facility]2019-09-13 07:47:00 Test Item Value Reference Range Interpretation Comments BUN (test code = BUN) 21 7-22 [facility]2019-09-13 07:47:00 Test Item Value Reference Range Interpretation Comments Creatinine Lvl (test code = Creatinine 0.64 0.50-1.40 Lvl) [facility]2019-09-13 07:47:00 Test Item Value Reference Range Interpretation Comments Sodium Lvl (test code = Sodium Lvl) 141 135-145 [place] 697309-09-13 07:47:00 Test Item Value Reference Range Interpretation Comments Potassium Lvl (test code = Potassium 4.6 3.5-5.1 Lvl) [facility]2019-09-13 07:47:00 Test Item Value Reference Range Interpretation Comments Chloride Lvl (test code = Chloride Lvl) 104 95-109 [facility]2019-09-13 07:47:00 Test Item Value Reference Range Interpretation Comments CO2 (test code = CO2) 27 24-32 [place] 697309-09-13 07:47:00 Test Item Value Reference Range Interpretation Comments Calcium Lvl (test code = Calcium Lvl) 8.7 8.5-10.5 [facility]2019-09-13 07:47:00 Test Item Value Reference Range Interpretation Comments eGFR (test code = eGFR) 87 [facility]2019-09-13 07:47:00 Test Item Value Reference Range Interpretation Comments AGAP (test code = AGAP) 14.6 10.0-20.0 [facility] CentralMyivxncUVXIOGOQZH9755-41-16 07:47:00 Test Item Value Reference Range Interpretation Comments WBC (test code = WBC) 10.6 3.7-10.4 [facility] CentralQplebkeJRIJFRKGJE5996-01-85 07:47:00 Test Item Value Reference Range Interpretation Comments RBC (test code = RBC) 3.73 4.20-5.40 [place] 111959-09-13 07:47:00 Test Item Value Reference Range Interpretation Comments Hgb (test code = Hgb) 12.4 12.0-16.0 [place] 111959-09-13 07:47:00 Test Item Value Reference Range Interpretation Comments Hct (test code = Hct) 36.3 36.0-48.0 [facility] CentralGvmjshxMRQAATMURF5345-11-66 07:47:00 Test Item Value Reference Range Interpretation Comments MCV (test code = MCV) 97.3 80.0-98.0 [place] 111959-09-13 07:47:00 Test Item Value Reference Range Interpretation Comments MCH (test code = MCH) 33.2 pg 27.0-31.0 [facility] CentralIueovywVQOVUNORIE2872-15-91 07:47:00 Test Item Value Reference Range Interpretation Comments MCHC (test code = MCHC) 34.2 32.0-36.0 [facility] CentralVrwiyyrTQWGDUKYFF2137-10-43 07:47:00 Test Item Value Reference Range Interpretation Comments RDW (test code = RDW) 15.6 11.5-14.5 [place] 111959-09-13 07:47:00 Test Item Value Reference Range Interpretation Comments Platelet (test code = Platelet) 240 133-450 [facility] CentralYuxclbuQBWJDJGUQE5147-35-44 07:47:00 Test Item Value Reference Range Interpretation Comments MPV (test code = MPV) 9.2 7.4-10.4 [facility]2019-09-13 07:47:00 Test Item Value Reference Range Interpretation Comments Magnesium Lvl (test code = Magnesium 2.3 1.8-2.4 Lvl) [place] 697309-09-13 07:47:00 Test Item Value Reference Range Interpretation Comments Phosphorus (test code = Phosphorus) 3.1 2.5-4.5 [place] 697309-09-13 07:47:00 Test Item Value Reference Range Interpretation Comments Procalcitonin Lvl (test 0.93 See_Comment [Au tomated message] code = Procalcitonin Lvl) Th e system which generated this result transmitted ref erence range: <=0.10. The reference range was not used to interpr et this result as normal/abnormal . [facility]2019-09-13 07:47:00 Test Item Value Reference Range Interpretation Comments Glucose Lvl (test code = Glucose Lvl) 88 70-99 [facility]2019-09-13 07:47:00 Test Item Value Reference Range Interpretation Comments BUN (test code = BUN) 21 7-22 [facility]2019-09-13 07:47:00 Test Item Value Reference Range Interpretation Comments Creatinine Lvl (test code = Creatinine 0.64 0.50-1.40 Lvl) [facility]2019-09-13 07:47:00 Test Item Value Reference Range Interpretation Comments Sodium Lvl (test code = Sodium Lvl) 141 135-145 [facility]2019-09-13 07:47:00 Test Item Value Reference Range Interpretation Comments Potassium Lvl (test code = Potassium 4.6 3.5-5.1 Lvl) [facility]2019-09-13 07:47:00 Test Item Value Reference Range Interpretation Comments Chloride Lvl (test code = Chloride Lvl) 104 95-109 [facility]2019-09-13 07:47:00 Test Item Value Reference Range Interpretation Comments CO2 (test code = CO2) 27 24-32 [facility]2019-09-13 07:47:00 Test Item Value Reference Range Interpretation Comments Calcium Lvl (test code = Calcium Lvl) 8.7 8.5-10.5 [place] 697309-09-13 07:47:00 Test Item Value Reference Range Interpretation Comments eGFR (test code = eGFR) 87 [facility]2019-09-13 07:47:00 Test Item Value Reference Range Interpretation Comments AGAP (test code = AGAP) 14.6 10.0-20.0 [facility] CentralBmwpcmuJJTBTWKEGT4564-20-55 07:47:00 Test Item Value Reference Range Interpretation Comments WBC (test code = WBC) 10.6 3.7-10.4 [facility] CentralDblpfrvLFJFVNJYDW0735-87-81 07:47:00 Test Item Value Reference Range Interpretation Comments RBC (test code = RBC) 3.73 4.20-5.40 [facility] CentralEkjwaucFNBTUBRAIP2892-95-21 07:47:00 Test Item Value Reference Range Interpretation Comments Hgb (test code = Hgb) 12.4 12.0-16.0 [place] 111959-09-13 07:47:00 Test Item Value Reference Range Interpretation Comments Hct (test code = Hct) 36.3 36.0-48.0 [place] 111959-09-13 07:47:00 Test Item Value Reference Range Interpretation Comments MCV (test code = MCV) 97.3 80.0-98.0 [facility] CentralJvpvudcSZJXJJJURU1887-29-52 07:47:00 Test Item Value Reference Range Interpretation Comments MCH (test code = MCH) 33.2 pg 27.0-31.0 [facility] CentralThasvqmJYAXCYRELB7901-37-11 07:47:00 Test Item Value Reference Range Interpretation Comments MCHC (test code = MCHC) 34.2 32.0-36.0 [facility] CentralQcfqdfsZVOCAGENKK4128-83-23 07:47:00 Test Item Value Reference Range Interpretation Comments RDW (test code = RDW) 15.6 11.5-14.5 [facility] CentralIfrdcdySDQBUBLGNZ8768-17-87 07:47:00 Test Item Value Reference Range Interpretation Comments Platelet (test code = Platelet) 240 133-450 [facility] CentralTbnijdgQUNIYGYFJK7676-97-57 07:47:00 Test Item Value Reference Range Interpretation Comments MPV (test code = MPV) 9.2 7.4-10.4 [facility]2019-09-13 07:47:00 Test Item Value Reference Range Interpretation Comments Magnesium Lvl (test code = Magnesium 2.3 1.8-2.4 Lvl) [facility]2019-09-13 07:47:00 Test Item Value Reference Range Interpretation Comments Phosphorus (test code = Phosphorus) 3.1 2.5-4.5 [place] 697309-09-13 07:47:00 Test Item Value Reference Range Interpretation Comments Procalcitonin Lvl (test 0.93 See_Comment [Au tomated message] code = Procalcitonin Lvl) e system which generated this result transmitted ref erence range: <=0.10. The reference range was not used to interpr et this result as normal/abnormal . [facility]2019-09-13 07:47:00 Test Item Value Reference Range Interpretation Comments Glucose Lvl (test code = Glucose Lvl) 88 70-99 [facility]2019-09-13 07:47:00 Test Item Value Reference Range Interpretation Comments BUN (test code = BUN) 21 7-22 [facility]2019-09-13 07:47:00 Test Item Value Reference Range Interpretation Comments Creatinine Lvl (test code = Creatinine 0.64 0.50-1.40 Lvl) [facility]2019-09-13 07:47:00 Test Item Value Reference Range Interpretation Comments Sodium Lvl (test code = Sodium Lvl) 141 135-145 [facility]2019-09-13 07:47:00 Test Item Value Reference Range Interpretation Comments Potassium Lvl (test code = Potassium 4.6 3.5-5.1 Lvl) [facility]2019-09-13 07:47:00 Test Item Value Reference Range Interpretation Comments Chloride Lvl (test code = Chloride Lvl) 104 95-109 [facility]2019-09-13 07:47:00 Test Item Value Reference Range Interpretation Comments CO2 (test code = CO2) 27 24-32 [facility]2019-09-13 07:47:00 Test Item Value Reference Range Interpretation Comments Calcium Lvl (test code = Calcium Lvl) 8.7 8.5-10.5 [facility]2019-09-13 07:47:00 Test Item Value Reference Range Interpretation Comments eGFR (test code = eGFR) 87 [facility]2019-09-13 07:47:00 Test Item Value Reference Range Interpretation Comments AGAP (test code = AGAP) 14.6 10.0-20.0 [facility] CentralLixpijpQJFHXBFCKX1953-59-33 07:47:00 Test Item Value Reference Range Interpretation Comments WBC (test code = WBC) 10.6 3.7-10.4 [place] 111959-09-13 07:47:00 Test Item Value Reference Range Interpretation Comments RBC (test code = RBC) 3.73 4.20-5.40 [facility] CentralXjnzxfwGMORNEZYQO6493-97-17 07:47:00 Test Item Value Reference Range Interpretation Comments Hgb (test code = Hgb) 12.4 12.0-16.0 [place] 111959-09-13 07:47:00 Test Item Value Reference Range Interpretation Comments Hct (test code = Hct) 36.3 36.0-48.0 [place] 111959-09-13 07:47:00 Test Item Value Reference Range Interpretation Comments MCV (test code = MCV) 97.3 80.0-98.0 [place] 111959-09-13 07:47:00 Test Item Value Reference Range Interpretation Comments MCH (test code = MCH) 33.2 pg 27.0-31.0 [facility] CentralSgyzppwFYBOVWPRIY0121-74-27 07:47:00 Test Item Value Reference Range Interpretation Comments MCHC (test code = MCHC) 34.2 32.0-36.0 [facility] CentralQontfuaSZRRPTCNZC3728-82-70 07:47:00 Test Item Value Reference Range Interpretation Comments RDW (test code = RDW) 15.6 11.5-14.5 [facility] CentralSxlznwzIAEFVDOSCF3083-22-33 07:47:00 Test Item Value Reference Range Interpretation Comments Platelet (test code = Platelet) 240 133-450 [facility] CentralLjjqypzHIRHVJVLJI0387-35-92 07:47:00 Test Item Value Reference Range Interpretation Comments MPV (test code = MPV) 9.2 7.4-10.4 [facility]2019-09-13 07:47:00 Test Item Value Reference Range Interpretation Comments Magnesium Lvl (test code = Magnesium 2.3 1.8-2.4 Lvl) [facility]2019-09-13 07:47:00 Test Item Value Reference Range Interpretation Comments Phosphorus (test code = Phosphorus) 3.1 2.5-4.5 [facility]2019-09-13 07:47:00 Test Item Value Reference Range Interpretation Comments Procalcitonin Lvl (test 0.93 See_Comment [Au tomated message] code = Procalcitonin Lvl) e system which generated this result transmitted ref erence range: <=0.10. The reference range was not used to interpr et this result as normal/abnormal . [facility]2019-09-13 07:47:00 Test Item Value Reference Range Interpretation Comments Glucose Lvl (test code = Glucose Lvl) 88 70-99 [facility]2019-09-13 07:47:00 Test Item Value Reference Range Interpretation Comments BUN (test code = BUN) 21 7-22 [facility]2019-09-13 07:47:00 Test Item Value Reference Range Interpretation Comments Creatinine Lvl (test code = Creatinine 0.64 0.50-1.40 Lvl) [facility]2019-09-13 07:47:00 Test Item Value Reference Range Interpretation Comments Sodium Lvl (test code = Sodium Lvl) 141 135-145 [facility]2019-09-13 07:47:00 Test Item Value Reference Range Interpretation Comments Potassium Lvl (test code = Potassium 4.6 3.5-5.1 Lvl) [facility]2019-09-13 07:47:00 Test Item Value Reference Range Interpretation Comments Chloride Lvl (test code = Chloride Lvl) 104 95-109 [facility]2019-09-13 07:47:00 Test Item Value Reference Range Interpretation Comments CO2 (test code = CO2) 27 24-32 [place] 697309-09-13 07:47:00 Test Item Value Reference Range Interpretation Comments Calcium Lvl (test code = Calcium Lvl) 8.7 8.5-10.5 [facility]2019-09-13 07:47:00 Test Item Value Reference Range Interpretation Comments eGFR (test code = eGFR) 87 [facility]2019-09-13 07:47:00 Test Item Value Reference Range Interpretation Comments AGAP (test code = AGAP) 14.6 10.0-20.0 [place] 111959-09-13 07:47:00 Test Item Value Reference Range Interpretation Comments WBC (test code = WBC) 10.6 3.7-10.4 [facility] CentralYpfiinyXZQHTMQCNY0358-66-77 07:47:00 Test Item Value Reference Range Interpretation Comments RBC (test code = RBC) 3.73 4.20-5.40 [facility] CentralHxvcmetSBSRCMINPX1034-70-04 07:47:00 Test Item Value Reference Range Interpretation Comments Hgb (test code = Hgb) 12.4 12.0-16.0 [place] 111959-09-13 07:47:00 Test Item Value Reference Range Interpretation Comments Hct (test code = Hct) 36.3 36.0-48.0 [facility] CentralHyawbsyYKIQWVYCZO6996-37-86 07:47:00 Test Item Value Reference Range Interpretation Comments MCV (test code = MCV) 97.3 80.0-98.0 [place] 111959-09-13 07:47:00 Test Item Value Reference Range Interpretation Comments MCH (test code = MCH) 33.2 pg 27.0-31.0 [place] 111959-09-13 07:47:00 Test Item Value Reference Range Interpretation Comments MCHC (test code = MCHC) 34.2 32.0-36.0 [facility] CentralBaedmnmSQQFRLLPZY7994-14-70 07:47:00 Test Item Value Reference Range Interpretation Comments RDW (test code = RDW) 15.6 11.5-14.5 [facility] CentralDkokmerPGTCLFAUFC7181-90-05 07:47:00 Test Item Value Reference Range Interpretation Comments Platelet (test code = Platelet) 240 133-450 [facility] CentralIihgzvcLOVTCVVXRN8872-64-14 07:47:00 Test Item Value Reference Range Interpretation Comments MPV (test code = MPV) 9.2 7.4-10.4 [facility]2019-09-13 07:47:00 Test Item Value Reference Range Interpretation Comments Magnesium Lvl (test code = Magnesium 2.3 1.8-2.4 Lvl) [facility]2019-09-13 07:47:00 Test Item Value Reference Range Interpretation Comments Phosphorus (test code = Phosphorus) 3.1 2.5-4.5 [facility]2019-09-13 07:47:00 Test Item Value Reference Range Interpretation Comments Procalcitonin Lvl (test 0.93 See_Comment [Au tomated message] code = Procalcitonin Lvl) e system which generated this result transmitted ref erence range: <=0.10. The reference range was not used to interpr et this result as normal/abnormal . [facility]2019-09-13 07:47:00 Test Item Value Reference Range Interpretation Comments Glucose Lvl (test code = Glucose Lvl) 88 70-99 [facility]2019-09-13 07:47:00 Test Item Value Reference Range Interpretation Comments BUN (test code = BUN) 21 7-22 [facility]2019-09-13 07:47:00 Test Item Value Reference Range Interpretation Comments Creatinine Lvl (test code = Creatinine 0.64 0.50-1.40 Lvl) [facility]2019-09-13 07:47:00 Test Item Value Reference Range Interpretation Comments Sodium Lvl (test code = Sodium Lvl) 141 135-145 [place] 697309-09-13 07:47:00 Test Item Value Reference Range Interpretation Comments Potassium Lvl (test code = Potassium 4.6 3.5-5.1 Lvl) [facility]2019-09-13 07:47:00 Test Item Value Reference Range Interpretation Comments Chloride Lvl (test code = Chloride Lvl) 104 95-109 [facility]2019-09-13 07:47:00 Test Item Value Reference Range Interpretation Comments CO2 (test code = CO2) 27 24-32 [facility]2019-09-13 07:47:00 Test Item Value Reference Range Interpretation Comments Calcium Lvl (test code = Calcium Lvl) 8.7 8.5-10.5 [facility]2019-09-13 07:47:00 Test Item Value Reference Range Interpretation Comments eGFR (test code = eGFR) 87 [facility]2019-09-13 07:47:00 Test Item Value Reference Range Interpretation Comments AGAP (test code = AGAP) 14.6 10.0-20.0 [facility]QghwoxtCLLNFKGYJT0307-78-41 07:47:00 Test Item Value Reference Range Interpretation Comments WBC (test code = WBC) 10.6 3.7-10.4 [facility] CentralVxwrieeSAYVRHGYBO2426-58-36 07:47:00 Test Item Value Reference Range Interpretation Comments RBC (test code = RBC) 3.73 4.20-5.40 [facility] CentralSenwkhwDCDHAZEGQA6268-72-27 07:47:00 Test Item Value Reference Range Interpretation Comments Hgb (test code = Hgb) 12.4 12.0-16.0 [facility] CentralAxbgoivVUSANBJVKY5930-53-41 07:47:00 Test Item Value Reference Range Interpretation Comments Hct (test code = Hct) 36.3 36.0-48.0 [facility] CentralGoymvsjQDXKJKNNIN1434-95-27 07:47:00 Test Item Value Reference Range Interpretation Comments MCV (test code = MCV) 97.3 80.0-98.0 [facility] CentralPduhjjkOTOEYDGLSR5128-33-71 07:47:00 Test Item Value Reference Range Interpretation Comments MCH (test code = MCH) 33.2 pg 27.0-31.0 [facility] CentralRjfuhlhXOMXHKCNMP0274-07-55 07:47:00 Test Item Value Reference Range Interpretation Comments MCHC (test code = MCHC) 34.2 32.0-36.0 [place] 111959-09-13 07:47:00 Test Item Value Reference Range Interpretation Comments RDW (test code = RDW) 15.6 11.5-14.5 [place] 111959-09-13 07:47:00 Test Item Value Reference Range Interpretation Comments Platelet (test code = Platelet) 240 133-450 [place] 111959-09-13 07:47:00 Test Item Value Reference Range Interpretation Comments MPV (test code = MPV) 9.2 7.4-10.4 [facility]2019-09-13 07:47:00 Test Item Value Reference Range Interpretation Comments Magnesium Lvl (test code = Magnesium 2.3 1.8-2.4 Lvl) [facility]2019-09-13 07:47:00 Test Item Value Reference Range Interpretation Comments Phosphorus (test code = Phosphorus) 3.1 2.5-4.5 [facility]2019-09-13 07:47:00 Test Item Value Reference Range Interpretation Comments Procalcitonin Lvl (test 0.93 See_Comment [Au tomated message] code = Procalcitonin Lvl) e system which generated this result transmitted ref erence range: <=0.10. The reference range was not used to interpr et this result as normal/abnormal . [facility]2019-09-13 07:47:00 Test Item Value Reference Range Interpretation Comments Glucose Lvl (test code = Glucose Lvl) 88 70-99 [place] 697309-09-13 07:47:00 Test Item Value Reference Range Interpretation Comments BUN (test code = BUN) 21 7-22 [place] 697309-09-13 07:47:00 Test Item Value Reference Range Interpretation Comments Creatinine Lvl (test code = Creatinine 0.64 0.50-1.40 Lvl) [place] 697309-09-13 07:47:00 Test Item Value Reference Range Interpretation Comments Sodium Lvl (test code = Sodium Lvl) 141 135-145 [place] 697309-09-13 07:47:00 Test Item Value Reference Range Interpretation Comments Potassium Lvl (test code = Potassium 4.6 3.5-5.1 Lvl) [place] 697309-09-13 07:47:00 Test Item Value Reference Range Interpretation Comments Chloride Lvl (test code = Chloride Lvl) 104 95-109 [facility]2019-09-13 07:47:00 Test Item Value Reference Range Interpretation Comments CO2 (test code = CO2) 27 24-32 [facility]2019-09-13 07:47:00 Test Item Value Reference Range Interpretation Comments Calcium Lvl (test code = Calcium Lvl) 8.7 8.5-10.5 [facility]2019-09-13 07:47:00 Test Item Value Reference Range Interpretation Comments eGFR (test code = eGFR) 87 [facility]2019-09-13 07:47:00 Test Item Value Reference Range Interpretation Comments AGAP (test code = AGAP) 14.6 10.0-20.0 [facility] CentralFdttqbuBIASXUMNMF4210-40-12 07:47:00 Test Item Value Reference Range Interpretation Comments WBC (test code = WBC) 10.6 3.7-10.4 [facility] CentralNqetlccWYSFIGFGCT2924-77-54 07:47:00 Test Item Value Reference Range Interpretation Comments RBC (test code = RBC) 3.73 4.20-5.40 [facility] CentralCmeezmmBPJWICRLIU1025-38-57 07:47:00 Test Item Value Reference Range Interpretation Comments Hgb (test code = Hgb) 12.4 12.0-16.0 [facility] CentralLdvtjzxLHDKKZPOZR7578-92-62 07:47:00 Test Item Value Reference Range Interpretation Comments Hct (test code = Hct) 36.3 36.0-48.0 [facility] CentralPxaysjrRHWKENBTVX4730-75-90 07:47:00 Test Item Value Reference Range Interpretation Comments MCV (test code = MCV) 97.3 80.0-98.0 [place] 111959-09-13 07:47:00 Test Item Value Reference Range Interpretation Comments MCH (test code = MCH) 33.2 pg 27.0-31.0 [facility] CentralAgahqeqUHKJEFXWAL2256-24-79 07:47:00 Test Item Value Reference Range Interpretation Comments MCHC (test code = MCHC) 34.2 32.0-36.0 [facility] CentralIopyuahBDGFMIKIBH5490-12-72 07:47:00 Test Item Value Reference Range Interpretation Comments RDW (test code = RDW) 15.6 11.5-14.5 [facility] CentralLbdskqeBHWBPGVWCA9428-74-23 07:47:00 Test Item Value Reference Range Interpretation Comments Platelet (test code = Platelet) 240 133-450 [facility] CentralMqxtdecGBKSAMACHJ0524-74-89 07:47:00 Test Item Value Reference Range Interpretation Comments MPV (test code = MPV) 9.2 7.4-10.4 [facility]2019-09-13 07:47:00 Test Item Value Reference Range Interpretation Comments Magnesium Lvl (test code = Magnesium 2.3 1.8-2.4 Lvl) [facility]2019-09-13 07:47:00 Test Item Value Reference Range Interpretation Comments Phosphorus (test code = Phosphorus) 3.1 2.5-4.5 [facility]2019-09-13 07:47:00 Test Item Value Reference Range Interpretation Comments Procalcitonin Lvl (test 0.93 See_Comment [Au tomated message] code = Procalcitonin Lvl) e system which generated this result transmitted ref erence range: <=0.10. The reference range was not used to interpr et this result as normal/abnormal . [facility]2019-09-13 07:47:00 Test Item Value Reference Range Interpretation Comments Glucose Lvl (test code = Glucose Lvl) 88 70-99 [facility]2019-09-13 07:47:00 Test Item Value Reference Range Interpretation Comments BUN (test code = BUN) 21 7-22 [facility]2019-09-13 07:47:00 Test Item Value Reference Range Interpretation Comments Creatinine Lvl (test code = Creatinine 0.64 0.50-1.40 Lvl) [facility]2019-09-13 07:47:00 Test Item Value Reference Range Interpretation Comments Sodium Lvl (test code = Sodium Lvl) 141 135-145 [facility]2019-09-13 07:47:00 Test Item Value Reference Range Interpretation Comments Potassium Lvl (test code = Potassium 4.6 3.5-5.1 Lvl) [facility]2019-09-13 07:47:00 Test Item Value Reference Range Interpretation Comments Chloride Lvl (test code = Chloride Lvl) 104 95-109 [facility]2019-09-13 07:47:00 Test Item Value Reference Range Interpretation Comments CO2 (test code = CO2) 27 24-32 [facility]2019-09-13 07:47:00 Test Item Value Reference Range Interpretation Comments Calcium Lvl (test code = Calcium Lvl) 8.7 8.5-10.5 [facility]2019-09-13 07:47:00 Test Item Value Reference Range Interpretation Comments eGFR (test code = eGFR) 87 [facility]2019-09-13 07:47:00 Test Item Value Reference Range Interpretation Comments AGAP (test code = AGAP) 14.6 10.0-20.0 [facility] CentralVoyptikTWMGYQHLIL8629-76-06 07:47:00 Test Item Value Reference Range Interpretation Comments WBC (test code = WBC) 10.6 3.7-10.4 [facility] CentralOlykfnvPARTGVZOJN0436-69-22 07:47:00 Test Item Value Reference Range Interpretation Comments RBC (test code = RBC) 3.73 4.20-5.40 [facility] CentralNdtsvmdICWABSQSUN9225-61-51 07:47:00 Test Item Value Reference Range Interpretation Comments Hgb (test code = Hgb) 12.4 12.0-16.0 [facility] CentralYarsnkkHLUVAYVRWI8061-18-10 07:47:00 Test Item Value Reference Range Interpretation Comments Hct (test code = Hct) 36.3 36.0-48.0 [facility] CentralHgcfncbZIFQKRLITT7857-22-07 07:47:00 Test Item Value Reference Range Interpretation Comments MCV (test code = MCV) 97.3 80.0-98.0 [facility] CentralKsayyjzQLUCCLMMTK3748-90-45 07:47:00 Test Item Value Reference Range Interpretation Comments MCH (test code = MCH) 33.2 pg 27.0-31.0 [facility] CentralAvgjaytTMMDJJGWTR8383-88-44 07:47:00 Test Item Value Reference Range Interpretation Comments MCHC (test code = MCHC) 34.2 32.0-36.0 [facility] CentralFjledqfWHHESLOXJJ7004-61-03 07:47:00 Test Item Value Reference Range Interpretation Comments RDW (test code = RDW) 15.6 11.5-14.5 [facility] CentralMfnnjpxTNPNBFYBSW3506-40-02 07:47:00 Test Item Value Reference Range Interpretation Comments Platelet (test code = Platelet) 240 133-450 [place] 111959-09-13 07:47:00 Test Item Value Reference Range Interpretation Comments MPV (test code = MPV) 9.2 7.4-10.4 [facility]2019-09-13 07:47:00 Test Item Value Reference Range Interpretation Comments Magnesium Lvl (test code = Magnesium 2.3 1.8-2.4 Lvl) [facility]2019-09-13 07:47:00 Test Item Value Reference Range Interpretation Comments Phosphorus (test code = Phosphorus) 3.1 2.5-4.5 [place] 697309-09-13 07:47:00 Test Item Value Reference Range Interpretation Comments Procalcitonin Lvl (test 0.93 See_Comment [Au tomated message] code = Procalcitonin Lvl) e system which generated this result transmitted ref erence range: <=0.10. The reference range was not used to interpr et this result as normal/abnormal . [facility]2019-09-13 07:47:00 Test Item Value Reference Range Interpretation Comments Glucose Lvl (test code = Glucose Lvl) 88 70-99 [facility]2019-09-13 07:47:00 Test Item Value Reference Range Interpretation Comments BUN (test code = BUN) 21 7-22 [facility]2019-09-13 07:47:00 Test Item Value Reference Range Interpretation Comments Creatinine Lvl (test code = Creatinine 0.64 0.50-1.40 Lvl) [facility]2019-09-13 07:47:00 Test Item Value Reference Range Interpretation Comments Sodium Lvl (test code = Sodium Lvl) 141 135-145 [facility]2019-09-13 07:47:00 Test Item Value Reference Range Interpretation Comments Potassium Lvl (test code = Potassium 4.6 3.5-5.1 Lvl) [facility]2019-09-13 07:47:00 Test Item Value Reference Range Interpretation Comments Chloride Lvl (test code = Chloride Lvl) 104 95-109 [facility]2019-09-13 07:47:00 Test Item Value Reference Range Interpretation Comments CO2 (test code = CO2) 27 24-32 [place] 697309-09-13 07:47:00 Test Item Value Reference Range Interpretation Comments Calcium Lvl (test code = Calcium Lvl) 8.7 8.5-10.5 [facility]2019-09-13 07:47:00 Test Item Value Reference Range Interpretation Comments eGFR (test code = eGFR) 87 [facility]2019-09-13 07:47:00 Test Item Value Reference Range Interpretation Comments AGAP (test code = AGAP) 14.6 10.0-20.0 [facility] CentralIbuwfkeMVFOQBXBFR5869-61-42 07:47:00 Test Item Value Reference Range Interpretation Comments WBC (test code = WBC) 10.6 3.7-10.4 [facility] CentralVgtqxqfWCWGJYLVZN4286-21-82 07:47:00 Test Item Value Reference Range Interpretation Comments RBC (test code = RBC) 3.73 4.20-5.40 [facility] CentralMbnvxecQZUOORETNA6764-76-80 07:47:00 Test Item Value Reference Range Interpretation Comments Hgb (test code = Hgb) 12.4 12.0-16.0 [facility] CentralAilsbnqDTOIPVJEXY1249-76-31 07:47:00 Test Item Value Reference Range Interpretation Comments Hct (test code = Hct) 36.3 36.0-48.0 [facility] CentralDculvwaGITADEDINJ8439-60-78 07:47:00 Test Item Value Reference Range Interpretation Comments MCV (test code = MCV) 97.3 80.0-98.0 [facility] CentralDgdujfhVPKMHTUZMV5498-56-27 07:47:00 Test Item Value Reference Range Interpretation Comments MCH (test code = MCH) 33.2 pg 27.0-31.0 [facility] CentralCkbkgbsIKKTOVWOEL8446-12-63 07:47:00 Test Item Value Reference Range Interpretation Comments MCHC (test code = MCHC) 34.2 32.0-36.0 [facility] CentralItklwntLFBJFKDLOO8457-37-22 07:47:00 Test Item Value Reference Range Interpretation Comments RDW (test code = RDW) 15.6 11.5-14.5 [facility] CentralVlbpglsKYPAMDJYFN7036-65-98 07:47:00 Test Item Value Reference Range Interpretation Comments Platelet (test code = Platelet) 240 133-450 [facility] CentralBzemhfqKSGLKIQMAD7993-39-45 07:47:00 Test Item Value Reference Range Interpretation Comments MPV (test code = MPV) 9.2 7.4-10.4 [facility]2019-09-12 07:17:00 Test Item Value Reference Range Interpretation Comments Phosphorus (test code = Phosphorus) 2.9 2.5-4.5 [facility]2019-09-12 07:17:00 Test Item Value Reference Range Interpretation Comments Magnesium Lvl (test code = Magnesium 2.3 1.8-2.4 Lvl) [facility] CentralNfzjbdyBRCNEUSVVT6012-53-02 07:17:00 Test Item Value Reference Range Interpretation Comments Segs (test code = Segs) 68.6 45.0-75.0 [facility] CentralIgyooayDVRVMDDJLY3619-57-86 07:17:00 Test Item Value Reference Range Interpretation Comments Lymphocytes (test code = Lymphocytes) 17.0 20.0-40.0 [facility] CentralIqsvoogIQQWFEDDQX0603-80-27 07:17:00 Test Item Value Reference Range Interpretation Comments Monocytes (test code = Monocytes) 12.1 2.0-12.0 [facility] CentralCkgclraZJSMEKXNAZ1458-82-89 07:17:00 Test Item Value Reference Range Interpretation Comments Eosinophils (test code = 1.5 See_Comment [A utomated message] The Eosinophils) system which ge nerated this result tra nsmitted reference range : <=4.0. The reference r maría was not used to int erpret this result as normal/abnormal . [facility] CentralKynbapfZIHOMNHMFG8157-96-94 07:17:00 Test Item Value Reference Range Interpretation Comments Basophils (test code = 0.8 See_Comment [Aut omated message] The Basophils) system which ge nerated this result tra nsmitted reference range : <=1.0. The reference r maría was not used to int erpret this result as normal/abnormal . [facility] CentralTdogbzlVAQOZKJREX5800-79-06 07:17:00 Test Item Value Reference Range Interpretation Comments Neutrophils # (test code = Neutrophils 7.8 1.5-8.1 #) [facility] CentralYecrukaPTPEHPGUZP2507-91-66 07:17:00 Test Item Value Reference Range Interpretation Comments Lymphocytes # (test code = Lymphocytes 1.9 1.0-5.5 #) [facility] CentralCymfjchFISZJYPAUE0262-77-56 07:17:00 Test Item Value Reference Range Interpretation Comments Monocytes # (test code 1.4 See_Comment [Aut omated message] The = Monocytes #) system which generated this result tra nsmitted reference range : <=0.8. The reference r maría was not used to int erpret this result as normal/abnormal . [facility] CentralLkedpbdOFEDPCNJGG1088-70-24 07:17:00 Test Item Value Reference Range Interpretation Comments Eosinophils # (test code 0.2 See_Comment [A utomated message] The = Eosinophils #) system whic h generated this result tra nsmitted reference range : <=0.5. The reference r maría was not used to int erpret this result as normal/abnormal . [facility] CentralZuhdrzzSTBVDKUEYR5694-69-30 07:17:00 Test Item Value Reference Range Interpretation Comments Basophils # (test code 0.1 See_Comment [Aut omated message] The = Basophils #) system which generated this result tra nsmitted reference range : <=0.2. The reference r maría was not used to int erpret this result as normal/abnormal . [facility] Test Item Value Reference Range Interpretation Comments Ca Ion WB (test code = Ca Ion WB) 1.20 1.05-1.25 [facility]2019-09-12 07:17:00 Test Item Value Reference Range Interpretation Comments Ca Norm WB (test code = Ca Norm WB) 1.11 1.05-1.25 [facility] TMEGM8019-40-23 07:17:00 Test Item Value Reference Range Interpretation Comments Phosphorus (test code = Phosphorus) 2.9 2.5-4.5 [facility] ZKVIY4985-68-02 07:17:00 Test Item Value Reference Range Interpretation Comments Magnesium Lvl (test code = Magnesium 2.3 1.8-2.4 Lvl) [facility] CentralPzwmfudNYZUXQCADI7566-52-50 07:17:00 Test Item Value Reference Range Interpretation Comments Segs (test code = Segs) 68.6 45.0-75.0 [facility] CentralYblxrdvRHWVPBGEAO8049-50-94 07:17:00 Test Item Value Reference Range Interpretation Comments Lymphocytes (test code = Lymphocytes) 17.0 20.0-40.0 [facility] CentralVussmajDMQGOZUGIO3172-82-61 07:17:00 Test Item Value Reference Range Interpretation Comments Monocytes (test code = Monocytes) 12.1 2.0-12.0 [facility] CentralVvdrscbASEPKZNZMA7883-64-68 07:17:00 Test Item Value Reference Range Interpretation Comments Eosinophils (test code = 1.5 See_Comment [A utomated message] The Eosinophils) system which ge nerated this result tra nsmitted reference range : <=4.0. The reference r maría was not used to int erpret this result as normal/abnormal . [facility] CentralSrdxgujIUYAAAEFLB1468-63-71 07:17:00 Test Item Value Reference Range Interpretation Comments Basophils (test code = 0.8 See_Comment [Aut omated message] The Basophils) system which ge nerated this result tra nsmitted reference range : <=1.0. The reference r maría was not used to int erpret this result as normal/abnormal . [facility] CentralWzucenoLYHGUUYTNA8120-92-00 07:17:00 Test Item Value Reference Range Interpretation Comments Neutrophils # (test code = Neutrophils 7.8 1.5-8.1 #) [facility] CentralWwbqduzLPKLMOSOMH5181-42-94 07:17:00 Test Item Value Reference Range Interpretation Comments Lymphocytes # (test code = Lymphocytes 1.9 1.0-5.5 #) [facility] CentralFvkobvwQKWJSBWBQV9173-23-72 07:17:00 Test Item Value Reference Range Interpretation Comments Monocytes # (test code 1.4 See_Comment [Aut omated message] The = Monocytes #) system which generated this result tra nsmitted reference range : <=0.8. The reference r maría was not used to int erpret this result as normal/abnormal . [facility] CentralTjxyuidOMLQKCYYWH2831-07-99 07:17:00 Test Item Value Reference Range Interpretation Comments Eosinophils # (test code 0.2 See_Comment [A utomated message] The = Eosinophils #) system whic h generated this result tra nsmitted reference range : <=0.5. The reference r maría was not used to int erpret this result as normal/abnormal . [facility] CentralNchaqcyVLSVCURZND8696-69-91 07:17:00 Test Item Value Reference Range Interpretation Comments Basophils # (test code 0.1 See_Comment [Aut omated message] The = Basophils #) system which generated this result tra nsmitted reference range : <=0.2. The reference r maría was not used to int erpret this result as normal/abnormal . [facility] 07:17:00 Test Item Value Reference Range Interpretation Comments Ca Ion WB (test code = Ca Ion WB) 1.20 1.05-1.25 [facility]2019-09-12 07:17:00 Test Item Value Reference Range Interpretation Comments Ca Norm WB (test code = Ca Norm WB) 1.11 1.05-1.25 [facility]2019-09-12 07:17:00 Test Item Value Reference Range Interpretation Comments Phosphorus (test code = Phosphorus) 2.9 2.5-4.5 [facility]2019-09-12 07:17:00 Test Item Value Reference Range Interpretation Comments Magnesium Lvl (test code = Magnesium 2.3 1.8-2.4 Lvl) [facility] CentralRhfpmaiQLECYTEXPD1078-77-63 07:17:00 Test Item Value Reference Range Interpretation Comments Segs (test code = Segs) 68.6 45.0-75.0 [facility] CentralOcakjyxJNVQTTJLPC2377-01-04 07:17:00 Test Item Value Reference Range Interpretation Comments Lymphocytes (test code = Lymphocytes) 17.0 20.0-40.0 [facility] CentralHgrsuqcFUMEDRVEPA5298-16-54 07:17:00 Test Item Value Reference Range Interpretation Comments Monocytes (test code = Monocytes) 12.1 2.0-12.0 [facility] CentralUgkrvdgAEEGKDJPUO6640-16-54 07:17:00 Test Item Value Reference Range Interpretation Comments Eosinophils (test code = 1.5 See_Comment [A utomated message] The Eosinophils) system which ge nerated this result tra nsmitted reference range : <=4.0. The reference r maría was not used to int erpret this result as normal/abnormal . [facility] CentralGbfkpjyRMXFAQJUQF1445-48-98 07:17:00 Test Item Value Reference Range Interpretation Comments Basophils (test code = 0.8 See_Comment [Aut omated message] The Basophils) system which ge nerated this result tra nsmitted reference range : <=1.0. The reference r maría was not used to int erpret this result as normal/abnormal . [facility] CentralEnvuukqRGRXFLOTCE4112-67-31 07:17:00 Test Item Value Reference Range Interpretation Comments Neutrophils # (test code = Neutrophils 7.8 1.5-8.1 #) [facility] CentralPatpwngPKQCKRSSYG4475-42-64 07:17:00 Test Item Value Reference Range Interpretation Comments Lymphocytes # (test code = Lymphocytes 1.9 1.0-5.5 #) [facility] CentralCpvcwotYFDJNXEPGI2596-29-93 07:17:00 Test Item Value Reference Range Interpretation Comments Monocytes # (test code 1.4 See_Comment [Aut omated message] The = Monocytes #) system which generated this result tra nsmitted reference range : <=0.8. The reference r maría was not used to int erpret this result as normal/abnormal . [facility] CentralAlcusnyXISRALPVCM4947-49-56 07:17:00 Test Item Value Reference Range Interpretation Comments Eosinophils # (test code 0.2 See_Comment [A utomated message] The = Eosinophils #) system whic h generated this result tra nsmitted reference range : <=0.5. The reference r maría was not used to int erpret this result as normal/abnormal . [facility] CentralMfzbhkyWBRNNRYHRJ6902-90-42 07:17:00 Test Item Value Reference Range Interpretation Comments Basophils # (test code 0.1 See_Comment [Aut omated message] The = Basophils #) system which generated this result tra nsmitted reference range : <=0.2. The reference r maría was not used to int erpret this result as normal/abnormal . [facility]2019-09-12 07:17:00 Test Item Value Reference Range Interpretation Comments Ca Ion WB (test code = Ca Ion WB) 1.20 1.05-1.25 [facility]2019-09-12 07:17:00 Test Item Value Reference Range Interpretation Comments Ca Norm WB (test code = Ca Norm WB) 1.11 1.05-1.25 [facility]2019-09-12 07:17:00 Test Item Value Reference Range Interpretation Comments Phosphorus (test code = Phosphorus) 2.9 2.5-4.5 [facility]2019-09-12 07:17:00 Test Item Value Reference Range Interpretation Comments Magnesium Lvl (test code = Magnesium 2.3 1.8-2.4 Lvl) [facility]HbmepzmDSOVKYERXK0933-44-49 07:17:00 Test Item Value Reference Range Interpretation Comments Segs (test code = Segs) 68.6 45.0-75.0 [facility] CentralAadhqssCLQWMJIMRX3900-56-92 07:17:00 Test Item Value Reference Range Interpretation Comments Lymphocytes (test code = Lymphocytes) 17.0 20.0-40.0 [facility] CentralLlulrdtZLXGRXKXXU8824-65-73 07:17:00 Test Item Value Reference Range Interpretation Comments Monocytes (test code = Monocytes) 12.1 2.0-12.0 [facility] CentralLphxocsEKXDLPJNLU5274-30-97 07:17:00 Test Item Value Reference Range Interpretation Comments Eosinophils (test code = 1.5 See_Comment [A utomated message] The Eosinophils) system which ge nerated this result tra nsmitted reference range : <=4.0. The reference r maría was not used to int erpret this result as normal/abnormal . [facility] CentralGuoyepgPXREPSIBRZ7411-71-27 07:17:00 Test Item Value Reference Range Interpretation Comments Basophils (test code = 0.8 See_Comment [Aut omated message] The Basophils) system which ge nerated this result tra nsmitted reference range : <=1.0. The reference r maría was not used to int erpret this result as normal/abnormal . [facility] CentralJyzdmuaSWJNRPAHHQ3400-17-40 07:17:00 Test Item Value Reference Range Interpretation Comments Neutrophils # (test code = Neutrophils 7.8 1.5-8.1 #) [facility] CentralOvfnwapNLPIZTBWVH9197-11-21 07:17:00 Test Item Value Reference Range Interpretation Comments Lymphocytes # (test code = Lymphocytes 1.9 1.0-5.5 #) [facility] CentralZsjddhsCGODKQXVVW1773-82-30 07:17:00 Test Item Value Reference Range Interpretation Comments Monocytes # (test code 1.4 See_Comment [Aut omated message] The = Monocytes #) system which generated this result tra nsmitted reference range : <=0.8. The reference r maría was not used to int erpret this result as normal/abnormal . [facility] CentralRmdrldrPLVJWXDVIA9479-99-25 07:17:00 Test Item Value Reference Range Interpretation Comments Eosinophils # (test code 0.2 See_Comment [A utomated message] The = Eosinophils #) system whic h generated this result tra nsmitted reference range : <=0.5. The reference r maría was not used to int erpret this result as normal/abnormal . [facility] CentralPtpemthUKYAVVJIVR1257-24-59 07:17:00 Test Item Value Reference Range Interpretation Comments Basophils # (test code 0.1 See_Comment [Aut omated message] The = Basophils #) system which generated this result tra nsmitted reference range : <=0.2. The reference r maría was not used to int erpret this result as normal/abnormal . [facility]2019-09-12 07:17:00 Test Item Value Reference Range Interpretation Comments Ca Ion WB (test code = Ca Ion WB) 1.20 1.05-1.25 [facility]2019-09-12 07:17:00 Test Item Value Reference Range Interpretation Comments Ca Norm WB (test code = Ca Norm WB) 1.11 1.05-1.25 [facility]2019-09-12 07:17:00 Test Item Value Reference Range Interpretation Comments Phosphorus (test code = Phosphorus) 2.9 2.5-4.5 [facility]2019-09-12 07:17:00 Test Item Value Reference Range Interpretation Comments Magnesium Lvl (test code = Magnesium 2.3 1.8-2.4 Lvl) [facility] CentralRmujrbrFHKYTNAZPT7325-17-96 07:17:00 Test Item Value Reference Range Interpretation Comments Segs (test code = Segs) 68.6 45.0-75.0 [facility] CentralDkmbfgbIQPAEGKFUT2495-32-58 07:17:00 Test Item Value Reference Range Interpretation Comments Lymphocytes (test code = Lymphocytes) 17.0 20.0-40.0 [facility] CentralNqrflafJMBSFZTSIB0803-50-12 07:17:00 Test Item Value Reference Range Interpretation Comments Monocytes (test code = Monocytes) 12.1 2.0-12.0 [facility] CentralQfvsuogDIVYKOHDDL8992-86-40 07:17:00 Test Item Value Reference Range Interpretation Comments Eosinophils (test code = 1.5 See_Comment [A utomated message] The Eosinophils) system which ge nerated this result tra nsmitted reference range : <=4.0. The reference r maría was not used to int erpret this result as normal/abnormal . [facility] CentralBmblomwJYBUTTLEEM0609-32-29 07:17:00 Test Item Value Reference Range Interpretation Comments Basophils (test code = 0.8 See_Comment [Aut omated message] The Basophils) system which ge nerated this result tra nsmitted reference range : <=1.0. The reference r maría was not used to int erpret this result as normal/abnormal . [facility] CentralZkvdfhcSIGWTZREOE2659-60-39 07:17:00 Test Item Value Reference Range Interpretation Comments Neutrophils # (test code = Neutrophils 7.8 1.5-8.1 #) [facility] CentralVhiioriRIOLWGTUZW8790-81-39 07:17:00 Test Item Value Reference Range Interpretation Comments Lymphocytes # (test code = Lymphocytes 1.9 1.0-5.5 #) [facility] CentralHuwjsgeGNHOHQINHE8883-36-71 07:17:00 Test Item Value Reference Range Interpretation Comments Monocytes # (test code 1.4 See_Comment [Aut omated message] The = Monocytes #) system which generated this result tra nsmitted reference range : <=0.8. The reference r maría was not used to int erpret this result as normal/abnormal . [facility] CentralEsjgmkhHQHDXTEJRB6086-50-85 07:17:00 Test Item Value Reference Range Interpretation Comments Eosinophils # (test code 0.2 See_Comment [A utomated message] The = Eosinophils #) system whic h generated this result tra nsmitted reference range : <=0.5. The reference r maría was not used to int erpret this result as normal/abnormal . [facility] CentralGfdziwaHKWEHINNWT1549-63-71 07:17:00 Test Item Value Reference Range Interpretation Comments Basophils # (test code 0.1 See_Comment [Aut omated message] The = Basophils #) system which generated this result tra nsmitted reference range : <=0.2. The reference r maría was not used to int erpret this result as normal/abnormal . [facility]2019-09-12 07:17:00 Test Item Value Reference Range Interpretation Comments Ca Ion WB (test code = Ca Ion WB) 1.20 1.05-1.25 [facility]2019-09-12 07:17:00 Test Item Value Reference Range Interpretation Comments Ca Norm WB (test code = Ca Norm WB) 1.11 1.05-1.25 [facility]2019-09-12 07:17:00 Test Item Value Reference Range Interpretation Comments Phosphorus (test code = Phosphorus) 2.9 2.5-4.5 [place] 697309-09-12 07:17:00 Test Item Value Reference Range Interpretation Comments Magnesium Lvl (test code = Magnesium 2.3 1.8-2.4 Lvl) [facility] CentralAzwxjefYUQOKIUIIY7505-98-92 07:17:00 Test Item Value Reference Range Interpretation Comments Segs (test code = Segs) 68.6 45.0-75.0 [facility] CentralUuwklnmWWEMBDTTYA2515-97-42 07:17:00 Test Item Value Reference Range Interpretation Comments Lymphocytes (test code = Lymphocytes) 17.0 20.0-40.0 [facility] CentralByaiqpmDMYUTSRURX8674-44-47 07:17:00 Test Item Value Reference Range Interpretation Comments Monocytes (test code = Monocytes) 12.1 2.0-12.0 [facility] CentralImeabncCOWXOWGJZY9924-28-42 07:17:00 Test Item Value Reference Range Interpretation Comments Eosinophils (test code = 1.5 See_Comment [A utomated message] The Eosinophils) system which ge nerated this result tra nsmitted reference range : <=4.0. The reference r maría was not used to int erpret this result as normal/abnormal . [facility] CentralDjsflskXNCRCAHBXJ9058-47-57 07:17:00 Test Item Value Reference Range Interpretation Comments Basophils (test code = 0.8 See_Comment [Aut omated message] The Basophils) system which ge nerated this result tra nsmitted reference range : <=1.0. The reference r maría was not used to int erpret this result as normal/abnormal . [facility] CentralPpdmlnuHJGXEBTMTY7067-05-44 07:17:00 Test Item Value Reference Range Interpretation Comments Neutrophils # (test code = Neutrophils 7.8 1.5-8.1 #) [facility] CentralNjorqctETGXHOHHAR2256-76-97 07:17:00 Test Item Value Reference Range Interpretation Comments Lymphocytes # (test code = Lymphocytes 1.9 1.0-5.5 #) [facility] CentralBachljcOVHAEVHYTD5818-34-69 07:17:00 Test Item Value Reference Range Interpretation Comments Monocytes # (test code 1.4 See_Comment [Aut omated message] The = Monocytes #) system which generated this result tra nsmitted reference range : <=0.8. The reference r maría was not used to int erpret this result as normal/abnormal . [facility] CentralPxbqfuhPUAVBXTGQG9706-52-26 07:17:00 Test Item Value Reference Range Interpretation Comments Eosinophils # (test code 0.2 See_Comment [A utomated message] The = Eosinophils #) system whic h generated this result tra nsmitted reference range : <=0.5. The reference r maría was not used to int erpret this result as normal/abnormal . [facility] CentralRkvqcroKYFAKBPDVO1004-03-56 07:17:00 Test Item Value Reference Range Interpretation Comments Basophils # (test code 0.1 See_Comment [Aut omated message] The = Basophils #) system which generated this result tra nsmitted reference range : <=0.2. The reference r maría was not used to int erpret this result as normal/abnormal . [facility]2019-09-12 07:17:00 Test Item Value Reference Range Interpretation Comments Ca Ion WB (test code = Ca Ion WB) 1.20 1.05-1.25 [facility]2019-09-12 07:17:00 Test Item Value Reference Range Interpretation Comments Ca Norm WB (test code = Ca Norm WB) 1.11 1.05-1.25 [facility]2019-09-12 07:17:00 Test Item Value Reference Range Interpretation Comments Phosphorus (test code = Phosphorus) 2.9 2.5-4.5 [facility]2019-09-12 07:17:00 Test Item Value Reference Range Interpretation Comments Magnesium Lvl (test code = Magnesium 2.3 1.8-2.4 Lvl) [facility] CentralOutxjgdMWMIHFAIGA8309-46-87 07:17:00 Test Item Value Reference Range Interpretation Comments Segs (test code = Segs) 68.6 45.0-75.0 [facility] CentralRfsllkgFXOAWBBZYL3616-59-95 07:17:00 Test Item Value Reference Range Interpretation Comments Lymphocytes (test code = Lymphocytes) 17.0 20.0-40.0 [facility] CentralQvjwbjjVKXCWQHIRO9751-98-34 07:17:00 Test Item Value Reference Range Interpretation Comments Monocytes (test code = Monocytes) 12.1 2.0-12.0 [facility] CentralJxrltlqYJUWGNJWNM2499-72-55 07:17:00 Test Item Value Reference Range Interpretation Comments Eosinophils (test code = 1.5 See_Comment [A utomated message] The Eosinophils) system which ge nerated this result tra nsmitted reference range : <=4.0. The reference r maría was not used to int erpret this result as normal/abnormal . [facility] CentralHnhfwveTOKJFDOSZE7975-61-15 07:17:00 Test Item Value Reference Range Interpretation Comments Basophils (test code = 0.8 See_Comment [Aut omated message] The Basophils) system which ge nerated this result tra nsmitted reference range : <=1.0. The reference r maría was not used to int erpret this result as normal/abnormal . [facility] CentralBysxmgxJYWBZFQSDD4008-97-32 07:17:00 Test Item Value Reference Range Interpretation Comments Neutrophils # (test code = Neutrophils 7.8 1.5-8.1 #) [facility] CentralXptmmcvEVXPHRQSHL6473-92-20 07:17:00 Test Item Value Reference Range Interpretation Comments Lymphocytes # (test code = Lymphocytes 1.9 1.0-5.5 #) [facility] CentralYmsoqanYZZTKVDLPH7080-13-07 07:17:00 Test Item Value Reference Range Interpretation Comments Monocytes # (test code 1.4 See_Comment [Aut omated message] The = Monocytes #) system which generated this result tra nsmitted reference range : <=0.8. The reference r maría was not used to int erpret this result as normal/abnormal . [facility] CentralCcjdawuYHJWLECHCL1297-40-27 07:17:00 Test Item Value Reference Range Interpretation Comments Eosinophils # (test code 0.2 See_Comment [A utomated message] The = Eosinophils #) system ic h generated this result tra nsmitted reference range : <=0.5. The reference r maría was not used to int erpret this result as normal/abnormal . [facility] CentralYokdqzsHKRNQTRFEQ8516-15-02 07:17:00 Test Item Value Reference Range Interpretation Comments Basophils # (test code 0.1 See_Comment [Aut omated message] The = Basophils #) system which generated this result tra nsmitted reference range : <=0.2. The reference r maría was not used to int erpret this result as normal/abnormal . [facility]2019-09-12 07:17:00 Test Item Value Reference Range Interpretation Comments Ca Ion WB (test code = Ca Ion WB) 1.20 1.05-1.25 [facility]2019-09-12 07:17:00 Test Item Value Reference Range Interpretation Comments Ca Norm WB (test code = Ca Norm WB) 1.11 1.05-1.25 [facility] KEPBN5766-10-21 07:17:00 Test Item Value Reference Range Interpretation Comments Phosphorus (test code = Phosphorus) 2.9 2.5-4.5 [facility] [id number] 07:17:00 Test Item Value Reference Range Interpretation Comments Magnesium Lvl (test code = Magnesium 2.3 1.8-2.4 Lvl) [facility] CentralYuteggrJGARUIBMHG1758-72-40 07:17:00 Test Item Value Reference Range Interpretation Comments Segs (test code = Segs) 68.6 45.0-75.0 [facility] CentralDnkkxswSGRDSCIOUM4291-21-32 07:17:00 Test Item Value Reference Range Interpretation Comments Lymphocytes (test code = Lymphocytes) 17.0 20.0-40.0 [facility] CentralEjxfnhgQFCGDACZCB5773-16-34 07:17:00 Test Item Value Reference Range Interpretation Comments Monocytes (test code = Monocytes) 12.1 2.0-12.0 [facility] CentralTxhgdxmOOSDHZCEWG9509-50-03 07:17:00 Test Item Value Reference Range Interpretation Comments Eosinophils (test code = 1.5 See_Comment [A utomated message] The Eosinophils) system which ge nerated this result tra nsmitted reference range : <=4.0. The reference r maría was not used to int erpret this result as normal/abnormal . [facility] CentralXydejuoFRXGZNRYAJ3222-36-50 07:17:00 Test Item Value Reference Range Interpretation Comments Basophils (test code = 0.8 See_Comment [Aut omated message] The Basophils) system which ge nerated this result tra nsmitted reference range : <=1.0. The reference r maría was not used to int erpret this result as normal/abnormal . [facility] CentralCndrnpkPXXYVGKGDX0222-95-48 07:17:00 Test Item Value Reference Range Interpretation Comments Neutrophils # (test code = Neutrophils 7.8 1.5-8.1 #) [facility] CentralGluncfgGQQTPAFGAS1874-63-19 07:17:00 Test Item Value Reference Range Interpretation Comments Lymphocytes # (test code = Lymphocytes 1.9 1.0-5.5 #) [facility] CentralRqoruvgSPOJIKIIIY6507-03-67 07:17:00 Test Item Value Reference Range Interpretation Comments Monocytes # (test code 1.4 See_Comment [Aut omated message] The = Monocytes #) system which generated this result tra nsmitted reference range : <=0.8. The reference r maría was not used to int erpret this result as normal/abnormal . [facility] CentralIshdfhxFNJAQLXSLL8566-54-72 07:17:00 Test Item Value Reference Range Interpretation Comments Eosinophils # (test code 0.2 See_Comment [A utomated message] The = Eosinophils #) system whic h generated this result tra nsmitted reference range : <=0.5. The reference r maría was not used to int erpret this result as normal/abnormal . [facility] CentralGfewqlhSEWWTTDOTK3242-62-45 07:17:00 Test Item Value Reference Range Interpretation Comments Basophils # (test code 0.1 See_Comment [Aut omated message] The = Basophils #) system which generated this result tra nsmitted reference range : <=0.2. The reference r maría was not used to int erpret this result as normal/abnormal . [facility]2019-09-12 07:17:00 Test Item Value Reference Range Interpretation Comments Ca Ion WB (test code = Ca Ion WB) 1.20 1.05-1.25 [facility]2019-09-12 07:17:00 Test Item Value Reference Range Interpretation Comments Ca Norm WB (test code = Ca Norm WB) 1.11 1.05-1.25 [facility] CenterBACT[facility] - [id number] 09:43:00 Test Item Value Reference Range Interpretation Comments MRSA by PCR (test Negative (05/28/19 4:43 code = MRSA by PCR) AM) [facility] [id number] 09:43:00 Test Item Value Reference Range Interpretation Comments MRSA by PCR (test Negative (05/28/19 4:43 code = MRSA by PCR) AM) [facility] CenterBA[facility] - [id number] 09:43:00 Test Item Value Reference Range Interpretation Comments MRSA by PCR (test Negative (05/28/19 4:43 code = MRSA by PCR) AM) [facility] CenterBA[facility] - [id number] 09:43:00 Test Item Value Reference Range Interpretation Comments MRSA by PCR (test Negative (05/28/19 4:43 code = MRSA by PCR) AM) [facility] CenterBA[facility] - [id number] 09:43:00 Test Item Value Reference Range Interpretation Comments MRSA by PCR (test Negative (05/28/19 4:43 code = MRSA by PCR) AM) [facility] CenterBA[facility] - [id number] 09:43:00 Test Item Value Reference Range Interpretation Comments MRSA by PCR (test Negative (05/28/19 4:43 code = MRSA by PCR) AM) [facility] CenterBA[facility] - [id number] 09:43:00 Test Item Value Reference Range Interpretation Comments MRSA by PCR (test Negative (05/28/19 4:43 code = MRSA by PCR) AM) [facility] CenterBA[facility] - [id number] 09:43:00 Test Item Value Reference Range Interpretation Comments MRSA by PCR (test Negative (05/28/19 4:43 code = MRSA by PCR) AM) [facility] CenterCARDIAC [id number] 05:09:00 Test Item Value Reference Range Interpretation Comments Troponin-I (test code 0.62 See_Comment [Auto mated message] The = Troponin-I) system which g enerated this result transmit maria c reference range : <=0.40. The reference r maría was not used to interpr et this result as karthikeyan l/abnormal. [facility]HbwttnfLPUWHJDOQV7164-30-42 05:09:00 Test Item Value Reference Range Interpretation Comments Segs (test code = Segs) 75.1 45.0-75.0 [facility] HospitalJpidbimKYOVGTBJZC4076-96-27 05:09:00 Test Item Value Reference Range Interpretation Comments Lymphocytes (test code = Lymphocytes) 13.1 20.0-40.0 [facility] HospitalAtnjokeGOBDYONGDZ7939-18-59 05:09:00 Test Item Value Reference Range Interpretation Comments Monocytes (test code = Monocytes) 11.3 2.0-12.0 [facility] HospitalWrzdricVCGGDYTLEW6756-02-69 05:09:00 Test Item Value Reference Range Interpretation Comments Eosinophils (test code = 0.2 See_Comment [A utomated message] The Eosinophils) system which ge nerated this result tra nsmitted reference range : <=4.0. The reference r maría was not used to int erpret this result as normal/abnormal . [facility] HospitalClgkmvjHAWCNIEWQP4132-72-05 05:09:00 Test Item Value Reference Range Interpretation Comments Basophils (test code = 0.3 See_Comment [Aut omated message] The Basophils) system which ge nerated this result tra nsmitted reference range : <=1.0. The reference r maría was not used to int erpret this result as normal/abnormal . [facility] HospitalNwglknkDQGXMLQLEQ2003-78-61 05:09:00 Test Item Value Reference Range Interpretation Comments Neutrophils # (test code = Neutrophils 8.6 1.5-8.1 #) [facility] HospitalUhpywcdCZQSUZRMQI3945-93-28 05:09:00 Test Item Value Reference Range Interpretation Comments Lymphocytes # (test code = Lymphocytes 1.5 1.0-5.5 #) [facility] HospitalMsbkuwzBLUILVAPHS5992-34-80 05:09:00 Test Item Value Reference Range Interpretation Comments Monocytes # (test code 1.3 See_Comment [Aut omated message] The = Monocytes #) system which generated this result tra nsmitted reference range : <=0.8. The reference r maría was not used to int erpret this result as normal/abnormal . [facility] CenterPARATHYROID [id number] 05:09:00 Test Item Value Reference Range Interpretation Comments Ca Ion WB (test code = Ca Ion WB) 1.19 1.05-1.25 [facility] CenterPARATHYROID [id number] 05:09:00 Test Item Value Reference Range Interpretation Comments Ca Norm WB (test code = Ca Norm WB) 1.12 1.05-1.25 [facility] CenterCARDIAC [id number] 05:09:00 Test Item Value Reference Range Interpretation Comments Troponin-I (test code 0.62 See_Comment [Auto mated message] The = Troponin-I) system which g enerated this result transmit maria c reference range : <=0.40. The reference r maría was not used to interpr et this result as karthikeyan l/abnormal. [facility] CenterTwsmezeWARNFJSNGR3694-35-64 05:09:00 Test Item Value Reference Range Interpretation Comments Segs (test code = Segs) 75.1 45.0-75.0 [facility] HospitalBxjkthyXCKXZTNACV9346-38-87 05:09:00 Test Item Value Reference Range Interpretation Comments Lymphocytes (test code = Lymphocytes) 13.1 20.0-40.0 [facility] HospitalBlcddoyEHSNCYYBGL4028-24-42 05:09:00 Test Item Value Reference Range Interpretation Comments Monocytes (test code = Monocytes) 11.3 2.0-12.0 [facility] HospitalMwlrgaaWEWJOHYTQX6256-02-26 05:09:00 Test Item Value Reference Range Interpretation Comments Eosinophils (test code = 0.2 See_Comment [A utomated message] The Eosinophils) system which ge nerated this result tra nsmitted reference range : <=4.0. The reference r maría was not used to int erpret this result as normal/abnormal . [facility] CentralHgvnhpjMARTTVWCQE6524-89-11 05:09:00 Test Item Value Reference Range Interpretation Comments Basophils (test code = 0.3 See_Comment [Aut omated message] The Basophils) system which ge nerated this result tra nsmitted reference range : <=1.0. The reference r maría was not used to int erpret this result as normal/abnormal . [facility] CentralLrcdmdoVTALGUBGPQ6761-83-79 05:09:00 Test Item Value Reference Range Interpretation Comments Neutrophils # (test code = Neutrophils 8.6 1.5-8.1 #) [facility] HospitalBdtaudwKWNFVZAKCF3288-75-01 05:09:00 Test Item Value Reference Range Interpretation Comments Lymphocytes # (test code = Lymphocytes 1.5 1.0-5.5 #) [facility] HospitalEqzmnreWHXTTSOGYA4598-41-99 05:09:00 Test Item Value Reference Range Interpretation Comments Monocytes # (test code 1.3 See_Comment [Aut omated message] The = Monocytes #) system which generated this result tra nsmitted reference range : <=0.8. The reference r maría was not used to int erpret this result as normal/abnormal . [facility] CenterPARATHYROID [id number] 05:09:00 Test Item Value Reference Range Interpretation Comments Ca Ion WB (test code = Ca Ion WB) 1.19 1.05-1.25 [facility] CenterPARATHYROID [id number] 05:09:00 Test Item Value Reference Range Interpretation Comments Ca Norm WB (test code = Ca Norm WB) 1.12 1.05-1.25 [facility]annCARDIAC [id number] 05:09:00 Test Item Value Reference Range Interpretation Comments Troponin-I (test code 0.62 See_Comment [Auto mated message] The = Troponin-I) system which g enerated this result transmit maria c reference range : <=0.40. The reference r maría was not used to interpr et this result as karthikeyan l/abnormal. [facility] CentralNrvljqfZHSDRBYDOO6776-30-04 05:09:00 Test Item Value Reference Range Interpretation Comments Segs (test code = Segs) 75.1 45.0-75.0 [facility] CentralGefduogBBZGKQWORU3218-56-62 05:09:00 Test Item Value Reference Range Interpretation Comments Lymphocytes (test code = Lymphocytes) 13.1 20.0-40.0 [facility] CentralTctnczhUTJCBPSMXZ3886-74-14 05:09:00 Test Item Value Reference Range Interpretation Comments Monocytes (test code = Monocytes) 11.3 2.0-12.0 [facility] CentralMplowgrXESDILRQPL2101-43-63 05:09:00 Test Item Value Reference Range Interpretation Comments Eosinophils (test code = 0.2 See_Comment [A utomated message] The Eosinophils) system which ge nerated this result tra nsmitted reference range : <=4.0. The reference r maría was not used to int erpret this result as normal/abnormal . [facility] CentralVyzjwawIIKPKCJVBJ5810-25-85 05:09:00 Test Item Value Reference Range Interpretation Comments Basophils (test code = 0.3 See_Comment [Aut omated message] The Basophils) system which ge nerated this result tra nsmitted reference range : <=1.0. The reference r maría was not used to int erpret this result as normal/abnormal . [facility] CentralFlhugopLBYQMWOIVP0458-62-63 05:09:00 Test Item Value Reference Range Interpretation Comments Neutrophils # (test code = Neutrophils 8.6 1.5-8.1 #) [facility] CentralTxkrjfkNBYCZCHNGT9983-50-90 05:09:00 Test Item Value Reference Range Interpretation Comments Lymphocytes # (test code = Lymphocytes 1.5 1.0-5.5 #) [facility] CentralVmjqmgfFMCPJABOCJ0822-93-14 05:09:00 Test Item Value Reference Range Interpretation Comments Monocytes # (test code 1.3 See_Comment [Aut omated message] The = Monocytes #) system which generated this result tra nsmitted reference range : <=0.8. The reference r maría was not used to int erpret this result as normal/abnormal . [facility]annPARATHYROID UMEDHLA7527-67-30 05:09:00 Test Item Value Reference Range Interpretation Comments Ca Ion WB (test code = Ca Ion WB) 1.19 1.05-1.25 [facility]annPARATHYROID [id number] 05:09:00 Test Item Value Reference Range Interpretation Comments Ca Norm WB (test code = Ca Norm WB) 1.12 1.05-1.25 [facility]annCARDIAC [id number] 05:09:00 Test Item Value Reference Range Interpretation Comments Troponin-I (test code 0.62 See_Comment [Auto mated message] The = Troponin-I) system which g enerated this result transmit maria c reference range : <=0.40. The reference r maría was not used to interpr et this result as karthikeyan l/abnormal. [facility] CenterSrorjijBMEAHQSXTP2370-04-40 05:09:00 Test Item Value Reference Range Interpretation Comments Segs (test code = Segs) 75.1 45.0-75.0 [facility] HospitalWnuwftvEVLALNUBLN5087-74-26 05:09:00 Test Item Value Reference Range Interpretation Comments Lymphocytes (test code = Lymphocytes) 13.1 20.0-40.0 [facility] CenterAbspzhwFZUHKOQBQD2905-36-30 05:09:00 Test Item Value Reference Range Interpretation Comments Monocytes (test code = Monocytes) 11.3 2.0-12.0 [facility] CenterUabpmnjKUFTORVZSK2184-97-23 05:09:00 Test Item Value Reference Range Interpretation Comments Eosinophils (test code = 0.2 See_Comment [A utomated message] The Eosinophils) system which ge nerated this result tra nsmitted reference range : <=4.0. The reference r maría was not used to int erpret this result as normal/abnormal . [facility] HospitalAmizuijAKSWZGSBLV3699-15-47 05:09:00 Test Item Value Reference Range Interpretation Comments Basophils (test code = 0.3 See_Comment [Aut omated message] The Basophils) system which ge nerated this result tra nsmitted reference range : <=1.0. The reference r maría was not used to int erpret this result as normal/abnormal . [facility] HospitalCmsflbyYPZNVMTUOW3038-25-86 05:09:00 Test Item Value Reference Range Interpretation Comments Neutrophils # (test code = Neutrophils 8.6 1.5-8.1 #) [facility] CenterHqnbjhbAVDHZUXISP8138-41-26 05:09:00 Test Item Value Reference Range Interpretation Comments Lymphocytes # (test code = Lymphocytes 1.5 1.0-5.5 #) [facility] CenterOmmcogtZUMYYIUXID5403-98-20 05:09:00 Test Item Value Reference Range Interpretation Comments Monocytes # (test code 1.3 See_Comment [Aut omated message] The = Monocytes #) system which generated this result tra nsmitted reference range : <=0.8. The reference r maría was not used to int erpret this result as normal/abnormal . [facility] GXAHYME5078-59-60 05:09:00 Test Item Value Reference Range Interpretation Comments Ca Ion WB (test code = Ca Ion WB) 1.19 1.05-1.25 [facility] CenterATHYROID [id number] 05:09:00 Test Item Value Reference Range Interpretation Comments Ca Norm WB (test code = Ca Norm WB) 1.12 1.05-1.25 [facility] CenterCARDIAC EIGXROA1970-11-47 05:09:00 Test Item Value Reference Range Interpretation Comments Troponin-I (test code 0.62 See_Comment [Auto mated message] The = Troponin-I) system which g enerated this result transmit maria c reference range : <=0.40. The reference r maría was not used to interpr et this result as karthikeyan l/abnormal. [facility] HospitalBoyppttONUTSRGYBA5531-40-69 05:09:00 Test Item Value Reference Range Interpretation Comments Segs (test code = Segs) 75.1 45.0-75.0 [facility] HospitalNbyflvvHZVBCFYKEK2557-03-23 05:09:00 Test Item Value Reference Range Interpretation Comments Lymphocytes (test code = Lymphocytes) 13.1 20.0-40.0 [facility] HospitalHbyhxpgKFPLUOMXKB8716-26-74 05:09:00 Test Item Value Reference Range Interpretation Comments Monocytes (test code = Monocytes) 11.3 2.0-12.0 [facility] CenterHkeppgcGWUFFPGNBE0014-50-12 05:09:00 Test Item Value Reference Range Interpretation Comments Eosinophils (test code = 0.2 See_Comment [A utomated message] The Eosinophils) system which ge nerated this result tra nsmitted reference range : <=4.0. The reference r maría was not used to int erpret this result as normal/abnormal . [facility] HospitalZigdcqfRUFNUOURWZ7523-52-19 05:09:00 Test Item Value Reference Range Interpretation Comments Basophils (test code = 0.3 See_Comment [Aut omated message] The Basophils) system which ge nerated this result tra nsmitted reference range : <=1.0. The reference r maría was not used to int erpret this result as normal/abnormal . [facility] HospitalLjbrhavTVNKQKXUGZ3126-65-24 05:09:00 Test Item Value Reference Range Interpretation Comments Neutrophils # (test code = Neutrophils 8.6 1.5-8.1 #) [facility] HospitalPlhobuvISDPAKSLGC8493-62-78 05:09:00 Test Item Value Reference Range Interpretation Comments Lymphocytes # (test code = Lymphocytes 1.5 1.0-5.5 #) [facility] HospitalUcljoylHHUWHBIKFN3147-08-50 05:09:00 Test Item Value Reference Range Interpretation Comments Monocytes # (test code 1.3 See_Comment [Aut omated message] The = Monocytes #) system which generated this result tra nsmitted reference range : <=0.8. The reference r maría was not used to int erpret this result as normal/abnormal . [facility] CenterPARATHYROID INTBQGQ1815-76-94 05:09:00 Test Item Value Reference Range Interpretation Comments Ca Ion WB (test code = Ca Ion WB) 1.19 1.05-1.25 [facility]annPARATHYROID ILNYJOF8304-51-12 05:09:00 Test Item Value Reference Range Interpretation Comments Ca Norm WB (test code = Ca Norm WB) 1.12 1.05-1.25 [facility] CenterCARDIAC AVZJNPL8498-40-56 05:09:00 Test Item Value Reference Range Interpretation Comments Troponin-I (test code 0.62 See_Comment [Auto mated message] The = Troponin-I) system which g enerated this result transmit maria c reference range : <=0.40. The reference r maría was not used to interpr et this result as karthikeyan l/abnormal. [facility] CenterMzmpjvaJCZXVTERFL3993-44-73 05:09:00 Test Item Value Reference Range Interpretation Comments Segs (test code = Segs) 75.1 45.0-75.0 [facility] CentralPuzukkmKYDIRAGANI6635-57-28 05:09:00 Test Item Value Reference Range Interpretation Comments Lymphocytes (test code = Lymphocytes) 13.1 20.0-40.0 [facility] CentralZhuafumHDMEHBTDYM4724-51-97 05:09:00 Test Item Value Reference Range Interpretation Comments Monocytes (test code = Monocytes) 11.3 2.0-12.0 [facility] CentralWkztcpfBXDEGDDMZD9834-38-89 05:09:00 Test Item Value Reference Range Interpretation Comments Eosinophils (test code = 0.2 See_Comment [A utomated message] The Eosinophils) system which ge nerated this result tra nsmitted reference range : <=4.0. The reference r maría was not used to int erpret this result as normal/abnormal . [facility] CentralEjocfciAKHLYAVVBI2143-04-12 05:09:00 Test Item Value Reference Range Interpretation Comments Basophils (test code = 0.3 See_Comment [Aut omated message] The Basophils) system which ge nerated this result tra nsmitted reference range : <=1.0. The reference r maría was not used to int erpret this result as normal/abnormal . [facility] CentralSsvbwxuAXLJSWOKHB5496-56-92 05:09:00 Test Item Value Reference Range Interpretation Comments Neutrophils # (test code = Neutrophils 8.6 1.5-8.1 #) [facility] CentralOdgjxpzTZDWGGOELS1546-73-17 05:09:00 Test Item Value Reference Range Interpretation Comments Lymphocytes # (test code = Lymphocytes 1.5 1.0-5.5 #) [facility] CentralEusfczpDTMETSPIDW5518-82-66 05:09:00 Test Item Value Reference Range Interpretation Comments Monocytes # (test code 1.3 See_Comment [Aut omated message] The = Monocytes #) system which generated this result tra nsmitted reference range : <=0.8. The reference r maría was not used to int erpret this result as normal/abnormal . [facility]2019-09-11 05:09:00 Test Item Value Reference Range Interpretation Comments Ca Ion WB (test code = Ca Ion WB) 1.19 1.05-1.25 [facility]2019-09-11 05:09:00 Test Item Value Reference Range Interpretation Comments Ca Norm WB (test code = Ca Norm WB) 1.12 1.05-1.25 [facility] CenterCARDIAC UGFFHNJ4588-60-33 05:09:00 Test Item Value Reference Range Interpretation Comments Troponin-I (test code 0.62 See_Comment [Auto mated message] The = Troponin-I) system which g enerated this result transmit maria c reference range : <=0.40. The reference r maría was not used to interpr et this result as karthikeyan l/abnormal. [facility] CentralRlxniiwYEAUCIPXKA2151-17-54 05:09:00 Test Item Value Reference Range Interpretation Comments Segs (test code = Segs) 75.1 45.0-75.0 [facility] CentralUwiwbkiIJDZOPNMXQ0960-85-31 05:09:00 Test Item Value Reference Range Interpretation Comments Lymphocytes (test code = Lymphocytes) 13.1 20.0-40.0 [facility] CentralBchybovIZYVWCGSJO2805-32-25 05:09:00 Test Item Value Reference Range Interpretation Comments Monocytes (test code = Monocytes) 11.3 2.0-12.0 [facility] CentralZvtakbnWNJKTIBAUE6696-10-90 05:09:00 Test Item Value Reference Range Interpretation Comments Eosinophils (test code = 0.2 See_Comment [A utomated message] The Eosinophils) system which ge nerated this result tra nsmitted reference range : <=4.0. The reference r maría was not used to int erpret this result as normal/abnormal . [facility] CentralWjhqwbkYZJBPTWBAA0646-87-34 05:09:00 Test Item Value Reference Range Interpretation Comments Basophils (test code = 0.3 See_Comment [Aut omated message] The Basophils) system which ge nerated this result tra nsmitted reference range : <=1.0. The reference r maría was not used to int erpret this result as normal/abnormal . [facility] CentralBzfpsveOXPUNPHNPJ0616-60-43 05:09:00 Test Item Value Reference Range Interpretation Comments Neutrophils # (test code = Neutrophils 8.6 1.5-8.1 #) [facility] CentralDkmbmwlWKPHXKXIME4017-36-60 05:09:00 Test Item Value Reference Range Interpretation Comments Lymphocytes # (test code = Lymphocytes 1.5 1.0-5.5 #) [facility] CentralIhnvlpmXMEFXLPODU1213-28-18 05:09:00 Test Item Value Reference Range Interpretation Comments Monocytes # (test code 1.3 See_Comment [Aut omated message] The = Monocytes #) system which generated this result tra nsmitted reference range : <=0.8. The reference r maría was not used to int erpret this result as normal/abnormal . [facility] CenterPARATHYROID VMVSSMC7432-99-53 05:09:00 Test Item Value Reference Range Interpretation Comments Ca Ion WB (test code = Ca Ion WB) 1.19 1.05-1.25 [facility]annPARATHYROID JQPKWIL7296-81-10 05:09:00 Test Item Value Reference Range Interpretation Comments Ca Norm WB (test code = Ca Norm WB) 1.12 1.05-1.25 [facility] HospitalannCARDIAC [id number] 05:09:00 Test Item Value Reference Range Interpretation Comments Troponin-I (test code 0.62 See_Comment [Auto mated message] The = Troponin-I) system which g enerated this result transmit maria c reference range : <=0.40. The reference r maría was not used to interpr et this result as karthikeyan l/abnormal. [facility] CenterUfapaizHIVFEQGMUE5472-18-22 05:09:00 Test Item Value Reference Range Interpretation Comments Segs (test code = Segs) 75.1 45.0-75.0 [facility] HospitalOlkkolcNHOBCIBBOL4538-19-58 05:09:00 Test Item Value Reference Range Interpretation Comments Lymphocytes (test code = Lymphocytes) 13.1 20.0-40.0 [facility] CenterIznqmqwPLBEFHVTLA8005-95-82 05:09:00 Test Item Value Reference Range Interpretation Comments Monocytes (test code = Monocytes) 11.3 2.0-12.0 [facility] HospitalMndcckhRDGOUVHNZR3342-75-29 05:09:00 Test Item Value Reference Range Interpretation Comments Eosinophils (test code = 0.2 See_Comment [A utomated message] The Eosinophils) system which ge nerated this result tra nsmitted reference range : <=4.0. The reference r maría was not used to int erpret this result as normal/abnormal . [facility] HospitalJezapjcKQNIJJCXPW3540-43-04 05:09:00 Test Item Value Reference Range Interpretation Comments Basophils (test code = 0.3 See_Comment [Aut omated message] The Basophils) system which ge nerated this result tra nsmitted reference range : <=1.0. The reference r maría was not used to int erpret this result as normal/abnormal . [facility] CentralDhaxklzRGCPZCYJUB8602-71-79 05:09:00 Test Item Value Reference Range Interpretation Comments Neutrophils # (test code = Neutrophils 8.6 1.5-8.1 #) [facility] CentralYylpfkwLNXODTKFHD8263-95-93 05:09:00 Test Item Value Reference Range Interpretation Comments Lymphocytes # (test code = Lymphocytes 1.5 1.0-5.5 #) [facility] CentralYugsqotRPGYGCYXCA3852-41-34 05:09:00 Test Item Value Reference Range Interpretation Comments Monocytes # (test code 1.3 See_Comment [Aut omated message] The = Monocytes #) system which generated this result tra nsmitted reference range : <=0.8. The reference r maría was not used to int erpret this result as normal/abnormal . [facility]2019-09-11 05:09:00 Test Item Value Reference Range Interpretation Comments Ca Ion WB (test code = Ca Ion WB) 1.19 1.05-1.25 [facility]2019-09-11 05:09:00 Test Item Value Reference Range Interpretation Comments Ca Norm WB (test code = Ca Norm WB) 1.12 1.05-1.25 [facility] CenterGeo RenewablesNORTON [facility] [id number] 21:41:00 Test Item Value Reference Range Interpretation Comments Troponin-I (test code 0.73 See_Comment [Auto mated message] The = Troponin-I) system which g enerated this result transmit maria c reference range : <=0.40. The reference r maría was not used to interpr et this result as karthikeyan l/abnormal. [facility] CenterNeurotech YACXJVW2390-42-58 21:41:00 Test Item Value Reference Range Interpretation Comments Troponin-I (test code 0.73 See_Comment [Auto mated message] The = Troponin-I) system which g enerated this result transmit maria c reference range : <=0.40. The reference r maría was not used to interpr et this result as karthikeyan l/abnormal. [facility] CenterNeurotech [id number] 21:41:00 Test Item Value Reference Range Interpretation Comments Troponin-I (test code 0.73 See_Comment [Auto mated message] The = Troponin-I) system which g enerated this result transmit maria c reference range : <=0.40. The reference r maría was not used to interpr et this result as karthikeyan l/abnormal. [facility] CenterXConnect Global NetworksVXUOQZY7806-54-21 21:41:00 Test Item Value Reference Range Interpretation Comments Troponin-I (test code 0.73 See_Comment [Auto mated message] The = Troponin-I) system which g enerated this result transmit maria c reference range : <=0.40. The reference r maría was not used to interpr et this result as karthikeyan l/abnormal. [facility] CenterNeurotech PBZNBHD1030-17-08 21:41:00 Test Item Value Reference Range Interpretation Comments Troponin-I (test code 0.73 See_Comment [Auto mated message] The = Troponin-I) system which g enerated this result transmit maria c reference range : <=0.40. The reference r maría was not used to interpr et this result as karthikeyan l/abnormal. [facility] HospitalTobosu.com2019-[facility]-10 21:41:00 Test Item Value Reference Range Interpretation Comments Troponin-I (test code 0.73 See_Comment [Auto mated message] The = Troponin-I) system which g enerated this result transmit maria c reference range : <=0.40. The reference r maría was not used to interpr et this result as karthikeyan l/abnormal. [facility] [email or web address] 21:41:00 Test Item Value Reference Range Interpretation Comments Troponin-I (test code 0.73 See_Comment [Auto mated message] The = Troponin-I) system which g enerated this result transmit maria c reference range : <=0.40. The reference r maría was not used to interpr et this result as karthikeyan l/abnormal. [facility] [email or web address] 21:41:00 Test Item Value Reference Range Interpretation Comments Troponin-I (test code 0.73 See_Comment [Auto mated message] The = Troponin-I) system which g enerated this result transmit maria c reference range : <=0.40. The reference r maría was not used to interpr et this result as karthikeyan l/abnormal. [facility] [email or web address] 14:27:00 Test Item Value Reference Range Interpretation Comments Troponin-I (test code 0.53 See_Comment [Auto mated message] The = Troponin-I) system which g enerated this result transmit maria c reference range : <=0.40. The reference r maría was not used to interpr et this result as karthikeyan l/abnormal. [facility] [email or web address] 14:27:00 Test Item Value Reference Range Interpretation Comments Troponin-I (test code 0.53 See_Comment [Auto mated message] The = Troponin-I) system which g enerated this result transmit maria c reference range : <=0.40. The reference r maría was not used to interpr et this result as karthikeyan l/abnormal. [facility] [email or web address] 14:27:00 Test Item Value Reference Range Interpretation Comments Troponin-I (test code 0.53 See_Comment [Auto mated message] The = Troponin-I) system which g enerated this result transmit maria c reference range : <=0.40. The reference r maría was not used to interpr et this result as karthikeyan l/abnormal. [facility] [email or web address] 14:27:00 Test Item Value Reference Range Interpretation Comments Troponin-I (test code 0.53 See_Comment [Auto mated message] The = Troponin-I) system which g enerated this result transmit maria c reference range : <=0.40. The reference r maría was not used to interpr et this result as karthikeyan l/abnormal. [facility] [email or web address] 14:27:00 Test Item Value Reference Range Interpretation Comments Troponin-I (test code 0.53 See_Comment [Auto mated message] The = Troponin-I) system which g enerated this result transmit maria c reference range : <=0.40. The reference r maría was not used to interpr et this result as karthikeyan l/abnormal. [facility] [email or web address] 14:27:00 Test Item Value Reference Range Interpretation Comments Troponin-I (test code 0.53 See_Comment [Auto mated message] The = Troponin-I) system which g enerated this result transmit maira c reference range : <=0.40. The reference r maría was not used to interpr et this result as karthikeyan l/abnormal. [facility] [email or web address] 14:27:00 Test Item Value Reference Range Interpretation Comments Troponin-I (test code 0.53 See_Comment [Auto mated message] The = Troponin-I) system which g enerated this result transmit maria c reference range : <=0.40. The reference r maría was not used to interpr et this result as karthikeyan l/abnormal. [facility] HospitalManDISINAI-GRACE HOSPITALDRDSGWN3003-23-20 14:27:00 Test Item Value Reference Range Interpretation Comments Troponin-I (test code 0.53 See_Comment [Auto mated message] The = Troponin-I) system which g enerated this result transmit maria c reference range : <=0.40. The reference r maría was not used to interpr et this result as karthikeyan l/abnormal. [facility] HospitalannCIPROFLOXACIN:SUSC:PT:ISOLATE:ORDQN:[id number] 13:00:00 Test Item Value Reference Range Interpretation Comments Gram Stain Report Gram Stain Performed By: (test code = Gram [facility] Stain Report) [facility] HospitalrachnaCIPROFLOXACIN:SUSC:PT:ISOLATE:ORDQN:[id number] 13:00:00 Test Item Value Reference Range Interpretation Comments Culture: Respiratory Few Serratia w/Gram Stain (test code marcescens Few Yeast = Culture: Respiratory Normal Respiratory w/Gram Stain) Cynthia Isolated [facility] HospitalannCIPROFLOXACIN:SUSC:PT:ISOLATE:ORDQN:[id number] 13:00:00 Test Item Value Reference Range Interpretation Comments Serratia marcescens (test Serratia marcescens code = Serratia marcescens) [facility] HospitalannCIPROFLOXACIN:SUSC:PT:ISOLATE:ORDQN:[id number] 13:00:00 Test Item Value Reference Range Interpretation Comments Gram Stain Report Gram Stain Performed By: (test code = Gram [facility] Stain Report) [facility] HospitalannCIPROFLOXACIN:SUSC:PT:ISOLATE:ORDQN:[id number] 13:00:00 Test Item Value Reference Range Interpretation Comments Culture: Respiratory Few Serratia w/Gram Stain (test code marcescens Few Yeast = Culture: Respiratory Normal Respiratory w/Gram Stain) [facility]thia Isolated [facility] HospitalannCIPROFLOXACIN:SUSC:PT:ISOLATE:ORDQN:[id number] 13:00:00 Test Item Value Reference Range Interpretation Comments Serratia marcescens (test Serratia marcescens code = Serratia marcescens) [facility] CenterCIPROFLOXACIN:SUSC:PT:ISOLATE:ORDQN:[id number] 13:00:00 Test Item Value Reference Range Interpretation Comments Gram Stain Report Gram Stain Performed By: (test code = Gram [facility] Stain Report) [facility]CIPROFLOXACIN:SUSC:PT:ISOLATE:ORDQN:[id number] 13:00:00 Test Item Value Reference Range Interpretation Comments Culture: Respiratory Few Serratia w/Gram Stain (test code marcescens Few Yeast = Culture: Respiratory Normal Respiratory w/Gram Stain) Cynthia Isolated [facility] HospitalPROFLOXACIN:SUSC:PT:ISOLATE:ORDQN:[id number] 13:00:00 Test Item Value Reference Range Interpretation Comments Serratia marcescens (test Serratia marcescens code = Serratia marcescens) [facility] [facility]CIPROFLOXACIN[facility]SUSC:PT:ISOLATE:ORDQN:[id number] 13:00:00 Test Item Value Reference Range Interpretation Comments Gram Stain Report Gram Stain Performed By: (test code = Gram [facility] Stain Report) [facility]USC:PT:ISOLATE:ORDQN:[id number] 13:00:00 Test Item Value Reference Range Interpretation Comments Culture: Respiratory Few Serratia w/Gram Stain (test code marcescens Few Yeast = Culture: Respiratory Normal Respiratory w/Gram Stain) [facility] Isolated [facility]CIPROFLOXACIN[facility]SUSC:PT:ISOLATE:ORDQN:[id number] 13:00:00 Test Item Value Reference Range Interpretation Comments Serratia marcescens (test Serratia marcescens code = Serratia marcescens) [facility] CenterCIPROFLOXACIN:SUSC:PT:ISOLATE:ORDQN:[id number] 13:00:00 Test Item Value Reference Range Interpretation Comments Gram Stain Report Gram Stain Performed By: (test code = Gram [facility] Stain Report) [facility] [place]SUSC:PT:ISOLATE:ORDQN:[id number] 13:00:00 Test Item Value Reference Range Interpretation Comments Culture: Respiratory Few Serratia w/Gram Stain (test code marcescens Few Yeast = Culture: Respiratory Normal Respiratory w/Gram Stain) [facility] Isolated [facility] CenterCIPRO[facility]OXACIN:SUSC:PT:ISOLATE:ORDQN:[id number] 13:00:00 Test Item Value Reference Range Interpretation Comments Serratia marcescens (test Serratia marcescens code = Serratia marcescens) [facility] CenterCIPROFLOXACIN:SUSC:PT:ISOLATE:ORDQN:[id number] 13:00:00 Test Item Value Reference Range Interpretation Comments Gram Stain Report Gram Stain Performed By: (test code = Gram [facility] Stain Report) [facility] [place]:SUSC:PT:ISOLATE:ORDQN:[id number] 13:00:00 Test Item Value Reference Range Interpretation Comments Culture: Respiratory Few Serratia w/Gram Stain (test code marcescens Few Yeast = Culture: Respiratory Normal Respiratory w/Gram Stain) [facility]olated [facility]:PT:ISOLATE:ORDQN:[id number] 13:00:00 Test Item Value Reference Range Interpretation Comments Serratia marcescens (test Serratia marcescens code = Serratia marcescens) [facility] CenterCIPROFLOXACIN:SUSC:PT:ISOLATE:ORDQN:[id number] 13:00:00 Test Item Value Reference Range Interpretation Comments Gram Stain Report Gram Stain Performed By: (test code = Gram [facility] Stain Report) [facility] [place]:SUSC:PT:ISOLATE:ORDQN:[id number] 13:00:00 Test Item Value Reference Range Interpretation Comments Culture: Respiratory Few Serratia w/Gram Stain (test code marcescens Few Yeast = Culture: Respiratory Normal Respiratory w/Gram Stain) [facility]thia [facility]olated [facility] HospitalPROFLOXACIN:SUSC:PT:ISOLATE:ORDQN:[id number] 13:00:00 Test Item Value Reference Range Interpretation Comments Serratia marcescens (test Serratia marcescens code = Serratia marcescens) [facility] CenterCIPROFLOXACIN:SUSC:PT:ISOLATE:ORDQN:[id number] 13:00:00 Test Item Value Reference Range Interpretation Comments Gram Stain Report Gram Stain Performed By: (test code = Gram [facility] Stain Report) [facility] [place]OX[facility]:SUSC:PT:ISOLATE:ORDQN:[id number] 13:00:00 Test Item Value Reference Range Interpretation Comments Culture: Respiratory Few Serratia w/Gram Stain (test code marcescens Few Yeast = Culture: Respiratory Normal Respiratory w/Gram Stain) [facility] Isolated [facility] CenterCIPROFLOXACIN:SUSC:PT:ISOLATE:ORDQN:[id number] 13:00:00 Test Item Value Reference Range Interpretation Comments Serratia marcescens (test Serratia marcescens code = Serratia marcescens) [facility]2019-09-10 05:32:00 Test Item Value Reference Range Interpretation Comments Total Protein (test code = Total 6.6 6.4-8.4 Protein) [facility]2019-09-10 05:32:00 Test Item Value Reference Range Interpretation Comments Albumin Lvl (test code = Albumin Lvl) 3.3 3.5-5.0 [facility]2019-09-10 05:32:00 Test Item Value Reference Range Interpretation Comments ALT (test code = ALT) 28 See_Comment [Auto mated message] The system which ge nerated this result transmit maria c reference range : <=65. The reference range was not used to interpr et this result as karthikeyan l/abnormal. [facility]2019-09-10 05:32:00 Test Item Value Reference Range Interpretation Comments AST (test code = AST) 38 See_Comment [Auto mated message] The system which ge nerated this result transmit maria c reference range : <=37. The reference range was not used to interpr et this result as karthikeyan l/abnormal. [facility] CenterI Like My Waitress [id number] 05:32:00 Test Item Value Reference Range Interpretation Comments Alk Phos (test code = Alk Phos) 77 39-136 [facility]2019-09-10 05:32:00 Test Item Value Reference Range Interpretation Comments Bili Total (test code = Bili Total) 0.5 0.2-1.3 [facility]2019-09-10 05:32:00 Test Item Value Reference Range Interpretation Comments B/C Ratio (test code = B/C Ratio) 24 1 6-25 [facility]2019-09-10 05:32:00 Test Item Value Reference Range Interpretation Comments Globulin (test code = Globulin) 3.3 2.7-4.2 [facility]2019-09-10 05:32:00 Test Item Value Reference Range Interpretation Comments A/G Ratio (test code = A/G Ratio) 1.0 1 0.7-1.6 [facility]2019-09-10 05:32:00 Test Item Value Reference Range Interpretation Comments Procalcitonin Lvl (test 5.00 See_Comment [Au tomated message] code = Procalcitonin Lvl) Th e system which generated this result transmitted ref erence range: <=0.10. The reference range was not used to interpr et this result as normal/abnormal . [facility] [id number] 05:32:00 Test Item Value Reference Range Interpretation Comments Segs (test code = Segs) 76.1 45.0-75.0 [facility] [id number] 05:32:00 Test Item Value Reference Range Interpretation Comments Lymphocytes (test code = Lymphocytes) 12.8 20.0-40.0 [facility] [id number] 05:32:00 Test Item Value Reference Range Interpretation Comments Monocytes (test code = Monocytes) 10.8 2.0-12.0 [facility] CentralRdqjoppYDOKTKZXYJ6413-31-90 05:32:00 Test Item Value Reference Range Interpretation Comments Basophils (test code = 0.3 See_Comment [Aut omated message] The Basophils) system which ge nerated this result tra nsmitted reference range : <=1.0. The reference r maría was not used to int erpret this result as normal/abnormal . [facility] [id number] 05:32:00 Test Item Value Reference Range Interpretation Comments Neutrophils # (test code = Neutrophils 12.4 1.5-8.1 #) [facility] [id number] 05:32:00 Test Item Value Reference Range Interpretation Comments Lymphocytes # (test code = Lymphocytes 2.1 1.0-5.5 #) [facility] CentralRybxyaaVUCERBWQFZ5174-22-03 05:32:00 Test Item Value Reference Range Interpretation Comments Monocytes # (test code 1.8 See_Comment [Aut omated message] The = Monocytes #) system which generated this result tra nsmitted reference range : <=0.8. The reference r maría was not used to int erpret this result as normal/abnormal . [id number] 05:32:00 Test Item Value Reference Range Interpretation Comments Ca Ion WB (test code = Ca Ion WB) 1.07 1.05-1.25 [facility] [id number] 05:32:00 Test Item Value Reference Range Interpretation Comments Ca Norm WB (test code = Ca Norm WB) 1.04 1.05-1.25 [facility] [id number] 05:32:00 Test Item Value Reference Range Interpretation Comments U Creatinine (test code = U 184.00 Creatinine) [facility] [id number] 05:32:00 Test Item Value Reference Range Interpretation Comments U Protein (test code = U Protein) 39.4 [facility]2019-09-10 05:32:00 Test Item Value Reference Range Interpretation Comments U Prot/Creat (test code = U 0.21 1 Prot/Creat) [facility] CenterCulture: [id number] 05:32:00 Test Item Value Reference Range Interpretation Comments Culture: Urine (test code = No Growth Culture: Urine) [facility] [id number] 05:32:00 Test Item Value Reference Range Interpretation Comments Total Protein (test code = Total 6.6 6.4-8.4 Protein) [facility] [id number] 05:32:00 Test Item Value Reference Range Interpretation Comments Albumin Lvl (test code = Albumin Lvl) 3.3 3.5-5.0 [facility]2019-09-10 05:32:00 Test Item Value Reference Range Interpretation Comments ALT (test code = ALT) 28 See_Comment [Auto mated message] The system which ge nerated this result transmit maria c reference range : <=65. The reference range was not used to interpr et this result as karthikeyan l/abnormal. [facility] [id number] 05:32:00 Test Item Value Reference Range Interpretation Comments AST (test code = AST) 38 See_Comment [Auto mated message] The system which ge nerated this result transmit maria c reference range : <=37. The reference range was not used to interpr et this result as karthikeyan l/abnormal. [facility]2019-09-10 05:32:00 Test Item Value Reference Range Interpretation Comments Alk Phos (test code = Alk Phos) 77 39-136 [facility]2019-09-10 05:32:00 Test Item Value Reference Range Interpretation Comments Bili Total (test code = Bili Total) 0.5 0.2-1.3 [facility]2019-09-10 05:32:00 Test Item Value Reference Range Interpretation Comments B/C Ratio (test code = B/C Ratio) 24 1 6-25 [facility]2019-09-10 05:32:00 Test Item Value Reference Range Interpretation Comments Globulin (test code = Globulin) 3.3 2.7-4.2 [facility]2019-09-10 05:32:00 Test Item Value Reference Range Interpretation Comments A/G Ratio (test code = A/G Ratio) 1.0 1 0.7-1.6 [facility]2019-09-10 05:32:00 Test Item Value Reference Range Interpretation Comments Procalcitonin Lvl (test 5.00 See_Comment [Au tomated message] code = Procalcitonin Lvl) Th e system which generated this result transmitted ref erence range: <=0.10. The reference range was not used to interpr et this result as normal/abnormal . [facility] CentralYxnwqopRNQIQRTPDN6517-31-27 05:32:00 Test Item Value Reference Range Interpretation Comments Segs (test code = Segs) 76.1 45.0-75.0 [facility] [id number] 05:32:00 Test Item Value Reference Range Interpretation Comments Lymphocytes (test code = Lymphocytes) 12.8 20.0-40.0 [facility] CentralYrdrnnbLONARQNIBR0849-94-17 05:32:00 Test Item Value Reference Range Interpretation Comments Monocytes (test code = Monocytes) 10.8 2.0-12.0 [facility] CentralMemjmkpQNFVHFILFB5306-25-55 05:32:00 Test Item Value Reference Range Interpretation Comments Basophils (test code = 0.3 See_Comment [Aut omated message] The Basophils) system which ge nerated this result tra nsmitted reference range : <=1.0. The reference r maría was not used to int erpret this result as normal/abnormal . [facility] HospitalLvcnlrtDXCQPSAUEN9055-67-41 05:32:00 Test Item Value Reference Range Interpretation Comments Neutrophils # (test code = Neutrophils 12.4 1.5-8.1 #) [facility] CenterLllxspgFDMHDCYBGF8564-51-44 05:32:00 Test Item Value Reference Range Interpretation Comments Lymphocytes # (test code = Lymphocytes 2.1 1.0-5.5 #) [facility] HospitalPhoycshMIJBZGZJVH0841-78-65 05:32:00 Test Item Value Reference Range Interpretation Comments Monocytes # (test code 1.8 See_Comment [Aut omated message] The = Monocytes #) system which generated this result tra nsmitted reference range : <=0.8. The reference r maría was not used to int erpret this result as normal/abnormal . [facility]ATHYROID [id number] 05:32:00 Test Item Value Reference Range Interpretation Comments Ca Ion WB (test code = Ca Ion WB) 1.07 1.05-1.25 [facility] [id number] 05:32:00 Test Item Value Reference Range Interpretation Comments Ca Norm WB (test code = Ca Norm WB) 1.04 1.05-1.25 [facility] [id number] 05:32:00 Test Item Value Reference Range Interpretation Comments U Creatinine (test code = U 184.00 Creatinine) [facility] [id number] 05:32:00 Test Item Value Reference Range Interpretation Comments U Protein (test code = U Protein) 39.4 [facility] [id number] 05:32:00 Test Item Value Reference Range Interpretation Comments U Prot/Creat (test code = U 0.21 1 Prot/Creat) [facility] CenterCulture: [id number] 05:32:00 Test Item Value Reference Range Interpretation Comments Culture: Urine (test code = No Growth Culture: Urine) [facility] [id number] 05:32:00 Test Item Value Reference Range Interpretation Comments Total Protein (test code = Total 6.6 6.4-8.4 Protein) [facility] [id number] 05:32:00 Test Item Value Reference Range Interpretation Comments Albumin Lvl (test code = Albumin Lvl) 3.3 3.5-5.0 [facility]2019-09-10 05:32:00 Test Item Value Reference Range Interpretation Comments ALT (test code = ALT) 28 See_Comment [Auto mated message] The system which ge nerated this result transmit maria c reference range : <=65. The reference range was not used to interpr et this result as karthikeyan l/abnormal. [facility]2019-09-10 05:32:00 Test Item Value Reference Range Interpretation Comments AST (test code = AST) 38 See_Comment [Auto mated message] The system which ge nerated this result transmit maria c reference range : <=37. The reference range was not used to interpr et this result as karthikeyan l/abnormal. [facility]EXPO CommunicationsAMERICAN HEALTHCARE [id number] 05:32:00 Test Item Value Reference Range Interpretation Comments Alk Phos (test code = Alk Phos) 77 39-136 [facility] HospitalEXPO CommunicationsAMERICAN HEALTHCARE [id number] 05:32:00 Test Item Value Reference Range Interpretation Comments Bili Total (test code = Bili Total) 0.5 0.2-1.3 [facility]2019-09-10 05:32:00 Test Item Value Reference Range Interpretation Comments B/C Ratio (test code = B/C Ratio) 24 1 6-25 [facility]2019-09-10 05:32:00 Test Item Value Reference Range Interpretation Comments Globulin (test code = Globulin) 3.3 2.7-4.2 [facility]2019-09-10 05:32:00 Test Item Value Reference Range Interpretation Comments A/G Ratio (test code = A/G Ratio) 1.0 1 0.7-1.6 [facility]2019-09-10 05:32:00 Test Item Value Reference Range Interpretation Comments Procalcitonin Lvl (test 5.00 See_Comment [Au tomated message] code = Procalcitonin Lvl) Th e system which generated this result transmitted ref erence range: <=0.10. The reference range was not used to interpr et this result as normal/abnormal . [facility] CentralOrrobctVLDYNFUYPB1740-17-39 05:32:00 Test Item Value Reference Range Interpretation Comments Segs (test code = Segs) 76.1 45.0-75.0 [facility] CentralDjtgdtrBVNSAYKDPT4014-54-06 05:32:00 Test Item Value Reference Range Interpretation Comments Lymphocytes (test code = Lymphocytes) 12.8 20.0-40.0 [facility] Ce[id number] 05:32:00 Test Item Value Reference Range Interpretation Comments Monocytes (test code = Monocytes) 10.8 2.0-12.0 [facility] CentralLypnvucVXZMVXJZMH4759-31-69 05:32:00 Test Item Value Reference Range Interpretation Comments Basophils (test code = 0.3 See_Comment [Aut omated message] The Basophils) system which ge nerated this result tra nsmitted reference range : <=1.0. The reference r maría was not used to int erpret this result as normal/abnormal . [facility] CentralDnvlktaNLRNDMZIOR9487-98-13 05:32:00 Test Item Value Reference Range Interpretation Comments Neutrophils # (test code = Neutrophils 12.4 1.5-8.1 #) [facility] CentralRiccwjgSKFLBWUMCU6369-85-78 05:32:00 Test Item Value Reference Range Interpretation Comments Lymphocytes # (test code = Lymphocytes 2.1 1.0-5.5 #) [facility] CentralThowgnbYRPFMKFYPH3179-97-23 05:32:00 Test Item Value Reference Range Interpretation Comments Monocytes # (test code 1.8 See_Comment [Aut omated message] The = Monocytes #) system which generated this result tra nsmitted reference range : <=0.8. The reference r maría was not used to int erpret this result as normal/abnormal . [facility]2019-09-10 05:32:00 Test Item Value Reference Range Interpretation Comments Ca Ion WB (test code = Ca Ion WB) 1.07 1.05-1.25 [facility]2019-09-10 05:32:00 Test Item Value Reference Range Interpretation Comments Ca Norm WB (test code = Ca Norm WB) 1.04 1.05-1.25 [facility]2019-09-10 05:32:00 Test Item Value Reference Range Interpretation Comments U Creatinine (test code = U 184.00 Creatinine) [facility]2019-09-10 05:32:00 Test Item Value Reference Range Interpretation Comments U Protein (test code = U Protein) 39.4 [facility]2019-09-10 05:32:00 Test Item Value Reference Range Interpretation Comments U Prot/Creat (test code = U 0.21 1 Prot/Creat) [facility] CenterCulture: [id number] 05:32:00 Test Item Value Reference Range Interpretation Comments Culture: Urine (test code = No Growth Culture: Urine) [facility]2019-09-10 05:32:00 Test Item Value Reference Range Interpretation Comments Total Protein (test code = Total 6.6 6.4-8.4 Protein) [facility]2019-09-10 05:32:00 Test Item Value Reference Range Interpretation Comments Albumin Lvl (test code = Albumin Lvl) 3.3 3.5-5.0 [facility]2019-09-10 05:32:00 Test Item Value Reference Range Interpretation Comments ALT (test code = ALT) 28 See_Comment [Auto mated message] The system which ge nerated this result transmit maria c reference range : <=65. The reference range was not used to interpr et this result as karthikeyan l/abnormal. [facility]2019-09-10 05:32:00 Test Item Value Reference Range Interpretation Comments AST (test code = AST) 38 See_Comment [Auto mated message] The system which ge nerated this result transmit maria c reference range : <=37. The reference range was not used to interpr et this result as karthikeyan l/abnormal. [facility]2019-09-10 05:32:00 Test Item Value Reference Range Interpretation Comments Alk Phos (test code = Alk Phos) 77 39-136 [facility] CenterI Like My Waitress [id number] 05:32:00 Test Item Value Reference Range Interpretation Comments Bili Total (test code = Bili Total) 0.5 0.2-1.3 [facility]2019-09-10 05:32:00 Test Item Value Reference Range Interpretation Comments B/C Ratio (test code = B/C Ratio) 24 1 6-25 [facility]2019-09-10 05:32:00 Test Item Value Reference Range Interpretation Comments Globulin (test code = Globulin) 3.3 2.7-4.2 [facility]2019-09-10 05:32:00 Test Item Value Reference Range Interpretation Comments A/G Ratio (test code = A/G Ratio) 1.0 1 0.7-1.6 [facility] CenterCHEM [id number] 05:32:00 Test Item Value Reference Range Interpretation Comments Procalcitonin Lvl (test 5.00 See_Comment [Au tomated message] code = Procalcitonin Lvl) Th e system which generated this result transmitted ref erence range: <=0.10. The reference range was not used to interpr et this result as normal/abnormal . [facility] CentralSfxptphINQSUASHLX1911-86-03 05:32:00 Test Item Value Reference Range Interpretation Comments Segs (test code = Segs) 76.1 45.0-75.0 [facility] CentralEvdhzwmPSAUBQVSLP8182-99-50 05:32:00 Test Item Value Reference Range Interpretation Comments Lymphocytes (test code = Lymphocytes) 12.8 20.0-40.0 [facility] CentralYogefefVLWMUGZJWG2334-40-04 05:32:00 Test Item Value Reference Range Interpretation Comments Monocytes (test code = Monocytes) 10.8 2.0-12.0 [facility] CentralQxanzthXAAPWOLNYF6675-42-03 05:32:00 Test Item Value Reference Range Interpretation Comments Basophils (test code = 0.3 See_Comment [Aut omated message] The Basophils) system which ge nerated this result tra nsmitted reference range : <=1.0. The reference r maría was not used to int erpret this result as normal/abnormal . [facility] CentralLtahjvvELCPWINIUM6238-19-22 05:32:00 Test Item Value Reference Range Interpretation Comments Neutrophils # (test code = Neutrophils 12.4 1.5-8.1 #) [facility] CentralSuljyrxDURKDBGZBJ1924-18-15 05:32:00 Test Item Value Reference Range Interpretation Comments Lymphocytes # (test code = Lymphocytes 2.1 1.0-5.5 #) [facility] CentralPvjdeaeZOQAGBGULQ3087-91-31 05:32:00 Test Item Value Reference Range Interpretation Comments Monocytes # (test code 1.8 See_Comment [Aut omated message] The = Monocytes #) system which generated this result tra nsmitted reference range : <=0.8. The reference r maría was not used to int erpret this result as normal/abnormal . [facility]ATHY[facility] [id number] 05:32:00 Test Item Value Reference Range Interpretation Comments Ca Ion WB (test code = Ca Ion WB) 1.07 1.05-1.25 [facility] CenterPARATHYROID [id number] 05:32:00 Test Item Value Reference Range Interpretation Comments Ca Norm WB (test code = Ca Norm WB) 1.04 1.05-1.25 [facility] [id number] 05:32:00 Test Item Value Reference Range Interpretation Comments U Creatinine (test code = U 184.00 Creatinine) [facility] [id number] 05:32:00 Test Item Value Reference Range Interpretation Comments U Protein (test code = U Protein) 39.4 [facility] [id number] 05:32:00 Test Item Value Reference Range Interpretation Comments U Prot/Creat (test code = U 0.21 1 Prot/Creat) [facility] CenterCulture: [id number] 05:32:00 Test Item Value Reference Range Interpretation Comments Culture: Urine (test code = No Growth Culture: Urine) [facility] [id number] 05:32:00 Test Item Value Reference Range Interpretation Comments Total Protein (test code = Total 6.6 6.4-8.4 Protein) [facility] [id number] 05:32:00 Test Item Value Reference Range Interpretation Comments Albumin Lvl (test code = Albumin Lvl) 3.3 3.5-5.0 [facility]2019-09-10 05:32:00 Test Item Value Reference Range Interpretation Comments ALT (test code = ALT) 28 See_Comment [Auto mated message] The system which ge nerated this result transmit maria c reference range : <=65. The reference range was not used to interpr et this result as karthikeyan l/abnormal. [facility] [id number] 05:32:00 Test Item Value Reference Range Interpretation Comments AST (test code = AST) 38 See_Comment [Auto mated message] The system which ge nerated this result transmit maria c reference range : <=37. The reference range was not used to interpr et this result as karthikeyan l/abnormal. [facility]2019-09-10 05:32:00 Test Item Value Reference Range Interpretation Comments Alk Phos (test code = Alk Phos) 77 39-136 [facility] [id number] 05:32:00 Test Item Value Reference Range Interpretation Comments Bili Total (test code = Bili Total) 0.5 0.2-1.3 [facility]2019-09-10 05:32:00 Test Item Value Reference Range Interpretation Comments B/C Ratio (test code = B/C Ratio) 24 1 6-25 [facility]2019-09-10 05:32:00 Test Item Value Reference Range Interpretation Comments Globulin (test code = Globulin) 3.3 2.7-4.2 [facility]2019-09-10 05:32:00 Test Item Value Reference Range Interpretation Comments A/G Ratio (test code = A/G Ratio) 1.0 1 0.7-1.6 [facility]2019-09-10 05:32:00 Test Item Value Reference Range Interpretation Comments Procalcitonin Lvl (test 5.00 See_Comment [Au tomated message] code = Procalcitonin Lvl) Th e system which generated this result transmitted ref erence range: <=0.10. The reference range was not used to interpr et this result as normal/abnormal . [facility]tvzebzJQZTDDUMSF5428-51-47 05:32:00 Test Item Value Reference Range Interpretation Comments Segs (test code = Segs) 76.1 45.0-75.0 [facility] CentralPbppwixKTZNTMRMLZ7338-65-86 05:32:00 Test Item Value Reference Range Interpretation Comments Lymphocytes (test code = Lymphocytes) 12.8 20.0-40.0 [facility] CentralXiepnfyGDZXONIZNY3900-67-54 05:32:00 Test Item Value Reference Range Interpretation Comments Monocytes (test code = Monocytes) 10.8 2.0-12.0 [facility] CentralIynsqpsZKWYMBUPVG8164-84-86 05:32:00 Test Item Value Reference Range Interpretation Comments Basophils (test code = 0.3 See_Comment [Aut omated message] The Basophils) system which ge nerated this result tra nsmitted reference range : <=1.0. The reference r maría was not used to int erpret this result as normal/abnormal . [facility] CentralBtzkqbwZNKSAXNVUQ3345-40-20 05:32:00 Test Item Value Reference Range Interpretation Comments Neutrophils # (test code = Neutrophils 12.4 1.5-8.1 #) [facility] CentralTqfyccoVEXOEOAQXW8692-50-04 05:32:00 Test Item Value Reference Range Interpretation Comments Lymphocytes # (test code = Lymphocytes 2.1 1.0-5.5 #) [facility] CenterArqsbnkQLXAYHKMBI4874-23-28 05:32:00 Test Item Value Reference Range Interpretation Comments Monocytes # (test code 1.8 See_Comment [Aut omated message] The = Monocytes #) system which generated this result tra nsmitted reference range : <=0.8. The reference r maría was not used to int erpret this result as normal/abnormal . [id number]:00 Test Item Value Reference Range Interpretation Comments Ca Ion WB (test code = Ca Ion WB) 1.07 1.05-1.25 [facility] [id number] 05:32:00 Test Item Value Reference Range Interpretation Comments Ca Norm WB (test code = Ca Norm WB) 1.04 1.05-1.25 [facility]2019-09-10 05:32:00 Test Item Value Reference Range Interpretation Comments U Creatinine (test code = U 184.00 Creatinine) [facility] [id number] 05:32:00 Test Item Value Reference Range Interpretation Comments U Protein (test code = U Protein) 39.4 [facility]2019-09-10 05:32:00 Test Item Value Reference Range Interpretation Comments U Prot/Creat (test code = U 0.21 1 Prot/Creat) [facility] Center[facility]: [id number] 05:32:00 Test Item Value Reference Range Interpretation Comments Culture: Urine (test code = No Growth Culture: Urine) [facility] [id number] 05:32:00 Test Item Value Reference Range Interpretation Comments Total Protein (test code = Total 6.6 6.4-8.4 Protein) [facility] [id number] 05:32:00 Test Item Value Reference Range Interpretation Comments Albumin Lvl (test code = Albumin Lvl) 3.3 3.5-5.0 [facility] [id number] 05:32:00 Test Item Value Reference Range Interpretation Comments ALT (test code = ALT) 28 See_Comment [Auto mated message] The system which ge nerated this result transmit maria c reference range : <=65. The reference range was not used to interpr et this result as karthikeyan l/abnormal. [facility]2019-09-10 05:32:00 Test Item Value Reference Range Interpretation Comments AST (test code = AST) 38 See_Comment [Auto mated message] The system which ge nerated this result transmit maria c reference range : <=37. The reference range was not used to interpr et this result as karthikeyan l/abnormal. [facility]2019-09-10 05:32:00 Test Item Value Reference Range Interpretation Comments Alk Phos (test code = Alk Phos) 77 39-136 [facility]2019-09-10 05:32:00 Test Item Value Reference Range Interpretation Comments Bili Total (test code = Bili Total) 0.5 0.2-1.3 [facility]2019-09-10 05:32:00 Test Item Value Reference Range Interpretation Comments B/C Ratio (test code = B/C Ratio) 24 1 6-25 [facility]2019-09-10 05:32:00 Test Item Value Reference Range Interpretation Comments Globulin (test code = Globulin) 3.3 2.7-4.2 [facility]2019-09-10 05:32:00 Test Item Value Reference Range Interpretation Comments A/G Ratio (test code = A/G Ratio) 1.0 1 0.7-1.6 [facility]2019-09-10 05:32:00 Test Item Value Reference Range Interpretation Comments Procalcitonin Lvl (test 5.00 See_Comment [Au tomated message] code = Procalcitonin Lvl) Th e system which generated this result transmitted ref erence range: <=0.10. The reference range was not used to interpr et this result as normal/abnormal . [facility] CentralPwpliqrESIIOVPEOD4955-49-07 05:32:00 Test Item Value Reference Range Interpretation Comments Segs (test code = Segs) 76.1 45.0-75.0 [facility] CentralKbsenpwQGTIPCTWJQ0415-69-84 05:32:00 Test Item Value Reference Range Interpretation Comments Lymphocytes (test code = Lymphocytes) 12.8 20.0-40.0 [facility] CentralKbbbywcBMQFKGYNRF2088-71-61 05:32:00 Test Item Value Reference Range Interpretation Comments Monocytes (test code = Monocytes) 10.8 2.0-12.0 [facility]XkqndoxIYJSMKSGYZ7527-69-95 05:32:00 Test Item Value Reference Range Interpretation Comments Basophils (test code = 0.3 See_Comment [Aut omated message] The Basophils) system which ge nerated this result tra nsmitted reference range : <=1.0. The reference r maría was not used to int erpret this result as normal/abnormal . [facility] HospitalJmbxkfzERTKPZGTRJ8078-96-05 05:32:00 Test Item Value Reference Range Interpretation Comments Neutrophils # (test code = Neutrophils 12.4 1.5-8.1 #) [facility] HospitalEgbtrbyUGGRONKSNF6908-88-24 05:32:00 Test Item Value Reference Range Interpretation Comments Lymphocytes # (test code = Lymphocytes 2.1 1.0-5.5 #) [facility] HospitalNkeoockTVUOFVDRIS7092-26-60 05:32:00 Test Item Value Reference Range Interpretation Comments Monocytes # (test code 1.8 See_Comment [Aut omated message] The = Monocytes #) system which generated this result tra nsmitted reference range : <=0.8. The reference r maría was not used to int erpret this result as normal/abnormal . [facility] [id number] 05:32:00 Test Item Value Reference Range Interpretation Comments Ca Ion WB (test code = Ca Ion WB) 1.07 1.05-1.25 [facility] CenterATHY[facility] [id number] 05:32:00 Test Item Value Reference Range Interpretation Comments Ca Norm WB (test code = Ca Norm WB) 1.04 1.05-1.25 [facility] CenterUR[facility] [id number] 05:32:00 Test Item Value Reference Range Interpretation Comments U Creatinine (test code = U 184.00 Creatinine) [facility] [id number] 05:32:00 Test Item Value Reference Range Interpretation Comments U Protein (test code = U Protein) 39.4 [facility] [id number] 05:32:00 Test Item Value Reference Range Interpretation Comments U Prot/Creat (test code = U 0.21 1 Prot/Creat) [facility] CenterCulture: [id number] 05:32:00 Test Item Value Reference Range Interpretation Comments Culture: Urine (test code = No Growth Culture: Urine) [facility]2019-09-10 05:32:00 Test Item Value Reference Range Interpretation Comments Total Protein (test code = Total 6.6 6.4-8.4 Protein) [facility]2019-09-10 05:32:00 Test Item Value Reference Range Interpretation Comments Albumin Lvl (test code = Albumin Lvl) 3.3 3.5-5.0 [facility]2019-09-10 05:32:00 Test Item Value Reference Range Interpretation Comments ALT (test code = ALT) 28 See_Comment [Auto mated message] The system which ge nerated this result transmit maria c reference range : <=65. The reference range was not used to interpr et this result as karthikeyan l/abnormal. [facility]2019-09-10 05:32:00 Test Item Value Reference Range Interpretation Comments AST (test code = AST) 38 See_Comment [Auto mated message] The system which ge nerated this result transmit maria c reference range : <=37. The reference range was not used to interpr et this result as karthikeyan l/abnormal. [facility]2019-09-10 05:32:00 Test Item Value Reference Range Interpretation Comments Alk Phos (test code = Alk Phos) 77 39-136 [facility]2019-09-10 05:32:00 Test Item Value Reference Range Interpretation Comments Bili Total (test code = Bili Total) 0.5 0.2-1.3 [facility]2019-09-10 05:32:00 Test Item Value Reference Range Interpretation Comments B/C Ratio (test code = B/C Ratio) 24 1 6-25 [facility]2019-09-10 05:32:00 Test Item Value Reference Range Interpretation Comments Globulin (test code = Globulin) 3.3 2.7-4.2 [facility]2019-09-10 05:32:00 Test Item Value Reference Range Interpretation Comments A/G Ratio (test code = A/G Ratio) 1.0 1 0.7-1.6 [facility]2019-09-10 05:32:00 Test Item Value Reference Range Interpretation Comments Procalcitonin Lvl (test 5.00 See_Comment [Au tomated message] code = Procalcitonin Lvl) Th e system which generated this result transmitted ref erence range: <=0.10. The reference range was not used to interpr et this result as normal/abnormal . [facility] CentralNjudrvsSXTNUCKOEQ5594-72-71 05:32:00 Test Item Value Reference Range Interpretation Comments Segs (test code = Segs) 76.1 45.0-75.0 [facility] CentralQpcmgyoHWISIENIKE5042-51-60 05:32:00 Test Item Value Reference Range Interpretation Comments Lymphocytes (test code = Lymphocytes) 12.8 20.0-40.0 [facility] CentralPvdgtoqUREQEVEQGH0049-29-06 05:32:00 Test Item Value Reference Range Interpretation Comments Monocytes (test code = Monocytes) 10.8 2.0-12.0 [facility] CentralJwdccyxESDFOIUABM4506-92-60 05:32:00 Test Item Value Reference Range Interpretation Comments Basophils (test code = 0.3 See_Comment [Aut omated message] The Basophils) system which ge nerated this result tra nsmitted reference range : <=1.0. The reference r maría was not used to int erpret this result as normal/abnormal . [facility] CentralRyqltflWVCXYKWYIS5789-31-88 05:32:00 Test Item Value Reference Range Interpretation Comments Neutrophils # (test code = Neutrophils 12.4 1.5-8.1 #) [facility] CentralIivcdvlPFRLTQUCZY7531-26-47 05:32:00 Test Item Value Reference Range Interpretation Comments Lymphocytes # (test code = Lymphocytes 2.1 1.0-5.5 #) [facility] CentralAotokknUPEXKSDHFA9171-90-69 05:32:00 Test Item Value Reference Range Interpretation Comments Monocytes # (test code 1.8 See_Comment [Aut omated message] The = Monocytes #) system which generated this result tra nsmitted reference range : <=0.8. The reference r maría was not used to int erpret this result as normal/abnormal . [facility]ATH[facility] [id number] 05:32:00 Test Item Value Reference Range Interpretation Comments Ca Ion WB (test code = Ca Ion WB) 1.07 1.05-1.25 [facility]ATHY[facility] [id number] 05:32:00 Test Item Value Reference Range Interpretation Comments Ca Norm WB (test code = Ca Norm WB) 1.04 1.05-1.25 [facility] [id number] 05:32:00 Test Item Value Reference Range Interpretation Comments U Creatinine (test code = U 184.00 Creatinine) [facility] [id number] 05:32:00 Test Item Value Reference Range Interpretation Comments U Protein (test code = U Protein) 39.4 [facility] [id number] 05:32:00 Test Item Value Reference Range Interpretation Comments U Prot/Creat (test code = U 0.21 1 Prot/Creat) [facility] CenterCulture: [id number] 05:32:00 Test Item Value Reference Range Interpretation Comments Culture: Urine (test code = No Growth Culture: Urine) [facility] [id number] 05:32:00 Test Item Value Reference Range Interpretation Comments Total Protein (test code = Total 6.6 6.4-8.4 Protein) [facility] [id number] 05:32:00 Test Item Value Reference Range Interpretation Comments Albumin Lvl (test code = Albumin Lvl) 3.3 3.5-5.0 [facility]2019-09-10 05:32:00 Test Item Value Reference Range Interpretation Comments ALT (test code = ALT) 28 See_Comment [Auto mated message] The system which ge nerated this result transmit maria c reference range : <=65. The reference range was not used to interpr et this result as karthikeyan l/abnormal. [facility]2019-09-10 05:32:00 Test Item Value Reference Range Interpretation Comments AST (test code = AST) 38 See_Comment [Auto mated message] The system which ge nerated this result transmit maria c reference range : <=37. The reference range was not used to interpr et this result as karthikeyan l/abnormal. [facility] CenterI Like My Waitress [id number] 05:32:00 Test Item Value Reference Range Interpretation Comments Alk Phos (test code = Alk Phos) 77 39-136 [facility] [id number] 05:32:00 Test Item Value Reference Range Interpretation Comments Bili Total (test code = Bili Total) 0.5 0.2-1.3 [facility] [id number] 05:32:00 Test Item Value Reference Range Interpretation Comments B/C Ratio (test code = B/C Ratio) 24 1 6-25 [facility]2019-09-10 05:32:00 Test Item Value Reference Range Interpretation Comments Globulin (test code = Globulin) 3.3 2.7-4.2 [facility]2019-09-10 05:32:00 Test Item Value Reference Range Interpretation Comments A/G Ratio (test code = A/G Ratio) 1.0 1 0.7-1.6 [facility]2019-09-10 05:32:00 Test Item Value Reference Range Interpretation Comments Procalcitonin Lvl (test 5.00 See_Comment [Au tomated message] code = Procalcitonin Lvl) Th e system which generated this result transmitted ref erence range: <=0.10. The reference range was not used to interpr et this result as normal/abnormal . [facility] CentralXrgjlsyDZBSYBDLFF5370-42-87 05:32:00 Test Item Value Reference Range Interpretation Comments Segs (test code = Segs) 76.1 45.0-75.0 [facility] CentralRzloltiCQFDHMCWSX8939-64-07 05:32:00 Test Item Value Reference Range Interpretation Comments Lymphocytes (test code = Lymphocytes) 12.8 20.0-40.0 [facility] CentralYknwahjFCLMKQYZQH1745-41-83 05:32:00 Test Item Value Reference Range Interpretation Comments Monocytes (test code = Monocytes) 10.8 2.0-12.0 [facility] CentralDkpriymAGZYWKZEZN0883-22-38 05:32:00 Test Item Value Reference Range Interpretation Comments Basophils (test code = 0.3 See_Comment [Aut omated message] The Basophils) system which ge nerated this result tra nsmitted reference range : <=1.0. The reference r maría was not used to int erpret this result as normal/abnormal . [facility] CentralSanybpwZROGNPSLAX0346-15-41 05:32:00 Test Item Value Reference Range Interpretation Comments Neutrophils # (test code = Neutrophils 12.4 1.5-8.1 #) [facility] CentralBmvtiiuMYORJOKNKL4190-64-59 05:32:00 Test Item Value Reference Range Interpretation Comments Lymphocytes # (test code = Lymphocytes 2.1 1.0-5.5 #) [facility] CentralVltnxjqHUOLVLTERO5746-98-35 05:32:00 Test Item Value Reference Range Interpretation Comments Monocytes # (test code 1.8 See_Comment [Aut omated message] The = Monocytes #) system which generated this result tra nsmitted reference range : <=0.8. The reference r maría was not used to int erpret this result as normal/abnormal . [facility]annPARATHYROID [id number] 05:32:00 Test Item Value Reference Range Interpretation Comments Ca Ion WB (test code = Ca Ion WB) 1.07 1.05-1.25 [facility]PAR[facility] [id number] 05:32:00 Test Item Value Reference Range Interpretation Comments Ca Norm WB (test code = Ca Norm WB) 1.04 1.05-1.25 [facility] [id number] 05:32:00 Test Item Value Reference Range Interpretation Comments U Creatinine (test code = U 184.00 Creatinine) [facility] [id number] 05:32:00 Test Item Value Reference Range Interpretation Comments U Protein (test code = U Protein) 39.4 [facility] [id number] 05:32:00 Test Item Value Reference Range Interpretation Comments U Prot/Creat (test code = U 0.21 1 Prot/Creat) [facility] [id number] 05:32:00 Test Item Value Reference Range Interpretation Comments Culture: Urine (test code = No Growth Culture: Urine) [facility] AND [id number] 20:46:43 Test Item Value Reference Range Interpretation Comments UA Color (test code = Yellow (05/26/19 3:46 PM) UA Color) [facility] AND [id number] 20:46:43 Test Item Value Reference Range Interpretation Comments UA Turbidity (test code Slight *ABN*(05/26/19 = UA Turbidity) 3:46 PM) [facility] AND [id number] 20:46:43 Test Item Value Reference Range Interpretation Comments UA Spec Grav (test code = UA Spec 1.032 1 Grav) [facility] [id number] 20:46:43 Test Item Value Reference Range Interpretation Comments UA pH (test code = UA pH) 5.0 1 5.0-8.0 [facility] [id number] 20:46:43 Test Item Value Reference Range Interpretation Comments UA Protein (test code = UA Protein) 100 mg/dL [facility] AND [id number] 20:46:43 Test Item Value Reference Range Interpretation Comments UA Glucose (test code = UA Glucose) 50mg/dl [facility] AND [id number] 20:46:43 Test Item Value Reference Range Interpretation Comments UA Ketones (test code = Trace *ABN*(05/26/19 UA Ketones) 3:46 PM) [facility] AND [id number] 20:46:43 Test Item Value Reference Range Interpretation Comments UA Bili (test code = Negative *NA*(05/26/19 UA Bili) 3:46 PM) [facility] AND [id number] 20:46:43 Test Item Value Reference Range Interpretation Comments UA Blood (test code = Small *ABN*(05/26/19 UA Blood) 3:46 PM) [facility] AND [id number] 20:46:43 Test Item Value Reference Range Interpretation Comments UA Urobilinogen (test code = UA 2.0 0.1-1.0 Urobilinogen) [facility] AND [id number] 20:46:43 Test Item Value Reference Range Interpretation Comments UA Nitrite (test code Negative (05/26/19 3:46 = UA Nitrite) PM) [facility] AND [id number] 20:46:43 Test Item Value Reference Range Interpretation Comments UA Leuk Est (test Negative (05/26/19 3:46 code = UA Leuk Est) PM) [facility] AND [id number] 20:46:43 Test Item Value Reference Range Interpretation Comments UA Sq Epi (test code = UA Sq Occasional /LPF Epi) [facility] AND [id number] 20:46:43 Test Item Value Reference Range Interpretation Comments UA WBC (test code = 5 See_Comment [Automa maria c message] The UA WBC) system which ge nerated this result transmit maria c reference range : <=5. The reference range was not used to interpr et this result as karthikeyan l/abnormal. [facility] AND [id number] 20:46:43 Test Item Value Reference Range Interpretation Comments UA RBC (test code = 6 See_Comment [Automa maria c message] The UA RBC) system which ge nerated this result transmit maria c reference range : <=2. The reference range was not used to interpr et this result as karthikeyan l/abnormal. [facility] AND [id number] 20:46:43 Test Item Value Reference Range Interpretation Comments UA Mucus (test code = UA Mucus) Few /LPF [facility] AND [id number] 20:46:43 Test Item Value Reference Range Interpretation Comments UA Amorph Lamar (test code = Occasional /HPF UA Amorph Lamar) [facility] AND [id number] 20:46:43 Test Item Value Reference Range Interpretation Comments UA Hyal Cast (test 5 See_Comment [Automat ed message] The code = UA Hyal Cast) system which generated this result transmit maria c reference range : <=2. The reference range was not used to interpr et this result as karthikeyan l/abnormal. [facility] AND [id number] 20:46:43 Test Item Value Reference Range Interpretation Comments UA WBC Cast (test code = UA WBC Cast) 1 [facility] AND [id number] 20:46:43 Test Item Value Reference Range Interpretation Comments UA Color (test code = Yellow (05/26/19 3:46 PM) UA Color) [facility] AND [id number] 20:46:43 Test Item Value Reference Range Interpretation Comments UA Turbidity (test code Slight *ABN*(05/26/19 = UA Turbidity) 3:46 PM) [facility] AND [id number] 20:46:43 Test Item Value Reference Range Interpretation Comments UA Spec Grav (test code = UA Spec 1.032 1 Grav) [facility] AND [id number] 20:46:43 Test Item Value Reference Range Interpretation Comments UA pH (test code = UA pH) 5.0 1 5.0-8.0 [facility] AND [id number] 20:46:43 Test Item Value Reference Range Interpretation Comments UA Protein (test code = UA Protein) 100 mg/dL [facility] AND [id number] 20:46:43 Test Item Value Reference Range Interpretation Comments UA Glucose (test code = UA Glucose) 50mg/dl [facility] AND [id number] 20:46:43 Test Item Value Reference Range Interpretation Comments UA Ketones (test code = Trace *ABN*(05/26/19 UA Ketones) 3:46 PM) [facility] AND [id number] 20:46:43 Test Item Value Reference Range Interpretation Comments UA Bili (test code = Negative *NA*(05/26/19 UA Bili) 3:46 PM) [facility] AND [id number] 20:46:43 Test Item Value Reference Range Interpretation Comments UA Blood (test code = Small *ABN*(05/26/19 UA Blood) 3:46 PM) [facility] AND [id number] 20:46:43 Test Item Value Reference Range Interpretation Comments UA Urobilinogen (test code = UA 2.0 0.1-1.0 Urobilinogen) [facility] AND [id number] 20:46:43 Test Item Value Reference Range Interpretation Comments UA Nitrite (test code Negative (05/26/19 3:46 = UA Nitrite) PM) [facility] AND [id number] 20:46:43 Test Item Value Reference Range Interpretation Comments UA Leuk Est (test Negative (05/26/19 3:46 code = UA Leuk Est) PM) [facility] AND [id number] 20:46:43 Test Item Value Reference Range Interpretation Comments UA Sq Epi (test code = UA Sq Occasional /LPF Epi) [facility] AND [id number] 20:46:43 Test Item Value Reference Range Interpretation Comments UA WBC (test code = 5 See_Comment [Automa maria c message] The UA WBC) system which ge nerated this result transmit maria c reference range : <=5. The reference range was not used to interpr et this result as karthikeyan l/abnormal. [facility] AND [id number] 20:46:43 Test Item Value Reference Range Interpretation Comments UA RBC (test code = 6 See_Comment [Automa maria c message] The UA RBC) system which ge nerated this result transmit maria c reference range : <=2. The reference range was not used to interpr et this result as karthikeyan l/abnormal. [facility] AND [id number] 20:46:43 Test Item Value Reference Range Interpretation Comments UA Mucus (test code = UA Mucus) Few /LPF [facility] AND [id number] 20:46:43 Test Item Value Reference Range Interpretation Comments UA Amorph Lamar (test code = Occasional /HPF UA Amorph Lamar) [facility] AND [id number] 20:46:43 Test Item Value Reference Range Interpretation Comments UA Hyal Cast (test 5 See_Comment [Automat ed message] The code = UA Hyal Cast) system which generated this result transmit maria c reference range : <=2. The reference range was not used to interpr et this result as karthikeyan l/abnormal. [facility] AND [id number] 20:46:43 Test Item Value Reference Range Interpretation Comments UA WBC Cast (test code = UA WBC Cast) 1 [facility] AND [id number] 20:46:43 Test Item Value Reference Range Interpretation Comments UA Color (test code = Yellow (05/26/19 3:46 PM) UA Color) [facility] AND [id number] 20:46:43 Test Item Value Reference Range Interpretation Comments UA Turbidity (test code Slight *ABN*(05/26/19 = UA Turbidity) 3:46 PM) [facility] AND [id number] 20:46:43 Test Item Value Reference Range Interpretation Comments UA Spec Grav (test code = UA Spec 1.032 1 Grav) [facility] AND [id number] 20:46:43 Test Item Value Reference Range Interpretation Comments UA pH (test code = UA pH) 5.0 1 5.0-8.0 [facility] AND [id number] 20:46:43 Test Item Value Reference Range Interpretation Comments UA Protein (test code = UA Protein) 100 mg/dL [facility] AND [id number] 20:46:43 Test Item Value Reference Range Interpretation Comments UA Glucose (test code = UA Glucose) 50mg/dl [facility] AND [id number] 20:46:43 Test Item Value Reference Range Interpretation Comments UA Ketones (test code = Trace *ABN*(05/26/19 UA Ketones) 3:46 PM) [facility] AND [id number] 20:46:43 Test Item Value Reference Range Interpretation Comments UA Bili (test code = Negative *NA*(05/26/19 UA Bili) 3:46 PM) [facility] AND [id number] 20:46:43 Test Item Value Reference Range Interpretation Comments UA Blood (test code = Small *ABN*(05/26/19 UA Blood) 3:46 PM) [facility] AND [id number] 20:46:43 Test Item Value Reference Range Interpretation Comments UA Urobilinogen (test code = UA 2.0 0.1-1.0 Urobilinogen) [facility] AND [id number] 20:46:43 Test Item Value Reference Range Interpretation Comments UA Nitrite (test code Negative (05/26/19 3:46 = UA Nitrite) PM) [facility] AND [id number] 20:46:43 Test Item Value Reference Range Interpretation Comments UA Leuk Est (test Negative (05/26/19 3:46 code = UA Leuk Est) PM) [facility] AND [id number] 20:46:43 Test Item Value Reference Range Interpretation Comments UA Sq Epi (test code = UA Sq Occasional /LPF Epi) [facility] AND [id number] 20:46:43 Test Item Value Reference Range Interpretation Comments UA WBC (test code = 5 See_Comment [Automa maria c message] The UA WBC) system which ge nerated this result transmit maria c reference range : <=5. The reference range was not used to interpr et this result as karthikeyan l/abnormal. [facility] AND [id number] 20:46:43 Test Item Value Reference Range Interpretation Comments UA RBC (test code = 6 See_Comment [Automa maria c message] The UA RBC) system which ge nerated this result transmit maria c reference range : <=2. The reference range was not used to interpr et this result as karthikeyan l/abnormal. [facility] AND [id number] 20:46:43 Test Item Value Reference Range Interpretation Comments UA Mucus (test code = UA Mucus) Few /LPF [facility] AND [id number] 20:46:43 Test Item Value Reference Range Interpretation Comments UA Amorph Lamar (test code = Occasional /HPF UA Amorph Lamar) [facility] AND [id number] 20:46:43 Test Item Value Reference Range Interpretation Comments UA Hyal Cast (test 5 See_Comment [Automat ed message] The code = UA Hyal Cast) system which generated this result transmit maria c reference range : <=2. The reference range was not used to interpr et this result as karthikeyan l/abnormal. [facility] AND [id number] 20:46:43 Test Item Value Reference Range Interpretation Comments UA WBC Cast (test code = UA WBC Cast) 1 [facility] AND [id number] 20:46:43 Test Item Value Reference Range Interpretation Comments UA Color (test code = Yellow (05/26/19 3:46 PM) UA Color) [facility] AND [id number] 20:46:43 Test Item Value Reference Range Interpretation Comments UA Turbidity (test code Slight *ABN*(05/26/19 = UA Turbidity) 3:46 PM) [facility] AND [id number] 20:46:43 Test Item Value Reference Range Interpretation Comments UA Spec Grav (test code = UA Spec 1.032 1 Grav) [facility] AND [id number] 20:46:43 Test Item Value Reference Range Interpretation Comments UA pH (test code = UA pH) 5.0 1 5.0-8.0 [facility] AND [id number] 20:46:43 Test Item Value Reference Range Interpretation Comments UA Protein (test code = UA Protein) 100 mg/dL [facility] AND [id number] 20:46:43 Test Item Value Reference Range Interpretation Comments UA Glucose (test code = UA Glucose) 50mg/dl [facility] AND [id number] 20:46:43 Test Item Value Reference Range Interpretation Comments UA Ketones (test code = Trace *ABN*(05/26/19 UA Ketones) 3:46 PM) [facility] AND [id number] 20:46:43 Test Item Value Reference Range Interpretation Comments UA Bili (test code = Negative *NA*(05/26/19 UA Bili) 3:46 PM) [facility] AND [id number] 20:46:43 Test Item Value Reference Range Interpretation Comments UA Blood (test code = Small *ABN*(05/26/19 UA Blood) 3:46 PM) [facility] AND [id number] 20:46:43 Test Item Value Reference Range Interpretation Comments UA Urobilinogen (test code = UA 2.0 0.1-1.0 Urobilinogen) [facility] AND [id number] 20:46:43 Test Item Value Reference Range Interpretation Comments UA Nitrite (test code Negative (05/26/19 3:46 = UA Nitrite) PM) [facility] AND [id number] 20:46:43 Test Item Value Reference Range Interpretation Comments UA Leuk Est (test Negative (05/26/19 3:46 code = UA Leuk Est) PM) [facility] AND [id number] 20:46:43 Test Item Value Reference Range Interpretation Comments UA Sq Epi (test code = UA Sq Occasional /LPF Epi) [facility] AND [id number] 20:46:43 Test Item Value Reference Range Interpretation Comments UA WBC (test code = 5 See_Comment [Automa maria c message] The UA WBC) system which ge nerated this result transmit maria c reference range : <=5. The reference range was not used to interpr et this result as karthikeyan l/abnormal. [facility] AND [id number] 20:46:43 Test Item Value Reference Range Interpretation Comments UA RBC (test code = 6 See_Comment [Automa maria c message] The UA RBC) system which ge nerated this result transmit maria c reference range : <=2. The reference range was not used to interpr et this result as karthikeyan l/abnormal. [facility] AND [id number] 20:46:43 Test Item Value Reference Range Interpretation Comments UA Mucus (test code = UA Mucus) Few /LPF [facility] AND [id number] 20:46:43 Test Item Value Reference Range Interpretation Comments UA Amorph Lamar (test code = Occasional /HPF UA Amorph Lamar) [facility] AND [id number] 20:46:43 Test Item Value Reference Range Interpretation Comments UA Hyal Cast (test 5 See_Comment [Automat ed message] The code = UA Hyal Cast) system which generated this result transmit maria c reference range : <=2. The reference range was not used to interpr et this result as karthikeyan l/abnormal. [facility] AND [id number] 20:46:43 Test Item Value Reference Range Interpretation Comments UA WBC Cast (test code = UA WBC Cast) 1 [facility] AND [id number] 20:46:43 Test Item Value Reference Range Interpretation Comments UA Color (test code = Yellow (05/26/19 3:46 PM) UA Color) [facility] AND [id number] 20:46:43 Test Item Value Reference Range Interpretation Comments UA Turbidity (test code Slight *ABN*(05/26/19 = UA Turbidity) 3:46 PM) [facility] AND [id number] 20:46:43 Test Item Value Reference Range Interpretation Comments UA Spec Grav (test code = UA Spec 1.032 1 Grav) [facility] AND [id number] 20:46:43 Test Item Value Reference Range Interpretation Comments UA pH (test code = UA pH) 5.0 1 5.0-8.0 [facility] AND [id number] 20:46:43 Test Item Value Reference Range Interpretation Comments UA Protein (test code = UA Protein) 100 mg/dL [facility] AND [id number] 20:46:43 Test Item Value Reference Range Interpretation Comments UA Glucose (test code = UA Glucose) 50mg/dl [facility] AND [id number] 20:46:43 Test Item Value Reference Range Interpretation Comments UA Ketones (test code = Trace *ABN*(05/26/19 UA Ketones) 3:46 PM) [facility] AND [id number] 20:46:43 Test Item Value Reference Range Interpretation Comments UA Bili (test code = Negative *NA*(05/26/19 UA Bili) 3:46 PM) [facility] AND [id number] 20:46:43 Test Item Value Reference Range Interpretation Comments UA Blood (test code = Small *ABN*(05/26/19 UA Blood) 3:46 PM) [facility] AND [id number] 20:46:43 Test Item Value Reference Range Interpretation Comments UA Urobilinogen (test code = UA 2.0 0.1-1.0 Urobilinogen) [facility] AND [id number] 20:46:43 Test Item Value Reference Range Interpretation Comments UA Nitrite (test code Negative (05/26/19 3:46 = UA Nitrite) PM) [facility] AND [id number] 20:46:43 Test Item Value Reference Range Interpretation Comments UA Leuk Est (test Negative (05/26/19 3:46 code = UA Leuk Est) PM) [facility] [id number] 20:46:43 Test Item Value Reference Range Interpretation Comments UA Sq Epi (test code = UA Sq Occasional /LPF Epi) [facility] [id number] 20:46:43 Test Item Value Reference Range Interpretation Comments UA WBC (test code = 5 See_Comment [Automa maria c message] The UA WBC) system which ge nerated this result transmit maria c reference range : <=5. The reference range was not used to interpr et this result as karthikeyan l/abnormal. [facility] [id number] 20:46:43 Test Item Value Reference Range Interpretation Comments UA RBC (test code = 6 See_Comment [Automa maria c message] The UA RBC) system which ge nerated this result transmit maria c reference range : <=2. The reference range was not used to interpr et this result as karthikeyan l/abnormal. [facility] [id number] 20:46:43 Test Item Value Reference Range Interpretation Comments UA Mucus (test code = UA Mucus) Few /LPF [facility] AND [id number] 20:46:43 Test Item Value Reference Range Interpretation Comments UA Amorph Lamar (test code = Occasional /HPF UA Amorph Lamar) [facility] AND [id number] 20:46:43 Test Item Value Reference Range Interpretation Comments UA Hyal Cast (test 5 See_Comment [Automat ed message] The code = UA Hyal Cast) system which generated this result transmit maria c reference range : <=2. The reference range was not used to interpr et this result as karthikeyan l/abnormal. [facility] [id number] 20:46:43 Test Item Value Reference Range Interpretation Comments UA WBC Cast (test code = UA WBC Cast) 1 [facility] AND [id number] 20:46:43 Test Item Value Reference Range Interpretation Comments UA Color (test code = Yellow (05/26/19 3:46 PM) UA Color) [facility] AND [id number] 20:46:43 Test Item Value Reference Range Interpretation Comments UA Turbidity (test code Slight *ABN*(05/26/19 = UA Turbidity) 3:46 PM) [facility] AND [id number] 20:46:43 Test Item Value Reference Range Interpretation Comments UA Spec Grav (test code = UA Spec 1.032 1 Grav) [facility] AND [id number] 20:46:43 Test Item Value Reference Range Interpretation Comments UA pH (test code = UA pH) 5.0 1 5.0-8.0 [facility] AND [id number] 20:46:43 Test Item Value Reference Range Interpretation Comments UA Protein (test code = UA Protein) 100 mg/dL [facility] AND [id number] 20:46:43 Test Item Value Reference Range Interpretation Comments UA Glucose (test code = UA Glucose) 50mg/dl [facility] AND [id number] 20:46:43 Test Item Value Reference Range Interpretation Comments UA Ketones (test code = Trace *ABN*(05/26/19 UA Ketones) 3:46 PM) [facility] AND [id number] 20:46:43 Test Item Value Reference Range Interpretation Comments UA Bili (test code = Negative *NA*(05/26/19 UA Bili) 3:46 PM) [facility] AND [id number] 20:46:43 Test Item Value Reference Range Interpretation Comments UA Blood (test code = Small *ABN*(05/26/19 UA Blood) 3:46 PM) [facility] AND [id number] 20:46:43 Test Item Value Reference Range Interpretation Comments UA Urobilinogen (test code = UA 2.0 0.1-1.0 Urobilinogen) [facility] AND [id number] 20:46:43 Test Item Value Reference Range Interpretation Comments UA Nitrite (test code Negative (05/26/19 3:46 = UA Nitrite) PM) [facility] AND [id number] 20:46:43 Test Item Value Reference Range Interpretation Comments UA Leuk Est (test Negative (05/26/19 3:46 code = UA Leuk Est) PM) [facility] AND [id number] 20:46:43 Test Item Value Reference Range Interpretation Comments UA Sq Epi (test code = UA Sq Occasional /LPF Epi) [facility] AND [id number] 20:46:43 Test Item Value Reference Range Interpretation Comments UA WBC (test code = 5 See_Comment [Automa maria c message] The UA WBC) system which ge nerated this result transmit maria c reference range : <=5. The reference range was not used to interpr et this result as karthikeyan l/abnormal. [facility] AND [id number] 20:46:43 Test Item Value Reference Range Interpretation Comments UA RBC (test code = 6 See_Comment [Automa maria c message] The UA RBC) system which ge nerated this result transmit maria c reference range : <=2. The reference range was not used to interpr et this result as karthikeyan l/abnormal. [facility] AND [id number] 20:46:43 Test Item Value Reference Range Interpretation Comments UA Mucus (test code = UA Mucus) Few /LPF [facility] AND [id number] 20:46:43 Test Item Value Reference Range Interpretation Comments UA Amorph Lamar (test code = Occasional /HPF UA Amorph Lamar) [facility] AND [id number] 20:46:43 Test Item Value Reference Range Interpretation Comments UA Hyal Cast (test 5 See_Comment [Automat ed message] The code = UA Hyal Cast) system which generated this result transmit maria c reference range : <=2. The reference range was not used to interpr et this result as karthikeyan l/abnormal. [facility] AND [id number] 20:46:43 Test Item Value Reference Range Interpretation Comments UA WBC Cast (test code = UA WBC Cast) 1 [facility] AND [id number] 20:46:43 Test Item Value Reference Range Interpretation Comments UA Color (test code = Yellow (05/26/19 3:46 PM) UA Color) [facility] AND [id number] 20:46:43 Test Item Value Reference Range Interpretation Comments UA Turbidity (test code Slight *ABN*(05/26/19 = UA Turbidity) 3:46 PM) [facility] AND [id number] 20:46:43 Test Item Value Reference Range Interpretation Comments UA Spec Grav (test code = UA Spec 1.032 1 Grav) [facility] AND [id number] 20:46:43 Test Item Value Reference Range Interpretation Comments UA pH (test code = UA pH) 5.0 1 5.0-8.0 [facility] AND [id number] 20:46:43 Test Item Value Reference Range Interpretation Comments UA Protein (test code = UA Protein) 100 mg/dL [facility] AND [id number] 20:46:43 Test Item Value Reference Range Interpretation Comments UA Glucose (test code = UA Glucose) 50mg/dl [facility] AND [id number] 20:46:43 Test Item Value Reference Range Interpretation Comments UA Ketones (test code = Trace *ABN*(05/26/19 UA Ketones) 3:46 PM) [facility] AND [id number] 20:46:43 Test Item Value Reference Range Interpretation Comments UA Bili (test code = Negative *NA*(05/26/19 UA Bili) 3:46 PM) [facility] AND [id number] 20:46:43 Test Item Value Reference Range Interpretation Comments UA Blood (test code = Small *ABN*(05/26/19 UA Blood) 3:46 PM) [facility] AND [id number] 20:46:43 Test Item Value Reference Range Interpretation Comments UA Urobilinogen (test code = UA 2.0 0.1-1.0 Urobilinogen) [facility] AND [id number] 20:46:43 Test Item Value Reference Range Interpretation Comments UA Nitrite (test code Negative (05/26/19 3:46 = UA Nitrite) PM) [facility] AND [id number] 20:46:43 Test Item Value Reference Range Interpretation Comments UA Leuk Est (test Negative (05/26/19 3:46 code = UA Leuk Est) PM) [facility] AND [id number] 20:46:43 Test Item Value Reference Range Interpretation Comments UA Sq Epi (test code = UA Sq Occasional /LPF Epi) [facility] AND [id number] 20:46:43 Test Item Value Reference Range Interpretation Comments UA WBC (test code = 5 See_Comment [Automa maria c message] The UA WBC) system which ge nerated this result transmit maria c reference range : <=5. The reference range was not used to interpr et this result as karthikeyan l/abnormal. [facility] AND [id number] 20:46:43 Test Item Value Reference Range Interpretation Comments UA RBC (test code = 6 See_Comment [Automa maria c message] The UA RBC) system which ge nerated this result transmit maria c reference range : <=2. The reference range was not used to interpr et this result as karthikeyan l/abnormal. [facility] AND [id number] 20:46:43 Test Item Value Reference Range Interpretation Comments UA Mucus (test code = UA Mucus) Few /LPF [facility] [id number] 20:46:43 Test Item Value Reference Range Interpretation Comments UA Amorph Lamar (test code = Occasional /HPF UA Amorph Lamar) [facility] AND [id number] 20:46:43 Test Item Value Reference Range Interpretation Comments UA Hyal Cast (test 5 See_Comment [Automat ed message] The code = UA Hyal Cast) system which generated this result transmit maria c reference range : <=2. The reference range was not used to interpr et this result as karthikeyan l/abnormal. [facility] AND [id number] 20:46:43 Test Item Value Reference Range Interpretation Comments UA WBC Cast (test code = UA WBC Cast) 1 [facility] AND [id number] 20:46:43 Test Item Value Reference Range Interpretation Comments UA Color (test code = Yellow (05/26/19 3:46 PM) UA Color) [facility] AND [id number] 20:46:43 Test Item Value Reference Range Interpretation Comments UA Turbidity (test code Slight *ABN*(05/26/19 = UA Turbidity) 3:46 PM) [facility] AND [id number] 20:46:43 Test Item Value Reference Range Interpretation Comments UA Spec Grav (test code = UA Spec 1.032 1 Grav) [facility] AND [id number] 20:46:43 Test Item Value Reference Range Interpretation Comments UA pH (test code = UA pH) 5.0 1 5.0-8.0 [facility] AND [id number] 20:46:43 Test Item Value Reference Range Interpretation Comments UA Protein (test code = UA Protein) 100 mg/dL [facility] AND [id number] 20:46:43 Test Item Value Reference Range Interpretation Comments UA Glucose (test code = UA Glucose) 50mg/dl [facility] AND [id number] 20:46:43 Test Item Value Reference Range Interpretation Comments UA Ketones (test code = Trace *ABN*(05/26/19 UA Ketones) 3:46 PM) [facility] AND [id number] 20:46:43 Test Item Value Reference Range Interpretation Comments UA Bili (test code = Negative *NA*(05/26/19 UA Bili) 3:46 PM) [facility] AND [id number] 20:46:43 Test Item Value Reference Range Interpretation Comments UA Blood (test code = Small *ABN*(05/26/19 UA Blood) 3:46 PM) [facility] AND [id number] 20:46:43 Test Item Value Reference Range Interpretation Comments UA Urobilinogen (test code = UA 2.0 0.1-1.0 Urobilinogen) [facility] AND [id number] 20:46:43 Test Item Value Reference Range Interpretation Comments UA Nitrite (test code Negative (05/26/19 3:46 = UA Nitrite) PM) [facility] AND [id number] 20:46:43 Test Item Value Reference Range Interpretation Comments UA Leuk Est (test Negative (05/26/19 3:46 code = UA Leuk Est) PM) [facility] AND [id number] 20:46:43 Test Item Value Reference Range Interpretation Comments UA Sq Epi (test code = UA Sq Occasional /LPF Epi) [facility] AND [id number] 20:46:43 Test Item Value Reference Range Interpretation Comments UA WBC (test code = 5 See_Comment [Automa maria c message] The UA WBC) system which ge nerated this result transmit maria c reference range : <=5. The reference range was not used to interpr et this result as karthikeyan l/abnormal. [facility] AND [id number] 20:46:43 Test Item Value Reference Range Interpretation Comments UA RBC (test code = 6 See_Comment [Automa maria c message] The UA RBC) system which ge nerated this result transmit maria c reference range : <=2. The reference range was not used to interpr et this result as karthikeyan l/abnormal. [facility] [id number] 20:46:43 Test Item Value Reference Range Interpretation Comments UA Mucus (test code = UA Mucus) Few /LPF [facility] [id number] 20:46:43 Test Item Value Reference Range Interpretation Comments UA Amorph Lamar (test code = Occasional /HPF UA Amorph Lamar) [facility] AND [id number] 20:46:43 Test Item Value Reference Range Interpretation Comments UA Hyal Cast (test 5 See_Comment [Automat ed message] The code = UA Hyal Cast) system which generated this result transmit maria c reference range : <=2. The reference range was not used to interpr et this result as karthikeyan l/abnormal. [facility] [id number] 20:46:43 Test Item Value Reference Range Interpretation Comments UA WBC Cast (test code = UA WBC Cast) [facility] [id number] 20:20:00 Test Item Value Reference Range Interpretation Comments U Amph Scr (test code Negative *NA*(05/26/19 = U Amph Scr) 3:20 PM) [facility] [id number] 20:20:00 Test Item Value Reference Range Interpretation Comments U Tereza Scr (test code Negative *NA*(05/26/19 = U Tereza Scr) 3:20 PM) [facility] [id number] 20:20:00 Test Item Value Reference Range Interpretation Comments U Benzodiaz Scr (test Negative *NA*(05/26/19 code = U Benzodiaz Scr) 3:20 PM) [facility] [id number] 20:20:00 Test Item Value Reference Range Interpretation Comments U Cocaine Scr (test Negative *NA*(05/26/19 code = U Cocaine Scr) 3:20 PM) [facility] [id number] 20:20:00 Test Item Value Reference Range Interpretation Comments U Cannab Scr (test Negative *NA*(05/26/19 code = U Cannab Scr) 3:20 PM) [facility] [id number] 20:20:00 Test Item Value Reference Range Interpretation Comments U Opiate Scr (test Negative *NA*(05/26/19 code = U Opiate Scr) 3:20 PM) [facility] [id number] 20:20:00 Test Item Value Reference Range Interpretation Comments U Phencyclidine Scr (test Negative *NA*(05/26/19 code = U Phencyclidine 3:20 PM) Scr) [facility] [id number] 20:20:00 Test Item Value Reference Range Interpretation Comments UDS Note (test code = See Note (05/26/19 3:20 UDS Note) PM) [facility] [id number] 20:20:00 Test Item Value Reference Range Interpretation Comments U Amph Scr (test code Negative *NA*(05/26/19 = U Amph Scr) 3:20 PM) [facility] [id number] 20:20:00 Test Item Value Reference Range Interpretation Comments U Tereza Scr (test code Negative *NA*(05/26/19 = U Tereza Scr) 3:20 PM) [facility] [id number] 20:20:00 Test Item Value Reference Range Interpretation Comments U Benzodiaz Scr (test Negative *NA*(05/26/19 code = U Benzodiaz Scr) 3:20 PM) [facility] [id number] 20:20:00 Test Item Value Reference Range Interpretation Comments U Cocaine Scr (test Negative *NA*(05/26/19 code = U Cocaine Scr) 3:20 PM) [facility] [id number] 20:20:00 Test Item Value Reference Range Interpretation Comments U Cannab Scr (test Negative *NA*(05/26/19 code = U Cannab Scr) 3:20 PM) [facility] [id number] 20:20:00 Test Item Value Reference Range Interpretation Comments U Opiate Scr (test Negative *NA*(05/26/19 code = U Opiate Scr) 3:20 PM) [facility] [id number] 20:20:00 Test Item Value Reference Range Interpretation Comments U Phencyclidine Scr (test Negative *NA*(05/26/19 code = U Phencyclidine 3:20 PM) Scr) [facility] [id number] 20:20:00 Test Item Value Reference Range Interpretation Comments UDS Note (test code = See Note (05/26/19 3:20 UDS Note) PM) [facility] [id number] 20:20:00 Test Item Value Reference Range Interpretation Comments U Amph Scr (test code Negative *NA*(05/26/19 = U Amph Scr) 3:20 PM) [facility] [id number] 20:20:00 Test Item Value Reference Range Interpretation Comments U Tereza Scr (test code Negative *NA*(05/26/19 = U Tereza Scr) 3:20 PM) [facility] [id number] 20:20:00 Test Item Value Reference Range Interpretation Comments U Benzodiaz Scr (test Negative *NA*(05/26/19 code = U Benzodiaz Scr) 3:20 PM) [facility] [id number] 20:20:00 Test Item Value Reference Range Interpretation Comments U Cocaine Scr (test Negative *NA*(05/26/19 code = U Cocaine Scr) 3:20 PM) [facility] [id number] 20:20:00 Test Item Value Reference Range Interpretation Comments U Cannab Scr (test Negative *NA*(05/26/19 code = U Cannab Scr) 3:20 PM) [facility] [id number] 20:20:00 Test Item Value Reference Range Interpretation Comments U Opiate Scr (test Negative *NA*(05/26/19 code = U Opiate Scr) 3:20 PM) [facility] [id number] 20:20:00 Test Item Value Reference Range Interpretation Comments U Phencyclidine Scr (test Negative *NA*(05/26/19 code = U Phencyclidine 3:20 PM) Scr) [facility] [id number] 20:20:00 Test Item Value Reference Range Interpretation Comments UDS Note (test code = See Note (05/26/19 3:20 UDS Note) PM) [facility] [id number] 20:20:00 Test Item Value Reference Range Interpretation Comments U Amph Scr (test code Negative *NA*(05/26/19 = U Amph Scr) 3:20 PM) [facility] [id number] 20:20:00 Test Item Value Reference Range Interpretation Comments U Tereza Scr (test code Negative *NA*(05/26/19 = U Tereza Scr) 3:20 PM) [facility] [id number] 20:20:00 Test Item Value Reference Range Interpretation Comments U Benzodiaz Scr (test Negative *NA*(05/26/19 code = U Benzodiaz Scr) 3:20 PM) [facility] [id number] 20:20:00 Test Item Value Reference Range Interpretation Comments U Cocaine Scr (test Negative *NA*(05/26/19 code = U Cocaine Scr) 3:20 PM) [facility] [id number] 20:20:00 Test Item Value Reference Range Interpretation Comments U Cannab Scr (test Negative *NA*(05/26/19 code = U Cannab Scr) 3:20 PM) [facility] [id number] 20:20:00 Test Item Value Reference Range Interpretation Comments U Opiate Scr (test Negative *NA*(05/26/19 code = U Opiate Scr) 3:20 PM) [facility] [id number] 20:20:00 Test Item Value Reference Range Interpretation Comments U Phencyclidine Scr (test Negative *NA*(05/26/19 code = U Phencyclidine 3:20 PM) Scr) [facility] [id number] 20:20:00 Test Item Value Reference Range Interpretation Comments UDS Note (test code = See Note (05/26/19 3:20 UDS Note) PM) [facility] [id number] 20:20:00 Test Item Value Reference Range Interpretation Comments U Amph Scr (test code Negative *NA*(05/26/19 = U Amph Scr) 3:20 PM) [facility] [id number] 20:20:00 Test Item Value Reference Range Interpretation Comments U Tereza Scr (test code Negative *NA*(05/26/19 = U Tereza Scr) 3:20 PM) [facility] [id number] 20:20:00 Test Item Value Reference Range Interpretation Comments U Benzodiaz Scr (test Negative *NA*(05/26/19 code = U Benzodiaz Scr) 3:20 PM) [facility] [id number] 20:20:00 Test Item Value Reference Range Interpretation Comments U Cocaine Scr (test Negative *NA*(05/26/19 code = U Cocaine Scr) 3:20 PM) [facility] [id number] 20:20:00 Test Item Value Reference Range Interpretation Comments U Cannab Scr (test Negative *NA*(05/26/19 code = U Cannab Scr) 3:20 PM) [facility] [id number] 20:20:00 Test Item Value Reference Range Interpretation Comments U Opiate Scr (test Negative *NA*(05/26/19 code = U Opiate Scr) 3:20 PM) [facility] [id number] 20:20:00 Test Item Value Reference Range Interpretation Comments U Phencyclidine Scr (test Negative *NA*(05/26/19 code = U Phencyclidine 3:20 PM) Scr) [facility] [id number] 20:20:00 Test Item Value Reference Range Interpretation Comments UDS Note (test code = See Note (05/26/19 3:20 UDS Note) PM) [facility] [id number] 20:20:00 Test Item Value Reference Range Interpretation Comments U Amph Scr (test code Negative *NA*(05/26/19 = U Amph Scr) 3:20 PM) [facility] [id number] 20:20:00 Test Item Value Reference Range Interpretation Comments U Tereza Scr (test code Negative *NA*(05/26/19 = U Tereza Scr) 3:20 PM) [facility] [id number] 20:20:00 Test Item Value Reference Range Interpretation Comments U Benzodiaz Scr (test Negative *NA*(05/26/19 code = U Benzodiaz Scr) 3:20 PM) [facility] [id number] 20:20:00 Test Item Value Reference Range Interpretation Comments U Cocaine Scr (test Negative *NA*(05/26/19 code = U Cocaine Scr) 3:20 PM) [facility] [id number] 20:20:00 Test Item Value Reference Range Interpretation Comments U Cannab Scr (test Negative *NA*(05/26/19 code = U Cannab Scr) 3:20 PM) [facility] [id number] 20:20:00 Test Item Value Reference Range Interpretation Comments U Opiate Scr (test Negative *NA*(05/26/19 code = U Opiate Scr) 3:20 PM) [facility] [id number] 20:20:00 Test Item Value Reference Range Interpretation Comments U Phencyclidine Scr (test Negative *NA*(05/26/19 code = U Phencyclidine 3:20 PM) Scr) [facility] [id number] 20:20:00 Test Item Value Reference Range Interpretation Comments UDS Note (test code = See Note (05/26/19 3:20 UDS Note) PM) [facility] [id number] 20:20:00 Test Item Value Reference Range Interpretation Comments U Amph Scr (test code Negative *NA*(05/26/19 = U Amph Scr) 3:20 PM) [facility] [id number] 20:20:00 Test Item Value Reference Range Interpretation Comments U Tereza Scr (test code Negative *NA*(05/26/19 = U Tereza Scr) 3:20 PM) [facility] [id number] 20:20:00 Test Item Value Reference Range Interpretation Comments U Benzodiaz Scr (test Negative *NA*(05/26/19 code = U Benzodiaz Scr) 3:20 PM) [facility] [id number] 20:20:00 Test Item Value Reference Range Interpretation Comments U Cocaine Scr (test Negative *NA*(05/26/19 code = U Cocaine Scr) 3:20 PM) [facility] [id number] 20:20:00 Test Item Value Reference Range Interpretation Comments U Cannab Scr (test Negative *NA*(05/26/19 code = U Cannab Scr) 3:20 PM) [facility] [id number] 20:20:00 Test Item Value Reference Range Interpretation Comments U Opiate Scr (test Negative *NA*(05/26/19 code = U Opiate Scr) 3:20 PM) [facility] [id number] 20:20:00 Test Item Value Reference Range Interpretation Comments U Phencyclidine Scr (test Negative *NA*(05/26/19 code = U Phencyclidine 3:20 PM) Scr) [facility] [id number] 20:20:00 Test Item Value Reference Range Interpretation Comments UDS Note (test code = See Note (9/9/19 3:20 UDS Note) PM) [facility] [id number] 20:20:00 Test Item Value Reference Range Interpretation Comments U Amph Scr (test code Negative *NA*(05/26/19 = U Amph Scr) 3:20 PM) [facility] [id number] 20:20:00 Test Item Value Reference Range Interpretation Comments U Tereza Scr (test code Negative *NA*(05/26/19 = U Tereza Scr) 3:20 PM) [facility] [id number] 20:20:00 Test Item Value Reference Range Interpretation Comments U Benzodiaz Scr (test Negative *NA*(05/26/19 code = U Benzodiaz Scr) 3:20 PM) [facility] [id number] 20:20:00 Test Item Value Reference Range Interpretation Comments U Cocaine Scr (test Negative *NA*(05/26/19 code = U Cocaine Scr) 3:20 PM) [facility] [id number] 20:20:00 Test Item Value Reference Range Interpretation Comments U Cannab Scr (test Negative *NA*(05/26/19 code = U Cannab Scr) 3:20 PM) [facility] [id number] 20:20:00 Test Item Value Reference Range Interpretation Comments U Opiate Scr (test Negative *NA*(05/26/19 code = U Opiate Scr) 3:20 PM) [facility] [id number] 20:20:00 Test Item Value Reference Range Interpretation Comments U Phencyclidine Scr (test Negative *NA*(05/26/19 code = U Phencyclidine 3:20 PM) Scr) [facility] [id number] 20:20:00 Test Item Value Reference Range Interpretation Comments UDS Note (test code = See Note (05/26/19 3:20 UDS Note) PM) [facility] [id number] 17:18:00 Test Item Value Reference Range Interpretation Comments Lactic Acid Lvl (test code = Lactic 1.6 0.5-2.2 Acid Lvl) [facility] [id number] 17:18:00 Test Item Value Reference Range Interpretation Comments ACT (TEG) Rapid (test code = ACT (TEG) 121 s 86-118 Rapid) [facility] [id number] 17:18:00 Test Item Value Reference Range Interpretation Comments Split Point Rapid (test code = Split 0.7 min Point Rapid) [id number] 17:18:00 Test Item Value Reference Range Interpretation Comments R-time Rapid (test code = R-time 0.8 min 0.4-0.7 Rapid) [facility] [id number] 17:18:00 Test Item Value Reference Range Interpretation Comments K-time Rapid (test code = K-time 1.3 min 0.6-2.3 Rapid) [facility] [id number] 17:18:00 Test Item Value Reference Range Interpretation Comments Angle Rapid (test code = Angle 74 degrees 64-80 Rapid) [facility] [id number] 17:18:00 Test Item Value Reference Range Interpretation Comments Max Amplitude Rapid (test code = Max 73 mm 52-71 Amplitude Rapid) [facility] [id number] 17:18:00 Test Item Value Reference Range Interpretation Comments G-value Rapid (test code = G-value 13.4 5.0-11.6 Rapid) [facility] [id number] 17:18:00 Test Item Value Reference Range Interpretation Comments Estimated % Lysis Rapid 0.1 See_Comment [Au tomated message] The (test code = Estimated syste m which generated % Lysis Rapid) this result t ransmitted reference range : <=7.5. The reference r maría was not used to int erpret this result as normal/abnormal . [facility] [id number] 17:18:00 Test Item Value Reference Range Interpretation Comments Eosinophils (test code = 0.2 See_Comment [A utomated message] The Eosinophils) system which ge nerated this result tra nsmitted reference range : <=4.0. The reference r maría was not used to int erpret this result as normal/abnormal . [facility] [id number] 17:18:00 Test Item Value Reference Range Interpretation Comments Basophils # (test code 0.1 See_Comment [Aut omated message] The = Basophils #) system which generated this result tra nsmitted reference range : <=0.2. The reference r maría was not used to int erpret this result as normal/abnormal . [place] [id number] 17:18:00 Test Item Value Reference Range Interpretation Comments Ethanol Lvl (test code = Ethanol <3.0 mg/dL Lvl) [place] [id number] 17:18:00 Test Item Value Reference Range Interpretation Comments Etoh (%) (test code = Etoh (%)) <0.003 % [facility]2019-09-09 17:18:00 Test Item Value Reference Range Interpretation Comments Lactic Acid Lvl (test code = Lactic 1.6 0.5-2.2 Acid Lvl) [facility] [id number] 17:18:00 Test Item Value Reference Range Interpretation Comments ACT (TEG) Rapid (test code = ACT (TEG) 121 s 86-118 Rapid) [facility] [id number] 17:18:00 Test Item Value Reference Range Interpretation Comments Split Point Rapid (test code = Split 0.7 min Point Rapid) [facility] CentralRtqihzoRUMAIGGYUQ1572-16-29 17:18:00 Test Item Value Reference Range Interpretation Comments R-time Rapid (test code = R-time 0.8 min 0.4-0.7 Rapid) [facility] [id number] 17:18:00 Test Item Value Reference Range Interpretation Comments K-time Rapid (test code = K-time 1.3 min 0.6-2.3 Rapid) [facility] CentralDsgnscxGTUJHILJUN7691-00-36 17:18:00 Test Item Value Reference Range Interpretation Comments Angle Rapid (test code = Angle 74 degrees 64-80 Rapid) [facility] [id number] 17:18:00 Test Item Value Reference Range Interpretation Comments Max Amplitude Rapid (test code = Max 73 mm 52-71 Amplitude Rapid) [facility] CentralZnnkhwrSHXYTHEDFA6260-94-77 17:18:00 Test Item Value Reference Range Interpretation Comments G-value Rapid (test code = G-value 13.4 5.0-11.6 Rapid) [facility] Centr[id number] 17:18:00 Test Item Value Reference Range Interpretation Comments Estimated % Lysis Rapid 0.1 See_Comment [Au tomated message] The (test code = Estimated syste m which generated % Lysis Rapid) this result t ransmitted reference range : <=7.5. The reference r maría was not used to int erpret this result as normal/abnormal . [facility] [id number] 17:18:00 Test Item Value Reference Range Interpretation Comments Eosinophils (test code = 0.2 See_Comment [A utomated message] The Eosinophils) system which ge nerated this result tra nsmitted reference range : <=4.0. The reference r maría was not used to int erpret this result as normal/abnormal . [facility] CentralQirqxweTPPLUEHPCV3094-62-55 17:18:00 Test Item Value Reference Range Interpretation Comments Basophils # (test code 0.1 See_Comment [Aut omated message] The = Basophils #) system which generated this result tra nsmitted reference range : <=0.2. The reference r maría was not used to int erpret this result as normal/abnormal . [place] [id number] 17:18:00 Test Item Value Reference Range Interpretation Comments Ethanol Lvl (test code = Ethanol <3.0 mg/dL Lvl) [place] [id number] 17:18:00 Test Item Value Reference Range Interpretation Comments Etoh (%) (test code = Etoh (%)) <0.003 % [facility]2019-09-09 17:18:00 Test Item Value Reference Range Interpretation Comments Lactic Acid Lvl (test code = Lactic 1.6 0.5-2.2 Acid Lvl) [facility] CentralIkzzhgjPSKLIBGNKM3965-68-04 17:18:00 Test Item Value Reference Range Interpretation Comments ACT (TEG) Rapid (test code = ACT (TEG) 121 s 86-118 Rapid) [facility] CentralUqfohbqCKFOUENOPT3045-72-70 17:18:00 Test Item Value Reference Range Interpretation Comments Split Point Rapid (test code = Split 0.7 min Point Rapid) [facility] CentralKbsnxeuVDJKCUMECR3615-14-57 17:18:00 Test Item Value Reference Range Interpretation Comments R-time Rapid (test code = R-time 0.8 min 0.4-0.7 Rapid) [facility] CentralRfqrwxjAUBZIFZKGF0546-81-44 17:18:00 Test Item Value Reference Range Interpretation Comments K-time Rapid (test code = K-time 1.3 min 0.6-2.3 Rapid) [facility] CentralZbzycrmCWISDQLWDA5687-79-50 17:18:00 Test Item Value Reference Range Interpretation Comments Angle Rapid (test code = Angle 74 degrees 64-80 Rapid) [facility] CentralNbctbpxDXMAKGEXEG6442-65-23 17:18:00 Test Item Value Reference Range Interpretation Comments Max Amplitude Rapid (test code = Max 73 mm 52-71 Amplitude Rapid) [facility] CentralBreoruxJPRIERZQLQ6124-26-89 17:18:00 Test Item Value Reference Range Interpretation Comments G-value Rapid (test code = G-value 13.4 5.0-11.6 Rapid) [facility] CentralDrfeefxOEJSEWQTZQ7455-76-83 17:18:00 Test Item Value Reference Range Interpretation Comments Estimated % Lysis Rapid 0.1 See_Comment [Au tomated message] The (test code = Estimated syste m which generated % Lysis Rapid) this result t ransmitted reference range : <=7.5. The reference r maría was not used to int erpret this result as normal/abnormal . [facility] CentralIimwkpyZCPCHDSBGQ1628-36-34 17:18:00 Test Item Value Reference Range Interpretation Comments Eosinophils (test code = 0.2 See_Comment [A utomated message] The Eosinophils) system which ge nerated this result tra nsmitted reference range : <=4.0. The reference r maría was not used to int erpret this result as normal/abnormal . [facility] CentralEohenxmQCEXFWPYQN2388-01-87 17:18:00 Test Item Value Reference Range Interpretation Comments Basophils # (test code 0.1 See_Comment [Aut omated message] The = Basophils #) system which generated this result tra nsmitted reference range : <=0.2. The reference r maría was not used to int erpret this result as normal/abnormal . [place] [id number] 17:18:00 Test Item Value Reference Range Interpretation Comments Ethanol Lvl (test code = Ethanol <3.0 mg/dL Lvl) [place] [id number] 17:18:00 Test Item Value Reference Range Interpretation Comments Etoh (%) (test code = Etoh (%)) <0.003 % [facility]2019-09-09 17:18:00 Test Item Value Reference Range Interpretation Comments Lactic Acid Lvl (test code = Lactic 1.6 0.5-2.2 Acid Lvl) [facility] CentralCejpolbSWECFHLROC0786-56-07 17:18:00 Test Item Value Reference Range Interpretation Comments ACT (TEG) Rapid (test code = ACT (TEG) 121 s 86-118 Rapid) [facility] CentralMjoopqdLCAFNCCMYM5369-43-12 17:18:00 Test Item Value Reference Range Interpretation Comments Split Point Rapid (test code = Split 0.7 min Point Rapid) [facility] CentralDxigjtgTGCCJQPNTK5122-02-55 17:18:00 Test Item Value Reference Range Interpretation Comments R-time Rapid (test code = R-time 0.8 min 0.4-0.7 Rapid) [facility] CentralZwdsnzbZSLMGYAMOZ9814-98-41 17:18:00 Test Item Value Reference Range Interpretation Comments K-time Rapid (test code = K-time 1.3 min 0.6-2.3 Rapid) [facility] CentralJbtdhbpOTLRHHJTGV2405-95-26 17:18:00 Test Item Value Reference Range Interpretation Comments Angle Rapid (test code = Angle 74 degrees 64-80 Rapid) [facility] CentralKwmyaghXJTSOUMUIU0155-30-51 17:18:00 Test Item Value Reference Range Interpretation Comments Max Amplitude Rapid (test code = Max 73 mm 52-71 Amplitude Rapid) [facility] [id number] 17:18:00 Test Item Value Reference Range Interpretation Comments G-value Rapid (test code = G-value 13.4 5.0-11.6 Rapid) [facility] [id number] 17:18:00 Test Item Value Reference Range Interpretation Comments Estimated % Lysis Rapid 0.1 See_Comment [Au tomated message] The (test code = Estimated syste m which generated % Lysis Rapid) this result t ransmitted reference range : <=7.5. The reference r maría was not used to int erpret this result as normal/abnormal . [facility] [id number] 17:18:00 Test Item Value Reference Range Interpretation Comments Eosinophils (test code = 0.2 See_Comment [A utomated message] The Eosinophils) system which ge nerated this result tra nsmitted reference range : <=4.0. The reference r maría was not used to int erpret this result as normal/abnormal . [facility] [id number] 17:18:00 Test Item Value Reference Range Interpretation Comments Basophils # (test code 0.1 See_Comment [Aut omated message] The = Basophils #) system which generated this result tra nsmitted reference range : <=0.2. The reference r maría was not used to int erpret this result as normal/abnormal . [place] [id number] 17:18:00 Test Item Value Reference Range Interpretation Comments Ethanol Lvl (test code = Ethanol <3.0 mg/dL Lvl) [place] [id number] 17:18:00 Test Item Value Reference Range Interpretation Comments Etoh (%) (test code = Etoh (%)) <0.003 % [facility]2019-09-09 17:18:00 Test Item Value Reference Range Interpretation Comments Lactic Acid Lvl (test code = Lactic 1.6 0.5-2.2 Acid Lvl) [facility] [id number] 17:18:00 Test Item Value Reference Range Interpretation Comments ACT (TEG) Rapid (test code = ACT (TEG) 121 s 86-118 Rapid) [facility] CentralGflcvahVJGIBHGUSM7498-16-74 17:18:00 Test Item Value Reference Range Interpretation Comments Split Point Rapid (test code = Split 0.7 min Point Rapid) [facility] [id number] 17:18:00 Test Item Value Reference Range Interpretation Comments R-time Rapid (test code = R-time 0.8 min 0.4-0.7 Rapid) [facility] CentralHjsqacsJDVAQJSWPK4214-05-98 17:18:00 Test Item Value Reference Range Interpretation Comments K-time Rapid (test code = K-time 1.3 min 0.6-2.3 Rapid) [facility] Centr[id number] 17:18:00 Test Item Value Reference Range Interpretation Comments Angle Rapid (test code = Angle 74 degrees 64-80 Rapid) [facility] Centr[id number] 17:18:00 Test Item Value Reference Range Interpretation Comments Max Amplitude Rapid (test code = Max 73 mm 52-71 Amplitude Rapid) [facility] CentralPzmlpwhVQIPQRNHXC1794-00-15 17:18:00 Test Item Value Reference Range Interpretation Comments G-value Rapid (test code = G-value 13.4 5.0-11.6 Rapid) [facility] Centr[id number] 17:18:00 Test Item Value Reference Range Interpretation Comments Estimated % Lysis Rapid 0.1 See_Comment [Au tomated message] The (test code = Estimated syste m which generated % Lysis Rapid) this result t ransmitted reference range : <=7.5. The reference r maría was not used to int erpret this result as normal/abnormal . [facility] [id number] 17:18:00 Test Item Value Reference Range Interpretation Comments Eosinophils (test code = 0.2 See_Comment [A utomated message] The Eosinophils) system which ge nerated this result tra nsmitted reference range : <=4.0. The reference r maría was not used to int erpret this result as normal/abnormal . [facility] [id number] 17:18:00 Test Item Value Reference Range Interpretation Comments Basophils # (test code 0.1 See_Comment [Aut omated message] The = Basophils #) system which generated this result tra nsmitted reference range : <=0.2. The reference r maría was not used to int erpret this result as normal/abnormal . [place] [id number] 17:18:00 Test Item Value Reference Range Interpretation Comments Ethanol Lvl (test code = Ethanol <3.0 mg/dL Lvl) [place] [id number] 17:18:00 Test Item Value Reference Range Interpretation Comments Etoh (%) (test code = Etoh (%)) <0.003 % [facility]2019-09-09 17:18:00 Test Item Value Reference Range Interpretation Comments Lactic Acid Lvl (test code = Lactic 1.6 0.5-2.2 Acid Lvl) [facility] [id number] 17:18:00 Test Item Value Reference Range Interpretation Comments ACT (TEG) Rapid (test code = ACT (TEG) 121 s 86-118 Rapid) [facility] CentralQfhvqvtWTLGSEGGRK5074-01-17 17:18:00 Test Item Value Reference Range Interpretation Comments Split Point Rapid (test code = Split 0.7 min Point Rapid) [facility] CentralNpmeppyPCJEEKWTMT0886-30-92 17:18:00 Test Item Value Reference Range Interpretation Comments R-time Rapid (test code = R-time 0.8 min 0.4-0.7 Rapid) [facility] Centr[id number] 17:18:00 Test Item Value Reference Range Interpretation Comments K-time Rapid (test code = K-time 1.3 min 0.6-2.3 Rapid) [facility] CentralR[id number] 17:18:00 Test Item Value Reference Range Interpretation Comments Angle Rapid (test code = Angle 74 degrees 64-80 Rapid) [facility] Centr[id number] 17:18:00 Test Item Value Reference Range Interpretation Comments Max Amplitude Rapid (test code = Max 73 mm 52-71 Amplitude Rapid) [facility] CentralXzqeznqWKCQULUPOU6538-04-78 17:18:00 Test Item Value Reference Range Interpretation Comments G-value Rapid (test code = G-value 13.4 5.0-11.6 Rapid) [facility] Centr[id number] 17:18:00 Test Item Value Reference Range Interpretation Comments Estimated % Lysis Rapid 0.1 See_Comment [Au tomated message] The (test code = Estimated syste m which generated % Lysis Rapid) this result t ransmitted reference range : <=7.5. The reference r maría was not used to int erpret this result as normal/abnormal . [facility] CentralHbuanifXAGZWIEJDS9504-27-65 17:18:00 Test Item Value Reference Range Interpretation Comments Eosinophils (test code = 0.2 See_Comment [A utomated message] The Eosinophils) system which ge nerated this result tra nsmitted reference range : <=4.0. The reference r maría was not used to int erpret this result as normal/abnormal . [facility] CentralAaeoagyUDCPIOCWPF4230-71-68 17:18:00 Test Item Value Reference Range Interpretation Comments Basophils # (test code 0.1 See_Comment [Aut omated message] The = Basophils #) system which generated this result tra nsmitted reference range : <=0.2. The reference r maría was not used to int erpret this result as normal/abnormal . [place] [id number] 17:18:00 Test Item Value Reference Range Interpretation Comments Ethanol Lvl (test code = Ethanol <3.0 mg/dL Lvl) [place] [id number] 17:18:00 Test Item Value Reference Range Interpretation Comments Etoh (%) (test code = Etoh (%)) <0.003 % [facility]2019-09-09 17:18:00 Test Item Value Reference Range Interpretation Comments Lactic Acid Lvl (test code = Lactic 1.6 0.5-2.2 Acid Lvl) [facility] Centr[id number] 17:18:00 Test Item Value Reference Range Interpretation Comments ACT (TEG) Rapid (test code = ACT (TEG) 121 s 86-118 Rapid) [facility] CentralWijdeosQVJFWCPQTC2003-97-56 17:18:00 Test Item Value Reference Range Interpretation Comments Split Point Rapid (test code = Split 0.7 min Point Rapid) [facility] Centr[id number] 17:18:00 Test Item Value Reference Range Interpretation Comments R-time Rapid (test code = R-time 0.8 min 0.4-0.7 Rapid) [facility] CentralConmedqNXFQGYWSNL3264-14-73 17:18:00 Test Item Value Reference Range Interpretation Comments K-time Rapid (test code = K-time 1.3 min 0.6-2.3 Rapid) [facility] CentralJoqwbiaMRFFPZIFLV8051-88-54 17:18:00 Test Item Value Reference Range Interpretation Comments Angle Rapid (test code = Angle 74 degrees 64-80 Rapid) [facility] CentralBfhcmiqPDALXZYVTC7455-71-95 17:18:00 Test Item Value Reference Range Interpretation Comments Max Amplitude Rapid (test code = Max 73 mm 52-71 Amplitude Rapid) [facility] [id number] 17:18:00 Test Item Value Reference Range Interpretation Comments G-value Rapid (test code = G-value 13.4 5.0-11.6 Rapid) [facility] CentralQekybnsLWQTCAGQIE5857-90-62 17:18:00 Test Item Value Reference Range Interpretation Comments Estimated % Lysis Rapid 0.1 See_Comment [Au tomated message] The (test code = Estimated syste m which generated % Lysis Rapid) this result t ransmitted reference range : <=7.5. The reference r maría was not used to int erpret this result as normal/abnormal . [facility] Centr[id number] 17:18:00 Test Item Value Reference Range Interpretation Comments Eosinophils (test code = 0.2 See_Comment [A utomated message] The Eosinophils) system which ge nerated this result tra nsmitted reference range : <=4.0. The reference r maría was not used to int erpret this result as normal/abnormal . [facility] Central[id number] 17:18:00 Test Item Value Reference Range Interpretation Comments Basophils # (test code 0.1 See_Comment [Aut omated message] The = Basophils #) system which generated this result tra nsmitted reference range : <=0.2. The reference r maría was not used to int erpret this result as normal/abnormal . [place] [id number] 17:18:00 Test Item Value Reference Range Interpretation Comments Ethanol Lvl (test code = Ethanol <3.0 mg/dL Lvl) [place] [id number] 17:18:00 Test Item Value Reference Range Interpretation Comments Etoh (%) (test code = Etoh (%)) <0.003 % [facility]2019-09-09 17:18:00 Test Item Value Reference Range Interpretation Comments Lactic Acid Lvl (test code = Lactic 1.6 0.5-2.2 Acid Lvl) [facility] Centr[id number] 17:18:00 Test Item Value Reference Range Interpretation Comments ACT (TEG) Rapid (test code = ACT (TEG) 121 s 86-118 Rapid) [facility] Centr[id number] 17:18:00 Test Item Value Reference Range Interpretation Comments Split Point Rapid (test code = Split 0.7 min Point Rapid) [facility] CentralWcxudcwUEBHNOLZKF3938-64-87 17:18:00 Test Item Value Reference Range Interpretation Comments R-time Rapid (test code = R-time 0.8 min 0.4-0.7 Rapid) [facility] CentralRieilbsNCNBMTILQD8704-08-32 17:18:00 Test Item Value Reference Range Interpretation Comments K-time Rapid (test code = K-time 1.3 min 0.6-2.3 Rapid) [facility] CentralRqoteytKKOUXPHACT3415-83-89 17:18:00 Test Item Value Reference Range Interpretation Comments Angle Rapid (test code = Angle 74 degrees 64-80 Rapid) [facility] CentralSycqacdTRBZNUIQAF9090-42-17 17:18:00 Test Item Value Reference Range Interpretation Comments Max Amplitude Rapid (test code = Max 73 mm 52-71 Amplitude Rapid) [facility] CentralKgndvjqBMGQMWNAAU5534-57-70 17:18:00 Test Item Value Reference Range Interpretation Comments G-value Rapid (test code = G-value 13.4 5.0-11.6 Rapid) [facility] CenterCcvhexmKMGCRZVNEJ2646-57-54 17:18:00 Test Item Value Reference Range Interpretation Comments Estimated % Lysis Rapid 0.1 See_Comment [Au tomated message] The (test code = Estimated syste m which generated % Lysis Rapid) this result t ransmitted reference range : <=7.5. The reference r maría was not used to int erpret this result as normal/abnormal . [facility] CenterMdbkwryJDVFJSVVFF6107-68-33 17:18:00 Test Item Value Reference Range Interpretation Comments Eosinophils (test code = 0.2 See_Comment [A utomated message] The Eosinophils) system which ge nerated this result tra nsmitted reference range : <=4.0. The reference r maría was not used to int erpret this result as normal/abnormal . [facility] CenterFsnxxqbXPCOKYBTNY9963-81-44 17:18:00 Test Item Value Reference Range Interpretation Comments Basophils # (test code 0.1 See_Comment [Aut omated message] The = Basophils #) system which generated this result tra nsmitted reference range : <=0.2. The reference r maría was not used to int erpret this result as normal/abnormal . [facility]FWDRKFWZMM8546[facility] 17:18:00 Test Item Value Reference Range Interpretation Comments Ethanol Lvl (test code = Ethanol <3.0 mg/dL Lvl) [facility] HospitalQrdqqnwAUYXNGZEPX8223-00-27 17:18:00 Test Item Value Reference Range Interpretation Comments Etoh (%) (test code = Etoh (%)) <0.003 % [facility] [employer] [id number] 17:12:00 Test Item Value Reference Range Interpretation Comments ABO/Rh (test code = ABO/Rh) O POS [employer] [id number] 17:12:00 Test Item Value Reference Range Interpretation Comments Antibody Scrn (test Negative (05/26/19 12:12 code = Antibody Scrn) PM) [facility] [employer] [id number] 17:12:00 Test Item Value Reference Range Interpretation Comments ABO/Rh (test code = ABO/Rh) O POS [employer] [id number] 17:12:00 Test Item Value Reference Range Interpretation Comments Antibody Scrn (test Negative (05/26/19 12:12 code = Antibody Scrn) PM) [facility] [employer] [id number] 17:12:00 Test Item Value Reference Range Interpretation Comments ABO/Rh (test code = ABO/Rh) O POS [facility] [employer] [id number] 17:12:00 Test Item Value Reference Range Interpretation Comments Antibody Scrn (test Negative (05/26/19 12:12 code = Antibody Scrn) PM) [facility] [id number] 17:12:00 Test Item Value Reference Range Interpretation Comments ABO/Rh (test code = ABO/Rh) O POS [facility] [employer] [id number] 17:12:00 Test Item Value Reference Range Interpretation Comments Antibody Scrn (test Negative (05/26/19 12:12 code = Antibody Scrn) PM) [facility] [employer] [id number] 17:12:00 Test Item Value Reference Range Interpretation Comments ABO/Rh (test code = ABO/Rh) O POS [facility] [id number] 17:12:00 Test Item Value Reference Range Interpretation Comments Antibody Scrn (test Negative (05/26/19 12:12 code = Antibody Scrn) PM) [facility] [id number] 17:12:00 Test Item Value Reference Range Interpretation Comments ABO/Rh (test code = ABO/Rh) O [facility] [employer] [id number] 17:12:00 Test Item Value Reference Range Interpretation Comments Antibody Scrn (test Negative (05/26/19 12:12 code = Antibody Scrn) PM) [facility] [id number] 17:12:00 Test Item Value Reference Range Interpretation Comments ABO/Rh (test code = ABO/Rh) O [facility] [employer] [id number] 17:12:00 Test Item Value Reference Range Interpretation Comments Antibody Scrn (test Negative (05/26/19 12:12 code = Antibody Scrn) PM) [facility] [id number] 17:12:00 Test Item Value Reference Range Interpretation Comments ABO/Rh (test code = ABO/Rh) O POS [facility] [id number] 17:12:00 Test Item Value Reference Range Interpretation Comments Antibody Scrn (test Negative (05/26/19 12:12 code = Antibody Scrn) PM) Lily Antoine Notes Date/Time Note Provider Source 2019-09-15 Brain wo contrast MRA, Brain w/wo contrast MRI 1 12:48 [facility] [place] 12:48:00-00:00 Clinical Indication: - Syncope; Comparison: 05/29/2019 CT TECHNIQUE: Multiplanar MRI o f the brain is performed without and with contrast. 20 mL of intravenous gadolinium was given. Noncontrast MRA of the [place] was also performed. FINDINGS: BRAIN: Small acute infarcts involve the right lentiform nucleus and right parietal occipital cortex. No acute intracranial hemorrhage. Moderate chronic microvascul ar ischemia is present. The brainstem is unremarkable. Mild cerebral atrophy is present. Extra-axial partly calcified enhancing masses are present in the right perisylvian and left occipital. The right sylvian fissure lesion measures 2.5 x 2.3 cm, left occipital convexity lesion measures 2.6 x 2.5 cm. No adjacent vasogenic edema. CEREBELLOPONTINE REGIONS, SE LLA, AND SKULL: The cerebellopontine angles appear unremarkable. No skull abnormality is seen. The pituitary gland appears unremarkable. VENTRICLES: The ventricles a nd sulci are normal in size and configuration for age. ORBITS, VISUALIZED PARANASAL SINUSES/MASTOIDS/CERVICAL SPINE: Paranasal sinuses are clear. The mastoid air cells are clear. No orbital pathology is seen. MRA [place]: The ci rcle of [place] and the proximal cerebral arterial segments appear patent. IMPRESSION: 1. 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 No acute hemorrhage. 2. Moderate chronic microvascular ischemia. 3. Stable right perisylvian and left occipital c alcified meningiomas. 4. MRA: No [place] or proximal cerebral arterial segment occlusion identified. Telephone call to discuss re sults was placed to the patient's nurse, Ms. [place], on 09/16/2019 8:32 [facility]. 2019-09-15 Brain wo contrast MRA, Brain w/wo contrast MRI 1 12:48 [facility] [place] 12:48:00-00:00 Clinical Indication: - Syncope; Comparison: 05/29/2019 CT TECHNIQUE: Multiplanar MRI o f the brain is performed without and with contrast. 20 mL of intravenous gadolinium was given. Noncontrast MRA of the [place] was also performed. FINDINGS: BRAIN: Small acute infarcts involve the right lentiform nucleus and right parietal occipital cortex. No acute intracranial hemorrhage. Moderate chronic microvascul ar ischemia is present. The brainstem is unremarkable. Mild cerebral atrophy is present. Extra-axial partly calcified enhancing masses are present in the right perisylvian and left occipital. The right sylvian fissure lesion measures 2.5 x 2.3 cm, left occipital convexity lesion measures 2.6 x 2.5 cm. No adjacent vasogenic edema. CEREBELLOPONTINE REGIONS, SE LLA, AND SKULL: The cerebellopontine angles appear unremarkable. No skull abnormality is seen. The pituitary gland appears unremarkable. VENTRICLES: The ventricles a nd sulci are normal in size and configuration for age. ORBITS, VISUALIZED PARANASAL SINUSES/MASTOIDS/CERVICAL SPINE: Paranasal sinuses are clear. The mastoid air cells are clear. No orbital pathology is seen. MRA [place]: The ci rcle of [place] and the proximal cerebral arterial segments appear patent. IMPRESSION: 1. 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 No acute hemorrhage. 2. Moderate chronic microvascular ischemia. 3. Stable right perisylvian and left occipital c alcified meningiomas. 4. MRA: No [place] or proximal cerebral arterial segment occlusion identified. Telephone call to discuss re sults was placed to the patient's nurse, Rosa Elena, on 09/16/2019 8:32 [facility]ILER. 2019-09-15 Brain wo contrast MRA, Brain w/wo contrast MRI 1 12:48 [facility] [place] 12:36:00-00:00 Clinical Indication: - Syncope; Comparison: 05/29/2019 CT TECHNIQUE: Multiplanar MRI o f the brain is performed without and with contrast. 20 mL of intravenous gadolinium was given. Noncontrast MRA of the [place] was also performed. FINDINGS: BRAIN: Small acute infarcts involve the right lentiform nucleus and right parietal occipital cortex. No acute intracranial hemorrhage. Moderate chronic microvascul ar ischemia is present. The brainstem is unremarkable. Mild cerebral atrophy is present. Extra-axial partly calcified enhancing masses are present in the right perisylvian and left occipital. The right sylvian fissure lesion measures 2.5 x 2.3 cm, left occipital convexity lesion measures 2.6 x 2.5 cm. No adjacent vasogenic edema. CEREBELLOPONTINE REGIONS, SE LLA, AND SKULL: The cerebellopontine angles appear unremarkable. No skull abnormality is seen. The pituitary gland appears unremarkable. VENTRICLES: The ventricles a nd sulci are normal in size and configuration for age. ORBITS, VISUALIZED PARANASAL SINUSES/MASTOIDS/CERVICAL SPINE: Paranasal sinuses are clear. The mastoid air cells are clear. No orbital pathology is seen. MRA [place]: The ci rcle of [place] and the proximal cerebral arterial segments appear patent. IMPRESSION: 1. 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 No acute hemorrhage. 2. Moderate chronic microvascular ischemia. 3. Stable right perisylvian and left occipital c alcified meningiomas. 4. MRA: No [place] or proximal cerebral arterial segment occlusion identified. Telephone call to discuss re sults was placed to the patient's nurse, Ms. [place], on 09/16/2019 8:32 [facility]COILER. 2019-09-15 Neck wo contrast MRA 09/15/2019 12:36 [facility] [place] 12:36:00-00:00 Clinical: Syncope - . Technique: Magnetic resonanc e angiography of the neck was performed without gadolinium administration. Comparison: 05/26/2019 CTA exam. Findings: Right cervical carotid arter ies: Visualized common carotid artery is patent. Internal carotid artery is patent without significant stenosis by NASCET criteria. Left cervical carotid arteri es: Visualized common carotid artery is patent. Internal carotid artery is patent without significant stenosis by NASCET criteria. Cervical vertebral arteries: The left vertebral artery is dominant. The right vertebral artery is hypoplastic, similar to the prior CTA, with decreased flow signal relative to the left vertebral artery. Impression: 1. Patent extracranial carotid arteries. 2. Diminished flow signal wi thin the hypoplastic right vertebral artery is likely partly due to patient motion and small caliber. Patent left vertebral artery. Note: Vessel stenosis assessment is made utilritui matthias NASCET criteria. 2019-09-15 Brain wo contrast MRA, Brain w/wo contrast MRI 1 12:48 [facility] [place] 12:36:00-00:00 Clinical Indication: - Syncope; Comparison: 05/29/2019 CT TECHNIQUE: Multiplanar MRI o f the brain is performed without and with contrast. 20 mL of intravenous gadolinium was given. Noncontrast MRA of the [place] was also performed. FINDINGS: BRAIN: Small acute infarcts involve the right lentiform nucleus and right parietal occipital cortex. No acute intracranial hemorrhage. Moderate chronic microvascul ar ischemia is present. The brainstem is unremarkable. Mild cerebral atrophy is present. Extra-axial partly calcified enhancing masses are present in the right perisylvian and left occipital. The right sylvian fissure lesion measures 2.5 x 2.3 cm, left occipital convexity lesion measures 2.6 x 2.5 cm. No adjacent vasogenic edema. CEREBELLOPONTINE REGIONS, SE LLA, AND SKULL: The cerebellopontine angles appear unremarkable. No skull abnormality is seen. The pituitary gland appears unremarkable. VENTRICLES: The ventricles a nd sulci are normal in size and configuration for age. ORBITS, VISUALIZED PARANASAL SINUSES/MASTOIDS/CERVICAL SPINE: Paranasal sinuses are clear. The mastoid air cells are clear. No orbital pathology is seen. MRA [place]: The ci rcle of [place] and the proximal cerebral arterial segments appear patent. IMPRESSION: 1. 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 No acute hemorrhage. 2. Moderate chronic microvascular ischemia. 3. Stable right perisylvian and left occipital c alcified meningiomas. 4. MRA: No [place] or proximal cerebral arterial segment occlusion identified. Telephone call to discuss re sults was placed to the patient's nurse, Ms. [place], on 09/16/2019 8:32 OVERCOILER. 2019-09-15 Neck wo contrast MRA 09/15/2019 12:36 OVERCOILER [place] 12:36:00-00:00 Clinical: Syncope - . Technique: Magnetic resonanc e angiography of the neck was performed without gadolinium administration. Comparison: 05/26/2019 CTA exam. Findings: Right cervical carotid arter ies: Visualized common carotid artery is patent. Internal carotid artery is patent without significant stenosis by NASCET criteria. Left cervical carotid arteri es: Visualized common carotid artery is patent. Internal carotid artery is patent without significant stenosis by NASCET criteria. Cervical vertebral arteries: The left vertebral artery is dominant. The right vertebral artery is hypoplastic, similar to the prior CTA, with decreased flow signal relative to the left vertebral artery. Impression: 1. Patent extracranial carotid arteries. 2. Diminished flow signal wi thin the hypoplastic right vertebral artery is likely partly due to patient motion and small caliber. Patent left vertebral artery. Note: Vessel stenosis assessment is made utilizi ng NASCET criteria. 2019-09-14 Chest 1view DX 09/14/2019 10:29 PM OVERCOILER [place] 22:29:00-00:00 INDICATION: SOB - COPD exacerbation vs CHF COMPARISON: 06/02/2019. FINDINGS: Lines and tubes: None Lungs/mediastinum: Underlyin g mild pulmonary vascular prominence is noted. Vague patchy opacification in the right lower lung may represent atelectasis or early pneumonia.No pleural effusion.No pneumothorax. Heart: Cardiomegaly and athe rosclerotic vascular disease of thoracic aorta are present. Bones: No acute bony change. Upper abdomen: No acute findings in the upper ab domen. IMPRESSION: 1. Underlying mild pulmonary vascular prominence is noted. 2. Vague patchy opacificatio n in the right lower lung may represent atelectasis or early pneumonia. 3. Cardiomegaly and atherosc lerotic vascular disease of thoracic aorta are present. Otherwise unremarkable examination. 2019-09-14 Chest 1view DX 09/14/2019 10:29 PM OVERCOIL[facility] [place] 22:29:00-00:00 INDICATION: SOB - COPD exacerbation vs CHF COMPARISON: 06/02/2019. FINDINGS: Lines and tubes: None Lungs/mediastinum: Underlyin g mild pulmonary vascular prominence is noted. Vague patchy opacification in the right lower lung may represent atelectasis or early pneumonia.No pleural effusion.No pneumothorax. Heart: Cardiomegaly and athe rosclerotic vascular disease of thoracic aorta are present. Bones: No acute bony change. Upper abdomen: No acute findings in the upper ab domen. IMPRESSION: 1. Underlying mild pulmonary vascular prominence is noted. 2. Vague patchy opacificatio n in the right lower lung may represent atelectasis or early pneumonia. 3. Cardiomegaly and atherosc lerotic vascular disease of thoracic aorta are present. Otherwise unremarkable examination. 2019-06-02 EXAM: XR CHEST 1 VIEW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
[2023-04-17 06:44] LABS: Absolute Lymphocytes (CBC) 1.8 K/uL (0.7-4.9); Hematocrit 33.6 % (36.0-45.0); Lymphocytes % 20.5 % (15.3-44.8); MCV 90.6 fL (80-100); MPV 8.3 fL (7.6-11.3); RBC Red Blood Cell Count 3.71 M/uL (3.86-4.86)
[2023-04-17] MEDS ORDERED: CEFTRIAXONE 1000 MG/VIAL ONE (06:59)
[2023-04-17] MEDS ORDERED: METHYLPREDNISOLONE 40 MG INJ ONE (06:59)
[2023-04-17] MEDS ORDERED: NA CHLORIDE 0.9% 50 ML ONE (06:59)
[2023-04-17] MEDS ORDERED: NA CHLORIDE 0.9% 250 ML ONE (06:59)
[2023-04-17] MEDS ORDERED: ALBUTEROL 2.5 MG/3 ML NEB SOL ONE (06:59)
[2023-04-17 07:02] LABS: Bilirubin Direct 0.1 mg/dL (0-0.2); Bilirubin Indirect, Calculated 0.4 mg/dL (0.2-0.8); Bilirubin Total 0.5 mg/dL (0.2-1.0); Magnesium 1.9 mg/dL (1.6-2.4); Protein, Total 6.3 g/dL (6.4-8.2); Troponin High Sensitivity 21.6 pg/mL (<58.9)
--- NOTE | 2023-04-17 07:30 | RAD REPORT ---
EXAM DESCRIPTION: RAD - Chest Single View - 04/17/2023 6:21 am CLINICAL HISTORY: COPD Chest pain. COMPARISON: Chest Single View dated 01/28/2023; Chest Single View dated 12/17/2022; Chest Pa And Lat (2 Views) dated 09/02/2022; Chest Single View dated 04/09/2022 FINDINGS: Portable technique limits examination quality. Mild interstitial pulmonary edema. Trace pleural effusion. The heart is moderately enlarged. No displ aced fractures. IMPRESSION: Mild CHF.
[2023-04-17] MEDS ORDERED: AZITHROMYCIN 500 MG INJ IVPB ONE (07:39)
[2023-04-17] MEDS ORDERED: FUROSEMIDE 40 MG/4 ML VIAL ONE (07:54)
--- NOTE | 2023-04-17 08:36 | ER ---
Nurse's Notes [facility] Name: Breanne Montes De Oca Age: 77 yrs Sex: Female : 1945 Arrival Date: 04/17/2023 Time: 05:25 Bed 7 Private MD: Diagnosis: COPD/ Chronic obstructive pulmonary disease with (acute) exacerbation;Unspecified combined systolic (congestive) and diastolic (congestive) heart failure;Acute pulmonary edema Presentation: 04/17 05:41 Chief complaint: Patient states: "The last several days I have been getting more short as6 of breath". Coronavirus screen: At this time, the client does not indicate any symptoms associated with coronavirus-19. Ebola Screen: No symptoms or risks identified at this time. Initial Sepsis Screen: Does the patient meet any 2 criteria? No. Patient's initial sepsis screen is negative. Does the patient have a suspected source of infection? No. Patient's initial sepsis screen is negative. Risk Assessment: Do you want to hurt yourself or someone else? Patient reports no desire to harm self or others. Onset of symptoms was April 15, 2023. 05:41 Acuity: FIOR 3 as6 05:41 Method Of Arrival: Ambulatory as6 Historical: - Allergies: 05:41 NKDA; as6 - PMHx: 05:41 aortic aneurysm; Arthritis; Asthma; Bipolar disorder; Bronchitis; CHF; COPD; Home O2 3 as6 L NC; Hypertension; Hypothyroidism; Osteoporosis; psoriasis; Urinary incontinence; - PSHx: 05:41 Appendectomy; Cholecystectomy; as6 - Immunization history:: Client reports having NOT received the Covid vaccine. - Social history:: Smoking status: Patient/guardian denies using tobacco, but has a distant history of tobacco abuse. Screenin:14 [facility] ED Fall Risk Assessment (Adult) History of falling in the last 3 months, lg3 including since admission No falls in past 3 months (0 pts). Abuse screen: Denies threats or abuse. Denies injuries from another. Nutritional screening: No deficits noted. Tuberculosis screening: No symptoms or risk factors identified. Assessment: 06:14 General: Appears in no apparent distress. uncomfortable, Behavior is calm, cooperative. lg3 Pain: Denies pain. Neuro: No deficits noted. Wiley Agitation-Sedation Scale (RASS): 0 - Alert and Calm Level of Consciousness is awake, alert, obeys commands, Oriented to person, place, time, situation. Cardiovascular: No deficits noted. Reports shortness of breath, Denies chest pain, Rhythm is sinus rhythm. Respiratory: Reports shortness of breath cough that is Airway is patent Respiratory effort is even, unlabored, Respiratory pattern is regular, tachypnea Breath sounds with crackles bilaterally. GI: No deficits noted. No signs and/or symptoms were reported involving the gastrointestinal system. Abdomen is round non-distended, obese. : No deficits noted. No signs and/or symptoms were reported regarding the genitourinary system. EENT: No deficits noted. No signs and/or symptoms were reported regarding the EENT system. Derm: No deficits noted. No signs and/or symptoms reported regarding the dermatologic system. Skin is intact, is thin, Skin is dry, Skin is normal, Skin temperature is warm. Musculoskeletal: No deficits noted. Circulation, motion, and sensation intact. Range of motion: intact in all extremities. 07:00 General: Appears in no apparent distress. comfortable, Behavior is calm, cooperative, kc6 appropriate for age. Pain: Denies pain. Neuro: Level of Consciousness is awake, alert, obeys commands, Oriented to person, place, time, situation, Appropriate for age. Cardiovascular: Capillary refill < 3 seconds. Respiratory: Reports shortness of breath cough that is Airway is patent Trachea midline Respiratory effort is even, unlabored, Respiratory pattern is symmetrical, tachypnea. GI: No signs and/or symptoms were reported involving the gastrointestinal system. : No signs and/or symptoms were reported regarding the genitourinary system. EENT: No signs and/or symptoms were reported regarding the EENT system. Derm: No signs and/or symptoms reported regarding the dermatologic system. Skin is intact, is healthy with good turgor, Skin is pink, warm \\T\\ dry. Musculoskeletal: No signs and/or symptoms reported regarding the musculoskeletal system. Circulation, motion, and sensation intact. Capillary refill < 3 seconds, Range of motion: intact in all extremities. 07:27 Reassessment: spoke with Kim gilbert inside lab for assistance with recollect on all kc6 blood cultures. states she in on her way. 08:00 Reassessment: Patient appears in no apparent distress at this time. No changes from kc6 previously documented assessment. Patient and/or family updated on plan of care and expected duration. Pain level reassessed. Patient is alert, oriented x 3, equal unlabored respirations, skin warm/dry/pink. 08:10 Reassessment: spoke with Wali from inside lab. stated Kim is on the floor right kc6 now and if she cannot find her she will come herself. 08:45 Reassessment: JACQUELINE Mckinnon at bedside speaking with pt about admission. kc6 10:49 Reassessment: attempted to call report to 2nd floor. community services coordinator states that nurse kc6 Alyssa is medicated a patient and will call me back. 11:20 Reassessment: report given by Sandy FRANKLIN. iw Vital Signs: 05:40 BP 188 / 57; Pulse 75; Resp 22 S; Temp 98.7(O); Pulse Ox 98% on 4 lpm NC; Weight 99.79 as6 kg (R); Height 5 ft. 0 in. (R); Pain 0/10; 07:39 BP 174 / 80; Pulse 81; Resp 25 S; Pulse Ox 98% on 3 lpm NC; kc6 08:42 BP 170 / 90 LA Sitting (man/lg); Pulse 82; Resp 17 S; Pulse Ox 98% on 3 lpm NC; kc6 05:40 Body Mass Index 42.97 (99.79 kg, 152.4 cm) as6 05:40 Pain Scale: Adult as6 ED Course: 05:27 Patient arrived in ED. ag3 05:41 Arm band placed on. as6 05:43 Triage completed. as6 05:44 Korey Ng MD is Attending Physician. sp4 05:57 Supriya Garcia, RN is Primary Nurse. lg3 06:14 Patient has correct armband on for positive identification. Placed in gown. Bed in low lg3 position. Call light in reach. Side rails up X 1. Client placed on continuous cardiac and pulse oximetry monitoring. NIBP monitoring applied. sleeve maker on. Door closed. Noise minimized. Warm blanket given. Family accompanied patient. 06:14 Oxygen administration via nasal cannula \\T\\ 3L/min. lg3 06:23 XRAY CXR (1 view) In Process Unspecified. EDMS 06:30 Inserted saline lock: 20 gauge in left forearm, using aseptic technique. Blood rv collected. 07:00 Report received from Jorge RN \\T\\ Santhosh RN. kc6 07:16 Attending Physician role handed off by Korey Ng MD rn 07:16 Tim Flannery MD is Attending Physician. rn 07:17 Attending Physician role handed off by Tim Flannery MD sp4 07:17 Korey Ng MD is Attending Physician. sp4 07:23 Attending Physician role handed off by Korey Ng MD rn 07:23 Tim Flannery MD is Attending Physician. rn 08:15 Inserted saline lock: 22 gauge in right antecubital area, using aseptic technique. iw Blood collected. 08:33 Tnony Flannery MD is Hospitalizing Provider. rn 08:33 Sean Perez MD is Hospitalizing Provider. rn 09:44 Thorax Wo Con In Process Unspecified. EDMS 10:49 No provider procedures requiring assistance completed. kc6 11:20 Patient admitted, IV remains in place. kc6 Administered Medications: 06:57 Drug: Albuterol Inhalation 2.5 mg Route: Inhalation; rv 06:58 Drug: MethylPrednisoLONE IVP 120 mg Route: IVP; Site: left forearm; rv 08:43 Follow up: Response: No adverse reaction kc6 07:10 Drug: Albuterol Inhalation 2.5 mg Route: Inhalation; kc6 07:25 Drug: Albuterol Inhalation 2.5 mg Route: Inhalation; kc6 08:44 Follow up: Response: No adverse reaction kc6 08:09 Drug: Furosemide IVP 40 mg Route: IVP; Site: left forearm; kc6 08:44 Follow up: Response: No adverse reaction kc6 08:40 Drug: Rocephin - Rocephin (cefTRIAXone) IVPB 1 grams Route: IVPB; Infused Over: 30 kc6 mins; Site: right forearm; 10:44 Follow up: Response: No adverse reaction; IV Status: Completed infusion kc6 08:40 Drug: Zithromax IVPB 500 mg Route: IVPB; Infused Over: 1 hrs; Site: right forearm; kc6 10:45 Follow up: Response: No adverse reaction; IV Status: Completed infusion; IV Intake: kc6 250ml Medication: 11:16 VIS not applicable for this client. kc6 Intake: 10:45 IV: 250ml; Total: 250ml. kc6 Outcome: 08:35 Decision to Hospitalize by Provider. rn 11:20 Condition: stable kc6 11:20 Admitted to Med/surg accompanied by tech, via stretcher, room 204, with oxygen, with kc6 chart, Report called to RIGOBERTO Shah 11:20 Instructed on the need for admit. 11:31 Patient left the ED. kc6 Signatures: Dispatcher [employer] EDMS Jennifer Tiwari, RN Tim Lorenz MD MD rn Vicente, Ronaldo RN RN Nell Watters ag3 Supriya Garcia RN RN lg3 Edgar Cortes RN RN as6 Sandy Spangler RN RN kc6 Korey Ng MD MD sp4 Corrections: (The following items were deleted from the chart) 05:43 05:40 BP 188 / 57; Pulse 75bpm; Resp 22bpm; Spontaneous; Pulse Ox 98% RA; Temp 98.7F as6 Oral; 99.79 kg Reported; Height 5 ft. 0 in. Reported; BMI: 42.9; Pain 0/10, Adult; as6 08:57 08:42 Pulse 82bpm; Resp 17bpm; Spontaneous; Pulse Ox 98% 3 lpm Nasal Cannula; kc6 kc6 11:27 11:00 Reassessment: report given by Sandy FRANKLIN [facility] 11:30 11:16 Condition: stable kc6 kc6 13:01 11:00 Reassessment: report given by Sandy FRANKLIN [facility]
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
[2023-04-17] MEDS ORDERED: TRAMADOL HCL 50 MG TAB PO PRN (09:20)
[2023-04-17] MEDS ORDERED: ACETAMINOPHEN 325 MG TABLET PO PRN (09:20)
[2023-04-17] MEDS ORDERED: ONDANSETRON 4 MG/2 ML VIAL IV PRN (09:24)
--- NOTE | 2023-04-17 09:28 | P.HP ---
Certification for Inpatient Patient admitted to: Inpatient With expected LOS: >2 Midnights Patient will require the following post-hospital care: None Practitioner: I am a practitioner with admitting privileges, knowledge of patient current condition, hospital course, and medical plan of care. Services: Services provided to patient in accordance with Admission requirements found in Title 42 Section 412.3 of the Code of Federal Regulations Patient History Date of Service: 04/17/23 Reason for admission: Shortness of breath History of Present Illness: Patient is a 77-year-old female with a past medical history significant for CHF, COPD, hypertension, hypothyroidism, aortic aneurysm, bipolar disorder, asthma who presents with complaint shortness of breath that has been ongoing for the past 1 week. Patient reported associated signs and symptoms of cough and headache. Patient denies any other signs or symptoms. Symptoms are aggravated or relieved by nothing. Patient decided to present to the hospital due to worsening symptoms. Of note, patient is on home O2 therapy at 3 L/min. Allergies No Known Drug Allergies Allergy (Verified 09/22/19 17:26) Unknown Home Medications: Divalproex Sodium [Depakote] 500 mg PO BID 11/27/14 Pravastatin Sodium [Pravachol] 20 mg PO BEDTIME 11/27/14 Omeprazole [Prilosec] 40 mg PO DAILY 05/25/15 Amlodipine [Norvasc*] 5 mg PO DAILY 06/11/18 Levothyroxine Sodium [Levoxyl] 100 mcg PO XPLNP2WL 06/11/18 Albuterol Sulfate [Proair Hfa] 1 - 2 puff IH Q4HP PRN 09/22/19 Solifenacin Succinate 1 tab PO DAILY 09/22/19 Ergocalciferol (Vitamin D2) [Drisdol] 50,000 unit PO EVERY 7TH DAY #8 capsule 09/23/19 Guaifenesin [Mucinex] 600 mg PO BID 7 Days #14 04/12/22 Fluticasone/Umeclidin/Vilanter [Trelegy Ellipta 100-62.5-25] 1 puff IH DAILY 09/02/22 Metoprolol Succinate [Toprol Xl*] 50 mg PO BID 6AM 6PM 09/02/22 Quetiapine Fumarate [Seroquel] 25 mg PO BEDTIME 12/17/22 Furosemide [Lasix*] 40 mg PO DAILY #30 tab 12/20/22 Losartan Potassium [Cozaar*] 100 mg PO DAILY 12/20/22 Spironolactone [Aldactone*] 25 mg PO BID #60 tab 12/20/22 predniSONE [Deltasone*] 10 mg PO BID #10 tab 12/20/22 traMADol HCL [Ultram*] 50 mg PO Q6H PRN #12 tab 12/20/22 - Past Medical/Surgical History Diabetic: No -: COPD -: HTN -: BRONCHITIS -: EMPHYSEMA -: HLD -: BIPOLAR DISORDER -: CLAUSTROPHOBIA -: SLEEP APNEA -: HYPOTHYROIDISM -: GERD -: CHF -: Arthritis -: APPY -: LILI Psychosocial/ Personal History: lives at home by herself - Family History Mother -: Heart disease, Lung disease Father -: Cancer Brother -: Lung disease, Cancer Sister -: Lung disease, Cancer Notes: Melanoma - Social History Smoking Status: Former smoker Alcohol use: No CD- Drugs: No Caffeine use: Yes Place of Residence: Home Review of Systems General: Unremarkable Eyes: Unremarkable ENT: Unremarkable Respiratory: Cough, Shortness of Breath, Wheezing Cardiovascular: Unremarkable Gastrointestinal: Unremarkable Genitourinary: Unremarkable Musculoskeletal: Unremarkable Integumentary: Unremarkable Neurological: Other (Headache) Lymphatics: Unremarkable Physical Examination - Physical Exam General: Alert, Oriented x3, Cooperative, Mild distress HEENT: Atraumatic, PERRLA Neck: Supple, JVD not distended Respiratory: Diminished, Expiratory wheezes Cardiovascular: No edema, Normal S1 S2 Capillary refill: <2 Seconds Gastrointestinal: Normal bowel sounds, Soft and benign, No guarding Musculoskeletal: No clubbing, No swelling Integumentary: No rashes, No breakdown, No significant lesion Neurological: Normal speech, Normal tone, Normal affect Lymphatics: No axilla or inguinal lymphadenopathy - Studies Laboratory Data (last 24 hrs) 04/17/23 04/17/23 06:30 06:30 WBC 8.50 Hgb 11.1 L Hct 33.6 L Plt Count 332 Sodium 138 Potassium 4.0 BUN 14 Creatinine 1.22 H Glucose 99 Magnesium 1.9 Total Bilirubin 0.5 AST 17 ALT 17 Alkaline Phosphatase 120 H Lipase 17 Assessment and Plan - Plan -Acute on chronic diastolic CHF exacerbation. Chest x-ray indicates mild CHF. BNP is 2576. Continue diuresis with Lasix. Daily weight and strict I/O. --Acute on chronic COPD exacerbation. Continue neb treatment with Atrovent\albuterol and O2 therapy. Continue home medications. --Acute on chronic respiratory failure with hypoxia. Secondary to CHF versus COPD exacerbation. Continue current treatment therapy. --Moderate persistent asthma with acute exacerbation. Continue current treatment regimen. --Hyperlipidemia. Continue statin. --Hypertension. Poorly controlled. Continue home medications and hydralazine as needed. -- Hypothyroidism. Continue Synthroid. --GERD. Continue Protonix. --Bipolar disorder. Continue Seroquel. -- Aortic aneurysm. We will keep blood pressure controlled. Continue aspirin and BP medications. -- Class III obesity. Likely secondary to excess calories intake. Patient counseled on weight reduction, diet and excise therapy. --CKD 3A. Stable. We will continue to monitor renal functions. --DVT prophylaxis with Lovenox subQ. Discharge Plan: Home Plan to discharge in: Greater than 2 days - Advance Directives Does patient have a Living Will: No Does patient have a Durable POA for Healthcare: No - Code Status/Comfort Care Code Status Assessed: Yes Physician Review: Patient Assessed, Agree with Above Assessment and Plan Critical Care: No
--- NOTE | 2023-04-17 10:09 | RAD REPORT ---
EXAM DESCRIPTION: CT - Thorax Wo Con CLINICAL HISTORY: Chest pain R O PNA COMPARISON: Chest For Pe Angio dated 01/28/2023; Chest Single View dated 04/17/2023 FINDINGS: The lungs are mildly emphysematous with mild ground-glass opacities suggesting interstitia l pulmonary edema. Mild atelectasis is present both posterior lung bases. No focal infiltrate is seen to suggest pneumonia. No pleural thickening or pleural effusion. No pneumothorax. Thoracic aortic ar ch is dilated, unchanged measuring up to 6 cm. Full assessment is limited by lack of IV contrast mate rial. No axillary, mediastinal or hilar adenopathy. No concerning bony finding. Cholecystectomy. All CT scans are performed using dose optimization technique as appropriate and may include automated exposure control or mA/KV adjustment according to patient size. IMPRESSION: No focal infiltrate/ consolidation to suggest pneumonia.
[2023-04-17] MEDS: ALBUTEROL 2.5 MG/3 ML NEB SOL NEB SCH ×2 (13:50→19:20)
[2023-04-17] MEDS: IPRATROPIUM BROM 0.5MG/2.5ML NEB SCH ×2 (13:50→19:20)
[2023-04-17 13:53] LABS: Specific Gravity 1.007 (1.005-1.030); Transitional Epithelial <5 /HPF (None Seen); Urine Bacteria <20 /HPF (<20); Urine Bilirubin NEGATIVE (Negative); Urine Blood Negative (Negative); Urine Clarity Clear (Clear); Urine Color Colorless (Yellow); Urine Glucose NEGATIVE (Negative); Urine Protein NEGATIVE (Negative); Urine RBC <5 /HPF (None Seen); Urine Urobilinogen Normal (Normal)
[2023-04-17] MEDS: HYDRALAZINE HCL 20 MG/ML VIAL IV ONE ×2 (16:31)
[2023-04-17] MEDS: FUROSEMIDE 40 MG/4 ML VIAL IV SCH (16:31)
[2023-04-17] MEDS ORDERED: QUETIAPINE 25 MG TAB PO SCH (22:22)
[2023-04-18] MEDS: ALBUTEROL 2.5 MG/3 ML NEB SOL NEB SCH ×5 (01:20→20:00)
[2023-04-18] MEDS: IPRATROPIUM BROM 0.5MG/2.5ML NEB SCH ×4 (01:20→20:00)
[2023-04-18 03:15] LABS: Absolute Lymphocytes (CBC) 1.2 K/uL (0.7-4.9); Hematocrit 33.2 % (36.0-45.0); Lymphocytes % 11.2 % (15.3-44.8); MCV 90.7 fL (80-100); RBC Red Blood Cell Count 3.66 M/uL (3.86-4.86)
[2023-04-18 04:27] VITALS: BMI 42.3
[2023-04-18] MEDS: FUROSEMIDE 40 MG/4 ML VIAL IV SCH (09:31)
[2023-04-18] MEDS: ENOXAPARIN 40 MG/0.4 ML SQ SCH (09:31)
[2023-04-18] MEDS: ASPIRIN 81 MG CHEWABLE TABLET PO SCH (09:32)
--- NOTE | 2023-04-18 11:32 | P.CNS ---
Date of Consult: 04/18/23 Reason for Consult: COPD exacerbation Chief Complaint: Shortness of breath History of Present Illness: Patient is 77 years of age admitted with worsening shortness of breath cough congestion past week complaining of a bad cough. In the hospital patient has C OPD uses oxygen at home Allergies No Known Drug Allergies Allergy (Verified 09/22/19 17:26) Unknown Home Medications: Divalproex Sodium [Depakote] 500 mg PO BID 11/27/14 Pravastatin Sodium [Pravachol] 20 mg PO BEDTIME 11/27/14 Omeprazole [Prilosec] 40 mg PO DAILY 05/25/15 Amlodipine [Norvasc*] 5 mg PO DAILY 06/11/18 Levothyroxine Sodium [Levoxyl] 100 mcg PO [id number] 06/11/18 Albuterol Sulfate [Proair Hfa] 1 - 2 puff IH Q4HP PRN 09/22/19 Solifenacin Succinate 1 tab PO DAILY 09/22/19 Guaifenesin [Mucinex] 600 mg PO BID 7 Days #14 04/12/22 Fluticasone/Umeclidin/Vilanter [Trelegy Ellipta 100-62.5-25] 1 puff IH DAILY 09/02/22 Metoprolol Succinate [Toprol Xl*] 50 mg PO BID 6AM 6PM 09/02/22 Quetiapine Fumarate [Seroquel] 25 mg PO BEDTIME 12/17/22 Furosemide [Lasix*] 40 mg PO DAILY #30 tab 12/20/22 Losartan Potassium [Cozaar*] 100 mg PO DAILY 12/20/22 Spironolactone [Aldactone*] 25 mg PO BID #60 tab 12/20/22 predniSONE [Deltasone*] 10 mg PO BID #10 tab 12/20/22 Atorvastatin Calcium 1 tab PO DAILY 04/17/23 Potassium Oral Tab [Klor-Con 10 mEq Tab*] 20 meq PO DAILY 04/17/23 Sacubitril/Valsartan [Entresto 49 mg-51 mg Tablet] 1 tab PO BID 04/17/23 - Past Medical/Surgical History Diabetic: No -: COPD -: HTN -: BRONCHITIS -: EMPHYSEMA -: HLD -: BIPOLAR DISORDER -: CLAUSTROPHOBIA -: SLEEP APNEA -: HYPOTHYROIDISM -: GERD -: CHF -: Arthritis -: APPY -: LILI Psychosocial/ Personal History: lives at home by herself - Family History Mother Medical History: Heart disease, Lung disease Father Medical History: Cancer Brother Medical History: Lung disease, Cancer Sister Medical History: Lung disease, Cancer Notes: Melanoma - Social History Smoking Status: Former smoker Alcohol use: No CD- Drugs: No Caffeine use: Yes Place of Residence: Home Review of Systems 10-point ROS is otherwise unremarkable General: Weakness Respiratory: Cough, Shortness of Breath Physical Examination Temp Pulse Resp BP Pulse Ox 97.6 F 74 18 127/49 L 100 04/18/23 08:00 04/18/23 08:00 04/18/23 08:00 04/18/23 08:00 04/18/23 08:00 General: Alert, In no apparent distress, Oriented x3 HEENT: Other Respiratory: Expiratory wheezes Cardiovascular: No edema, Regular rate/rhythm, Normal S1 S2 Capillary refill: >2 Seconds Gastrointestinal: Soft and benign Laboratory Data (last 24 hrs) 04/17/23 05:51 PT Cancelled INR Cancelled APTT Cancelled - Problems (1) COPD (chronic obstructive pulmonary disease) Onset Date: 05/25/15 Current Visit: No Status: Acute Plan: Patient is 77 years of age admitted with COPD exacerbation the scan is negative creatinine is mildly elevated BNP is also elevated signs and sats satisfactory/Add pred hx of GD 1 daistolic dysfunction reduce Lasix resume spironolactone other home meds possible discharge a.m. Qualifiers: COPD type: COPD with acute exacerbation Qualified Code(s): J44.1 - Chronic obstructive pulmonary disease with (acute) exacerbation
--- NOTE | 2023-04-18 12:59 | P.PN ---
Subjective Date of Service: 04/18/23 Chief Complaint: Shortness of breath No acute events overnight. She reports that her breathing is mildly improved compared to yesterday. She denies any chest pain, palpitations, abdominal pain, or nasuea/vomiting. Review of Systems 10-point ROS is otherwise unremarkable Respiratory: Cough, Shortness of Breath, Wheezing Physical Examination - Vital Signs Temperature: 97.6 F Blood Pressure: 127/49 Pulse: 74 Respirations: 18 Pulse Ox (%): 100 - Physical Exam General: Alert, In no apparent distress, Oriented x3 HEENT: Atraumatic, Mucous membr. moist/pink, Sclerae nonicteric Neck: JVD distended (minimal) Respiratory: Diminished, Expiratory wheezes Cardiovascular: Regular rate/rhythm, Normal S1 S2, No gallops, No rubs, No mu rmurs, Edema (1+ BLE) Gastrointestinal: Normal bowel sounds, Soft and benign, Non-distended, No tenderness, No rebound, No guarding Musculoskeletal: No clubbing Integumentary: No rashes Neurological: Normal speech, Normal affect - Studies Laboratory Data (last 24 hrs) 04/17/23 05:51 PT Cancelled INR Cancelled APTT Cancelled Assessment And Plan - Plan # Acute on Chronic Decompensated Diastolic Congestive Heart Failure with Preserved Ejection Fraction - Consult Cardiology and spoke with Dr. Flores - recommendations appreciated - Diuresis with IV furosemide for today - Continue spironolactone - NT-Pro BNP = 2,576 - Daily weights - Strict I/O - Cardiac diet, 1.5 L fluid restriction, 2 g Na restriction # Acute Chronic Obstructive Pulmonary Disease Exacerbation # Chronic Respiratory Failure on Intermittent Home Oxygen (3 L NC) # Asthma - Evaluation thus far: - Physical exam = wheezing throughout - Chest x-ray = "mild CHF." - CT chest = "no focal infiltrate/ consolidation to suggest pneumonia." - Plan: - Consult Pulmonology - recommendations appreciated - Steroids + bronchodilators per Pulm - Consulted Respiratory Therapy - Supplemental oxygen to maintain SpO2 > 92% - Assess inhaler technique one improved from COPD exacerbation # Hypertension # Thoracic Aortic Aneurysm - Reconcile home medications once verified - PRN hydralazine for SBP > 160 mmHg # Hypothyroidism - Reconcile home medications once verified # Bipolar Disorder - Reconcile home medications once verified # Psoriasis - Reconcile home medications once verified Sean Perez M.D.
[2023-04-18] MEDS: predniSONE 20 MG TAB PO SCH ×2 (13:25→20:36)
--- NOTE | 2023-04-18 17:34 | EKG ---
Test Date: 2023-04-17 Test Time: 17:47:34 Service Order Dispatcher Chief: JASBIR MEASUREMENT RESULTS: Intervals: Rate: 97 [place]: 188 QRSD: 80 QT: 386 QTc: 490 [place]: P: [place]: 188 QRS: 50 T: 213 INTERPRETIVE STATEMENTS: Normal sinus rhythm ST & T wave abnormality, consider inferolateral ischemia Prolonged QT Abnormal ECG Compared to ECG 04/17/2023 06:10:40 ST (T wave) deviation now present Possible ischemia now present Prolonged QT interval now present Sinus arrhythmia no longer present Electronically Signed On 04-18-23 17:31:39 CDT by Davy Flores
--- NOTE | 2023-04-18 17:39 | EKG ---
Test Date: 2023-04-17 Test Time: 06:10:40 Hospital Insurance Clerk: [place] MEASUREMENT RESULTS: Intervals: Rate: 71 MT: 156 QRSD: 82 QT: 420 QTc: 456 [place]: P: 49 MT: 156 QRS: 13 T: 36 INTERPRETIVE STATEMENTS: Normal sinus rhythm with sinus arrhythmia Normal ECG Compared to ECG 01/28/2023 14:15:43 Atrial premature complex(es) no longer present Junctional rhythm no longer present ST (T wave) deviation no longer present Electronically Signed On 04-18-23 17:34:40 CDT by Davy Flores
[2023-04-18] MEDS: SACUBITRIL/VALSARTAN 49/51 MG TAB PO SCH (18:30)
[2023-04-18] MEDS: METOPROLOL TAR 50 MG TAB PO SCH (20:36)
[2023-04-18] MEDS: SPIRONOLACTONE 25 MG TABLET PO SCH ×2 (20:36→21:50)
[2023-04-18] MEDS: DIVALPROEX DR 500MG TAB PO SCH (20:36)
[2023-04-18 20:55] VITALS: O2SAT 99
[2023-04-18] MEDS ORDERED: QUETIAPINE 100MG TAB PO SCH (21:00)
[2023-04-19] MEDS: IPRATROPIUM BROM 0.5MG/2.5ML NEB SCH ×3 (01:57→14:12)
[2023-04-19] MEDS: ALBUTEROL 2.5 MG/3 ML NEB SOL NEB SCH ×3 (01:58→14:12)
[2023-04-19 03:35] LABS: Potassium 4.8 mEq/L (3.5-5.1)
[2023-04-19] MEDS ORDERED: LEVOTHYROXINE SOD 0.1 MG TAB PO SCH (06:00)
--- NOTE | 2023-04-19 08:56 | P.DS ---
Admission Date: 04/17/23 Discharge Date: 04/19/23 Disposition: ROUTINE DISCHARGE Discharge Condition: GOOD Reason for Admission: Shortness of breath Consultations: 1. Cardiology 2. Pulmonology Hospital Course: DIAGNOSES: # Acute on Chronic Decompensated Diastolic Congestive Heart Failure with Preserved Ejection Fraction # Acute Chronic Obstructive Pulmonary Disease Exacerbation # Chronic Respiratory Failure on Intermittent Home Oxygen (3 L NC) # Asthma # Hypertension # Thoracic Aortic Aneurysm # Hypothyroidism # Bipolar Disorder # Psoriasis HOSPITAL COURSE: Ms. Breanne Montes De Oca is a pleasant 77 year old female with a past medical history significant for chronic respiratory failure on 3 L nasal cannula secondary to chronic obstructive pulmonary disease, chronic diastolic congestive heart failure, hypothyroidism, and bipolar disorder who was admitted to the [facility] on 04/17/2023 for an acute COPD and CHF exacerbation. She was admitted to the Medicine service. Upon further evaluation, her chest x- ray revealed, "mild CHF." Her CT chest revealed, "no focal infiltrate/ consolidation to suggest pneumonia." Cardiology and Pulmonolgy were consulted and she was evaluated by Dr. Flores and Dr. Busch, respectively. She was treated with bronchodilators, steroids, and IV furosemide. Over the course of her hospitalization, her symptoms improved significantly. This morning, her respiratory status has improved significantly and stated that she wishes to go home. On 04/19/2023, she was seen on morning rounds and deemed medically stable for discharge. She was discharged with instructions to schedule follow-up appointments with her PCP (SAULO Laguna), with Cardiology (Dr. Flores), and with Pulmonary Medicine (Dr. Busch). She was provided a prescription for prednisone. She was given the opportunity to ask questions and reported no further questions. Furthermore, all questions were answered to the best of my ability. A copy of this discharge summary will be sent to the above providers to facilitate continuity of care. Today, I personally spent 25 minutes on her case, of which greater than 50% of the time was spent in patient education, counseling, and coordination of care as described above. Vital Signs/Physical Exam: Temp Pulse Resp BP Pulse Ox 97.8 F 70 16 133/61 98 04/19/23 04:00 04/19/23 04:00 04/19/23 04:00 04/19/23 04:00 04/19/23 04:00 General: Alert, In no apparent distress, Oriented x3 HEENT: Atraumatic, Mucous membr. moist/pink, Sclerae nonicteric Neck: JVD not distended Respiratory: Clear to auscultation bilaterally, Normal air movement Cardiovascular: No edema, Regular rate/rhythm, Normal S1 S2, No gallops, No rubs, No murmurs Gastrointestinal: Normal bowel sounds, Soft and benign, Non-distended, No tenderness, No rebound, No guarding Musculoskeletal: No clubbing Integumentary: No rashes Neurological: Normal speech, Normal affect Laboratory Data at Discharge: WBC 11.00 thou/uL (4.3-10.9) H 04/18/23 02:28 Hgb 11.0 g/dL (12.0-15.0) L 04/18/23 02:28 Hct 33.2 % (36.0-45.0) L 04/18/23 02:28 Plt Count 331 thou/uL (152-406) 04/18/23 02:28 PT Cancelled 04/17/23 05:51 INR Cancelled 04/17/23 05:51 APTT Cancelled 04/17/23 05:51 Sodium 140 mEq/L (136-145) 04/19/23 02:21 Potassium 4.8 mEq/L (3.5-5.1) D 04/19/23 02:21 BUN 27 mg/dL (7-18) H 04/19/23 02:21 Creatinine 1.26 mg/dL (0.55-1.02) H 04/19/23 02:21 Glucose 125 mg/dL (74-106) H 04/19/23 02:21 Phosphorus 3.7 mg/dL (2.5-4.9) 04/17/23 06:30 Magnesium 1.9 mg/dL (1.6-2.4) 04/17/23 06:30 Magnesium Cancelled 04/17/23 06:30 Total Bilirubin 0.5 mg/dL (0.2-1.0) 04/17/23 06:30 AST 17 U/L (15-37) 04/17/23 06:30 ALT 17 U/L (13-56) 04/17/23 06:30 Alkaline Phosphatase 120 U/L (45-117) H 04/17/23 06:30 Lipase 17 U/L (13-75) 04/17/23 06:30 Home Medications: Divalproex Sodium [Depakote] 500 mg PO BID 11/27/14 Levothyroxine Sodium [Levoxyl] 100 mcg PO [id number] 06/11/18 Albuterol Sulfate [Proair Hfa] 1 - 2 puff IH Q4HP PRN 09/22/19 Quetiapine Fumarate [Seroquel] 100 mg PO BEDTIME 12/17/22 Furosemide [Lasix*] 40 mg PO DAILY #30 tab 12/20/22 Sacubitril/Valsartan [Entresto 49 mg-51 mg Tablet] 1 tab PO BID 04/17/23 Atorvastatin Calcium 40 mg PO DAILY 04/18/23 Lamotrigine [Lamictal] 25 mg PO DAILY 04/18/23 Metoprolol Tartrate 50 mg PO BID 04/18/23 Nabumetone 750 mg PO BID 04/18/23 Pantoprazole [Protonix Tab*] 40 mg PO DAILY 04/18/23 Spironolactone 25 mg PO BID #60 tab 04/19/23 predniSONE [Prednisone*] 20 mg PO BID 5 Days #10 tab 04/19/23 New Medications: predniSONE [Prednisone*] 20 mg PO BID 5 Days #10 tab Spironolactone 25 mg PO BID #60 tab Physician Discharge Instructions: PROBLEM: COPD GOAL: Clear understanding of disease process INSTRUCTIONS: Ok to discharge home Follow up with SAULO Laguna in 3-5 days Follow up with Dr. Busch in 5-7 days Follow up with Dr. Flores in 5-7 days Take new medication as prescribed Contact physician or return to ER for any complications or concerns Call [phone] for any questions regarding hospital stay Diet: Heart healthy Activity: As tolerated E-script sent to [facility] in [place] Diet: AHA Activity: Ad jessica Followup: Zeeshan Busch MD [ACTIVE - CAN ADMIT] - RAMAKRISHNA LAGUNA [Primary Care Provider] - Davy Flores MD [ACTIVE - CAN ADMIT] - Time spent managing pt's care (in minutes): 25
[2023-04-19] MEDS: SPIRONOLACTONE 25 MG TABLET PO SCH (08:58)
[2023-04-19] MEDS: SACUBITRIL/VALSARTAN 49/51 MG TAB PO SCH (08:58)
[2023-04-19] MEDS: DIVALPROEX DR 500MG TAB PO SCH (08:59)
[2023-04-19] MEDS: predniSONE 20 MG TAB PO SCH (08:59)
[2023-04-19] MEDS: METOPROLOL TAR 50 MG TAB PO SCH (08:59)
[2023-04-19] MEDS: ASPIRIN 81 MG CHEWABLE TABLET PO SCH (08:59)
[2023-04-19] MEDS ORDERED: ATORVASTATIN 40 MG TAB PO SCH (09:00)
[2023-04-19] MEDS ORDERED: SPIRONOLACTONE 25 MG TABLET PO SCH (09:00)
[2023-04-19] MEDS ORDERED: lamoTRIgine 25 MG TAB PO SCH (09:00)
[2023-04-19] MEDS ORDERED: FUROSEMIDE 40 MG/4 ML VIAL IV SCH (09:00)
[2023-04-19] MEDS: ENOXAPARIN 40 MG/0.4 ML SQ SCH (09:01)
[2023-04-19] MEDS ORDERED: FAMOTIDINE 20 MG TAB PO SCH (12:00)
[2023-04-19 16:49] VITALS: BP 144/58; TEMP 97.3
[2023-04-20] MEDS ORDERED: FAMOTIDINE 20 MG TAB PO SCH (09:00)
--- NOTE | 2023-04-21 17:52 | CON ---
Date of Consultation: 04/18/2023 Reason For Consultation: CHF. History Of Present Illness: A 77-year-old female, history of CHF, COPD, hypertension, bipolar disord er, aortic aneurysm, presented to the emergency room with shortness of breath, orthopnea, and lower e xtremity edema. No nausea, vomiting, diarrhea, or diaphoresis. Past Medical History: As outlined above in HPI. Medications: Refer to reconciliation sheet for detailed list. Allergies: NO KNOWN DRUG ALLERGIES. Family History: No premature coronary artery disease or cancer. Social History: She does not smoke or drink. Does not use any drugs. Review of Systems: All systems reviewed and they were negative except for what mentioned in HPI. Physical Examination: Vital Signs: Reviewed. Head and Neck: Pupils are equal, reactive to light. Intact eye movements. No cervical lymphadenopa thy. Neck is supple. Thyroid is not enlarged. Lungs: Decreased breathing sounds with scattered wheezing and no accessory muscle use or muscle retr action. Heart: Regular rate and rhythm. No extra sounds. Abdomen: Soft, nontender. Bowel sounds positive. No organomegaly. No masses or hernia. No rigidit y or rebound. Extremities: No significant edema, clubbing, cyanosis. Intact pulses. Skin: No rash. Neurologic: Alert, awake, oriented x3. No acute focal deficits appreciated. Lymph Nodes: No cervical or axillary lymphadenopathy. Investigations: BUN is 21, creatinine 1.29, and NT-proBNP was 2576. Assessment/recommendation: 1.Shortness of breath, likely due to chronic obstructive pulmonary disease exacerbation and mild com ponent of congestive heart failure exacerbation and the chest x-ray showed mild Congestive heart fail ure. Agree with IV diuresis. Monitor BUN, creatinine, electrolytes. 2.Chronic obstructive pulmonary disease with exacerbation, getting gradually better. Continue curre nt management. 3.Hypertension. Blood pressure is acceptable. Continue current management. SR/MODL Voice ID: [id number] Report ID: [id number]
--- NOTE | 2023-04-21 18:21 | PN ---
Date of Progress Note: 04/19/2023 Subjective: Seen by bedside. Doing better. No significant shortness of breath. Review of Systems: No chest pain or significant shortness of breath. No nausea, vomiting, or diarrhea. All other syste ms were reviewed, they were negative. Objective: Vital Signs: Reviewed. Head and Neck: Pupils are equal, reactive to light. Intact eye movements. No JVD. No cervical lym phadenopathy. Neck is supple. Thyroid is not enlarged. Lungs: Clear to auscultation bilaterally. No rhonchi, wheezing, or crackles. No accessory muscle use or muscle retraction. Heart: Regular rate and rhythm. No extra sounds. Abdomen: Soft. Bowel sounds positive. No organomegaly. No masses or hernia. No rigidity or rebou nd. Extremities: No edema, clubbing, or cyanosis. Intact pulses. Skin: No rashes. Neurologic: Alert, awake, oriented x3. No acute focal deficits appreciated. Investigations: BUN 27, creatinine 1.26, and hemoglobin is 11. Assessment And Recommendations: 1.Shortness of breath due to a combination of chronic obstructive pulmonary disease and heart failur e exacerbation. She appears to be euvolemic, switched to oral Lasix. From Cardiology standpoint, sh e can be released. Follow up as an outpatient and to monitor her diet carefully especially sodium ri ch product. 2.Chronic obstructive pulmonary disease exacerbation, getting stable. Cardiology will sign off. Patient has improved and she can be followed up as an outpatient. SR/MODL Voice ID: [id number] Report ID: [id number]
== END 2023-04-19 16:50 | disposition home or self-care (01) | DRG 291 ==
LOC: ER 05:25 → ERHOLD 09:01 → 2ND 11:18
PROVIDERS: ADMIT Internal Medicine; ATTEND Internal Medicine
DX: I13.0 Hypertensive heart and chronic kidney disease with heart failure and stage 1 through stage 4 chronic kidney disease, or unspecified chronic kidney disease (principal); I50.33 Acute on chronic diastolic (congestive) heart failure; J96.21 Acute and chronic respiratory failure with hypoxia; J44.1 Chronic obstructive pulmonary disease with (acute) exacerbation; J45.41 Moderate persistent asthma with (acute) exacerbation; Z68.41 Body mass index [BMI] 40.0-44.9, adult; E66.01 Morbid (severe) obesity due to excess calories; N18.31 Chronic kidney disease, stage 3a; E03.9 Hypothyroidism, unspecified; I71.20 Thoracic aortic aneurysm, without rupture, unspecified; L40.9 Psoriasis, unspecified; F31.9 Bipolar disorder, unspecified; F40.240 Claustrophobia; E78.5 Hyperlipidemia, unspecified; G47.30 Sleep apnea, unspecified; K21.9 Gastro-esophageal reflux disease without esophagitis; M19.90 Unspecified osteoarthritis, unspecified site; M81.0 Age-related osteoporosis without current pathological fracture; Z99.81 Dependence on supplemental oxygen; Z71.3 Dietary counseling and surveillance; Z79.899 Other long term (current) drug therapy; Z87.891 Personal history of nicotine dependence; Z90.49 Acquired absence of other specified parts of digestive tract; Z28.310 Unvaccinated for COVID-19; Z82.49 Family history of ischemic heart disease and other diseases of the circulatory system; Z80.8 Family history of malignant neoplasm of other organs or systems
CPT/HCPCS: 36415; 71045; 71250; 80048; 80076; 81001; 82550; 83690; 83735; 83880; 84100; 84484; 85025; 87040; 93005; 94640; 96365; 96366; 96368; 96375; 99285; J0360; J0696; J1650; J1940; J2920; J7050; J7512; J7613; J7644

== ENCOUNTER 2023-09-26 07:00 | Day surgery (SDC) | payer OTHER ==
--- NOTE | 2023-09-24 09:49 | RAD REPORT ---
EXAM DESCRIPTION: RAD - Chest Pa And Lat (2 Views) - 09/24/2023 9:36 am CLINICAL HISTORY: pre op pending heart catheterization Chest pain. COMPARISON: Chest Single View dated 04/17/2023; Chest Single View dated 01/28/2023; Chest Single View d ated 12/17/2022; Chest Pa And Lat (2 Views) dated 09/02/2022 TECHNIQUE: PA and lateral views of the chest were obtained. FINDINGS: The lungs are hyperexpanded compatible with COPD. The heart is upper limit of normal in si ze. No fracture or aggressive bony process. IMPRESSION: COPD without acute process identified.
[2023-09-24 09:58] LABS: Hematocrit 37.4 % (36.0-45.0); Lymphocytes % 24.9 % (15.3-44.8); MPV 8.7 fL (7.6-11.3); Platelets 373 thou/uL (152-406); RBC Red Blood Cell Count 4.06 M/uL (3.86-4.86)
[2023-09-24 10:12] LABS: Potassium 3.8 mEq/L (3.5-5.1)
[2023-09-24 10:18] LABS: Protime INR 1.06
--- NOTE | 2023-09-24 12:18 | EKG ---
Test Date: 2023-09-24 Test Time: 10:18:10 Senior Ecologist: ANJUM MEASUREMENT RESULTS: Intervals: Rate: 57 NV: 162 QRSD: 86 QT: 460 QTc: 447 Laura: P: 65 NV: 162 QRS: 60 T: 63 INTERPRETIVE STATEMENTS: Sinus bradycardia with marked sinus arrhythmia Otherwise normal ECG Compared to ECG 04/17/2023 17:47:34 Sinus rhythm no longer present ST (T wave) deviation no longer present Possible ischemia no longer present Prolonged QT interval no longer present Electronically Signed On 09-24-23 12:18:17 FACTORY REPRESENTATIVE by Davy Flores
[2023-09-26] MEDS ORDERED: HEPARIN 5000 UNIT/ML 1 ML VIAL ONE (07:17)
[2023-09-26] MEDS ORDERED: HEPARIN 10,000 UNIT/10 ML VIAL IV ONE (07:17)
[2023-09-26] MEDS ORDERED: HEPA 1000U/500MLS 2,000 UNIT/1,000 ML BAG IV ONE (07:17)
[2023-09-26] MEDS ORDERED: VERAPAMIL HCL 10 MG/4 ML VIAL IV ONE (07:18)
[2023-09-26] MEDS ORDERED: FENTANYL CITR 100 MCG/2 ML ONE (07:18)
[2023-09-26] MEDS ORDERED: NITROGLYCERIN/D5W 25 MG/250 ML BTL IV ONE (07:18)
[2023-09-26] MEDS ORDERED: LIDOCAINE 1% 20 ML MDV ONE (07:18)
[2023-09-26] MEDS ORDERED: ATROPINE SULF 1 MG/10 ML SYR IV ONE (07:19)
[2023-09-26] MEDS ORDERED: MIDAZOLAM HCL 2 MG/2 ML INJ ONE (07:19)
[2023-09-26] MEDS ORDERED: NA CHLORIDE 0.9% 500 ML ONE (07:26)
[2023-09-26] MEDS ORDERED: TICAGRELOR 90 MG TABLET PO ONE (07:47)
[2023-09-26] MEDS ORDERED: ASPIRIN 325 MG TAB ONE (07:48)
[2023-09-26] MEDS ORDERED: CLOPIDOGREL 75 MG TABLET ONE (07:48)
--- NOTE | 2023-09-26 08:43 | OP ---
Date of Procedure: 09/26/2023 Surgeon: PRAKASH CABA Procedure Performed: Selective coronary angiogram. Indication: Chest pain with abnormal stress test. Access: Right radial artery 6-Guatemalan closed with TR band. Complications: None. Bleeding: Less than 20 mL. Description Of Procedure: After risks, benefits, alternatives were explained, patient agreed to proc edure and signed informed consent. The patient was brought into cardiac catheterization laboratory, prepped and draped in the usual sterile fashion. Then, I accessed right radial artery using Modern Masti c micropuncture kit and ultrasound guidance and placed a 6-Guatemalan slender sheath and took a 6-Guatemalan JR4 catheter into the aortic root, engaged the RCA, took standard views and exchanged for 6-Guatemalan JR 4 catheter and engaged the left main, took standard views and the sheath was removed and T R band was placed for closure with good hemostasis. Findings: 1.Left main: Very large and normal. 2.LAD: Large vessel with normal proximal segment. Mid segment has 30% stenosis. Distally, there i s 20% stenosis. Normal diagonal branches. 3.Ramus intermedius: A moderate-sized vessel and normal. 4.Left circumflex: Large and codominant with mid to distal 30% stenosis. 5.RCA: Moderate size vessel with luminal irregularities and codominant. Conclusion: Mild nonobstructive coronary artery disease. Plan: Medical management. /AVNI Voice ID: [id number] Report ID: [id number]
[2023-09-26 10:28] VITALS: BP 134/57; O2SAT 100
== END 2023-09-26 10:28 | disposition home or self-care (01) ==
LOC: CCL 07:00
PROVIDERS: ATTEND Internal Medicine
DX: I25.10 Atherosclerotic heart disease of native coronary artery without angina pectoris (principal); I71.21 Aneurysm of the ascending aorta, without rupture; I35.0 Nonrheumatic aortic (valve) stenosis; I65.23 Occlusion and stenosis of bilateral carotid arteries; I11.0 Hypertensive heart disease with heart failure; I50.32 Chronic diastolic (congestive) heart failure; E78.5 Hyperlipidemia, unspecified; J44.9 Chronic obstructive pulmonary disease, unspecified; Z79.82 Long term (current) use of aspirin; Z79.899 Other long term (current) drug therapy; Z87.891 Personal history of nicotine dependence
CPT/HCPCS: 93005; 85025; 80048; 36415; 83721; 85610; 85730; 71046; 93454; 76937; C1893; Q9966; J1644; J2001; J7040; J0461; J2250; J3010

== ENCOUNTER 2023-11-29 20:28 | Inpatient (IN) | payer OTHER ==
--- NOTE | 2023-11-29 21:43 | RAD REPORT ---
EXAM DESCRIPTION: RAD - Chest Single View - 11/29/2023 9:18 pm CLINICAL HISTORY: CONGESTION Chest pain. COMPARISON: <Comparisons> FINDINGS: Portable technique limits examination quality. Mild to moderate pulmonary edema pattern. The heart is moderately enlarged in size. No displaced frac tures. IMPRESSION: Mild to moderate CHF.
[2023-11-29 21:57] LABS: Absolute Basophils 0.1 K/uL (0-0.5); Absolute Eosinophils 0.1 K/uL (0-0.5); Absolute Lymphocytes (CBC) 1.9 K/uL (0.7-4.9); Absolute Monocytes 0.9 K/uL (0.1-1.3); Absolute Neutrophil 5.5 K/uL (1.8-8.0); Basophils % 1.4 % (0-1.3); Eosinophils % 1.3 % (0-4.4); Hematocrit 35.7 % (36.0-45.0); Hemoglobin 11.9 g/dL (12.0-15.0); Lymphocytes % 22.2 % (15.3-44.8); MCH 30.5 pg (27.0-35.0); MCHC 33.4 g/dL (32.0-36.0); MCV 91.5 fL (80-100); MPV 8.9 fL (7.6-11.3); Monocytes % 10.4 % (3.3-12.3); Neutrophils % 64.7 % (41.7-73.7); Platelets 308 thou/uL (152-406); RBC Red Blood Cell Count 3.91 M/uL (3.86-4.86); Red Cell Distribution Width 16.3 % (12.1-15.2)
[2023-11-29 22:01] LABS: PT Prothrombin Time 11.5 SECONDS (9.5-12.5); PTT, Activated Partial Thromb 27.4 SECONDS (24.3-36.9); Protime INR 1.05
[2023-11-29 22:55] LABS: Albumin 3.3 g/dL (3.4-5.0); Albumin/Globulin Ratio 0.9 (1.1-1.8); Anion Gap 6.2 mEq/L (5.0-15.0); Bilirubin Direct 0.2 mg/dL (0-0.2); Bilirubin Indirect, Calculated 0.4 mg/dL (0.2-0.8); Bilirubin Total 0.6 mg/dL (0.2-1.0); Globulin 3.5 g/dL (2.3-3.5); Magnesium 2.2 mg/dL (1.6-2.4); Potassium 4.2 mEq/L (3.5-5.1); Protein, Total 6.8 g/dL (6.4-8.2); Troponin High Sensitivity 28.8 pg/mL (<58.9)
[2023-11-29] MEDS ORDERED: METHYLPREDNISOLONE 125 MG INJ ONE (23:05)
[2023-11-29] MEDS ORDERED: LEVALBUTEROL 1.25 MG/3 ML NEB ONE (23:05)
--- NOTE | 2023-11-29 23:26 | EDPHYS ---
Physician Documentation [facility] Name: Breanne Montes De Oca Age: 78 yrs Sex: Female : 1945 Arrival Date: 11/29/2023 Time: 20:28 Bed 18 Private MD: ED Physician Korey Ng HPI: 11/28 20:33 This 78 yrs old Female presents to ER via Unassigned with complaints of sp4 Shortness Of Breath. 20:50 78-year-old female with past medical history of aortic aneurysm, arthritis, asthma, sp4 bipolar disorder, bronchitis, CHF, COPD, on home oxygen. Presents today for acute worsening of shortness of breath starting last week. Patient states she has dyspnea on exertion without chest pain but with nonproductive cough. . 23:20 Past Medical Record Review - [facility] - Findings: 1. Left main: Very large and normal. 2. sp4 LAD: Large vessel with normal proximal segment. Mid segment has 30% stenosis. Distally, there is 20% stenosis. Normal diagonal branches. 3. Ramus intermedius: A moderate-sized vessel and normal. 4. Left circumflex: Large and codominant with mid to distal 30% stenosis. 5. RCA: Moderate size vessel with luminal irregularities and codominant. Conclusion: Mild nonobstructive coronary artery disease. Plan: Medical management. SR/MODL . Historical: - Allergies: 20:39 NKDA; as6 - PMHx: 20:39 aortic aneurysm; Arthritis; Asthma; Bipolar disorder; Bronchitis; CHF; COPD; Home O2 3 as6 L NC; Hypertension; Hypothyroidism; Osteoporosis; psoriasis; Urinary incontinence; - PSHx: 20:39 Appendectomy; Cholecystectomy; as6 - Immunization history:: Adult Immunizations up to date. - Social history:: Smoking status: Patient denies any tobacco usage or history of. - Family history:: not pertinent. ROS: 20:50 Constitutional: Negative for fever, chills, and weight loss, positive shortness of sp4 breath, positive dyspnea on exertion, positive cough 20:50 All other systems are negative, Exam: 20:50 Constitutional: This is a well developed, well nourished patient who is awake, alert, sp4 and in no acute distress. Head/Face: Normocephalic, atraumatic. Eyes: Pupils equal round and reactive to light, extra-ocular motions intact. Lids and lashes normal. Conjunctiva and sclera are not injected. Cornea within normal limits. Periorbital areas with no swelling, redness, or edema. ENT: Nares patent. No nasal discharge, no septal abnormalities noted. Tympanic membranes are normal and external auditory canals are clear. Oropharynx with no redness, swelling, or masses, exudates, or evidence of obstruction, uvula midline. Mucous membranes moist. Neck: Trachea midline, no thyromegaly or masses palpated, and no cervical lymphadenopathy. Supple, full range of motion without nuchal rigidity, or vertebral point tenderness. Chest/axilla: Normal chest wall appearance and motion. Nontender with no deformity. No lesions are appreciated. Cardiovascular: Regular rate and rhythm with a normal S1 and S2. No gallops, murmurs, or rubs. Normal PMI, no JVD. No pulse deficits. Respiratory: Lungs have equal breath sounds bilaterally, clear to auscultation and percussion. No rales, rhonchi or wheezes noted. No increased work of breathing, no retractions or nasal flaring. Abdomen/GI: Soft, with normal bowel sounds. No distension or tympany. No guarding or rebound. No evidence of tenderness throughout. Back: No spinal tenderness. No costovertebral tenderness. Skin: Warm, dry with normal turgor. Normal color with no rashes, no lesions, and no evidence of cellulitis. MS/ Extremity: Pulses equal, no cyanosis. Neurovascular intact. Full, normal range of motion. Neuro: Awake and alert, GCS 15, oriented to person, place, time, and situation. Cranial nerves II-XII grossly intact. Motor strength 5/5 in all extremities. Sensory grossly intact. Psych: Awake, alert, with orientation to person, place and time. Behavior, mood, and affect are within normal limits 11/29 00:16 ECG was reviewed by the Attending Physician. EKG at 2051 sinus rhythm with sinus sp4 arrhythmia at a rate of 68, no ST elevation or depression. No ventricular ectopy Vital Signs: 11/28 20:37 Pulse 64; Resp 20 S; Temp 98.8(TE); Pulse Ox 100% on R/A; Weight 99.79 kg (R); Height 5 as6 ft. 2 in. (R); Pain 6/10; 20:37 Body Mass Index 40.24 (99.79 kg, 157.48 cm) as6 20:37 Pain Scale: Adult as6 Vinny Coma Score: 20:50 Eye Response: spontaneous(4). Motor Response: obeys commands(6). Verbal Response: sp4 oriented(5). Total: 15. MDM: 20:52 Patient medically screened. sp4 23:21 Differential diagnosis: Anemia asthma, Bronchitis CHF exacerbation, Chronic Obstructive sp4 Pulmonary Disease Psychogenic pulmonary edema. Data reviewed: vital signs, nurses notes, old medical records, lab test result(s), EKG, radiologic studies, plain films. ED course: EXAM DESCRIPTION: RAD - Chest Single View - 11/29/2023 9:18 pm CLINICAL HISTORY: CONGESTION Chest pain. COMPARISON: FINDINGS: Portable technique limits examination quality. Mild to moderate pulmonary edema pattern. The heart is moderately enlarged in size. No displaced fractures. IMPRESSION: Mild to moderate CHF.. 11/28 20:44 Order name: BMP; Complete Time: 23:16 sp4 11/28 20:44 Order name: Blood Culture Adult (2) sp4 11/28 20:44 Order name: CBC with Diff; Complete Time: 23:16 sp4 11/28 20:44 Order name: CPK; Complete Time: 23:16 sp4 11/28 20:44 Order name: D-Dimer; Complete Time: 23:16 sp4 11/28 20:44 Order name: Hepatic Function; Complete Time: 23:16 sp4 11/28 20:44 Order name: Lipase; Complete Time: 23:16 sp4 11/28 20:44 Order name: Magnesium; Complete Time: 23:16 sp4 11/28 20:44 Order name: NT PRO-BNP; Complete Time: 23:16 sp4 11/28 20:44 Order name: PT-INR; Complete Time: 23:16 sp4 11/28 20:44 Order name: Ptt, Activated; Complete Time: 23:16 sp4 11/28 20:44 Order name: Troponin HS; Complete Time: 23:16 sp4 11/28 20:45 Order name: BNP; Complete Time: 23:16 sp4 11/28 23:42 Order name: Urinalysis w/ reflexes EDMS 11/28 23:42 Order name: CBC with Automated Diff EDMS 11/28 23:42 Order name: CBC with Automated Diff EDMS 11/28 23:42 Order name: Comprehensive Metabolic Panel EDMS 11/28 23:42 Order name: Comprehensive Metabolic Panel EDMS 11/28 23:42 Order name: Troponin High Sensitivity EDMS 11/28 23:42 Order name: Troponin High Sensitivity EDMS 11/28 23:42 Order name: Troponin High Sensitivity EDMS 11/28 23:42 Order name: Troponin High Sensitivity EDMS 11/28 20:44 Order name: XRAY CXR (1 view); Complete Time: 23:16 sp4 11/28 23:46 Order name: Echo with Doppler EDMS 11/28 20:44 Order name: EKG; Complete Time: 20:45 sp4 11/28 20:44 Order name: Cardiac monitoring; Complete Time: 21:11 sp4 11/28 20:44 Order name: EKG - Nurse/Tech; Complete Time: 21:11 sp4 11/28 20:44 Order name: IV Saline Lock; Complete Time: 22:36 sp4 11/28 20:44 Order name: Labs collected and sent; Complete Time: 22:36 sp4 11/28 20:44 Order name: O2 Per Protocol; Complete Time: 22:36 sp4 11/28 20:44 Order name: O2 Sat Monitoring; Complete Time: 22:36 sp4 EC/15 00:16 Rate is 68 beats/min. Rhythm is irregular, Sinus arrythmia with PACs. QRS [place] is sp4 Normal. AL interval is normal. QRS interval is normal. QT interval is normal. No Q waves. T waves are Normal. No ST changes noted. Clinical impression: No evidence of ischemia. Interpreted by me. Reviewed by me. Administered Medications: 11/28 23:06 Drug: MethylPrednisoLONE IVP 125 mg IVP once Route: IVP; Site: left antecubital; tl4 23:58 Follow up: Response: No adverse reaction tl4 23:06 Drug: Levalbuterol Inhalation 1.25 mg Inhalation once Route: Inhalation; tl4 23:57 Follow up: Response: No adverse reaction; Wheezing diminished tl4 11/29 00:17 Drug: Furosemide IVP 40 mg IVP once; give over 2 minutes Route: IVP; Site: right tl4 forearm; 00:17 Drug: Dextromethorphan-Guaifenesin PO Liquid 10 mg-100 mg/5 mL 10 ml PO once Route: PO; tl4 00:17 Drug: Acetaminophen-Codeine PO (300 mg-30 mg) 1 tablet PO once; RASS on ADMIN: Combtv4, tl4 Very Agttd3, Agttd2, Rstlss1, AlertClm0, Drwsy-1, Lt Sdtn-2, Mod Sdtn-3, Dp Sdtn-4, UnArsble-5 Route: PO; 00:17 Drug: Levalbuterol Inhalation 1.25 mg Inhalation once Route: Inhalation; tl4 Disposition Summary: 11/29/23 23:25 Hospitalization Ordered Notes: Hospitalization Status: Inpatient Admission sp4 Provider: [facility] sp4 Condition: Stable sp4 Problem: new sp4 Symptoms: have improved sp4 Bed/Room Type: Standard sp4 Location: Intensive Care Unit(11/30/23 03:00) cg Room Assignment: 4-(11/30/23 03:00) cg Diagnosis - Acute diastolic (congestive) heart failure sp4 - Pulmonary edema, acute diastolic heart failure, COPD exacerbation sp4 Forms: - Medication Reconciliation Form sp4 - SBAR form sp4 - Leadership Thank You Letter sp4 Signatures: Dispatcher [employer] Sarahi Montenegro, RN RN Edgar Cortes RN RN as6 Korey Ng MD MD sp4 Tao Lobato RN RN tl4 Corrections: (The following items were deleted from the chart) 11/28 23: 23:25 Telemetry/MedSurg (Inpatient) sp4 cg 23:31 23:25 sp4 cg 11/29 03:00 11/28 23:31 [facility] ER HOLD cg cg 11/29 03:00 11/28 23:31 ERHOLD- cg cg
--- NOTE | 2023-11-29 23:26 | ER ---
Nurse's Notes [facility] Name: Breanne Montes De Oca Age: 78 yrs Sex: Female : 1945 Arrival Date: 11/29/2023 Time: 20:28 Bed 18 Private MD: Diagnosis: Acute diastolic (congestive) heart failure;Pulmonary edema, acute diastolic heart failure, COPD exacerbation Presentation: 11/28 20:39 Chief complaint: Patient states: "I think I have pneumonia" pt reports SOB and cough x2 as6 days. Coronavirus screen: At this time, the client does not indicate any symptoms associated with coronavirus-19. Ebola Screen: No symptoms or risks identified at this time. Initial Sepsis Screen: Does the patient meet any 2 criteria? No. Patient's initial sepsis screen is negative. Does the patient have a suspected source of infection? No. Patient's initial sepsis screen is negative. Risk Assessment: Do you want to hurt yourself or someone else? Patient reports no desire to harm self or others. Onset of symptoms was November 27, 2023. 20:39 Acuity: FIOR 3 as6 20:39 Method Of Arrival: Ambulatory as6 Triage Assessment: 20:41 General: Appears in no apparent distress. Behavior is calm, cooperative. Pain: as6 Complains of pain in chest. Respiratory: Reports shortness of breath cough that is Breath sounds with wheezes. Historical: - Allergies: 20:39 NKDA; as6 - PMHx: 20:39 aortic aneurysm; Arthritis; Asthma; Bipolar disorder; Bronchitis; CHF; COPD; Home O2 3 as6 L NC; Hypertension; Hypothyroidism; Osteoporosis; psoriasis; Urinary incontinence; - PSHx: 20:39 Appendectomy; Cholecystectomy; as6 - Immunization history:: Adult Immunizations up to date. - Social history:: Smoking status: Patient denies any tobacco usage or history of. - Family history:: not pertinent. Screenin:41 Abuse screen: Denies threats or abuse. Denies injuries from another. Nutritional as6 screening: No deficits noted. Tuberculosis screening: No symptoms or risk factors identified. Assessment: 21:30 General: Appears in no apparent distress. Behavior is calm, cooperative. Pain: Denies tl4 pain. Neuro: No deficits noted. Level of Consciousness is awake, alert, obeys commands, Oriented to person, place, time, situation, Speech is normal, Facial symmetry appears normal. Cardiovascular: Rhythm is sinus rhythm. Vital Signs: 20:37 Pulse 64; Resp 20 S; Temp 98.8(TE); Pulse Ox 100% on R/A; Weight 99.79 kg (R); Height 5 as6 ft. 2 in. (R); Pain 6/10; 20:37 Body Mass Index 40.24 (99.79 kg, 157.48 cm) as6 20:37 Pain Scale: Adult as6 Kiron Coma Score: 20:50 Eye Response: spontaneous(4). Motor Response: obeys commands(6). Verbal Response: sp4 oriented(5). Total: 15. ED Course: 20:31 Patient arrived in ED. jj6 20:33 Korey Ng MD is Attending Physician. sp4 20:37 Arm band placed on. as6 20:41 Triage completed. as6 21:11 EKG done, by technology risk intern. reviewed by Korey Ng MD. oe 21:20 XRAY CXR (1 view) In Process Unspecified. EDMS 22:05 No provider procedures requiring assistance completed. Inserted saline lock: 22 gauge pf1 in right forearm, using aseptic technique. Blood collected. 22:20 Inserted saline lock: 22 gauge in left antecubital area, using aseptic technique. Blood pf1 collected. 22:36 Blood Culture Adult (2) Sent. pf1 22:58 Tao Lobato, RN is Primary Nurse. tl4 23:06 Blood Culture Adult (2) Sent. tl4 23:24 Parish Covington MD is Hospitalizing Provider. sp4 Administered Medications: 23:06 Drug: MethylPrednisoLONE IVP 125 mg IVP once Route: IVP; Site: left antecubital; tl4 23:58 Follow up: Response: No adverse reaction tl4 23:06 Drug: Levalbuterol Inhalation 1.25 mg Inhalation once Route: Inhalation; tl4 23:57 Follow up: Response: No adverse reaction; Wheezing diminished tl4 11/29 00:17 Drug: Furosemide IVP 40 mg IVP once; give over 2 minutes Route: IVP; Site: right tl4 forearm; 00:17 Drug: Dextromethorphan-Guaifenesin PO Liquid 10 mg-100 mg/5 mL 10 ml PO once Route: PO; tl4 00:17 Drug: Acetaminophen-Codeine PO (300 mg-30 mg) 1 tablet PO once; RASS on ADMIN: Combtv4, tl4 Very Agttd3, Agttd2, Rstlss1, AlertClm0, Drwsy-1, Lt Sdtn-2, Mod Sdtn-3, Dp Sdtn-4, UnArsble-5 Route: PO; 00:17 Drug: Levalbuterol Inhalation 1.25 mg Inhalation once Route: Inhalation; tl4 Medication: 11/28 20:41 VIS not applicable for this client. as6 Outcome: 23:25 Decision to Hospitalize by Provider. sp4 11/29 00:00 Admitted to ER Hold. Please see [facility] for further documentation. jj7 03:41 Patient left the ED. pf1 Signatures: Dispatcher [employer] EDMS Srikanth Tubbs Jennifer jj6 Edgar Cortes RN RN as6 Inna Butler RN RN jj7 Peri Noguera RN RN pf1 Korey Ng MD MD sp4 Tao Lobato RN RN tl4
[2023-11-29] MEDS ORDERED: ALBUTEROL 2.5 MG/3 ML NEB SOL NEB PRN (23:38)
[2023-11-29] MEDS ORDERED: ONDANSETRON 4 MG/2 ML VIAL IV PRN (23:38)
--- NOTE | 2023-11-29 23:38 | P.HP ---
Certification for Inpatient Patient admitted to: Inpatient With expected LOS: >2 Midnights Practitioner: I am a practitioner with admitting privileges, knowledge of patient current condition, hospital course, and medical plan of care. Services: Services provided to patient in accordance with Admission requirements found in Title 42 Section 412.3 of the Code of Federal Regulations Patient History Date of Service: 11/30/23 Reason for admission: SOB History of Present Illness: 78-year-old female with a past medical history of hypertension, hyperlipidemia, hypothyroidism, GERD, COPD, emphysema, CHF, arthritis, bipolar disorder brought to ER with worsening of shortness of breath. She is also has a history of aortic aneurysm, asthma history of bronchitis, chronic hypoxic respiratory failure on home O2. She started having worsening of shortness of breath which started last week and has been progressively worsening. Denies any chest pain. Not associated with nonproductive cough. As the shortness of breath has been worsening and was brought to the ER. Denies any fever or chills. No nausea vomiting or diarrhea. No sick contacts.. She was assessed in the ER and was admitted for further management of CHF exacerbation and COPD exacerbation Last LHC showed Mild nonobstructive coronary artery diseaseand was recommended Medical management. Allergies No Known Drug Allergies Allergy (Verified 09/24/23 09:02) Unknown Home medications list reviewed: Yes Home Medications: Divalproex Sodium [Depakote] 500 mg PO BID 11/27/14 Albuterol Sulfate [Proair Hfa] 1 - 2 puff IH Q4HP PRN 09/22/19 Quetiapine Fumarate [Seroquel] 100 mg PO BEDTIME 12/17/22 Furosemide [Lasix*] 40 mg PO DAILY #30 tab 12/20/22 Atorvastatin Calcium 40 mg PO DAILY 04/18/23 Lamotrigine [Lamictal] 25 mg PO DAILY 04/18/23 Metoprolol Tartrate 50 mg PO BID 04/18/23 Pantoprazole [Protonix Tab*] 40 mg PO DAILY 04/18/23 Fluticasone/Umeclidin/Vilanter [Trelegy Ellipta 100-62.5-25] 1 each IH 11/30/23 Potassium Chloride [Klor-Con] 20 meq PO DAILY 11/30/23 Sacubitril/Valsartan [Entresto 49 mg-51 mg Tablet] 1 tab PO BID 11/30/23 - Past Medical/Surgical History Diabetic: No Past Medical History: Reviewed- Non-Contributory -: COPD -: HTN -: BRONCHITIS -: EMPHYSEMA -: HLD -: BIPOLAR DISORDER -: CLAUSTROPHOBIA -: SLEEP APNEA -: HYPOTHYROIDISM -: GERD -: CHF -: Arthritis Past Surgical History: Reviewed- Non-Contributory -: APPY -: LILI Psychosocial/ Personal History: lives at home by herself - Family History Mother -: Heart disease, Lung disease Father -: Cancer Brother -: Lung disease, Cancer Sister -: Lung disease, Cancer Notes: Melanoma - Social History Smoking Status: Never smoker Alcohol use: No CD- Drugs: No Caffeine use: Yes Review of Systems 10-point ROS is otherwise unremarkable Physical Examination - Vital Signs Temperature: 98.8 F Blood Pressure: 138/72 Pulse: 64 Respirations: 20 Pulse Ox (%): 96 - Physical Exam General: Alert, Oriented x3, Cooperative, Mild distress, Obese HEENT: Atraumatic, Normocephalic Neck: Supple, No Thyromegaly Respiratory: Diminished, Crackles/rales, Expiratory wheezes Cardiovascular: Regular rate/rhythm, Normal S1 S2, No rubs, Edema Capillary refill: <2 Seconds Gastrointestinal: Soft and benign, W/out hepatosplenomegaly, No tenderness Musculoskeletal: No clubbing, No swelling Integumentary: No rashes, No breakdown Neurological: Normal speech, Normal strength at 5/5 x4 extr, Sensation intact, Cranial nerves 3-12 intact, Normal reflexes 2+ Lymphatics: No axilla or inguinal lymphadenopathy - Studies Laboratory Data (last 24 hrs) 11/29/23 11/29/23 11/29/23 22:20 21:41 21:41 WBC 8.40 Hgb 11.9 L Hct 35.7 L Plt Count 308 PT 11.5 INR 1.05 APTT 27.4 Sodium 139 Potassium 4.2 BUN 22 H Creatinine 1.58 H Glucose 119 H Magnesium 2.2 Total Bilirubin 0.6 AST 27 ALT 21 Alkaline Phosphatase 120 H Lipase 27 Assessment and Plan - Problems (Diagnosis) (1) CHF exacerbation Current Visit: No Status: Acute Plan: Acute on chronic CHF possibly systolic/diastolic Monitor closely on telemetry Started on aggressive diuresis X-ray findings consistent with CHF Oxygen supplementation Will try to wean down oxygen requirement Continue home medications Titrate as needed Will obtain an echocardiogram Cardiology consult Qualifiers: Heart failure type: diastolic Qualified Code(s): I50.33 - Acute on chronic diastolic (congestive) heart failure (2) COPD (chronic obstructive pulmonary disease) Onset Date: 05/25/15 Current Visit: No Status: Acute Plan: COPD with mild exacerbation Started on bronchodilators Monitor closely under telemetry Will start on home medications Oxygen supplementation to titrate to saturation more than 90 Will start on Mucinex Qualifiers: COPD type: COPD with acute exacerbation Qualified Code(s): J44.1 - Chronic obstructive pulmonary disease with (acute) exacerbation (3) Chronic respiratory failure Current Visit: No Status: Chronic Plan: Patient has chronic hypoxic respiratory failure On home O2 CO2 elevated Will get an VBG in the morning Possible element of hypercapnia as well (4) Thoracic aortic aneurysm Current Visit: No Status: Chronic Plan: Patient has a history of thoracic aortic aneurysm Denies any chest pain at this time Vital stable Will obtain a D-dimer If the D-dimer is elevated we will get a CTA chest Hypertension Continue home medications and titrate as needed Hyperlipidemia Continue statin Acute kidney injury Monitor renal parameters Electrolytes monitor and replace accordingly Obesity Advise lifestyle modification Discharge Plan: Home Plan to discharge in: Greater than 2 days - Advance Directives Does patient have a Living Will: No Does patient have a Durable POA for Healthcare: No - Code Status/Comfort Care Code Status: Full Code Time Spent Managing Pts Care (In Minutes): 54
[2023-11-30] MEDS ORDERED: LEVALBUTEROL 1.25 MG/3 ML NEB ONE (00:01)
[2023-11-30] MEDS ORDERED: CODEINE 30MG/APAP 300MG TAB ONE (00:01)
[2023-11-30] MEDS ORDERED: FUROSEMIDE 40 MG/4 ML VIAL ONE ×2 (00:01→08:18)
[2023-11-30] MEDS ORDERED: GUAIFENESIN/DM 5 ML UCUP ONE (00:02)
[2023-11-30] MEDS: FUROSEMIDE 40 MG/4 ML VIAL IV SCH ×2 (01:00→21:00)
[2023-11-30] MEDS: IPRATROPIUM BROM 0.5MG/2.5ML NEB SCH (01:20)
[2023-11-30 03:14] VITALS: BMI 43.0
[2023-11-30] MEDS: LEVOTHYROXINE SOD 0.1 MG TAB PO SCH (05:46)
[2023-11-30] MEDS: PANTOPRAZOLE 40MG TABLET PO SCH (05:46)
[2023-11-30 07:04] LABS: Absolute Lymphocytes (CBC) 0.5 K/uL (0.7-4.9); Absolute Monocytes 0.1 K/uL (0.1-1.3); Basophils % 0.2 % (0-1.3); Eosinophils % 0.1 % (0-4.4); Hematocrit 36.7 % (36.0-45.0); Hemoglobin 12.4 g/dL (12.0-15.0); Lymphocytes % 6.3 % (15.3-44.8); MCH 30.8 pg (27.0-35.0); MCHC 33.8 g/dL (32.0-36.0); Neutrophils % 92.4 % (41.7-73.7); Platelets 282 thou/uL (152-406); RBC Red Blood Cell Count 4.04 M/uL (3.86-4.86); Red Cell Distribution Width 16.1 % (12.1-15.2)
[2023-11-30 07:57] LABS: Albumin 3.5 g/dL (3.4-5.0); Bilirubin Total 0.7 mg/dL (0.2-1.0); Globulin 3.6 g/dL (2.3-3.5); Protein, Total 7.1 g/dL (6.4-8.2)
[2023-11-30] MEDS ORDERED: IPRATROPIUM BROM 0.5MG/2.5ML ONE ×2 (08:03→13:37)
[2023-11-30] MEDS ORDERED: DIVALPROEX DR 250 MG TAB PO ONE (08:18)
[2023-11-30] MEDS ORDERED: ATORVASTATIN 40 MG TAB ONE (08:18)
[2023-11-30] MEDS: SACUBITRIL/VALSARTAN 49/51 MG TAB PO SCH (08:45)
[2023-11-30] MEDS: SPIRONOLACTONE 25 MG TABLET PO SCH (08:45)
[2023-11-30] MEDS: DIVALPROEX DR 500MG TAB PO SCH (08:45)
[2023-11-30] MEDS: lamoTRIgine 25 MG TAB PO SCH (08:45)
[2023-11-30 08:46] LABS: Blood Morphology Comment NOT SEEN (NOT SEEN); Platelet Estimate ADEQ; White Blood Cell Scan OK (OK)
[2023-11-30] MEDS: METOPROLOL TAR 50 MG TAB PO SCH (08:46)
[2023-11-30] MEDS: ATORVASTATIN 40 MG TAB PO SCH (08:46)
[2023-11-30] MEDS: ENOXAPARIN 30 MG/0.3 ML SQ SCH (08:46)
[2023-11-30] MEDS ORDERED: D50W 25 GM/50 ML SYRINGE IV PRN (09:58)
[2023-11-30] MEDS ORDERED: GLUCAGON 1 MG/VIAL IM PRN (09:58)
--- NOTE | 2023-11-30 10:03 | P.PN ---
Subjective Date of Service: 11/30/23 Chief Complaint: SOB Subjective: Other (cough, wheeze, paroxysmal usually in the am) <Apoorva Soriano - Last Filed: 11/30/23 10:48> Date of Service: 11/30/23 <Nunu Dickey - Last Filed: 12/01/23 16:36> Review of Systems 10-point ROS is otherwise unremarkable General: As per HPI Respiratory: As per HPI Cardiovascular: As per HPI Gastrointestinal: Unremarkable Genitourinary: Unremarkable Integumentary: Unremarkable Neurological: Unremarkable Lymphatics: Unremarkable <Apoorva Soriano - Last Filed: 11/30/23 10:48> Physical Examination - Vital Signs Temperature: 97.3 F Blood Pressure: 162/56 Pulse: 65 Respirations: 24 Pulse Ox (%): 94 - Physical Exam General: Alert, Oriented x3, Mild distress, Other (paroxysm of cough, expiratory wheezing) HEENT: Atraumatic, Normocephalic Neck: Supple Respiratory: Expiratory wheezes, Other (harsh cough) Cardiovascular: No edema, Normal pulses Capillary refill: <2 Seconds Gastrointestinal: Soft and benign Musculoskeletal: No clubbing, No swelling Integumentary: No rashes Neurological: Normal speech, Normal tone Lymphatics: No axilla or inguinal lymphadenopathy External genitalia: Deferred Rectal: Deferred - Studies Laboratory Data (last 24 hrs) 11/29/23 11/29/23 11/29/23 22:20 21:41 21:41 WBC 8.40 Hgb 11.9 L Hct 35.7 L Plt Count 308 PT 11.5 INR 1.05 APTT 27.4 Sodium 139 Potassium 4.2 BUN 22 H Creatinine 1.58 H Glucose 119 H Magnesium 2.2 Total Bilirubin 0.6 AST 27 ALT 21 Alkaline Phosphatase 120 H Lipase 27 <Apoorva Soriano - Last Filed: 11/30/23 10:48> Assessment And Plan - Plan Assessment and Plan - Problems (Diagnosis) (1) CHF exacerbation Current Visit: No Status: Acute Plan: Acute on chronic CHF possibly systolic/diastolic Monitor closely on telemetry Started on aggressive diuresis X-ray findings consistent with CHF Oxygen supplementation Will try to wean down oxygen requirement Continue home medications Titrate as needed Will obtain an echocardiogram Cardiology consult Qualifiers: Heart failure type: diastolic Qualified Code(s): I50.33 - Acute on chronic diastolic (congestive) heart failure (2) COPD (chronic obstructive pulmonary disease) Onset Date: 05/25/15 Current Visit: No Status: Acute Plan: COPD with mild exacerbation Started on bronchodilators Monitor closely under telemetry Will start on home medications Oxygen supplementation to titrate to saturation more than 90 Will start on Mucinex Qualifiers: COPD type: COPD with acute exacerbation Qualified Code(s): J44.1 - Chronic obstructive pulmonary disease with (acute) exacerbation (3) Chronic respiratory failure Current Visit: No Status: Chronic Plan: Patient has chronic hypoxic respiratory failure On home O2 CO2 elevated Will get an VBG in the morning - pH 7.395, CO2 49.6, O2 40.2, HCO3 29.7, Base excess 5.0 Possible element of hypercapnia as well (4) Thoracic aortic aneurysm Current Visit: No Status: Chronic Plan: Patient has a history of thoracic aortic aneurysm Denies any chest pain at this time Vital stable Will obtain a D-dimer - positive If the D-dimer is elevated we will get a CTA chest Hypertension Continue home medications and titrate as needed Hyperlipidemia Continue statin Acute kidney injury Monitor renal parameters Electrolytes monitor and replace accordingly Obesity Advise lifestyle modification Discharge Plan: Home Plan to discharge in: Greater than 2 days Discharge Plan: Home Plan to discharge in: Greater than 2 days <Aoporva Soriano - Last Filed: 11/30/23 10:48> Date of Service: 11/30/23 Patient seen and examined. Agree with findings as mentioned above. Continue with current treatment. Out of bed and ambulate. If she does well then possible discharge home today or in the morning. Respiratory status has improved. <Nunu Dickey - Last Filed: 12/01/23 16:36>
[2023-11-30] MEDS ORDERED: ACETYLCYST 6,000 MG/30 ML VIAL ONE (10:04)
[2023-11-30] MEDS ORDERED: D10W 125 ML IV PRN (10:09)
[2023-11-30] MEDS: ACETYLCYST 20% 800 MG/4 ML VIAL PO ONE (10:45)
[2023-11-30 10:58] LABS: Thyroid Stimulating Hormone 1.52 uIU/mL (0.358-3.740)
[2023-11-30] MEDS: INSULIN REGULAR (HUMAN) 100 UNIT/ML SQ SCH (11:30)
[2023-11-30 11:56] LABS: Arterial Blood Carboxyhemoglob 1.2 % (0-1.5); Blood Gas Oxyhemoglobin 71.6 % (94-97); Blood Gas THB 12.3 g/dl (12-18); Blood O2 Saturation 73.8 % (92-98.5)
--- NOTE | 2023-11-30 12:07 | RAD REPORT ---
EXAM DESCRIPTION: CT - Chest For Pe Angio - 11/30/2023 11:50 am CLINICAL HISTORY: Shortness of breath elevated D-dimer COMPARISON: 2022 TECHNIQUE: Dynamically enhanced axial 3 mm thick images of the chest were obtained during administra tion of 100 mL Isovue 370 IV contrast. Coronal and oblique reconstruction images were generated and r eviewed. Exam utilizes a protocol for optimal evaluation of pulmonary arterial tree. Maximum intensity projections 3D imaging was utilized All CT scans are performed using dose optimization technique as appropriate and may include automated exposure control or mA/KV adjustment according to patient size. FINDINGS: A pulmonary embolus is not seen. 5.2 centimeter aneurysm mid to distal ascending thoracic aorta without significant change A pleural effusion is not seen. A pericardial effusion is not seen. A lung consolidation is not present. COPD IMPRESSION: Negative for a pulmonary embolism. 5.2 centimeter aneurysm mid to distal ascending thoracic aorta
[2023-11-30] MEDS ORDERED: METHYLPREDNISOLONE 125 MG INJ ONE (13:03)
[2023-11-30] MEDS: METHYLPREDNISOLONE 125 MG INJ IV SCH (13:06)
[2023-11-30] MEDS ORDERED: INSULIN REGULAR (HUMAN) 100 UNIT/ML ONE (16:56)
--- NOTE | 2023-11-30 17:22 | EKG ---
Test Date: 2023-11-29 Test Time: 20:52:42 Senior Visual Designer: PASHA MEASUREMENT RESULTS: Intervals: Rate: 68 [place]: 144 QRSD: 84 QT: 434 QTc: 461 [place]: P: 63 [place]: 144 QRS: 24 T: 89 INTERPRETIVE STATEMENTS: Sinus rhythm with marked sinus arrhythmia Nonspecific ST and T wave abnormality Abnormal ECG Compared to ECG 09/24/2023 10:18:10 ST (T wave) deviation now present Sinus bradycardia no longer present Electronically Signed On 11-30-23 17:19:58 CDT by Davy Flores
[2023-11-30] MEDS: GUAIFENESIN 600 MG SA TAB PO SCH (20:45)
[2023-11-30] MEDS: QUETIAPINE 100MG TAB PO SCH (20:45)
--- NOTE | 2023-11-30 21:00 | P.CNS ---
Date of Consult: 11/30/23 Reason for Consult: COPD exacerbation Chief Complaint: SOB History of Present Illness: Patient is 78 years of age past medical history hypertension COPD multiple medical problems admitted to the emergency room complaining of worsening dyspnea for the past 2 weeks coughing up some phlegm admitted with hypoxic respiratory failure no significant change since admission Allergies No Known Drug Allergies Allergy (Verified 09/24/23 09:02) Unknown Home Medications: Quetiapine Fumarate [Seroquel] 100 mg PO BEDTIME 12/17/22 Furosemide [Lasix*] 40 mg PO DAILY #30 tab 12/20/22 Atorvastatin Calcium 40 mg PO BEDTIME 04/18/23 Lamotrigine [Lamictal] 25 mg PO DAILY 04/18/23 Metoprolol Tartrate 50 mg PO DAILY 04/18/23 Pantoprazole [Protonix Tab*] 40 mg PO DAILY 04/18/23 Albuterol Sulfate [Albuterol Sulfate Hfa] 2 puff IH QIDP PRN 11/30/23 Fluticasone/Umeclidin/Vilanter [Trelegy Ellipta 100-62.5-25] 1 each IH DAILY 11/30/23 Potassium Chloride [Klor-Con] 20 meq PO DAILY 11/30/23 Sacubitril/Valsartan [Entresto 49 mg-51 mg Tablet] 1 tab PO BID 11/30/23 Spironolactone 25 mg PO DAILY 11/30/23 - Past Medical/Surgical History Diabetic: No -: COPD -: HTN -: BRONCHITIS -: EMPHYSEMA -: HLD -: BIPOLAR DISORDER -: CLAUSTROPHOBIA -: SLEEP APNEA -: HYPOTHYROIDISM -: GERD -: CHF -: Arthritis -: APPY -: LILI Psychosocial/ Personal History: lives at home by herself - Family History Mother Medical History: Heart disease, Lung disease Father Medical History: Cancer Brother Medical History: Lung disease, Cancer Sister Medical History: Lung disease, Cancer Notes: Melanoma - Social History Smoking Status: Former smoker Alcohol use: No CD- Drugs: No Caffeine use: Yes Place of Residence: Home Review of Systems 10-point ROS is otherwise unremarkable General: Weakness Respiratory: Cough, Shortness of Breath Physical Examination Temp Pulse Resp BP Pulse Ox 97.7 F 65 16 199/63 H 97 11/30/23 17:00 11/30/23 17:00 11/30/23 17:00 11/30/23 17:00 11/30/23 17:00 General: Alert, Oriented x3 HEENT: Atraumatic Neck: Supple Respiratory: Clear to auscultation bilaterally, Diminished Cardiovascular: No edema, Regular rate/rhythm, Normal S1 S2 Gastrointestinal: Normal bowel sounds, Soft and benign Musculoskeletal: No clubbing, No swelling Integumentary: No rashes, No breakdown Laboratory Data (last 24 hrs) 11/29/23 11/29/23 11/29/23 22:20 21:41 21:41 WBC 8.40 Hgb 11.9 L Hct 35.7 L Plt Count 308 PT 11.5 INR 1.05 APTT 27.4 Sodium 139 Potassium 4.2 BUN 22 H Creatinine 1.58 H Glucose 119 H Magnesium 2.2 Total Bilirubin 0.6 AST 27 ALT 21 Alkaline Phosphatase 120 H Lipase 27 - Problems (1) COPD exacerbation Current Visit: Yes Status: Acute Plan: Patient is 78 years of age well-known to ne multiple medical problems admitted with COPD exacerbation evidence of pulmonary embolism CT scan is unremarkable has an thoracic aneurysm aneurysm 0.2 cm labs mildly impaired renal function BNP is elevated white count is normal blood pressure is also elevated probably venous blood gases most likely she has underlying congestive heart failure last echocardiogram was done in January 07 most likely underlying diastolic failure continue with diuretics she does take trilogy at home patient is on spironolactone and Lasix titrate sat to 90% possible discharge a.m.
--- NOTE | 2023-11-30 21:07 | CON ---
Date of Consultation: 11/30/2023 Reason For Consultation: Heart failure. History Of Present Illness: 78-year-old female, history of dyslipidemia, hypertension, congestive he art failure, COPD, hypothyroidism, presented to the emergency room with worsening shortness of breath , orthopnea and lower extremity edema and wheezing and very mild cough. Denies fevers or chills. No other complaints. Past Medical History: As outlined above in the HPI. Medications: Refer to reconciliation sheet for detailed list. Allergies: NO KNOWN DRUG ALLERGIES. Family History: No premature coronary artery disease or cancer. Social History: She does not smoke or drink. Does not use any drugs. Review of Systems: All systems were reviewed, they were negative except what was mentioned in HPI. Physical Examination: Vital Signs: Reviewed. Head and Neck: Pupils are equal, reactive to light. Intact eye movements. Positive JVD. No cervic al lymphadenopathy. Neck is supple. Thyroid is not enlarged. Lungs: Decreased breathing sounds with wheezing and faint crackles in bases. No accessory muscle us e or muscle retraction. Heart: Irregular. No extra sounds. Abdomen: Soft, nontender. Bowel sounds positive. No organomegaly. No masses or hernia. No rigidi ty or rebound. Extremities: Edema bilaterally. No clubbing or cyanosis. Intact pulses. Skin: No rash or nodule. Neurologic: Alert, awake, oriented x3. No acute focal deficits appreciated. Investigations: BUN is 21, creatinine 1.5. Cardiac enzymes are negative and hemoglobin is 12.4, and the CTA of the chest showed no pulmonary embolism. There is 5.2 cm aneurysm in the mid to distal as cending aorta. Assessment And Recommendations: 1.Acute on chronic diastolic heart failure exacerbation. Agree with diuresis with Lasix; carefully monitoring BUN, creatinine, electrolytes, and the patient follows up with me in the office. Likely s he had an echo recently which we will obtain at the records from the office. 2.Chronic kidney disease with acute worsening due to heart failure exacerbation, improved with diure sis initially. To monitor BUN, creatinine, electrolytes very carefully. 3.Thoracic aorta aneurysm 5.2 cm. We will plan for surgical repair to be done as an outpatient. 4.Dyslipidemia. Continue statin. SR/MODL Voice ID: [id number] Report ID: [id number]
[2023-11-30] MEDS: predniSONE 20 MG TAB PO SCH (21:39)
[2023-12-01] MEDS: AMLODIPINE 5 MG TAB PO ONE (00:50)
[2023-12-01 07:23] LABS: Absolute Lymphocytes (CBC) 1.1 K/uL (0.7-4.9); Absolute Monocytes 0.5 K/uL (0.1-1.3); Absolute Neutrophil 12.8 K/uL (1.8-8.0); Hematocrit 34.2 % (36.0-45.0); Hemoglobin 11.4 g/dL (12.0-15.0); Lymphocytes % 7.8 % (15.3-44.8); MCH 30.3 pg (27.0-35.0); MCHC 33.4 g/dL (32.0-36.0); MCV 90.7 fL (80-100); MPV 9.2 fL (7.6-11.3); Monocytes % 3.2 % (3.3-12.3); Nucleated Red Blood Cells % 0.1 % (0-0); Platelets 307 thou/uL (152-406); RBC Red Blood Cell Count 3.77 M/uL (3.86-4.86); Red Cell Distribution Width 15.8 % (12.1-15.2)
[2023-12-01 07:47] LABS: Albumin 3.3 g/dL (3.4-5.0); Anion Gap 8.4 mEq/L (5.0-15.0); Bilirubin Total 0.5 mg/dL (0.2-1.0); Globulin 3.3 g/dL (2.3-3.5); Magnesium 2.2 mg/dL (1.6-2.4); Potassium 4.4 mEq/L (3.5-5.1); Protein, Total 6.6 g/dL (6.4-8.2)
[2023-12-01 08:35] LABS: Band Neutrophils 1 % (0-1); Differential Total Cells Count 100; Lymphocytes 6 % (15-42); Monocytes 4 % (0-10); Platelet Estimate ADEQ; Segmented Neutrophils 89 % (40-80)
[2023-12-01 08:36] LABS: Blood Morphology Comment NOT SEEN (NOT SEEN)
[2023-12-01] MEDS: Fluticasone/Umeclidin/Vilanter [Trelegy Ellipta] 100-62.5-25 IH SCH (09:00)
--- NOTE | 2023-12-01 14:15 | P.DS ---
Admission Date: 11/29/23 Discharge Date: 12/01/23 Disposition: ROUTINE DISCHARGE Discharge Condition: GOOD Reason for Admission: SOB Brief History of Present Illness: 78-year-old female with a past medical history of hypertension, hyperlipidemia, hypothyroidism, GERD, COPD, CHF, arthritis, bipolar disorder brought to ER with worsening of shortness of breath. She also has a history of aortic aneurysm, asthma, history of bronchitis, chronic hypoxic respiratory failure on home O2 at 3L. She started having worsening of shortness of breath last week and has been progressively worsening. Denies any chest pain. States she has coughing fits in the mornings and it tires her. Denies any fever or chills. No nausea vomiting or diarrhea. No ill contacts. Hospital Course: Patient is 78 years patient with multiple medical problems. She was admitted with COPD exacerbation, no evidence of pulmonary embolism. CT scan is unremarkable. She does have a known thoracic aneurysm 0.2 cm. Her Deck Worker told her she would not be an operative candidate for repair. BNP is elevated, blood pressure is also elevated. Her white count is normal. She has underlying congestive heart failure, last echocardiogram was done in January 07, most likely underlying diastolic failure. Continue with diuretics, she takes trelogy at home and is on spironolactone and Lasix. She has oxygen at home and usually stays on 3L. She states she is feeling back to baseline. Vital Signs/Physical Exam: Temp Pulse Resp BP Pulse Ox 97.7 F 51 17 139/64 98 12/01/23 12:00 12/01/23 12:00 12/01/23 12:00 12/01/23 12:00 12/01/23 12:00 General: Alert, In no apparent distress, Oriented x3, Obese HEENT: Atraumatic, Normocephalic Neck: 2+ carotid pulse no bruit Respiratory: Normal air movement, Expiratory wheezes, Other (mild, no coughing) Cardiovascular: Normal pulses Capillary refill: <2 Seconds Gastrointestinal: Soft and benign Musculoskeletal: No clubbing Integumentary: No rashes Neurological: Normal speech, Normal tone Lymphatics: No axilla or inguinal lymphadenopathy External genitalia: Deferred Rectal: Deferred Laboratory Data at Discharge: WBC 14.40 thou/uL (4.3-10.9) H 12/01/23 06:24 Hgb 11.4 g/dL (12.0-15.0) L D 12/01/23 06:24 Hct 34.2 % (36.0-45.0) L 12/01/23 06:24 Plt Count 307 thou/uL (152-406) 12/01/23 06:24 PT 11.5 SECONDS (9.5-12.5) 11/29/23 21:41 INR 1.05 11/29/23 21:41 APTT 27.4 SECONDS (24.3-36.9) 11/29/23 21:41 Sodium 137 mEq/L (136-145) 12/01/23 06:24 Potassium 4.4 mEq/L (3.5-5.1) 12/01/23 06:24 BUN 31 mg/dL (7-18) H 12/01/23 06:24 Creatinine 1.56 mg/dL (0.55-1.02) H 12/01/23 06:24 Glucose 143 mg/dL (74-106) H 12/01/23 06:24 Magnesium 2.2 mg/dL (1.6-2.4) 12/01/23 06:24 Total Bilirubin 0.5 mg/dL (0.2-1.0) 12/01/23 06:24 AST 20 U/L (15-37) 12/01/23 06:24 ALT 19 U/L (13-56) 12/01/23 06:24 Alkaline Phosphatase 107 U/L (45-117) 12/01/23 06:24 Triglycerides 47 mg/dL (<150) 11/30/23 06:32 Cholesterol 136 mg/dL (<200) 11/30/23 06:32 HDL Cholesterol 64 mg/dL (40-60) H 11/30/23 06:32 Cholesterol/HDL Ratio 2.13 11/30/23 06:32 Lipase 27 U/L (13-75) 11/29/23 22:20 Home Medications: Quetiapine Fumarate [Seroquel] 100 mg PO BEDTIME 12/17/22 Furosemide [Lasix*] 40 mg PO DAILY #30 tab 12/20/22 Atorvastatin Calcium 40 mg PO BEDTIME 04/18/23 Lamotrigine [Lamictal] 25 mg PO DAILY 04/18/23 Metoprolol Tartrate 50 mg PO DAILY 04/18/23 Pantoprazole [Protonix Tab*] 40 mg PO DAILY 04/18/23 Albuterol Sulfate [Albuterol Sulfate Hfa] 2 puff IH QIDP PRN 11/30/23 Fluticasone/Umeclidin/Vilanter [Trelegy Ellipta 100-62.5-25] 1 each IH DAILY 11/30/23 Potassium Chloride [Klor-Con] 20 meq PO DAILY 11/30/23 Sacubitril/Valsartan [Entresto 49 mg-51 mg Tablet] 1 tab PO BID 11/30/23 Spironolactone 25 mg PO DAILY 11/30/23 Diet: AHA Activity: Ad jessica Followup: RAMAKRISHNA LAGUNA [Primary Care Provider] -
[2023-12-02 07:47] LABS: Absolute Basophils 0.1 K/uL (0-0.5); Absolute Lymphocytes (CBC) 1.2 K/uL (0.7-4.9); Absolute Monocytes 1.1 K/uL (0.1-1.3); Absolute Neutrophil 14.2 K/uL (1.8-8.0); Basophils % 0.3 % (0-1.3); Hematocrit 39.1 % (36.0-45.0); Hemoglobin 12.9 g/dL (12.0-15.0); Lymphocytes % 7.4 % (15.3-44.8); MCH 30.2 pg (27.0-35.0); MCHC 32.9 g/dL (32.0-36.0); MCV 91.6 fL (80-100); Monocytes % 6.8 % (3.3-12.3); Neutrophils % 85.5 % (41.7-73.7); Platelets 329 thou/uL (152-406); RBC Red Blood Cell Count 4.27 M/uL (3.86-4.86)
[2023-12-02 07:57] LABS: Albumin 3.7 g/dL (3.4-5.0); Anion Gap 8.4 mEq/L (5.0-15.0); Bilirubin Total 0.6 mg/dL (0.2-1.0); Globulin 3.6 g/dL (2.3-3.5); Magnesium 2.5 mg/dL (1.6-2.4); Potassium 4.4 mEq/L (3.5-5.1); Protein, Total 7.3 g/dL (6.4-8.2)
[2023-12-02] MEDS: SPIRONOLACTONE 25 MG TABLET PO SCH (08:12)
[2023-12-02] MEDS: METHYLPREDNISOLONE 40 MG INJ IV ONE (14:28)
[2023-12-02] MEDS: CEFTRIAXONE 1,000 MG in NA CHLORIDE 0.9% 50 ML IVPB ONE (14:28)
--- NOTE | 2023-12-02 18:48 | PN ---
Date of Progress Note: 12/02/2023 Subjective: Seen by bedside. She is lying flat. No significant shortness of breath. No chest pain , nausea, vomiting, or diarrhea. All other systems were reviewed, they were negative. Objective: Vital Signs: Reviewed. Head and Neck: Pupils are equal, reactive to light. Intact eye movements. No JVD. No cervical lym phadenopathy. Neck is supple. Thyroid is not enlarged. Lungs: Clear to auscultation. No accessory muscle use or muscle retraction. No wheezing. Heart: Irregular. No extra sounds. Abdomen: Soft, nontender. Bowel sounds positive. No organomegaly. No masses or hernia. No rigidi ty or rebound. Extremities: No edema, clubbing, or cyanosis. Intact pulses. Skin: No rash. No nodule. Neurological: Alert, awake, oriented x3. No acute focal deficits appreciated. Lymph Nodes: No cervical or axillary lymphadenopathy. Investigations: Labs were reviewed. Assessment And Recommendations: 1.Acute on chronic diastolic heart failure exacerbation. She appears to be at baseline now. We rec ommend to change Lasix to 40 mg by mouth twice a day and in preparation for discharge. 2.Chronic kidney failure. Creatinine started to go up slightly. Recommend to change Lasix to oral. Monitor. 3.Thoracic aorta aneurysm, 5.2 cm, needs surgical repair. We will plan for it as an outpatient. 4.Dyslipidemia. Continue statin. SR/MODL Voice ID: [id number] Report ID: [id number]
--- NOTE | 2023-12-02 20:53 | P.PN ---
Subjective Date of Service: 12/02/23 Chief Complaint: SOB Subjective: Tolerating diet, Improving, Doing well (wheezing and coughing in the morning, feels good throughout the day) Review of Systems 10-point ROS is otherwise unremarkable General: Unremarkable Respiratory: As per HPI Physical Examination - Vital Signs Temperature: 96.9 F Blood Pressure: 150/67 Pulse: 67 Respirations: 20 Pulse Ox (%): 96 - Physical Exam General: Alert, In no apparent distress, Oriented x3 HEENT: Atraumatic, Normocephalic Neck: Supple, 2+ carotid pulse no bruit Respiratory: Expiratory wheezes, Other (cough) Cardiovascular: Normal pulses, Regular rate/rhythm Capillary refill: <2 Seconds Gastrointestinal: Soft and benign Musculoskeletal: No clubbing, No swelling Integumentary: No rashes Neurological: Normal speech, Normal tone Lymphatics: No axilla or inguinal lymphadenopathy External genitalia: Deferred Rectal: Deferred Assessment And Plan - Plan Assessment and Plan - Problems (Diagnosis) (1) CHF exacerbation Current Visit: No Status: Acute Plan: Acute on chronic CHF possibly systolic/diastolic Monitor closely on telemetry Started on aggressive diuresis Oxygen supplementation Will try to wean down oxygen requirement back to home levels Continue home medications Titrate as needed Will obtain an echocardiogram Cardiology consult Qualifiers: Heart failure type: diastolic Qualified Code(s): I50.33 - Acute on chronic diastolic (congestive) heart failure (2) COPD (chronic obstructive pulmonary disease) Onset Date: 05/25/15 Current Visit: No Status: Acute Plan: COPD with mild exacerbation Started on bronchodilators Monitor closely under telemetry Will start on home medications Oxygen supplementation to titrate to saturation more than 90 Will start on Mucinex Qualifiers: COPD type: COPD with acute exacerbation Qualified Code(s): J44.1 - Chronic obstructive pulmonary disease with (acute) exacerbation (3) Chronic respiratory failure Current Visit: No Status: Chronic Plan: Patient has chronic hypoxic respiratory failure On home O2 at 3L (4) Thoracic aortic aneurysm Current Visit: No Status: Chronic Plan: Patient has a history of thoracic aortic aneurysm Denies any chest pain at this time Vital stable Hypertension Continue home medications and titrate as needed Hyperlipidemia Continue statin Acute kidney injury Monitor renal parameters Electrolytes monitor and replace accordingly Obesity Advise lifestyle modification Discharge Plan: Home Plan to discharge in: 24 hors Discharge Plan: Home Plan to discharge in: 24 Hours
--- NOTE | 2023-12-02 20:55 | P.PN ---
Subjective Date of Service: 12/01/23 Chief Complaint: SOB Subjective: No C/O voiced, Improving Review of Systems 10-point ROS is otherwise unremarkable Respiratory: As per HPI Physical Examination - Vital Signs Temperature: 96.9 F Blood Pressure: 150/67 Pulse: 67 Respirations: 20 Pulse Ox (%): 96 - Physical Exam General: Alert, In no apparent distress, Oriented x3 HEENT: Atraumatic, Normocephalic Neck: Supple Respiratory: Diminished, Expiratory wheezes, Other (harsh paroxysmal cough) Cardiovascular: Normal pulses, Regular rate/rhythm Capillary refill: <2 Seconds Gastrointestinal: Normal bowel sounds Musculoskeletal: No clubbing, No swelling Integumentary: No rashes Neurological: Normal speech, Normal tone Lymphatics: No axilla or inguinal lymphadenopathy External genitalia: Deferred Rectal: Deferred Assessment And Plan - Plan Assessment and Plan - Problems (Diagnosis) (1) CHF exacerbation Current Visit: No Status: Acute Plan: Acute on chronic CHF possibly systolic/diastolic Monitor closely on telemetry Started on aggressive diuresis Oxygen supplementation Will try to wean down oxygen requirement back to home levels Continue home medications Titrate as needed Will obtain an echocardiogram Cardiology consult Qualifiers: Heart failure type: diastolic Qualified Code(s): I50.33 - Acute on chronic diastolic (congestive) heart failure (2) COPD (chronic obstructive pulmonary disease) Onset Date: 05/25/15 Current Visit: No Status: Acute Plan: COPD with mild exacerbation Started on bronchodilators Monitor closely under telemetry home medications Oxygen supplementation to titrate to saturation more than 90 Qualifiers: COPD type: COPD with acute exacerbation Qualified Code(s): J44.1 - Chronic obstructive pulmonary disease with (acute) exacerbation (3) Chronic respiratory failure Current Visit: No Status: Chronic Plan: Patient has chronic hypoxic respiratory failure On home O2 at 3L (4) Thoracic aortic aneurysm Current Visit: No Status: Chronic Plan: Patient has a history of thoracic aortic aneurysm Denies any chest pain at this time Vital stable Hypertension Continue home medications and titrate as needed Hyperlipidemia Continue statin Acute kidney injury Monitor renal parameters Electrolytes monitor and replace accordingly Obesity Advise lifestyle modification Discharge Plan: Home Plan to discharge in: 24 houirs Discharge Plan: Home Plan to discharge in: 72 Hours
[2023-12-03 06:22] LABS: Absolute Monocytes 0.9 K/uL (0.1-1.3); Basophils % 0.2 % (0-1.3); Hematocrit 37.5 % (36.0-45.0); Hemoglobin 12.5 g/dL (12.0-15.0); Lymphocytes % 7.8 % (15.3-44.8); MCH 30.4 pg (27.0-35.0); MCHC 33.4 g/dL (32.0-36.0); MCV 91.2 fL (80-100); MPV 9.3 fL (7.6-11.3); Monocytes % 6.9 % (3.3-12.3); Neutrophils % 85.1 % (41.7-73.7); Platelets 328 thou/uL (152-406); RBC Red Blood Cell Count 4.11 M/uL (3.86-4.86); Red Cell Distribution Width 15.5 % (12.1-15.2)
[2023-12-03 06:41] LABS: Albumin 3.2 g/dL (3.4-5.0); Albumin/Globulin Ratio 0.9 (1.1-1.8); Anion Gap 9.6 mEq/L (5.0-15.0); Bilirubin Total 0.4 mg/dL (0.2-1.0); Globulin 3.4 g/dL (2.3-3.5); Magnesium 2.5 mg/dL (1.6-2.4); Potassium 4.6 mEq/L (3.5-5.1); Protein, Total 6.6 g/dL (6.4-8.2)
[2023-12-03] MEDS: HYDRALAZINE HCL 20 MG/ML VIAL IV PRN (08:36)
[2023-12-03] MEDS: ACETAMINOPHEN 325 MG TABLET PO PRN (08:36)
--- NOTE | 2023-12-03 11:11 | P.PN ---
Subjective Date of Service: 12/03/23 Chief Complaint: SOB Pt is resting comfortably in bed. She reports productive cough with yellow sputum. Pt does not feel that she is well enough to go home. No other complaints Review of Systems General: Unremarkable Eyes: Unremarkable ENT: Unremarkable Respiratory: Cough, Shortness of Breath Cardiovascular: Unremarkable Gastrointestinal: Unremarkable Genitourinary: Unremarkable Musculoskeletal: Unremarkable Integumentary: Unremarkable Neurological: Unremarkable Lymphatics: Unremarkable Physical Examination - Vital Signs Temperature: 97.4 F Blood Pressure: 146/42 Pulse: 59 Respirations: 18 Pulse Ox (%): 94 - Physical Exam General: Alert, In no apparent distress, Oriented x3 HEENT: Atraumatic, Normocephalic, PERRLA Neck: Supple, 2+ carotid pulse no bruit Respiratory: Clear to auscultation bilaterally, Normal air movement, Diminished Cardiovascular: No edema, Normal pulses, Regular rate/rhythm, Normal S1 S2 Capillary refill: <2 Seconds Gastrointestinal: Normal bowel sounds, Soft and benign, Non-distended Musculoskeletal: No clubbing, No swelling Integumentary: No rashes, No breakdown, No significant lesion Neurological: Normal gait, Normal speech, Normal strength at 5/5 x4 extr Lymphatics: No axilla or inguinal lymphadenopathy Assessment And Plan - Plan Acute on chronic mixed CHF exacerbation: Will continue lasix 40mg iv BID, metoprolol, spironolactone, low salt diet, strict I/O and daily weight. Will f/u Echo. Consulted cardiology. Hx of COPD: Will continue prn duoneb, mucinex, levaquin, and pprn oxygen. Hx of chronic resp failure: Due to COPD. Will continue 2L BNC. Pt used 3Lof oxygen at home. Hx of thoracic aortic aneurysm: stable. Pt denies any chest pain. Hypertension: Continue home medications and titrate as needed Hyperlipidemia: statin Acute kidney injury: Cr is 1.56. Will avoid nephrotoxins and monitor renal function. Obesity: Pt was advised to lose weight. Discharge Plan: Home
[2023-12-03] MEDS: levoFLOXacin 750 MG TAB PO SCH (11:54)
--- NOTE | 2023-12-03 12:35 | P.PN ---
Subjective Date of Service: 12/03/23 Chief Complaint: SOB No change in patient's condition still complains of shortness of breath has a productive cough no change Review of Systems General: Weakness Respiratory: Cough, Shortness of Breath Physical Examination - Vital Signs Temperature: 97.4 F Blood Pressure: 146/42 Pulse: 80 Respirations: 18 Pulse Ox (%): 95 - Physical Exam General: Alert, Oriented x3 Neck: Supple Respiratory: Clear to auscultation bilaterally, Diminished Cardiovascular: No edema, Regular rate/rhythm, Normal S1 S2 Gastrointestinal: Normal bowel sounds, Soft and benign Assessment And Plan - Current Problems (Diagnosis) (1) COPD exacerbation Current Visit: Yes Status: Acute Plan: Patient admitted with COPD exacerbation no change patient's white count is declining chemistries no change vital signs are all stable cultures are negative oxygenation satisfactory stable for discharge patient has some diastolic heart failure
--- NOTE | 2023-12-03 14:25 | P.DS ---
Admission Date: 11/29/23 Discharge Date: 12/03/23 Disposition: ROUTINE DISCHARGE Discharge Condition: GOOD Reason for Admission: SOB Brief History of Present Illness: 78-year-old female with a past medical history of hypertension, hyperlipidemia, hypothyroidism, GERD, COPD, emphysema, CHF, arthritis, bipolar disorder brought to ER with worsening of shortness of breath. She is also has a history of aortic aneurysm, asthma history of bronchitis, chronic hypoxic respiratory failure on home O2. She started having worsening of shortness of breath which started last week and has been progressively worsening. Denies any chest pain. Not associated with nonproductive cough. As the shortness of breath has been worsening and was brought to the ER. Denies any fever or chills. No nausea vomiting or diarrhea. No sick contacts.. She was assessed in the ER and was admitted for further management of CHF exacerbation and COPD exacerbation Last LHC showed Mild nonobstructive coronary artery diseaseand was recommended Medical management. Hospital Course: Pt is a 78-year-old female with a past medical history of hypertension, hyperlipidemia, Aortic aneurysm, asthma, bronchitis, chronic resp failure on home oxygen, hypothyroidism, GERD, COPD, emphysema, CHF, arthritis, bipolar disorder who presented in the ER with worsening of shortness of breath. The SOB progressively worsened and pt came to the ER for evaluation. Pt was admitted for treatment of acute CHF exacerbation and COPD exacerbation. Of note, the last left heart cath she had showed mild non-obstructive coronary artery disease and the employee communications manager recommended medical management. We continued lasix 40mg iv BID, metoprolol, spironolactone, low salt diet, strict I/O and daily weight. Pt also received abx, prn duoneb, mucinex, and prn oxygen for acute COPD. We weaned her oxygen down to 2L BNC. We continued home med for other chronic medical problems. We monitored and avoided nephrotoxins due to PHIL. Pt was in NAD prior to discharge. Vital Signs/Physical Exam: Temp Pulse Resp BP Pulse Ox 97.4 F 80 18 146/42 H 95 12/03/23 12:35 12/03/23 12:35 12/03/23 12:35 12/03/23 12:35 12/03/23 12:35 Laboratory Data at Discharge: WBC 12.90 thou/uL (4.3-10.9) H 12/03/23 05:43 Hgb 12.5 g/dL (12.0-15.0) 12/03/23 05:43 Hct 37.5 % (36.0-45.0) 12/03/23 05:43 Plt Count 328 thou/uL (152-406) 12/03/23 05:43 PT 11.5 SECONDS (9.5-12.5) 11/29/23 21:41 INR 1.05 11/29/23 21:41 APTT 27.4 SECONDS (24.3-36.9) 11/29/23 21:41 Sodium 136 mEq/L (136-145) 12/03/23 05:42 Potassium 4.6 mEq/L (3.5-5.1) 12/03/23 05:42 BUN 52 mg/dL (7-18) H 12/03/23 05:42 Creatinine 1.56 mg/dL (0.55-1.02) H 12/03/23 05:42 Glucose 107 mg/dL (74-106) H 12/03/23 05:42 Magnesium 2.5 mg/dL (1.6-2.4) H 12/03/23 05:42 Total Bilirubin 0.4 mg/dL (0.2-1.0) 12/03/23 05:42 AST 18 U/L (15-37) 12/03/23 05:42 ALT 26 U/L (13-56) 12/03/23 05:42 Alkaline Phosphatase 98 U/L (45-117) 12/03/23 05:42 Triglycerides 47 mg/dL (<150) 11/30/23 06:32 Cholesterol 136 mg/dL (<200) 11/30/23 06:32 HDL Cholesterol 64 mg/dL (40-60) H 11/30/23 06:32 Cholesterol/HDL Ratio 2.13 11/30/23 06:32 Lipase 27 U/L (13-75) 11/29/23 22:20 Home Medications: Quetiapine Fumarate [Seroquel] 100 mg PO BEDTIME 12/17/22 Furosemide [Lasix*] 40 mg PO DAILY #30 tab 12/20/22 Atorvastatin Calcium 40 mg PO BEDTIME 04/18/23 Lamotrigine [Lamictal] 25 mg PO DAILY 04/18/23 Metoprolol Tartrate 50 mg PO DAILY 04/18/23 Pantoprazole [Protonix Tab*] 40 mg PO DAILY 04/18/23 Albuterol Sulfate [Albuterol Sulfate Hfa] 2 puff IH QIDP PRN 11/30/23 Fluticasone/Umeclidin/Vilanter [Trelegy Ellipta 100-62.5-25] 1 each IH DAILY 11/30/23 Sacubitril/Valsartan [Entresto 49 mg-51 mg Tablet] 1 tab PO BID 11/30/23 Albuterol Neb [Proventil 0.083% Neb Soln] 2.5 mg NEB Q6HP PRN #60 amp 12/03/23 Cefdinir [Cefdinir*] 300 mg PO BID #14 cap 12/03/23 Ciprofloxacin/Hydrocortisone [Cipro Hc Otic Suspension] 2 drop OT Q12H #1 bottle 12/03/23 Ipratropium Neb [Atrovent*] 0.5 mg NEB [id number] #60 amp 12/03/23 Nebulizer 1 each MC DAILY #1 ea 12/03/23 Nebulizer Accessories [Aeroneb Go] 1 each MC DAILY #1 ea 12/03/23 Spironolactone 25 mg PO BID #60 tab 12/03/23 predniSONE [Prednisone*] 20 mg PO BIDWM #20 tab 12/03/23 New Medications: Ipratropium Neb [Atrovent*] 0.5 mg NEB [id number] #60 amp Albuterol Neb [Proventil 0.083% Neb Soln] 2.5 mg NEB Q6HP PRN #60 amp PRN Reason: Shortness Of Breath Nebulizer Accessories [Aeroneb Go] 1 each MC DAILY #1 ea Cefdinir [Cefdinir*] 300 mg PO BID #14 cap Ciprofloxacin/Hydrocortisone [Cipro Hc Otic Suspension] 2 drop OT Q12H #1 bottle Nebulizer 1 each MC DAILY #1 ea predniSONE [Prednisone*] 20 mg PO BIDWM #20 tab Spironolactone 25 mg PO BID #60 tab Physician Discharge Instructions: OK TO DC IV AND DC HOME FOLLOW-UP WITH PRIMARY CARE PROVIDER IN 1-2 WEEKS FOLLOW-UP WITH CARDIOLOGY IN 1-2 WEEKS FOLLOW-UP WITH Pulmonary IN 1-2 WEEKS RETURN TO THE ER IF symptoms worsens CALL DR. OQUENDO AT [phone] IF ANY QUESTIONS REGARDING HOSPITAL STAY. PLEASE CALL THE FLOOR AT [phone] IF ANY MEDICATION OR NURSING QUESTIONS. Diet: AHA Activity: Ad jessica Followup: Zeeshan Busch MD [ACTIVE - CAN ADMIT] - 1-2 Weeks Davy lFores MD [ACTIVE - CAN ADMIT] - 1-2 Weeks RAMAKRISHNA LAGUNA [Primary Care Provider] - 1-2 Weeks
[2023-12-03 17:34] VITALS: BP 164/64; TEMP 98.1
[2023-12-03 18:45] VITALS: O2SAT 97
--- NOTE | 2023-12-03 19:52 | PN ---
Date of Progress Note: 12/03/2023 Subjective: Seen by bedside, lying flat and euvolemic. Review of Systems: No chest pain, shortness of breath, orthopnea, cough. No nausea, vomiting, diarrhea. All other syst ems reviewed, they are negative. Physical Examination: Vital Signs: Reviewed. Head and Neck: Pupils are equal, reactive to light. Intact eye movements. No JVD. No cervical lym phadenopathy. Neck is supple. Thyroid is not enlarged. Lungs: Clear to auscultation bilaterally. No rhonchi, rales, or crackles. No accessory muscle use. Heart: Regular rate and rhythm. No extra sounds. Abdomen: Soft, nontender. Bowel sounds positive. No organomegaly. No masses or hernia. No rigidi ty or rebound. Extremities: No edema, clubbing, or cyanosis. Intact pulses. Skin: No rash. Neurologic: Alert, awake, oriented x3. No acute focal deficits appreciated. Investigation: Labs reviewed. Assessment/recommendation: 1.Acute on chronic diastolic heart failure exacerbation, doing clinically well. Continue Lasix 40 m g twice a day. From Cardiology standpoint, the patient can be released. Follow up in the office in 1 week post discharge with BMP. 2.Chronic kidney failure, stabilized. 3.Thoracic aortic aneurysm, 5.2 cm, to arrange for surgical repair as an outpatient. 4.Dyslipidemia. Continue statin. SR/MODL Voice ID: [id number] Report ID: [id number]
[2023-12-04] MEDS ORDERED: levoFLOXacin 750 MG TAB PO SCH (09:00)
== END 2023-12-03 18:00 | disposition home or self-care (01) | DRG 291 ==
LOC: ER 20:28 → ERHOLD 23:38 → 3RD-ICU 11-30 03:07 → 2ND 11-30 16:23
PROVIDERS: ADMIT Family Medicine; ATTEND Hospitalist
DX: I13.0 Hypertensive heart and chronic kidney disease with heart failure and stage 1 through stage 4 chronic kidney disease, or unspecified chronic kidney disease (principal); I50.33 Acute on chronic diastolic (congestive) heart failure; J44.1 Chronic obstructive pulmonary disease with (acute) exacerbation; J96.11 Chronic respiratory failure with hypoxia; Z68.41 Body mass index [BMI] 40.0-44.9, adult; N17.9 Acute kidney failure, unspecified; N18.9 Chronic kidney disease, unspecified; E66.9 Obesity, unspecified; E03.9 Hypothyroidism, unspecified; E78.5 Hyperlipidemia, unspecified; K21.9 Gastro-esophageal reflux disease without esophagitis; I71.20 Thoracic aortic aneurysm, without rupture, unspecified; M81.0 Age-related osteoporosis without current pathological fracture; I25.10 Atherosclerotic heart disease of native coronary artery without angina pectoris; Z60.2 Problems related to living alone; Z99.81 Dependence on supplemental oxygen; Z90.49 Acquired absence of other specified parts of digestive tract; Z79.52 Long term (current) use of systemic steroids; Z79.899 Other long term (current) drug therapy; Z87.891 Personal history of nicotine dependence
CPT/HCPCS: 36415; 71045; 71275; 80048; 80053; 80061; 80076; 82550; 82805; 82947; 83690; 83735; 83880; 84443; 84484; 85025; 85379; 85610; 85730; 87040; 93005; 94640; 94760; 99285; J0360; J0696; J1650; J1815; J1940; J2920; J2930; J7512; J7608; J7614; J7644; Q9967